=== PATIENT | female | born 2000 | race Caucasian/White ===

== ENCOUNTER 2024-07-12 12:18 | Emergency (ER) | payer OTHER, SELFPAY ==
[2024-07-12 12:24] VITALS: BP 133/83; PULSE 88; TEMP 36.9; O2SAT 100; BMI 28.0
[2024-07-12 12:57] LABS: Bilirubin Urine NEGATIVE (NEGATIVE); Blood Urine LARGE (NEGATIVE); Clarity Urine SL CLOUDY (CLEAR); Color Urine YELLOW (YELLOW); Glucose Urine UA NEGATIVE (NEGATIVE); Ketones Urine NEGATIVE (NEGATIVE); Leukocyte Esterase Urine TRACE (NEGATIVE); Nitrite Urine NEGATIVE (NEGATIVE); Protein Urine 30 mg/dL (NEG/TRACE); Specific Gravity Urine >=1.030 (1.005-1.025); Urobilinogen Urine 0.2 EU/dL (0.2-1.0)
[2024-07-12 12:58] LABS: Urine Microscopic Indicated YES
[2024-07-12 12:59] LABS: HCG Qualitative Urine* NEGATIVE (NEGATIVE); Internal Control Within Normal Limits
[2024-07-12 13:03] LABS: Bacteria Urine MODERATE #/HPF (NONE SEEN); Mucus Urine MODERATE (NONE SEEN); RBC Urine 75-100 #/HPF (0-2)
[2024-07-12 13:04] LABS: Calcium Oxalate Crystals Urine MODERATE; Cast Seen? NONE SEEN #/LPF (NONE SEEN); Crystals Seen? Seen #/HPF (None Seen); Squamous Epithelial Cell Urine MODERATE #/LPF (NONE/RARE); Urine Culture Indicated YES
--- NOTE | 2024-07-12 13:28 | ED.BACK1 ---
HPI HPI - Back Pain/Injury General Chief Complaint: Back Pain/Injury Stated Complaint: LOWER BACK PAIN Time Seen by Provider: 07/12/24 12:35 Source: patient Mode of arrival: walk-in Limitations: no limitations History of Present Illness HPI Narrative: The patient is a 24-year-old female who just diagnosed yesterday with kidney stone, she mentioned that the pain is not getting better with her pain medication She denies any fever or chills she just ate before arrival denying any nausea or vomiting Related Data Home Medications ?Medication ?Instructions ?Recorded ?Confirmed ketorolac 10 mg tablet 10 mg PO Q8H PRN pain 07/12/24 07/12/24 ondansetron 4 mg disintegrating 4 mg PO Q8H PRN nausea and vomiting 07/12/24 07/12/24 tablet oxycodone-acetaminophen 5 mg-325 1 tab PO Q6H PRN pain 07/12/24 07/12/24 mg tablet tamsulosin 0.4 mg capsule 0.4 mg PO Q24H 07/12/24 07/12/24 Allergies Allergy/AdvReac Type Severity Reaction Status Date / Time Penicillins AdvReac Mild Rash Verified 07/12/24 12:24 Opioid HPI Opioid Management Most Recent Opioid Data: No Data to Display Review of Systems ROS Status of ROS 10 or more systems reviewed and unremarkable except as noted in history and below PFSH PFSH Social History Little interest or pleasure in doing things: not at all Feeling down, depressed, or hopeless: not at all Exam Narrative Exam Narrative: Nurses notes and vital signs reviewed and patient is not hypoxic. General: Well-appearing and in no apparent distress. Skin: Warm, dry, no pallor noted. No rash. Head: Normocephalic, atraumatic. Neck: Supple, non-tender. Eye: Pupils are equal, round and EOMI. No scleral icterus. Ears, Nose, Mouth, and Throat: TM are clear, no nasal mucosal hypertrophy. Oral mucosa is moist, no posterior oropharynx erythema, uvula is mid-line Cardiovascular: Regular Rate and Rhythm without murmur, gallop or rub. Respiratory: No accessory muscle use or respiratory distress. Lungs are clear to auscultation, no wheezing, rales or rhonchi Chest Wall: no tenderness Back: No midline thoracic or lumbar vertebral tenderness. Right CVA tenderness Musculoskeletal: normal ROM, no calf or popliteal tenderness, no lower extremity edema/swelling GI: Abdomen is soft, non-distended. Normal bowel sounds. No masses appreciated. No tenderness to palpation. No rebound, guarding, or rigidity noted. Neurological: A&O x4. No cranial nerve dysfunction observed. No truncal ataxia. Moves all extremities. Sensation intact. Psychiatric: Cooperative and interactive. Normal mood and affect. Constitutional Vital Signs, click to edit/add: Last Vital Signs Temp 98.5 F 07/12/24 12:24 Pulse 88 07/12/24 12:24 Resp 18 07/12/24 12:24 BP 133/83 07/12/24 12:24 Pulse Ox 100 07/12/24 12:24 O2 Del Method Room Air 07/12/24 12:24 Course Vital Signs Vital signs: Vital Signs Temperature 98.5 F 07/12/24 12:24 Pulse Rate 88 07/12/24 12:24 Respiratory Rate 18 07/12/24 12:24 Blood Pressure 133/83 07/12/24 12:24 Pulse Oximetry 100 07/12/24 12:24 Oxygen Delivery Method Room Air 07/12/24 12:24 Temperature 98.5 F 07/12/24 12:24 Pulse Rate 88 07/12/24 12:24 Respiratory Rate 18 07/12/24 12:24 Blood Pressure 133/83 07/12/24 12:24 Pulse Oximetry 100 07/12/24 12:24 Oxygen Delivery Method Room Air 07/12/24 12:24 MDM - Back Pain/Injury MDM Narrative Medical decision making narrative: The patient had her workup received from [facility] and she just had a CAT scan and blood workup and urinalysis done less than 24 hours ago in the ER Moderate hydronephrosis on the right side with a 6 mm kidney stone No signs of infection I spoke with the nurse practitioner with in urology service and the patient will be sent over to his office right now The patient father will drive her over there The patient urinalysis shows a UTI in the test is negative Lab Data Labs: Lab Results 07/12/24 Range/Units 12:50 Urine Color Yellow (YELLOW) Urine Clarity Sl cloudy (CLEAR) Urine pH 6.0 (5.0-9.0) Ur Specific [place] >=1.030 A (1.005-1.025) Urine Protein 30 A (NEG/TRACE) mg/dL Urine Glucose (UA) Negative (NEGATIVE) mg/dL Urine Ketones Negative (NEGATIVE) mg/dL Urine Occult Blood Large A (NEGATIVE) Urine Nitrite Negative (NEGATIVE) Urine Bilirubin Negative (NEGATIVE) Urine Urobilinogen 0.2 (0.2-1.0) EU/dL Ur Leukocyte Esterase Trace A (NEGATIVE) Urine RBC 75-100 A (0-2) #/HPF Urine WBC 2-5 A (NONE SEEN) #/HPF Ur Squamous Epith Cells Moderate A (NONE/RARE) #/LPF Urine Crystals Seen A (None Seen) #/HPF Calcium Oxalate Crystal Moderate Urine Bacteria Moderate A (NONE SEEN) #/HPF Urine Casts None seen (NONE SEEN) #/LPF Urine Mucus Moderate A (NONE SEEN) Urine Yeast Seen A (NONE SEEN) Ur Culture Indicated? Yes Urine HCG, Qual Negative (NEGATIVE) Discharge Plan Discharge Chief Complaint: Back Pain/Injury Clinical Impression: Hydronephrosis, Kidney stone Patient Disposition: Home, Self-Care Time of Disposition Decision: 13:00 Condition: Good Prescriptions / Home Meds: No Action ketorolac 10 mg tablet 10 mg PO Q8H PRN (Reason: pain) oxycodone-acetaminophen 5-325 mg tablet 1 tab PO Q6H PRN (Reason: pain) tamsulosin 0.4 mg capsule 0.4 mg PO Q24H ondansetron 4 mg tablet,disintegrating 4 mg PO Q8H PRN (Reason: nausea and vomiting) Print Language: [place] Instructions: Hydronephrosis (ED) Referrals: Dr Styles [Other] - As soon as possible (please drive there now ) Physician,Non-Staff, [Primary Care Provider] - 1 week Discharge Date/Time: 07/12/24 13:09
== END 2024-07-12 13:09 | disposition home or self-care (01) ==
PROVIDERS: Emergency Provider Emergency Medicine
DX: N13.2 Hydronephrosis with renal and ureteral calculous obstruction (principal)
CPT/HCPCS: 81001; 84703; 87086; 99283

== ENCOUNTER 2024-09-24 23:29 | Emergency (ER) | payer OTHER, SELFPAY ==
[2024-09-24 23:45] VITALS: BP 124/92; PULSE 76; TEMP 36.6; O2SAT 97; BMI 28.2
--- NOTE | 2024-09-24 23:50 | ED_ITS ---
HPI - Female Genitourinary General Chief complaint: Urogenital-Female Stated complaint: uti Time Seen by Provider: 09/24/24 23:30 Source: patient Mode of arrival: walk-in Limitations: no limitations History of Present Illness HPI Narrative: 24-year-old female presents to the emergency department for chief complaint of dysuria and frequency. She has had it for the past day or 2. No flank pain or fever or vomiting. She believes she has a UTI. She has been taking an [id number] urinary anesthetic. Related Data Home Medications ?Medication ?Instructions ?Recorded ?Confirmed ketorolac 10 mg tablet 10 mg PO Q8H PRN pain 07/12/24 07/12/24 ondansetron 4 mg disintegrating 4 mg PO Q8H PRN nausea and vomiting 07/12/24 07/12/24 tablet oxycodone-acetaminophen 5 mg-325 1 tab PO Q6H PRN pain 07/12/24 07/12/24 mg tablet tamsulosin 0.4 mg capsule 0.4 mg PO Q24H 07/12/24 07/12/24 Previous Rx's ?Medication ?Instructions ?Recorded cephalexin 500 mg capsule 500 mg PO TID 7 days #21 caps 09/25/24 Allergies Allergy/AdvReac Type Severity Reaction Status Date / Time Penicillins AdvReac Mild Rash Verified 09/24/24 23:44 Review of Systems ROS Narrative A ten point review of systems is negative except as noted above. PFSH PFSH Social History Little interest or pleasure in doing things: not at all Feeling down, depressed, or hopeless: not at all Exam Narrative Exam Narrative: Nurses note and vital signs reviewed and patient is not hypoxic. General: The patient appears well and in no apparent distress. Patient is resting comfortably on cart. Skin: Warm, dry, no pallor noted. There is no rash noted. Head: Normocephalic, atraumatic Eye: Normal conjunctiva, no drainage Ears, Nose, Mouth, and Throat: oral mucosa is moist. Nares patent. Cardiovascular: Regular Rate and Rhythm Respiratory: Patient is in no distress, no accessory muscle use, lungs are clear to auscultation, no wheezing, rales or rhonchi Back: non-tender, no CVA tenderness bilaterally to percussion. GI: Soft and nontender Musculoskeletal: No joint swelling Neurological: A&O, normal speech Psychiatric: Cooperative Constitutional Vital Signs, click to edit/add: Last Vital Signs Temp 98 F 09/24/24 23:45 Pulse 76 09/24/24 23:45 Resp 16 09/24/24 23:45 BP 124/92 H 09/24/24 23:45 Pulse Ox 97 09/24/24 23:45 O2 Del Method Room Air 09/24/24 23:45 Course Vital Signs Vital signs: Vital Signs Temperature 98 F 09/24/24 23:45 Pulse Rate 76 09/24/24 23:45 Respiratory Rate 16 09/24/24 23:45 Blood Pressure 124/92 H 09/24/24 23:45 Pulse Oximetry 97 09/24/24 23:45 Oxygen Delivery Method Room Air 09/24/24 23:45 Temperature 98 F 09/24/24 23:45 Pulse Rate 76 09/24/24 23:45 Respiratory Rate 16 09/24/24 23:45 Blood Pressure 124/92 H 09/24/24 23:45 Pulse Oximetry 97 09/24/24 23:45 Oxygen Delivery Method Room Air 09/24/24 23:45 MDM - Female Genitourinary MDM Narrative Medical decision making narrative: UTI is identified and test is negative. She was started on Keflex here and prescribed same. Treatment diagnosis and follow-up were discussed with the patient. Differential Diagnosis Differential diagnosis: Likely urinary tract infection and other (Pyelonephritis) Lab Data Attestation: I reviewed the patient's lab results. Labs: Lab Results 09/24/24 09/24/24 Range/Units 23:50 23:55 Urine Color Yellow (YELLOW) Urine Clarity Slightly cloudy A (CLEAR) Urine pH 6.0 (5.0-9.0) Ur Specific [place] 1.025 (1.005-1.025) Urine Protein Negative (NEG/TRACE) mg/dL Urine Glucose (UA) Negative (NEGATIVE) mg/dL Urine Ketones Negative (NEGATIVE) mg/dL Urine Occult Blood Negative (NEGATIVE) Urine Nitrite Negative (NEGATIVE) Urine Bilirubin Negative (NEGATIVE) Urine Urobilinogen 1.0 (0.2-1.0) EU/dL Ur Leukocyte Esterase Small A (NEGATIVE) Urine RBC None seen (0-2) #/HPF Urine WBC 75-100 A (NONE SEEN) #/HPF Ur Squamous Epith Cells Moderate A (NONE/RARE) #/LPF Urine Crystals None seen (None Seen) #/HPF Urine Bacteria Trace A (NONE SEEN) #/HPF Urine Casts None seen (NONE SEEN) #/LPF Urine Mucus None seen (NONE SEEN) Ur Culture Indicated? Yes Urine HCG, Qual Negative (NEGATIVE) Ref Lab Order Date 09/24/24 Ref Lab Test Name Urine culture Ref Test Addition Info [facility] Discharge Plan Discharge Chief Complaint: Urogenital-Female Clinical Impression: Urinary tract infection Patient Disposition: Home, Self-Care Time of Disposition Decision: 00:17 Condition: Good Mode of Transportation: Private Vehicle Prescriptions / Home Meds: New cephalexin 500 mg capsule 500 mg PO TID 7 Days Qty: 21 0RF No Action ketorolac 10 mg tablet 10 mg PO Q8H PRN (Reason: pain) oxycodone-acetaminophen 5-325 mg tablet 1 tab PO Q6H PRN (Reason: pain) tamsulosin 0.4 mg capsule 0.4 mg PO Q24H ondansetron 4 mg tablet,disintegrating 4 mg PO Q8H PRN (Reason: nausea and vomiting) Print Language: [place] Instructions: Urinary Tract Infection in Women (ED) Referrals: Physician,Non-Staff, [Primary Care Provider] - 1 week
[2024-09-24 23:56] LABS: Bilirubin Urine NEGATIVE (NEGATIVE); Blood Urine NEGATIVE (NEGATIVE); Glucose Urine UA NEGATIVE (NEGATIVE); HCG Qualitative Urine* NEGATIVE (NEGATIVE); Internal Control Within Normal Limits; Ketones Urine NEGATIVE (NEGATIVE); Leukocyte Esterase Urine SMALL (NEGATIVE); Nitrite Urine NEGATIVE (NEGATIVE); Protein Urine NEGATIVE (NEG/TRACE); Specific Gravity Urine 1.025 (1.005-1.025)
[2024-09-24 23:58] LABS: Clarity Urine SLIGHTLY CLOUDY (CLEAR); Color Urine YELLOW (YELLOW)
[2024-09-25 00:06] LABS: Bacteria Urine TRACE #/HPF (NONE SEEN); Mucus Urine NONE SEEN (NONE SEEN); RBC Urine NONE SEEN #/HPF (0-2); WBC Urine 75-100 #/HPF (NONE SEEN)
[2024-09-25 00:07] LABS: Cast Seen? NONE SEEN #/LPF (NONE SEEN); Crystals Seen? None Seen #/HPF (None Seen); Squamous Epithelial Cell Urine MODERATE #/LPF (NONE/RARE); Urine Culture Indicated YES
[2024-09-25 00:09] LABS: BOX Test Reference Lab Firelands
[2024-09-25] MEDS: CEPHALEXIN 500 MG CAPSULE PO (00:27)
== END 2024-09-25 00:29 | disposition home or self-care (01) ==
PROVIDERS: Emergency Provider Emergency Medicine
DX: N39.0 Urinary tract infection, site not specified (principal)
CPT/HCPCS: 36415; 81001; 84703; 87086; 87150; 87186; 99283

== ENCOUNTER 2024-11-15 03:52 | Emergency (ER) | payer OTHER, SELFPAY ==
[2024-11-15 03:59] VITALS: BP 129/87; PULSE 110; TEMP 37.1; O2SAT 97; BMI 26.8
--- OUTSIDE RECORDS SUMMARY | 2024-11-15 04:04 | XMS_ITS | CCD ---
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 serum b-hCG level is suggested. [facility] has confirmed the use of plasma for this test. This has not been cleared or approved by the U.S. Food and Drug Administration. The FDA has determined that such clearance is not necessary. Performed By: #### U HCG #### [facility] [address] [place], [place] [id number] [employer] Up Operator: Ganesh Newman MD Alanine aminotransferase [En zymatic activity/volume] in Serum or PlasmaOrdered By: Felix Simpson on 07-11-2024 ALT [Catalytic activity/Vol] 30 U/L Normal [facility] Comment on above: Performed By: #### H EPATIC, LIPASE, BMP, CBC #### [facility] [address] [place] [id number] [facility] ALT [Catalytic activity/Vol] Alanine aminotransferase [Enzymatic activity/volume] in Serum or Plasma [facility] Albumin [Mass/volume] in Ser um or Plasma by Bromocresol green (BCG) dye binding methoOrdered By: Felix Simpson on 07-11-2024 Albumin BCG dye [Mass/Vol] 4.6 g/dL 3.5-5.7 [facility] Albumin BCG dye [Mass/Vol] Albumin [Mass/volume] in Serum or Plasma by Bromocresol green (BCG) dye binding metho 3.5-5.7 [facility] Alkaline phosphatase [Enzyma tic activity/volume] in Serum or PlasmaOrdered By: Felix Simpson on 07-11-2024 ALP [Catalytic activity/Vol] 58 U/L Normal [facility] Comment on above: Performed By: #### H EPATIC, LIPASE, BMP, CBC #### [facility] [address] [place] [address] [place] ALP [Catalytic activity/Vol] Alkaline phosphatase [Enzymatic activity/volume] in Serum or Plasma [facility] Appearance of UrineOrdered B y: Felix Montoyamindi on 07-11-2024 Appearance (U) Urine appearance Abnormal Clear [facility] Aspartate aminotransferase [ Enzymatic activity/volume] in Serum or PlasmaOrdered By: Felix Montoyamindi on 07-11-2024 AST [Catalytic activity/Vol] 24 U/L Normal 13-39 [facility] Comment on above: Performed By: #### H EPATIC, LIPASE, BMP, CBC #### [address] AST [Catalytic activity/Vol] Aspartate aminotransferase [Enzymatic activity/volume] in Serum or Plasma 13-39 [facility] Automated basophil %Ordered By: Felix Simpson on 07-11-2024 Basophils/100 WBC (Bld) 0.6 % Normal . [facility] Comment on above: Performed By: #### H EPATIC, LIPASE, BMP, CBC #### [facility] [address] [place] [address] Automated basophil countOrde red By: Felix Simpson on 07-11-2024 Basophils (Bld) [#/Vol] 0.1 10*3/uL Normal 0.0-0.2 [facility] Comment on above: Result Comment: PERF ORMED BY: [place] [address] PATHOLOGIST [employer] WARREN BUSATMANTE M.D. Performed By: #### H EPATIC, LIPASE, BMP, CBC #### [address] Automated blood monocyte cou ntOrdered By: Felix Simpson on 07-11-2024 Monocytes (Bld) [#/Vol] 0.9 10*3/uL High 0.0-0.8 [facility] Comment on above: Performed By: #### H EPATIC, LIPASE, BMP, CBC #### [address] Automated eosinophil %Ordere d By: Felix Simpson on 07-11-2024 Eosinophils/100 WBC (Bld) 0.6 % Normal . [facility] Comment on above: Performed By: #### H EPATIC, LIPASE, BMP, CBC #### [address] Automated eosinophil countOr dered By: Felix Simpson on 07-11-2024 Eosinophils (Bld) [#/Vol] 0.1 10*3/uL Normal 0.0-0.45 [facility] Comment on above: Performed By: #### H EPATIC, LIPASE, BMP, CBC #### [address] Automated monocyte %Ordered By: Felix Simposn on 07-11-2024 Monocytes/100 WBC (Bld) 10.5 % Normal . [facility] Comment on above: Performed By: #### H EPATIC, LIPASE, BMP, CBC #### [address] Automated neutrophil %Ordere d By: Felix Simpson on 07-11-2024 Neutrophils/100 WBC (Bld) 63.3 % Normal . [facility] Comment on above: Performed By: #### H EPATIC, LIPASE, BMP, CBC #### [address] Bacteria [Presence] in Urine by AutomatedOrdered By: Felix Simpson on 07-11-2024 Bacteria Auto Ql (U) Rare [HPF] None Seen [facility] Bacteria Auto Ql (U) Bacteria [Presence] in Urine by Automated None Seen [facility] Basic Metabolic Panelon 06-22 Creatinine Clr Calc Pharmacy 123.53 Normal [facility] Comment on above: Performed By: #### H EPATIC, LIPASE, BMP, CBC #### [address] GFR/1.73 sq M.predicted MDRD (S/P/Bld) [Vol rate/Area] mL/min/{1.73_m2} Normal [facility] Comment on above: Performed By: #### H EPATIC, LIPASE, BMP, CBC #### [address] Basophils Auto (Bld) [#/Vol] Ordered By: Felix Simpson on 07-11-2024 Basophils (Bld) [#/Vol] Automated basoph il count 0.0-0.2 [facility] Basophils/100 WBC Auto (Bld) Ordered By: Felix Simpson on 07-11-2024 Basophils/100 WBC (Bld) Automated basoph il % . [facility] Bilirubin Test strip Ql (U)O rdered By: Felix Simpson on 07-11-2024 Bilirubin Ql (U) Negative Negative [facility] Bilirubin Ql (U) Bilirubin.total [Presence] in Urine by Test strip Negative [facility] Bilirubin.direct [Mass/volum e] in Serum or PlasmaOrdered By: Felix Simpson on 07-11-2024 Bilirubin.direct [Mass/Vol] 0.20 mg/dL High 0.03-0.18 [facility] Bilirubin.direct [Mass/Vol] Bilirubin.direct [Mass/volume] in Serum or Plasma High 0.03-0.18 [facility] Bilirubin.total [Mass/volume ] in Serum or PlasmaOrdered By: Felix Simpson on 07-11-2024 Bilirubin [Mass/Vol] 0.9 mg/dL Normal 0.3-1.0 [facility] Comment on above: Performed By: #### H EPATIC, LIPASE, BMP, CBC #### [address] Bilirubin [Mass/Vol] Bilirubin.total [Mass/volume] in Serum or Plasma 0.3-1.[address] [facility] [address] abdomen pelvis wo conon 1 CT abdomen pelvis wo con [facility] [address] [place] [address] CT Scan Report Signed Patient: Beatris Mack MR#: [id number] : 2000 Acct:[id number] Age/Sex: 24 / F ADM Date: 07/11/24 Loc: ER Room: Type: [facility] ER Attending Dr: Copies to: Felix Simpson DO Ordering Provider: Felix Simpson DO Date of Service: 07/11/24 CT/CT abdomen pelvis wo con: r flank pain CT abdomen pelvis wo con 07/11/2024 2:43 PM SIGNS AND SYMPTOMS: Right flank pain, nausea, history of kidney stones TECHNIQUE: Multidetector ct axial images of the abdomen and pelvis were obtained without IV contrast. Multiplanar reformats were performed and reviewed to further define anatomy and possible pathology. CT was performed with one or more of the following dose reduction techniques: Automated exposure control, adjustment of the mA and/or kV according to patient size, or use of iterative reconstruction technique. COMPARISON: 01/15/2024 FINDINGS: Lower Chest: Within normal limits. ABDOMEN: Liver: Within normal limits. Bile Ducts: Normal caliber. Gallbladder: No calcified gallstones. Normal caliber wall. Pancreas: Within normal limits. Spleen: Within normal limits. Adrenals: Within normal limits. Kidneys: There is right-sided hydronephrosis. There are nonobstructing renal stones bilaterally measuring up to 6 mm in greatest dimension on the right and 4 mm in greatest dimension on the left. Pelvis: Reproductive Organs: No pelvic masses. Ureters: There is a 6 mm stone in the proximal right ureter just below the right ureteropelvic junction. Bladder: Within normal limits. Bowel: Normal caliber. There is a normal appendix in the right lower quadrant. Mesenteric Lymph Nodes: No enlarged mesenteric lymph nodes. Peritoneum: No ascites or free air, no fluid collection. Vessels: within normal limits Retroperitoneum: Within normal limits. Abdominal Wall: Within normal limits. Bones: Within normal limits. CT/CT abdomen pelvis wo con IMPRESSION: There is a 6 mm stone in the proximal right ureter just below the right ureteropelvic junction. This is new compared to the prior exam. There is right-sided hydronephrosis which is new compared to the prior exam. Bilateral nonobstructing renal stones are present as above. Impression dictated by: Gayle Knox M.D.07/11/2024 3:17 PM Dictation Location: [place] [address] Transcribed By: [facility] 07/11/241516 Dictated By: Gayle Knox II, MD 07/11/241510 Signed By: 07/11/241516 Normal [facility] Calcium [Mass/volume] in Ser um or PlasmaOrdered By: Felix Simpson on 07-11-2024 Calcium [Mass/Vol] 10.0 mg/dL Normal 8.6-10.3 [facility] Comment on above: Performed By: #### H EPATIC, LIPASE, BMP, CBC #### [facility] [address] Calcium [Mass/Vol] Calcium [Mass/volume] in Serum or Plasma 8.6-10.3 [facility] Carbon dioxide, total [Moles /volume] in Serum or PlasmaOrdered By: Felix Simpson on 07-11-2024 CO2 [Moles/Vol] 24.2 mmol/L Normal 21.0-31.0 [facility] Comment on above: Performed By: #### H EPATIC, LIPASE, BMP, CBC #### [facility] [address] CO2 [Moles/Vol] Carbon dioxide, total [Moles/volume] in Serum or Plasma 21.0-31.0 [facility] Chloride [Moles/volume] in S sindi or PlasmaOrdered By: Felix Simpson on 07-11-2024 Chloride [Moles/Vol] 104 mmol/L Normal 98-107 [facility] Comment on above: Performed By: #### H EPATIC, LIPASE, BMP, CBC #### [facility] [address] [place] [address] Chloride [Moles/Vol] Chloride [Moles/volume] in Serum or Plasma 98-107 [facility] Color Auto (U)Ordered By: Drew Simpson on 07-11-2024 Color (U) Color of Urine by Auto Yellow [facility] Color of Urine by AutoOrdere d By: Felix Simpson on 07-11-2024 Color (U) Yellow Normal [facility] Comment on above: Order Comment: Name Collection Type:: Clean-Voided Midstream Performed By: #### A DDONUAPLUS, UHCG #### [facility] [address] [place] [address] Complete Blood Count Auto Di ffon 07-11-2024 Mean Corpuscular HGB Conc 33.2 g/dL Normal 32.0-35.0 [facility] Comment on above: Performed By: #### H EPATIC, LIPASE, BMP, CBC #### [facility] [address] [place] [address] [place] Monocytes/100 WBC (Bld) 16.73 % Normal 0.00-20.00 [facility] Comment on above: Performed By: #### H EPATIC, LIPASE, BMP, CBC #### [facility] [address] [place] [address] [place] NRBC% 0.0 /100{WBC} Normal 0-0.5 [facility] Comment on above: Performed By: #### H EPATIC, LIPASE, BMP, CBC #### [facility] [address] [place] [address] [place] Creatinine [Mass/volume] in Serum or PlasmaOrdered By: Felix Simpson on 07-11-2024 Creatinine [Mass/Vol] 0.77 mg/dL Normal 0.60-1.20 [facility] Comment on above: Performed By: #### H EPATIC, LIPASE, BMP, CBC #### [address] Creatinine [Mass/Vol] Creatinine [Mass/volume] in Serum or Plasma 0.60-1.20 [facility] Crystals [Presence] in Urine by AutomatedOrdered By: Felix Simpson on 07-11-2024 Crystals Auto Ql (U) 2+ [HPF] [facility] Crystals Auto Ql (U) Crystals [Presence] in Urine by Automated [facility] Dipstick and Microscopicon 1 Bacteria,Urine Rare Normal None Seen [facility] Comment on above: Order Comment: Name Collection Type:: Clean-Voided Midstream Performed By: #### A DDONUAPLUS, UHCG #### [facility] [address] [place] [address] [place] Bilirubin,Urine Negative Normal Negative [facility] Comment on above: Order Comment: Name Collection Type:: Clean-Voided Midstream Performed By: #### A DDONUAPLUS, UHCG #### [facility] [address] [place] [address] [place] Glucose Ql (U) Normal Normal Normal [facility] Comment on above: Order Comment: Name Collection Type:: Clean-Voided Midstream Performed By: #### A DDONUAPLUS, UHCG #### [facility] [address] [place] [address] [place] Hyaline Casts,Urine None Normal 0-8 [facility] Comment on above: Order Comment: Name Collection Type:: Clean-Voided Midstream Performed By: #### A DDONUAPLUS, UHCG #### [place] [address] [place] Mucus,Urine 3+ Critically abnormal [facility] Comment on above: Order Comment: Name Collection Type:: Clean-Voided Midstream Performed By: #### A DDONUAPLUS, UHCG #### [place] [address] [place] Nitrite,Urine Negative Normal Negative [facility] Comment on above: Order Comment: Name Collection Type:: Clean-Voided Midstream Performed By: #### A DDONUAPLUS, UHCG #### [address] Occult Blood,Urine 3+ High Negative [facility] Comment on above: Order Comment: Name Collection Type:: Clean-Voided Midstream Performed By: #### A DDONUAPLUS, UHCG #### [address] Othe Crystals,Urine 2+ Normal [facility] Comment on above: Order Comment: Name Collection Type:: Clean-Voided Midstream Performed By: #### A DDONUAPLUS, UHCG #### [place] [address] [place] RBC,Urine Innumerable High 0-4 [facility] Comment on above: Order Comment: Name Collection Type:: Clean-Voided Midstream Performed By: #### A DDONUAPLUS, UHCG #### [place] [address] [place] Specificy [place],Urine 1.032 High 1.001-1.030 [facility] Comment on above: Order Comment: Name Collection Type:: Clean-Voided Midstream Performed By: #### A DDONUAPLUS, UHCG #### [facility] [address] Squamous Epithelial Cell,Urine 5-9 High 0-2 [facility] Comment on above: Order Comment: Name Collection Type:: Clean-Voided Midstream Performed By: #### A DDONUAPLUS, UHCG #### [address] Urobilinogen,Urine Normal Normal Normal [facility] Comment on above: Order Comment: Name Collection Type:: Clean-Voided Midstream Performed By: #### A DDONUAPLUS, UHCG #### [address] WBC CLUMP, Urine Occasional High None Seen [facility] Comment on above: Order Comment: Name Collection Type:: Clean-Voided Midstream Performed By: #### A DDONUAPLUS, UHCG #### [address] WBC,Urine 10-19 High 0-4 [facility] Comment on above: Order Comment: Name Collection Type:: Clean-Voided Midstream Performed By: #### A DDONUAPLUS, UHCG #### [address] Eosinophils Auto (Bld) [#/Vo l]Ordered By: Felix Simpson on 07-11-2024 Eosinophils (Bld) [#/Vol] Automated eosinophil count 0.0-0.45 [facility] Eosinophils/100 WBC Auto (Bl d)Ordered By: Felix Simpson on 07-11-2024 Eosinophils/100 WBC (Bld) Automated eosinophil % . [facility] Epithelial cells.squamous [# /area] in Urine sediment by Automated countOrdered By: Felix Simpson on 07-11-2024 Epithelial cells.squamous Auto (Urine sed) [#/Area] 5-9 [HPF] High 0-2 [facility] Epithelial cells.squamous Auto (Urine sed) [#/Area] Epithelial cells.squamous [#/area] in Urine sediment by Automated count High 0-2 [facility] Erythrocyte distribution wid th Auto (RBC) [Ratio]Ordered By: Felix Simpson on 07-11-2024 Erythrocyte distribution width (RBC) [Ratio] Erythrocyte distribution width [Ratio] by Automated count 11.9-15.3 [facility] Erythrocyte distribution wid th [Ratio] by Automated countOrdered By: Felix Simpson on 07-11-2024 Erythrocyte distribution width (RBC) [Ratio] 14.7 % Normal 11.9-15.3 [facility] Comment on above: Performed By: #### H EPATIC, LIPASE, BMP, CBC #### [facility] [address] Erythrocytes [#/area] in Uri ne sediment by Automated countOrdered By: Felix Simspon on 07-11-2024 RBC Auto (Urine sed) [#/Area] Innumerable [HPF] High 0-4 [facility] RBC Auto (Urine sed) [#/Area] Erythrocytes [#/area] in Urine sediment by Automated count High 0-4 [facility] Erythrocytes [#/volume] in B lood by Automated countOrdered By: Felix Simpson on 07-11-2024 RBC (Bld) [#/Vol] 4.30 10*6/uL Normal 3.60-5.00 [facility] Comment on above: Performed By: #### H EPATIC, LIPASE, BMP, CBC #### [facility] [address] Globulin Calc (S) [Mass/Vol] Ordered By: Felix Simpson on 07-11-2024 Globulin (S) [Mass/Vol] Serum globulin measurement by calculation (mass/volume) [facility] Glucose [Mass/volume] in Ser um or PlasmaOrdered By: Felix Simpson on 07-11-2024 Glucose [Mass/Vol] 91 mg/dL Normal 70-100 [facility] Comment on above: ADA recommended refe rence rangeRandom Glucose Reference Range is dependent on time and content of last meal. Glucose of more than 200 mg/dL in a nonstressed, ambulatory subject supports the diagnosis of Diabetes Mellitus. Result Comment: Kennard om Glucose Reference Range is dependent on time and content of last meal. Glucose of more than 200 mg/dL in a nonstressed, ambulatory subject supports the diagnosis of Diabetes Mellitus. ADA recommended reference range Performed By: #### H EPATIC, LIPASE, BMP, CBC #### [facility] [address] Glucose [Mass/Vol] Glucose [Mass/volume] in Serum or Plasma 70-100 [facility] Comment on above: ADA recommended refe rence rangeRandom Glucose Reference Range is dependent on time and content of last meal. Glucose of more than 200 mg/dL in a nonstressed, ambulatory subject supports the diagnosis of Diabetes Mellitus. Glucose [Mass/volume] in Uri ne by Test stripOrdered By: Felix Simpson on 07-11-2024 Glucose Test strip (U) [Mass/Vol] Normal mg/dL Normal [facility] Glucose Test strip (U) [Mass/Vol] Glucose [Mass/volume] in Urine by Test strip Normal [facility] HCG ( test) IA.rapi d Ql (U)Ordered By: Felix Simpson on 07-11-2024 HCG ( test) Ql (U) Negative [facility] HCG ( test) Ql (U) Urine human chorionic gonadotropin (hCG) detection by immunoassay [facility] HCG,Urineon 07-11-2024 Beta HCG ( test) Ql (U) Negative Normal [facility] Comment on above: Order Comment: Name Collection Type:: Clean-Voided Midstream Result Comment: PERF ORMED BY: [place] [address] PATHOLOGIST [employer] WARREN BUSTAMANTE M.D. Performed By: #### A DDONUAPLUS, [facility] #### [facility] [address] [place] [address] Hematocrit Auto (Bld) [Volum e fraction]Ordered By: Felix Simpson on 07-11-2024 Hematocrit (Bld) [Volume fraction] Hematocrit [Volume Fraction] of Blood by Automated count 34.0-46.4 [facility] Hematocrit [Volume Fraction] of Blood by Automated countOrdered By: Felix Simpson on 07-11-2024 Hematocrit (Bld) [Volume fraction] 38.2 % Normal 34.0-46.4 [facility] Comment on above: Performed By: #### H EPATIC, LIPASE, BMP, CBC #### [address] Hemoglobin Test strip Ql (U) Ordered By: Felix Simpson on 07-11-2024 Hemoglobin Ql (U) 3+ High Negative [facility] Hemoglobin Ql (U) Hemoglobin [Presence] in Urine by Test strip High Negative [facility] Hemoglobin [Mass/volume] in BloodOrdered By: Felix Simpson on 07-11-2024 Hemoglobin (Bld) [Mass/Vol] 12.7 g/dL Normal 11.8-15.4 [facility] Comment on above: Performed By: #### H EPATIC, LIPASE, BMP, CBC #### [address] Hemoglobin (Bld) [Mass/Vol] Hemoglobin [Mass/volume] in Blood 11.8-15.4 [facility] Hepatic Panelon 07-11-2024 Albumin [Mass/Vol] 4.6 g/dL Normal 3.5-5.7 [facility] Comment on above: Performed By: #### H EPATIC, LIPASE, BMP, CBC #### [address] Bilirubin,Indirect 0.7 mg/dL Normal [facility] Comment on above: Performed By: #### H EPATIC, LIPASE, BMP, CBC #### [address] Bilirubin.indirect [Mass/Vol] 0.20 mg/dL High 0.03-0.18 [facility] Comment on above: Performed By: #### H EPATIC, LIPASE, BMP, CBC #### [address] Hyaline casts [#/area] in Ur ine sediment by Automated countOrdered By: Felix Simpson on 07-11-2024 Hyaline casts Auto (Urine sed) [#/Area] None [LPF] 0-8 [facility] Hyaline casts Auto (Urine sed) [#/Area] Hyaline casts [#/area] in Urine sediment by Automated count 0-8 [facility] Ketones Test strip Ql (U)Ord ered By: Felix Simpson on 07-11-2024 Ketones Ql (U) Ketones [Presence] in Urine by Test strip High Negative [facility] Ketones [Presence] in Urine by Test stripOrdered By: Felix Simpson on 07-11-2024 Ketones Ql (U) 3+ High Negative [facility] Comment on above: Order Comment: Name Collection Type:: Clean-Voided Midstream Performed By: #### A DDONUAERASMO, [facility] #### [facility] [address] Leukocyte clumps [Presence] in Urine by AutomatedOrdered By: Felix Simpson on 07-11-2024 Leukocyte clumps Auto Ql (U) Occasional [LPF] High None Seen [facility] Leukocyte clumps Auto Ql (U) Leukocyte clumps [Presence] in Urine by Automated High None Seen [facility] Leukocyte esterase [Presence ] in Urine by Test stripOrdered By: Felix Simpson on 07-11-2024 Leukocyte esterase Test strip Ql (U) Negative Normal Negative [facility] Comment on above: Order Comment: Name Collection Type:: Clean-Voided Midstream Performed By: #### A DDONUAPLUS, [facility] #### [facility] [address] [place] [address] Leukocyte esterase Test strip Ql (U) Leukocyte esterase [Presence] in Urine by Test strip Negative [facility] Leukocytes [#/area] in Urine sediment by Automated countOrdered By: Felix Simpson on 07-11-2024 WBC Auto (Urine sed) [#/Area] 10-19 [HPF] High 0-4 [facility] WBC Auto (Urine sed) [#/Area] Leukocytes [#/area] in Urine sediment by Automated count High 0-4 [facility] Leukocytes [#/volume] correc lashon for nucleated erythrocytes in Blood by Automated counOrdered By: Felix Simpson on 07-11-2024 WBC corrected for nucl RBC Auto (Bld) [#/Vol] 8.8 10*3/uL 3.8-11.6 [facility] WBC corrected for nucl RBC Auto (Bld) [#/Vol] Leukocytes [#/volume] corrected for nucleated erythrocytes in Blood by Automated coun 3.8-11.6 [facility] Leukocytes [#/volume] in Blo od by Automated countOrdered By: Felix Simpson on 07-11-2024 WBC (Bld) [#/Vol] 8.8 10*3/uL Normal 3.8-11.6 [facility] Comment on above: Performed By: #### H EPATIC, LIPASE, BMP, CBC #### [facility] [address] Lipase [Enzymatic activity/v olume] in Serum or PlasmaOrdered By: Felix Simpson on 07-11-2024 Lipase [Catalytic activity/Vol] 26.0 U/L Normal 11.0-82.0 [facility] Comment on above: Result Comment: PERF ORMED BY: [place] [address] PATHOLOGIST [employer] WARREN BUSTAMANTE M.D. Performed By: #### H EPATIC, LIPASE, BMP, CBC #### [facility] [address] [place] [address] Lipase [Catalytic activity/Vol] Lipase [Enzymatic activity/volume] in Serum or Plasma 11.0-82.0 [facility] Lymphocytes Auto (Bld) [#/Vo l]Ordered By: Felix Simpson on 07-11-2024 Lymphocytes (Bld) [#/Vol] Lymphocytes [#/volume] in Blood by Automated count 1.00-4.8 [facility] Lymphocytes [#/volume] in Bl ood by Automated countOrdered By: Felix Simpson on 07-11-2024 Lymphocytes (Bld) [#/Vol] 2.2 10*3/uL Normal 1.00-4.8 [facility] Comment on above: Performed By: #### H EPATIC, LIPASE, BMP, CBC #### [facility] [address] [place] [address] [place] Lymphocytes/100 WBC Auto (Bl d)Ordered By: Felix Simpson on 07-11-2024 Lymphocytes/100 WBC (Bld) Lymphocytes/10 0 leukocytes in Blood by Automated count . [facility] Lymphocytes/100 leukocytes i n Blood by Automated countOrdered By: Felix Simpson on 07-11-2024 Lymphocytes/100 WBC (Bld) 25.0 % Normal . [facility] Comment on above: Performed By: #### H EPATIC, LIPASE, BMP, CBC #### [facility] [address] MCH Auto (RBC) [Entitic mass ]Ordered By: Felix Simpson on 07-11-2024 MCH (RBC) [Entitic mass] MCH [Entitic ma ss] by Automated count 24.7-34.3 [facility] MCH [Entitic mass] by Automa lashon countOrdered By: Felix Simpson on 07-11-2024 MCH (RBC) [Entitic mass] 29.5 pg Normal 24.7-34.3 [facility] Comment on above: Performed By: #### H EPATIC, LIPASE, BMP, CBC #### [facility] [address] MCHC Auto (RBC) [Mass/Vol]Or dered By: Felxi Simpson on 07-11-2024 MCHC (RBC) [Mass/Vol] 33.2 g/dL 32.0-35.0 [facility] MCHC (RBC) [Mass/Vol] MCHC [Mass/volume] by Automated count 32.0-35.0 [facility] MCV Auto (RBC) [Entitic vol] Ordered By: Felix Simpson on 07-11-2024 MCV (RBC) [Entitic vol] MCV [Entitic volume] by Automated count 80-100 [facility] MCV [Entitic volume] by Auto mated countOrdered By: Felix Simpson on 07-11-2024 MCV (RBC) [Entitic vol] 88.9 fL Normal 80-100 [facility] Comment on above: Performed By: #### H EPATIC, LIPASE, BMP, CBC #### [facility] [address] Monocyte distribution width [Entitic volume] in Blood by AutomatedOrdered By: Felix Simpson on 07-11-2024 Monocyte distribution width Auto (Bld) [Entitic vol] 16.73 % 0.00-20.00 [facility] Monocyte distribution width Auto (Bld) [Entitic vol] Monocyte distribution width [Entitic volume] in Blood by Automated 0.00-20.00 [facility] Monocytes Auto (Bld) [#/Vol] Ordered By: Felix Simpson on 07-11-2024 Monocytes (Bld) [#/Vol] Automated blood monocyte count High 0.0-0.8 [facility] Monocytes/100 WBC Auto (Bld) Ordered By: Felix Simpson on 07-11-2024 Monocytes/100 WBC (Bld) Automated monocy te % . [facility] Mucus [Presence] in Urine by AutomatedOrdered By: Felix Simpson on 07-11-2024 Mucus Auto Ql (U) 3+ [LPF] Abnormal [facility] Mucus Auto Ql (U) Mucus [Presence] in Urine by Automated Abnormal [facility] Neutrophils Auto (Bld) [#/Vo l]Ordered By: Felix Simpson on 07-11-2024 Neutrophils (Bld) [#/Vol] Neutrophils [#/volume] in Blood by Automated count 1.8-7.7 [facility] Neutrophils [#/volume] in Bl ood by Automated countOrdered By: Felix Simpson on 07-11-2024 Neutrophils (Bld) [#/Vol] 5.5 10*3/uL Normal 1.8-7.7 [facility] Comment on above: Performed By: #### H EPATIC, LIPASE, BMP, CBC #### [facility] [address] Neutrophils/100 WBC Auto (Bl d)Ordered By: Felix Simpson on 07-11-2024 Neutrophils/100 WBC (Bld) Automated neutrophil % . [facility] Nitrite Test strip Ql (U)Ord ered By: Felix Simpson on 07-11-2024 Nitrite Ql (U) Negative Negative [facility] Nitrite Ql (U) Nitrite [Presence] in Urine by Test strip Negative [facility] No Panel InformationOrdered By: Felix Simpson on 07-11-2024 Estimated GFR (CKD-EPI) > 60.0 mL/Min [facility] Creatinine Clearance (Chem 123.53 [facility] Nucleated erythrocytes [Pres ence] in Blood by Automated countOrdered By: Felix Simpson on 07-11-2024 Nucleated RBC Auto Ql (Bld) 0.0 /100{WBC} 0-0.5 [facility] Nucleated RBC Auto Ql (Bld) Nucleated erythrocytes [Presence] in Blood by Automated count 0-0.5 [facility] Platelet mean volume Auto (B ld) [Entitic vol]Ordered By: Felix Simpson on 07-11-2024 Platelet mean volume (Bld) [Entitic vol] Platelet mean volume [Entitic volume] in Blood by Automated count 6.3-10.7 [facility] Platelet mean volume [Entiti c volume] in Blood by Automated countOrdered By: Felix Simpson on 07-11-2024 Platelet mean volume (Bld) [Entitic vol] 8.8 fL Normal 6.3-10.7 [facility] Comment on above: Performed By: #### H EPATIC, LIPASE, BMP, CBC #### [facility] [address] Platelets Auto (Bld) [#/Vol] Ordered By: Felxi Simpson on 07-11-2024 Platelets (Bld) [#/Vol] Platelets [#/volume] in Blood by Automated count 150-450 [facility] Platelets [#/volume] in Bloo d by Automated countOrdered By: Felix Simpson on 07-11-2024 Platelets (Bld) [#/Vol] 300 10*3/uL Normal 150-450 [facility] Comment on above: Performed By: #### H EPATIC, LIPASE, BMP, CBC #### [facility] [address] Potassium [Moles/volume] in Serum or PlasmaOrdered By: Felix Simpson on 07-11-2024 Potassium [Moles/Vol] 3.7 mmol/L Normal 3.5-5.1 [facility] Comment on above: Performed By: #### H EPATIC, LIPASE, BMP, CBC #### [facility] [address] [place] [address] [place] Potassium [Moles/Vol] Potassium [Moles/volume] in Serum or Plasma 3.5-5.1 [facility] Protein Test strip (U) [Mass /Vol]Ordered By: Felix Simpson on 07-11-2024 Protein (U) [Mass/Vol] Protein [Mass/volume] in Urine by Test strip High Negative [facility] Protein [Mass/volume] in Ser um or PlasmaOrdered By: Felix Simpson on 07-11-2024 Protein [Mass/Vol] 7.6 g/dL Normal 6.4-8.9 [facility] Comment on above: Performed By: #### H EPATIC, LIPASE, BMP, CBC #### [address] Protein [Mass/Vol] Protein [Mass/volume] in Serum or Plasma 6.4-8.9 [facility] Protein [Mass/volume] in Uri ne by Test stripOrdered By: Felix Simpson on 07-11-2024 Protein (U) [Mass/Vol] 50 mg/dL High Negative [facility] Comment on above: Order Comment: Name Collection Type:: Clean-Voided Midstream Performed By: #### A DDONUAPLUS, UHCG #### [address] RBC Auto (Bld) [#/Vol]Ordere d By: Felix Simpson on 07-11-2024 RBC (Bld) [#/Vol] Erythrocytes [#/volume] in Blood by Automated count 3.60-5.00 [facility] Serum globulin measurement b y calculation (mass/volume)Ordered By: Felix Simpson on 07-11-2024 Globulin (S) [Mass/Vol] 3.0 g/dL Normal [facility] Comment on above: Performed By: #### H EPATIC, LIPASE, BMP, CBC #### [facility] [address] [place] [address] Serum or plasma albumin/glob ulin mass ratioOrdered By: Felix Simpson on 07-11-2024 Albumin/Globulin [Mass ratio] 1.5 {ratio} Normal [facility] Comment on above: Performed By: #### H EPATIC, LIPASE, BMP, CBC #### [facility] [address] Albumin/Globulin [Mass ratio] Serum or plasma albumin/globulin mass ratio [facility] Serum or plasma anion gap de terminationOrdered By: Felix Simpson on 07-11-2024 Anion gap [Moles/Vol] 9.5 mmol/L Normal 6.0-15.0 [facility] Comment on above: Performed By: #### H EPATANIYA, LIPASE, BMP, CBC #### [address] Anion gap [Moles/Vol] Serum or plasma anion gap determination 6.0-15.0 [facility] Serum or plasma non-glucuron idated bilirubin measurement (mass/volume)Ordered By: Felix Simpson on 07-11-2024 Bilirubin.indirect [Mass/Vol] 0.7 mg/dL [facility] Bilirubin.indirect [Mass/Vol] Serum or plasma non-glucuronidated bilirubin measurement (mass/volume) [facility] Sodium [Moles/volume] in Ser um or PlasmaOrdered By: Felix Simpson on 07-11-2024 Sodium [Moles/Vol] 134 mmol/L Low 136-145 [facility] Comment on above: Performed By: #### H CADEN IVEY BMP, CBC #### [facility] [address] [place] [address] Sodium [Moles/Vol] Sodium [Moles/volume] in Serum or Plasma Low 136-145 [facility] Specific gravity Test strip (U) [Rel density]Ordered By: Felix Simpson on 07-11-2024 Specific gravity (U) [Rel density] 1.032 High 1.001-1.030 [facility] Specific gravity (U) [Rel density] Specific gravity of Urine by Test strip High 1.001-1.030 [facility] Urea nitrogen [Mass/volume] in Serum or PlasmaOrdered By: Felix Simpson on 07-11-2024 Urea nitrogen [Mass/Vol] 17 mg/dL Normal 7-25 [facility] Comment on above: Performed By: #### H EPATANIYA, LIPASE, BMP, CBC #### [facility] [address] Urea nitrogen [Mass/Vol] Urea nitrogen [Mass/volume] in Serum or Plasma 04-14 [facility] Urine appearanceOrdered By: Felix Simpson on 07-11-2024 Appearance (U) Cloudy Critically abnormal Clear [facility] Comment on above: Order Comment: Name Collection Type:: Clean-Voided Midstream Performed By: #### A CHRISTAL CG #### [facility] [address] Urobilinogen Test strip (U) [Mass/Vol]Ordered By: Felix Simpson on 07-11-2024 Urobilinogen (U) [Mass/Vol] Normal mg/dL Normal [facility] Urobilinogen (U) [Mass/Vol] Urobilinogen [Mass/volume] in Urine by Test strip Normal [facility] WBC Auto (Bld) [#/Vol]Ordere d By: Felix Simpson on 07-11-2024 WBC (Bld) [#/Vol] Leukocytes [#/volume] in Blood by Automated count 3.8-11.6 [facility] pH Test strip (U)Ordered By: Felix Simpson on 07-11-2024 pH (U) pH of Urine by Test strip 5.0-9.0 [facility] pH of Urine by Test stripOrd ered By: Felix Simpson on 07-11-2024 pH (U) 6.0 [pH] Normal 5.0-9.0 [facility] Comment on above: Order Comment: Name Collection Type:: Clean-Voided Midstream Performed By: #### A CHRISTAL UHCG #### [facility] [address] abdomen pelvis wo conon 0 01-16-2024 CT abdomen pelvis wo con [facility] [place] [address] CT Scan Report Signed Patient: Beatris Mack MR#: [id number] : 2000 Acct:[id number] Age/Sex: 23 / F ADM Date: 01/15/24 Loc: ER Room: Type: [facility] ER Attending Dr: Copies to: Elias Rogers DO Ordering Provider: Elias Rogers DO Date of Service: 01/15/24 CT/CT abdomen pelvis wo con: f CT Abdomen and Pelvis withoutcontrast TECHNIQUE: Axial imaging with 2-D reconstruction. . The CT exam was performed using one or more the following dose reduction techniques: Automated exposure control, adjustment of the MA and/or Kv according to patient size, or use of the iterative reconstruction technique. COMPARISON: 06/16/18 History: History of UTI. Hematuria. Vaginal discharge. Flank pain. LIMITATIONS: None LOWER THORAX Unremarkable LIVER: Unremarkable GALLBLADDER: No gallbladder abnormality identified. BILE DUCTS: No dilatation SPLEEN: Unremarkable PANCREAS: Unremarkable ADRENAL GLANDS: Unremarkable KIDNEYS:Multiple bilateral renal calculi measuring up to 6 mm. No obstructive uropathy. AORTA: No abdominal aortic aneurysm identified. RETROPERITONEUM: No significant retroperitoneal abnormalities identified. MESENTERY:Unremarka ble SMALL BOWEL: The small bowel loops are nondistended. APPENDIX: The appendix is normal. COLON: Unremarkable URINARY BLADDER: Urinary bladder is unremarkable. REPRODUCTIVE SYSTEM: Reproductive structures are unremarkable. PNEUMOPERITONEUM: None PERITONEAL FLUID:None BONY STRUCTURES: Unremarkable ABDOMINAL WALL: Unremarkable CT/CT abdomen pelvis wo con IMPRESSION: Bilateral nephrolithiasis. No obstructive uropathy. Impression dictated by: Shaan Bojorquez M.D.01/16/2024 12:02 PM Dictation Location: [place] [address] Transcribed By: [facility] 01/16/24 1202 Dictated By: Shaan Bojorquez DO 01/16/24 1158 Signed By: 01/16/24 1202 Normal [facility] Automated erythrocytes count in urine sediment (number/area)Ordered By: Elias Rogers on 01-15-2024 RBC Auto (Urine sed) [#/Area] 0-1 [HPF] 0-4 [facility] Automated leukocytes count i n urine sediment (number/area)Ordered By: Elias Rogers on 01-15-2024 WBC Auto (Urine sed) [#/Area] 10-19 [HPF] 0-4 [facility] Automated urine color determ inationOrdered By: Elias Rogers on 01-15-2024 Color (U) Yellow Normal Yellow [facility] Comment on above: Order Comment: Name Collection Type:: Clean-Voided Midstream Performed By: #### H EPATIC, LIPASE, BMP, CBC #### [address] Bilirubin Test strip Ql (U)O rdered By: Elias Rogers on 01-15-2024 Bilirubin Ql (U) Negative Negative [facility] Dipstick and Microscopicon 0 01-15-2024 Appearance (U) Clear Normal Clear [facility] Comment on above: Order Comment: Name Collection Type:: Clean-Voided Midstream Performed By: #### H EPATIC, LIPASE, BMP, CBC #### [facility] [address] [place] [address] Bacteria,Urine 1+ High None Seen [facility] Comment on above: Order Comment: Name Collection Type:: Clean-Voided Midstream Performed By: #### H EPATIC, LIPASE, BMP, CBC #### [address] Bilirubin,Urine Negative Normal Negative [facility] Comment on above: Order Comment: Name Collection Type:: Clean-Voided Midstream Performed By: #### H EPATIC, LIPASE, BMP, CBC #### [address] Glucose Ql (U) Normal Normal Normal [facility] Comment on above: Order Comment: Name Collection Type:: Clean-Voided Midstream Performed By: #### H EPATIC, LIPASE, BMP, CBC #### [facility] [address] [place] [address] Hyaline Casts,Urine 0-1 Normal 0-8 [facility] Comment on above: Order Comment: Name Collection Type:: Clean-Voided Midstream Performed By: #### H EPATIC, LIPASE, BMP, CBC #### [address] Ketones Ql (U) Trace High Negative [facility] Comment on above: Order Comment: Name Collection Type:: Clean-Voided Midstream Performed By: #### H EPATIC, LIPASE, BMP, CBC #### [address] Leukocyte esterase Test strip Ql (U) 2+ High Negative [facility] Comment on above: Order Comment: Name Collection Type:: Clean-Voided Midstream Performed By: #### H EPATIC, LIPASE, BMP, CBC #### [address] Nitrite,Urine Negative Normal Negative [facility] Comment on above: Order Comment: Name Collection Type:: Clean-Voided Midstream Performed By: #### H EPATIC, LIPASE, BMP, CBC #### [address] Occult Blood,Urine Negative Normal Negative [facility] Comment on above: Order Comment: Name Collection Type:: Clean-Voided Midstream Performed By: #### H EPATIC, LIPASE, BMP, CBC #### [address] Protein,Urine Negative Normal Negative [facility] Comment on above: Order Comment: Name Collection Type:: Clean-Voided Midstream Performed By: #### H EPATIC, LIPASE, BMP, CBC #### [address] RBC LM.HPF (Urine sed) [#/Area] 0 /[HPF] Normal 0-4 [facility] Comment on above: Order Comment: Name Collection Type:: Clean-Voided Midstream Performed By: #### H EPATIC, LIPASE, BMP, CBC #### [address] Specificy [place],Urine 1.028 Normal 1.001-1.030 [facility] Comment on above: Order Comment: Name Collection Type:: Clean-Voided Midstream Performed By: #### H EPATIC, LIPASE, BMP, CBC #### [address] Squamous Epithelial Cell,Urine 5-9 High 0-2 [facility] Comment on above: Order Comment: Name Collection Type:: Clean-Voided Midstream Performed By: #### H EPATIC, LIPASE, BMP, CBC #### [address] [place] [address] [place] Urobilinogen,Urine Normal Normal Normal [facility] Comment on above: Order Comment: Name Collection Type:: Clean-Voided Midstream Performed By: #### H EPATIC, LIPASE, BMP, CBC #### [facility] [address] WBC,Urine 10-19 High 0-4 [facility] Comment on above: Order Comment: Name Collection Type:: Clean-Voided Midstream Performed By: #### H EPATIC, LIPASE, BMP, CBC #### [facility] [address] HCG ( test) IA.rapi d Ql (U)Ordered By: PROVIDER TEMP on 01-15-2024 HCG ( test) Ql (U) Negative [facility] HCG,Urineon 01-15-2024 Beta HCG ( test) Ql (U) Negative Normal [facility] Comment on above: Order Comment: Name Collection Type:: Clean-Voided Midstream Result Comment: PERF ORMED BY: [place] [address] PATHOLOGIST [employer] WARREN BUSTAMANTE M.D. Performed By: #### H EPATIC, LIPASE, BMP, CBC #### [address] Ketones Auto test strip (U) [Mass/Vol]Ordered By: Elias Rogers on 01-15-2024 Ketones (U) [Mass/Vol] Trace Negative [facility] - UrinalysisOrder ed By: Elias Rogers on 01-15-2024 Hyaline casts LM Ql (Urine sed) 0-1 [LPF] 0-8 [facility] Nitrite Test strip Ql (U)Ord ered By: Elias Rogers on 01-15-2024 Nitrite Ql (U) Negative Negative [facility] Protein Auto test strip (U) [Mass/Vol]Ordered By: Elias Rogers on 01-15-2024 Protein (U) [Mass/Vol] Negative Negative [facility] Specific gravity Auto test s trip (U) [Rel density]Ordered By: Elias Rogers on 01-15-2024 Specific gravity (U) [Rel density] 1.028 1.001-1.030 [facility] Squamous epithelial cells de tection in urine sediment by light microscopyOrdered By: Elias Rogers on 01-15-2024 Epithelial cells.squamous LM Ql (Urine sed) 5-9 [HPF] 0-2 [facility] Urine Cultureon 01-15-2024 Bacteria identified Cx Nom (U) 20,000 colonies/ml mixed bacterial skin contaminants 2 Days PERFORMED BY: [place] [address] PATHOLOGIST [employer] WARREN BUSTAMANTE M.D. Normal [facility] Comment on above: Performed By: #### H EPATIC, LIPASE, BMP, CBC #### [facility] [address] [place] [address] Urine bacteria detection by automated methodOrdered By: Elias Rogers on 01-15-2024 Bacteria Auto Ql (U) 1+ None Seen [facility] Urine clarity by refractomet ry automatedOrdered By: Elias Rogers on 01-15-2024 Clarity Refractometry automated (U) Clear Clear [facility] Urine glucose measurement by automated test strip (mass/volume)Ordered By: Elias Rogers on 01-15-2024 Glucose Auto test strip (U) [Mass/Vol] Normal mg/dL Normal [facility] Urine hemoglobin detection b y automated test stripOrdered By: Elias Rogers on 01-15-2024 Hemoglobin Auto test strip Ql (U) Negative Negative [facility] Urine leukocyte esterase det ection by automated test stripOrdered By: Elias Rogers on 01-15-2024 Leukocyte esterase Auto test strip Ql (U) 2+ Negative [facility] Urine pH measurement by auto mated test stripOrdered By: Elias Rogers on 01-15-2024 pH (U) 6.0 [pH] Normal 5.0-9.0 [facility] Comment on above: Order Comment: Name Collection Type:: Clean-Voided Midstream Performed By: #### H EPATIC, LIPASE, BMP, CBC #### [facility] [address] [place] [address] [place] Urobilinogen Auto test strip (U) [Mass/Vol]Ordered By: Elias Rogers on 01-15-2024 Urobilinogen (U) [Mass/Vol] Normal mg/dL Normal [facility] Automated erythrocytes count in urine sediment (number/area)Ordered By: Cecilio Larkiny on 10-14-2023 RBC Auto (Urine sed) [#/Area] 10-19 [HPF] 0-4 [facility] Automated leukocytes count i n urine sediment (number/area)Ordered By: Cecilio Ronn on 10-14-2023 WBC Auto (Urine sed) [#/Area] 5-9 [HPF] 0-4 [facility] Automated urine color determ inationOrdered By: Cecilio Brody on 10-14-2023 Color (U) Yellow Normal Yellow [facility] Comment on above: Order Comment: Name Collection Type:: Clean-Voided Midstream Performed By: #### H EPATIC, LIPASE, BMP, CBC #### [address] Bilirubin Test strip Ql (U)O rdered By: Cecilio Brody on 10-14-2023 Bilirubin Ql (U) Negative Negative [facility] Chlamydia/GC Amplificationon 10-14-2023 Chlamydia Trachomotis, LEV Negative Normal Negative [facility] Comment on above: Order Comment: SOURC E OF SPECIMEN: Genital Performed By: #### H EPATIC, LIPASE, BMP, CBC #### [address] Neisseria Gonorrhoeae, LEV Negative Normal Negative [facility] Comment on above: Order Comment: SOURC E OF SPECIMEN: Genital Result Comment: Perf ormed at: =G - [facility] [id number] [place] Set Up Operator: Mavis Sow MD, Phone: [phone] PERFORMED BY: [place] [address] PATHOLOGIST [employer] WARREN BUSTAMANTE M.D. Performed By: #### H EPATIC, LIPASE, BMP, CBC #### [place] [address] [place] Dipstick and Microscopicon 0 10-14-2023 Appearance (U) Clear Normal Clear [facility] Comment on above: Order Comment: Name Collection Type:: Clean-Voided Midstream Performed By: #### H EPATIC, LIPASE, BMP, CBC #### [address] Bacteria,Urine None Seen Normal None Seen [facility] Comment on above: Order Comment: Name Collection Type:: Clean-Voided Midstream Performed By: #### H EPATIC, LIPASE, BMP, CBC #### [address] Bilirubin,Urine Negative Normal Negative [facility] Comment on above: Order Comment: Name Collection Type:: Clean-Voided Midstream Performed By: #### H EPATIC, LIPASE, BMP, CBC #### [address] Glucose Ql (U) Normal Normal Normal [facility] Comment on above: Order Comment: Name Collection Type:: Clean-Voided Midstream Performed By: #### H EPATIC, LIPASE, BMP, CBC #### [place] [address] [place] Hyaline Casts,Urine 0-8 Normal 0-8 [facility] Comment on above: Order Comment: Name Collection Type:: Clean-Voided Midstream Performed By: #### H EPATIC, LIPASE, BMP, CBC #### [address] Ketones Ql (U) Negative Normal Negative [facility] Comment on above: Order Comment: Name Collection Type:: Clean-Voided Midstream Performed By: #### H EPATIC, LIPASE, BMP, CBC #### [address] Leukocyte esterase Test strip Ql (U) 2+ High Negative [facility] Comment on above: Order Comment: Name Collection Type:: Clean-Voided Midstream Performed By: #### H EPATIC, LIPASE, BMP, CBC #### [address] Nitrite,Urine Negative Normal Negative [facility] Comment on above: Order Comment: Name Collection Type:: Clean-Voided Midstream Performed By: #### H EPATIC, LIPASE, BMP, CBC #### [place] [address] [place] Occult Blood,Urine Negative Normal Negative [facility] Comment on above: Order Comment: Name Collection Type:: Clean-Voided Midstream Performed By: #### H EPATIC, LIPASE, BMP, CBC #### [place] [address] [place] Protein,Urine Negative Normal Negative [facility] Comment on above: Order Comment: Name Collection Type:: Clean-Voided Midstream Performed By: #### H EPATIC, LIPASE, BMP, CBC #### [place] [address] [place] RBC,Urine 10-19 High 0-4 [facility] Comment on above: Order Comment: Name Collection Type:: Clean-Voided Midstream Performed By: #### H EPATIC, LIPASE, BMP, CBC #### [place] [address] [place] Specificy [place],Urine 1.022 Normal 1.001-1.030 [facility] Comment on above: Order Comment: Name Collection Type:: Clean-Voided Midstream Performed By: #### H EPATIC, LIPASE, BMP, CBC #### [place] [address] [place] Squamous Epithelial Cell,Urine 3-4 High 0-2 [facility] Comment on above: Order Comment: Name Collection Type:: Clean-Voided Midstream Performed By: #### H EPATIC, LIPASE, BMP, CBC #### [place] [address] [place] Urobilinogen,Urine Normal Normal Normal [facility] Comment on above: Order Comment: Name Collection Type:: Clean-Voided Midstream Performed By: #### H EPATIC, LIPASE, BMP, CBC #### [place] [address] [place] WBC,Urine 5-9 High 0-4 [facility] Comment on above: Order Comment: Name Collection Type:: Clean-Voided Midstream Performed By: #### H EPATIC, LIPASE, BMP, CBC #### [address] Fungal Smearon 10-14-2023 Fungal Smear Fungus Smear Results No Yeast Like Elements Seen Trichomonas Screen No Trichomonas Seen Trich Reference Reference range = None Seen PERFORMED BY: [place] [address] PATHOLOGIST [employer] WARREN BUSTAMANTE M.D. Normal [facility] Comment on above: Performed By: #### C UU, FS, ADDONUAPLUS, CUGEN, UHCG #### [address] #### GCCHLAMAMP #### [facility] , Genital Cultureon 10-14-2023 Genital Culture No More GC Specimen not tested for Neisseria gonorrheae ORGANISM: Strep. agalactiae Grp B (O:B) Quantity of Growth Light Growth ORGANISM: Gardnerella vaginalis (O:GARVAG) Comments Organism Not Routinely Tested for Susceptibilities Quantity of Growth Heavy Growth ORGANISM: Batool albicans (O:CANALB) Quantity of Growth Light Growth PERFORMED BY: [place] [address] PATHOLOGIST [employer]AMBO[employer] PILOT WARREN BUSTAMANTE M.D. Normal [facility] Comment on above: Performed By: #### H EPATIC, LIPASE, BMP, CBC #### [address] HCG ( test) IA.rapi d Ql (U)Ordered By: Cecilio Brody on 10-14-2023 HCG ( test) Ql (U) Negative [facility] HCG,Urineon 10-14-2023 Beta HCG ( test) Ql (U) Negative Normal [facility] Comment on above: Order Comment: Name Collection Type:: Clean-Voided Midstream Result Comment: PERF ORMED BY: [place] [address] PATHOLOGIST [employer] P[employer] WARREN BUSTAMANTE M.D. Performed By: #### H EPATIC, LIPASE, BMP, CBC #### [address] [address] [facility] Ketones Auto test strip (U) [Mass/Vol]Ordered By: Cecilio Brody on 10-14-2023 Ketones (U) [Mass/Vol] Negative Negative [facility] Laboratory - UrinalysisOrder ed By: Cecilio Brody on 10-14-2023 Hyaline casts LM Ql (Urine sed) 0-8 [LPF] 0-8 [facility] Nitrite Test strip Ql (U)Ord ered By: Cecilio Brody on 10-14-2023 Nitrite Ql (U) Negative Negative [facility] Protein Auto test strip (U) [Mass/Vol]Ordered By: Cecilio Brody on 10-14-2023 Protein (U) [Mass/Vol] Negative Negative [facility] Specific gravity Auto test s trip (U) [Rel density]Ordered By: Cecilio Brody on 10-14-2023 Specific gravity (U) [Rel density] 1.022 1.001-1.030 [facility] Squamous epithelial cells de tection in urine sediment by light microscopyOrdered By: Cecilio Brody on 10-14-2023 Epithelial cells.squamous LM Ql (Urine sed) 3-4 [HPF] 0-2 [facility] Trichomonas vaginalis detect ion by wet preparationOrdered By: Ceciilo Brody on 10-14-2023 T. vaginalis Wet prep Ql (Unsp spec) [facility] Urine Cultureon 10-14-2023 Bacteria identified Cx Nom (U) 40,000 colonies/ml mixed bacterial skin contaminants 2 Days PERFORMED BY: [place] [id number] PATHOLOGIST [employer] WARREN BUSTAMANTE M.D. Normal [facility] Comment on above: Performed By: #### H EPATIC, LIPASE, BMP, CBC #### [facility] [address] Urine bacteria detection by automated methodOrdered By: Cecilio Brody on 10-14-2023 Bacteria Auto Ql (U) None seen None Seen [facility] Urine clarity by refractomet ry automatedOrdered By: Cecilio Brody on 10-14-2023 Clarity Refractometry automated (U) Clear Clear [facility] Urine glucose measurement by automated test strip (mass/volume)Ordered By: Cecilio Brody on 10-14-2023 Glucose Auto test strip (U) [Mass/Vol] Normal mg/dL Normal [facility] Urine hemoglobin detection b y automated test stripOrdered By: Cecilio Brody on 10-14-2023 Hemoglobin Auto test strip Ql (U) Negative Negative [facility] Urine leukocyte esterase det ection by automated test stripOrdered By: Cecilio Brody on 10-14-2023 Leukocyte esterase Auto test strip Ql (U) 2+ Negative [facility] Urine pH measurement by auto mated test stripOrdered By: Cecilio Brody on 10-14-2023 pH (U) 6.0 [pH] Normal 5.0-9.0 [facility] Comment on above: Order Comment: Name Collection Type:: Clean-Voided Midstream Performed By: #### H EPATIC, LIPASE, BMP, CBC #### [facility] [address] [place] [address] Urobilinogen Auto test strip (U) [Mass/Vol]Ordered By: Cecilio Brody on 10-14-2023 Urobilinogen (U) [Mass/Vol] Normal mg/dL Normal [facility] Automated erythrocytes count in urine sediment (number/area)Ordered By: Felix Simpson on 08-26-2023 RBC Auto (Urine sed) [#/Area] 3-4 [HPF] 0-4 [facility] Automated leukocytes count i n urine sediment (number/area)Ordered By: Felix Simpson on 08-26-2023 WBC Auto (Urine sed) [#/Area] 5-9 [HPF] 0-4 [facility] Bacteria identified Aer cx N om (Genital specimen)Ordered By: Felix Simpson on 08-26-2023 Genital Culture Gardnerella vaginalis [facility] Bilirubin Test strip Ql (U)O rdered By: Felix Simpson on 08-26-2023 Bilirubin Ql (U) Negative Negative [facility] Color Auto (U)Ordered By: Drew Simpson on 08-26-2023 Color (U) Yellow Yellow [facility] Fungal cultureOrdered By: Drew Simpson on 08-26-2023 Fungus identified Cx Nom (Unsp spec) [facility] HCG ( test) IA.rapi d Ql (U)Ordered By: Felix Simpson on 08-26-2023 HCG ( test) Ql (U) Negative [facility] Ketones Auto test strip (U) [Mass/Vol]Ordered By: Felix Simpson on 08-26-2023 Ketones (U) [Mass/Vol] Negative Negative [facility] Laboratory - Microbiology an d Antimicrobial susceptibilityOrdered By: Felix Simpson on 08-26-2023 C. trachomatis DNA LEV+probe Ql (Unsp spec) Negative Negative [facility] N. gonorrhoeae DNA LEV+probe Ql (Unsp spec) Negative Negative [facility] Comment on above: Performed at: =[facility] [address] [id number] Director: Mavis Sow MD, Phone: [phone] Laboratory - UrinalysisOrder ed By: Felix Simpson on 08-26-2023 Hyaline casts LM Ql (Urine sed) 0-8 [LPF] 0-8 [facility] Nitrite Test strip Ql (U)Ord ered By: Felix Simpson on 08-26-2023 Nitrite Ql (U) Negative Negative [facility] Protein Auto test strip (U) [Mass/Vol]Ordered By: Felix Simpson on 08-26-2023 Protein (U) [Mass/Vol] Negative Negative [facility] Specific gravity Auto test s trip (U) [Rel density]Ordered By: Felix Simpson on 08-26-2023 Specific gravity (U) [Rel density] 1.020 1.001-1.030 [facility] Squamous epithelial cells de tection in urine sediment by light microscopyOrdered By: Felix Simpson on 08-26-2023 Epithelial cells.squamous LM Ql (Urine sed) 3-4 [HPF] 0-2 [facility] Trichomonas vaginalis detect ion by wet preparationOrdered By: Felix Simpson on 08-26-2023 T. vaginalis Wet prep Ql (Unsp spec) [facility] Urine bacteria detection by automated methodOrdered By: Felix Simpson on 08-26-2023 Bacteria Auto Ql (U) None seen None Seen [facility] Urine clarity by refractomet ry automatedOrdered By: Felix Simpson on 08-26-2023 Clarity Refractometry automated (U) Clear Clear [facility] Urine culture routineOrdered By: Felix Simpson on 08-26-2023 Bacteria identified Cx Nom (U) 2 Days [facility] Urine glucose measurement by automated test strip (mass/volume)Ordered By: Felix Simpson on 08-26-2023 Glucose Auto test strip (U) [Mass/Vol] Normal mg/dL Normal [facility] Urine hemoglobin detection b y automated test stripOrdered By: Felix Simpson on 08-26-2023 Hemoglobin Auto test strip Ql (U) 2+ Negative [facility] Urine leukocyte esterase det ection by automated test stripOrdered By: Felix Simpson on 08-26-2023 Leukocyte esterase Auto test strip Ql (U) 1+ Negative [facility] Urobilinogen Auto test strip (U) [Mass/Vol]Ordered By: Felix Simpson on 08-26-2023 Urobilinogen (U) [Mass/Vol] Normal mg/dL Normal [facility] pH Auto test strip (U)Ordere d By: Felix Simpson on 08-26-2023 pH (U) 5.5 [pH] 5.0-9.0 [facility] Automated erythrocytes count in urine sediment (number/area)Ordered By: Aura Brown on 12-20-2022 RBC Auto (Urine sed) [#/Area] 5-9 [HPF] 0-4 [facility] Automated leukocytes count i n urine sediment (number/area)Ordered By: Aura Brown on 12-20-2022 WBC Auto (Urine sed) [#/Area] 50-100 [HPF] 0-4 [facility] Bilirubin Test strip Ql (U)O rdered By: Aura Brown on 12-20-2022 Bilirubin Ql (U) Negative Negative [facility] Color Auto (U)Ordered By: Valdez Brown on 12-20-2022 Color (U) Yellow Yellow [facility] Fungal cultureOrdered By: Valdez Brown on 12-20-2022 Fungus identified Cx Nom (Unsp spec) [facility] HCG ( test) IA.rapi d Ql (U)Ordered By: Aura Brown on 12-20-2022 HCG ( test) Ql (U) Positive [facility] Ketones Auto test strip (U) [Mass/Vol]Ordered By: Aura Brown on 12-20-2022 Ketones (U) [Mass/Vol] Negative Negative [facility] Laboratory - UrinalysisOrder ed By: Aura Brown on 12-20-2022 Hyaline casts LM Ql (Urine sed) 0-8 [LPF] 0-8 [facility] Nitrite Test strip Ql (U)Ord ered By: Aura Brown on 12-20-2022 Nitrite Ql (U) Positive Negative [facility] Protein Auto test strip (U) [Mass/Vol]Ordered By: Aura Brown on 12-20-2022 Protein (U) [Mass/Vol] Negative Negative [facility] Specific gravity Auto test s trip (U) [Rel density]Ordered By: Aura Brown on 12-20-2022 Specific gravity (U) [Rel density] 1.019 1.001-1.030 [facility] Squamous epithelial cells de tection in urine sediment by light microscopyOrdered By: Aura Brown on 12-20-2022 Epithelial cells.squamous LM Ql (Urine sed) 5-9 [HPF] 0-2 [facility] Trichomonas vaginalis detect ion by wet preparationOrdered By: Aura Brown on 12-20-2022 T. vaginalis Wet prep Ql (Unsp spec) [facility] Urine bacteria detection by automated methodOrdered By: Aura Brown on 12-20-2022 Bacteria Auto Ql (U) 2+ None Seen [facility] Urine clarity by refractomet ry automatedOrdered By: Aura Brown on 12-20-2022 Clarity Refractometry automated (U) Cloudy Clear [facility] Urine glucose measurement by automated test strip (mass/volume)Ordered By: Aura Brown on 12-20-2022 Glucose Auto test strip (U) [Mass/Vol] Normal mg/dL Normal [facility] Urine hemoglobin detection b y automated test stripOrdered By: Aura Brown on 12-20-2022 Hemoglobin Auto test strip Ql (U) Negative Negative [facility] Urine leukocyte esterase det ection by automated test stripOrdered By: Aura Brown on 12-20-2022 Leukocyte esterase Auto test strip Ql (U) 4+ Negative [facility] Urobilinogen Auto test strip (U) [Mass/Vol]Ordered By: Aura Brown on 12-20-2022 Urobilinogen (U) [Mass/Vol] Normal mg/dL Normal [facility] pH Auto test strip (U)Ordere d By: Aura Brown on 12-20-2022 pH (U) 5.5 [pH] 5.0-9.0 [facility] Automated erythrocytes count in urine sediment (number/area)Ordered By: Lilliam Linares on 08-22-2022 RBC Auto (Urine sed) [#/Area] 3-4 [HPF] 0-4 [facility] Automated leukocytes count i n urine sediment (number/area)Ordered By: Lilliam Linares on 08-22-2022 WBC Auto (Urine sed) [#/Area] 20-49 [HPF] 0-4 [facility] Bilirubin Test strip Ql (U)O rdered By: Lilliam Linares on 08-22-2022 Bilirubin Ql (U) Negative Negative [facility] Casts typing in urine sedime nt by light microscopyOrdered By: Lilliam Linares on 08-22-2022 Casts LM Nom (Urine sed) None seen [LPF] None S een [facility] Color Auto (U)Ordered By: Yadi Linares on 08-22-2022 Color (U) Yellow Yellow [facility] HCG ( test) IA.rapi d Ql (U)Ordered By: Lilliam Linares on 08-22-2022 HCG ( test) Ql (U) Negative [facility] Ketones Auto test strip (U) [Mass/Vol]Ordered By: Lilliam Linares on 08-22-2022 Ketones (U) [Mass/Vol] Trace Negative [facility] Laboratory - UrinalysisOrder ed By: Lilliam Linares on 08-22-2022 Hyaline casts LM Ql (Urine sed) 0-8 [LPF] 0-8 [facility] Nitrite Test strip Ql (U)Ord ered By: Lilliam Linares on 08-22-2022 Nitrite Ql (U) Negative Negative [facility] Protein Auto test strip (U) [Mass/Vol]Ordered By: Lilliam Linares on 08-22-2022 Protein (U) [Mass/Vol] Negative Negative [facility] Specific gravity Auto test s trip (U) [Rel density]Ordered By: Lilliam Linares on 08-22-2022 Specific gravity (U) [Rel density] 1.019 1.001-1.030 [facility] Squamous epithelial cells de tection in urine sediment by light microscopyOrdered By: Lilliam Linares on 08-22-2022 Epithelial cells.squamous LM Ql (Urine sed) 5-9 [HPF] 0-2 [facility] Trichomonas vaginalis detect ion in urine sediment by light microscopyOrdered By: Lilliam Linares on 08-22-2022 T. vaginalis LM Ql (Urine sed) 0-1 [HPF] None Seen [facility] Urine bacteria detection by automated methodOrdered By: Lilliam Linares on 08-22-2022 Bacteria Auto Ql (U) None seen None Seen [facility] Urine clarity by refractomet ry automatedOrdered By: Lilliam Linares on 08-22-2022 Clarity Refractometry automated (U) Clear Clear [facility] Urine glucose measurement by automated test strip (mass/volume)Ordered By: Lilliam Linares on 08-22-2022 Glucose Auto test strip (U) [Mass/Vol] Normal mg/dL Normal [facility] Urine hemoglobin detection b y automated test stripOrdered By: Lilliam Linares on 08-22-2022 Hemoglobin Auto test strip Ql (U) Negative Negative [facility] Urine leukocyte esterase det ection by automated test stripOrdered By: Lilliam Linares on 08-22-2022 Leukocyte esterase Auto test strip Ql (U) 4+ Negative [facility] Urine sediment renal epithel ial cell count by microscopy (number/high power field)Ordered By: Lilliam Linares on 08-22-2022 Epithelial cells.renal LM.HPF (Urine sed) [#/Area] None seen [HPF] 0-1 [facility] Urobilinogen Auto test strip (U) [Mass/Vol]Ordered By: Lilliam Linares on 08-22-2022 Urobilinogen (U) [Mass/Vol] Normal mg/dL Normal [facility] pH Auto test strip (U)Ordere d By: Lilliam Linares on 08-22-2022 pH (U) 6.0 [pH] 5.0-9.0 [facility] XR KNEE LT 4V or >on 022 XR KNEE LT 4V or > EXAM: XR KNEE LT 4V or > HISTORY: Pain COMPARISON: None. TECHNIQUE: 5 views of the left knee were obtained. FINDINGS: No acute fracture or dislocation is seen. The joint spaces are preserved. There is no significant left knee joint effusion. IMPRESSION: 1. No acute or significant abnormality of the left knee is seen. If there is concern for internal derangement, a nonemergent outpatient MRI is recommended. Electronically authenticated by: Yared JOYNER Date: 2022-06-07 02:52 Normal [facility] Coding Summaryon 08-29-2021 Coding Summary HTMLBase 64 HishcqpdEEt5wRf+PGh lYWQ+CM7TRPLjA46kvV LfnP8UX2sACW9QRFBNT BSBMG7CXW4flWS9RNui R7YigqUi JfsmzWPcZA82VZy0BMC 8rYyoGIfueE3qdDQpQ8 l9PmXmZU99gC83IWtxK GWnIiI3MpGlnigxbBHn Q4jcZzEmdTWzEaf+PHR hYmxlIHdpZHRoPScxMD NcQgMzxDcyKH2iUv6kS GVyLWNvbGxhcHNlOiBj z9zcDPBaPTwwGP0urWl aD9QqfXM4NXEvd2l4Nb 48dHI+ZVQgTDX1dFyuS Spea863XpSwi5taXEA7 zJReKYrqCQL6M93ur0E 3KTGiXWWiWXR8gCN9sK 0swKttliebF7YutSWgD gX0UHV2eRTkxD9kgLri kkrhjL7gMph+H12QIY0 EETVBCE3BPrc4P2UjWb wvdHI+QT95RIDsMA49r FUpaPSuj1tpfFs2BdAh FZWyRBX6oZpoWAddc4A qTSNzY13znGSsm9O1AG WlzTpryQIvTlVjxDO8v Y9kWMzkjkxnp4whfwij Usdxq2laif60nO22C87 eXPbkNYYmPDD6RNTkMT AvuRdxbs8ipG4dDc4+I Nqmv0usb2xsmNo8CnFk WMOydkYdeHstXNV9j2U aMo07D7BayBpzu7YqJi y6ni92gCXij6J8uVK4H TccAJPfdB1dNUnbGoC5 WIMlNxCpfG87zXTsYUe oRl0xjFcipXtnMP7bZS YytwxiYSXunS4qMIDiy YEcuIdbNY1mQJAugbsn k151KiPlUJV8SWMecQP vN3ZocX4wCnJfZJBfCG UwP2EhdHHsLVofZ800P IjvCiO9BTCvkkVxY8Jg BSFeuSfhRdA5b0T3Io7 Fz3AvkqwdPRI5SHdcWN BsBvI6XwPzQvD0E3ZuQ qi9CMHunMplEC1bJ5Fp ARFtpdxbzjcyxDL6ERF wQDXrcN28lGOcXDgwEm 1hg9S0c213FLWvCSYnp L19Yw4puZtiCNNiwRCH wI1upkajv3tyezyqRbX uHATmGQu2NUt3OSJrlO nvJqSkAWH6NdK4YTH3w YYujC6rnFenllytrU5f Oyc+P48igV1iWIQ6ZKZ 7xfatBCAmhyNvXJ66HO 37K7WrHjitqXSgiED+P ZYslxNipQtzJI0mQpHb f9mql7YnTMeyI2GyAGQ oICnmQll5JRQpTEJ3fM K1jV2aIAHnTQpon7Y6l WH7Q3KudtBivh0kc0as HVQcSPnaE70gvAYgr3F 6JANtsHT7HVCssZylBc MimX60Ias+PGNvbGdyb 6YpZtkbg8xqb4lhnBa4 IjMwJSIgdmFsaWduPSJ 2k3JlHr23O15gNIyaIP RoPSIxNSUiIHZhbGlnb o4deP7mVw1+PGNvbCB3 cGG1hR5mQHDaXjB5ZEt tN379PaYgcYFcXasay5 lmf5mywAa2CiTbOTZzx zWvoJrfTYV0c6FoSw70 V55yXPyvDVLjDEOpPNH pJCNirYudjd7maX5kUh 8+UW7oi3fhtt70zY46g HI+QUJjTDC1hPcuJIlc VBNxjU1qODfxGrY9AYH gZrXeyA40hIDqIWvxYp 4ajJqjaPbwYQ8hUJXqg ucmt296FsNao8taRIOh qESuXWjqNIZ8D19hn6O 1VSVkIUJrUIM6aUA3jA 1hbGlnbjogbGVmdDsgd wEnaHejHAooBBpxP368 IHRvcDsnPlBhdGllbnQ hQoArGYe0N3PdZcc1HZ VypOwsNP6soUEwRFstJ v8upQrmoYrdLA8jJKFv iyrpo594DyWuv2pvEVS xzKUbYNngLBC0E68rn2 P9RVFsPAZkSVP1aOV9k D1muBmcvitmtLAupUju bdMvqVdxCMzrTVyrP09 6IHRvcDsnPkJpcnRoIE AktRC6DQ17LY92lBVit 9U7yMP6K0AgECIkwcpi bztgtEF1CXFuKHKkpP7 6Em4brXinDa6eBQRfZB G3PCTdpVTeK1AsbW2vX mMeJHVbIHGxG8DgvAJg WMlrU054DKogTjL1XAE xxiElN6QvCELnqQofTx X3q7T2Xd8PT1W9TA44P R22cMCnu3H2nGH9J4Fh BDUvqsrkuhgbvIP4JFP lBFSckS96Og5edVilZg 8iKSWiJWT5OUMgfTBzN 5TnhI3bBnHuFQRpZYHb W1LwdTXsTIanO532GXr iViB5UQMghuTpF0DhTQ DroXhmLkL4a0B5Xj2NR Mo5KJ03FN65oOUck2A9 kJJ9J8EaEHZzchaseul eiZM5UGNkUBGrlC19Ed 9sbOczRx9mBZQiXTS7V XJxkWEvJ7VjnD9kRkWg NKEyLWJxJ5ZprJAqKXl hY258ZBboTvC2APIcwx ZcA3BeJUGtlCdrLzI8t 5R7Wd5JKIXpRD42MZF8 eEX9YT30EO89C0HxZpy vdGFibGU+PHRhYmxlIH dpZHRoPScxMDAlJyBzd VyuHP7aCh9hEEFzYDEm kIjndJZqAqCai4ilKDT oDXbeIA6vwTurZ1NjvX L2BEYmi7n1Oc51N31mL 3JvdXA+OFZdvMA2tCA2 zC3mDjOnZsD8OSfhN00 1DzQycZTvHusek6gkj2 xptZd5NjN3GLIeivLvp UjcWOQ3y0BxPu40V87r IHdpZHRoPSIxNSUiIHZ dbVsjhb3ksZ6pId1+PG YpxDL9yNP1zH3mWhIsB jP8MAzaE546VmGjoURt Itlsg2ndi3kzeAb5JyZ sSZGjucVipZehLFL3i5 TsMw55M1RskOukb6HbF qq7uf75fCRxd7R4kWI0 V7TiEATtlijhfRWohPr tMT4tMAHdobzrGATxkA 5hOEXrF1w9GnViJuN1U AbvL3BrknZ3DGGdtBCz OFhzDIL4B92tj2A6BCN uHVGfDWM9lVP6cV3oiL lnbjogbGVmdDsgdmVyd NmnGCtxKHyrG655ZWEn oFfkQHUtwE3vJHXmcRR pvMutNR8tHUCsbiqeUk eFF5BSEekzEFQGFNNVS VC2H6DbPmy7LUUhsLyo BW6fbKSdUAryPr9jpMd lcCvcOE4vXHSdzpneVX LrfF5jDANlsPJodHmhI F6aPBGfvkuxw226UeSo OBH8SLTxhNSrR9OovO0 wKsXbOXEjXEVoK8NfgJ AzHAlcM676PCfkEeE7B KTfwkBdD5YrZZXogUcy TxA9j7C1Gk3kNH8gCx3 vIENwNM15WN57zANko0 G1kPL5H9KpDHXvrihcp tkskMD2DNUvUFHjgJ98 rOBxUMajKd8tu8B2t50 5PVBwHQZsoQ83Sq2czY vlCOCrhOWJrU8frvdtl 1uwhopyGgCcSBMaGGg2 QWd4GWNirYzbFiRbMGX 4CdY5QKP5nRXndY2veB jvyuvpmP0sSjl+MjEgW FDydiE7C0FsLzf8BYDt xDrwYH2nfJXtJTbtPy3 cfRzfsYzdNW3yJFKnwi voQPVseP8nQSEwiDSnf XeoOP8cJIPvskklp755 MrXoCDT3YQWidWXrF1P rgN8qSpGiPLEiOQObC2 EukMCzVZglT452AJedV oF4QAEcyqNbM9FpHJZj fKovIlT1i9Y9Cl9QYJ3 XELK9W6DxKtv8SWTosE eaTG6yrWFfZHijPa4br EkehZliFN3uKDOfrzvv WLZgyS2kLHKdpVUjbRj zAR7xXWFiqpobm392Gi RbUPQ5RVQtsVKmI6Bef T0aZzCoWBFwSCSbH0Bl qQPlSQwfD327QJquEfL 0XKTznrDqD2RyZTCqqP eyBnB8s3M1Ah8NWDanl GQ+NA64ti11K2McRznf Zsg0YYScXVT1jVC5nF2 dAMNeYTqwx7E3hXB6M2 YhrhNuvc1ud4ypYOGyJ XmeE82hdMKob5L2JCMg sSI6WFOanYzyNhZbrG7 3Oyc+ODVvnAjxa5CbSb tak9sjw0tcoYj2HjNcY YWnrgBmsFpfSBV8r1Ch Ma11C81vOKuyBCKfVUK iLBUeFHRgcPsfao0nwT 9wIi8+KWQyxHM0pEE3q J1sReXmExF0KGlkU631 LxAorFFnNhjok8eep9j wySj9RbUcXHGfapJnvG urDVJ3p0LqRi48A4Sjp Iuht1UvHev6ze74vEKu u2T3mTP1Q5GwXUDxrct xxFPwqOrmAZ5dYFWhic qpQVYuzI2aGCRkJ0w9R rSsBiQ8IIucL9JjkpA4 IGJvbGQgMTBwdCBUaW1 wuxgdr3plmvvyBtWyWY VyZOo0BGr3VGTlgPmmC uTrGLZ0BhV4LXI2rSMa tN7ifOqyvvoakB5xKiy +UPv1r5gljTPgCO8qaT F2JQ65KP63zEOwc6H9o TD1S2ZmXTLuuesxjqog lJM9DBJeABSxmK42Ct1 eeZxwIz7kRVVyXDD8ZO YpsVFiQ5VqaE6jMdHmT AWsRERvD5SayFBeRJtj Y031AToeGxU2PAPwzsU dQ4FeGUCztSotTnQ7v5 M4Bh9QBW55GI61LY41p RLkg8L1oUQ2K1BcTKLm ibepwqtxzQM9HFHdJVO goY52Cs7ikLlcXs9wHJ XpWPF8SBPfgGSdP6Cwr N5lBnVjHWZrBOSxK9Dv dDMdWFnyM783FSdwXmU 7XZPrghWfL8GeLUMafR zwUiO5t0U3Un7REk73X Y56QA39lPWob6C1iIP4 F0NpFGTowppgwutifDT 9ZVMpARScwE26Vt4hvV nmGz8aJMAsOOX2FNLqv ZQpR1VjhO5eWnOuUTQm PCUjB3WflXPgAArjE46 9RUdaYiQ5EVReefXaG3 GkJWUztLjfAhA5z2G3G p4YVAlelvq7T6SpMxsa dHI+IX08LULpNR40yGO tkPBsn0bizRo8StNpOX CrVVY7yAxbGGcic1BcG BTcS64roHDlx0L6WUGi bGx (more content not included)... [facility] Coding Summary HTMLBase 64 JlhqdpiaASs1kKo+PGh lYWQ+LO4WTVJuO10wlT SnuS5KQ4xXEF6FFAFDT ITNYI2DGS4tcDP8YWza V3HmdoWi MohhcJOnBZ34USj2FNM 0rNcsGRgktP0cgLArG6 z0LyTfVQ26rD03UBooC FXaJiN8VcGkmrtawRUg F9twYePfqHUlKnx+PHR hYmxlIHdpZHRoPScxMD BlGsWylLokML1wPr5mJ GVyLWNvbGxhcHNlOiBj w1teYDVkCYfrSU3dmVc bM8ObnCD2OSBok0t9Oo 48dHI+CSOaBUR7yXwzB Romq587RqZoe0bsQME3 gRCdYVijJAK1O83sj7W 5MMApDMKkUUT3qJB0zX 2xaXrxumnbC8GhsQVuP gD5ZJB7uLSosO6fkSqi chzezO0xYqz+Y63MHQ7 OFBUISE2GEmu5X1WjEb wvdHI+ZX12VGZyHY50a TChfHBso0gknYw3LrDd ZBKyVJB6uXbwXZyzn6E aUGPeX46xlXOjz1F5SP AlbLyujJZgBcWdgQV8y Q4gDScnptulp0rhbcqk Ckbdp5gsqe23aB27D89 yETedLQKiDSC6VFMpZJ RbeUlbdd2ycF6uXn3+I Tudp3rtd0oaoVf9FoYs KVDaisQpyEbgVGN8b8G kDh09I8XmiCaoo5UaKn r6wz01fTQan1R5vQR4J UubMPAukJ8nNHonUxT3 YCCrTmVfkT66aJSmPYy tLq1vzVwxaMruUF4nYZ KecszgYYAxaV1fTWMqs BDnzTgkCM3cYHHviwlz h678VuQeWVN9NTJfqYF cX5JfjU1sLjHpYLUpBC ZwR5DauTPlLJedN170Q NvbYsC1EZAbjwSiF9Ve QQGraSluUfP1f5B9Sj6 Hd5VzjtwyQAC7QBnoMI KuRrS4RjMlVdC8C7MdG kv4IZVebNvhLN7eQ7Ea EBIxpdojtaeljVS9PWF pJGXrpJ69vAHoUUxmSm 4ry3Y6f899BGUeCYDvw F35Hp3ydEpoYZCbwYWR lT8yoqzzs3hxsmiuDdC qNFNnDMx3KFs9MDHnkD iaEjMsSUS0UnV1WYB1d MIviZ8gkUfuccfwgK8w Oyc+E50hmQ2hXEL2MJE 1rvaxWHVrviGiVL59BF 03G9GqBxtyyEDocDL+P FIkmqRdvUqrJV9aEtJf e5tif3EjPPiqI7ZuGKM oFVjzNwc1KKQxCRL8aY T9dA1aQJGmAMwvo1A5h PR7F0OfomPoyz8sj7av IVGlXBqcF32nrRAla7O 8UOFmaYS2TDYxeWjvQn InqU55Hxe+PGNvbGdyb 2VhYzafx3ynk3uxiOv6 IjMwJSIgdmFsaWduPSJ 6z7TeGw31C82xIRlaLH RoPSIxNSUiIHZhbGlnb d6joR0xXb2+PGNvbCB3 oOA6pN9oKQDfFuF2ELe tM354UjFqvMCxHhxjh2 nmz7tdwMh5SsQkTIApt uQoeUlnWJN3c7UqZa74 N31dSWjbAHHxUKXbIAL fMBBmpNsaru3qhC5xJe 8+DC9nh8osdl10pV61s HI+VOItRFC0xNycFCpg ONZmgD8oHRbtPzL3UNS cTeAncU73gGPnDLgdLk 1khLpqfNjrHI2oUMHrp favv108XhMsb4scJGXn lDFkPAqhYVN4F00my9W 8URNmBZYoFCM1iZD2pF 1hbGlnbjogbGVmdDsgd fAwgCmtLLimQBhaL499 IHRvcDsnPlBhdGllbnQ oBlMaNPm4V2OoNjt4CU EwkEwiMK2pjCXpGFxjA n2cyUiroWjwVT5iLNAe oailn118KmRhu2xeOGX fgTIePTqvZIX8R94zz1 N5XMGpBRUnYAH7iVJ2m Q5snEjncjzijTRvuJlx ixFwhNauRIxhTJqvA56 6IHRvcDsnPkJpcnRoIE YohTY7EW22OS09wTCvs 2R2sAN7E9DgDEDzrcgx bvzgvDI9WGZsKRWtrQ2 3Ni0itShtCb4hGNWzFD I4QETkpMMnB2PcxN4kY mTiWRAeBUPoY3IclMUo EArnC902KFdjRjK8XSI ywgQiT2KzUMLjeSaeGr M3g8B3Qf5OH2H4BM28U B04lGZwe4D0lYK2G7Ih JIOxsgdbyjhaiZL1ALJ iYSJunS72An8riVbyIo 1vEXHnDLW6GHZvkLFbO 7KgnA5hTjZrWCWwQEQw K8WifQGdBPcjU791NXe jFlB2CKWpizWzQ7XmHS YcfFppHyW9m5K4Zx9QZ Wt5RY65XK14kQDsl8G6 aAA3J2KwEXJywhkcwkm jsWH1XQAaBRBchT71Az 4zqZipBz4xKZQrJSF6W IJyxGWyI2EywI7mWpGd BHTfTYXhC9UugZVhEVs rY307ILmxPfV5COPsuy OiY9IrNMNlwVytSgM6h 8A6Me4TMATmOS46KUQ2 sQR8HF31BK24N0WwGmj vdGFibGU+PHRhYmxlIH dpZHRoPScxMDAlJyBzd SmnWO2eMt5uHPDoVVDz nZezsCPjWlRyo1rkWNL yPOivOL3pwEhoP3XlfM D8QHXfp6o2Ar14T61rG 3JvdXA+WBEdtFP8hYV6 rI4nIpMnXvW0KIcsW58 5OpNmjRVdBchqt6bzn5 zrdKh1TnW2ARPokmJgy EbpTRG0f4WnTb93T66d IHdpZHRoPSIxNSUiIHZ rrEseom6gsD1oWz4+PG QykEX4eSL5dQ3uGzUkP oP4DSvxK958PcOohJNi Qjrpr3eaa0oaeKq3NoA yOFTbluIqnCbwKBK6h6 McRg33W3VqzByvm3CsP jq9lw17oWYpw0Z3xVQ5 B3ZyAJNzsfbqaBIhiQv rMS7tKRVstepaASArzR 7pBWYaX6m0UmCxMzE5G SrbW0WfauQ0XAKlsRLm SDthHSO1O24nw0P9XNS jGZAkPFS2eIR7hD3wjF lnbjogbGVmdDsgdmVyd UxsKJfhCCflC223NREx hFnsFXTmfT9qXATnmBK pqOgoBY9qFCYkvuouXx hOY2XPPnesPQXOSLGXG VW6Z5DtEed0SSSiiWiu RM9fkZPlRUwsCu9xxRl yjHsmUZ8jJROfvwutQA GynN1kUHNlyDYvuFumA U9qTWLlsdvvd201IuFf XJV9XAPapRTbI7OigR1 pEiCaEDLmQLZqG7YgvL QoOIiiS087HQphScL8F QGapnOhF7LpTJZptEkz QuS7d1B6Vj6iOP7fLk0 iCELoYI59HS21gXYuv6 I2bJG0L8MhKLEqjbuop ilndMV7WQYzWENvgE74 lLNxVHhgTf6xv2E9o61 8MQLzNZCfgE74Vg9nsU qaPNKeaSNPcH6wsgxxb 2gzvmgjOqFlWFHwVEp3 DKg0KZFqjXsdJbDkJCT 7FzD9KYQ5cHXleO6rbX lemqiciI9xMlv+MjEgW XOxrmO2W8HnWkf7ICBi bZvvXO4uoHKdTKtjOt5 fvVjpwTefXJ2nAHEvju fkYMYwsS7fAOWvnYNmk GraPS4aXTCdrvtat554 GbNeOTF0XSXmbADcX5R apS7zKjPrIOIeCIWyN7 YsaGTpEDmtA110FWttC tG7YNFjblZqK8BnYDTx oCssXpR2c7Y6Cn7VNB1 XUFL3K6XnIqd9CXKufO mxMV6jaTVjLRihAw3ze AjkyFclZN5cRQDgcsou UJRjzI0oWRTpeYIjnTe dXF8lVNMxfcoor310Qa AwJZW9JFAjlZLdP4Zxr R5cFwEzIDRmMMLhH9Vu lYMwSLxpP290DZymDpK 8IKHblsOtF2HkWBVuoL tsDwK1t9A5Py7BcCNcK 8GkW9o7I1ZdOybggSU+ UU89UWFxFZ68eDQozYL bl7htvVc2NjJrZEVdRU A7hXnfXXbmr6JfJIXlY 02dnGOpt2F8BJDzqRsp eMJtBrUnxCS1jV6yIDg jmcaed3gkrmfnYdqbz5 tumd16oL63H58gYQsoA HRoPSIzMCUiIHZhbGln hs1elG4oKw7+PGNvbCB 5vTN9nC7kOzFwIiS1SJ coV865VlMrvAEeDokzr 8dbr9yojLz3WoUcHSNd hpHusXybIBS1f3EfEi4 0H00gMQvdXSFeFJGjOI RgOQDidSocfr0krE7yO i8+OD3ok1cwiv08aM26 dHI+GEFcJIK9zLaqFFm jONZksZ7wDZorAyK8LK BnQsJquK36xLNoTEyjQ g8rtBhukXmeQC5tBOYg btokd105FoIez2ygULT lvCExFUnfMMR5D20nu0 M2WIKqPSJrICR6oCZ3x R6rpWegyhgwkUItsQsu dfVmwOnpLCvuMPqdL28 6VYOuyJsmNiRvrXVoK7 gzwbMTTT6jDwtmxCN+P WPmNLF3zZsoSEdcBMZl qE4xRNRcU2b8QfOgJlE 2RJgrF6IgixN4TYRbwG ZsQAZjjFEFrH3mpqjtm 0cffufoOjYvNLJwNDr8 WVp9KENilKaxFuXzDLI 9NsA4IDU7mXEsxW0zfM xdfhhwoW9oEwj+RklOO jwvdGQ+WYIgTFP4hPwv IQpqSIGvcL5kGZGkN6n 0XpMkJpC6OMqeP9Djee C3GWFpbPWwJVUtrLERg F2caradm4rfribrTfUn GEBhCPt5IIp9UVNznUm nRoBmWNL9TaO4KMW4xW PopN4tgNdvycqmrP9pS yc+TVJOOjwvdGQ+PHRk HEJ8oGmcZLjcTTIwmW6 sSHMsF0x8UaWmRfF8SJ lwX2XfikC2HDOuoPOjJ MXsnFLCeI1xfhisp8og gzqlAuDgFBOiWQq5LGy 1SIFhgVkvCkUvFHT6Lu G3GMS6hRKdtJ3ndTniw iypmY0jSdq+BDM0CSO0 SE40RE50A5BmVcqpbVC ibGU+PHRhYmxlIHdpZH RoPScxMDAlJyBzdHlsZ M4dId0hHXQsALCjxAmi cHN (more content not included)... [facility] ED Note-Nursingon 08-27-2021 ED Note-Nursing Pt called and spoke with Von BOYCE. Pt stated her dog ate her prescription. Script for Flagyl 500 mg 1 tab BID x7 [facility] pt request. [facility] Chlamydia/GC Amplification L Con 08-21-2021 Chlamydia trachomatis, LEV LC Positive Abnormal Negative [facility] Comment on above: Performed By: #### 1 [id number] ####[facility] (DEFAULT)[address] [place] [address] Neisseria gonorrhoeae, LEV LC Negative Invalid Interpretation Code Negative [facility] Comment on above: Result Comment: Perf ormed At: =G [facility] [id number] Magi Mcintyre MD Ph:[phone] Performed By: #### 1 [id number] ####[facility] (DEFAULT)[address] [address] ED Note - Otheron 08-21-2021 ED Note - Other [id number] [facility] ED Note - Other Pt positive for chlamydia. Dr. Olivares notified. He faxed Rx doxycycline to [facility] pharmacy, [address] Pt notified of results. Instructed to notify any sexual partners and to follow up with OB-BROACH GRINDER MD. She verbalizes understanding. [Electronically Signed on: 08/21/2021 13:27 EST] __ Janell Novoa RN [Verified on: 08/21/2021 13:27 EST] __ Janell Novoa RN [facility] ED Note - Physicianon 2020 ED Note - Physician Patient: BEATRIS MACK Age: 21 years Sex: FEMALE : 2000 Associated Diagnoses: None Author: Joel Olivares MD Addendum Rad-Lab Results Addendum: Report: 08/21/2021 10:45:00 . Patient had chlamydia sent out testing turn positive. We will contact patient regarding the positive testing. We will treat with doxycycline twice daily for 10 days. Notify patient that testing as by state law will be forwarded to [facility]. [Electronically Signed on: 08/21/2021 10:46 EST] __ Joel Olivares MD [Verified on: 08/21/2021 10:46 EST] __ Joel Olivares MD [facility] C Urineon 08-19-2021 C Urine Urine Culture ordered as a result of parameters set on specific urine dip and urine microsopic results. No growth at [address] [facility] Comment on above: Performed By: #### 5 [id number] ####[facility] (DEFAULT)[address] [place] [address] C Genitalon 08-18-2021 C Genital Normal vaginal migue isolated No growth of GC at 3 days. Corrected Results Below Gram Negative Diplococci not seen. 3+ Gram Positive Rods 1+ Gram Positive Cocci Rare Gram Negative Rods [facility] Comment on above: Performed By: #### 2 [id number] ####[facility] (DEFAULT)[address] [address] ED Clinical Summaryon 2020 ED Clinical Summary [facility] Emergency Department [address] [place] [address] ED Clinical Summary PERSON INFORMATION Name: BEATRIS MACK Age: 21 Years Sex: FEMALE : 2000 MRN: Acct#: Visit Reason: Vaginal discharge; VAGINAL DISCHARGE/ITCHING Arrival: 08/17/2021 13:36:40 Discharge: 08/17/2021 16:11:00 LOS: 000 02:35 Check In: 08/17/2021 13:36:40 Checkout:08/17/2021 16:11:00 Address: [facility] [address] PCP: Provider, None PROVIDER INFORMATION Provider Role Assigned Unassigned Leonidas Jc PA-C ED PA 08/17/2021 13:43:44 Yannick Rolon PA-C ED PA 08/17/2021 13:43:52 08/17/2021 13:43:55 Anmol RN, Yeni Abdalla ED Nurse 08/17/2021 13:50:58 VITALS INFORMATION Vital Sign Triage Latest Temperature Tympanic Temperature Temporal Artery Pulse Rate 85 bpm 85 bpm O2 Sat 98 % 98 % Respiratory Rate 18 br/min 18 br/min Blood Pressure /94 mmHg /94 mmHg MEDICAL INFORMATION Medications Given: Medication Dose Route metroNIDAZOLE (Flagyl) 500 mg PO Allergy Information: No Known Medication Allergies PHYSICIAN DOCUMENTATION Patient: BEATRIS MACK Age: 21 years Sex: FEMALE : 2000 Associated Diagnoses: Trichomonas vaginalis (TV) infection Author: Leonidas Jc PA-C Basic Information Time seen: Date & time 08/17/2021 13:57:00. History source: Patient. Arrival mode: Private vehicle. History limitation: None. History of Present Illness 21-year-old female presents here to the emergency department chief complaint of vaginal discharge. Patient states her last menstrual cycle ended around the of this month. States after that she developed yellow white-colored discharge following vaginal itching. States that the discharge does have an odor to it. She does note a history of bacterial vaginosis, states she is sexually active and has unprotected sex. States she would like STI testing today as well. Is not concerned for STI but wants to make sure. Denies any history of yeast infections denies any recent antibiotics. Denies any fever chills denies any pelvic pain abdominal pain. States dysuria which started today. No significant history of UTI. No chills. No recent sick contacts or travel. WALL ATTENDANT is Dr. Aguilera. No known medication allergies. No current medications. No other concerns at this time. Review of Systems Constitutional symptoms: No fever, no chills, no sweats, no weakness, no fatigue. Skin symptoms: No rash, no pruritus, no abrasions. Eye symptoms: Vision unchanged. ENMT symptoms: No ear pain, no sore throat, no nasal congestion, no sinus pain. Respiratory symptoms: No shortness of breath, no cough. Cardiovascular symptoms: No chest pain, no palpitations, no tachycardia, no syncope, no diaphoresis, no peripheral edema. Gastrointestinal symptoms: No abdominal pain, no nausea, no vomiting, no diarrhea, no constipation. Genitourinary symptoms: Vaginal discharge, no dysuria, no hematuria, no vaginal bleeding. Musculoskeletal symptoms: No back pain, no Muscle pain, no Joint pain. Neurologic symptoms: No headache, no dizziness, no altered level of consciousness, no numbness, no tingling, no weakness. Additional review of systems information: All other systems reviewed and otherwise negative. Health Status Allergies: Allergic Reactions (Selected) No Known Medication Allergies. Medications: (Selected) Inpatient Medications Ordered Flagyl: 500 mg = 2 tab(s), PO, Once Prescriptions Prescribed Flagyl 500 mg oral tablet: 500 mg = 1 tab(s), PO, q12hr, for 7 day(s), 14 tab(s), 0 Refill(s). Menstrual history: Last menstrual period: Date 08/09/2021. Past Medical/ Family/ Social History Social history: Social & Psychosocial Habits Alcohol 08/17/2021 Alcohol Use: Never Substance Abuse 08/17/2021 Substance use: Never Tobacco 08/17/2021 Smoking tobacco use: Black & Milds 2-3 per day Electronic Cigarette/Vaping 08/17/2021 Electronic Cigarette Use: Never . Physical Examination General: Alert, no acute distress. Skin: Warm, dry, intact, no pallor, no rash. Head: Normocephalic, atraumatic. Neck: Supple, no tenderness. Eye: Pupils are equal, round and reactive to light, extraocular movements are intact, normal conjunctiva. Ears, nose, mouth and throat: Oral mucosa moist. Cardiovascular: Regular rate and rhythm, No murmur, Normal peripheral perfusion, No edema, S1, S2, regular rhythm. No murmurs gallops or rubs.. Respiratory: Lungs are clear to auscultation, respirations are non-labored, breath sounds are equal, Symmetrical chest wall expansion, Lung sounds are clear bilaterally. No wheezing rhonchi or crackles on exam.. Gastrointestinal: Soft, Nontender, Non distended, Normal bowel sounds, No organomegaly, Bowel sounds are present x4 quadrants. Abdomen is soft, nontender, nondistended. No rigidity rebound or guarding on exam.. Genitourinary: No tenderness, normal external genitalia, no lesions, Normal (more content not included)... Normal [facility] ED Note - Physicianon 2020 ED Note - Physician Patient: BEATRIS MACK Age: 21 years Sex: FEMALE : 2000 Associated Diagnoses: Trichomonas vaginalis (TV) infection Author: Hosea LOVE, Leonidas Schmidt Basic Information Time seen: Date & time 08/17/2021 13:57:00. History source: Patient. Arrival mode: Private vehicle. History limitation: None. History of Present Illness 21-year-old female presents here to the emergency department chief complaint of vaginal discharge. Patient states her last menstrual cycle ended around the of this month. States after that she developed yellow white-colored discharge following vaginal itching. States that the discharge does have an odor to it. She does note a history of bacterial vaginosis, states she is sexually active and has unprotected sex. States she would like STI testing today as well. Is not concerned for STI but wants to make sure. Denies any history of yeast infections denies any recent antibiotics. Denies any fever chills denies any pelvic pain abdominal pain. States dysuria which started today. No significant history of UTI. No chills. No recent sick contacts or travel. WALL ATTENDANT is Dr. Aguilera. No known medication allergies. No current medications. No other concerns at this time. Review of Systems Constitutional symptoms: No fever, no chills, no sweats, no weakness, no fatigue. Skin symptoms: No rash, no pruritus, no abrasions. Eye symptoms: Vision unchanged. ENMT symptoms: No ear pain, no sore throat, no nasal congestion, no sinus pain. Respiratory symptoms: No shortness of breath, no cough. Cardiovascular symptoms: No chest pain, no palpitations, no tachycardia, no syncope, no diaphoresis, no peripheral edema. Gastrointestinal symptoms: No abdominal pain, no nausea, no vomiting, no diarrhea, no constipation. Genitourinary symptoms: Vaginal discharge, no dysuria, no hematuria, no vaginal bleeding. Musculoskeletal symptoms: No back pain, no Muscle pain, no Joint pain. Neurologic symptoms: No headache, no dizziness, no altered level of consciousness, no numbness, no tingling, no weakness. Additional review of systems information: All other systems reviewed and otherwise negative. Health Status Allergies: Allergic Reactions (Selected) No Known Medication Allergies. Medications: (Selected) Inpatient Medications Ordered Flagyl: 500 mg = 2 tab(s), PO, Once Prescriptions Prescribed Flagyl 500 mg oral tablet: 500 mg = 1 tab(s), PO, q12hr, for 7 day(s), 14 tab(s), 0 Refill(s). Menstrual history: Last menstrual period: Date 08/09/2021. Past Medical/ Family/ Social History Social history: Social & Psychosocial Habits Alcohol 08/17/2021 Alcohol Use: Never Substance Abuse 08/17/2021 Substance use: Never Tobacco 08/17/2021 Smoking tobacco use: Black & Milds 2-3 per day Electronic Cigarette/Vaping 08/17/2021 Electronic Cigarette Use: Never . Physical Examination General: Alert, no acute distress. Skin: Warm, dry, intact, no pallor, no rash. Head: Normocephalic, atraumatic. Neck: Supple, no tenderness. Eye: Pupils are equal, round and reactive to light, extraocular movements are intact, normal conjunctiva. Ears, nose, mouth and throat: Oral mucosa moist. Cardiovascular: Regular rate and rhythm, No murmur, Normal peripheral perfusion, No edema, S1, S2, regular rhythm. No murmurs gallops or rubs.. Respiratory: Lungs are clear to auscultation, respirations are non-labored, breath sounds are equal, Symmetrical chest wall expansion, Lung sounds are clear bilaterally. No wheezing rhonchi or crackles on exam.. Gastrointestinal: Soft, Nontender, Non distended, Normal bowel sounds, No organomegaly, Bowel sounds are present x4 quadrants. Abdomen is soft, nontender, nondistended. No rigidity rebound or guarding on exam.. Genitourinary: No tenderness, normal external genitalia, no lesions, Normal external genitalia. No lesions or ulcerations. Vulva was erythematous and irritated. Yellow to white-colored discharge. No cervical motion tenderness.. Musculoskeletal: Normal ROM, normal strength, no tenderness, no swelling, no deformity. Neurological: Alert and oriented to person, place, time, and situation, No focal neurological deficit observed, normal sensory observed, normal motor observed, normal speech observed, normal coordination observed, Normal sensory, motor, speech, coordination is observed on exam of the patient for the patient's age.. Psychiatric: Cooperative, appropriate mood & affect, normal judgment, non-suicidal. Medical Decision Making Orders Launch Orders Laboratory: Urinalysis with Culture, if indicated Standard (Order): Urine, Stat collect, 08/17/2021 13:59 EST, Nurse collect Test Urine 1 (Order): Urine, Stat collect, 08/17/2021 13:59 EST, Nurse collect, Launch Orders Laboratory: Wet Prep (Order): Vaginal, 08/17/2021 14:24 EST, Stat collect, Nurse collect Gram Stain (Order): Micro Specimen, Vagina, 08/17/2021 14:24 EST, Stat collect, Nurse colle (more content not included)... [facility] ED Note-Nursingon 08-17-2021 ED Note-Nursing Patient arrives to ED room 4 via ambulation, gait is steady. Pt c/o vaginal itching and discharge, states it is yellowish and foul-smelling. She states it started a few days ago, just after her last menstrual period ended. She reports that she has been having unprotected sex with her current partner, states that she does not live with him, so she states that she cannot speak to what he may or may not be doing when she is not with him. Pt states that she has been having burning with urination for the past few days as well. Pt denies any other issues. [facility] ED Patient Summaryon 021 ED Patient Summary [facility] - Emergency Department [address] [place] [address] PATIENT DISCHARGE INSTRUCTIONS Patient Information Name: BEATRIS MACK Age: 21 Years Date of : 2000 Reason For Visit: Vaginal discharge; VAGINAL DISCHARGE/ITCHING Arrival Time: 08/17/2021 13:36:40 Primary Care Physician: Provider, None Attending Physician: Silver Levi MD Comment: Visit Diagnosis: Diagnoses This Visit Trichomonas vaginalis (TV) infection (A59.01) Vaginal discharge ([id number]) Prescription Information: If you have been given a prescription for narcotics, seek immediate medical attention if you have any difficulty breathing or any sudden status changes such as confusion and sleepiness. If you or anyone you know is experiencing suicidal thoughts, mental health, alcohol and/or drug addiction problems; contact the [facility] 13/04 Crisis Hotline -Text 1ZMST cv 380755. If you received any narcotics, sedation, or any other medication that causes drowsiness for the next 24 hours, unless otherwise directed: ? Do not drive a car. ? Do not operate machinery such as power tools, lawn mowers, drills, sewing machines, or stoves ? Avoid alcoholic beverages and drugs for allergies, nerves, or sleep ? Do not make important personal or business decisions or sign any legal documents With: Address: When: Follow up with primary care provider Within 3 to 5 days Comments: Please follow-up with your WALL ATTENDANT in 3 to 5 days. Contact their office on Thursday morning to schedule a follow-up appointment let them know that you were seen and evaluated in the emergency department in regards to vaginal disc charge and discomfort. He had a pelvic exam completed today which came back positive for trichomonas you are treated with Flagyl, antibiotic twice daily for 7 days. Continue to monitor symptoms they may want to recheck for resolution. Other testing such as gonorrhea and Chlamydia are both send outs. If you do not hear from us no news is good news if you require any antibiotic you will be notified. You may return here to the emergency department for any worsening or concerning symptoms. Medication Information: The exam and treatment you received today in the [facility] Emergency Department were for an urgent problem and are not intended as complete care. It is important for you to follow up with a doctor, nurse practitioner, or physician?s assistant professor of dietetics for ongoing care. If your symptoms become worse or you do not improve as expected and you are unable to reach your usual health care provider, you should return to the Emergency Department, we are available 24 hours a day. For those patients who have received Radiology results, the interpretation of your X-ray as given to you by our Emergency Department physician is only a preliminary report. The Radiologist will review your films and if there is a change in the diagnosis you will be notified by phone. Please make sure you have provided a working phone number so we can reach you if necessary. In the event that you had a lab culture while you were a patient in the Emergency Department, you will be notified by phone if there is a need to change your antibiotic. Please make sure you have provided a working phone number so we can reach you if necessary. [facility] Emergency Department has provided you with a complete list of medications post discharge. Please inform your group leader/provider of your visit and for further instruction on these medications. Any specific questions regarding your chronic medications and dosages should be discussed with your primary care physician(s) and/or pharmacist. New Medications [id number], [address] [place], [place] [id number], [phone] metroNIDAZOLE (Flagyl 500 mg oral tablet) 1 tab(s) Oral Every 12 hours scheduled time for 7 Days. Refills: 0. Visit Information Allergies: Substance Reaction Symptoms Type Comments No Known Medication Allergies Drug Vital Signs: Vitals and Measurements this Visit (last charted value for your 08/17/2021 visit) Vital Signs This Visit Temperature Oral: 36.7 DegC Peripheral Pulse Rate: 85 bpm Respiratory Rate: 18 br/min Systolic Blood Pressure: 145 mmHg Diastolic Blood Pressure: 94 mmHg SpO2: 98 % Oxygen Therapy: Room air Measurements This Visit Height/Length Dosin.180 cm Height/Length Estimated: 170.180 cm Weight Dosin.100 kg Weight Estimated: 82.100 kg Problems List: Problem Onset Comments No Problems found Patient Education Trichomoniasis Trichomoniasis is an STI (sexually transmitted infection) that can affect both women and men. In women, the outer area of the female genitalia (vulva) and the vagina are affected. In men, mainly the penis is affected, but the prostate and other reproductive organs can also be involved (more content not included)... [facility] Test Urine 1on U Preg Negative [facility] Comment on above: Performed By: #### 5 [id number] ####[facility] (DEFAULT)[address] [place] [address] U Preg Internal Control Pass [facility] Comment on above: Performed By: #### 5 [id number], [id number], [id number], [id number] ####[facility] (DEFAULT)[address] [place] [address] UA Lubxw4xq 08-17-[address] [facility] Comment on above: Order Comment: Urina lysis Microscopic order added on by [employer] Expert Rules system. Performed By: #### 5 [id number], [id number], [id number] ####[facility] (DEFAULT)[address] [place] [address] [address] Mucous 2+ [facility] Comment on above: Order Comment: Urina lysis Microscopic order added on by [employer] Expert Rules system. Performed By: #### 5 [id number], [id number], [id number] ####[facility] (DEFAULT)[address] [place] [address] UA RBC 3-5 [facility] Comment on above: Order Comment: Urina lysis Microscopic order added on by [employer] Expert Rules system. Performed By: #### 5 [id number], [id number], [id number], [id number] ####[facility] (DEFAULT)[address] [address] [facility] Comment on above: Order Comment: Urina lysis Microscopic order added on by [employer] Expert Rules system. Performed By: #### 5 [id number], [id number], [id number], [id number] ####[facility] (DEFAULT)[address] [place] [address] [address] [facility] Comment on above: Order Comment: Urina lysis Microscopic order added on by [employer] Expert Rules system. Performed By: #### 5 [id number], [id number], [id number], [id number] ####[facility] (DEFAULT)[address] [place] [address] [address]A WBC 25-30 [facility] Comment on above: Order Comment: Urina lysis Microscopic order added on by [employer] Expert Rules system. Performed By: #### 5 [id number], [id number], [id number], [id number] ####[facility] (DEFAULT)[address] [place] [address] UA w Culture if Ind Standard on 08-17-[address] [facility] Comment on above: Performed By: #### 5 [id number], [id number], [id number] ####[facility] (DEFAULT)[address] [place] [address] Color (U) Yellow [facility] Comment on above: Performed By: #### 5 [id number], [id number], [id number], [id number] ####[facility] (DEFAULT)[address] [place] [address] Culture? Indicated Invalid Interpretation Code [facility] Comment on above: Result Comment: Resu lt created by rule GL_MAGR_ADD_UA_CULT Result created by rule GL_MAGR_ADD_UA_CULT Result created by rule GL_MAGR_ADD_UA_CULT1 Performed By: #### 5 [id number], [id number], [id number] ####[facility] (DEFAULT)[address] [place] [address] Glucose (U) [Mass/Vol] Negative [facility] Comment on above: Performed By: #### 5 [id number], [id number], [id number] ####[facility] (DEFAULT)[address] [place] [address] Ketones Ql (U) Negative Normal [facility] Comment on above: Performed By: #### 5 [id number], [id number], [id number], [id number] ####[facility] (DEFAULT)[address] [place] [address]11 Micro? Indicated Invalid Interpretation Code [facility] Comment on above: Result Comment: Resu lt created by rule GL_MAGR_ADD_UA_MICRO Performed By: #### 5 [id number], [id number], [id number], [id number] ####[facility] (DEFAULT)[address] [place] [address]14 UA Bilirubin Negative Normal [facility] Comment on above: Performed By: #### 5 [id number], [id number], [id number], [id number] ####[facility] (DEFAULT)[address] [place] [address]252 UA Blood Negative Normal NEGATIVE [facility] Comment on above: Performed By: #### 5 [id number], [id number], [id number], [id number] ####[facility] (DEFAULT)[address] [place] [address] UA Clarity CLEAR Normal CLEAR [facility] Comment on above: Performed By: #### 5 [id number], [id number], [id number], [id number] ####[facility] (DEFAULT)[address] [place] [address]272 UA Leuk Est TRACE Abnormal NEGATIVE [facility] Comment on above: Performed By: #### 5 [id number], [id number], [id number], [id number] ####[facility] (DEFAULT)[address] [place] [address] UA Nitrite Negative Normal NEGATIVE [facility] Comment on above: Performed By: #### 5 [id number], [id number], [id number], [id number] ####[facility] (DEFAULT)[address] [place] [address] UA pH 6.0 Normal 5-8 [facility] Comment on above: Performed By: #### 5 [id number], [id number], [id number], [id number] ####[facility] (DEFAULT)[address] [place] [address] UA Protein Negative Normal NEGATIVE [facility] Comment on above: Performed By: #### 5 [id number], [id number], [id number], [id number] ####[facility] (DEFAULT)[address] [place] [address] UA Spec Grav >=1.030 Normal 1.001-1.035 [facility] Comment on above: Performed By: #### 5 [id number], [id number], [id number], [id number] ####[facility] (DEFAULT)[address] [place] [place] [address] UA Urobilinogen 0.2 mg/dL Normal 0.2-1.0 [facility] Comment on above: Performed By: #### 5 [id number], [id number], [id number], [id number] ####[facility] (DEFAULT)[address] [place] [address] Urine Source Clean Catch Normal [facility] Comment on above: Performed By: #### 5 [id number], [id number], [id number], [id number] ####[facility] (DEFAULT)[address] [place] [address] [place].on 08-17-2021 [place]. Negative Normal [facility] Comment on above: Performed By: #### 1 [id number] #### [facility] (DEFAULT) [address] [place] [address] RAD - MISCon 06-19-2020 RAD - MISC [id number] 8#1.00CD:127 Normal [facility] Insurance Correspondence Off iceon 06-07-2020 Insurance Correspondence Office [id number] 9D#1.00CD:127 Normal [facility] Consent for Treatmenton 05-22 Consent for Treatment [id number]#1.00CD:127 [facility] Consultation Noteon 05-25-20 20 Consultation Note [id number] DD#1.00CD:127 [facility] Operative Reporton 0 Operative Report [id number] 84#1.00CD:127 [facility] Ambulatory Clinical Summaryo n 03-12-2020 Ambulatory Clinical Summary {[id number]}CD:[id number] 8 [facility] Coding Summary.on 11-14-2019 Coding Summary. CODING DATE: 11/14/2019 [facility] STATUS: Left Against Medical Advice PAYOR: Teofilo ADMIT DX: REASON FOR VISIT DX: O99.89 Other specified diseases and conditions complicating , childbirth and the puerperium M54.5 Low back pain R51 Headache FINAL DX: PRINCIPAL: Z53.21 Procedure and treatment not carried out due to patient leaving prior to being seen by health care provider SECONDARY: PYMT PROC APC STAT DESCRIPTION DOCTOR NAME DATE NOTE: The code number assigned matches the documented diagnosis and / or procedure in the patient's chart. However, the narrative phrase printed from the coding software may appear abbreviated, or result in slightly different terminology. Coded By: Belinda Person Date Saved: 11/14/2019 08:46 am [facility] Coding Summary. CODING DATE: 11/14/2019 [facility] STATUS: Left Without Being Seen PAYOR: Teofilo ADMIT DX: REASON FOR VISIT DX: O99.89 Other specified diseases and conditions complicating , childbirth and the puerperium M54.5 Low back pain R51 Headache FINAL DX: PRINCIPAL: Z53.21 Procedure and treatment not carried out due to patient leaving prior to being seen by health care provider SECONDARY: PYMT PROC APC STAT DESCRIPTION DOCTOR NAME DATE NOTE: The code number assigned matches the documented diagnosis and / or procedure in the patient's chart. However, the narrative phrase printed from the coding software may appear abbreviated, or result in slightly different terminology. Coded By: Belinda Person Date Saved: 11/14/2019 08:46 am Normal [facility] ED Clinical Summaryon 2019 ED Clinical Summary [address] [address] ED Clinical Summary Person Information Name: BEATRIS MACK [place] Age: 19 Years : 2000 Sex: Female Language: Indonesian PCP: Jeanine Gimenez DO Marital Status: Single Phone: [phone] Visit Id: Visit Reason: Abdominal pain - ; Back pain; low back pain 14 weeks preg Speciality: Acuity: 3 Enc Type: Emergency Med Service: Emergency Arrival: 11/12/2019 19:17:38 Discharge: 11/12/2019 21:18:26 LOS: 000 02:01 Checkin: 11/12/2019 19:17:38 Checkout: 11/12/2019 21:18:26 Dispo Type: Left Without Being Seen EVENTS: Event Name Event Status Request Date/Time Start Date/Time Complete Date/Time Arrive Complete 11/12/2019 19:17:38 11/12/2019 19:17:38 11/12/2019 19:17:38 Document Home Meds Request 11/12/2019 19:17:38 Triage Complete 11/12/2019 19:17:38 11/12/2019 19:26:31 11/12/2019 19:26:31 Pending Labs Complete 11/12/2019 19:56:49 11/12/2019 20:46:15 Lab Complete 11/12/2019 19:56:49 11/12/2019 20:46:15 Urine Collect Complete 11/12/2019 19:56:49 11/12/2019 20:46:15 Registration Complete 11/12/2019 20:03:26 11/12/2019 20:03:26 11/12/2019 20:03:26 Reg Complete Request 11/12/2019 20:03:26 Reg Bed Request Complete 11/12/2019 20:03:26 11/12/2019 20:03:26 11/12/2019 20:03:26 Bed Assign Complete 11/12/2019 20:08:04 11/12/2019 20:08:04 11/12/2019 20:08:04 Dr Exam Complete 11/12/2019 20:08:04 11/12/2019 21:15:55 11/12/2019 21:15:55 RN Exam Complete 11/12/2019 20:08:04 11/12/2019 20:16:35 11/12/2019 20:16:35 Registration Request 11/12/2019 21:15:55 Discharge Complete 11/12/2019 21:18:57 11/12/2019 21:18:57 11/12/2019 21:18:57 Transfer Complete 11/12/2019 21:18:58 11/12/2019 21:18:58 11/12/2019 21:18:58 ADDRESS: [facility] [place] [id number] [facility] DOC NOTES: MEDICAL INFORMATION: Prescriptions Given: PATIENT EDUCATION INFORMATION: Instructions: Follow up: DIAGNOSIS: Normal [facility] ED Patient Education Noteon 11-12-2019 ED Patient Education Note Normal [facility] ED Patient Summaryon 020 ED Patient Summary [place] [id number] Patient Discharge Instructions Person Information Name: BEATRIS MACK Age: 19 Years Arrival Date: 11/12/2019 19:17:38 Discharge Diagnosis: Primary Care Physician: Jeanine Gimenez DO Provider Information Primary Provider: Christian Jimenez MD Advanced Data Transcriber:None The exam and treatment you received in the Emergency Department were for an urgent problem and are not intended as complete care. It is important that you follow up with a doctor, nurse practitioner, or physician?s assistant professor of dietetics for ongoing care. If your symptoms become worse or you do not improve as expected and you are unable to reach your usual health care provider, you should return to the Emergency Department. We are available 24 hours a day. BEATRIS MACK has been given the following list of patient education materials, prescriptions and follow-up instructions: Follow-up Instructions: In the event that this physician does not participate in your insurance network, please consult with your insurance company to find a nearby participating provider. Patient Education Materials: A MESSAGE TO ALL PATIENTS REGARDING OPIOIDS PRESCRIPTION OPIOIDS: WHAT YOU NEED TO KNOW Prescription opioids can be used to help relieve kuyllsns-au-hsfuuk pain and are often prescribed following a surgery or injury, or for certain health conditions. These medications can be an important part of the treatment but also come with serious risks. It is important to work with your healthcare provider to make sure you are getting the safest, most effective care. WHAT ARE THE RISKS AND SIDE EFFECTS OF OPIOID USE? Prescription opioids carry serious risks of addiction and overdose, especially with prolonged use. An opioid overdose, often marked by slowed breathing, can cause sudden . The use of prescription opioids can have a number of side effects as well, even when taken as directed: ? Tolerance?meaning you might need to take more of the medication for the same pain relief ? Physical dependence?meaning you have symptoms of withdrawal when a medication is stopped ? Increased sensitivity to pain ? Constipation ? Nausea, vomiting, and dry mouth ? Sleepiness and dizziness ? Confusion ? Depression ? Low levels of testosterone that can result in lower sex drive, energy, and strength ? Itching and sweating RISKS ARE GREATER WITH: ? History of drug misuse, substance use disorder, or overdose ? Mental health conditions (such as depression or anxiety) ? Sleep apnea ? Older age (65 years and older) ? Avoid alcohol while taking prescription opioids. Also, unless specifically advised by your health care provider, medications to avoid include: ? Benzodiazepines (such as Xanax or Valium) ? Muscle relaxants (such as Soma or Flexeril) ? Hypnotics (such as Ambien or Lunesta) ? Other prescription opioids KNOW YOUR OPTIONS Talk to your health care provider about ways to manage your pain that don?t involve prescription opioids. Some of these options may actually work better and have fewer risks and side effects. Options may include: ? Pain relievers such as acetaminophen, ibuprofen, and naproxen ? Some medication that are also used for depression or seizures ? Physical therapy and exercise ? Cognitive behavioral therapy, a psychological, goal-directed approach, in which patients learn how to modify physical, behavioral, and emotional triggers of pain and stress. IF YOU ARE PRESCRIBED OPIOIDS FOR PAIN: ? Never take opioids in greater amounts or more often than prescribed. ? Follow up with your primary health care provider. o Work together to create a plan on how to manage your pain. o Talk about ways to help manage your pain that don?t involve prescription opioids. o Talk about any and all concerns and side effects. ? Help prevent misuse and abuse o Never sell or share prescription opioids. o Never use another person?s prescription opioids. ? Store prescription opioids in a secure place and out of reach of others (this may include visitors, children, friends, and family). ? Safely dispose of unused prescription opioids: Find your community drug take-back program or your pharmacy mail-back program, or flush them down the toilet, following guidance from the Food and Drug Administration (www.fda.gov/Drugs/ ResourcesForYou). ? Visit www.cdc.gov/drugove rdose to learn about the risks of opioids abuse and overdose. ? If you believe you may be struggling with addiction, tell your health landcare facilitator and ask for guidance or call [facility]?S National Helpline at 8-180-261-NYXP. v Source: US Department of Health and Human Services/Center for Disease Control & Prevention [facility] Medications Given: Medication Dose Route No medications found. Medication Information: Comment: Pharmacy Information: Thank you for choosing [facility] Patient Education Materials: FREDERICK Stein HAYLEE T , have received the following patient education materials/instructi ons and have verbalized understanding: Patient Education Materials: Follow-up Instructions: Patient Signature Date Clinician/Nurse Signature Date 11/12/2019 21:18:59 Normal [facility] Progress Note-Nurseon 2019 Progress Note-Nurse pt left before dr. jimenez was in for exam Normal [facility] UA With Cult Reflexon 2019 Bacteria LM Ql (Urine sed) 1+ /HPF Abnormal Trace [facility] Comment on above: Performed By: #### 1 [id number] ####[facility] [address] [place] [address] Bilirubin Ql (U) Negative Normal Negative [facility] Comment on above: Performed By: #### 1 [id number] ####[facility] [address] [place] [address] Clarity (U) CLEAR Normal Clear [facility] Comment on above: Performed By: #### 1 [id number] ####[facility] [address] [place] [address] Color (U) YELLOW Normal Yellow [facility] Comment on above: Performed By: #### 1 [id number] ####[facility] [address] [place] [address] Crystals LM Ql (Urine sed) Present Normal [facility] Comment on above: Performed By: #### 1 [id number] ####[facility] [address] [place] [address] Epithelial cells.squamous LM.HPF (Urine sed) [#/Area] 3-4 Normal 0-2 [facility] Comment on above: Performed By: #### 1 [id number] ####[facility] [address] [place] [address] Glucose Test strip (U) [Mass/Vol] Negative Normal Negative [facility] Comment on above: Performed By: #### 1 [id number] ####[facility] [address] [place] [address] Hemoglobin Ql (U) Negative Normal Negative [facility] Comment on above: Performed By: #### 1 [id number] ####[facility] [address] [place] [address] Ketones (U) [Mass/Vol] Negative Normal Negative [facility] Comment on above: Performed By: #### 1 [id number] ####[facility] [address] [place] [address] [place].plasma/[place].RB C (Bld) [Mass ratio] 0-3 Normal 0-3 [facility] Comment on above: Performed By: #### 1 [id number] ####[address] [address] Mucus Ql (Urine sed) TRACE Normal [facility] Comment on above: Performed By: #### 1 [id number] ####[address] [address] Nitrite Ql (U) Negative Normal Negative [facility] Comment on above: Performed By: #### 1 [id number] ####[address] [address] pH (U) 6.0 [pH] 5.0-9.0 [facility] Comment on above: Performed By: #### 1 [id number] ####[address] [address] Protein (U) [Mass/Vol] Negative Normal Negative [facility] Comment on above: Performed By: #### 1 [id number] ####[address] [address] Specific gravity (U) [Rel density] 1.025 1.005-1.030 [facility] Comment on above: Performed By: #### 1 [id number] ####[facility] [address] [place] [address] UA Spec Desc Clean Catch Normal [facility] Comment on above: Performed By: #### 1 [id number] ####[place] [address] [place] [address] Urobilinogen Qn (U) 0.2 {Joy'U}/dL Normal 0.0-1.0 [facility] Comment on above: Performed By: #### 1 [id number] ####[facility] [address] [place] [address] WBC Auto Ql (U) Negative Normal Negative [facility] Comment on above: Performed By: #### 1 [id number] ####[facility] [address] [place] [address] WBC LM.HPF (Urine sed) [#/Area] 0-5 Normal 0-5 [facility] Comment on above: Performed By: #### 1 [id number] ####[facility] [address] [place] [address] Automated erythrocytes count in urine sediment (number/area)on 11-10-2019 RBC Auto (Urine sed) [#/Area] 3-4 [HPF] [facility] Automated leukocytes count i n urine sediment (number/area)on 11-10-2019 WBC Auto (Urine sed) [#/Area] 20-49 [HPF] [facility] Automated urine color determ inationon 11-10-2019 Color (U) Yellow Yellow [facility] Automated urine hyaline cast s count (number/volume)on 11-10-2019 Hyaline casts Auto (U) [#/Vol] Rare [LPF] [facility] Casts typing in urine sedime nt by light microscopyon 11-10-2019 Casts LM Nom (Urine sed) None seen [LPF] None S een [facility] Specific gravity of Urine by Automated test stripon 11-10-2019 Specific gravity (U) [Rel density] 1.017 1.001-1.030 [facility] Squamous epithelial cells de tection in urine sediment by light microscopyon 11-10-2019 Epithelial cells.squamous LM Ql (Urine sed) 5-9 [HPF] [facility] Urine bacteria detection by automated methodon 11-10-2019 Bacteria Auto Ql (U) 2+ None Seen [facility] Urine clarity by refractomet ry automatedon 11-10-2019 Clarity Refractometry automated (U) Turbid Clear [facility] Urine culture routineon 10-23 Bacteria identified Cx Nom (U) 2 Days [facility] Urine glucose measurement by automated test strip (mass/volume)on 11-10-2019 Glucose Auto test strip (U) [Mass/Vol] Normal mg/dL Normal [facility] Urine hemoglobin detection b y automated test stripon 11-10-2019 Hemoglobin Auto test strip Ql (U) Negative Negative [facility] Urine ketones measurement by automated test strip (mass/volume)on 11-10-2019 Ketones (U) [Mass/Vol] Negative Negative [facility] Urine leukocyte esterase det ection by automated test stripon 11-10-2019 Leukocyte esterase Auto test strip Ql (U) 3+ Negative [facility] Urine nitrite detection by t est stripon 11-10-2019 Nitrite Ql (U) Negative Negative [facility] Urine pH measurement by auto mated test stripon 11-10-2019 pH (U) 6.5 [pH] 5.0-9.0 [facility] Urine protein measurement by automated test strip (mass/volume)on 11-10-2019 Protein (U) [Mass/Vol] Negative Negative [facility] Urine total bilirubin detect ion by test stripon 11-10-2019 Bilirubin Ql (U) Negative Negative [facility] Urine urobilinogen measureme nt by automated test strip (mass/volume)on 11-10-2019 Urobilinogen (U) [Mass/Vol] Normal mg/dL Normal [facility] Automated erythrocytes count in urine sediment (number/area)on 10-19-2019 RBC Auto (Urine sed) [#/Area] 1-2 [HPF] [facility] Automated leukocytes count i n urine sediment (number/area)on 10-19-2019 WBC Auto (Urine sed) [#/Area] 10-19 [HPF] [facility] Automated urine color determ inationon 10-19-2019 Color (U) Yellow Yellow [facility] Chlamydia trachomatis rRNA d etection by probe and target amplification methodon 10-19-2019 C. trachomatis rRNA LEV+probe Ql (Unsp spec) Negative Negative [facility] Comment on above: Performed at: =[facility] [address] [id number] Director: Mavis Sow MD, Phone: [phone] Serum or plasma beta choriog onadotropin measurement (units/volume)on 10-19-2019 HCG.beta subunit Qn 711666.00 m[IU]/mL [facility] Comment on above: Approximate Approxim ate hCG Gestational Age Range (mIU/ml) (weeks)0.2-1 5-50 1-2 50-500 2-3 100-5,000 3-4 500-10,000 4-5 1,000-50,000 5-6 10,000-100,000 6-8 15,000-200,000 8-12 10,000-100,000 Specific gravity of Urine by Automated test stripon 10-19-2019 Specific gravity (U) [Rel density] 1.021 1.001-1.030 [facility] Squamous epithelial cells de tection in urine sediment by light microscopyon 10-19-2019 Epithelial cells.squamous LM Ql (Urine sed) 10-19 [HPF] [facility] Urinalysison 10-19-2019 Hyaline casts LM Ql (Urine sed) 0-8 [LPF] [facility] Urine bacteria detection by automated methodon 10-19-2019 Bacteria Auto Ql (U) 1+ None Seen [facility] Urine clarity by refractomet ry automatedon 10-19-2019 Clarity Refractometry automated (U) Cloudy Clear [facility] Urine culture routineon 09-22 Bacteria identified Cx Nom (U) 2 Days [facility] Urine glucose measurement by automated test strip (mass/volume)on 10-19-2019 Glucose Auto test strip (U) [Mass/Vol] Normal mg/dL Normal [facility] Urine hemoglobin detection b y automated test stripon 10-19-2019 Hemoglobin Auto test strip Ql (U) Trace Negative [facility] Urine ketones measurement by automated test strip (mass/volume)on 10-19-2019 Ketones (U) [Mass/Vol] [facility] U[facility] leukocyte esterase det ection by automated test stripon 10-19-2019 Leukocyte esterase Auto test strip Ql (U) 1+ Negative [facility] Urine nitrite detection by t est stripon 10-19-2019 Nitrite Ql (U) Negative Negative [facility] Urine pH measurement by auto mated test stripon 10-19-2019 pH (U) 5.5 [pH] 5.0-9.0 [facility] Urine protein measurement by automated test strip (mass/volume)on 10-19-2019 Protein (U) [Mass/Vol] [facility] Urine total bilirubin detect ion by test stripon 10-19-2019 Bilirubin Ql (U) Negative Negative [facility] Urine urobilinogen measureme nt by automated test strip (mass/volume)on 10-19-2019 Urobilinogen (U) [Mass/Vol] Normal mg/dL Normal [facility] Automated erythrocytes count in urine sediment (number/area)on 10-02-2019 RBC Auto (Urine sed) [#/Area] 0-1 [HPF] [facility] Automated leukocytes count i n urine sediment (number/area)on 10-02-2019 WBC Auto (Urine sed) [#/Area] 20-49 [HPF] [facility] Automated urine color determ inationon 10-02-2019 Color (U) Yellow Yellow [facility] Automated urine hyaline cast s count (number/volume)on 10-02-2019 Hyaline casts Auto (U) [#/Vol] 0-1 [LPF] [facility] Casts typing in urine sedime nt by light microscopyon 10-02-2019 Casts LM Nom (Urine sed) None seen [LPF] None S een [facility] Chlamydia trachomatis rRNA d etection by probe and target amplification methodon 10-02-2019 C. trachomatis rRNA LEV+probe Ql (Unsp spec) Negative Negative [facility] Comment on above: Performed at: =G - [address] [id number] Director: Mavis Sow MD, Phone: [phone] Specific gravity of Urine by Automated test stripon 10-02-2019 Specific gravity (U) [Rel density] 1.020 1.001-1.030 [facility] Squamous epithelial cells de tection in urine sediment by light microscopyon 10-02-2019 Epithelial cells.squamous LM Ql (Urine sed) 10-19 [HPF] [facility] Urine bacteria detection by automated methodon 10-02-2019 Bacteria Auto Ql (U) 2+ None Seen [facility] Urine clarity by refractomet ry automatedon 10-02-2019 Clarity Refractometry automated (U) Cloudy Clear [facility] Urine culture routineon 09-21 Bacteria identified Cx Nom (U) 2 Days [facility] Urine glucose measurement by automated test strip (mass/volume)on 10-02-2019 Glucose Auto test strip (U) [Mass/Vol] Normal mg/dL Normal [facility] Urine hemoglobin detection b y automated test stripon 10-02-2019 Hemoglobin Auto test strip Ql (U) Negative Negative [facility] Urine ketones measurement by automated test strip (mass/volume)on 10-02-2019 Ketones (U) [Mass/Vol] Negative Negative [facility] Urine leukocyte esterase det ection by automated test stripon 10-02-2019 Leukocyte esterase Auto test strip Ql (U) 2+ Negative [facility] Urine nitrite detection by t est stripon 10-02-2019 Nitrite Ql (U) Negative Negative [facility] Urine pH measurement by auto mated test stripon 10-02-2019 pH (U) 7.0 [pH] 5.0-9.0 [facility] Urine protein measurement by automated test strip (mass/volume)on 10-02-2019 Protein (U) [Mass/Vol] Negative Negative [facility] Urine sediment renal epithel ial cell count by microscopy (number/high power field)on 10-02-2019 Epithelial cells.renal LM.HPF (Urine sed) [#/Area] 1-2 [HPF] [facility] Urine total bilirubin detect ion by test stripon 10-02-2019 Bilirubin Ql (U) Negative Negative [facility] Urine urobilinogen measureme nt by automated test strip (mass/volume)on 10-02-2019 Urobilinogen (U) [Mass/Vol] Normal mg/dL Normal [facility] Automated basophil %on 09-06 Basophils/100 WBC (Bld) 0.1 % [facility] Automated basophil counton 11-07-2018 Basophils (Bld) [#/Vol] 0.0 10*3/uL 0.0-0.2 [facility] Automated blood lymphocyte c ount (number/volume)on 09-06-2019 Lymphocytes (Bld) [#/Vol] 0.4 10*3/uL 1.00-4.8 [facility] Automated blood lymphocyte c ount as percentage of total leukocyteson 09-06-2019 Lymphocytes/100 WBC (Bld) 5.3 % [facility] Automated blood monocyte cou nton 09-06-2019 Monocytes (Bld) [#/Vol] 1.2 10*3/uL 0.0-0.8 [facility] Automated blood platelet cou nt (count/volume)on 09-06-2019 Platelets (Bld) [#/Vol] 284 10*3/uL 150-450 [facility] Automated blood platelet mckenna n volume measurementon 09-06-2019 Platelet mean volume (Bld) [Entitic vol] 8.4 fL 6.3-10.7 [facility] Automated eosinophil %on Eosinophils/100 WBC (Bld) 0.3 % [facility] Automated eosinophil counton 09-06-2019 Eosinophils (Bld) [#/Vol] 0.0 10*3/uL 0.0-0.45 [facility] Automated erythrocyte distri bution width ratioon 09-06-2019 Erythrocyte distribution width (RBC) [Ratio] 16.9 % 11.9-15.3 [facility] Automated erythrocyte mean c orpuscular hemoglobin (mass per erythrocyte)on 09-06-2019 MCH (RBC) [Entitic mass] 29.9 pg 24.7-34.3 [facility] Automated erythrocyte mean c orpuscular hemoglobin concentration measurement (mass/volon 09-06-2019 MCHC (RBC) [Mass/Vol] 33.4 g/dL 32.0-35.0 Fir [facility] Automated erythrocyte mean c orpuscular volumeon 09-06-2019 MCV (RBC) [Entitic vol] 89.6 fL 80-100 F [facility] Automated erythrocytes count in urine sediment (number/area)on 09-06-2019 RBC Auto (Urine sed) [#/Area] 10-19 [HPF] [facility] Automated leukocytes count i n urine sediment (number/area)on 09-06-2019 WBC Auto (Urine sed) [#/Area] 5-9 [HPF] [facility] Automated monocyte %on 09-06 Monocytes/100 WBC (Bld) 15.4 % F [facility] Automated neutrophil %on Neutrophils/100 WBC (Bld) 78.9 % [facility] Automated urine color determ inationon 09-06-2019 Color (U) Yellow Yellow [facility] Blood erythrocytes automated count (number/volume)on 09-06-2019 RBC (Bld) [#/Vol] 4.36 10*6/uL 3.60-5.00 [facility] Blood hemoglobin measurement (mass/volume)on 09-06-2019 Hemoglobin (Bld) [Mass/Vol] 13.0 g/dL 11.8-15.4 [facility] Blood leukocytes automated c ount (number/volume)on 09-06-2019 WBC (Bld) [#/Vol] 8.0 10*3/uL 3.8-11.6 [facility] Blood neutrophil count by au tomated method (number/volume)on 09-06-2019 Neutrophils (Bld) [#/Vol] 6.3 10*3/uL 1.8-7.7 [facility] Hematocrit [Volume Fraction] of Blood by Automated counton 09-06-2019 Hematocrit (Bld) [Volume fraction] 39.1 % 34.0-46.4 [facility] Otheron 09-06-2019 Nucleated RBC/100 WBC (Bld) [Ratio] 0.0 % 0-0.5 [facility] Serum or plasma beta choriog onadotropin measurement (units/volume)on 09-06-2019 HCG.beta subunit Qn 4195.00 m[IU]/mL [facility] Comment on above: Approximate Approxim ate hCG Gestational Age Range (mIU/ml) (weeks)0.2-1 5-50 1-2 50-500 2-3 100-5,000 3-4 500-10,000 4-5 1,000-50,000 5-6 10,000-100,000 6-8 15,000-200,000 8-12 10,000-100,000 Specific gravity of Urine by Automated test stripon 09-06-2019 Specific gravity (U) [Rel density] 1.015 1.001-1.030 [facility] Squamous epithelial cells de tection in urine sediment by light microscopyon 09-06-2019 Epithelial cells.squamous LM Ql (Urine sed) 10-19 [HPF] [facility] Urinalysison 09-06-2019 Hyaline casts LM Ql (Urine sed) 0-8 [LPF] [facility] Urine bacteria detection by automated methodon 09-06-2019 Bacteria Auto Ql (U) 1+ None Seen [facility] Urine clarity by refractomet ry automatedon 09-06-2019 Clarity Refractometry automated (U) Clear Clear [facility] Urine culture routineon 08-21 Bacteria identified Cx Nom (U) Strep. agalactiae Grp B [facility] Urine glucose measurement by automated test strip (mass/volume)on 09-06-2019 Glucose Auto test strip (U) [Mass/Vol] Normal mg/dL Normal [facility] Urine hemoglobin detection b y automated test stripon 09-06-2019 Hemoglobin Auto test strip Ql (U) Negative Negative [facility] Urine human chorionic gonado tropin (hCG) detection by immunoassayon 09-06-2019 HCG ( test) Ql (U) Positive [facility] Urine ketones measurement by automated test strip (mass/volume)on 09-06-2019 Ketones (U) [Mass/Vol] 1+ Negative [facility] Urine leukocyte esterase det ection by automated test stripon 09-06-2019 Leukocyte esterase Auto test strip Ql (U) 1+ Negative [facility] Urine nitrite detection by t est stripon 09-06-2019 Nitrite Ql (U) Negative Negative [facility] Urine pH measurement by auto mated test stripon 09-06-2019 pH (U) 7.0 [pH] 5.0-9.0 [facility] Urine protein measurement by automated test strip (mass/volume)on 09-06-2019 Protein (U) [Mass/Vol] Negative Negative [facility] Urine total bilirubin detect ion by test stripon 09-06-2019 Bilirubin Ql (U) Negative Negative [facility] Urine urobilinogen measureme nt by automated test strip (mass/volume)on 09-06-2019 Urobilinogen (U) [Mass/Vol] Normal mg/dL Normal [facility] C Cervicalon 08-03-2019 Cervical Culture Microbiology PROCEDURE: Cervical Culture [R1] SOURCE: Cerv BODY SITE: COLLECTED DATE/TIME: 08/01/2019 11:52 EST RECEIVED DATE/TIME: 08/01/2019 12:05 EST START DATE/TIME: 08/01/2019 12:05 EST FREE TEXT SOURCE: Dorie LOVE, Agusto Oshea PA-C, Agusto FINAL REPORTS Final Report [] Verified Date/Time: 08/03/2019 14:05 EST Scant growth of Escherichia coli 2+ Batool albicans Presumptive 1+ Normal vaginal migue isolated STAINS Wet Prep Report [] Verified Date/Time: 08/01/2019 12:23 EST Clue cells present No Trichomonas observed. No yeast seen SUSCEPTIBILITY RESULTS LEGEND: S=Susceptible, N/R=Not Reported, Blank=Data not available, or drug not advisable or tested, I=Intermediate, ESBL=Extended spectrum beta-lactamase, R=Resistant, TFG=Thymidine-depen dent strain, BRITTNEY=Beta-lactamase positive, JOSE=mcg/m;(mg/L), S*=Predicted susceptible interp, R*=Predicted resistant interp EC Antibiotic JOSE Dilutn JOSE Interp Amikacin <=16 S Amoxicillin/ <=8/4 S Clavulanate Ampicillin >16 R Ampicillin/ 16/8 I Sulbactam Cefazolin <=8 S Cefepime <=4 S Cefotaxime <=2 S Ceftazidime <=1 S Ceftriaxone <=8 S Cefuroxime <=4 S Ciprofloxacin <=1 S Ertapenem <=2 S Gentamicin <=4 S Imipenem <=1 S Levofloxacin <=2 S Nitrofurantoin <=32 Piperacillin/ <=16 S Tazobactam Tetracycline <=4 S Tobramycin <=4 S Trimethoprim/ <=2/38 S Sulfa Performing Locations R1: This test was performed at: [facility], [address] [address], [id number] , [facility] Comment on above: Performed By: #### [id number] ####[facility] [id number] [place] [address] Coding Summary.on 08-03-2019 Coding Summary. CODING DATE: 08/03/2019 FINAL [facility] STATUS: Home (Routine DC) PAYOR: Teofilo ADMIT DX: REASON FOR VISIT DX: Z20.2 Contact with and (suspected) exposure to infections with a predominantly sexual mode of transmission FINAL DX: PRINCIPAL: Z20.2 Contact with and (suspected) exposure to infections with a predominantly sexual mode of transmission SECONDARY: F17.210 Nicotine dependence, cigarettes, uncomplicated PROCEDURES DOCTOR NAME DATE NOTE: The code number assigned matches the documented diagnosis and / or procedure in the patient's chart. However, the narrative phrase printed from the coding software may appear abbreviated, or result in slightly different terminology. Coded By: Belinda Person Date Saved: 08/03/2019 05:45 am [facility] Coding Summary.on 08-02-2019 Coding Summary. CODING DATE: 08/02/2019 FINAL [facility] STATUS: Home (Routine DC) PAYOR: Teofilo ADMIT DX: REASON FOR VISIT DX: N89.8 Other specified noninflammatory disorders of vagina R10.2 Pelvic and perineal pain FINAL DX: PRINCIPAL: N72 Inflammatory disease of cervix uteri SECONDARY: Z20.2 Contact with and (suspected) exposure to infections with a predominantly sexual mode of transmission F17.210 Nicotine dependence, cigarettes, uncomplicated PROCEDURES DOCTOR NAME DATE NOTE: The code number assigned matches the documented diagnosis and / or procedure in the patient's chart. However, the narrative phrase printed from the coding software may appear abbreviated, or result in slightly different terminology. Coded By: Belinda Person Date Saved: 08/02/2019 08:55 am Normal [facility] ED Clinical Summaryon 2018 ED Clinical Summary [address] [address] ED Clinical Summary Person Information Name: BEATRIS MACK [place] Age: 19 Years : 2000 12:00 AM Sex: Female Language: Indonesian PCP: Jeanine Gimenez DO Marital Status: Single Phone: [phone] Visit Id: Visit Reason: STD exposure; VAGINAL DISCHARGE & BURNING URINATION Speciality: Acuity: 4 Enc Type: Emergency Med Service: Emergency Arrival: 08/02/2019 1:44 PM Discharge: 08/02/2019 2:50 PM LOS: 000 01:06 Checkin: 08/02/2019 1:44 PM Checkout: 08/02/2019 2:50 PM Dispo Type: Home (Routine DC) EVENTS: Event Name Event Status Request Date/Time Start Date/Time Complete Date/Time Arrive Complete 08/02/2019 1:44 PM 08/02/2019 1:44 PM 08/02/2019 1:44 PM Document Home Meds Request 08/02/2019 1:44 PM Triage Complete 08/02/2019 1:44 PM 08/02/2019 2:00 PM 08/02/2019 2:00 PM Pending Labs Cancel 08/02/2019 1:48 PM 08/02/2019 2:03 PM Urine Collect Cancel 08/02/2019 1:48 PM 08/02/2019 2:03 PM Lab Cancel 08/02/2019 1:48 PM 08/02/2019 2:03 PM Bed Assign Complete 08/02/2019 2:01 PM 08/02/2019 2:01 PM 08/02/2019 2:[address] Exam Complete 08/02/2019 2:01 PM 08/02/2019 2:03 PM 08/02/2019 2:03 PM RN Exam Complete 08/02/2019 2:01 PM 08/02/2019 2:09 PM 08/02/2019 2:09 PM Registration Complete 08/02/2019 2:03 PM 08/02/2019 2:30 PM 08/02/2019 2:[address] Exam Complete 08/02/2019 2:04 PM 08/02/2019 2:04 PM 08/02/2019 2:[address] Exam Complete 08/02/2019 2:04 PM 08/02/2019 2:04 PM 08/02/2019 2:04 PM Discharge Complete 08/02/2019 2:28 PM 08/02/2019 2:51 PM 08/02/2019 2:51 PM Reg Complete Request 08/02/2019 2:30 PM Reg Bed Request Complete 08/02/2019 2:30 PM 08/02/2019 2:30 PM 08/02/2019 2:30 PM Transfer Complete 08/02/2019 2:51 PM 08/02/2019 2:51 PM 08/02/2019 2:51 PM ADDRESS: [address] [place] [phone] PHYS DOC NOTES: MEDICAL INFORMATION: Prescriptions Given: PATIENT EDUCATION INFORMATION: Instructions: Sexually Transmitted Disease Follow up: With: Address: When: Jeanine Gimenez [address], [address], [facility] [address] [place] [address] Business (1) In 3 days 08/05/2019 DIAGNOSIS: STD exposure Normal [facility] ED Note-Physicianon 08-02-20 ED Note-Physician Basic Information Time Seen: Agusto Oshea PA-C 08/02/2019 14:04 Chief Complaint seen here yesterday and given IM atb and oral atb for STD. states she got drunk and had sex with the same moustapha again last night just wants to be checked again History of Present Illness 19-year-old female comes to the ED with concerns for STD exposure. I saw this patient in the ED yesterday. She was seen after having a known exposure to trichomonas. She did have pelvic examination performed and was treated empirically with Flagyl, ceftriaxone, azithromycin and Diflucan. The results of her cervical swabs are still pending. Patient states she had unprotected sexual intercourse with the same individual yesterday, and is concerned she may have been reinfected. She continues to have some vaginal discharge. No fever, chills, nausea, vomiting. No abdominal pains. Denies concerns of reporting or control. Review of Systems A 10 point review of systems is negative except as noted above. Medical and Surgical History: Reviewed and noted Social history: Lives at home Tobacco: Smoker Physical Exam Vitals & Measurements T: 36.8 ?C (Oral) HR: 107(Peripheral) RR: 16 BP: 122/77 SpO2: 97% HT: 170 cm WT: 69 kg BMI: 23.88 Nurses notes and vital signs reviewed and patient is not hypoxic. General: The patient appears well, resting comfortably. Skin: Warm, dry. Head: Atraumatic. Neck: No JVD. Eye: Normal conjunctiva. Ears, Nose, Mouth, and Throat: Moist mucous membranes. Cardiovascular: Strong distal pulses. Chest wall: Respiratory: Respirations are nonlabored. Back: Normal range of motion. Musculoskeletal: Normal ROM with no gross deformity. Gastrointestinal: Urological: Deferred Neurological: Awake and alert. No focal deficits. Follows commands. Psychiatric: Cooperative. Medical Decision Making Patient presents for evaluation of STD exposure. She was just seen yesterday and had full STD evaluation and treatment. It was explained that there is no utility in repeating her testing today, as it would not change treatment. Her cervical cultures are still pending. Her wet prep did return with clue cells and Diflucan, and she is already on a 7-day course of Flagyl and was prescribed Diflucan. She does have appointment next week with [facility] for follow-up, and is educated that she should be retested at that time. Safe sexual practices, specifically condoms were discussed. Patient was encouraged to return to the ED if symptoms worsen or change. Assessment/Plan STD exposure (Z20.2: Contact with and (suspected) exposure to infections with a predominantly sexual mode of transmission) Disposition Plan Patient Discharge Condition Disposition: Discharged home Condition: Improved and stable Counseled: Patient and/or family were counseled to workup, results, treatment plan and follow-up recommendations Discharge Prescription List Prescriptions No active prescription medications Follow-up With When Contact Information Jeanine Gimenez In 3 days 08/05/2019 EST [address], [facility] [address] [place] [address]- Business (1) Additional Instructions: Patient Education Sexually Transmitted Disease Attestation Patient seen and evaluated by the physician assistant professor of dietetics. Attending physician was present in the emergency department and supervised care. This report was transcribed using voice recognition software. Every effort was made to ensure accuracy, however, inadvertently computerized infection control preventionist mistakes may be present. Problem List/Past Medical History Ongoing Smoker Historical Kidney stone Procedure/Surgical History Lithotripsy, Tonsillectomy. Medications Inpatient No active inpatient medications Home Flagyl 500 mg Tab, 500 mg= 1 tab(s), Oral, q12hr Allergies penicillin (hives) Social History Alcohol - Denies Alcohol Use, 12/19/2018 Current, Liquor, 1-2 times per month, 08/02/2019 Current, Liquor, 1-2 times per month, 08/01/2019 Current, 04/05/2019 Substance Abuse - Denies Substance Abuse, 12/19/2018 Current, 08/02/2019 Current, 08/01/2019 Current, 04/05/2019 Tobacco - Denies Tobacco Use, 12/19/2018 5-9 cigarettes (between 1/4 to 1/2 pack)/day in last 30 days Tobacco Use:., 08/02/2019 5-9 cigarettes (between 1/4 to 1/2 pack)/day in last 30 days Tobacco Use:., 08/01/2019 5-9 cigarettes (between 1/4 to 1/2 pack)/day in last 30 days Tobacco Use:. Cigarettes, Ready to change: No. Household tobacco concerns: No. Yes, 05/09/2019 Lab Results No qualifying data available. Diagnostic Results No qualifying data available. [facility] Comment on above: Result Comment: Elec tronically Signed By: Agusto Oshea PA-C\.br\Date and Time Signed: 08/02/19 14:41 EST\.br\Electronically Co-Signed By: Bartolo Randolph DO\.br\Date and Time Co-Signed: 08/02/19 14:43 EST ED Patient Education Noteon 08-02-2019 ED Patient Education Note Family Medicin e Sexually Transmitted Disease A sexually transmitted disease (STD) is a disease or infection that may be passed (transmitted) from person to person, usually during sexual activity. This may happen by way of saliva, semen, blood, vaginal mucus, or urine. Common STDs include: ? Gonorrhea. ? ? Chlamydia. ? ? Syphilis. ? ? HIV and AIDS. ? ? Genital herpes. ? ? Hepatitis B and C. ? ? Trichomonas. ? ? Human papillomavirus (HPV). ? ? Pubic lice. ? ? Scabies. ? Mites. ? Bacterial vaginosis. WHAT ARE CAUSES OF STDs? An STD may be caused by bacteria, a virus, or parasites. STDs are often transmitted during sexual activity if one person is infected. However, they may also be transmitted through nonsexual means. STDs may be transmitted after: ? Sexual intercourse with an infected person. ? ? Sharing sex toys with an infected person. ? ? Sharing needles with an infected person or using unclean piercing or tattoo needles. ? Having intimate contact with the genitals, mouth, or rectal areas of an infected person. ? ? Exposure to infected fluids during . WHAT ARE THE SIGNS AND SYMPTOMS OF STDs? Different STDs have different symptoms. Some people may not have any symptoms. If symptoms are present, they may include: ? Painful or bloody urination. ? ? Pain in the pelvis, abdomen, vagina, anus, throat, or eyes. ? ? A skin rash, itching, or irritation. ? Growths, ulcerations, blisters, or sores in the genital and anal areas. ? Abnormal vaginal discharge with or without bad odor. ? ? Penile discharge in men. ? ? Fever. ? ? Pain or bleeding during sexual intercourse. ? ? Swollen glands in the groin area. ? ? Yellow skin and eyes (jaundice). This is seen with hepatitis. ? ? Swollen testicles. ? Infertility. ? Sores and blisters in the mouth. HOW ARE STDs DIAGNOSED? To make a diagnosis, your health care provider may: ? Take a medical history. ? ? Perform a physical exam. ? ? Take a sample of any discharge to examine. ? Swab the throat, cervix, opening to the penis, rectum, or vagina for testing. ? Test a sample of your first morning urine. ? ? Perform blood tests. ? ? Perform a Pap test, if this applies. ? ? Perform a colposcopy. ? ? Perform a laparoscopy. ? HOW ARE STDs TREATED? ?Treatment depends on the STD. Some STDs may be treated but not cured. ? Chlamydia, gonorrhea, trichomonas, and syphilis can be cured with antibiotic medicine. ? ? Genital herpes, hepatitis, and HIV can be treated, but not cured, with prescribed medicines. The medicines lessen symptoms. ? ? Genital warts from HPV can be treated with medicine or by freezing, burning (electrocautery), or surgery. Warts may come back. ? ? HPV cannot be cured with medicine or surgery. However, abnormal areas may be removed from the cervix, vagina, or vulva. ? ? If your diagnosis is confirmed, your recent sexual partners need treatment. This is true even if they are symptom-free or have a negative culture or evaluation. They should not have sex until their health care providers say it is okay. HOW CAN I REDUCE MY RISK OF GETTING AN STD? Take these steps to reduce your risk of getting an STD: ? Use latex condoms, dental dams, and water-soluble lubricants during sexual activity. Do not use petroleum jelly or oils. ? Avoid having multiple sex partners. ? Do not have sex with someone who has other sex partners. ? Do not have sex with anyone you do not know or who is at high risk for an STD. ? Avoid risky sex practices that can break your skin. ? Do not have sex if you have open sores on your mouth or skin. ? Avoid drinking too much alcohol or taking illegal drugs. Alcohol and drugs can affect your judgment and put you in a vulnerable position. ? Avoid engaging in oral and anal sex acts. ? Get vaccinated for HPV and hepatitis. If you have not received these vaccines in the past, talk to your health care provider about whether one or both might be right for you. ? ? If you are at risk of being infected with HIV, it is recommended that you take a prescription medicine daily to prevent HIV infection. This is called pre-exposure prophylaxis (PrEP). You are considered at risk if: ? You are a man who has sex with other men (MSM). ? You are a heterosexual man or woman and are sexually active with more than one partner. ? You take drugs by injection. ? You are sexually active with a partner who has HIV. ? Talk with your health care provider about whether you are at high risk of being infected with HIV. If you choose to begin PrEP, you should first be tested for HIV. You should then be tested every 3 months for as long as you are taking PrEP. ? WHAT SHOULD I DO IF I THINK I HAVE AN STD? ? See your health care provider. ? ? Tell your sexual partner(s). They should be tested and treated for any STDs. ? Do not have sex until your health care provider says it is okay.? WHEN SHOULD I GET IMMEDIATE MEDICAL CARE? Contact your health care provider right away if: ? You have severe abdominal pain. ? You are a man and notice swelling or pain in your testicles. ? You are a woman and notice swelling or pain in your vagina. Document Released: 11/28/2003 Document Revised: 09/12/2014 Document Reviewed: 03/28/2014 ExitCare? Patient Information ?2015 [employer]. This information is not intended to replace advice given to you by your health care provider. Make sure you discuss any questions you have with your health care provider. Normal [facility] ED Patient Summaryon 019 ED Patient Summary [address] [address] Patient Discharge Instructions Person Information Name: BEATRIS MACK Age: 19 Years Arrival Date: 08/02/2019 1:44 PM Discharge Diagnosis: STD exposure Primary Care Physician: Jeanine Gimenez DO Provider Information Primary Provider: Bartolo Randolph DO Advanced Data Transcriber:Agusto Oshea PA-C The exam and treatment you received in the Emergency Department were for an urgent problem and are not intended as complete care. It is important that you follow up with a doctor, nurse practitioner, or physician?s assistant professor of dietetics for ongoing care. If your symptoms become worse or you do not improve as expected and you are unable to reach your usual health care provider, you should return to the Emergency Department. We are available 24 hours a day. BEATRIS MACK has been given the following list of patient education materials, prescriptions and follow-up instructions: Follow-up Instructions: With: Address: When: Jeanine Gimenez [facility] [address], [facility] [address] [place] [phone] Business (1) In 3 days 08/05/2019 In the event that this physician does not participate in your insurance network, please consult with your insurance company to find a nearby participating provider. Patient Education Materials: Sexually Transmitted Disease A MESSAGE TO ALL PATIENTS REGARDING OPIOIDS PRESCRIPTION OPIOIDS: WHAT YOU NEED TO KNOW Prescription opioids can be used to help relieve tafxrxqx-ra-ixwwit pain and are often prescribed following a surgery or injury, or for certain health conditions. These medications can be an important part of the treatment but also come with serious risks. It is important to work with your healthcare provider to make sure you are getting the safest, most effective care. WHAT ARE THE RISKS AND SIDE EFFECTS OF OPIOID USE? Prescription opioids carry serious risks of addiction and overdose, especially with prolonged use. An opioid overdose, often marked by slowed breathing, can cause sudden . The use of prescription opioids can have a number of side effects as well, even when taken as directed: ? Tolerance?meaning you might need to take more of the medication for the same pain relief ? Physical dependence?meaning you have symptoms of withdrawal when a medication is stopped ? Increased sensitivity to pain ? Constipation ? Nausea, vomiting, and dry mouth ? Sleepiness and dizziness ? Confusion ? Depression ? Low levels of testosterone that can result in lower sex drive, energy, and strength ? Itching and sweating RISKS ARE GREATER WITH: ? History of drug misuse, substance use disorder, or overdose ? Mental health conditions (such as depression or anxiety) ? Sleep apnea ? Older age (65 years and older) ? Avoid alcohol while taking prescription opioids. Also, unless specifically advised by your health care provider, medications to avoid include: ? Benzodiazepines (such as Xanax or Valium) ? Muscle relaxants (such as Soma or Flexeril) ? Hypnotics (such as Ambien or Lunesta) ? Other prescription opioids KNOW YOUR OPTIONS Talk to your health care provider about ways to manage your pain that don?t involve prescription opioids. Some of these options may actually work better and have fewer risks and side effects. Options may include: ? Pain relievers such as acetaminophen, ibuprofen, and naproxen ? Some medication that are also used for depression or seizures ? Physical therapy and exercise ? Cognitive behavioral therapy, a psychological, goal-directed approach, in which patients learn how to modify physical, behavioral, and emotional triggers of pain and stress. IF YOU ARE PRESCRIBED OPIOIDS FOR PAIN: ? Never take opioids in greater amounts or more often than prescribed. ? Follow up with your primary health care provider. o Work together to create a plan on how to manage your pain. o Talk about ways to help manage your pain that don?t involve prescription opioids. o Talk about any and all concerns and side effects. ? Help prevent misuse and abuse o Never sell or share prescription opioids. o Never use another person?s prescription opioids. ? Store prescription opioids in a secure place and out of reach of others (this may include visitors, children, friends, and family). ? Safely dispose of unused prescription opioids: Find your community drug take-back program or your pharmacy mail-back program, or flush them down the toilet, following guidance from the Food and Drug Administration (www.fda.gov/Drugs/ ResourcesForYou). ? Visit www.cdc.gov/drugove rdose to learn about the risks of opioids abuse and overdose. ? If you believe you may be struggling with addiction, tell your health landcare facilitator and ask for guidance or call [facility] National Helpline at 1-567-303-DYUS. c Source: US Department of Health and Human Services/Center for Disease Control & Prevention [facility] Medications Given: Medication Dose Route No medications found. Medication Information: Medications to Continue with No Changes Other Medications metronidazole (Flagyl 500 mg Tab) 1 Tabs By Mouth every 12 hours for 7 Days. Refills: 0. Comment: Pharmacy Information: [facility] Thank you for choosing [facility] Patient Education Materials: Sexually Transmitted Disease A sexually transmitted disease (STD) is a disease or infection that may be passed (transmitted) from person to person, usually during sexual activity. This may happen by way of saliva, semen, blood, vaginal mucus, or urine. Common STDs include: ? Gonorrhea. ? ? Chlamydia. ? ? Syphilis. ? ? HIV and AIDS. ? ? Genital herpes. ? ? Hepatitis B and C. ? ? Trichomonas. ? ? Human papillomavirus (HPV). ? ? Pubic lice. ? ? Scabies. ? Mites. ? Bacterial vaginosis. WHAT ARE CAUSES OF STDs? An STD may be caused by bacteria, a virus, or parasites. STDs are often transmitted during sexual activity if one person is infected. However, they may also be transmitted through nonsexual means. STDs may be transmitted after: ? Sexual intercourse with an infected person. ? ? Sharing sex toys with an infected person. ? ? Sharing needles with an infected person or using unclean piercing or tattoo needles. ? Having intimate contact with the genitals, mouth, or rectal areas of an infected person. ? ? Exposure to infected fluids during . WHAT ARE THE SIGNS AND SYMPTOMS OF STDs? Different STDs have different symptoms. Some people may not have any symptoms. If symptoms are present, they may include: ? Painful or bloody urination. ? ? Pain in the pelvis, abdomen, vagina, anus, throat, or eyes. ? ? A skin rash, itching, or irritation. ? Growths, ulcerations, blisters, or sores in the genital and anal areas. ? Abnormal vaginal discharge with or without bad odor. ? ? Penile discharge in men. ? ? Fever. ? ? Pain or bleeding during sexual intercourse. ? ? Swollen glands in the groin area. ? ? Yellow skin and eyes (jaundice). This is seen with hepatitis. ? ? Swollen testicles. ? Infertility. ? Sores and blisters in the mouth. HOW ARE STDs DIAGNOSED? To make a diagnosis, your health care provider may: ? Take a medical history. ? ? Perform a physical exam. ? ? Take a sample of any discharge to examine. ? Swab the throat, cervix, opening to the penis, rectum, or vagina for testing. ? Test a sample of your first morning urine. ? ? Perform blood tests. ? ? Perform a Pap test, if this applies. ? ? Perform a colposcopy. ? ? Perform a laparoscopy. ? HOW ARE STDs TREATED? ?Treatment depends on the STD. Some STDs may be treated but not cured. ? Chlamydia, gonorrhea, trichomonas, and syphilis can be cured with antibiotic medicine. ? ? Genital herpes, hepatitis, and HIV can be treated, but not cured, with prescribed medicines. The medicines lessen symptoms. ? ? Genital warts from HPV can be treated with medicine or by freezing, burning (electrocautery), or surgery. Warts may come back. ? ? HPV cannot be cured with medicine or surgery. However, abnormal areas may be removed from the cervix, vagina, or vulva. ? ? If your diagnosis is confirmed, your recent sexual partners need treatment. This is true even if they are symptom-free or have a negative culture or evaluation. They should not have sex until their health care providers say it is okay. HOW CAN I REDUCE MY RISK OF GETTING AN STD? Take these steps to reduce your risk of getting an STD: ? Use latex condoms, dental dams, and water-soluble lubricants during sexual activity. Do not use petroleum jelly or oils. ? Avoid having multiple sex partners. ? Do not have sex with someone who has other sex partners. ? Do not have sex with anyone you do not know or who is at high risk for an STD. ? Avoid risky sex practices that can break your skin. ? Do not have sex if you have open sores on your mouth or skin. ? Avoid drinking too much alcohol or taking illegal drugs. Alcohol and drugs can affect your judgment and put you in a vulnerable position. ? Avoid engaging in oral and anal sex acts. ? Get vaccinated for HPV and hepatitis. If you have not received these vaccines in the past, talk to your health care provider about whether one or both might be right for you. ? ? If you are at risk of being infected with HIV, it is recommended that you take a prescription medicine daily to prevent HIV infection. This is called pre-exposure prophylaxis (PrEP). You are considered at risk if: ? You are a man who has sex with other men (MSM). ? You are a heterosexual man or woman and are sexually active with more than one partner. ? You take drugs by injection. ? You are sexually active with a partner who has HIV. ? Talk with your health care provider about whether you are at high risk of being infected with HIV. If you choose to begin PrEP, you should first be tested for HIV. You should then be tested every 3 months for as long as you are taking PrEP. ? WHAT SHOULD I DO IF I THINK I HAVE AN STD? ? See your health care provider. ? ? Tell your sexual partner(s). They should be tested and treated for any STDs. ? Do not have sex until your health care provider says it is okay.? WHEN SHOULD I GET IMMEDIATE MEDICAL CARE? Contact your health care provider right away if: ? You have severe abdominal pain. ? You are a man and notice swelling or pain in your testicles. ? You are a woman and notice swelling or pain in your vagina. Document Released: 11/28/2003 Document Revised: 09/12/2014 Document Reviewed: 03/28/2014 ExitCare? Patient Information ?2014 ClasesD. This information is not intended to replace advice given to you by your health care provider. Make sure you discuss any questions you have with your health care provider. I, BEATRIS MACK , have received the following patient education materials/instructi ons and have verbalized understanding: Patient Education Materials: Sexually Transmitted Disease Follow-up Instructions: With: Address: When: Jeanine Gimenez [address] [place] [address] Rosemary, emmanuel , [place] [address] Business (1) In 3 days 08/05/2019 Prescriptions: Patient Signature Date Clinician/Nurse Signature Date 08/02/19 14:51:07 Normal [facility] ED Clinical Summaryon 2018 ED Clinical Summary [address] [address] ED Clinical Summary Person Information Name: MACKBEATRIS Monique/[facility] Age: 19 Years : 2000 12:00 AM Sex: Female Language: Indonesian PCP: Jeanine Gimenez DO Marital Status: Single Phone: [phone] Visit Id: Visit Reason: Vaginal pain; Vaginal discharge; VAGINAL ITCHING BURNING D/C Speciality: Acuity: 3 Enc Type: Emergency Med Service: Emergency Arrival: 08/01/2019 11:15 AM Discharge: 08/01/2019 12:06 PM LOS: 000 00:51 Checkin: 08/01/2019 11:15 AM Checkout: 08/01/2019 12:06 PM Dispo Type: Home (Routine DC) EVENTS: Event Name Event Status Request Date/Time Start Date/Time Complete Date/Time Arrive Complete 08/01/2019 11:15 AM 08/01/2019 11:15 AM 08/01/2019 11:15 AM Document Home Meds Request 08/01/2019 11:15 AM Triage Complete 08/01/2019 11:15 AM 08/01/2019 11:25 AM 08/01/2019 11:25 AM Bed Assign Complete 08/01/2019 11:15 AM 08/01/2019 11:15 AM 08/01/2019 11:[address] Exam Complete 08/01/2019 11:15 AM 08/01/2019 11:35 AM 08/01/2019 11:35 AM RN Exam Complete 08/01/2019 11:15 AM 08/01/2019 11:28 AM 08/01/2019 11:28 AM Registration Complete 08/01/2019 11:35 AM 08/01/2019 11:49 AM 08/01/2019 11:[address] Exam Complete 08/01/2019 11:38 AM 08/01/2019 11:38 AM 08/01/2019 11:38 AM Meds Admin Complete 08/01/2019 11:47 AM 08/01/2019 12:03 PM Patient Care Request 08/01/2019 11:47 AM Pending Labs Collected 08/01/2019 11:47 AM Lab Inlab 08/01/2019 11:47 AM Reg Complete Request 08/01/2019 11:49 AM Reg Bed Request Complete 08/01/2019 11:49 AM 08/01/2019 11:49 AM 08/01/2019 11:49 AM Discharge Complete 08/01/2019 11:50 AM 08/01/2019 12:06 PM 08/01/2019 12:06 PM Transfer Complete 08/01/2019 12:06 PM 08/01/2019 12:06 PM 08/01/2019 12:06 PM ADDRESS: [address] [place] [phone] [facility] DOC NOTES: MEDICAL INFORMATION: Prescriptions Given: Prescription Display metronidazole (Flagyl 500 mg Tab) 500 mg = 1 tab(s), Oral, q12hr, X 7 day(s), # 14 tab(s), Refills(s) 0 PATIENT EDUCATION INFORMATION: Instructions: Trichomoniasis; Sexually Transmitted Disease; Safe Sex; Cervicitis Follow up: With: Address: When: [place] [address] Business (1) In 3 days 08/04/2019 DIAGNOSIS: Cervicitis; STD exposure Normal [facility] ED Note-Physicianon 08-01-20 ED Note-Physician Basic Information Time Seen: Dorie LOVE Agusto 08/01/2019 11:35 Chief Complaint Pt. states having vaginal discharge, burning, and pain x 3 days. Recently with sexual partner that admitted to having trich. Pt. had sexual encouter 2 days prior. States some abdomen History of Present Illness 19-year-old female comes the ED with concerns for STD. States she recently had nonprotected sexual intercourse with an individual that was noted positive for Trichomonas. She presents with vaginal discharge and vaginal itching. She describes white and yellow drainage. No abdominal pain, back pain, fever, chills, nausea or vomiting. No urinary complaints. Denies any concerned for with oral control use. No prior treatments. No other complaints or concerns. Review of Systems A 10 point review of systems is negative except as noted above. Medical and Surgical History: Reviewed and noted Social history: Lives at home Tobacco: Smoker Physical Exam Vitals & Measurements T: 36.8 ?C (Oral) HR: 96(Peripheral) RR: 16 BP: 137/87 SpO2: 97% HT: 170 cm WT: 70 kg BMI: 24.22 Nurses notes and vital signs reviewed and patient is not hypoxic. General: The patient appears well, resting comfortably. Skin: Warm, dry. Head: Atraumatic. Neck: No JVD. Eye: Normal conjunctiva. Ears, Nose, Mouth, and Throat: Moist mucous membranes. Cardiovascular: Strong distal pulses. Chest wall: Respiratory: Respirations are nonlabored. Back: Normal range of motion. Musculoskeletal: Normal ROM with no gross deformity. Gastrointestinal: Soft and nontender Urological: Pelvic examination was performed with female nurse, Ciara, at bedside. External genitalia shows no acute abnormality. Speculum examination reveals a significant amount of thick yellow and white discharge. There is a thick white coating noted over the cervix. No abnormal bleeding. Cervical os is closed. Neurological: Awake and alert. No focal deficits. Follows commands. Psychiatric: Cooperative. Medical Decision Making Patient has known Trichomonas exposure. A pelvic examination shows a large amount of abnormal white and yellow discharge concerning for candidiasis or bacterial vaginosis. Given her history and physical examination findings, she is treated empirically here in the ED with ceftriaxone and azithromycin for chlamydia and gonorrhea coverage. She'll be discharged home on Flagyl for both bacterial vaginosis and Trichomonas coverage. Additionally, she is treated with Diflucan for yeast. She is educated as a sexual practices, and is to follow-up with WALL ATTENDANT and PCP.Patient was encouraged to return to the ED if symptoms worsen or change. Cervical cultures were obtained and are pending. Assessment/Plan Cervicitis (N72: Inflammatory disease of cervix uteri) STD exposure (Z20.2: Contact with and (suspected) exposure to infections with a predominantly sexual mode of transmission) Orders: azithromycin, 1,000 mg = 4 tab(s), Tab, Oral, Once, Stop date 08/01/19 11:46:00 EST, STAT, Start date 08/01/19 11:46:00 EST ceftriaxone, 250 mg = 1 EA, Injection, IntraMuscular, Once, Stop date 08/01/19 11:46:00 EST, STAT, Start date 08/01/19 11:46:00 EST fluconazole, 150 mg = 1 tab(s), Oral, Once, take after completing the course of antibiotics, # 1 tab(s), Refills(s) 0 fluconazole, 150 mg = 1 tab(s), Tab, Oral, Once, Stop date 08/01/19 11:47:00 EST, STAT, Start date 08/01/19 11:47:00 EST metronidazole, 500 mg = 1 tab(s), Oral, q12hr, X 7 day(s), # 14 tab(s), Refills(s) 0 Cervical Culture Chlamydia/Gonococcu s, LEV Pelvic Exam Setup Medications Administered Given azithromycin 250 mg Tab, 1000 mg, Oral cefTRIAXone IM, 250 mg, IntraMuscular Diflucan 150 mg Tab, 150 mg, Oral Disposition Plan Patient Discharge Condition Disposition: Discharged home Condition: Improved and stable Counseled: Patient and/or family were counseled to workup, results, treatment plan and follow-up recommendations Discharge Prescription List Prescriptions Flagyl 500 mg Tab, 500 mg= 1 tab(s), Oral, q12hr Follow-up With When Contact Information Saida BAIG In 3 days 08/04/[address] [place] [address]- Business (1) Additional Instructions: Patient Education Trichomoniasis Sexually Transmitted Disease Safe Sex Cervicitis Attestation Patient seen and evaluated by the physician assistant professor of dietetics. Attending physician was present in the emergency department and supervised care. This report was transcribed using voice recognition software. Every effort was made to ensure accuracy, however, inadvertently computerized infection control preventionist mistakes may be present. ATTENDING NOTE: I discussed the management with the resident/PA. I reviewed the resident/PA's note and agree with the documented findings and plan of care. Joanne Lutz DO Problem List/Past Medical History Ongoing Smoker Historical Kidney stone Procedure/Surgical History Lithotripsy, Tonsillectomy. Medications Inpatient No active inpatient medications Home Flagyl 500 mg Tab, 500 mg= 1 tab(s), Oral, q12hr Allergies penicillin (hives) Social History Alcohol - Denies Alcohol Use, 12/19/2018 Current, Liquor, 1-2 times per month, 08/01/2019 Current, 04/05/2019 Substance Abuse - Denies Substance Abuse, 12/19/2018 Current, 08/01/2019 Current, 04/05/2019 Tobacco - Denies Tobacco Use, 12/19/2018 5-9 cigarettes (between 1/4 to 1/2 pack)/day in last 30 days Tobacco Use:., 08/01/2019 5-9 cigarettes (between 1/4 to 1/2 pack)/day in last 30 days Tobacco Use:. Cigarettes, Ready to change: No. Household tobacco concerns: No. Yes, 05/09/2019 Lab Results No qualifying data available. Diagnostic Results No qualifying data available. Normal [facility] Comment on above: Result Comment: Elec tronically Signed By: Agusto Oshea PA-C\.br\Date and Time Signed: 08/01/19 12:46 EST\.br\Electronically Co-Signed By: Joanne Lutz DO\.br\Date and Time Co-Signed: 08/01/19 15:41 EST ED Patient Education Noteon 08-01-2019 ED Patient Education Note Family Medicin e Sexually Transmitted Disease A sexually transmitted disease (STD) is a disease or infection that may be passed (transmitted) from person to person, usually during sexual activity. This may happen by way of saliva, semen, blood, vaginal mucus, or urine. Common STDs include: ? Gonorrhea. ? ? Chlamydia. ? ? Syphilis. ? ? HIV and AIDS. ? ? Genital herpes. ? ? Hepatitis B and C. ? ? Trichomonas. ? ? Human papillomavirus (HPV). ? ? Pubic lice. ? ? Scabies. ? Mites. ? Bacterial vaginosis. WHAT ARE CAUSES OF STDs? An STD may be caused by bacteria, a virus, or parasites. STDs are often transmitted during sexual activity if one person is infected. However, they may also be transmitted through nonsexual means. STDs may be transmitted after: ? Sexual intercourse with an infected person. ? ? Sharing sex toys with an infected person. ? ? Sharing needles with an infected person or using unclean piercing or tattoo needles. ? Having intimate contact with the genitals, mouth, or rectal areas of an infected person. ? ? Exposure to infected fluids during . WHAT ARE THE SIGNS AND SYMPTOMS OF STDs? Different STDs have different symptoms. Some people may not have any symptoms. If symptoms are present, they may include: ? Painful or bloody urination. ? ? Pain in the pelvis, abdomen, vagina, anus, throat, or eyes. ? ? A skin rash, itching, or irritation. ? Growths, ulcerations, blisters, or sores in the genital and anal areas. ? Abnormal vaginal discharge with or without bad odor. ? ? Penile discharge in men. ? ? Fever. ? ? Pain or bleeding during sexual intercourse. ? ? Swollen glands in the groin area. ? ? Yellow skin and eyes (jaundice). This is seen with hepatitis. ? ? Swollen testicles. ? Infertility. ? Sores and blisters in the mouth. HOW ARE STDs DIAGNOSED? To make a diagnosis, your health care provider may: ? Take a medical history. ? ? Perform a physical exam. ? ? Take a sample of any discharge to examine. ? Swab the throat, cervix, opening to the penis, rectum, or vagina for testing. ? Test a sample of your first morning urine. ? ? Perform blood tests. ? ? Perform a Pap test, if this applies. ? ? Perform a colposcopy. ? ? Perform a laparoscopy. ? HOW ARE STDs TREATED? ?Treatment depends on the STD. Some STDs may be treated but not cured. ? Chlamydia, gonorrhea, trichomonas, and syphilis can be cured with antibiotic medicine. ? ? Genital herpes, hepatitis, and HIV can be treated, but not cured, with prescribed medicines. The medicines lessen symptoms. ? ? Genital warts from HPV can be treated with medicine or by freezing, burning (electrocautery), or surgery. Warts may come back. ? ? HPV cannot be cured with medicine or surgery. However, abnormal areas may be removed from the cervix, vagina, or vulva. ? ? If your diagnosis is confirmed, your recent sexual partners need treatment. This is true even if they are symptom-free or have a negative culture or evaluation. They should not have sex until their health care providers say it is okay. HOW CAN I REDUCE MY RISK OF GETTING AN STD? Take these steps to reduce your risk of getting an STD: ? Use latex condoms, dental dams, and water-soluble lubricants during sexual activity. Do not use petroleum jelly or oils. ? Avoid having multiple sex partners. ? Do not have sex with someone who has other sex partners. ? Do not have sex with anyone you do not know or who is at high risk for an STD. ? Avoid risky sex practices that can break your skin. ? Do not have sex if you have open sores on your mouth or skin. ? Avoid drinking too much alcohol or taking illegal drugs. Alcohol and drugs can affect your judgment and put you in a vulnerable position. ? Avoid engaging in oral and anal sex acts. ? Get vaccinated for HPV and hepatitis. If you have not received these vaccines in the past, talk to your health care provider about whether one or both might be right for you. ? ? If you are at risk of being infected with HIV, it is recommended that you take a prescription medicine daily to prevent HIV infection. This is called pre-exposure prophylaxis (PrEP). You are considered at risk if: ? You are a man who has sex with other men (MSM). ? You are a heterosexual man or woman and are sexually active with more than one partner. ? You take drugs by injection. ? You are sexually active with a partner who has HIV. ? Talk with your health care provider about whether you are at high risk of being infected with HIV. If you choose to begin PrEP, you should first be tested for HIV. You should then be tested every 3 months for as long as you are taking PrEP. ? WHAT SHOULD I DO IF I THINK I HAVE AN STD? ? See your health care provider. ? ? Tell your sexual partner(s). They should be tested and treated for any STDs. ? Do not have sex until your health care provider says it is okay.? WHEN SHOULD I GET IMMEDIATE MEDICAL CARE? Contact your health care provider right away if: ? You have severe abdominal pain. ? You are a man and notice swelling or pain in your testicles. ? You are a woman and notice swelling or pain in your vagina. Document Released: 11/28/2003 Document Revised: 09/12/2014 Document Reviewed: 03/28/2014 ExitCare? Patient Information ?2015 ClasesD. This information is not intended to replace advice given to you by your health care provider. Make sure you discuss any questions you have with your health care provider. Cervicitis Cervicitis is a soreness and swelling (inflammation) of the cervix. Your cervix is located at the bottom of your uterus. It opens up to the vagina. CAUSES ? Sexually transmitted infections (STIs). ? ? Allergic reaction. ? ? Medicines or control devices that are put in the vagina. ? ? Injury to the cervix. ? ? Bacterial infections. ? RISK FACTORS You are at greater risk if you: ? Have unprotected sexual intercourse. ? Have sexual intercourse with many partners. ? Began sexual intercourse at an early age. ? Have a history of STIs. SYMPTOMS There may be no symptoms. If symptoms occur, they may include: ? Palomo, white, yellow, or bad-smelling vaginal discharge. ? ? Pain or itching of the area outside the vagina. ? ? Painful sexual intercourse. ? ? Lower abdominal or lower back pain, especially during intercourse. ? ? Frequent urination. ? ? Abnormal vaginal bleeding between periods, after sexual intercourse, or after menopause. ? ? Pressure or a heavy feeling in the pelvis. ? DIAGNOSIS Diagnosis is made after a pelvic exam. Other tests may include: ? Examination of any discharge under a microscope (wet prep). ? ? A Pap test. ? TREATMENT Treatment will depend on the cause of cervicitis. If it is caused by an STI, both you and your partner will need to be treated. Antibiotic medicines will be given. HOME CARE INSTRUCTIONS ? Do not have sexual intercourse until your health care provider says it is okay. ? ? Do not have sexual intercourse until your partner has been treated, if your cervicitis is caused by an STI. ? ? Take your antibiotics as directed. Finish them even if you start to feel better. ? SEEK MEDICAL CARE IF: ? Your symptoms come back. ? ? You have a fever. ? MAKE SURE YOU: ? Understand these instructions. ? Will watch your condition. ? Will get help right away if you are not doing well or get worse. Document Released: 09/07/2006 Document Revised: 09/12/2014 Document Reviewed: 03/01/2014 ExitCare? Patient Information ?2015 ClasesD. This information is not intended to replace advice given to you by your health care provider. Make sure you discuss any questions you have with your health care provider. Obstetrics and Gynecology Trichomoniasis Trichomoniasis is an infection caused by an organism called Trichomonas. The infection can affect both women and men. In women, the outer female genitalia and the vagina are affected. In men, the penis is mainly affected, but the prostate and other reproductive organs can also be involved. Trichomoniasis is a sexually transmitted infection (STI) and is most often passed to another person through sexual contact. RISK FACTORS ? Having unprotected sexual intercourse. ? Having sexual intercourse with an infected partner. SIGNS AND SYMPTOMS Symptoms of trichomoniasis in women include: ? Abnormal palomo-green frothy vaginal discharge. ? Itching and irritation of the vagina. ? Itching and irritation of the area outside the vagina. Symptoms of trichomoniasis in men include: ? Penile discharge with or without pain. ? Pain during urination. This results from inflammation of the urethra. DIAGNOSIS Trichomoniasis may be found during a Pap test or physical exam. Your health care provider may use one of the following methods to help diagnose this infection: ? Examining vaginal discharge under a microscope. For men, urethral discharge would be examined. ? Testing the pH of the vagina with a test tape. ? Using a vaginal swab test that checks for the Trichomonas organism. A test is available that provides results within a few minutes. ? Doing a culture test for the organism. This is not usually needed. TREATMENT ? You may be given medicine to fight the infection. Women should inform their health care provider if they could be or are . Some medicines used to treat the infection should not be taken during . ? Your health care provider may recommend zhss-[id number]-[id number] medicines or creams to decrease itching or irritation. ? Your sexual partner will need to be treated if infected. HOME CARE INSTRUCTIONS ? Take medicines only as directed by your health care provider. ? Take lsby-fsz-nnfqxyu medicine for itching or irritation as directed by your health care provider. ? Do not have sexual intercourse while you have the infection. ? Women should not douche or wear tampons while they have the infection. ? Discuss your infection with your partner. Your partner may have gotten the infection from you, or you may have gotten it from your partner. ? Have your sex partner get examined and treated if necessary. ? Practice safe, informed, and protected sex. ? See your health care provider for other STI testing. SEEK MEDICAL CARE IF: ? You still have symptoms after you finish your medicine. ? You develop abdominal pain. ? You have pain when you urinate. ? You have bleeding after sexual intercourse. ? You develop a rash. ? Your medicine makes you sick or makes you throw up (vomit). MAKE SURE YOU: ? Understand these instructions. ? Will watch your condition. ? Will get help right away if you are not doing well or get worse. Document Released: 03/03/2002 Document Revised: 01/22/2015 Document Reviewed: 06/19/2014 ExitCare? Patient Information ?2015 ClasesD. This information is not intended to replace advice given to you by your health care provider. Make sure you discuss any questions you have with your health care provider. Preventive Medicine Safe Sex Safe sex is about reducing the risk of giving or getting a sexually transmitted disease (STD). STDs are spread through sexual contact involving the genitals, mouth, or rectum. Some STDs can be cured and others cannot. Safe sex can also prevent unintended pregnancies. WHAT ARE SOME SAFE SEX PRACTICES? ? Limit your sexual activity to only one partner who is having sex with only you. ? Talk to your partner about his or her past partners, past STDs, and drug use. ? Use a condom every time you have sexual intercourse. This includes vaginal, oral, and anal sexual activity. Both females and males should wear condoms during oral sex. Only use latex or polyurethane condoms and water-based lubricants. Using petroleum-based lubricants or oils to lubricate a condom will weaken the condom and increase the chance that it will break. The condom should be in place from the beginning to the end of sexual activity. Wearing a condom reduces, but does not completely eliminate, your risk of getting or giving an STD. STDs can be spread by contact with infected body fluids and skin. ? Get vaccinated for hepatitis B and HPV. ? Avoid alcohol and recreational drugs, which can affect your judgment. You may forget to use a condom or participate in high-risk sex. ? For females, avoid douching after sexual intercourse. Douching can spread an infection farther into the reproductive tract. ? Check your body for signs of sores, blisters, rashes, or unusual discharge. See your health care provider if you notice any of these signs. ? Avoid sexual contact if you have symptoms of an infection or are being treated for an STD. If you or your partner has herpes, avoid sexual contact when blisters are present. Use condoms at all other times. ? If you are at risk of being infected with HIV, it is recommended that you take a prescription medicine daily to prevent HIV infection. This is called pre-exposure prophylaxis (PrEP). You are considered at risk if: ? You are a man who has sex with other men (MSM). ? You are a heterosexual man or woman who is sexually active with more than one partner. ? You take drugs by injection. ? You are sexually active with a partner who has HIV. ? Talk with your health care provider about whether you are at high risk of being infected with HIV. If you choose to begin PrEP, you should first be tested for HIV. You should then be tested every 3 months for as long as you are taking PrEP. ? See your health care provider for regular screenings, exams, and tests for other STDs. Before having sex with a new partner, each of you should be screened for STDs and should talk about the results with each other. WHAT ARE THE BENEFITS OF SAFE SEX? ? There is less chance of getting or giving an STD. ? You can prevent unwanted or unintended pregnancies. ? By discussing safe sex concerns with your partner, you may increase feelings of intimacy, comfort, trust, and honesty between the two of you. Document Released: 10/15/2005 Document Revised: 01/22/2015 Document Reviewed: 02/28/2013 ExitCare? Patient Information ?2014 ClasesD. This information is not intended to replace advice given to you by your health care provider. Make sure you discuss any questions you have with your health care provider. Normal [facility] ED Patient Summaryon 019 ED Patient Summary [place] [id number] Patient Discharge Instructions Person Information Name: BEATRIS MACK Age: 19 Years Arrival Date: 08/01/2019 11:15 AM Discharge Diagnosis: Cervicitis; STD exposure Primary Care Physician: Jeanine Gimenez DO Provider Information Primary Provider: Joanne Lutz Advanced Data Transcriber:Agusto Oshea PA-C The exam and treatment you received in the Emergency Department were for an urgent problem and are not intended as complete care. It is important that you follow up with a doctor, nurse practitioner, or physician?s assistant professor of dietetics for ongoing care. If your symptoms become worse or you do not improve as expected and you are unable to reach your usual health care provider, you should return to the Emergency Department. We are available 24 hours a day. BEATRIS MACK has been given the following list of patient education materials, prescriptions and follow-up instructions: Follow-up Instructions: With: Address: When: Saida BAIG [address] [place] [address] Business (1) In 3 days 08/04/2019 In the event that this physician does not participate in your insurance network, please consult with your insurance company to find a nearby participating provider. Patient Education Materials: Trichomoniasis; Sexually Transmitted Disease; Safe Sex; Cervicitis A MESSAGE TO ALL PATIENTS REGARDING OPIOIDS PRESCRIPTION OPIOIDS: WHAT YOU NEED TO KNOW Prescription opioids can be used to help relieve stbmzbzv-jv-fojcpy pain and are often prescribed following a surgery or injury, or for certain health conditions. These medications can be an important part of the treatment but also come with serious risks. It is important to work with your healthcare provider to make sure you are getting the safest, most effective care. WHAT ARE THE RISKS AND SIDE EFFECTS OF OPIOID USE? Prescription opioids carry serious risks of addiction and overdose, especially with prolonged use. An opioid overdose, often marked by slowed breathing, can cause sudden . The use of prescription opioids can have a number of side effects as well, even when taken as directed: ? Tolerance?meaning you might need to take more of the medication for the same pain relief ? Physical dependence?meaning you have symptoms of withdrawal when a medication is stopped ? Increased sensitivity to pain ? Constipation ? Nausea, vomiting, and dry mouth ? Sleepiness and dizziness ? Confusion ? Depression ? Low levels of testosterone that can result in lower sex drive, energy, and strength ? Itching and sweating RISKS ARE GREATER WITH: ? History of drug misuse, substance use disorder, or overdose ? Mental health conditions (such as depression or anxiety) ? Sleep apnea ? Older age (65 years and older) ? Avoid alcohol while taking prescription opioids. Also, unless specifically advised by your health care provider, medications to avoid include: ? Benzodiazepines (such as Xanax or Valium) ? Muscle relaxants (such as Soma or Flexeril) ? Hypnotics (such as Ambien or Lunesta) ? Other prescription opioids KNOW YOUR OPTIONS Talk to your health care provider about ways to manage your pain that don?t involve prescription opioids. Some of these options may actually work better and have fewer risks and side effects. Options may include: ? Pain relievers such as acetaminophen, ibuprofen, and naproxen ? Some medication that are also used for depression or seizures ? Physical therapy and exercise ? Cognitive behavioral therapy, a psychological, goal-directed approach, in which patients learn how to modify physical, behavioral, and emotional triggers of pain and stress. IF YOU ARE PRESCRIBED OPIOIDS FOR PAIN: ? Never take opioids in greater amounts or more often than prescribed. ? Follow up with your primary health care provider. o Work together to create a plan on how to manage your pain. o Talk about ways to help manage your pain that don?t involve prescription opioids. o Talk about any and all concerns and side effects. ? Help prevent misuse and abuse o Never sell or share prescription opioids. o Never use another person?s prescription opioids. ? Store prescription opioids in a secure place and out of reach of others (this may include visitors, children, friends, and family). ? Safely dispose of unused prescription opioids: Find your community drug take-back program or your pharmacy mail-back program, or flush them down the toilet, following guidance from the Food and Drug Administration (www.fda.gov/Drugs/ ResourcesForYou). ? Visit www.cdc.gov/drugove rdose to learn about the risks of opioids abuse and overdose. ? If you believe you may be struggling with addiction, tell your health landcare facilitator and ask for guidance or call SAMHSA?S National Helpline at 2-328-332-HELP. v Source: [place] Department of Health and Human Services/Center for Disease Control & Prevention [facility] Medications Given: Medication Dose Route azithromycin 1000.00 mg Oral ceftriaxone 250.00 mg IntraMuscular Left Gluteus Medius fluconazole 150.00 mg Oral Medication Information: New Medications Printed Prescriptions metronidazole (Flagyl 500 mg Tab) 1 Tabs By Mouth every 12 hours for 7 Days. Refills: 0. Comment: Pharmacy Information: [facility] Thank you for choosing [facility] Patient Education Materials: Trichomoniasis Trichomoniasis is an infection caused by an organism called Trichomonas. The infection can affect both women and men. In women, the outer female genitalia and the vagina are affected. In men, the penis is mainly affected, but the prostate and other reproductive organs can also be involved. Trichomoniasis is a sexually transmitted infection (STI) and is most often passed to another person through sexual contact. RISK FACTORS ? Having unprotected sexual intercourse. ? Having sexual intercourse with an infected partner. SIGNS AND SYMPTOMS Symptoms of trichomoniasis in women include: ? Abnormal palomo-green frothy vaginal discharge. ? Itching and irritation of the vagina. ? Itching and irritation of the area outside the vagina. Symptoms of trichomoniasis in men include: ? Penile discharge with or without pain. ? Pain during urination. This results from inflammation of the urethra. DIAGNOSIS Trichomoniasis may be found during a Pap test or physical exam. Your health care provider may use one of the following methods to help diagnose this infection: ? Examining vaginal discharge under a microscope. For men, urethral discharge would be examined. ? Testing the pH of the vagina with a test tape. ? Using a vaginal swab test that checks for the Trichomonas organism. A test is available that provides results within a few minutes. ? Doing a culture test for the organism. This is not usually needed. TREATMENT ? You may be given medicine to fight the infection. Women should inform their health care provider if they could be or are . Some medicines used to treat the infection should not be taken during . ? Your health care provider may recommend iwtx-msi-oppzlhg medicines or creams to decrease itching or irritation. ? Your sexual partner will need to be treated if infected. HOME CARE INSTRUCTIONS ? Take medicines only as directed by your health care provider. ? Take ebnu-syw-nqmggko medicine for itching or irritation as directed by your health care provider. ? Do not have sexual intercourse while you have the infection. ? Women should not douche or wear tampons while they have the infection. ? Discuss your infection with your partner. Your partner may have gotten the infection from you, or you may have gotten it from your partner. ? Have your sex partner get examined and treated if necessary. ? Practice safe, informed, and protected sex. ? See your health care provider for other STI testing. SEEK MEDICAL CARE IF: ? You still have symptoms after you finish your medicine. ? You develop abdominal pain. ? You have pain when you urinate. ? You have bleeding after sexual intercourse. ? You develop a rash. ? Your medicine makes you sick or makes you throw up (vomit). MAKE SURE YOU: ? Understand these instructions. ? Will watch your condition. ? Will get help right away if you are not doing well or get worse. Document Released: 03/03/2002 Document Revised: 01/22/2015 Document Reviewed: 06/19/2014 ExitCare? Patient Information ?2015 ClasesD. This information is not intended to replace advice given to you by your health care provider. Make sure you discuss any questions you have with your health care provider. Sexually Transmitted Disease A sexually transmitted disease (STD) is a disease or infection that may be passed (transmitted) from person to person, usually during sexual activity. This may happen by way of saliva, semen, blood, vaginal mucus, or urine. Common STDs include: ? Gonorrhea. ? ? Chlamydia. ? ? Syphilis. ? ? HIV and AIDS. ? ? Genital herpes. ? ? Hepatitis B and C. ? ? Trichomonas. ? ? Human papillomavirus (HPV). ? ? Pubic lice. ? ? Scabies. ? Mites. ? Bacterial vaginosis. WHAT ARE CAUSES OF STDs? An STD may be caused by bacteria, a virus, or parasites. STDs are often transmitted during sexual activity if one person is infected. However, they may also be transmitted through nonsexual means. STDs may be transmitted after: ? Sexual intercourse with an infected person. ? ? Sharing sex toys with an infected person. ? ? Sharing needles with an infected person or using unclean piercing or tattoo needles. ? Having intimate contact with the genitals, mouth, or rectal areas of an infected person. ? ? Exposure to infected fluids during . WHAT ARE THE SIGNS AND SYMPTOMS OF STDs? Different STDs have different symptoms. Some people may not have any symptoms. If symptoms are present, they may include: ? Painful or bloody urination. ? ? Pain in the pelvis, abdomen, vagina, anus, throat, or eyes. ? ? A skin rash, itching, or irritation. ? Growths, ulcerations, blisters, or sores in the genital and anal areas. ? Abnormal vaginal discharge with or without bad odor. ? ? Penile discharge in men. ? ? Fever. ? ? Pain or bleeding during sexual intercourse. ? ? Swollen glands in the groin area. ? ? Yellow skin and eyes (jaundice). This is seen with hepatitis. ? ? Swollen testicles. ? Infertility. ? Sores and blisters in the mouth. HOW ARE STDs DIAGNOSED? To make a diagnosis, your health care provider may: ? Take a medical history. ? ? Perform a physical exam. ? ? Take a sample of any discharge to examine. ? Swab the throat, cervix, opening to the penis, rectum, or vagina for testing. ? Test a sample of your first morning urine. ? ? Perform blood tests. ? ? Perform a Pap test, if this applies. ? ? Perform a colposcopy. ? ? Perform a laparoscopy. ? HOW ARE STDs TREATED? ?Treatment depends on the STD. Some STDs may be treated but not cured. ? Chlamydia, gonorrhea, trichomonas, and syphilis can be cured with antibiotic medicine. ? ? Genital herpes, hepatitis, and HIV can be treated, but not cured, with prescribed medicines. The medicines lessen symptoms. ? ? Genital warts from HPV can be treated with medicine or by freezing, burning (electrocautery), or surgery. Warts may come back. ? ? HPV cannot be cured with medicine or surgery. However, abnormal areas may be removed from the cervix, vagina, or vulva. ? ? If your diagnosis is confirmed, your recent sexual partners need treatment. This is true even if they are symptom-free or have a negative culture or evaluation. They should not have sex until their health care providers say it is okay. HOW CAN I REDUCE MY RISK OF GETTING AN STD? Take these steps to reduce your risk of getting an STD: ? Use latex condoms, dental dams, and water-soluble lubricants during sexual activity. Do not use petroleum jelly or oils. ? Avoid having multiple sex partners. ? Do not have sex with someone who has other sex partners. ? Do not have sex with anyone you do not know or who is at high risk for an STD. ? Avoid risky sex practices that can break your skin. ? Do not have sex if you have open sores on your mouth or skin. ? Avoid drinking too much alcohol or taking illegal drugs. Alcohol and drugs can affect your judgment and put you in a vulnerable position. ? Avoid engaging in oral and anal sex acts. ? Get vaccinated for HPV and hepatitis. If you have not received these vaccines in the past, talk to your health care provider about whether one or both might be right for you. ? ? If you are at risk of being infected with HIV, it is recommended that you take a prescription medicine daily to prevent HIV infection. This is called pre-exposure prophylaxis (PrEP). You are considered at risk if: ? You are a man who has sex with other men (MSM). ? You are a heterosexual man or woman and are sexually active with more than one partner. ? You take drugs by injection. ? You are sexually active with a partner who has HIV. ? Talk with your health care provider about whether you are at high risk of being infected with HIV. If you choose to begin PrEP, you should first be tested for HIV. You should then be tested every 3 months for as long as you are taking PrEP. ? WHAT SHOULD I DO IF I THINK I HAVE AN STD? ? See your health care provider. ? ? Tell your sexual partner(s). They should be tested and treated for any STDs. ? Do not have sex until your health care provider says it is okay.? WHEN SHOULD I GET IMMEDIATE MEDICAL CARE? Contact your health care provider right away if: ? You have severe abdominal pain. ? You are a man and notice swelling or pain in your testicles. ? You are a woman and notice swelling or pain in your vagina. Document Released: 11/28/2003 Document Revised: 09/12/2014 Document Reviewed: 03/28/2014 ExitCare? Patient Information ?2014 ClasesD. This information is not intended to replace advice given to you by your health care provider. Make sure you discuss any questions you have with your health care provider. Safe Sex Safe sex is about reducing the risk of giving or getting a sexually transmitted disease (STD). STDs are spread through sexual contact involving the genitals, mouth, or rectum. Some STDs can be cured and others cannot. Safe sex can also prevent unintended pregnancies. WHAT ARE SOME SAFE SEX PRACTICES? ? Limit your sexual activity to only one partner who is having sex with only you. ? Talk to your partner about his or her past partners, past STDs, and drug use. ? Use a condom every time you have sexual intercourse. This includes vaginal, oral, and anal sexual activity. Both females and males should wear condoms during oral sex. Only use latex or polyurethane condoms and water-based lubricants. Using petroleum-based lubricants or oils to lubricate a condom will weaken the condom and increase the chance that it will break. The condom should be in place from the beginning to the end of sexual activity. Wearing a condom reduces, but does not completely eliminate, your risk of getting or giving an STD. STDs can be spread by contact with infected body fluids and skin. ? Get vaccinated for hepatitis B and HPV. ? Avoid alcohol and recreational drugs, which can affect your judgment. You may forget to use a condom or participate in high-risk sex. ? For females, avoid douching after sexual intercourse. Douching can spread an infection farther into the reproductive tract. ? Check your body for signs of sores, blisters, rashes, or unusual discharge. See your health care provider if you notice any of these signs. ? Avoid sexual contact if you have symptoms of an infection or are being treated for an STD. If you or your partner has herpes, avoid sexual contact when blisters are present. Use condoms at all other times. ? If you are at risk of being infected with HIV, it is recommended that you take a prescription medicine daily to prevent HIV infection. This is called pre-exposure prophylaxis (PrEP). You are considered at risk if: ? You are a man who has sex with other men (MSM). ? You are a heterosexual man or woman who is sexually active with more than one partner. ? You take drugs by injection. ? You are sexually active with a partner who has HIV. ? Talk with your health care provider about whether you are at high risk of being infected with HIV. If you choose to begin PrEP, you should first be tested for HIV. You should then be tested every 3 months for as long as you are taking PrEP. ? See your health care provider for regular screenings, exams, and tests for other STDs. Before having sex with a new partner, each of you should be screened for STDs and should talk about the results with each other. WHAT ARE THE BENEFITS OF SAFE SEX? ? There is less chance of getting or giving an STD. ? You can prevent unwanted or unintended pregnancies. ? By discussing safe sex concerns with your partner, you may increase feelings of intimacy, comfort, trust, and honesty between the two of you. Document Released: 10/15/2005 Document Revised: 01/22/2015 Document Reviewed: 02/28/2013 ExitCare? Patient Information ?2015 ClasesD. This information is not intended to replace advice given to you by your health care provider. Make sure you discuss any questions you have with your health care provider. Cervicitis Cervicitis is a soreness and swelling (inflammation) of the cervix. Your cervix is located at the bottom of your uterus. It opens up to the vagina. CAUSES ? Sexually transmitted infections (STIs). ? ? Allergic reaction. ? ? Medicines or control devices that are put in the vagina. ? ? Injury to the cervix. ? ? Bacterial infections. ? RISK FACTORS You are at greater risk if you: ? Have unprotected sexual intercourse. ? Have sexual intercourse with many partners. ? Began sexual intercourse at an early age. ? Have a history of STIs. SYMPTOMS There may be no symptoms. If symptoms occur, they may include: ? Palomo, white, yellow, or bad-smelling vaginal discharge. ? ? Pain or itching of the area outside the vagina. ? ? Painful sexual intercourse. ? ? Lower abdominal or lower back pain, especially during intercourse. ? ? Frequent urination. ? ? Abnormal vaginal bleeding between periods, after sexual intercourse, or after menopause. ? ? Pressure or a heavy feeling in the pelvis. ? DIAGNOSIS Diagnosis is made after a pelvic exam. Other tests may include: ? Examination of any discharge under a microscope (wet prep). ? ? A Pap test. ? TREATMENT Treatment will depend on the cause of cervicitis. If it is caused by an STI, both you and your partner will need to be treated. Antibiotic medicines will be given. HOME CARE INSTRUCTIONS ? Do not have sexual intercourse until your health care provider says it is okay. ? ? Do not have sexual intercourse until your partner has been treated, if your cervicitis is caused by an STI. ? ? Take your antibiotics as directed. Finish them even if you start to feel better. ? SEEK MEDICAL CARE IF: ? Your symptoms come back. ? ? You have a fever. ? MAKE SURE YOU: ? Understand these instructions. ? Will watch your condition. ? Will get help right away if you are not doing well or get worse. Document Released: 09/07/2006 Document Revised: 09/12/2014 Document Reviewed: 03/01/2014 ExitCare? Patient Information ?2014 [employer]. This information is not intended to replace advice given to you by your health care provider. Make sure you discuss any questions you have with your health care provider. FREDERICK Stein HAYLEE T , have received the following patient education materials/instructi ons and have verbalized understanding: Patient Education Materials: Trichomoniasis; Sexually Transmitted Disease; Safe Sex; Cervicitis Follow-up Instructions: With: Address: When: [place] [address] Business (1) In 3 days 08/04/2019 Prescriptions: [metronidazole (Flagyl 500 mg Tab)] Patient Signature Date Clinician/Nurse Signature Date 08/01/19 12:06:35 Normal [facility] Pre-Arrival Noteon 9 Pre-Arrival Note Pre-Arrival Summary Name: , ncems Current Date: 08/01/2019 11:16:54 EST Gender: Female Date of : Age: 89 Pre-Arrival Type: EMS ETA: 08/01/2019 11:29:00 EST Primary Care Physician: Presenting Problem: fall, posterior head lac. Pre-Arrival User: Dominique Matamoros RN Referring Source: Location: [place] Completion Date/Time: 08/01/19 10:59:00 [facility] Emergency Department Pre-Hospital Report Form ___ Vital Signs: Pre-Hospital Report: Treatment in Route: Response to Treatment: Misc. Issues: Normal [facility] CNPTOUTREACHochandana 05-06-2019 [facility] Patient Outreach (NEPHMN) ---- BEATRIS MACK ([id number]) 1 F Date Time Provider Department 05/06/19 SATISH VILLALPANDO NEPHMN During your visit today, we recorded the following information about you: Allergies As of Date: 05/06/2019 (Not on File) Date Reviewed: Never Reviewed Visit Diagnosis:Screening for genitourinary condition [Z13.89] Order(s):UA CHEMSTRIP ONLY [SQUA] Order #: [id number] Problem List As Of Date: 05/06/2019 (None) Encounter Status:Closed by EPIC, PRODUSER on 05/23/19 Normal [facility] Vital Signs Date Time Vital Sign Value Performing Clinician Estrella vazquez 07-11-2024 16:00-0400 Diastolic blood pressure 76 mm[Hg] PHYSICIAN NO [facility] 07-11-2024 16:00-0400 Heart rate 76 /min PHYSICIAN NO [facility] 07-11-2024 16:00-0400 Respiratory rate 16 /min PHYSICIAN NO [facility] 07-11-2024 16:00-0400 SaO2% (BldA) [Mass fraction] 98 % PHYSICIAN NO [facility] 07-11-2024 16:00-0400 Systolic blood pressure 124 mm[Hg] PHYSICIAN NO [facility] 07-11-2024 13:07-0400 Body height 170.18 cm PHYSICIAN NO [facility] 07-11-2024 13:07-0400 Body temperature 98.6 [degF] PHYSICIAN NO [facility] 07-11-2024 13:07-0400 Body weight 81.25 kg PHYSICIAN NO [facility] 01-15-2024 23:37-0400 Diastolic blood pressure 80 mm[Hg] PHYSICIAN NO [facility] 01-15-2024 23:37-0400 Heart rate 68 /min PHYSICIAN NO [facility] 01-15-2024 23:37-0400 Respiratory rate 18 /min PHYSICIAN NO [facility] 01-15-2024 23:37-0400 SaO2% (BldA) [Mass fraction] 96 % PHYSICIAN NO [facility] 01-15-2024 23:37-0400 Systolic blood pressure 136 mm[Hg] PHYSICIAN NO [facility] 01-15-2024 19:53-0400 Body height 170.18 cm PHYSICIAN NO [facility] 01-15-2024 19:53-0400 Body temperature 98.3 [degF] PHYSICIAN NO [facility] 01-15-2024 19:53-0400 Body weight 80 kg PHYSICIAN NO [facility] 10-14-2023 03:58-0500 Body height 170.18 cm PHYSICIAN NO [facility] 10-14-2023 03:58-0500 Body temperature 99.1 [degF] PHYSICIAN NO [facility] 10-14-2023 03:58-0500 Body weight 75 kg PHYSICIAN NO [facility] 10-14-2023 03:58-0500 Diastolic blood pressure 99 mm[Hg] PHYSICIAN NO [facility] 10-14-2023 03:58-0500 Heart rate 97 /min PHYSICIAN NO [facility] 10-14-2023 03:58-0500 Respiratory rate 18 /min PHYSICIAN NO [facility] 10-14-2023 03:58-0500 SaO2% (BldA) [Mass fraction] 98 % PHYSICIAN NO [facility] 10-14-2023 03:58-0500 Systolic blood pressure 147 mm[Hg] PHYSICIAN NO [facility] 08-26-2023 23:03-0500 Body height 170.18 cm PHYSICIAN NO [facility] 08-26-2023 23:03-0500 Body temperature 98 [degF] PHYSICIAN NO [facility] 08-26-2023 23:03-0500 Body weight 79.37 kg PHYSICIAN NO [facility] 08-26-2023 23:03-0500 Diastolic blood pressure 96 mm[Hg] PHYSICIAN NO [facility] 08-26-2023 23:03-0500 Heart rate 76 /min PHYSICIAN NO [facility] 08-26-2023 23:03-0500 Respiratory rate 16 /min PHYSICIAN NO [facility] 08-26-2023 23:03-0500 SaO2% (BldA) [Mass fraction] 99 % PHYSICIAN NO [facility] 08-26-2023 23:03-0500 Systolic blood pressure 134 mm[Hg] PHYSICIAN NO [facility] 12-20-2022 20:53-0400 Body height 170.18 cm PHYSICIAN NO [facility] 12-20-2022 20:53-0400 Body temperature 98.1 [degF] PHYSICIAN NO [facility] 12-20-2022 20:53-0400 Body weight 77.2 kg PHYSICIAN NO [facility] 12-20-2022 20:53-0400 Diastolic blood pressure 75 mm[Hg] PHYSICIAN NO [facility] 12-20-2022 20:53-0400 Heart rate 83 /min PHYSICIAN NO [facility] 12-20-2022 20:53-0400 Respiratory rate 16 /min PHYSICIAN NO [facility] 12-20-2022 20:53-0400 SaO2% (BldA) [Mass fraction] 97 % PHYSICIAN NO [facility] 12-20-2022 20:53-0400 Systolic blood pressure 128 mm[Hg] PHYSICIAN NO [facility] 08-22-2022 22:16-0500 Body height 170.18 cm PHYSICIAN NO [facility] 08-22-2022 22:16-0500 Body temperature 97.2 [degF] PHYSICIAN NO [facility] 08-22-2022 22:16-0500 Body weight 90.9 kg PHYSICIAN NO [facility] 08-22-2022 22:16-0500 Diastolic blood pressure 84 mm[Hg] PHYSICIAN NO [facility] 08-22-2022 22:16-0500 Heart rate 86 /min PHYSICIAN NO [facility] 08-22-2022 22:16-0500 Respiratory rate 18 /min PHYSICIAN NO [facility] 08-22-2022 22:16-0500 SaO2% (BldA) [Mass fraction] 98 % PHYSICIAN NO [facility] 08-22-2022 22:16-0500 Systolic blood pressure 154 mm[Hg] PHYSICIAN NO [facility] 11-10-2019 22:26-0500 BMI (Body Mass Index) 24.7 kg/m2 FAMILY [facility] 11-10-2019 22:26-0500 Body Temperature 98.8 [degF] FAMILY [facility] 11-10-2019 22:26-0500 Body weight 71.7 kg FAMILY [facility] 11-10-2019 22:26-0500 BP Diastolic 78 mm[Hg] FAMILY [facility] 11-10-2019 22:26-0500 BP Systolic 131 mm[Hg] FAMILY [facility] 11-10-2019 22:26-0500 Height 170.18 cm [facility] 11-10-2019 22:26-0500 Pulse (Heart Rate) 76 /min [facility] 11-10-2019 22:26-0500 Pulse Oximetry 99 % [facility]ILY NO [facility] 11-10-2019 22:26-0500 Respiratory Rate 16 /min [facility] 10-19-2019 22:43-0500 BP Diastolic 58 mm[Hg] [facility] 10-19-2019 22:43-0500 BP Systolic 110 mm[Hg] [facility] 10-19-2019 22:43-0500 Pulse (Heart Rate) 75 /min [facility] 10-19-2019 22:43-0500 Pulse Oximetry 99 % [facility] NO [facility] 10-19-2019 22:43-0500 Respiratory Rate 18 /min [facility] 10-19-2019 17:47-0500 BMI (Body Mass Index) 24.8 kg/m2 FAMILY NO [facility] 10-19-2019 17:47-0500 Body Temperature 98.1 [degF] FAMILY NO [facility] 10-19-2019 17:47-0500 Body weight 72.05 kg [facility] NO [facility] 10-19-2019 17:47-0500 Height 170.18 cm FAMILY NO [facility] 10-02-2019 20:23-0500 BP Diastolic 63 mm[Hg] FAMILY NO [facility] 10-02-2019 20:23-0500 BP Systolic 131 mm[Hg] FAMILY NO [facility] 10-02-2019 20:23-0500 Pulse (Heart Rate) 79 /min [facility] 10-02-2019 20:23-0500 Pulse Oximetry 97 % [facility] NO [facility] 10-02-2019 20:23-0500 Respiratory Rate 16 /min [facility] 10-02-2019 18:13-0500 BMI (Body Mass Index) 24.5 kg/m2 FAMILY NO [facility] 10-02-2019 18:13-0500 Body Temperature 98 [degF] [facility] 10-02-2019 18:13-0500 Body weight 71.25 kg [facility] 10-02-2019 18:13-0500 Height 170.18 cm [facility] 09-06-2019 23:41-0500 BP Diastolic 76 mm[Hg] [facility] 09-06-2019 23:41-0500 BP Systolic 136 mm[Hg] [facility] 09-06-2019 23:41-0500 Pulse (Heart Rate) 109 /min [facility] 09-06-2019 23:41-0500 Pulse Oximetry 97 % [facility] 09-06-2019 23:41-0500 Respiratory Rate 20 /min [facility] 09-06-2019 21:43-0500 Body Temperature 99.4 [degF] [facility] 09-06-2019 19:08-0500 BMI (Body Mass Index) 24.5 kg/m2 [facility] 09-06-2019 19:08-0500 Body weight 71.2 kg [facility] 09-06-2019 19:08-0500 Height 170.18 cm [facility] Encounters Encounter Date Encounter Type Care Provider Facility Start: 09-24-2024 End: 09-24-2024 ambulatory PHYSICIAN NO [facility] Work Phone: Start: 09-24-2024 End: 09-24-2024 Departed Referred PHYSICIAN NO [facility] Start: 07-14-2024 End: 07-14-2024 ambulatory [facility] Start: 07-11-2024 End: 07-11-2024 Emergency department patient visit PHYSICIAN NO [facility] Work Phone: Start: 01-15-2024 End: 01-15-2024 Emergency department patient visit PHYSICIAN NO [facility] Work Phone: Start: 10-16-2023 End: 10-16-2023 ambulatory Not Available Start: 10-14-2023 End: 10-14-2023 Emergency department patient visit PHYSICIAN NO [facility] Work Phone: Start: 08-26-2023 End: 08-27-2023 Emergency department patient visit PHYSICIAN NO [facility] Work Phone: Start: 06-03-2023 End: 06-03-2023 Emergency department patient visit PHYSICIAN NO [facility] Work Phone: Start: 12-20-2022 End: 12-20-2022 Emergency department patient visit PHYSICIAN NO [facility] Work Phone: Start: 08-22-2022 End: 08-23-2022 Emergency department patient visit PHYSICIAN NO [facility] Start: 06-07-2022 End: 06-07-[address] NONE LISTED REQUEST Facility: Start: 11-10-2019 End: 11-10-2019 Emergency department patient visit FAMILY NO -Emergency Room Start: 10-19-2019 End: 10-19-2019 Emergency department patient visit FAMILY NO -Emergency Room Start: 10-02-2019 End: 10-02-2019 Emergency department patient visit FAMILY NO -Emergency Room Start: 09-06-2019 End: 09-07-2019 Emergency department patient visit FAMILY NO -Emergency Room Start: 07-26-2019 End: 07-26-2019 Emergency department patient visit FAMILY NO -Emergency Room Start: 11-11-2018 End: 11-11-2018 Emergency department patient visit FAMILY NO -Emergency Room Procedures Date Procedure Procedure Detail Performing Clinician Start: 07-11-2024 CT of abdomen and pe lvis without contrast PHYSICIAN NO FAMILY Start: 10-14-2023 Trichomonas vaginali s detection PHYSICIAN NO FAMILY Start: 08-26-2023 Bacteria identification test PHYSICIAN NO FAMILY Start: 08-26-2023 Mycology culture PHYSIC MOHAN NO FAMILY Start: 08-26-2023 Trichomonas vaginali s detection PHYSICIAN NO FAMILY Start: 08-26-2023 Urine culture PHYSICIAN NO FAMILY Start: 12-20-2022 Mycology culture PHYSIC MOHAN NO FAMILY Start: 12-20-2022 Trichomonas vaginali s detection PHYSICIAN NO FAMILY Start: 11-10-2019 Urine culture FAMILY NO Start: 10-19-2019 End: 10-19-2019 Bacteria identification test FAMILY NO Start: 10-19-2019 Diagnostic ultrasoun d of gravid uterus FAMILY NO Start: 10-19-2019 Urine culture FAMILY NO Start: 10-02-2019 End: 10-02-2019 Bacteria identification test FAMILY NO Start: 10-02-2019 Urine culture FAMILY NO Start: 09-06-2019 Diagnostic ultrasoun d of gravid uterus FAMILY NO Start: 09-06-2019 Transvaginal obstetr ic ultrasonography FAMILY NO Start: 09-06-2019 Urine culture FAMILY NO Mycology culture PHYSICIAN N O FAMILY Trichomonas vaginali s detection PHYSICIAN NO FAMILY Plan of Treatment Date Care Activity Detail Author Start: 09-24-2024 Urine culture [facility] Start: 09-24-2024 Bacteria identified in Urine by Culture Urine Culture [facility] Start: 01-15-2024 CT Abdomen and Pelvi s WO contrast [facility] Start: 01-15-2024 CT of abdomen and pe lvis without contrast CT abdomen pelvis wo con [facility] Start: 01-15-2024 Bacteria identified in Urine by Culture [facility] Start: 10-14-2023 Bacteria identified in Urine by Culture [facility] Start: 10-14-2023 Genital Culture Genital Culture [facility] Start: 10-14-2023 [facility] Start: 08-26-2023 [facility] Start: 08-26-2023 Bacteria identified in Urine by Culture [facility] Start: 12-20-2022 [facility] Start: 12-20-2022 Bacteria identified in Urine by Culture Urine Culture [facility] Start: 08-22-2022 [facility] Bacteria identified in Genital specimen by Aerobe culture [facility] Work Phone: Bacteria identified in Genital specimen by Aerobe culture [facility] Bacteria identified in Genital specimen by Aerobe culture [facility] Bacteria identified in Urine by Culture [facility] Chlamydia trachomati s DNA [Presence] in Unspecified specimen by LEV with probe detection [facility] Neisseria gonorrhoea e DNA [Presence] in Unspecified specimen by LEV with probe detection [facility] Patient referral [facility] Trichomonas vaginali s DNA [Presence] in Unspecified specimen by LEV with probe detection [facility] Immunizations Immunization Date Immunization Notes Care Provider Fa cristiana 04-28-2020 tetanus toxoid, redu julianne diphtheria toxoid, and acellular pertussis vaccine, adsorbed PHYSICIAN NO FAMILY [facility] Payers Date Payer Category Payer Self-pay [id number] 2023 Medicaid [id number] 2016 Unknown [id number] 2000 Unknown [id number] 2000 Unknown [id number] 2.16.84 [id number] 2000 Unknown [id number] 2.16.8 [id number] 1959 Unknown [id number] 1959 Unknown [id number] Unknown [id number] Insurance No Card [id number] Unknown Regular Auto/Medical [id number] Unknown [id number] 2.16.8 [id number] Unknown [id number] 2.16.8 [id number] Unknown [id number] 2.16.8 [id number] Unknown [id number] 2.16.8 [id number] Social History Date Type Detail Facility Start: 11-10-2019 End: 12-20-2022 Tobacco smoking status NHIS Never smoked tobacco (finding) [facility] Start: 2000 Sex Assigned At Female [facility] Start: 08-22-2022 End: 07-11-2024 Tobacco smoking status NHIS Smoker (finding) [facility] Start: 01-15-2024 Tobacco smoking status NHIS Current some day smoker [facility] Start: 09-26-2024 Sex Female (finding) [facility] NEGATED: Highlighted row Fir [facility] Medical Equipment Procedure Code Equipment Code Equipment Original Text Equipment Identifier Dates Cystourethroscopy FDA Start: 08-18-2018 Cystourethroscopy STENT CONTOUR 4.8FR X 22-30CM FDA Start: 08-18-2018 Cystourethroscopy STENT CONTOUR 4.8FR X 22-30CM FDA Start: 08-18-2018 Cystourethroscopy STENT CONTOUR 4.8FR X 22-30CM FDA Start: 08-18-2018 Cystourethroscopy STENT CONTOUR 4.8FR X 22-30CM FDA Start: 08-18-2018 Cystourethroscopy STENT CONTOUR 4.8FR X 22-30CM FDA Start: 08-18-2018 Cystourethroscopy STENT CONTOUR 4.8FR X 22-30CM FDA Start: 08-18-2018 Cystourethroscopy STENT CONTOUR 4.8FR X 22-30CM FDA Start: 08-18-2018 Cystourethroscopy STENT CONTOUR 4.8FR X 22-30CM FDA Start: 08-18-2018 Cystoscopy, with ureteral calculus manipulation and stent placement STENT CONTOUR 4.8FR X 22-30CM FDA Start: 06-17-2018 Cystoscopy, with ureteral calculus manipulation and stent placement STENT CONTOUR 4.8FR X 22-30CM FDA Start: 06-17-2018 Cystoscopy, with ureteral calculus manipulation and stent placement STENT CONTOUR 4.8FR X 22-30CM FDA Start: 06-17-2018 Cystoscopy, with ureteral calculus manipulation and stent placement STENT CONTOUR 4.8FR X 22-30CM FDA Start: 06-17-2018 Cystoscopy, with ureteral calculus manipulation and stent placement STENT CONTOUR 4.8FR X 22-30CM FDA Start: 06-17-2018 Cystoscopy, with ureteral calculus manipulation and stent placement STENT CONTOUR 4.8FR X 22-30CM [facility] Start: 06-17-2018 Cystoscopy, with ureteral calculus manipulation and stent placement STENT CONTOUR 4.8FR X 22-30CM FDA Start: 06-17-2018 Cystoscopy, with ureteral calculus manipulation and stent placement STENT CONTOUR 4.8FR X 22-30CM FDA Start: 06-17-2018 Cystoscopy, with ureteral calculus manipulation and stent placement STENT CONTOUR 4.8FR X 22-30CM FDA Start: 06-17-2018 Goals Date Patient Goal Desired Activity /State Clinical Note 08-17-2021 Note Date & Type Note Facility 08-17-2021 Note Education Materials Obstetrics and Gynecology Trichomoniasis Trichomoniasis is an STI (sexually transmitted infection) that can affect both women and men. In women, the outer area of the female genitalia (vulva) and the vagina are affected. In men, mainly the penis is affected, but the prostate and other reproductive organs can also be involved. This condition can be treated with medicine. It often has no symptoms (is asymptomatic), especially in men. If not treated, trichomoniasis can last for months or years. What are the causes? This condition is caused by a parasite called Trichomonas vaginalis. Trichomoniasis most often spreads from person to person (is contagious) through sexual contact. What increases the risk? The following factors may make you more likely to develop this condition: ? Having unprotected sex. ? Having sex with a partner who has trichomoniasis. ? Having multiple sexual partners. ? Having had previous trichomoniasis infections or other STIs. What are the signs or symptoms? In women, symptoms of trichomoniasis include: ? Abnormal vaginal discharge that is clear, white, palomo, or yellow-green and foamy and has an unusual fishy odor. ? Itching and irritation of the vagina and vulva. ? Burning or pain during urination or sex. ? Redness and swelling of the genitals. In men, symptoms of trichomoniasis include: ? Penile discharge that may be foamy or contain pus. ? Pain in the penis. This may happen only when urinating. ? Itching or irritation inside the penis. ? Burning after urination or ejaculation. How is this diagnosed? In women, this condition may be found during a routine Pap test or physical exam. It may be found in men during a routine physical exam. Your health care provider may do tests to help diagnose this infection, such as: ? Urine tests (men and women). ? The following in women: ? Testing the pH of the vagina. ? A vaginal swab test that checks for the Trichomonas vaginalis parasite. ? Testing vaginal secretions. Your health care provider may test you for other STIs, including HIV (human immunodeficiency virus). How is this treated? This condition is treated with medicine taken by mouth (orally), such as metronidazole or tinidazole, to fight the infection. Your sexual partner(s) also need to be tested and treated. ? If you are a woman and you plan to become or think you may be , tell your health care provider right away. Some medicines that are used to treat the infection should not be taken during . Your health care provider may recommend pcth-fjt-[id number] medicines or creams to help relieve itching or irritation. You may be tested for infection again 3 months after treatment. Follow these instructions at home: ? Take and use uyyj-jpa-[id number] and prescription medicines, including creams, only as told by your health care provider. ? Take your antibiotic medicine as told by your health care provider. Do not stop taking the antibiotic even if you start to feel better. ? Do not have sex until 7?10 days after you finish your medicine, or until your health care provider approves. Ask your health care provider when you may start to have sex again. ? (Women) Do not douche or wear tampons while you have the infection. ? Discuss your infection with your sexual partner(s). Make sure that your partner gets tested and treated, if necessary. ? Keep all follow-up visits as told by your health care provider. This is important. How is this prevented? ? Use condoms every time you have sex. Using condoms correctly and consistently can help protect against STIs. ? Avoid having multiple sexual partners. ? Talk with your sexual partner about any symptoms that either of you may have, as well as any history of STIs. ? Get tested for STIs and STDs (sexually transmitted diseases) before you have sex. Ask your partner to do the same. ? Do not have sexual contact if you have symptoms of trichomoniasis or another STI. Contact a health care provider if: ? You still have symptoms after you finish your medicine. ? You develop pain in your abdomen. ? You have pain when you urinate. ? You have bleeding after sex. ? You develop a rash. ? You feel nauseous or you vomit. ? You plan to become or think you may be . Summary ? Trichomoniasis is an STI (sexually transmitted infection) that can affect both women and men. ? This condition often has no symptoms (is asymptomatic), especially in men. ? Without treatment, this condition can last for months or years. ? You should not have sex until 7?10 days after you finish your medicine, or until your health care provider approves. Ask your health care provider when you may start to have sex again. ? Discuss your infection with your sexual partner(s). Make sure that your partner gets tested and treated, if necessary. This informatio (more content not included)... [facility] Evaluation note Note Date & Type Note Facility Evaluation note No assessment information availa [facility] Work Phone: Hospital Discharge instructions Note Date & Type Note Facility Hospital Discharge instructions Additional Instructions Do not have sexual intercourse for at least 2 weeks, this includes oral sex You need to use condoms Right all your sexual partners and their sexual partners must be treated Do not have sex again and said everyone has been treated or you will pass disease back in forth You may call [phone] for your results in 3 days Please follow-up with Dr. Aguilera office Is important that you take your antibiotic as instructed until gone Please return here if you develop any abdominal pain, vaginal bleeding, increased discharge or any other concern [facility] Work Phone: Hospital Discharge instructions Note Date & Type Note Facility Hospital Discharge instructions Additional Instructions If your symptoms return/worsen or you develop any further concerns or symptoms please see your doctor or return to the emergency department immediately. Please be sure to follow-up with the results of your tests. [facility] Work Phone: Hospital Discharge instructions Note Date & Type Note Facility Hospital Discharge instructions Additional Instructions If you end up having bacterial vaginosis or any sexually transmitted infections, we will call you and prescribe appropriate antibiotics. Follow-up with your [facility] physician for any persistent symptoms in 5 to 7 days. [facility] Work Phone: Hospital Discharge instructions Note Date & Type Note Facility Hospital Discharge instructions Additional Instructions If your symptoms return/worsen or you develop any further concerns or symptoms please see your doctor or return to the emergency department immediately. [facility] Work Phone: Summary Purpose Family History No Family History Records Found Relationship Condition Age at Onset Recorded Date/T scott Not Specified No pertinent family history Unknown Advance Directives No Advanced Directives Records Found Advance Directive Response Recorded Date/ Time Advance Directives No August 25, 2017 10:41pm Advance Directive Response Recorded Date/ Time Advance Directives No August 25, 2017 11:41pm Chief Complaint and Reason for Visit Chief Complaint lower back pain Poss yeast infection 10 wks preg - lower stomach pain urogenital Chief Complaint UTI symptoms Chief Complaint burning w urination Chief Complaint burning w urination Urogenital Chief Complaint back pain Chief Complaint poss kidney stone ba ck pain Chief Complaint Admit Date poss kidney stone back pain June 12:42pm Unknown September 24, 2024 11 :55pm Assessments No Assessments Information Available Additional Source Comments INFORMATION SOURCE (unrecogn ized section and content) DATE CREATED AUTHOR 05/23/2019 [facility] DATE CREATED AUTHOR AUTHOR'S ORGANIZ ATION 06/19/2020 [facility] DATE CREATED AUTHOR AUTHOR'S ORGANIZ ATION 09/12/2021 [facility] DATE CREATED AUTHOR AUTHOR'S ORGANIZ ATION 08/06/2022 [facility] DATE CREATED AUTHOR AUTHOR'S ORGANIZ ATION 10/18/2023 [facility] DATE CREATED AUTHOR AUTHOR'S ORGANIZ ATION 07/21/2024 [facility] DATE CREATED AUTHOR AUTHOR'S ORGANIZ ATION 10/02/2024 [facility] Care Teams (unrecognized sec tion and content) Team Status: Inactive Member Role Status Dates PHYSICIAN NO FAMILY Primary Care Provider Active Lilliam Linares DO RES Active Selena Gonzáles Jr, MD Emergency Provider Active Team Status: Active Member Role Status Dates PHYSICIAN NO FAMILY Primary Care Provider Active Team Status: Inactive Member Role Status Dates PHYSICIAN NO FAMILY Primary Care Provider Active Aura Brown APRN Emergency Provider Active Team Status: Inactive Member Role Status Dates PHYSICIAN NO FAMILY Primary Care Provider Active Elias Rogers DO Emergency Provider Active Team Status: Inactive Member Role Status Dates PHYSICIAN NO FAMILY Primary Care Provider Active Felix Simpson , Emergency Provider Active Team Status: Inactive Member Role Status Dates PHYSICIAN NO FAMILY Primary Care Provider Active Start: August 26, 2023 End: August 27, 2023 Felix Simpson DO Emergency Provider Active Start: August 26, 2023 End: August 27, 2023 Team Status: Inactive Member Role Status Dates PHYSICIAN NO FAMILY Primary Care Provider Active Start: October 14, 2023 End: October 14, 2023 Cecilio Brody , DO Emergency Provider Active Start: October 14, 2023 End: October 14, 2023 Team Status: Inactive Member Role Status Dates PHYSICIAN NO FAMILY Primary Care Provider Active Start: January 15, 2024 End: January 15, 2024 Elias Rogers DO Emergency Provider Active Sta rt: January 15, 2024 End: January 15, 2024 Team Status: Inactive Member Role Status Dates PHYSICIAN NO FAMILY Primary Care Provider Active Start: July 11, 2024 End: July 11, 2024 Felix Simpson DO Emergency Provider Active Start: July 11, 2024 End: July 11, 2024 Team Status: Inactive Member Role Status Dates Shaan Corrales DO Attending Provider Active S tart: September 24, 2024 End: September 24, 2024 Goals (unrecognized section and content) Goals may be documented in a n alternate sectionGoals may be documented in an alternate sectionGoals may be documented in an alternate sectionGoals may be documented in an alternate sectionGoals may be documented in an alternate sectionGoals may be documented in an alternate sectionGoals may be documented in an alternate sectionGoals may be documented in an alternate section FOR RECORDS PERTAINING TO PATIENTS WHO ARE OR HAVE BEEN ENROLLED IN A CHEMICAL DEPENDENCY/SUBSTANCEABUSE PROGRAM, SOME INFORMATION MAY BE OMITTED. This clinical summary was aggregated from multiple sources. Caution should be exercised in using it in the provision of clinical care. This summary normalizes information from multiple sources, and as a consequence, information in this document may materially change the coding, format and clinical context of patient data. In addition, data may be omitted in some cases. CLINICAL DECISIONS SHOULD BE BASED ON THE PRIMARY CLINICAL RECORDS. [facility] Attributor [facility]. provides no warranty or guarantee of the accuracy or completeness of information in this document.
--- NOTE | 2024-11-15 04:16 | ED_ITS ---
HPI HPI - General Adult General Chief complaint: Nausea/Vomiting/Diarrhea Stated complaint: FLU LIKE SYMPTOMS Time Seen by Provider: 11/15/24 04:04 Source: patient Mode of arrival: walk-in Limitations: no limitations History of Present Illness HPI narrative: This 24-year-old female presents for evaluation of a headache, chills, nausea and back pain. Her symptoms started around 11 PM. She took a nausea pill but states it did not help her. She was recently treated for UTI. She feels like she is going to have diarrhea but has not had any diarrhea yet. She has not vomited. She took an Azo prior to arrival for ongoing urinary symptoms. She denies the possibility of . Related Data Home Medications ?Medication ?Instructions ?Recorded ?Confirmed ketorolac 10 mg tablet 10 mg PO Q8H PRN pain 07/12/24 07/12/24 ondansetron 4 mg disintegrating 4 mg PO Q8H PRN nausea and vomiting 07/12/24 07/12/24 tablet oxycodone-acetaminophen 5 mg-325 1 tab PO Q6H PRN pain 07/12/24 07/12/24 mg tablet tamsulosin 0.4 mg capsule 0.4 mg PO Q24H 07/12/24 07/12/24 Previous Rx's ?Medication ?Instructions ?Recorded cephalexin 500 mg capsule 500 mg PO TID 7 days #21 caps 09/25/24 Allergies Allergy/AdvReac Type Severity Reaction Status Date / Time Penicillins AdvReac Mild Rash Verified 11/15/24 04:04 Opioid HPI Opioid Management Most Recent Opioid Data: Last Pain Scale 7 11/15/24 04:56 11/15/24 Last MAR Pain Assessment 11/15/24 04:56 Review of Systems ROS Status of ROS 10 or more systems reviewed and unremark able except as noted in history and below PFSH PFSH Social History Little interest or pleasure in doing things: not at all Feeling down, depressed, or hopeless: not at all Exam Narrative Exam Narrative: Vital signs and Nursing Notes reviewed: Is afebrile, she is mildly tachycardic with a pulse of 110, blood pressure is normal, she is not hypoxic with pulse ox of 97% on room air General: Awake, alert, oriented, nontoxic but mildly ill-appearing female, no respiratory distress HEENT: Normocephalic atraumatic, mucous membranes are moist and pink, eyes are clear, normal conjunctiva, vision is grossly intact, posterior pharynx is normal in appearance. Neck: Supple, no meningeal signs, no anterior or posterior cervical lymphadenopathy Chest: Lungs are clear to auscultation with good air entry, there is no wheezing rhonchi or rales appreciated no accessory muscle use, patient is speaking in complete sentences-no chest wall tenderness to palpation CVS: Regular rate and rhythm S1-S2, no murmurs rubs or gallops, pulses are brisk and equal bilaterally ABD: Soft, nondistended, nontender, no rebound guarding or rigidity, bowel sounds are normal, no pulsatile masses appreciated Extremities: Moving all extremities, no lower extremity tenderness or swelling noted, negative Homans' sign, pulses are brisk and equal bilaterally Skin: Normal in appearance without rash,pallor, petechiae or purpura Neuro: No focal deficits Constitutional Vital Signs, click to edit/add: Last Vital Signs Temp 98.8 F 11/15/24 03:59 Pulse 110 H 11/15/24 03:59 Resp 18 11/15/24 03:59 BP 129/87 11/15/24 03:59 Pulse Ox 97 11/15/24 03:59 O2 Del Method Room Air 11/15/24 03:59 Course Vital Signs Vital signs: Vital Signs Temperature 98.8 F 11/15/24 03:59 Pulse Rate 110 H 11/15/24 03:59 Respiratory Rate 18 11/15/24 03:59 Blood Pressure 129/87 11/15/24 03:59 Pulse Oximetry 97 11/15/24 03:59 Oxygen Delivery Method Room Air 11/15/24 03:59 Temperature 98.8 F 11/15/24 03:59 Pulse Rate 110 H 11/15/24 03:59 Respiratory Rate 18 11/15/24 03:59 Blood Pressure 129/87 11/15/24 03:59 Pulse Oximetry 97 11/15/24 03:59 Oxygen Delivery Method Room Air 11/15/24 03:59 Medical Decision Making [facility] Narrative Medical decision making narrative: This 24-year-old female presents for evaluation of flulike symptoms including headache, chills, nausea and abdominal cramps. She feels like she is going to vomit and have diarrhea but she has not done so yet. Her symptoms started around 11 PM last night. She states she took a nausea pill but it did not help her. She was recently treated for UTI. She took Azo prior to arrival and her urine is clear but orange with 2-5 white blood cells and 2-5 red blood cells per high-power field but negative for nitrites or leukocyte esterase.. She is negative for influenza and COVID-19. After her swabs were negative I was c oncerned that she may have a kidney infection so an IV was placed and she was medicated with IV fluids, Zofran and Toradol. She has a normal white count and hemoglobin. Electrolytes are normal. On re-evaluation, she is feeling better and starting to sweat, likely breaking her fever. She admits that her daughter was recently sick with a viral illness but did not test positive for anything. Lab Data Lab results reviewed: Yes I reviewed the patient's lab results Labs: Lab Results 11/15/24 11/15/24 11/15/24 Range/Units 04:08 04:42 04:45 WBC 9.6 (4.0-11.0) 10^3/uL RBC 4.53 (4.20-5.40) 10^6/uL Hgb 13.3 (12.0-16.0) g/dL Hct 40.5 (36.0-48.0) % MCV 89.4 (81.0-99.0) fL MCH 29.4 (26.7-34.0) pg MCHC 32.8 (29.9-35.2) g/dL RDW 14.0 (11.0-15.0) % Plt Count 281 (150-450) 10^3/uL MPV 11.0 (9.5-13.5) fL Neut % (Auto) 81.3 H (43.0-75.0) % Lymph % (Auto) 7.1 L (20.5-60.0) % [place] % (Auto) 10.5 (1.7-12.0) % Eos % (Auto) 0.5 L (0.9-7.0) % Baso % (Auto) 0.3 (0.2-2.0) % Neut # (Auto) 7.8 H (1.4-6.5) 10^3/uL Lymph # (Auto) 0.7 L (1.2-3.8) 10^3/uL Chaves # (Auto) 1.0 H (0.3-0.8) 10^3/uL Eos # (Auto) 0.1 (0.0-0.7) 10^3/uL Baso # (Auto) 0.0 (0.0-0.1) 10^3/uL Abs Immat Gran (auto) 0.03 (0.00-0.03) 10^3/uL Imm/Tot Granulo (auto) 0.3 (0.0-0.5) % Sodium 138 (136-145) mmol/L Potassium 3.8 (3.5-5.1) mmol/L Chloride 104 (98-107) mmol/L Carbon Dioxide 25.6 (21.0-32.0) mmol/L Anion Gap 12.2 BUN 14.0 (7.0-18.0) mg/dL Creatinine 0.89 (0.55-1.02) mg/dL Est GFR ( Amer) >60 (>=60 mL/min/1.73m^2) Est GFR (Non-Af Amer) >60 (>=60 mL/min/1.73m^2) BUN/Creatinine Ratio 15.7 Glucose 115 H (74-106) mg/dL Calcium 8.9 (8.5-10.1) mg/dL Total Bilirubin 0.5 (0.2-1.0) mg/dL AST 20 (15-37) U/L ALT 39 (14-59) U/L Alkaline Phosphatase 76 (46-116) U/L Total Protein 7.4 (6.4-8.2) g/dL Albumin 3.8 (3.4-5.0) g/dL Globulin 3.6 g/dL Albumin/Globulin Ratio 1.1 Urine Color Dk. orange (YELLOW) Urine Clarity Clear (CLEAR) Urine pH Color interference A (5.0-9.0) Ur Specific [place] 1.025 (1.005-1.025) Urine Protein Color interference A (NEG/TRACE) mg/dL Urine Glucose (UA) Color interference A (NEGATIVE) mg/dL Urine Ketones Color interference A (NEGATIVE) mg/dL Urine Occult Blood Color interference A (NEGATIVE) Urine Nitrite Color interference A (NEGATIVE) Urine Bilirubin Color interference A (NEGATIVE) Urine Urobilinogen Color interference A (0.2-1.0) EU/dL Ur Leukocyte Esterase Color interference A (NEGATIVE) Urine RBC 2-5 A (0-2) #/HPF Urine WBC 2-5 A (NONE SEEN) #/HPF Ur Squamous Epith Cells Few A (NONE/RARE) #/LPF Urine Crystals None seen (None Seen) #/HPF Urine Bacteria Trace A (NONE SEEN) #/HPF Urine Casts None seen (NONE SEEN) #/LPF Urine Mucus Small A (NONE SEEN) Ur Culture Indicated? No Urine HCG, Qual Negative (NEGATIVE) Influenza Type A Ag Negative Influenza Type B Ag Negative SARS-CoV-2 Ag (CV2AG) Negative (NEGATIVE) Discharge Plan Discharge Chief Complaint: Nausea/Vomiting/Diarrhea Clinical Impression: Viral upper respiratory illness, Flu-like symptoms Patient Disposition: Home, Self-Care Time of Disposition Decision: 05:37 Condition: Good Prescriptions / Home Meds: No Action ketorolac 10 mg tablet 10 mg PO Q8H PRN (Reason: pain) oxycodone-acetaminophen 5-325 mg tablet 1 tab PO Q6H PRN (Reason: pain) tamsulosin 0.4 mg capsule 0.4 mg PO Q24H ondansetron 4 mg tablet,disintegrating 4 mg PO Q8H PRN (Reason: nausea and vomiting) cephalexin 500 mg capsule 500 mg PO TID 7 Days Qty: 21 0RF Print Language: Marshallese Instructions: Viral Syndrome (ED) Referrals: Physician,Non-Staff, MD [Primary Care Provider] - 1 week
[2024-11-15 04:26] LABS: Influenza Virus A Antigen Negative; Influenza Virus B Antigen Negative; Internal Control Within Normal Limits; SARS-CoV-2 Ag NEGATIVE (NEGATIVE)
[2024-11-15 04:52] LABS: Clarity Urine CLEAR (CLEAR); Color Urine DK. ORANGE (YELLOW); Specific Gravity Urine 1.025 (1.005-1.025)
[2024-11-15 04:53] LABS: HCG Qualitative Urine* NEGATIVE (NEGATIVE); Internal Control Within Normal Limits
[2024-11-15 04:54] LABS: Bilirubin Urine COLOR INTERFERENCE (NEGATIVE); Blood Urine COLOR INTERFERENCE (NEGATIVE); Glucose Urine UA COLOR INTERFERENCE mg/dL (NEGATIVE); Ketones Urine COLOR INTERFERENCE mg/dL (NEGATIVE); Leukocyte Esterase Urine COLOR INTERFERENCE (NEGATIVE); Nitrite Urine COLOR INTERFERENCE (NEGATIVE); Protein Urine COLOR INTERFERENCE mg/dL (NEG/TRACE); Urobilinogen Urine COLOR INTERFERENCE EU/dL (0.2-1.0); pH Urine COLOR INTERFERENCE (5.0-9.0)
[2024-11-15] MEDS: KETOROLAC TROMETHAMINE 30 MG/ML VIAL IVP (04:56)
[2024-11-15] MEDS: ACETAMINOPHEN 325 MG TABLET 650 MG PO (04:56)
[2024-11-15] MEDS: ONDANSETRON PF 4 MG/2 ML VIAL IV ×2 (04:56→05:56)
[2024-11-15] MEDS: 0.9 % SODIUM CHLORIDE 1,000 ML 1000 ML IV (04:56)
[2024-11-15 05:06] LABS: Bacteria Urine TRACE #/HPF (NONE SEEN); Cast Seen? NONE SEEN #/LPF (NONE SEEN); Crystals Seen? None Seen #/HPF (None Seen); Mucus Urine SMALL (NONE SEEN); Squamous Epithelial Cell Urine FEW #/LPF (NONE/RARE); Urine Culture Indicated NO
[2024-11-15 05:12] LABS: Alanine Aminotransferase 39 U/L (14-59); Albumin Globulin Ratio 1.1; Albumin Level 3.8 g/dL (3.4-5.0); Alkaline Phosphatase 76 U/L (46-116); Anion Gap 12.2; Aspartate Amino Transferase 20 U/L (15-37); BUN Creatinine Ratio 15.7; Bilirubin Total 0.5 mg/dL (0.2-1.0); Calcium 8.9 mg/dL (8.5-10.1); Carbon Dioxide 25.6 mmol/L (21.0-32.0); Chloride 104 mmol/L (98-107); Estimated GFR (African America >60 (>=60 mL/min/1.73m^2); Estimated GFR (Non-African Ame >60 (>=60 mL/min/1.73m^2); Globulin 3.6 g/dL; Glucose 115 mg/dL (74-106); Potassium 3.8 mmol/L (3.5-5.1); Sodium 138 mmol/L (136-145); Total Protein 7.4 g/dL (6.4-8.2)
[2024-11-15 05:19] LABS: Basophils Percent Auto 0.3 % (0.2-2.0); Eosinophils Absolute Auto 0.1 10^3/uL (0.0-0.7); Eosinophils Percent Auto 0.5 % (0.9-7.0); Hematocrit 40.5 % (36.0-48.0); Hemoglobin 13.3 g/dL (12.0-16.0); Immature Granulocytes Abs Auto 0.03 10^3/uL (0.00-0.03); Immature Granulocytes Pct Auto 0.3 % (0.0-0.5); Lymphocytes Absolute Auto 0.7 10^3/uL (1.2-3.8); Lymphocytes Percent Auto 7.1 % (20.5-60.0); Mean Corpuscular HGB Conc 32.8 g/dL (29.9-35.2); Mean Corpuscular Hemoglobin 29.4 pg (26.7-34.0); Mean Corpuscular Volume 89.4 fL (81.0-99.0); Monocytes Percent Auto 10.5 % (1.7-12.0); Neutrophils Absolute Auto 7.8 10^3/uL (1.4-6.5); Neutrophils Percent Auto 81.3 % (43.0-75.0); Platelet Count 281 10^3/uL (150-450); Red Blood Count 4.53 10^6/uL (4.20-5.40); White Blood Count 9.6 10^3/uL (4.0-11.0)
[2024-11-15 05:30] LABS: Lactate/Lactic Acid 1.4 mmol/L (0.4-2.0)
[2024-11-15 07:07] VITALS: BP 121/71; PULSE 79; O2SAT 100
== END 2024-11-15 07:05 | disposition home or self-care (01) ==
PROVIDERS: Emergency Provider Emergency Medicine
DX: J06.9 Acute upper respiratory infection, unspecified (principal); R51.9 Headache, unspecified; M54.9 Dorsalgia, unspecified; R11.2 Nausea with vomiting, unspecified; R19.7 Diarrhea, unspecified
CPT/HCPCS: 36415; 80053; 81001; 83605; 84703; 85025; 87804; 87811; 96374; 96375; 96376; 99284; J1885; J2405

== ENCOUNTER 2025-04-01 16:13 | Inpatient (IN) | payer OTHER, SELFPAY ==
--- OUTSIDE RECORDS SUMMARY | 2025-03-07 07:44 | XMS_ITS | Continuity of Care Document ---
Author Organization [facility] Address [address] [facility] [place] [address] Phone Care Team Providers Care Contract Paralegal Name Role Phone Pernell WHCNP WHMEREPJanna Unavailable Unavaila ble Allergies, Adverse Reactions, Alerts Substance Reaction Status Criticality Penicillins rash Active No Information Medications Medication Instructions Dosage Effective Dates (start - stop) Status Comments metronidazole 500 mg tablet take 1 tablet by oral route BID for 7 days - Active Macrobid 100 mg capsule take 1 capsule by oral route every 12 hours with food 100 MG - Active Xulane 150 mcg-35 mcg/24 hr transdermal patch apply 1 patch by transdermal route every week 1.00 patch - Active Problems Condition Type Effective Dates (start - stop) Clini alpa Status Comments No Known Problems Procedures Procedure Date OFFICE/OUTPATIENT VISIT, EST Bp scrn perf rec interval DIAST BP < 80 MM HG SYST BP < 130 MM HG TOBACCO NON-USER URINALYSIS NONAUTO W/O SCOPE URINALYSIS NONAUTO W/O SCOPE OFFICE/OUTPATIENT VISIT, EST URINALYSIS NONAUTO W/O SCOPE OFFICE/OUTPATIENT VISIT, EST URINE TEST PREV VISIT, EST, AGE 18-39 URINALYSIS NONAUTO W/O SCOPE ROUTINE VENIPUNCTURE OFFICE/OUTPATIENT VISIT, EST OFFICE/OUTPATIENT VISIT, EST OFFICE/OUTPATIENT VISIT, EST URINALYSIS NONAUTO W/O SCOPE OFFICE/OUTPATIENT VISIT, EST OFFICE/OUTPATIENT VISIT, EST Rocephin Injection OFFICE/OUTPATIENT VISIT, EST Alcohol/drug screening PREV VISIT, EST, AGE 18-39 IMMUNIZATION ADMIN HPV 9 Valent OFFICE/OUTPATIENT VISIT, EST OFFICE/OUTPATIENT VISIT, EST SMEAR, WET MOUNT, SALINE/INK Prophylaxis Adult Topical [place] [employer] [place] Varnish 015 Panoramic Film Bitewings Four Films Comp Oral Eval New/estab Patient 2014 OFFICE/OUTPATIENT VISIT, EST OFFICE/OUTPATIENT VISIT, EST URINALYSIS NONAUTO W/O SCOPE SMEAR, WET MOUNT, SALINE/INK OFFICE/OUTPATIENT VISIT, EST SMEAR, WET MOUNT, SALINE/INK OFFICE/OUTPATIENT VISIT, EST IMMUNIZATION ADMIN HEP A VACC, PED/ADOL, 2 DOSE IMMUNIZATION ADMIN, EACH ADD H PAPILLOMA VACC 3 DOSE IM IMMUNIZATION ADMIN, EACH ADD MENINGOCOCCAL VACCINE, IM IMMUNIZATION ADMIN, EACH ADD TDAP VACCINE >7 IM IMMUNIZATION ADMIN, EACH ADD CHICKEN POX VACCINE, SC Advance Directives Directive Yes / No Effective Date File Name No Information Encounters Encounter Description Practice Location Reason(s) For Visit Diagnoses Date Provider Providers Copied on Encounter [facility], [address] [place] [address], [id number] , [place] tel: [phone] [facility] No Information 5 [facility]anna. [address] [place], [place], [id number] , [place]. tel: [phone] [facility], [address] [place] [address], [id number] , [place] tel: [phone] [facility] No Information 5 [facility] Janna. [address] [place] [address], [id number] , [place]. tel: [phone] OFFICE/OUTPA TIENT VISIT, [facility] [place], [address] [place] [address], [id number] , [place] tel: [phone] [facility] STD screen (chief complaint) Body mass index [BMI] 27.0-27.9, adultBurning with urination- STD screen- STD High risk heterosexual behavior 5 [facility]anna. [address] [place] [address], [id number] , [place]. tel: [phone] [facility], [address] [place] [address], [id number] , [place] tel: [phone] [facility] No Information 5 [facility]anna. [address] [place] [address], [id number] , [place]. tel: [phone] OFFICE/OUTPA TIENT VISIT, [facility] [place], [address] [place] [address], [id number] , [place] tel: [phone] [facility] urinary symptoms (chief complaint) vaginal discharge/ itching (chief complaint) DysuriaBody mass index [BMI] 27.0-27.9, adult- STD screen- STD High risk heterosexual behaviorProblematic vaginal discharge 5 [facility]. [address] [place] [address], [id number] , [place]. tel: [phone] OFFICE/OUTPA TIENT VISIT, [facility] [place], [address] [place], [place], [id number] , [place] tel:[phone] [facility] urinary symptoms (chief complaint) vaginal discharge/ itching (chief complaint) DysuriaGenital pruritusBody mass index [BMI] 28.0-28.9, adultBV (bacterial vaginosis)Other specified bacterial agents as the cause of diseases classified elsewhere 4 [facility]anna. [address] [place], [place], [id number] , [place]. tel:[phone] PREV VISIT, [facility], AGE 18-39 [facility], [address] [place] [address], [id number] , [place] tel: [phone] [facility] annual exam (chief complaint) Body mass index [BMI] 28.0-28.9, adultPregnancy test negative- HIV- STD screen- Well woman normal findings- STD screen High risk homosexual behaviorXulaneUrinary frequency 4 [facility]. [address] [place] [address], [id number] , [place]. tel: [phone] OFFICE/OUTPA TIENT VISIT, [facility] [place], [address] [place] [address], [id number] , [place] tel: [phone] [facility] vaginal discharge/ itching (chief complaint) Body mass index [BMI] 27.0-27.9, adult- STD screen- STD High risk heterosexual behaviorBV (bacterial vaginosis)Other specified bacterial agents as the cause of diseases classified elsewhere 3 [facility]. [address] [place] [address], [id number] , [place]. tel:[phone] OFFICE/OUTPA TIENT VISIT, [facility] [place], [address] [place] [address], [id number] , [place] tel:[phone] [facility] STD screen (chief complaint) - STD screen- STD High risk heterosexual behaviorSTD exposure 3 [facility]. [address] [place] [address], [id number] , [place]. tel: [phone] OFFICE/OUTPA TIENT VISIT, [facility] [place], [address] [place], [place], [id number] , [place] tel: [phone] [facility] vaginal discharge/ itching (chief complaint) Foul smelling vaginal dischargeBody mass index [BMI] 28.0-28.9, adult 3 [facility]. [address] [place] [address], [id number] , [place]. tel: [phone] OFFICE/OUTPA TIENT VISIT, [facility] [place], [address] [place] [address], [id number] , [place] tel: [phone] [facility] urinary symptoms (chief complaint) LUDY (chief complaint) Trichomonal vaginitisChlamydia infection- STD screenBody mass index [BMI] 28.0-28.9, adultBurning with urinationXulane 3 [facility]. [address] [place] [address], [id number] , [place]. tel: [phone] OFFICE/OUTPA TIENT VISIT, [facility] [place], [address] [place] [address], [id number] , [place] tel: [phone] [facility] vaginal discharge/ itching (chief complaint) Gonorrhea- STD screen- STD High risk heterosexual behaviorBody mass index [BMI] 28.0-28.9, adult 3 [facility]. [address] [place] [address], [id number] , [place]. tel: [phone] OFFICE/OUTPA TIENT VISIT, [facility] [place], [address] [place] [address], [id number] , [place] tel: [phone] [facility] Gonorrhea 3 [facility]. [address] [place] [address], [id number] , [place]. tel: [phone] PREV VISIT, EST, AGE 18-39 [facility], [address] [place], [place], [id number] , [place] tel: [phone] [facility] annual exam (chief complaint) Encounter for gynecological examination (general) (routine) without abnormal findingsEncounter for screening examination for other mental health and behavioral disorders- STD screen- STD High risk heterosexual behaviorBV (bacterial vaginosis)Other specified bacterial agents as the cause of diseases classified elsewhereBody mass index [BMI]30.0-30.9, adult 3 [facility]. [address] [place], [place], [id number] , [place]. tel: [phone] OFFICE/OUTPA TIENT VISIT, EST [facility], [address] [place], [place], [id number] , [place] tel: [phone] [facility] yeast infection (chief complaint) Vaginitis 5 [facility]. [address] [place], [place], [id number] , [place]. tel: [phone] [facility], [address] [place] [address], [id number] , [place] tel: [phone] [facility] Dental examination Ciro December. [address] [place], [place], [id number] , [place]. tel: [phone] [facility], [address] [place] [address], [id number] , [place] tel: [phone] [facility] Dental examination Ciro December. [address] [place], [place], [id number] , [place]. tel: [phone] OFFICE/OUTPA TIENT VISIT, EST [facility], [address] [place] [address], [id number] , [place] tel: [phone] [facility] abnormal discharge (chief complaint) Vaginitis 4 [facility]. [address] [place] [address], [id number] , [place]. tel: [phone] OFFICE/OUTPA TIENT VISIT, [facility] [place], [address] [place], [place], [id number] , [place] tel: [phone] [facility] est care (chief complaint) annual visit (chief complaint) Vaginitis 4 Pernell KARIN Saldivar. [address] [place], [place], [id number] , [place]. tel: [phone] OFFICE/OUTPA TIENT VISIT, [facility] [place], [address] [place], [place], [id number] , [place] tel: [phone] [facility] Need for prophylactic vaccination and inoculation against varicellaNeed for prophylactic vaccination and inoculation against other specified single bacterial diseaseNeed for prophylactic vaccination with combined [id number]-xi rtussis (DTP) (DTaP) vaccineNeed for prophylactic vaccination and inoculation against viralhepatitis 3 Verena Trevino. [address] [place], [place], [id number] , [place]. tel: [phone] Family History Family Member Type Diagnosis Age At Onset Brother Problem (finding) Alive and well Mother Problem (finding) Hepatitis C Paternal grandmother Problem (finding) hypertension Mother Problem (finding) Alive and well Sister Problem (finding) Alive and well Paternal grandfather Problem (finding) Father Problem (finding) Alive and well Paternal grandmother Problem (finding) Alive and well Father Problem (finding) diabetes melli tus in first degree relative Paternal grandfather Problem (finding) stroke Immunizations Vaccine Date Status Comments HPV (9-valent) administered Source: New I mmunization Record HPV administered Source: New Imm unization Record Hep A (ped/adol, 2 dose) administered Not e: Vis given for all vaccines given today.Dad declines flu today. ; Source: New Immunization Record Tdap administered Source: New Imm unization Record MCV4 (11-55 yrs) administered Source: New Immunization Record Varicella administered Source: New Imm unization Record Payers Payer name Insurance type Covered republican ID Authoriza tion(s) [place] [employer] [facility] [id number] Medicaid Wrap - [employer] [id number] [place] [facility] [id number] Medicaid Wrap - [employer] [id number] Social History Type Description Quantity Date Captured Comments Alcohol Use Details Unknown Caffeine Use Details Unknown Tobacco Use Status No Information Smoking Status No Information Sex Female Sexual Orientation Straight or heterosexual Gender Identity Female Chief Complaint And Reason For Visit No Information Reason For Referral Reason For Referral No Information Plan Of Treatment Date Type Action Status Goal Depression screening. Due on due Goal Hepatitis C screening. Due o n due Goal RLP. Due on due Goal Tdap due Goal PAP. Due on due Goal HPV. Due on due Goal Tdap Vaccine. Due on 2024 due Goal Unhealthy drug use screening . Due on due Goal Influenza vaccine. Due on due Goal PRAPARE ASSESSMENT. Due on due Goal Tdap Vaccine. Due on 2024 due Goal Depression screening. Due on due Goal PRAPARE ASSESSMENT. Due on due Goal Hepatitis C screening. Due o n due Goal Influenza vaccine. Due on due Goal HPV. Due on due Goal Unhealthy drug use screening . Due on due Goal RLP. Due on due Goal PAP. Due on due Goal Tdap due Goal HPV. Due on due Goal Hepatitis C screening. Due o n due Goal RLP. Due on due Goal Unhealthy drug use screening . Due on due Goal Tdap due Goal Tdap Vaccine. Due on 2024 due Goal PAP. Due on due Goal PRAPARE ASSESSMENT. Due on due Goal Influenza vaccine. Due on due Goal Depression screening. Due on due Goal Dietary manageme nt education, guidance, and counseling completed Goal Unhealthy drug use screening . Due on due Goal Hepatitis C screening. Due o n due Goal HPV. Due on due Goal RLP. Due on due Goal Tdap Vaccine. Due on 2024 due Goal PRAPARE ASSESSMENT. Due on due Goal PAP. Due on due Goal Depression screening. Due on due Goal Influenza vaccine. Due on due Goal Tdap due Goal PRAPARE ASSESSMENT. Due on due Goal Depression screening. Due on due Goal PAP. Due on due Goal Tdap due Goal HPV. Due on due Goal Tdap Vaccine. Due on 2024 due Goal Hepatitis C screening. Due o n due Goal Influenza vaccine. Due on Ja due Goal RLP. Due on due Goal Unhealthy drug use screening . Due on due Goal Dietary manageme nt education, guidance, and counseling completed Goal Tdap due Goal Depression screening. Due on due Goal Influenza vaccine. Due on Oc due Goal Hepatitis C screening. Due o n due Goal Tdap Vaccine. Due on 2023 due Goal RLP. Due on due Goal PRAPARE ASSESSMENT. Due on O due Goal Unhealthy drug use screening . Due on due Goal HPV. Due on due Goal PAP. Due on due Goal Dietary manageme nt education, guidance, and counseling completed Goal Unhealthy drug use screening . Due on due Goal Hepatitis C screening. Due o n due Goal Influenza vaccine. Due on due Goal Depression screening. Due on due Goal PAP. Due on due Goal Tdap Vaccine. Due on 2023 due Goal RLP. Due on due Goal Tdap due Goal HPV. Due on due Goal PRAPARE ASSESSMENT. Due on due Goal Dietary manageme nt education, guidance, and counseling completed Goal Depression screening. Due on due Goal Tdap due Goal PAP. Due on due Goal Influenza vaccine. Due on due Goal PRAPARE ASSESSMENT. Due on due Goal Tdap Vaccine. Due on 2022 due Goal RLP. Due on due Goal Dietary manageme nt education, guidance, and counseling completed Goal Tdap Vaccine. Due on 2022 due Goal PRAPARE ASSESSMENT. Due on due Goal Tdap due Goal Depression screening. Due on due Goal RLP. Due on due Goal Influenza vaccine. Due on due Goal PAP. Due on due Goal RLP. Due on due Goal Tdap due Goal Tdap Vaccine. Due on 2022 due Goal Depression screening. Due on due Goal PAP. Due on due Goal PRAPARE ASSESSMENT. Due on due Goal Influenza vaccine. Due on due Goal Dietary manageme nt education, guidance, and counseling completed Goal PRAPARE ASSESSMENT. Due on due Goal Depression screening. Due on due Goal Influenza vaccine. Due on due Goal Tdap Vaccine. Due on 2022 due Goal PAP. Due on due Goal Tdap due Goal RLP. Due on due Goal Tobacco cessation counseling completed Goal Dietary manageme nt education, guidance, and counseling completed Goal Influenza vaccine. Due on due Goal Tdap Vaccine. Due on 2022 due Goal RLP. Due on due Goal Tdap due Goal PRAPARE ASSESSMENT. Due on due Goal PAP. Due on due Goal Depression screening. Due on due Goal Dietary manageme nt education, guidance, and counseling completed Goal Depression screening. Due on due Goal Influenza vaccine. Due on due Goal Tdap due Goal PAP. Due on due Goal RLP. Due on due Goal PRAPARE ASSESSMENT. Due on due Goal Tdap due Goal RLP. Due on due Goal Influenza vaccine. Due on due Goal Depression screening. Due on due Goal PAP. Due on due Goal PRAPARE ASSESSMENT. Due on due Goal Dietary manageme nt education, guidance, and counseling completed Goal Depression screening. Due on due Goal Depression screening. Due on due Goal HPV (1st) due Goal Depression screening. Due on due Goal Tdap due Goal TD Vaccine. Due on 13 due Goal HPV (1st). Due on 3 due Appointment Beatris Andujar BOOKED History Of Present Illness Encounter Date Complaint History Of Prese nt Illness STD screen Patient c/o disc harge with burning sensation. Desires to get checked for UTI. Denies change in sexual partners urinary symptoms Presents for fo llow-up from ER visit for UTI. Patient states that she completed antibiotic treatment, but is still experiencing dysuria. Heydi Santillan RN Patient states she continue to have discomfort with urination. States she has had a change in sexual partners vaginal discharge/itching Her sy mptoms began 1 Week ago. Presently the client is experiencing vaginal itching, vaginal irritation and vaginal discharge. Color is yellow. Presently the client is not experiencing vaginal odor.The client is premenopausal. Last menstrual period was 10/05/2024. vaginal discharge/itching Her sy mptoms began 6 Days ago. Presently the client is experiencing vaginal itching, vaginal irritation and vaginal discharge. Color is yellow. Presently the client is not experiencing vaginal odor.The client is premenopausal. Last menstrual period was 06/17/2024. Additional information: Patient is here for UTI symptoms states she had a UTi in 04/13 and believes it never fully resolved. desires a different antibiotic. C/O chronic BV and also desires a different medication. may be interested in referral to vaginitis clinic in [place]. urinary symptoms annual exam Currently pregna nt: no. : 5. Parity: Term: 1. Pre-Term: 1. induced: 2. spontaneous: 1. Livin. The client states using contraceptive patch for control. Last LMP was 02/03/2024. The client does not use tobacco. The client does not drink alcohol. Additional information: Patient is here for annual exam. States she was seen at [facility] 1 month ago and had a positive miscarriage. She does not desire a , so considers it a blessing. she is currently using Xulane for BCM and was considering IUD, but has decided to stay with the Xulane. She may desire a in 1-2 years. C/O increased vaginal discharge with itching and irritation. also feels like she might have a UTI, but UA is normal. vaginal discharge/itching Her sy mptoms began 2 Months ago. Presently the patient is experiencing vaginal irritation, vaginal odor and vaginal discharge. Color is yellow. Presently the patient is not experiencing vaginal itching. The patient is premenopausal. Last menstrual period was 05/12/2023. Additional information: Patient is here due to vaginal discharge with odor. Denies Change in sexual partner. Has had a history of BV in the past. STD screen Patient states h er partner called and said he was positive for Trich and chlamydia. She desires screening and treatment. vaginal discharge/itching Her sy mptoms began 3 Days ago. Presently the patient is experiencing vaginal itching, vaginal irritation, vaginal odor and vaginal discharge. Color is yellow. The patient is premenopausal. Additional information: Patient states her LUDY was negative 2 weeks ago and then she slept with her partner without a condom and now c/o yellow discharge. Is concerned she has been reinfected. LUDY Patient c/o of U TI symptoms. she has had a UTI in the past and symptoms are the same. States she had a procedure at 10 weeks for EAB. She continue to have spotting of old blood discharge. Has not had a menses since having EAB. She does not desire a in the future and desires to use. Xulane for BCM. Denies contraindications. urinary symptoms vaginal discharge/itching Her sy mptoms began 3 Days ago. Presently the patient is experiencing vaginal odor and vaginal discharge. Color is yellow. Presently the patient is not experiencing vaginal itching and vaginal irritation. The patient is premenopausal. Additional information: Patient is here for LUDY for gonorrhea. States she is still with her partner and is unsure if got treated. Staets her symptoms resolved, but then after sex a few days ago her symptoms have returned. She has been with him for 4 years and this is not the first time he has given her an STD. Desires to check for BV as well. annual exam Currently pregna nt: no. : 3. Parity: Term: 1. Pre-Term: 1. induced: 1. Livin. The patient states she uses condoms, male for control. Last LMP was 09/12/2022. The patient does use tobacco. She does drink alcohol. Additional information: Patient is here for annual exam. C/O vaginal discharge. believe it might be BV as she has had BV several times in the past. Menses is very regular and she is using NFP and condoms to prevent . Does not desire a change in BCM. She is okay if a were to occur and she is taking a multi-vit with folic acid daily.. yeast infection Patient here tod ay with father. Patient c/o yeast infection for about 6 months now . She states medications are not helping. She is having abnormal white discharge with slight odor and itching. -RITESH ORR. Functional Status Date Functional Assessmen t No Information Instructions Date Instruction Additional Infor salvador Rapid STD screen obt ained in office today. If result is negative patient will not receive a call. If positive, [facility] will call patient within 24 hours. Patient states understanding. Encouraged to use condoms in the future to prevent STDs Related to - STD screen Urine culture sent t o lab. patient to call in 1 week for result Related to Burning with urination Dietary management e ducation, guidance, and counseling Related to Body mass index [BMI] 27.0-27.9, adult cervical cultures ob tained and sent to lab. Patient to call in 1 week for result. Stress importance of using condoms to prevent STDs in the future. Related to - STD screen Urine sent to lab fo r culture. Patient to call in 1 week for results Related to Dysuria Dietary management e ducation, guidance, and counseling Related to Body mass index [BMI] 27.0-27.9, adult Giving encouragement to exercise Related to Body mass index [BMI] 27.0-27.9, adult Discussed chronic BV in detail and vaginal culture was sent to lab. Discussed proper hygiene measures and offered referral to vaginitis clinic in [place]. Patient will call if desires referral. Rx for Clindamycin 300mg 1 capsule BID for 7 days. Encouraged to avoid sexual activity for 2 week to make sure symptoms have resolved. Related to BV (bacterial vaginosis) Urine culture sent t o lab. Patient to call in 1 week for result Related to Dysuria Giving encouragement to exercise Related to Body mass index [BMI] 28.0-28.9, adult Dietary management e ducation, guidance, and counseling Related to Body mass index [BMI] 28.0-28.9, adult Urine culture sent to lab. Relat ed to Urinary frequency Encouraged good diet noam intake, exercise and healthy lifestyle choices. Recommend daily multi-vitamin with Folic acid. Understands the need for non-violent partners in a consensual relationship. Patient does not desire a in the near future. Reviewed control options for prevention and desires to continue Xulane at this time.Desires HIV, RPR and HEp CDeclines any vaccines offered in office today Related to - Well woman normal findings Discussed BC options and patient desires to continue using Xulane. States understanding of proper use. Rx for Xulane was sent to her pharmacy. Related to Xulane HIV, RPR and Hep C d rawn and sent to lab. Patient to call in 1 week for result Related to - HIV cervical cultures ob tained and sent to lab. Patient to call in 1 week for result. Stress importance of using condoms to prevent STDs in the future. Related to - STD screen Giving encouragement to exercise Related to Body mass index [BMI] 28.0-28.9, adult Dietary management e ducation, guidance, and counseling Related to Body mass index [BMI] 28.0-28.9, adult Cervical cultures se nt to lab. Patient to call in 1 week for results Related to - STD screen Discussed possible B V in detail. Rx for flagyl 500mg BID for 7 days was sent to her pharmacy. Encouraged to call in 1 week for results. Related to BV (bacterial vaginosis) Giving encouragement to exercise Related to Body mass index [BMI] 27.0-27.9, adult Dietary management e ducation, guidance, and counseling Related to Body mass index [BMI] 27.0-27.9, adult Due to positive expo sure to Trich and Chlamydia will treat patient today. Rx for flagyl 500mg 1 tablet BID for 7 days and Zithromax 1gm PO today was sent to her pharmacy. Stressed importance of using condoms to prevent STDs. Condoms were given to patient in office today. Related to STD exposure Cervical cultures se nt to lab. Patient to call in 1 week for results Related to - STD screen Cervical cultures se nt to lab. Patient to call in 1 week for results Related to Foul smelling vaginal discharge Dietary management e ducation, guidance, and counseling Related to Body mass index [BMI] 28.0-28.9, adult Giving encouragement to exercise Related to Body mass index [BMI] 28.0-28.9, adult Discussed Xulane in detail to include proper use. Patient states understanding. Rx for 3 patches and 10 refills was sent to her pharmacy. Related to Xulane Possible UTI. Urine culture sent to lab. patient to call in 1 week for result. Rx for macrobid was sent to her pharmacy. Related to Burning with urination Cervical cultures se nt to lab. Patient to call in 1 week for results. Stressed importance of using condoms to prevent STds. Reassurance everything appears to be normal post- . Encouraged to monitor spotting and keep track of when menses re-occurs. Encouraged to use Xulane properly to prevent in the future. Related to - STD screen Giving encouragement to exercise Related to Body mass index [BMI] 28.0-28.9, adult Dietary management e ducation, guidance, and counseling Related to Body mass index [BMI] 28.0-28.9, adult Cervical cultures se nt to lab. Patient to call in 1 week for results. Stressed importance of using a condoms. Related to - STD screen Dietary management e ducation, guidance, and counseling Related to Body mass index [BMI] 28.0-28.9, adult Giving encouragement to exercise Related to Body mass index [BMI] 28.0-28.9, adult Discussed BV in deta il to include proper hygiene measures. Rx for flagyl 500mg 1 BID for 7 days. Related to BV (bacterial vaginosis) Cervical cultures se nt to lab. Patient to call in 1 week for results Related to - STD screen Encouraged monthly B SE. Recommend calcium 1000mg QD. Encouraged good dietary intake and exercise. Laboratory specimens sent to lab. Patient to call in 2 weeks if desires results.Discussed control options and patient desires NFP and condoms Related to Encounter for gynecological examination (general) (routine) without abnormal findings Dietary management e ducation, guidance, and counseling Related to Body mass index [BMI] 30.0-30.9, adult Giving encouragement to exercise Related to Body mass index [BMI] 30.0-30.9, adult Reassurance given th at wet prep is normal and all anatomy appears normal on exam. No large amount of vaginal discharge noted on exam. Wet prep is very normal with large amounts of lactobacilis. Encouraged to continue Nystatin cream and triamcinolone. If s/s persist patient may come see Dr. Albarado for further evaluation Related to Vaginitis Assessments Type Assessment Date No Information Patient Care Teams Name Effective Dates (start - stop) Status Members No Information
--- OUTSIDE RECORDS SUMMARY | 2025-03-16 04:30 | XMS_ITS ---
Author Organization [facility] Servic es Address [address] [place] [address] Care Team Providers Care Chaplain Resident Name Role Phone Shad Alamo Primary Care Provider REASON FOR VISIT Miscarriage Encounters Encounter Location Date Provider Diagnosis [facility] [address] [facility] [place] [address] 03/16/2025 Shad Alamo Plan Of Treatment Next Appt Details Provider Name:Shad soares, 04/14/2025 04:45:00 PM, [address] [place], [address], Progress Notes * CONSTANZA MACK TDOB:[birth year] (24 yo F)Acc No.[id number]:03/16/2025 Progress Note Patient: CONSTANZA RAMIREZ .1 Provider: Janel Alamo :2000 A ge:24 Y S ex:Female Date:03/16/2025 [address] [id number] Subjective: * Chief Complaints: * 1 . Miscarriage. * Medical History: Objective: * Vitals: Assessment: Plan: * Treatment: Care Plan: * Problems: * Images: * Electronic signature of Boom Alamo DO on 04/01/2025 at 04:19 PM EDT Sign off status: Pending * Provider: Janel Alamo Date: 0 03/16/2025 Generated for Printi ng/Faxing/eTransmitting on: 0 04/01/2025 04:19 PM EDT
--- OUTSIDE RECORDS SUMMARY | 2025-03-17 07:15 | XMS_ITS ---
Author Organization [facility] Servic es Address [address] [place] [address] Care Team Providers Care Voting Machine Mechanic Name Role Phone Shad Alamo Primary Care Provider [phone] REASON FOR VISIT MISCARRIAGE Encounters Encounter Location Date Provider Diagnosis [facility] [address] [facility] [address] 03/17/2025 Shad Alamo Plan Of Treatment Next Appt Details Provider Name:Shad soares, 04/14/2025 04:45:00 PM, [address] [place], [address], Progress Notes * CONSTANZA MACK TDOB:[birth year] (24 yo F)Acc No.[id number]:03/17/2025 Progress Note Patient: CONSTANZA RAMIREZ .1 Provider: Janel Alamo :2000 A ge:24 Y S ex:Female Date:03/17/2025 [address] [facility] Subjective: * Chief Complaints: * 1 . MISCARRIAGE. * Medical History: Objective: * Vitals: Assessment: Plan: * Treatment: Care Plan: * Problems: * Images: * Electronic signature of Boom Alamo DO on 04/01/2025 at 04:19 PM EDT Sign off status: Pending * Provider: Janel Alamo Date: 0 03/17/2025 Generated for Printi ng/Faxing/eTransmitting on: 0 04/01/2025 04:19 PM EDT
--- OUTSIDE RECORDS SUMMARY | 2025-03-21 13:00 | XMS_ITS | Encounter Summary ---
Author Organization [facility] Address [address] [place] [place] [address] Care Team Providers Care Route Delivery Service Driver Name Role Phone Ivy Corbin Mague RIM FIRE PRIMING TOOL SETTER Unavailable [phone] Reason for Referral * Rehabilitation - Outpatient (Routine) - Authorized Specialty Diagnoses / Procedures Referred By Yodit mckeon Referred To Contact Physical Therapy Diagnoses Closed fracture of proximal end of right fibula, unspecified fracture morphology, initial encounter Procedures [place] OFFICE/OUTPATIENT [facility] HIGH MDM 60 MINUTES Rowdy Catsellano DPM [address] [address] Phone: tel: fax: Meaghan Young PT Referral ID Status Reason Start Date Expiration Date Visits Requested Visits Authorized [id number] Authorized Specialty Services Required 03/21/2025 09/17/2025 30 30 Reason for Visit * Reason Comments Foot/ankle Fracture Encounter Details Date Type Department Care Team (Late st Contact Info) Description 03/21/2025 1:00 PM EDT Office Visit [facility] [address] [place] [address] Rowdy Castellano DPM [address] [address] Closed fracture of proximal end of right fibula, unspecified fracture morphology, initial encounter (Primary Dx) Social History Tobacco Use Types Packs/Day Years Used Date Smoking Tobacco: Never Smokeless Tobacco: Never Tobacco Cessation:Counseling Given: Yes Alcohol Use Standard Drinks/Week Comments Not Currently 0 (1 standard drink = 0.6 oz pure alcohol) Caffiene Intake- Pt reports none due to chronic kidney stones Comments No Sex and Gender Information Value Date Recorded Sex Assigned at Not on file Legal Sex Female 6:35 PM EDT Gender Identity Not on file Sexual Orientation Not on file Occupation Industry Job Start Date Job End Date Not on file Not on file Not on file Not on file documented as of this encounter Last Filed Vital Signs Vital Sign Reading Time Taken Comments Blood Pressure - - Pulse - - Temperature - - Respiratory Rate 18 03/21/2025 1:10 PM EDT Oxygen Saturation - - Inhaled Oxygen Concentration - - Weight 79.4 kg (175 lb) 03/21/2025 1:10 PM EDT Height 170.2 cm (5' 7 ) 03/21/2025 1:10 PM EDT Body Mass Index 27.41 03/21/2025 1:10 PM EDT documented in this encounter Progress Notes * Rowdy Castellano, DPM - 03/21/2025 1:00 PM EDT Patient: Beatris Andujar : 2000 PCP: No primary care provider on file. SUBJECTIVE This is a 24 y.o. female that presents today for a chief complaint of right ankle fracture diagnosed that [facility]. Patient has been weight-bearing for the past 3 weeks and states she has diminished pain at this time at a 5/10 and was not wearing a posterior splint and weight-bearing on today'svisit. She has had crutches in the past but does not knew how to use them Positive history of anxiety as well as kidney stones Allergies: Allergies Allergen Reactions Penicillins Hives Past Medical History: Past Medical History: Diagnosis Date Anxiety and depression 01/2025 BV (bacterial vaginosis) Pt reports chronic BV for approximatley 2 years Vaccine for VZV (varicella-zoster virus) In Childhood Medications: Current Outpatient Medications: ferrous sulfate (Fe Tabs) 325 (65 Fe) MG EC tablet, Take 1 tablet (325 mg) by mouth in the morning and 1 tablet (325 mg) at noon and 1 tablet (325 mg) in the evening. Take with meals. Do not crush, chew, or split., Disp: 90 tablet, Rfl: 11 hydrOXYzine HCl (Atarax) 25 MG tablet, Take by mouth, Disp: , Rfl: Vit-Fe Fumarate-FA ( PO), Take by mouth, Disp: , Rfl: sertraline (Zoloft) 50 MG tablet, Take by mouth Daily, Disp: , Rfl: Social History: Social History Socioeconomic History Marital status: Unmarried Spouse name: Not on file Number of children: 1 Years of education: Not on file Highest education level: Not on file Occupational History Comment: Unemployed Tobacco Use Smoking status: Never Smokeless tobacco: Never Vaping Use Vaping status: Former Substance and Sexual Activity Alcohol use: Not Currently Comment: Caffiene Intake- Pt reports none due to chronic kidney stones Drug use: Not Currently Sexual activity: Yes Partners: Male control/protection: None Other Topics Concern Not on file Social History Narrative Not on file Social Drivers of Health Financial Resource Strain: Not on file Food Insecurity: Not on file Transportation Needs: Not on file Physical Activity: Not on file Stress: Not on file Social Connections: Not on file Intimate Partner Violence: Not on file Housing Stability: Not on file ROS: General: denies fever, chills, fatigue, malaise Gastrointestinal: denies abdominal pain, ulcers, or changes in appetite or bowel habits Musculoskeletal: denies arthritis, denies loss of strength, pain to hip, knees, back Cardiovascular: denies CP, palpitations, irregular rhythms OBJECTIVE LE EXAM: DERM: Positive hair growth to b/l feet with good skin turgor noted. Negative openings in skin VASC: Palpable pedal pulsed b/l with warm to cool tibia to toes b/l NEURO: Gross sensation intact digits 1-10 and b/l feet ORTHO: +5/5 DF/PF/IN/EV right, +5/5 DF/PF/IN/EV left. 20 degrees inversion and 10 degrees eversion STJ b/l. Ankle ROM less than 10 degrees b/l. Positive pain on palpation to lateral distal right fibular region XRAY: XR ankle 3+ views right Imaging Result: Right distal fibular oblique fracture with slight posterior displacement and slight shortening XR foot 1 or 2 views right Imaging Result: Negative fractures identified normal foot morphology US: ASSESSMENT 1. Closed fracture of proximal end of right fibula, unspecified fracture morphology, initial encounter PLAN Reviewed x-rays today with patient Pt dispensed pneumatic CAM walker ([id number]) today to maintain 90 degree foot to ankle position. Pt informed to only remove walker when at rest or bathing. ABN signed and in chart for device if warranted. The boot was assembled and adjusted liner and straps and pneumatically inflated for proper customfitting by Rowdy Castellano DPM and staff. A verbal order was given for dispensing of device. The rachel ent is ambulatory and may benefit functionally from this device. It may be used for the following conditions as noted per medical diagnosis. Discussed conservative and surgical treatment options for patient today including postoperative time frame and surgical procedure in detail. Patient may continue with conservative treatments including [id number] anti- inflammatories and other treatments suggested today. Patient may want to be s cheduled for surgical intervention in the near future. Patient be scheduled in the near future for right fibular ORIF of fracture Rowdy Castellano DPM documented in this encounter Plan of Treatment Upcoming Encounters Date Type Department Care Team (Late st Contact Info) Description 04/05/2025 2:50 PM EDT Office Visit [facility] [address] [place] [address] Rowdy Castellano DPM [address] [facility] [address] [place] [address] 04/12/2025 1:15 PM EDT Office Visit [facility] [address] [place] [phone] Anuja Aguilera MD [address] [facility] [address] [place] [address] Scheduled Referrals Name Type Priority Associated Diagnoses Orde r Schedule Ambulatory referral to Physical Therapy Outpatient Referral Routine Closed fracture of proximal end of right fibula, unspecified fracture morphology, initial encounter Expected: 03/21/2025 (Approximate), Expires: 09/21/2025 documented as of this encounter Procedures Procedure Name Priority Date/Time Associated Diagnosis Comments XR FOOT 1-2 VIEWS RIGHT Routine 03/21/2025 1:08 PM EDT Closed fracture of proximal end of right fibula, unspecified fracture morphology, initial encounter XR ANKLE 3+ VIEWS RIGHT Routine 03/21/2025 1:08 PM EDT Closed fracture of proximal end of right fibula, unspecified fracture morphology, initial encounter documented in this encounter Results * XR ankle 3+ views right (03/21/2025 1:08 PM EDT) Anatomical Region Laterality Modality Lower Extremities, Ankle Right Radiogr aphic Imaging Narrative 03/21/2025 1:09 PM EDT Imaging Result: Right distal fibular oblique fracture with slight posterior displacement and slight shortening Rowdy Castellano DPBrayan IMG XR PROCEDURES Final Res ult * XR foot 1 or 2 views right (03/21/2025 1:08 PM EDT) Anatomical Region Laterality Modality Lower Extremities, Foot Right Radiogra phic Imaging Narrative 03/21/2025 1:09 PM EDT Imaging Result: Negative fractures identified normal foot morphology Rowdy Castellano DPBrayan IMG XR PROCEDURES Final Res ult documented in this encounter Visit Diagnoses Diagnosis Closed fracture of proximal end of right fibula, unspecified fracture morphology, initial encounter- Primary Closed fracture of proximal end of right fibula, unspecified fracture morphology, initial encounter- Primary documented in this encounter Care Teams Route Delivery Service Driver Relationship Specialty Start Date End Date Ivy Corbin, ELI [address] [place] [address] PCP - [facility] 03/21/24 documented as of this encounter
--- OUTSIDE RECORDS SUMMARY | 2025-03-21 13:10 | XMS_ITS | Encounter Summary ---
Author Organization [facility] Address [address] [place] [address] Care Team Providers Care Fingerprint Technician Name Role Phone Ivy Corbin LAW LIBRARIAN Unavailable [phone] Encounter Details Date Type Department Care Team (Late Contact Info) Description 03/21/2025 1:10 PM EDT Ancillary Procedure [facility] [address] [place] [address] Social History Tobacco Use Types Packs/Day Years Used Date Smoking Tobacco: Never Smokeless Tobacco: Never Alcohol Use Standard Drinks/Week Comments Not Currently [...] on file documented as of this encounter Plan of Treatment Upcoming Encounters Date Type Department Care Team (Late st Contact Info) Description 04/05/2025 2:50 PM EDT Office Visit [facility] [address] [place] [address] Rowdy Castellano DPM [address] [facility] [address] [place] [address] 04/12/2025 1:15 PM EDT Office Visit [facility] [address] [facility] [address] [place] [address] Anuja Aguilera MD [address] [facility] [address] [place] [address] documented as of this encounter Procedures Procedure Name Priority Date/Time Associated Diagnosis Comments XR FOOT 1-2 VIEWS RIGHT Routine 03/21/2025 1:08 PM EDT Closed fracture of proximal end of right fibula, unspecified fracture morphology, initial encounter documented in this encounter Results * XR foot 1 or 2 views right (03/21/2025 1:08 PM EDT) Anatomical Region Laterality Modality Lower Extremities, Foot Right [facility] Narrative 03/21/2025 1:09 PM EDT Imaging Result: Negative fractures identified normal foot morphology us Rowdy Castellano DPM IMG XR PROCEDURES Final Res ult documented in this encounter Visit Diagnoses Not on filedocumented in this encounter Care Teams Fingerprint Technician Relationship Specialty Start Date End Date Ivy Corbin, LAW LIBRARIAN [address] [place] [address] PCP - [facility] 03/21/24 documented as of this encounter
--- OUTSIDE RECORDS SUMMARY | 2025-03-21 13:15 | XMS_ITS | Encounter Summary ---
Author Organization [facility] Address [address] [place] [address] Care Team Providers Care [employer] Forces Communications Sergeant Name Role Phone Ivy Corbin BARGE LOADER Unavailable [phone] Encounter Details Date Type Department Care Team (Late Contact Info) Description 03/21/2025 1:15 PM EDT Ancillary Procedure [facility] [address] [place] [address] Social History Tobacco Use Types [...] EDT Office Visit [facility] [address] [place] [address] Rowdy Castellano DPM [address] [facility] [address] [place] [address] 04/12/2025 1:15 PM EDT Office Visit [facility] [address] [facility] [address] [place] [address] Anuja Aguilera MD [address] [facility] [address] [place] [address] documented as of this encounter Procedures Procedure Name Priority Date/Time Associated Diagnosis Comments XR ANKLE 3+ VIEWS RIGHT Routine 03/21/2025 [...] with slight posterior displacement and slight shortening us Rowdy Castellano DPM IMG XR PROCEDURES Final Res ult documented in this encounter Visit Diagnoses Not on filedocumented in this encounter Care Teams [employer] Communications Sergeant Relationship Specialty Start Date End Date Ivy Corbin, BARGE LOADER [address] [place] [id number] PCP - [facility] 03/21/24 documented as of this encounter
--- OUTSIDE RECORDS SUMMARY | 2025-03-22 05:30 | XMS_ITS ---
Author Organization [facility] Address [address] [place] [address] Care Team Providers Care Knock Out Hand Name Role Phone Shad Alamo Primary Care Provider Sheri Huang [phone] REASON FOR VISIT foot surgery Encounters Encounter Location Date Provider Diagnosis [facility] [address] [place] [address] 03/22/2025 Sheri Huang Plan Of Treatment Next Appt Details Provider Name:Shad soares, 04/14/2025 04:45:00 PM, [address] [facility] [place], [address], Progress Notes * CONSTANZA MACK TDOB:[birth year] (24 yo F)Acc No.[id number]:03/22/2025 Progress Notes Patient: CONSTANZA RAMIREZ .1 Provider: GUERA Palacios :2000 A ge:24 Y S ex:Female Date:03/22/2025 [address] [place] Pcp:Shad Alamo Subjective: * Chief Complaints: * 1 . Foot surgery. * Medical History: Objective: * Vitals: Assessment: Plan: * Treatment: Care Plan: * Problems: * Images: * Electronic signature of Talia Huang CNP on 04/01/2025 at 04:20 PM EDT Sign off status: Pending * Provider: GUERA Palacios Date: 0 03/22/2025 Generated for Varun pan/Cris/Navin on: 0 04/01/2025 04:20 PM EDT
--- OUTSIDE RECORDS SUMMARY | 2025-03-27 11:10 | XMS_ITS | Encounter Summary ---
Author Organization [facility] Address [address] [place] [address] Care Team Providers Care Steam Flattener Name Role Phone Ivy Corbin HEALTHCARE ACCOUNT MANAGER Unavailable [phone] Unallocated, Noms Provider MD Primary Care Provi ashley Reason for Visit * Reason Comments Consent Or Instructions preop Encounter Details Date Type Department Care Team (Late st Contact Info) Description 03/27/2025 11:10 AM EDT Office Visit [facility] [address] [place] [address] Rowdy Castellano, HANNA [address] [address] Closed fracture of proximal end [...] - Temperature - - Respiratory Rate 18 03/27/2025 11:07 AM EDT Oxygen Saturation - - Inhaled Oxygen Concentration - - Weight 79.4 kg (175 lb) 03/27/2025 11:07 AM EDT Height 170.2 cm (5' 7 ) 03/27/2025 11:07 AM EDT Body Mass Index 27.41 03/27/2025 11:07 AM EDT documented in this encounter Progress Notes * Rowdy Castellano, HANNA - 03/27/2025 11:10 AM EDT Patient: Beatris Andujar : 2000 PCP: No primary care provider on file. SUBJECTIVE This is a 24 y.o. female that presents today for a chief complaint of right ankle fracture diagnosed that [facility]. Patient has been weight-bearing for the past 4 weeks and states she has diminished pain at this time at a 5/10. Pt presents for preop for right ORIF fibular fx. Patient continues weight-bearing against medical advice Positive history of anxiety as well as [...] back Cardiovascular: denies CP, palpitations, irregular rhythms Physical examination: Cardiovascular: +S1/S2 with negative gallops, rubs, or murmur Lungs: Clear to auscultation, with negative rhonchi, wheezes, or stridor OBJECTIVE LE EXAM: DERM: Positive hair growth [...] fibula, unspecified fracture morphology, initial encounter PLAN Patient given prescription for pain medication to be taken postoperatively. Decision for surgery today and patient cleared from a podiatric/ medical standpoint for surgery and to proceed with surgery. Pt had apre op H/P p today for medical clearance for surgery and will be reviewed along with labs prior to surgery. Pt scheduled for a ORIF right fibular fracture Discussed with the patient the nature of condition and operative vs nonoperative care. The surgicalplans, risks, alternatives, benefits, post op complications and exterminator helper expectations were discussed including but not limited to: infection,bone infection,wound dehiscence hardware failure and irritation,wound dehiscence,delay union/mal union/non union of bone. RSDS,neuroma,duty limitations,DVT/PE, [place],nerve damage, scar, loss of sensation, swelling. Pt understands the proposed sx in detail and has agreed with proposed surgery. No guarantees were given or implied. Pt willingly consents to procedure and to have surgical procedure. Pt also understands risks including COVID-19 current risk in a surgical setting. Pt is a low acceptable risk for outpatient surgery from a podiatric/medical standpoint with an ASA of a 2. Rowdy Castellano DPM, FACFAS H&P up to date and current (date) Date: March 27, 2025 Rowdy Castellano DPM documented in this encounter Plan of Treatment Upcoming Encounters Date Type Department Care Team (Late st Contact Info) Description 04/05/2025 2:50 PM EDT Office Visit [facility] [address] [place] [id number] Rowdy Castellano DPM [address] [facility] [address] [place] [address] 04/12/2025 1:15 PM EDT Office Visit [facility] [address] [facility] [address] [place] [address] Anuja Aguilera MD [address] [facility] [address] [place] [address] documented as of this encounter Visit Diagnoses Diagnosis Closed fracture of proximal end of right fibula, unspecified fracture morphology, initial encounter- Primary Closed fracture of proximal end of right fibula, unspecified fracture morphology, initial encounter- Primary documented in this encounter Care Teams Steam Flattener Relationship Specialty Start Date End Date vIy Corbin, HEALTHCARE ACCOUNT MANAGER [address] [place] [address] PCP - [facility] 03/21/24 Unallocated, Noms MD Bianca [address] [place] [address] PCP - General Family Medicine 03/22/25 documented as of this encounter
--- OUTSIDE RECORDS SUMMARY | 2025-04-01 16:18 | XMS_ITS | Encounter Summary ---
Author Organization [facility] Address [address] [place] [address] Care Team Providers Care Waiter And Cashier Name Role Phone Ivy Corbin KNITTED GARMENT FINISHER Unavailable Unallocated, Noms Provider Primary Care Provi ashley Encounter Details Date Type Department Care Team (Late Contact Info) Description 03/09/2025 Abstract [facility] [address] [place] [phone] Rowdy Castellano DPM [address] [address] Social History Tobacco Use Types Packs/Day Years [...] EDT Office Visit [facility] [address] [place] [phone] Rowdy Castellano DPM [address] [address] 04/12/2025 1:15 PM EDT Office Visit [facility] [address] [place] [address] Anuja Aguilera MD [address] [facility] [address] [place] [address] documented as of this encounter Visit Diagnoses Not on filedocumented in this encounter Care Teams Waiter And Cashier Relationship Specialty Start Date End Date Ivy Corbin, KNITTED GARMENT FINISHER [address] [facility] [address] [place] [address] PCP - [facility] 03/21/24 Unallocated, Noms Provider, [address] [place] [address] PCP - General Family Medicine 03/22/25 documented as of this encounter
--- OUTSIDE RECORDS SUMMARY | 2025-04-01 16:18 | XMS_ITS | Encounter Summary ---
Author Organization [facility] Address [address] [place] [address] Care Team Providers Care Jewelry Model Maker Name Role Phone Ivy Corbin CONTENT ENGINEER Unavailable Unallocated, Noms Provider MD Primary Care Provi ashley Encounter Details Date Type Department Care Team (Late Contact Info) Description 03/01/2025 Abstract [facility] [address] [facility] [address] [place] [phone] Anuja Aguilera MD [address] [facility] [address] [place] [address] Social History Tobacco Use Types Packs/Day Years Used Date Smoking Tobacco: Never Smokeless Tobacco: Never Alcohol Use Standard Drinks/Week Comments Not Currently 0 (1 standard drink = 0.6 oz pure alcohol) Caffiene Intake- Pt reports none due to chronic kidney stones Comments Yes Sex and Gender Information Value Date Recorded [...] EDT Office Visit [facility] [address] [place] [address] Rowdy Castellano DPM [address] [facility] [address] [place] [address] 04/12/2025 1:15 PM EDT Office Visit [facility] [address] [facility] [address] [place] [address] Anuja Aguilera MD [address] [facility] [address] [place] [address] documented as of this encounter Visit Diagnoses Not on filedocumented in this encounter Care Teams Jewelry Model Maker Relationship Specialty Start Date End Date Ivy Corbin, CONTENT ENGINEER [address] [facility] [address] [place] [address] PCP - [facility] 03/21/24 Unallocated, Noms Provider, [address] [place] [address] PCP - General Family Medicine 03/22/25 documented as of this encounter
--- OUTSIDE RECORDS SUMMARY | 2025-04-01 16:18 | XMS_ITS | CCD ---
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 thyroid [address] [place] [address] Ultrasound Report Signed Patient: Beatris Mack MR#: [id number] 549 : 2000 Acct:[id number] Age/Sex: 24 / F ADM Date: 03/23/25 Loc: Room: Type: [facility] Attending Dr: Shad Alamo DO Ordering Provider: Shad Alamo DO Date of Service: 03/23/25 US/US thyroid: Decreased thyroid stimulating hormone (TSH) level Copies to: Shad Alamo DO Thyroid Ultrasound HISTORY: Decreased TSH level. COMPARISON: None The RIGHT lobe measures 5.1 x 2.0 x 2.2cm. LEFT lobe measures 4.8 x 1.4 x 1.7 cm. Isthmus has an AP dimension of 0.2cm. Right mid anechoic nodule with echogenic focus measures up to 6 mm. Left superior anechoic nodule with echogenic focus measures up to 3 mm.. No microcalcifications identified. Symmetric blood flow of the thyroid gland identified. US/US thyroid IMPRESSION: Subcentimeter anechoic thyroid nodules. Impression dictated by: Shaan Bojorquez M.D. 03/23/2025 4:40 PM Dictation Location: [place] [address] Tech: Renetta Beck Transcribed By: RADHA 03/23/25 1640 Dictated By: Shaan Bojorquez DO 03/23/25 1634 Signed By: 03/23/25 1640 Normal [facility] Choriogonadotropin.beta subu nit [Units/volume] in Serum or PlasmaOrdered By: THANH Saab on 03-21-2025 HCG.beta subunit Qn 22.13 m[IU]/mL [facility] Comment on above: Approximate Approxim ate hCG Gestational Age Range (mIU/ml) (weeks)0.2-1 5-50 1-2 50-500 2-3 100-5,000 3-4 500-10,000 4-5 1,000-50,000 5-6 10,000-100,000 6-8 15,000-200,000 8-12 10,000-100,000 HCG,Quantitativeon 5 HCG,Quantitative 22.13 m[iU]/mL Normal [facility] Comment on above: Result Comment: Appr oximate Approximate hCG Gestational Age Range (mIU/ml) (weeks) 0.2-1 5-50 1-2 50-500 2-3 100-5,000 3-4 500-10,000 4-5 1,000-50,000 5-6 10,000-100,000 6-8 15,000-200,000 8-12 10,000-100,000 PERFORMED BY: [place] [id number] PATHOLOGIST THERMOPLASTIC TECHNICIAN CALLI JAFFE M.D. Performed By: #### H CGQNT #### [address] No Panel Informationon 03-21 Radiology Study observation (narrative) [facility] XR Ankle - right 3 [facility] 0 03-21-2025 Imaging Result: Right distal fibular oblique fracture with slight posterior displacement and slight shortening [facility] XR Foot - right 2 [facility] Imaging Result: Negative fractures identified normal foot morphology [facility] XR ankle RT min 3V*on 2024 XR ankle RT min 3V* [facility] [place] [address] [place] [address] XRay Report Signed Patient: Beatris Mack MR#: [id number] 549 : 2000 Acct:[id number] Age/Sex: 24 / F ADM Date: 03/02/25 Loc: ER Room: Type: [facility] ER Attending Dr: Copies to: Brock Mims APRN Ordering Provider: Brock Mims APRN Date of Service: 03/02/25 XR/XR ankle RT min 3V*: Extremity Injury, Lower 3 views of the right ankle INDICATION: Right ankle pain status post fall pain in the lateral aspect. COMPARISON: None FINDINGS: There is an oblique fracture involving the lateral malleolus/distal fibula. No significant widening the interval. Talar dome is intact. No additional fractures identified there is moderate soft tissue swelling overlying the lateral malleolus. XR/XR ankle RT min 3V* IMPRESSION: Obliquely oriented fracture through the lateral malleolus. Impression dictated by: Kevin Sullivan M.D. 03/02/2025 5:34 PM Dictation Location: [facility]- Transcribed By: RADHA 03/02/25 173 Dictated By: Kevin Sullivan MD 03/02/251732 Signed By: 03/02/251733 Normal [facility]28[facility] Comment on above: See report. Scanned copy available in EMR. FASTING.[facility] Test Name: DRUG SCREEN 17 W/CONF TEST#[id number] [facility] HEPATITIS B SURFACE ANTIGEN (FR)on 02-24-2025 HBSAG SCREEN Negative Negative [facility] Comment on above: Performed at: [address] [id number] Scout Sniper: Shai Marmolejo PhD, Phone: [phone] Hcv antibody rfx to quant pc luis alfredo 02-24-2025 HEPATITIS C VIRUS ANTIBODY Non-Reactive Non Reactive [facility] INTERPRETATION HEPATITIS C Comment . [facility] Comment on above: Not infected with HC V unless early or acute infection is suspected (which may be delayed in an immunocompromised individual), or other evidence exists to indicate HCV infection. No Panel Informationon 02-24 FASTING.[facility] Choriogonadotropin.beta subu nit [Units/volume] in Serum or PlasmaOrdered By: THNAH Saab on 02-23-2025 HCG.beta subunit Qn Choriogonadotropin.b et a subunit [Units/volume] in Serum or Plasma [facility] Comment on above: Approximate Approxim ate hCG Gestational Age Range (mIU/ml) (weeks)0.2-1 5-50 1-2 50-500 2-3 100-5,000 3-4 500-10,000 4-5 1,000-50,000 5-6 10,000-100,000 6-8 15,000-200,000 8-12 10,000-100,000 HCG.beta subunit Qn 463.90 m[IU]/mL [facility] Comment on above: Approximate Approxim ate hCG Gestational Age Range (mIU/ml) (weeks)0.2-1 5-50 1-2 50-500 2-3 100-5,000 3-4 500-10,000 4-5 1,000-50,000 5-6 10,000-100,000 6-8 15,000-200,000 8-12 10,000-100,000 HCG,Quantitativeon HCG,Quantitative 463.90 m[iU]/mL Normal [facility] Comment on above: Result Comment: Appr oximate Approximate hCG Gestational Age Range (mIU/ml) (weeks) 0.2-1 5-50 1-2 50-500 2-3 100-5,000 3-4 500-10,000 4-5 1,000-50,000 5-6 10,000-100,000 6-8 15,000-200,000 8-12 10,000-100,000 PERFORMED BY: [place] [address] PATHOLOGIST THERMOPLASTIC TECHNICIAN CALLI JAFFE M.D. Performed By: #### H CGQNT #### [address] hCG, quantitative, on 02-23-2025 HCG,QUANTITATIVE 463.9 m[iU]/mL [facility] Comment on above: Approximate Approxim ate hCG Gestational Age Range (mIU/ml) (weeks) 0.2-1 5-50 1-2 50-500 2-3 100-5,000 3-4 500-10,000 4-5 1,000-50,000 5-6 10,000-100,000 6-8 15,000-200,000 8-12 10,000-100,000 [facility] Bacteria [Presence] in Urine by AutomatedOrdered By: LEN Saab on 02-22-2025 Bacteria Auto Ql (U) Bacteria [Presence] in Urine by Automated None Seen [facility] Bacteria Auto Ql (U) None seen [HPF] None Seen [facility] Basophils Auto (Bld) [#/Vol] Ordered By: LEN Saab on 02-22-2025 Basophils (Bld) [#/Vol] Automated basoph il count 0.0-0.2 [facility] Basophils [#/volume] in Bloo d by Automated countOrdered By: LEN Saab on 02-22-2025 Basophils (Bld) [#/Vol] 0.0 10*3/uL Normal 0.0-0.2 [facility] Comment on above: Order Comment: JUANITA COLÓNKW Result Comment: PERF ORMED BY: [facility] [address] [facility] [place] [address] PATHOLOGIST THERMOPLASTIC TECHNICIAN CALLI JAFFE M.D. Performed By: #### C UU, CBC, [facility], ADDONUAPLUS ####[facility] [address]#### RPR W RFX, RUBEOLA IGG, HIV SCREEN, HCV RX PCR, HBSAG ####[facility] , Basophils/100 WBC Auto (Bld) Ordered By: LEN Saab on 02-22-2025 Basophils/100 WBC (Bld) Automated basophil % . [facility] Basophils/100 leukocytes in Blood by Automated countOrdered By: LEN Saab on 02-22-2025 Basophils/100 WBC (Bld) 0.8 % Normal . [facility] Comment on above: Order Comment: JUANITA PATRICK.JKW Performed By: #### C UU, CBC, [facility], [facility] ####[facility] [address] [place] [address] [place]#### RPR W RFX, RUBEOLA IGG, HIV SCREEN, HCV RX PCR, HBSAG ####[facility] , Bilirubin Test strip Ql (U)O rdered By: LEN Saab on 02-22-2025 Bilirubin Ql (U) Bilirubin.total [Presence] in Urine by Test strip Negative [facility] Bilirubin Ql (U) Negative Negative [facility] CBC W Auto Differential pane l (Bld)on 02-22-2025 Basophils (Bld) [#/Vol] 0 10*3/uL 0.0 - 0.2 10*3/uL [facility] Basophils/100 WBC Manual cnt (Syn fld) 0.8 % . [facility] Eosinophils (Bld) [#/Vol] 0 10*3/uL 0.0 - 0.45 10*3/uL [facility] Eosinophils/100 WBC Manual cnt (Syn fld) 0.4 % . [facility] Erythrocyte distribution width (RBC) [Ratio] 15.2 % 11.9 - 15.3 % [facility] Hematocrit (Bld) [Volume fraction] 35.9 % 34.0 - 46.4 % [facility] Hemoglobin (Bld) [Mass/Vol] 11.9 g/dL 11.8 - 15.4 g/dL [facility] Lymphocytes (Bld) [#/Vol] 2.2 10*3/uL 1.00 - 4.8 10*3/uL [facility] Lymphocytes/100 WBC Manual cnt (Syn fld) 34.9 % . [facility] MCH (RBC) [Entitic mass] 29.3 pg 24. 7 - 34.3 pg [facility] MCHC (RBC) [Mass/Vol] 33.1 g/dL 32.0 - 35.0 g/dL [facility] MCV (RBC) [Entitic vol] 88.5 fL 80 - 100 fL [facility] Monocytes (Bld) [#/Vol] 0.6 10*3/uL 0.0 - 0.8 10*3/uL [facility] Monocytes+Macrophages/10 0 WBC Manual cnt (Syn fld) 8.8 % . [facility] Neutrophils (Bld) [#/Vol] 3.5 10*3/uL 1.8 - 7.7 10*3/uL [facility] Neutrophils/100 WBC Manual cnt (Syn fld) 55.1 % . [facility] NRBC 0.1 /100{WBC} 0 - 0.5 /100{WBC} [facility] Platelet mean volume (Bld) [Entitic vol] 9.1 fL 6.3 - 10.7 fL [facility] Platelets (Bld) [#/Vol] 308 10*3/uL 150 - 450 10*3/uL [facility] RBC LM.HPF (Urine sed) [#/Area] 4.06 10*6/uL 3.60 - 5.00 10*6/uL [facility] WBC (Bld) [#/Vol] 6.4 10*3/uL 3.8 - 11.6 10*3/uL [facility] WBC LM.HPF (Urine sed) [#/Area] 6.4 10*3/uL 3.8 - 11.6 10*3/uL [facility] FASTING.JKW [facility] Complete Blood Count Auto Di ffon 02-22-2025 Mean Corpuscular HGB Conc 33.1 g/dL Normal 32.0-35.0 [facility] Comment on above: Order Comment: FASTI NG.JKW Performed By: #### C UU, CBC, [facility], ADDONUAPLUS ####[place] [id number] [address]#### RPR W RFX, RUBEOLA IGG, HIV SCREEN, HCV RX PCR, HBSAG ####[facility] , NRBC% 0.1 /100{WBC} Normal 0-0.5 [facility] Comment on above: Order Comment: FASTI NG.JKW Performed By: #### C UU, CBC, [facility], ADDONUAPLUS ####[place] [id number] [address]#### RPR W RFX, RUBEOLA IGG, HIV SCREEN, HCV RX PCR, HBSAG ####[facility] , Dipstick and Microscopicon 0 02-22-2025 Bacteria,Urine None Seen Normal None Seen [facility] Comment on above: Order Comment: FASTI NG.JKW Name Collection Type:: Clean-Voided Midstream Performed By: #### C UU, CBC, [facility], ADDONUAPLUS ####[place] [id number] [place] [address] [place]#### RPR W RFX, RUBEOLA IGG, HIV SCREEN, HCV RX PCR, HBSAG ####[facility] , Bilirubin,Urine Negative Normal Negative [facility] Comment on above: Order Comment: FASTI NG.JKW Name Collection Type:: Clean-Voided Midstream Performed By: #### C UU, CBC, [facility], ADDONUAPLUS ####[address]#### RPR W RFX, RUBEOLA IGG, HIV SCREEN, HCV RX PCR, HBSAG ####[facility] , Glucose Ql (U) Normal Normal Normal [facility] Comment on above: Order Comment: JUANITA PATRICK.AleciaKW Name Collection Type:: Clean-Voided Midstream Performed By: #### C UU, CBC, [facility], ADDONUAPLUS ####[address]#### RPR W RFX, RUBEOLA IGG, HIV SCREEN, HCV RX PCR, HBSAG ####[facility] , Hyaline Casts,Urine None Normal 0-8 [facility] Comment on above: Order Comment: JUANITA PATRICK.AleciaKW Name Collection Type:: Clean-Voided Midstream Performed By: #### C UU, CBC, [facility], ADDONUAPLUS ####[address]#### RPR W RFX, RUBEOLA IGG, HIV SCREEN, HCV RX PCR, HBSAG ####[facility] , Ketones Ql (U) 2+ High Negative [facility] Comment on above: Order Comment: FASTSarita PATRICK.JKW Name Collection Type:: Clean-Voided Midstream Performed By: #### C UU, CBC, [facility], ADDONUAPLUS ####[address]#### RPR W RFX, RUBEOLA IGG, HIV SCREEN, HCV RX PCR, HBSAG ####[facility] , Mucus,Urine 2+ Critically abnormal [facility] Comment on above: Order Comment: FASTSarita PATRICK.AleciaKW Name Collection Type:: Clean-Voided Midstream Result Comment: PERF ORMED BY: [facility] [address] [address] PATHOLOGIST THERMOPLASTIC TECHNICIAN CALLI JAFFE M.D. Performed By: #### C UU, CBC, [facility], ADDONUAPLUS ####[address]#### RPR W RFX, RUBEOLA IGG, HIV SCREEN, HCV RX PCR, HBSAG ####[facility] , Nitrite,Urine Negative Normal Negative [facility] Comment on above: Order Comment: JUANITA COLÓNKW Name Collection Type:: Clean-Voided Midstream Performed By: #### C UU, CBC, [facility], ADDONUAPLUS ####[address]#### RPR W RFX, RUBEOLA IGG, HIV SCREEN, HCV RX PCR, HBSAG ####[facility] , Occult Blood,Urine 2+ High Negative [facility] Comment on above: Order Comment: JUANITA MCCARTYW Name Collection Type:: Clean-Voided Midstream Performed By: #### C UU, CBC, [facility], ADDONUAPLUS ####[address]#### RPR W RFX, RUBEOLA IGG, HIV SCREEN, HCV RX PCR, HBSAG ####[facility] , RBC,Urine 1-2 Normal 0-4 [facility] Comment on above: Order Comment: JUANITA MCCARTYW Name Collection Type:: Clean-Voided Midstream Performed By: #### C UU, CBC, [facility], ADDONUAPLUS ####[address]#### RPR W RFX, RUBEOLA IGG, HIV SCREEN, HCV RX PCR, HBSAG ####[facility] , Specificy [place],Urine >1.030 High 1.001-1.030 [facility] Comment on above: Order Comment: JUANITA MCCARTYW Name Collection Type:: Clean-Voided Midstream Performed By: #### C UU, CBC, [facility], ADDONUAPLUS ####[address]#### RPR W RFX, RUBEOLA IGG, HIV SCREEN, HCV RX PCR, HBSAG ####[facility] , Squamous Epithelial Cell,Urine 5-9 High 0-2 [facility] Comment on above: Order Comment: JUANITA MCCARTYW Name Collection Type:: Clean-Voided Midstream Performed By: #### C UU, CBC, [facility], ADDONUAPLUS ####[address]#### RPR W RFX, RUBEOLA IGG, HIV SCREEN, HCV RX PCR, HBSAG ####[facility] , Urobilinogen,Urine Normal Normal Normal [facility] Comment on above: Order Comment: JUANITA MCCARTYW Name Collection Type:: Clean-Voided Midstream Performed By: #### C UU, CBC, [facility], ADDONUAPLUS ####[address]#### RPR W RFX, RUBEOLA IGG, HIV SCREEN, HCV RX PCR, HBSAG ####[facility] , WBC,Urine 5-9 High 0-4 [facility] Comment on above: Order Comment: JUANITA PATRICK.JYaredW Name Collection Type:: Clean-Voided Midstream Performed By: #### C UU, CBC, [facility], ADDONUAPLUS ####[address]#### RPR W RFX, RUBEOLA IGG, HIV SCREEN, HCV RX PCR, HBSAG ####[facility] , Eosinophils Auto (Bld) [#/Vo l]Ordered By: LEN Saab on 02-22-2025 Eosinophils (Bld) [#/Vol] Automated eosinophil count 0.0-0.45 [facility] Eosinophils [#/volume] in Bl ood by Automated countOrdered By: LEN Saab on 02-22-2025 Eosinophils (Bld) [#/Vol] 0.0 10*3/uL Normal 0.0-0.45 [facility] Comment on above: Order Comment: FASTSarita NG.JKW Performed By: #### C UU, CBC, [facility], ADDONUAPLUS ####[facility] [id number] [place] [address] [place]#### RPR W RFX, RUBEOLA IGG, HIV SCREEN, HCV RX PCR, HBSAG ####[facility] , Eosinophils/100 WBC Auto (Bl d)Ordered By: LEN Saab on 02-22-2025 Eosinophils/100 WBC (Bld) Automated eosinophil % . [facility] Eosinophils/100 leukocytes i n Blood by Automated countOrdered By: LEN Saab on 02-22-2025 Eosinophils/100 WBC (Bld) 0.4 % Normal . [facility] Comment on above: Order Comment: FASTSarita PATRICK.JKW Performed By: #### C UU, CBC, [facility] LAB, ADDONUAPLUS ####[facility] [address] [place] [address] [place]#### RPR W RFX, RUBEOLA IGG, HIV SCREEN, HCV RX PCR, HBSAG ####[facility] , Epithelial cells.squamous [# /area] in Urine sediment by Automated countOrdered By: LEN Saab on 02-22-2025 Epithelial cells.squamous Auto (Urine sed) [#/Area] Epithelial cells.squamous [#/area] in Urine sediment by Automated count High 0-2 [facility] Epithelial cells.squamous Auto (Urine sed) [#/Area] 5-9 [HPF] High 0-2 [facility] Erythrocyte distribution wid th Auto (RBC) [Ratio]Ordered By: LEN Saab on 02-22-2025 Erythrocyte distribution width (RBC) [Ratio] Erythrocyte distribution width [Ratio] by Automated count 11.9-15.3 [facility] Erythrocyte distribution wid th [Ratio] by Automated countOrdered By: LEN Saab on 02-22-2025 Erythrocyte distribution width (RBC) [Ratio] 15.2 % Normal 11.9-15.3 [facility] Comment on above: Order Comment: JUANITA BOLTONJKW Performed By: #### C UU, CBC, [facility], ADDONUAPLUS ####[facility] [place] [id number] [facility]#### RPR W RFX, RUBEOLA IGG, HIV SCREEN, HCV RX PCR, HBSAG ####[facility] , Erythrocytes [#/area] in Uri ne sediment by Automated countOrdered By: LEN Saab on 02-22-2025 RBC Auto (Urine sed) [#/Area] Erythrocytes [#/area] in Urine sediment by Automated count 0-4 [facility] RBC Auto (Urine sed) [#/Area] 1-2 [HPF] 0-4 [facility] Erythrocytes [#/volume] in B lood by Automated countOrdered By: LEN Saab on 02-22-2025 RBC (Bld) [#/Vol] 4.06 10*6/uL Normal 3.60-5.00 [facility] Comment on above: Order Comment: JUANITA COLÓNKW Performed By: #### C UU, CBC, [facility], [facility] ####[facility]#### RPR W RFX, RUBEOLA IGG, HIV SCREEN, HCV RX PCR, HBSAG ####[facility] , Glucose [Mass/volume] in Uri ne by Test stripOrdered By: LEN Saab on 02-22-2025 Glucose Test strip (U) [Mass/Vol] Glucose [Mass/volume] in Urine by Test strip Normal [facility] Glucose Test strip (U) [Mass/Vol] Normal mg/dL Normal [facility] HIV 1/O/2 Antigen/Antibodyon 02-22-2025 HIV Screen 4th Generation Non-Reactive Normal Non Reactive [facility] Comment on above: Order Comment: FASTI NG.JKW Result Comment: HIV- 1/HIV-2 antibodies and HIV-1 p24 antigen were NOT detected. There is no laboratory evidence of HIV infection. HIV Negative Performed at: [address] [id number] Scout Sniper: Shai Marmolejo PhD, Phone: [phone] Performed By: #### C UU, CBC, [facility], ADDONUAPLUS ####[place] [id number] [address]#### RPR W RFX, RUBEOLA IGG, HIV SCREEN, HCV RX PCR, HBSAG ####[facility] , HIV antibody and antigen jo elOrdered By: LEN Saab on 02-22-2025 HIV 1+2 Ab+HIV1 p24 Ag IA Ql HIV 1 and HIV-2 antibody assay with HIV-1 p24 antigen detection Non Reactive [facility] Comment on above: HIV-1/HIV-2 antibodi es and HIV-1 p24 antigen were NOTdetected. There is no laboratory evidence of HIV infection.HIV NegativePerformed at: [address] [id number] Director: Shai Marmolejo PhD, Phone: [phone] Hematocrit Auto (Bld) [Volum e fraction]Ordered By: LEN Saab on 02-22-2025 Hematocrit (Bld) [Volume fraction] Hematocrit [Volume Fraction] of Blood by Automated count 34.0-46.4 [facility] Hematocrit [Volume Fraction] of Blood by Automated countOrdered By: LEN Saab on 02-22-2025 Hematocrit (Bld) [Volume fraction] 35.9 % Normal 34.0-46.4 [facility] Comment on above: Order Comment: JUANITA DEGROOT Performed By: #### C UU, CBC, [facility], ADDONUAPL[facility] ####[place] [id number] [address]#### RPR W RFX, RUBEOLA IGG, HIV SCREEN, HCV RX PCR, HBSAG ####[facility] , Hemoglobin Test strip Ql (U) Ordered By: LEN Saab on 02-22-2025 Hemoglobin Ql (U) Hemoglobin [Presence ] in Urine by Test strip High Negative [facility] Hemoglobin Ql (U) 2+ High Negative [facility] Hemoglobin [Mass/volume] in BloodOrdered By: LEN Saab on 02-22-2025 Hemoglobin (Bld) [Mass/Vol] Hemoglobin [Mass/volume] in Blood 11.8-15.4 [facility] Hemoglobin (Bld) [Mass/Vol] 11.9 g/dL Normal 11.8-15.4 [facility] Comment on above: Order Comment: FASTI NG.JKW Performed By: #### C UU, CBC, [facility], ADDONUAPLUS ####[place] [id number] [address]#### RPR W RFX, RUBEOLA IGG, HIV SCREEN, HCV RX PCR, HBSAG ####[facility] , Hep C Ab wRfx to Qnt PCRon 0 02-22-2025 Hepatitis C Virus Antibody Non-Reactive Normal Non Reactive [facility] Comment on above: Order Comment: FASTI NG.JKW Performed By: #### C UU, CBC, [facility] LAB, ADDONUAPLUS ####[address]#### RPR W RFX, RUBEOLA IGG, HIV SCREEN, HCV RX PCR, HBSAG ####[facility] , Interpretation Hepatitis C Comment Normal . [facility] Comment on above: Order Comment: FASTI NG.JKW Result Comment: Not infected with HCV unless early or acute infection is suspected (which may be delayed in an immunocompromised individual), or other evidence exists to indicate HCV infection. Performed By: #### C UU, CBC, [facility] LAB, ADDONUAPLUS ####[facility] [place] [address] [place]#### RPR W RFX, RUBEOLA IGG, HIV SCREEN, HCV RX PCR, HBSAG ####[facility] , Hepatitis B Surface Antigeno n 02-22-2025 HBsAg Screen Negative Normal Negative [facility] Comment on above: Order Comment: JUANITA DEGROOT Result Comment: Perf ormed at: - [facility] [address] [id number] Scout Sniper: Shai Marmolejo PhD, Phone: [phone] PERFORMED BY: [facility] [address] [place] [address] PATHOLOGIST THERMOPLASTIC TECHNICIAN CALLI JAFFE M.D. Performed By: #### C UU, CBC, [facility] LAB, ADDONUAPLUS ####[facility] [address]#### RPR W RFX, RUBEOLA IGG, HIV SCREEN, HCV RX PCR, HBSAG ####[facility] , Hepatitis C virus IgG Ab [Pr esence] in Serum or Plasma by ImmunoassayOrdered By: LEN Saab on 02-22-2025 HCV IgG IA Ql Hepatitis C virus Ig G Ab [Presence] in Serum or Plasma by Immunoassay Non Reactive [facility] HCV IgG IA Ql Non-Reactive Non Reactive [facility] Hyaline casts [#/area] in Ur ine sediment by Automated countOrdered By: LEN Saab on 02-22-2025 Hyaline casts Auto (Urine sed) [#/Area] Hyaline casts [#/area] in Urine sediment by Automated count 0-8 [facility] Hyaline casts Auto (Urine sed) [#/Area] None [LPF] 0-8 [facility] Ketones Test strip (U) [Mass /Vol]Ordered By: LEN Saab on 02-22-2025 Ketones (U) [Mass/Vol] Urine ketones measurement by test strip (mass/volume) High Negative [facility] Ketones (U) [Mass/Vol] 2+ High Negative [facility] Leukocyte esterase [Presence ] in Urine by Test stripOrdered By: LEN Saab on 02-22-2025 Leukocyte esterase Test strip Ql (U) Leukocyte esterase [Presence] in Urine by Test strip High Negative [facility] Leukocyte esterase Test strip Ql (U) 1+ High Negative [facility] Comment on above: Order Comment: JUANITA DEGROOT Name Collection Type:: Clean-Voided Midstream Performed By: #### C UU, CBC, [facility] LAB, ADDONUAPLUS ####[facility] [address]#### RPR W RFX, RUBEOLA IGG, HIV SCREEN, HCV RX PCR, HBSAG ####[facility] , Leukocytes [#/area] in Urine sediment by Automated countOrdered By: LEN Saab on 02-22-2025 WBC Auto (Urine sed) [#/Area] Leukocytes [#/area] in Urine sediment by Automated count High 0-4 [facility] WBC Auto (Urine sed) [#/Area] 5-9 [HPF] High 0-4 [facility] Leukocytes [#/volume] correc lashon for nucleated erythrocytes in Blood by Automated counOrdered By: LEN Saab on 02-22-2025 WBC corrected for nucl RBC Auto (Bld) [#/Vol] Leukocytes [#/volume] corrected for nucleated erythrocytes in Blood by Automated coun 3.8-11.6 [facility] WBC corrected for nucl RBC Auto (Bld) [#/Vol] 6.4 10*3/uL 3.8-11.6 [facility] Leukocytes [#/volume] in Blo od by Automated countOrdered By: LEN Saab on 02-22-2025 WBC (Bld) [#/Vol] 6.4 10*3/uL Normal 3.8-11.6 [facility] Comment on above: Order Comment: JUANITA MCCARTYW Performed By: #### C UU, CBC, MISC LAB, ADDONUAPLUS ####[facility] [id number]#### RPR W RFX, RUBEOLA IGG, HIV SCREEN, HCV RX PCR, HBSAG ####[facility] , Lymphocytes Auto (Bld) [#/Vo l]Ordered By: LEN Saab on 02-22-2025 Lymphocytes (Bld) [#/Vol] Lymphocytes [#/volume] in Blood by Automated count 1.00-4.8 [facility] Lymphocytes [#/volume] in Bl ood by Automated countOrdered By: LEN Saab on 02-22-2025 Lymphocytes (Bld) [#/Vol] 2.2 10*3/uL Normal 1.00-4.8 [facility] Comment on above: Order Comment: FASTSarita [email or web address].JKW Performed By: #### C UU, CBC, MISC LAB, ADDONUAPLUS ####[facility] [id number] [place] [address] [place]#### RPR W RFX, RUBEOLA IGG, HIV SCREEN, HCV RX PCR, HBSAG ####[facility] , Lymphocytes/100 WBC Auto (Bl d)Ordered By: LEN Saab on 02-22-2025 Lymphocytes/100 WBC (Bld) Lymphocytes/100 leukocytes in Blood by Automated count . [facility] Lymphocytes/100 leukocytes i n Blood by Automated countOrdered By: LEN Saab on 02-22-2025 Lymphocytes/100 WBC (Bld) 34.9 % Normal . [facility] Comment on above: Order Comment: FASTSarita [email or web address].JKW Performed By: #### C UU, CBC, MISC LAB, ADDONUAPLUS ####[facility] [id number] [place] [address] [place]#### RPR W RFX, RUBEOLA IGG, HIV SCREEN, HCV RX PCR, HBSAG ####[facility] , MCH Auto (RBC) [Entitic mass ]Ordered By: LEN Saab on 02-22-2025 MCH (RBC) [Entitic mass] MCH [Entitic ma ss] by Automated count 24.7-34.3 [facility] MCH [Entitic mass] by Automa lashon countOrdered By: LEN Saab on 02-22-2025 MCH (RBC) [Entitic mass] 29.3 pg Normal 24.7-34.3 [facility] Comment on above: Order Comment: FASTSarita [email or web address].JKW Performed By: #### C UU, CBC, MISC LAB, ADDONUAPLUS ####[place] [id number] [address]#### RPR W RFX, RUBEOLA IGG, HIV SCREEN, HCV RX PCR, HBSAG ####[facility] , MCHC Auto (RBC) [Mass/Vol]Or dered By: LEN Saab on 02-22-2025 MCHC (RBC) [Mass/Vol] MCHC [Mass/volume] by Automated count 32.0-35.0 [facility] MCHC (RBC) [Mass/Vol] 33.1 g/dL 32.0-35.0 [facility] MCV Auto (RBC) [Entitic vol] Ordered By: LEN Saab on 02-22-2025 MCV (RBC) [Entitic vol] MCV [Entitic vol ume] by Automated count 80-100 [facility] MCV [Entitic volume] by Auto mated countOrdered By: LEN Saab on 02-22-2025 MCV (RBC) [Entitic vol] 88.5 fL Normal 80-100 [facility] Comment on above: Order Comment: FASTSarita [email or web address].JKW Performed By: #### C UU, CBC, MISC LAB, ADDONUAPLUS ####[place] [id number] [address]#### RPR W RFX, RUBEOLA IGG, HIV SCREEN, HCV RX PCR, HBSAG ####[facility] , MISC LABon 02-22-2025 MISC LAB Normal [facility] Comment on above: Order Comment: JUANITA BOLTONJKW [facility] Test Name: DRUG SCREEN 17 W/CONF TEST#[id number] Result Comment: See report. Scanned copy available in EMR. PERFORMED BY: [facility] [address] [place] [address] PATHOLOGIST THERMOPLASTIC TECHNICIAN CALLI JAFFE M.D. Performed By: #### C UU, CBC, MISC LAB, ADDONUAPLUS ####[place] [id number] [address]#### RPR W RFX, RUBEOLA IGG, HIV SCREEN, HCV RX PCR, HBSAG ####[facility] , Monocytes Auto (Bld) [#/Vol] Ordered By: LEN Saab on 02-22-2025 Monocytes (Bld) [#/Vol] Automated blood monocyte count 0.0-0.8 [facility] Monocytes [#/volume] in Bloo d by Automated countOrdered By: LEN Saab on 02-22-2025 Monocytes (Bld) [#/Vol] 0.6 10*3/uL Normal 0.0-0.8 [facility] Comment on above: Order Comment: FASTI [email or web address].JKW Performed By: #### C UU, CBC, [facility], ADDONUAPL[place] ####[place] [address] [place]#### RPR W RFX, RUBEOLA IGG, HIV SCREEN, HCV RX PCR, HBSAG ####[facility] , Monocytes/100 WBC Auto (Bld) Ordered By: LEN Saab on 02-22-2025 Monocytes/100 WBC (Bld) Automated monocyte % . [facility] Monocytes/100 leukocytes in Blood by Automated countOrdered By: LEN Saab on 02-22-2025 Monocytes/100 WBC (Bld) 8.8 % Normal . [facility] Comment on above: Order Comment: FASTI NG.JKW Performed By: #### C UU, CBC, MISC LAB, ADDONUAPLUS ####[place] [address] [place]#### RPR W RFX, RUBEOLA IGG, HIV SCREEN, HCV RX PCR, HBSAG ####[facility] , Mucus [Presence] in Urine by AutomatedOrdered By: LEN Saab on 02-22-2025 Mucus Auto Ql (U) Mucus [Presence] in Urine by Automated Abnormal [facility] Mucus Auto Ql (U) 2+ [LPF] Abnormal [facility] Neutrophils Auto (Bld) [#/Vo l]Ordered By: LEN Saab on 02-22-2025 Neutrophils (Bld) [#/Vol] Neutrophils [#/volume] in Blood by Automated count 1.8-7.7 [facility] Neutrophils [#/volume] in Bl ood by Automated countOrdered By: LEN Saab on 02-22-2025 Neutrophils (Bld) [#/Vol] 3.5 10*3/uL Normal 1.8-7.7 [facility] Comment on above: Order Comment: JUANITA COLÓNKW Performed By: #### C UU, CBC, [facility], ADDONUAP[facility] ####[facility] [address] [place] [address] [place]#### RPR W RFX, RUBEOLA IGG, HIV SCREEN, HCV RX PCR, HBSAG ####[facility] , Neutrophils/100 WBC Auto (Bl d)Ordered By: LEN Saab on 02-22-2025 Neutrophils/100 WBC (Bld) Automated neutrophil % . [facility] Neutrophils/100 leukocytes i n Blood by Automated countOrdered By: LEN Saab on 02-22-2025 Neutrophils/100 WBC (Bld) 55.1 % Normal . [facility] Comment on above: Order Comment: JUANITA COLÓNKW Performed By: #### C UU, CBC, MISC LAB, ADDONUAPLUS ####[facility] [address] [place] [address] [place]#### RPR W RFX, RUBEOLA IGG, HIV SCREEN, HCV RX PCR, HBSAG ####[facility] , Nitrite Test strip Ql (U)Ord ered By: LEN Saab on 02-22-2025 Nitrite Ql (U) Nitrite [Presence] i n Urine by Test strip Negative [facility] Nitrite Ql (U) Negative Negative [facility] No Panel InformationOrdered By: LEN Saab on 02-22-2025 Hepatitis C Interpretation Comment . [facility] Comment on above: Not infected with HC V unless early or acute infection issuspected (which may be delayed in an immunocompromisedindividual), or other evidence exists to indicate HCVinfection. Miscellaneous Test See comment [facility] Comment on above: See report. Scanned copy available in EMR. Nucleated erythrocytes [Pres ence] in Blood by Automated countOrdered By: LEN Saab on 02-22-2025 Nucleated RBC Auto Ql (Bld) Nucleated erythrocytes [Presence] in Blood by Automated count 0-0.5 [facility] Nucleated RBC Auto Ql (Bld) 0.1 /100{WBC} 0-0.5 [facility] Platelet mean volume Auto (B ld) [Entitic vol]Ordered By: LEN Saab on 02-22-2025 Platelet mean volume (Bld) [Entitic vol] Platelet mean volume [Entitic volume] in Blood by Automated count 6.3-10.7 [facility] Platelet mean volume [Entiti c volume] in Blood by Automated countOrdered By: THANH Saab on 02-22-2025 Platelet mean volume (Bld) [Entitic vol] 9.1 fL Normal 6.3-10.7 [facility] Comment on above: Order Comment: JUANITA COLÓNKW Performed By: #### C UU, CBC, MISC LAB, ADDONUAPLUS ####[facility] [address]#### RPR W RFX, RUBEOLA IGG, HIV SCREEN, HCV RX PCR, HBSAG ####[facility] , Platelets Auto (Bld) [#/Vol] Ordered By: LEN Saab on 02-22-2025 Platelets (Bld) [#/Vol] Platelets [#/vol ume] in Blood by Automated count 150-450 [facility] Platelets [#/volume] in Bloo d by Automated countOrdered By: LEN Saab on 02-22-2025 Platelets (Bld) [#/Vol] 308 10*3/uL Normal 150-450 [facility] Comment on above: Order Comment: JUANITA [email or web address].JKW Performed By: #### C UU, CBC, MISC LAB, ADDONUAPLUS ####[place] [id number] [address]#### RPR W RFX, RUBEOLA IGG, HIV SCREEN, HCV RX PCR, HBSAG ####[facility] , Protein Test strip (U) [Mass /Vol]Ordered By: LEN Saab on 02-22-2025 Protein (U) [Mass/Vol] Protein [Mass/vol ume] in Urine by Test strip High Negative [facility] Protein [Mass/volume] in Uri ne by Test stripOrdered By: LEN Saab on 02-22-2025 Protein (U) [Mass/Vol] 10 mg/dL High Negative [facility] Comment on above: Order Comment: JUANITA COLÓNKW Name Collection Type:: Clean-Voided Midstream Performed By: #### C UU, CBC, MISC LAB, ADDONUAPLUS ####[place] [id number] [address]#### RPR W RFX, RUBEOLA IGG, HIV SCREEN, HCV RX PCR, HBSAG ####[facility] , RBC Auto (Bld) [#/Vol]Ordere d By: LEN Saab on 02-22-2025 RBC (Bld) [#/Vol] Erythrocytes [#/volume] in Blood by Automated count 3.60-5.00 [facility] RPR w/rfx to Quant TP Abson 02-22-2025 RPR, Rfx Quant RPR Non-Reactive Normal Non Reactive [facility] Comment on above: Order Comment: JUANITA BOLTONJKW Result Comment: PERF ORMED BY: [facility] [address] [place] [address] PATHOLOGIST THERMOPLASTIC TECHNICIAN CALLI JAFFE M.D. Performed By: #### C UU, CBC, MISC LAB, ADDONUAPLUS ####[place] [id number] [address]#### RPR W RFX, RUBEOLA IGG, HIV SCREEN, HCV RX PCR, HBSAG ####[facility] , Rubeola (Measles) Abs, IgGon 02-22-2025 Rubeola (Measles) Abs, IgG 201.0 Normal Immune >16.4 [facility] Comment on above: Order Comment: JUANITA MCCARTYW Result Comment: Nega tive <13.5 Equivocal 13.5 - 16.4 Positive >16.4 Presence of antibodies to Rubeola is presumptive evidence of immunity except when acute infection is suspected. Performed at: [facility] [id number] Scout Sniper: Shai Marmolejo PhD, Phone: [phone] Performed By: #### C UU, CBC, MISC LAB, ADDONUAPLUS ####[facility]#### RPR W RFX, RUBEOLA IGG, HIV SCREEN, HCV RX PCR, HBSAG ####[facility] , Serum RPR testOrdered By: MD MARTINA Saab on 02-22-2025 Reagin Ab RPR Ql (S) Reagin Ab [Presence ] in Serum by RPR Non Reactive [facility] Reagin Ab RPR Ql (S) Non-Reactive Non Reactive [facility] Serum measles virus IgG anti body assay by immunoassay (units/volume)Ordered By: LEN Saab on 02-22-2025 MeV IgG IA Qn (S) Measles virus IgG Ab [Units/volume] in Serum by Immunoassay Immune >16.4 [facility] Comment on above: Negative <13.5 Equiv ocal 13.5 - 16.4 Positive >16.4Presence of antibodies to Rubeola is presumptive evidenceof immunity except when acute infection is suspected.Performed at: [facility] [id number] Director: Shai Marmolejo PhD, Phone: [phone] MeV IgG IA Qn (S) 201.0 AU/mL Immune >16.4 [facility] Comment on above: Negative <13.5 Equiv ocal 13.5 - 16.4 Positive >16.4Presence of antibodies to Rubeola is presumptive evidenceof immunity except when acute infection is suspected.Performed at: [facility] [address] [id number] Director: Shai Marmolejo PhD, Phone: [phone] Serum or plasma hepatitis B virus surface antigen detection by immunoassayOrdered By: LEN Saab on 02-22-2025 HBV surface Ag IA Ql Hepatitis B virus surface Ag [Presence] in Serum or Plasma by Immunoassay Negative [facility] Comment on above: Performed at: [facility] [address] [id number] Director: Shai Marmolejo PhD, Phone: [phone] HBV surface Ag IA Ql Negative Negative [facility] Comment on above: Performed at: [facility] [address] [id number] Director: Shai Marmolejo PhD, Phone: [phone] Specific gravity of Urine by RefractometryOrdered By: LEN Saab on 02-22-2025 Specific gravity Refractometry (U) [Rel density] Specific gravity of Urine by Refractometry High 1.001-1.030 [facility] Specific gravity Refractometry (U) [Rel density] >1.030 High 1.001-1.030 [facility] Type and Screenon 02-22-2025 ABO and Rh group Nom (Bld) Blood group O Rh(D) positive Normal [facility] Comment on above: Order Comment: FASTI NG.JKW Urine Cultureon 02-22-2025 Bacteria identified Cx Nom (U) FASTING.JKW ORGANISM: Strep agalactiae - (group b) (O:STRAGA) [place] Count 30,000 PERFORMED BY: [facility] [address] [place] [address] PATHOLOGIST THERMOPLASTIC TECHNICIAN CALLI JAFFE M.D. Normal [facility] Comment on above: Performed By: #### C UU, CBC, MISC LAB, ADDONUAPLUS ####[place] [address] [place] [address] [place]#### RPR W RFX, RUBEOLA IGG, HIV SCREEN, HCV RX PCR, HBSAG ####[facility] , Urine appearance determinati onOrdered By: LEN Saab on 02-22-2025 Appearance (U) Urine appearance Clear [facility] Appearance (U) Clear Normal Clear [facility] Comment on above: Order Comment: JUANITA BOLTONJYaredW Name Collection Type:: Clean-Voided Midstream Performed By: #### C UU, CBC, MISC LAB, ADDONUAPLUS ####[address]#### RPR W RFX, RUBEOLA IGG, HIV SCREEN, HCV RX PCR, HBSAG ####[facility] , Urine color determinationOrd ered By: LEN Saab on 02-22-2025 Color (U) Urine color Yellow [facility] Color (U) Yellow Normal Yellow [facility] Comment on above: Order Comment: JUANITA PATRICK.JKW Name Collection Type:: Clean-Voided Midstream Performed By: #### C UU, CBC, MISC LAB, ADDONUAPLUS ####[address]#### RPR W RFX, RUBEOLA IGG, HIV SCREEN, HCV RX PCR, HBSAG ####[facility] , Urine cultureOrdered By: THANH Saab on 02-22-2025 Bacteria identified Cx Nom (U) Group B Strep (Streptococcus agalactiae) Abnormal [facility] Bacteria identified Cx Nom (U) Strep agalactiae - (group b) Abnormal [facility] Urobilinogen Test strip (U) [Mass/Vol]Ordered By: LEN Saab on 02-22-2025 Urobilinogen (U) [Mass/Vol] Urobilinogen [Mass/volume] in Urine by Test strip Normal [facility] Urobilinogen (U) [Mass/Vol] Normal mg/dL Normal [facility] WBC Auto (Bld) [#/Vol]Ordere d By: LEN Saab on 02-22-2025 WBC (Bld) [#/Vol] Leukocytes [#/volume ] in Blood by Automated count 3.8-11.6 [facility] pH Test strip (U)Ordered By: LEN Saab on 02-22-2025 pH (U) pH of Urine by Test strip 5.0-9.0 [facility] pH of Urine by Test stripOrd ered By: LEN Saab on 02-22-2025 pH (U) 5.5 [pH] Normal 5.0-9.0 [facility] Comment on above: Order Comment: JUANITA DEGROOT Name Collection Type:: Clean-Voided Midstream Performed By: #### C UU, CBC, MISC LAB, ADDONUAPLUS ####[facility] [address]#### RPR W RFX, RUBEOLA IGG, HIV SCREEN, HCV RX PCR, HBSAG ####[facility] , Thyroid Stimulating Immunogl obon 02-15-2025 Thyroid Stimulating Immunoglob <0.10 Normal 0.00-0.55 [facility] Comment on above: Order Comment: Reaso n for Exam Decreased thyroid stimulating hormone (TSH) level Result Comment: Perf ormed at: - [facility] [address] [id number] Scout Sniper: Mami Frank MD, Phone: [phone] PERFORMED BY: [facility] [address] [place] [address] PATHOLOGIST THERMOPLASTIC TECHNICIAN CALLI JAFFE M.D. Performed By: #### H CGQNT #### [facility] [address] Thyroid stimulating immunogl obulin (TSI) measurementOrdered By: Shad Alamo on 02-15-2025 Thyroid stimulating immunoglobulins actual/normal (S) [Relative mass conc] Thyroid stimulating immunoglobulin (TSI) measurement 0.00-0.55 [facility] Comment on above: Performed at: [facility] [id number] [place], [place] [id number] Director: Mami Frank MD, Phone: [phone] Thyroid stimulating immunoglobulins actual/normal (S) [Relative mass conc] <0.10 IU/L 0.00-0.55 [facility] Comment on above: Performed at: [facility] [address] [id number] Director: Mami Frank MD, Phone: [phone] Alanine aminotransferase [En zymatic activity/volume] in Serum or PlasmaOrdered By: Shad Alamo on 02-01-2025 ALT [Catalytic activity/Vol] Alanine aminotransferase [Enzymatic activity/volume] in Serum or Plasma [facility] ALT [Catalytic activity/Vol] 21 U/L Normal [facility] Comment on above: Order Comment: Reaso n for Exam Generalized anxiety disorder Performed By: #### H CGQNT #### [facility] [address] [place] [address] Albumin [Mass/volume] in Ser um or Plasma by Bromocresol green (BCG) dye binding methoOrdered By: Shad Alamo on 02-01-2025 Albumin BCG dye [Mass/Vol] Albumin [Mass/volume] in Serum or Plasma by Bromocresol green (BCG) dye binding metho 3.5-5.7 [facility] Albumin BCG dye [Mass/Vol] 4.6 g/dL 3.5-5.7 [facility] Alkaline phosphatase [Enzyma tic activity/volume] in Serum or PlasmaOrdered By: Shad Alamo on 02-01-2025 ALP [Catalytic activity/Vol] Alkaline phosphatase [Enzymatic activity/volume] in Serum or Plasma 34 [facility] ALP [Catalytic activity/Vol] 67 U/L Normal [facility] Comment on above: Order Comment: Reaso n for Exam Generalized anxiety disorder Performed By: #### H CGQNT #### [facility] [address] [place] [address] [place] Aspartate aminotransferase [ Enzymatic activity/volume] in Serum or PlasmaOrdered By: Shad Alamo on 02-01-2025 AST [Catalytic activity/Vol] Aspartate aminotransferase [Enzymatic activity/volume] in Serum or Plasma [facility] AST [Catalytic activity/Vol] 17 U/L Normal - [facility] Comment on above: Order Comment: Reaso n for Exam Generalized anxiety disorder Performed By: #### H CGQNT #### [facility] [address] Basophils Auto (Bld) [#/Vol] Ordered By: Shad Alamo on 02-01-2025 Basophils (Bld) [#/Vol] Automated basoph il count 0.0-0.2 [facility] Basophils [#/volume] in Bloo d by Automated countOrdered By: Shad Alamo on 02-01-2025 Basophils (Bld) [#/Vol] 0.1 10*3/uL Normal 0.0-0.2 [facility] Comment on above: Order Comment: Reaso n for Exam Generalized anxiety disorder Result Comment: PERF ORMED BY: [place] [address] PATHOLOGIST THERMOPLASTIC TECHNICIAN JEAN CARLOS LYNN M.D. Performed By: #### H CGQNT #### [address] Basophils/100 WBC Auto (Bld) Ordered By: Shad Alamo on 02-01-2025 Basophils/100 WBC (Bld) Automated basophil % . [facility] Basophils/100 leukocytes in Blood by Automated countOrdered By: Shad Alamo on 02-01-2025 Basophils/100 WBC (Bld) 0.9 % Normal . [facility] Comment on above: Order Comment: Reaso n for Exam Generalized anxiety disorder Performed By: #### H CGQNT #### [facility] [address] [place] [address] Bilirubin.total [Mass/volume ] in Serum or PlasmaOrdered By: Shad Alamo on 02-01-2025 Bilirubin [Mass/Vol] Bilirubin.total [Mass/volume] in Serum or Plasma 0.3-1.0 [facility] Bilirubin [Mass/Vol] 0.5 mg/dL Normal 0.3-1.0 [facility] Comment on above: Order Comment: Reaso n for Exam Generalized anxiety disorder Performed By: #### H CGQNT #### [facility] [address] Calcium [Mass/volume] in Ser um or PlasmaOrdered By: Shad Alamo on 02-01-2025 Calcium [Mass/Vol] Calcium [Mass/volume ] in Serum or Plasma 8.6-10.3 [facility] Calcium [Mass/Vol] 10.2 mg/dL Normal 8.6-10.3 [facility] Comment on above: Order Comment: Reaso n for Exam Generalized anxiety disorder Performed By: #### H CGQNT #### [facility] [address] Carbon dioxide, total [Moles /volume] in Serum or PlasmaOrdered By: Shad Alamo on 02-01-2025 CO2 [Moles/Vol] Carbon dioxide, tota l [Moles/volume] in Serum or Plasma 21.0-31.0 [facility] CO2 [Moles/Vol] 29.9 mmol/L Normal 21.0-31.0 [facility] Comment on above: Order Comment: Reaso n for Exam Generalized anxiety disorder Performed By: #### H CGQNT #### [facility] [address] [place] [address] Chloride [Moles/volume] in S sindi or PlasmaOrdered By: Shad Alamo on 02-01-2025 Chloride [Moles/Vol] Chloride [Moles/volume] in Serum or Plasma 98-107 [facility] Chloride [Moles/Vol] 103 mmol/L Normal 98-107 [facility] Comment on above: Order Comment: Reaso n for Exam Generalized anxiety disorder Performed By: #### H CGQNT #### [facility] [address] [place] [address] Complete Blood Count Auto Di ffon 02-01-2025 Mean Corpuscular HGB Conc 33.5 g/dL Normal 32.0-35.0 [facility] Comment on above: Order Comment: Reaso n for Exam Generalized anxiety disorder Performed By: #### H CGQNT #### [address] NRBC% 0.0 /100{WBC} Normal 0-0.5 [facility] Comment on above: Order Comment: Reaso n for Exam Generalized anxiety disorder Performed By: #### H CGQNT #### [address] Comprehensive Metabolic Pane ernestine 02-01-2025 Albumin [Mass/Vol] 4.6 g/dL Normal 3.5-5.7 [facility] Comment on above: Order Comment: Reaso n for Exam Generalized anxiety disorder Performed By: #### H CGQNT #### [address] GFR/1.73 sq M.predicted MDRD (S/P/Bld) [Vol rate/Area] mL/min/{1.73_m2} Normal [facility] Comment on above: Order Comment: Reaso n for Exam Generalized anxiety disorder Performed By: #### H CGQNT #### [address] Creatinine [Mass/volume] in Serum or PlasmaOrdered By: Shad Alamo on 02-01-2025 Creatinine [Mass/Vol] Creatinine [Mass/volume] in Serum or Plasma 0.60-1.20 [facility] Creatinine [Mass/Vol] 0.73 mg/dL Normal 0.60-1.20 [facility] Comment on above: Order Comment: Reaso n for Exam Generalized anxiety disorder Performed By: #### H CGQNT #### [place] [address] [place] Eosinophils Auto (Bld) [#/Vo l]Ordered By: Shad Alamo on 02-01-2025 Eosinophils (Bld) [#/Vol] Automated eosinophil count 0.0-0.45 [facility] Eosinophils [#/volume] in Bl ood by Automated countOrdered By: Sahd Alamo on 02-01-2025 Eosinophils (Bld) [#/Vol] 0.1 10*3/uL Normal 0.0-0.45 [facility] Comment on above: Order Comment: Reaso n for Exam Generalized anxiety disorder Performed By: #### H CGQNT #### [address] Eosinophils/100 WBC Auto (Bl d)Ordered By: Shad Alamo on 02-01-2025 Eosinophils/100 WBC (Bld) Automated eosinophil % . [facility] Eosinophils/100 leukocytes i n Blood by Automated countOrdered By: Shad Alamo on 02-01-2025 Eosinophils/100 WBC (Bld) 0.6 % Normal . [facility] Comment on above: Order Comment: Reaso n for Exam Generalized anxiety disorder Performed By: #### H CGQNT #### [address] Erythrocyte distribution wid th Auto (RBC) [Ratio]Ordered By: Shad Alamo on 02-01-2025 Erythrocyte distribution width (RBC) [Ratio] Erythrocyte distribution width [Ratio] by Automated count 11.9-15.3 [facility] Erythrocyte distribution wid th [Ratio] by Automated countOrdered By: Shad Alamo on 02-01-2025 Erythrocyte distribution width (RBC) [Ratio] 14.9 % Normal 11.9-15.3 [facility] Comment on above: Order Comment: Reaso n for Exam Generalized anxiety disorder Performed By: #### H CGQNT #### [address] Erythrocytes [#/volume] in B lood by Automated countOrdered By: Shad Alamo on 02-01-2025 RBC (Bld) [#/Vol] 4.40 10*6/uL Normal 3.60-5.00 [facility] Comment on above: Order Comment: Reaso n for Exam Generalized anxiety disorder Performed By: #### H CGQNT #### [address] Globulin Calc (S) [Mass/Vol] Ordered By: Shad Alamo on 02-01-2025 Globulin (S) [Mass/Vol] Serum globulin measurement by calculation (mass/volume) [facility] Glucose [Mass/volume] in Ser um or PlasmaOrdered By: Shad Alamo on 02-01-2025 Glucose [Mass/Vol] Glucose [Mass/volume ] in Serum or Plasma 70-100 [facility] Comment on above: ADA recommended refe rence rangeRandom Glucose Reference Range is dependent on time and content of last meal. Glucose of more than 200 mg/dL in a nonstressed, ambulatory subject supports the diagnosis of Diabetes Mellitus. Glucose [Mass/Vol] 94 mg/dL Normal 70-100 [facility] Comment on above: ADA recommended refe rence rangeRandom Glucose Reference Range is dependent on time and content of last meal. Glucose of more than 200 mg/dL in a nonstressed, ambulatory subject supports the diagnosis of Diabetes Mellitus. Order Comment: Reaso n for Exam Generalized anxiety disorder Result Comment: [place] Glucose Reference Range is dependent on time and content of last meal. Glucose of more than 200 mg/dL in a nonstressed, ambulatory subject supports the diagnosis of Diabetes Mellitus. ADA recommended reference range Performed By: #### H CGQNT #### [address] Hematocrit Auto (Bld) [Volum e fraction]Ordered By: Shad Alamo on 02-01-2025 Hematocrit (Bld) [Volume fraction] Hematocrit [Volume Fraction] of Blood by Automated count 34.0-46.4 [facility] Hematocrit [Volume Fraction] of Blood by Automated countOrdered By: Shad Alamo on 02-01-2025 Hematocrit (Bld) [Volume fraction] 38.6 % Normal 34.0-46.4 [facility] Comment on above: Order Comment: Reaso n for Exam Generalized anxiety disorder Performed By: #### H CGQNT #### [address] Hemoglobin [Mass/volume] in BloodOrdered By: Shad Alamo on 02-01-2025 Hemoglobin (Bld) [Mass/Vol] Hemoglobin [Mass/volume] in Blood 11.8-15.4 [facility] Hemoglobin (Bld) [Mass/Vol] 12.9 g/dL Normal 11.8-15.4 [facility] Comment on above: Order Comment: Reaso n for Exam Generalized anxiety disorder Performed By: #### H CGQNT #### [address] [place] [address] [place] Leukocytes [#/volume] correc lashon for nucleated erythrocytes in Blood by Automated counOrdered By: Shad Alamo on 02-01-2025 WBC corrected for nucl RBC Auto (Bld) [#/Vol] Leukocytes [#/volume] corrected for nucleated erythrocytes in Blood by Automated coun 3.8-11.6 [facility] WBC corrected for nucl RBC Auto (Bld) [#/Vol] 8.2 10*3/uL 3.8-11.6 [facility] Leukocytes [#/volume] in Blo od by Automated countOrdered By: Shad Alamo on 02-01-2025 WBC (Bld) [#/Vol] 8.2 10*3/uL Normal 3.8-11.6 [facility] Comment on above: Order Comment: Reaso n for Exam Generalized anxiety disorder Performed By: #### H CGQNT #### [address] Lymphocytes Auto (Bld) [#/Vo l]Ordered By: Shad Alamo on 02-01-2025 Lymphocytes (Bld) [#/Vol] Lymphocytes [#/volume] in Blood by Automated count 1.00-4.8 [facility] Lymphocytes [#/volume] in Bl ood by Automated countOrdered By: Shad Alamo on 02-01-2025 Lymphocytes (Bld) [#/Vol] 2.9 10*3/uL Normal 1.00-4.8 [facility] Comment on above: Order Comment: Reaso n for Exam Generalized anxiety disorder Performed By: #### H CGQNT #### [address] Lymphocytes/100 WBC Auto (Bl d)Ordered By: Shad Alamo on 02-01-2025 Lymphocytes/100 WBC (Bld) Lymphocytes/100 leukocytes in Blood by Automated count . [facility] Lymphocytes/100 leukocytes i n Blood by Automated countOrdered By: Shad Alamo on 02-01-2025 Lymphocytes/100 WBC (Bld) 35.2 % Normal . [facility] Comment on above: Order Comment: Reaso n for Exam Generalized anxiety disorder Performed By: #### H CGQNT #### [facility] [address] MCH Auto (RBC) [Entitic mass ]Ordered By: Shad Alamo on 02-01-2025 MCH (RBC) [Entitic mass] MCH [Entitic ma ss] by Automated count 24.7-34.3 [facility] MCH [Entitic mass] by Automa lashon countOrdered By: Shad Alamo on 02-01-2025 MCH (RBC) [Entitic mass] 29.4 pg Normal 24.7-34.3 [facility] Comment on above: Order Comment: Reaso n for Exam Generalized anxiety disorder Performed By: #### H CGQNT #### [address] MCHC Auto (RBC) [Mass/Vol]Or dered By: Shad Alamo on 02-01-2025 MCHC (RBC) [Mass/Vol] MCHC [Mass/volume] by Automated count 32.0-35.0 [facility] MCHC (RBC) [Mass/Vol] 33.5 g/dL 32.0-35.0 [facility] MCV Auto (RBC) [Entitic vol] Ordered By: Shad Alamo on 02-01-2025 MCV (RBC) [Entitic vol] MCV [Entitic vol ume] by Automated count 80-100 [facility] MCV [Entitic volume] by Auto mated countOrdered By: Shad Alamo on 02-01-2025 MCV (RBC) [Entitic vol] 87.7 fL Normal 80-100 [facility] Comment on above: Order Comment: Reaso n for Exam Generalized anxiety disorder Performed By: #### H CGQNT #### [address] Monocytes Auto (Bld) [#/Vol] Ordered By: Shad Alamo on 02-01-2025 Monocytes (Bld) [#/Vol] Automated blood monocyte count 0.0-0.8 [facility] Monocytes [#/volume] in Bloo d by Automated countOrdered By: Shad Alamo on 02-01-2025 Monocytes (Bld) [#/Vol] 0.5 10*3/uL Normal 0.0-0.8 [facility] Comment on above: Order Comment: Reaso n for Exam Generalized anxiety disorder Performed By: #### H CGQNT #### [address] Monocytes/100 WBC Auto (Bld) Ordered By: Shad Alamo on 02-01-2025 Monocytes/100 WBC (Bld) Automated monocyte % . [facility] Monocytes/100 leukocytes in Blood by Automated countOrdered By: Shad Alamo on 02-01-2025 Monocytes/100 WBC (Bld) 5.8 % Normal . [facility] Comment on above: Order Comment: Reaso n for Exam Generalized anxiety disorder Performed By: #### H CGQNT #### [address] Neutrophils Auto (Bld) [#/Vo l]Ordered By: Shad Alamo on 02-01-2025 Neutrophils (Bld) [#/Vol] Neutrophils [#/volume] in Blood by Automated count 1.8-7.7 [facility] Neutrophils [#/volume] in Bl ood by Automated countOrdered By: Shad Alamo on 02-01-2025 Neutrophils (Bld) [#/Vol] 4.7 10*3/uL Normal 1.8-7.7 [facility] Comment on above: Order Comment: Reaso n for Exam Generalized anxiety disorder Performed By: #### H CGQNT #### [address] Neutrophils/100 WBC Auto (Bl d)Ordered By: Shad Alamo on 02-01-2025 Neutrophils/100 WBC (Bld) Automated neutrophil % . [facility] Neutrophils/100 leukocytes i n Blood by Automated countOrdered By: Shad Alamo on 02-01-2025 Neutrophils/100 WBC (Bld) 57.5 % Normal . [facility] Comment on above: Order Comment: Reaso n for Exam Generalized anxiety disorder Performed By: #### H CGQNT #### [address] No Panel InformationOrdered By: Shad Alamo on 02-01-2025 Estimated GFR (CKD-EPI) > 60.0 mL/Min [facility] Creatinine Clearance (Chem N/A [facility] Nucleated erythrocytes [Pres ence] in Blood by Automated countOrdered By: Shad Alamo on 02-01-2025 Nucleated RBC Auto Ql (Bld) Nucleated erythrocytes [Presence] in Blood by Automated count 0-0.5 [facility] Nucleated RBC Auto Ql (Bld) 0.0 /100{WBC} 0-0.5 [facility] Platelet mean volume Auto (B ld) [Entitic vol]Ordered By: Shad Alamo on 02-01-2025 Platelet mean volume (Bld) [Entitic vol] Platelet mean volume [Entitic volume] in Blood by Automated count 6.3-10.7 [facility] Platelet mean volume [Entiti c volume] in Blood by Automated countOrdered By: Shad Alamo on 02-01-2025 Platelet mean volume (Bld) [Entitic vol] 9.2 fL Normal 6.3-10.7 [facility] Comment on above: Order Comment: Reaso n for Exam Generalized anxiety disorder Performed By: #### H CGQNT #### [facility] [address] [place] [address] [place] Platelets Auto (Bld) [#/Vol] Ordered By: Shad Alamo on 02-01-2025 Platelets (Bld) [#/Vol] Platelets [#/vol ume] in Blood by Automated count 150-450 [facility] Platelets [#/volume] in Bloo d by Automated countOrdered By: Shad Alamo on 02-01-2025 Platelets (Bld) [#/Vol] 376 10*3/uL Normal 150-450 [facility] Comment on above: Order Comment: Reaso n for Exam Generalized anxiety disorder Performed By: #### H CGQNT #### [facility] [address] [place] [address] [place] Potassium [Moles/volume] in Serum or PlasmaOrdered By: Shad Alamo on 02-01-2025 Potassium [Moles/Vol] Potassium [Moles/volume] in Serum or Plasma 3.5-5.1 [facility] Potassium [Moles/Vol] 4.2 mmol/L Normal 3.5-5.1 [facility] Comment on above: Order Comment: Reaso n for Exam Generalized anxiety disorder Performed By: #### H CGQNT #### [address] Protein [Mass/volume] in Ser um or PlasmaOrdered By: Shad Alamo on 02-01-2025 Protein [Mass/Vol] Protein [Mass/volume ] in Serum or Plasma 6.4-8.9 [facility] Protein [Mass/Vol] 7.6 g/dL Normal 6.4-8.9 [facility] Comment on above: Order Comment: Reaso n for Exam Generalized anxiety disorder Performed By: #### H CGQNT #### [address] RBC Auto (Bld) [#/Vol]Ordere d By: Shad Alamo on 02-01-2025 RBC (Bld) [#/Vol] Erythrocytes [#/volume] in Blood by Automated count 3.60-5.00 [facility] Serum globulin measurement b y calculation (mass/volume)Ordered By: Shad Alamo on 02-01-2025 Globulin (S) [Mass/Vol] 3.0 g/dL Normal [facility] Comment on above: Order Comment: Reaso n for Exam Generalized anxiety disorder Performed By: #### H CGQNT #### [facility] [address] [place] [address] Serum or plasma albumin/glob ulin mass ratioOrdered By: Shad Alamo on 02-01-2025 Albumin/Globulin [Mass ratio] Serum or plasma albumin/globulin mass ratio [facility] Albumin/Globulin [Mass ratio] 1.5 {ratio} Normal [facility] Comment on above: Order Comment: Reaso n for Exam Generalized anxiety disorder Performed By: #### H CGQNT #### [address] Serum or plasma anion gap de terminationOrdered By: Shad Alamo on 02-01-2025 Anion gap [Moles/Vol] Serum or plasma an ion gap determination 6.0-15.0 [facility] Anion gap [Moles/Vol] 7.3 mmol/L Normal 6.0-15.0 [facility] Comment on above: Order Comment: Reaso n for Exam Generalized anxiety disorder Performed By: #### H CGQNT #### [facility] [address] [place] [address] [place] Sodium [Moles/volume] in Ser um or PlasmaOrdered By: Shad Alamo on 02-01-2025 Sodium [Moles/Vol] Sodium [Moles/volume ] in Serum or Plasma 136-145 [facility] Sodium [Moles/Vol] 136 mmol/L Normal 136-145 [facility] Comment on above: Order Comment: Reaso n for Exam Generalized anxiety disorder Performed By: #### H CGQNT #### [facility] [address] [place] [address] Thyroid Stim Hormone w/Rflxo n 02-01-2025 Thyroid Stim Hormone w/Rflx 0.38 u[iU]/mL Low 0.45-5.33 [facility] Comment on above: Order Comment: Reaso n for Exam Generalized anxiety disorder Result Comment: PERF ORMED BY: [place] [address] PATHOLOGIST THERMOPLASTIC TECHNICIAN JEAN CARLOS LYNN M.D. Performed By: #### H CGQNT #### [facility] [address] [place] [address] Thyrotropin [Units/volume] i n Serum or PlasmaOrdered By: Shad Alamo on 02-01-2025 TSH Qn Thyrotropin [Units/volume] in Serum or Plasma Low 0.45-5.33 [facility] TSH Qn 0.38 m[IU]/L Low 0.45-5.33 [facility] Thyroxine (T4) free [Mass/vo lume] in Serum or PlasmaOrdered By: Shad Alamo on 02-01-2025 Free T4 [Mass/Vol] Thyroxine (T4) free [Mass/volume] in Serum or Plasma 0.61-1.12 [facility] Free T4 [Mass/Vol] 0.79 ng/dL Normal 0.61-1.12 [facility] Comment on above: Order Comment: Reaso n for Exam Generalized anxiety disorder Performed By: #### H CGQNT #### [facility] [address] Urea nitrogen [Mass/volume] in Serum or PlasmaOrdered By: Shad Alamo on 02-01-2025 Urea nitrogen [Mass/Vol] Urea nitrogen [Mass/volume] in Serum or Plasma 04-14 [facility] Urea nitrogen [Mass/Vol] 13 mg/dL Normal 04-14 [facility] Comment on above: Order Comment: Reaso n for Exam Generalized anxiety disorder Performed By: #### H CGQNT #### [facility] [address] [place] [id number] [facility] WBC Auto (Bld) [#/Vol]Ordere d By: Shad Alamo on 02-01-2025 WBC (Bld) [#/Vol] Leukocytes [#/volume ] in Blood by Automated count 3.8-11.6 [facility] Urine Cultureon 09-24-2024 Bacteria identified Cx Nom (U) ORGANISM: Enterococcus faecalis (O:ENTFAC) [place] Count 40,000 Aerobic JOSE Charge (PCMIC38) --- SUSCEPTIBILITY -- ORGANISM: O:ENTFAC ANTIBIOTIC INTERPRETATION JOSE Ampicillin S [...] RESISTANT TO ALL B-LACTAM DRUGS. PERFORMED BY: [facility] [address] [place] [address] PATHOLOGIST THERMOPLASTIC TECHNICIAN JEAN CARLOS LYNN M.D. Normal [facility] Comment on above: Performed By: #### C UU #### [facility] [address] Stone Analysison 07-19-2024 Calculi description See Note [facility] Comment on above: Result Comment: (NOT E) Specimen consists of one brown and crane calculus. The total weight is 24 mg. Performed By: #### A STONE #### [employer] [address] [place] [id number] Scout Sniper: Merrill Faulkner MD Composition See Note [facility] Comment on above: Result Comment: (NOT E) [...] composition determined by FTIR analysis. Performed By: [employer] [address] [place] [id number] Senior Production Planner: Andrews Marx MD, PhD CLIA Number: [id number] Performed By: #### A STONE #### [address] [id number] Scout Sniper: Merrill Faulkner MD Mass 24 mg [facility] Comment on above: Performed By: #### A STONE #### [employer] [address] [place] [id number] Scout Sniper: Merrill Faulkner MD FLUORO FOR SURGICAL PROCEDUR ESon 07-14-2024 FLUORO FOR SURGICAL PROCEDURES Radiology exam is complete. No Radiologist dictation. Please follow up with ordering provider. Final result Normal [facility] HCG, ,Urineon 07-14 Beta HCG ( test) Ql (U) Negative Normal NEG [facility] Comment on above: Result Comment: Spec imens with hCG levels near the threshold of the test (25 mIU/mL) may give a negative or indeterminate result. In such cases, another test should be performed with a new specimen in 48-72 hours. If early is suspected clinically in this setting, correlation with quantitative serum b-hCG level is suggested. [facility] the use of plasma for this test. This has not been cleared or approved by the U.S. Food and Drug Administration. The FDA has determined that such clearance is not necessary. Performed By: #### U HCG #### [facility] [address] [place] [address] [place]. [place], [place] [id number] Scout Sniper: Ganesh Newman MD Alanine aminotransferase [En zymatic activity/volume] in Serum or PlasmaOrdered By: Felix Simpson on 07-11-2024 ALT [Catalytic activity/Vol] 30 U/L Normal [facility] Comment on above: Performed By: #### H EPATIC, LIPASE, BMP, CBC #### [facility] [address] [place] [address] ALT [Catalytic activity/Vol] Alanine aminotransferase [Enzymatic activity/volume] in Serum or Plasma [facility] Albumin [Mass/volume] in Ser um or Plasma by Bromocresol green (BCG) dye binding methoOrdered By: Felix Simpson on 07-11-2024 Albumin BCG dye [Mass/Vol] 4.6 g/dL 3.5-5.7 [facility] Albumin BCG dye [Mass/Vol] Albumin [Mass/volume] in Serum or Plasma by Bromocresol green (BCG) dye binding metho 3.5-5.7 [facility] Alkaline phosphatase [Enzyma tic activity/volume] in Serum or PlasmaOrdered By: Felix Simpson on 07-11-2024 ALP [Catalytic activity/Vol] 58 U/L Normal [facility] Comment on above: Performed By: #### H EPATIC, LIPASE, BMP, CBC #### [facility] [address] [place] [address] [facility] ALP [Catalytic activity/Vol] Alkaline phosphatase [Enzymatic activity/volume] in Serum or Plasma [facility] Appearance of UrineOrdered B y: Felix Simpson on 10-21-2024 Appearance (U) Urine appearance Abnormal [facility] Aspartate aminotransferase [ Enzymatic activity/volume] in Serum or PlasmaOrdered By: Felix Simpson on 07-11-2024 AST [Catalytic activity/Vol] 24 U/L Normal [facility] Comment on above: Performed By: #### H EPATIC, LIPASE, BMP, CBC #### [address] AST [Catalytic activity/Vol] Aspartate aminotransferase [Enzymatic activity/volume] in Serum or Plasma [facility] Automated basophil %Ordered By: Felix Simpson on 07-11-2024 Basophils/100 WBC (Bld) 0.6 % Normal . [facility] Comment on above: Performed By: #### H EPATIC, LIPASE, BMP, CBC #### [address] Automated basophil countOrde red By: Felix Simpson on 07-11-2024 Basophils (Bld) [#/Vol] 0.1 10*3/uL Normal 0.0-0.2 [facility] Comment on above: Result Comment: PERF ORMED BY: [place] [address] PATHOLOGIST THERMOPLASTIC TECHNICIAN WARREN BUSTAMANTE M.D. Performed By: #### H EPATIC, LIPASE, BMP, CBC #### [address] Automated blood monocyte cou ntOrdered By: Felix Simpson on 07-11-2024 Monocytes (Bld) [#/Vol] 0.9 10*3/uL High 0.0-0.8 [facility] Comment on above: Performed By: #### H EPATIC, LIPASE, BMP, CBC #### [address] Automated eosinophil %Ordere d By: Felix Simpson on 07-11-2024 Eosinophils/100 WBC (Bld) 0.6 % Normal . [facility] Comment on above: Performed By: #### H EPATIC, LIPASE, BMP, CBC #### [address] Automated eosinophil countOr dered By: Felix Simpson on 07-11-2024 Eosinophils (Bld) [#/Vol] 0.1 10*3/uL Normal 0.0-0.45 [facility] Comment on above: Performed By: #### H EPATIC, LIPASE, BMP, CBC #### [address] Automated monocyte %Ordered By: Felix Simpson on 07-11-2024 Monocytes/100 WBC (Bld) 10.5 % Normal . [facility] Comment on above: Performed By: #### H EPATIC, LIPASE, BMP, CBC #### [address] Automated neutrophil %Ordere d By: Felix Simpson on 07-11-2024 Neutrophils/100 WBC (Bld) 63.3 % Normal . [facility] Comment on above: Performed By: #### H EPATIC, LIPASE, BMP, CBC #### [address] Bacteria [Presence] in Urine by AutomatedOrdered By: Felix Simpson on 07-11-2024 Bacteria Auto Ql (U) Rare [HPF] None Seen [facility] Bacteria Auto Ql (U) Bacteria [Presence] in Urine by Automated None Seen [facility] Basic Metabolic Panelon 06-22 Creatinine Clr Calc Pharmacy 123.53 Normal [facility] Comment on above: Performed By: #### H EPATIC, LIPASE, BMP, CBC #### [address] GFR/1.73 sq M.predicted MDRD (S/P/Bld) [Vol rate/Area] mL/min/{1.73_m2} Normal [facility] Comment on above: Performed By: #### H EPATIC, LIPASE, BMP, CBC #### [address] Basophils Auto (Bld) [#/Vol] Ordered By: Felix Simpson on 07-11-2024 Basophils (Bld) [#/Vol] Automated basoph il count 0.0-0.2 [facility] Basophils/100 WBC Auto (Bld) Ordered By: Felix Simpson on 07-11-2024 Basophils/100 WBC (Bld) Automated basophil % . [facility] Bilirubin Test strip Ql (U)O rdered By: Felix Simpson on 07-11-2024 Bilirubin Ql (U) Negative Negative [facility] Bilirubin Ql (U) Bilirubin.total [Presence] in Urine by Test strip Negative [facility] Bilirubin.direct [Mass/volum e] in Serum or PlasmaOrdered By: Felix Simpson on 07-11-2024 Bilirubin.direct [Mass/Vol] 0.20 mg/dL High 0.03-0.18 [facility] Bilirubin.direct [Mass/Vol] Bilirubin.direct [Mass/volume] in Serum or Plasma High 0.03-0.18 [facility] Bilirubin.total [Mass/volume ] in Serum or PlasmaOrdered By: Felix Simpson on 07-11-2024 Bilirubin [Mass/Vol] 0.9 mg/dL Normal 0.3-1.0 [facility] Comment on above: Performed By: #### H EPATIC, LIPASE, BMP, CBC #### [facility] [address] Bilirubin [Mass/Vol] Bilirubin.total [Mass/volume] in Serum or Plasma 0.3-1.[address] [facility] [address] abdomen pelvis wo conon 1 CT abdomen pelvis wo con [facility] [place] [address] [place] [address] CT Scan Report Signed Patient: Beatris Mack MR#: [id number] : 2000 Acct:[id number] Age/Sex: 24 / F ADM Date: 07/11/24 Loc: ER Room: Type: [facility] ER Attending Dr: Copies to: Felix Simpson [...] are present as above. Impression dictated by: Gayel Knox M.D.07/11/2024 3:17 PM Dictation Location: [place] [address] Transcribed By: [facility] 07/11/241516 Dictated By: Gayle nKox II, MD 07/11/241510 Signed By: 07/11/241516 Normal [facility] Calcium [Mass/volume] in Ser um or PlasmaOrdered By: Felix Simpson on 07-11-2024 Calcium [Mass/Vol] 10.0 mg/dL Normal 8.6-10.3 [facility] Comment on above: Performed By: #### H EPATIC, LIPASE, BMP, CBC #### [facility] [address] Calcium [Mass/Vol] Calcium [Mass/volume ] in Serum or Plasma 8.6-10.3 [facility] Carbon dioxide, total [Moles /volume] in Serum or PlasmaOrdered By: Felix Simpson on 07-11-2024 CO2 [Moles/Vol] 24.2 mmol/L Normal 21.0-31.0 [facility] Comment on above: Performed By: #### H EPATIC, LIPASE, BMP, CBC #### [facility] [address] CO2 [Moles/Vol] Carbon dioxide, tota l [Moles/volume] in Serum or Plasma 21.0-31.0 [facility] Chloride [Moles/volume] in S sindi or PlasmaOrdered By: Felix Simpson on 07-11-2024 Chloride [Moles/Vol] 104 mmol/L Normal 98-107 [facility] Comment on above: Performed By: #### H EPATIC, LIPASE, BMP, CBC #### [address] Chloride [Moles/Vol] Chloride [Moles/volume] in Serum or Plasma 98-107 [facility] Color Auto (U)Ordered By: Drew Simpson on 07-11-2024 Color (U) Color of Urine by Auto Yellow [facility] Color of Urine by AutoOrdere d By: Felix Simpson on 07-11-2024 Color (U) Yellow Normal Yellow [facility] Comment on above: Order Comment: Name Collection Type:: Clean-Voided Midstream Performed By: #### U HCG, ADDONUAPLUS #### [facility] [address] Complete Blood Count Auto Di ffon 07-11-2024 Mean Corpuscular HGB Conc 33.2 g/dL Normal 32.0-35.0 [facility] Comment on above: Performed By: #### H EPATIC, LIPASE, BMP, CBC #### [facility] [address] [place] [address] [place] Monocytes/100 WBC (Bld) 16.73 % Normal 0.00-20.00 [facility] Comment on above: Performed By: #### H EPATIC, LIPASE, BMP, CBC #### [facility] [address] [place] [address] NRBC% 0.0 /100{WBC} Normal 0-0.5 [facility] Comment on above: Performed By: #### H EPATIC, LIPASE, BMP, CBC #### [address] Creatinine [Mass/volume] in Serum or PlasmaOrdered By: Felix Simpson on 07-11-2024 Creatinine [Mass/Vol] 0.77 mg/dL Normal 0.60-1.20 [facility] Comment on above: Performed By: #### H EPATIC, LIPASE, BMP, CBC #### [address] Creatinine [Mass/Vol] Creatinine [Mass/volume] in Serum or Plasma 0.60-1.20 [facility] Crystals [Presence] in Urine by AutomatedOrdered By: Felix Simpson on 07-11-2024 Crystals Auto Ql (U) 2+ [HPF] [facility] Crystals Auto Ql (U) Crystals [Presence] in Urine by Automated [facility] Dipstick and Microscopicon 1 Bacteria,Urine Rare Normal None Seen [facility] Comment on above: Order Comment: Name Collection Type:: Clean-Voided Midstream Performed By: #### U HCG, ADDONUAPLUS #### [address] Bilirubin,Urine Negative Normal Negative [facility] [facility] Comment on above: Order Comment: Name Collection Type:: Clean-Voided Midstream Performed By: #### U HCG, ADDONUAPLUS #### [address] Glucose Ql (U) Normal Normal Normal [facility] Comment on above: Order Comment: Name Collection Type:: Clean-Voided Midstream Performed By: #### U HCG, ADDONUAPLUS #### [address] [place] [address] [place] Hyaline Casts,Urine None Normal 0-8 [facility] Comment on above: Order Comment: Name Collection Type:: Clean-Voided Midstream Performed By: #### U HCG, ADDONUAPLUS #### [address] Mucus,Urine 3+ Critically abnormal [facility] Comment on above: Order Comment: Name Collection Type:: Clean-Voided Midstream Performed By: #### U HCG, ADDONUAPLUS #### [place] [address] [place] Nitrite,Urine Negative Normal Negative [facility] Comment on above: Order Comment: Name Collection Type:: Clean-Voided Midstream Performed By: #### U HCG, ADDONUAPLUS #### [address] Occult Blood,Urine 3+ High Negative [facility] Comment on above: Order Comment: Name Collection Type:: Clean-Voided Midstream Performed By: #### U HCG, ADDONUAPLUS #### [place] [address] [place] Othe Crystals,Urine 2+ Normal [facility] Comment on above: Order Comment: Name Collection Type:: Clean-Voided Midstream Performed By: #### U HCG, ADDONUAPLUS #### [place] [address] [place] RBC,Urine Innumerable High 0-4 [facility] Comment on above: Order Comment: Name Collection Type:: Clean-Voided Midstream Performed By: #### U HCG, ADDONUAPLUS #### [facility] [address] [place] [address] [place] Specificy [place],Urine 1.032 High 1.001-1.030 [facility] Comment on above: Order Comment: Name Collection Type:: Clean-Voided Midstream Performed By: #### U HCG, ADDONUAPLUS #### [place] [address] [place] Squamous Epithelial Cell,Urine 5-9 High 0-2 [facility] Comment on above: Order Comment: Name Collection Type:: Clean-Voided Midstream Performed By: #### U HCG, ADDONUAPLUS #### [facility] [address] [place] [address] Urobilinogen,Urine Normal Normal Normal [facility] Comment on above: Order Comment: Name Collection Type:: Clean-Voided Midstream Performed By: #### U HCG, ADDONUAPLUS #### [facility] [address] [place] [address] WBC CLUMP, Urine Occasional High None Seen [facility] Comment on above: Order Comment: Name Collection Type:: Clean-Voided Midstream Performed By: #### U HCG, ADDONUAPLUS #### [facility] [address] [place] [address] WBC,Urine 10-19 High 0-4 [facility] Comment on above: Order Comment: Name Collection Type:: Clean-Voided Midstream Performed By: #### U HCG, ADDONUAPLUS #### [facility] [address] [place] [address] Eosinophils Auto (Bld) [#/Vo l]Ordered By: Felix Simpson on 07-11-2024 Eosinophils (Bld) [#/Vol] Automated eosinophil count 0.0-0.45 [facility] Eosinophils/100 WBC Auto (Bl d)Ordered By: Felix Simpson on 07-11-2024 Eosinophils/100 WBC (Bld) Automated eosinophil % . [facility] Epithelial cells.squamous [# /area] in Urine sediment by Automated countOrdered By: Felix Simpson on 07-11-2024 Epithelial cells.squamous Auto (Urine sed) [#/Area] 5-9 [HPF] High 0-2 [facility] Epithelial cells.squamous Auto (Urine sed) [#/Area] Epithelial cells.squamous [#/area] in Urine sediment by Automated count High 0-2 [facility] Erythrocyte distribution wid th Auto (RBC) [Ratio]Ordered By: Felix Simpson on 07-11-2024 Erythrocyte distribution width (RBC) [Ratio] Erythrocyte distribution width [Ratio] by Automated count 11.9-15.3 [facility] Erythrocyte distribution wid th [Ratio] by Automated countOrdered By: Felix Simpson on 07-11-2024 Erythrocyte distribution width (RBC) [Ratio] 14.7 % Normal 11.9-15.3 [facility] Comment on above: Performed By: #### H EPATIC, LIPASE, BMP, CBC #### [facility] [address] Erythrocytes [#/area] in Uri ne sediment by Automated countOrdered By: Felix Simpson on 07-11-2024 RBC Auto (Urine sed) [#/Area] Innumerable [HPF] High 0-4 [facility] RBC Auto (Urine sed) [#/Area] Erythrocytes [#/area] in Urine sediment by Automated count High 0-4 [facility] Erythrocytes [#/volume] in B lood by Automated countOrdered By: Felix Simpson on 07-11-2024 RBC (Bld) [#/Vol] 4.30 10*6/uL Normal 3.60-5.00 [facility] Comment on above: Performed By: #### H EPATIC, LIPASE, BMP, CBC #### [address] Globulin Calc (S) [Mass/Vol] Ordered By: Felix Simpson on 07-11-2024 Globulin (S) [Mass/Vol] Serum globulin measurement by calculation (mass/volume) [facility] Glucose [Mass/volume] in Ser um or PlasmaOrdered By: Felix Simpson on 07-11-2024 Glucose [Mass/Vol] 91 mg/dL Normal 70-100 [facility] Comment on above: ADA recommended refe rence rangeRandom Glucose Reference Range is dependent on time and content of last meal. Glucose of more than 200 mg/dL in a nonstressed, ambulatory subject supports the diagnosis of Diabetes Mellitus. Result Comment: [place] Glucose Reference Range is dependent on time and content of last meal. Glucose of more than 200 mg/dL in a nonstressed, ambulatory subject supports the diagnosis of Diabetes Mellitus. ADA recommended reference range Performed By: #### H EPATIC, LIPASE, BMP, CBC #### [facility] [address] [place] [address] Glucose [Mass/Vol] Glucose [Mass/volume ] in Serum or Plasma 70-100 [facility] Comment on above: ADA recommended refe rence rangeRandom Glucose Reference Range is dependent on time and content of last meal. Glucose of more than 200 mg/dL in a nonstressed, ambulatory subject supports the diagnosis of Diabetes Mellitus. Glucose [Mass/volume] in Uri ne by Test stripOrdered By: Felix Simpson on 07-11-2024 Glucose Test strip (U) [Mass/Vol] Normal mg/dL Normal [facility] Glucose Test strip (U) [Mass/Vol] Glucose [Mass/volume] in Urine by Test strip Normal [facility] HCG ( test) IA.rapi d Ql (U)Ordered By: Felix Simpson on 07-11-2024 HCG ( test) Ql (U) Negative [facility] HCG ( test) Ql (U) Urine human chorionic gonadotropin (hCG) detection by immunoassay [facility] HCG,Urineon 07-11-2024 Beta HCG ( test) Ql (U) Negative Normal [facility] Comment on above: Order Comment: Name Collection Type:: Clean-Voided Midstream Result Comment: PERF ORMED BY: [place] [address] PATHOLOGIST THERMOPLASTIC TECHNICIAN WARREN BUSTAMANTE M.D. Performed By: #### U HCG, ADDONUAPLUS #### [facility] [address] [place] [address] Hematocrit Auto (Bld) [Volum e fraction]Ordered By: Felix Simpson on 07-11-2024 Hematocrit (Bld) [Volume fraction] Hematocrit [Volume Fraction] of Blood by Automated count 34.0-46.4 [facility] Hematocrit [Volume Fraction] of Blood by Automated countOrdered By: Felix Simpson on 07-11-2024 Hematocrit (Bld) [Volume fraction] 38.2 % Normal 34.0-46.4 [facility] Comment on above: Performed By: #### H EPATIC, LIPASE, BMP, CBC #### [facility] [address] Hemoglobin Test strip Ql (U) Ordered By: Felix Simpson on 07-11-2024 Hemoglobin Ql (U) 3+ High Negative [facility] Hemoglobin Ql (U) Hemoglobin [Presence ] in Urine by Test strip High Negative [facility] Hemoglobin [Mass/volume] in BloodOrdered By: Felix Simpson on 07-11-2024 Hemoglobin (Bld) [Mass/Vol] 12.7 g/dL Normal 11.8-15.4 [facility] Comment on above: Performed By: #### H EPATIC, LIPASE, BMP, CBC #### [address] Hemoglobin (Bld) [Mass/Vol] Hemoglobin [Mass/volume] in Blood 11.8-15.4 [facility] Hepatic Panelon 07-11-2024 Albumin [Mass/Vol] 4.6 g/dL Normal 3.5-5.7 [facility] Comment on above: Performed By: #### H EPATIC, LIPASE, BMP, CBC #### [address] Bilirubin,Indirect 0.7 mg/dL Normal [facility] Comment on above: Performed By: #### H EPATIC, LIPASE, BMP, CBC #### [address] Bilirubin.indirect [Mass/Vol] 0.20 mg/dL High 0.03-0.18 [facility] Comment on above: Performed By: #### H EPATIC, LIPASE, BMP, CBC #### [address] Hyaline casts [#/area] in Ur ine sediment by Automated countOrdered By: Felix Simpson on 07-11-2024 Hyaline casts Auto (Urine sed) [#/Area] None [LPF] 0-8 [facility] Hyaline casts Auto (Urine sed) [#/Area] Hyaline casts [#/area] in Urine sediment by Automated count 0-8 [facility] Ketones Test strip Ql (U)Ord ered By: Felix Simpson on 07-11-2024 Ketones Ql (U) Ketones [Presence] i n Urine by Test strip High Negative [facility] Ketones [Presence] in Urine by Test stripOrdered By: Felix Simpson on 07-11-2024 Ketones Ql (U) 3+ High Negative [facility] Comment on above: Order Comment: Name Collection Type:: Clean-Voided Midstream Performed By: #### U HCG, ADDONUAPLUS #### [facility] [address] [place] [address] Leukocyte clumps [Presence] in Urine by AutomatedOrdered By: Felix Simpson on 07-11-2024 Leukocyte clumps Auto Ql (U) Occasional [LPF] High None Seen [facility] Leukocyte clumps Auto Ql (U) Leukocyte clumps [Presence] in Urine by Automated High None Seen [facility] Leukocyte esterase [Presence ] in Urine by Test stripOrdered By: Felix Simpson on 07-11-2024 Leukocyte esterase Test strip Ql (U) Negative Normal Negative [facility] Comment on above: Order Comment: Name Collection Type:: Clean-Voided Midstream Performed By: #### U HCG, ADDONUAPLUS #### [facility] [address] [place] [address] Leukocyte esterase Test strip Ql (U) Leukocyte esterase [Presence] in Urine by Test strip Negative [facility] Leukocytes [#/area] in Urine sediment by Automated countOrdered By: Felix Simpson on 07-11-2024 WBC Auto (Urine sed) [#/Area] 10-19 [HPF] High 0-4 [facility] WBC Auto (Urine sed) [#/Area] Leukocytes [#/area] in Urine sediment by Automated count High 0-4 [facility] Leukocytes [#/volume] correc lashon for nucleated erythrocytes in Blood by Automated counOrdered By: Felix Simpson on 07-11-2024 WBC corrected for nucl RBC Auto (Bld) [#/Vol] 8.8 10*3/uL 3.8-11.6 [facility] WBC corrected for nucl RBC Auto (Bld) [#/Vol] Leukocytes [#/volume] corrected for nucleated erythrocytes in Blood by Automated coun 3.8-11.6 [facility] Leukocytes [#/volume] in Blo od by Automated countOrdered By: Felix Simpson on 07-11-2024 WBC (Bld) [#/Vol] 8.8 10*3/uL Normal 3.8-11.6 [facility] Comment on above: Performed By: #### H EPATIC, LIPASE, BMP, CBC #### [address] Lipase [Enzymatic activity/v olume] in Serum or PlasmaOrdered By: Felix Simpson on 07-11-2024 Lipase [Catalytic activity/Vol] 26.0 U/L Normal 11.0-82.0 [facility] Comment on above: Result Comment: PERF ORMED BY: [place] [address] PATHOLOGIST THERMOPLASTIC TECHNICIAN WARREN BUSTAMANTE M.D. Performed By: #### H EPATIC, LIPASE, BMP, CBC #### [address] Lipase [Catalytic activity/Vol] Lipase [Enzymatic activity/volume] in Serum or Plasma 11.0-82.0 [facility] Lymphocytes Auto (Bld) [#/Vo l]Ordered By: Felix Simpson on 07-11-2024 Lymphocytes (Bld) [#/Vol] Lymphocytes [#/volume] in Blood by Automated count 1.00-4.8 [facility] Lymphocytes [#/volume] in Bl ood by Automated countOrdered By: Felix Simpson on 07-11-2024 Lymphocytes (Bld) [#/Vol] 2.2 10*3/uL Normal 1.00-4.8 [facility] Comment on above: Performed By: #### H EPATIC, LIPASE, BMP, CBC #### [address] Lymphocytes/100 WBC Auto (Bl d)Ordered By: Felix Simpson on 07-11-2024 Lymphocytes/100 WBC (Bld) Lymphocytes/100 leukocytes in Blood by Automated count . [facility] Lymphocytes/100 leukocytes i n Blood by Automated countOrdered By: Felix Simpson on 07-11-2024 Lymphocytes/100 WBC (Bld) 25.0 % Normal . [facility] Comment on above: Performed By: #### H EPATIC, LIPASE, BMP, CBC #### [facility] [address] MCH Auto (RBC) [Entitic mass ]Ordered By: Felix Simpson on 07-11-2024 MCH (RBC) [Entitic mass] MCH [Entitic ma ss] by Automated count 24.7-34.3 [facility] MCH [Entitic mass] by Automa lashon countOrdered By: Felix Simpson on 07-11-2024 MCH (RBC) [Entitic mass] 29.5 pg Normal 24.7-34.3 [facility] Comment on above: Performed By: #### H EPATIC, LIPASE, BMP, CBC #### [facility] [address] MCHC Auto (RBC) [Mass/Vol]Or dered By: Felix Simpson on 07-11-2024 MCHC (RBC) [Mass/Vol] 33.2 g/dL 32.0-35.0 [facility] MCHC (RBC) [Mass/Vol] MCHC [Mass/volume] by Automated count 32.0-35.0 [facility] MCV Auto (RBC) [Entitic vol] Ordered By: Felix Simpson on 07-11-2024 MCV (RBC) [Entitic vol] MCV [Entitic vol ume] by Automated count 80-100 [facility] MCV [Entitic volume] by Auto mated countOrdered By: Felix Simpson on 07-11-2024 MCV (RBC) [Entitic vol] 88.9 fL Normal 80-100 [facility] Comment on above: Performed By: #### H EPATIC, LIPASE, BMP, CBC #### [facility] [address] Monocyte distribution width [Entitic volume] in Blood by AutomatedOrdered By: Felix Simpson on 07-11-2024 Monocyte distribution width Auto (Bld) [Entitic vol] 16.73 % 0.00-20.00 [facility] Monocyte distribution width Auto (Bld) [Entitic vol] Monocyte distribution width [Entitic volume] in Blood by Automated 0.00-20.00 [facility] Monocytes Auto (Bld) [#/Vol] Ordered By: Felix Simpson on 07-11-2024 Monocytes (Bld) [#/Vol] Automated blood monocyte count High 0.0-0.8 [facility] Monocytes/100 WBC Auto (Bld) Ordered By: Felix Simpson on 07-11-2024 Monocytes/100 WBC (Bld) Automated monocyte % . [facility] Mucus [Presence] in Urine by AutomatedOrdered By: Felix Simpson on 07-11-2024 Mucus Auto Ql (U) 3+ [LPF] Abnormal [facility] Mucus Auto Ql (U) Mucus [Presence] in Urine by Automated Abnormal [facility] Neutrophils Auto (Bld) [#/Vo l]Ordered By: Felix Simpson on 07-11-2024 Neutrophils (Bld) [#/Vol] Neutrophils [#/volume] in Blood by Automated count 1.8-7.7 [facility] Neutrophils [#/volume] in Bl ood by Automated countOrdered By: Felix Simpson on 07-11-2024 Neutrophils (Bld) [#/Vol] 5.5 10*3/uL Normal 1.8-7.7 [facility] Comment on above: Performed By: #### H EPATIC, LIPASE, BMP, CBC #### [facility] [address] Neutrophils/100 WBC Auto (Bl d)Ordered By: Felix Simpson on 07-11-2024 Neutrophils/100 WBC (Bld) Automated neutrophil % . [facility] Nitrite Test strip Ql (U)Ord ered By: Felix Simpson on 07-11-2024 Nitrite Ql (U) Negative Negative [facility] Nitrite Ql (U) Nitrite [Presence] i n Urine by Test strip Negative [facility] No Panel InformationOrdered By: Felix Simpson on 07-11-2024 Estimated GFR (CKD-EPI) > 60.0 mL/Min [facility] Creatinine Clearance (Chem 123.53 [facility] Nucleated erythrocytes [Pres ence] in Blood by Automated countOrdered By: Felix Simpson on 07-11-2024 Nucleated RBC Auto Ql (Bld) 0.0 /100{WBC} 0-0.5 [facility] Nucleated RBC Auto Ql (Bld) Nucleated erythrocytes [Presence] in Blood by Automated count 0-0.5 [facility] Platelet mean volume Auto (B ld) [Entitic vol]Ordered By: Felix Simpson on 07-11-2024 Platelet mean volume (Bld) [Entitic vol] Platelet mean volume [Entitic volume] in Blood by Automated count 6.3-10.7 [facility] Platelet mean volume [Entiti c volume] in Blood by Automated countOrdered By: Felix Simpson on 07-11-2024 Platelet mean volume (Bld) [Entitic vol] 8.8 fL Normal 6.3-10.7 [facility] Comment on above: Performed By: #### H EPATIC, LIPASE, BMP, CBC #### [facility] [address] [place] [address] Platelets Auto (Bld) [#/Vol] Ordered By: Felix Simpson on 07-11-2024 Platelets (Bld) [#/Vol] Platelets [#/vol ume] in Blood by Automated count 150-450 [facility] Platelets [#/volume] in Bloo d by Automated countOrdered By: Felix Simpson on 07-11-2024 Platelets (Bld) [#/Vol] 300 10*3/uL Normal 150-450 [facility] Comment on above: Performed By: #### H EPATIC, LIPASE, BMP, CBC #### [facility] [address] [place] [address] Potassium [Moles/volume] in Serum or PlasmaOrdered By: Felix Simpson on 07-11-2024 Potassium [Moles/Vol] 3.7 mmol/L Normal 3.5-5.1 [facility] Comment on above: Performed By: #### H EPATIC, LIPASE, BMP, CBC #### [facility] [address] [place] [address] Potassium [Moles/Vol] Potassium [Moles/volume] in Serum or Plasma 3.5-5.1 [facility] Protein Test strip (U) [Mass /Vol]Ordered By: Felix Simpson on 07-11-2024 Protein (U) [Mass/Vol] Protein [Mass/vol ume] in Urine by Test strip High Negative [facility] Protein [Mass/volume] in Ser um or PlasmaOrdered By: Felix Simpson on 07-11-2024 Protein [Mass/Vol] 7.6 g/dL Normal 6.4-8.9 [facility] Comment on above: Performed By: #### H EPATIC, LIPASE, BMP, CBC #### [address] Protein [Mass/Vol] Protein [Mass/volume ] in Serum or Plasma 6.4-8.9 [facility] Protein [Mass/volume] in Uri ne by Test stripOrdered By: Felix Simpson on 07-11-2024 Protein (U) [Mass/Vol] 50 mg/dL High Negative [facility] Comment on above: Order Comment: Name Collection Type:: Clean-Voided Midstream Performed By: #### U HCG, ADDONUAPLUS #### [address] RBC Auto (Bld) [#/Vol]Ordere d By: Felix Simpson on 07-11-2024 RBC (Bld) [#/Vol] Erythrocytes [#/volume] in Blood by Automated count 3.60-5.00 [facility] Serum globulin measurement b y calculation (mass/volume)Ordered By: Felix Simpson on 07-11-2024 Globulin (S) [Mass/Vol] 3.0 g/dL Normal [facility] Comment on above: Performed By: #### H EPATIC, LIPASE, BMP, CBC #### [facility] [address] [place] [address] Serum or plasma albumin/glob ulin mass ratioOrdered By: Felix Simpson on 07-11-2024 Albumin/Globulin [Mass ratio] 1.5 {ratio} Normal [facility] Comment on above: Performed By: #### H EPATIC, LIPASE, BMP, CBC #### [address] Albumin/Globulin [Mass ratio] Serum or plasma albumin/globulin mass ratio [facility] Serum or plasma anion gap de terminationOrdered By: Felix Simpson on 07-11-2024 Anion gap [Moles/Vol] 9.5 mmol/L Normal 6.0-15.0 [facility] Comment on above: Performed By: #### H EPATIC LIPASE, BMP, CBC #### [facility] [address] Anion gap [Moles/Vol] Serum or plasma an ion gap determination 6.0-15.0 [facility] Serum or plasma non-glucuron idated bilirubin measurement (mass/volume)Ordered By: Felix Simpson on 07-11-2024 Bilirubin.indirect [Mass/Vol] 0.7 mg/dL [facility] Bilirubin.indirect [Mass/Vol] Serum or plasma non-glucuronidated bilirubin measurement (mass/volume) [facility] Sodium [Moles/volume] in Ser um or PlasmaOrdered By: Felix Simpson on 07-11-2024 Sodium [Moles/Vol] 134 mmol/L Low 136-145 [facility] Comment on above: Performed By: #### H EPATANIYA LIPASE, BMP, CBC #### [facility] [address] Sodium [Moles/Vol] Sodium [Moles/volume ] in Serum or Plasma Low 136-145 [facility] Specific gravity Test strip (U) [Rel density]Ordered By: Felix Simpson on 07-11-2024 Specific gravity (U) [Rel density] 1.032 High 1.001-1.030 [facility] Specific gravity (U) [Rel density] Specific gravity of Urine by Test strip High 1.001-1.030 [facility] Urea nitrogen [Mass/volume] in Serum or PlasmaOrdered By: Felix Simpson on 07-11-2024 Urea nitrogen [Mass/Vol] 17 mg/dL Normal 04-14 [facility] Comment on above: Performed By: #### H EPATANIYA LIPASE, BMP, CBC #### [facility] [address] [place] [id number] [place] Urea nitrogen [Mass/Vol] Urea nitrogen [Mass/volume] in Serum or Plasma 04-14 [facility] Urine appearanceOrdered By: Felix Simpson on 07-11-2024 Appearance (U) Cloudy Critically abnormal Clear [facility] Comment on above: Order Comment: Name Collection Type:: Clean-Voided Midstream Performed By: #### U HCG, ADDONUAPLUS #### [facility] [address] Urobilinogen Test strip (U) [Mass/Vol]Ordered By: Felix Simpson on 07-11-2024 Urobilinogen (U) [Mass/Vol] Normal mg/dL Normal [facility] Urobilinogen (U) [Mass/Vol] Urobilinogen [Mass/volume] in Urine by Test strip Normal [facility] WBC Auto (Bld) [#/Vol]Ordere d By: Felix Simpson on 07-11-2024 WBC (Bld) [#/Vol] Leukocytes [#/volume ] in Blood by Automated count 3.8-11.6 [facility] pH Test strip (U)Ordered By: Felix Simpson on 07-11-2024 pH (U) pH of Urine by Test strip 5.0-9.0 [facility] pH of Urine by Test stripOrd ered By: Felix Simpson on 07-11-2024 pH (U) 6.0 [pH] Normal 5.0-9.0 [facility] Comment on above: Order Comment: Name Collection Type:: Clean-Voided Midstream Performed By: #### U HCG, ADDONUAPLUS #### [facility] [address] Automated erythrocytes count in urine sediment (number/area)Ordered By: Elias Rogers on 01-15-2024 RBC Auto (Urine sed) [#/Area] 0-1 [HPF] 0-4 [facility] Automated leukocytes count i n urine sediment (number/area)Ordered By: Elias Rogers on 01-15-2024 WBC Auto (Urine sed) [#/Area] 10-19 [HPF] 0-4 [facility] Bilirubin Test strip Ql (U)O rdered By: Elias Rogers on 01-15-2024 Bilirubin Ql (U) Negative Negative [facility] Color Auto (U)Ordered By: Cali Rogers on 01-15-2024 Color (U) Yellow Yellow [facility] HCG ( test) IA.rapi d Ql (U)Ordered By: ALEX AZUL on 01-15-2024 HCG ( test) Ql (U) Negative [facility] Ketones Auto test strip (U) [Mass/Vol]Ordered By: Elias Rogers on 01-15-2024 Ketones (U) [Mass/Vol] Trace Negative [facility] - UrinalysisOrder ed By: Elias Rogers on 01-15-2024 Hyaline casts LM Ql (Urine sed) 0-1 [LPF] 0-8 [facility] Nitrite Test strip Ql (U)Ord ered By: Elias Rogers on 01-15-2024 Nitrite Ql (U) Negative Negative [facility] Protein Auto test strip (U) [Mass/Vol]Ordered By: Elias Rogers on 01-15-2024 Protein (U) [Mass/Vol] Negative Negative [facility] Specific gravity Auto test s trip (U) [Rel density]Ordered By: Elias Rogers on 01-15-2024 Specific gravity (U) [Rel density] 1.028 1.001-1.030 [facility] Squamous epithelial cells de tection in urine sediment by light microscopyOrdered By: Elias Rogers on 01-15-2024 Epithelial cells.squamous LM Ql (Urine sed) 5-9 [HPF] 0-2 [facility] Urine bacteria detection by automated methodOrdered By: Elias Rogers on 01-15-2024 Bacteria Auto Ql (U) 1+ None Seen [facility] Urine clarity by refractomet ry automatedOrdered By: Elias Rogers on 01-15-2024 Clarity Refractometry automated (U) Clear Clear [facility] Urine glucose measurement by automated test strip (mass/volume)Ordered By: Elias Rogers on 01-15-2024 Glucose Auto test strip (U) [Mass/Vol] Normal mg/dL Normal [facility] Urine hemoglobin detection b y automated test stripOrdered By: Elias Rogers on 01-15-2024 Hemoglobin Auto test strip Ql (U) Negative Negative [facility] Urine leukocyte esterase det ection by automated test stripOrdered By: Elias Rogers on 01-15-2024 Leukocyte esterase Auto test strip Ql (U) 2+ Negative [facility] Urobilinogen Auto test strip (U) [Mass/Vol]Ordered By: Elias Rogers on 01-15-2024 Urobilinogen (U) [Mass/Vol] Normal mg/dL Normal [facility] pH Auto test strip (U)Ordere d By: Elias Rogers on 01-15-2024 pH (U) 6.0 [pH] 5.0-9.0 [facility] Automated erythrocytes count in urine sediment (number/area)Ordered By: Cecilio Brody on 10-14-2023 RBC Auto (Urine sed) [#/Area] 10-19 [HPF] 0-4 [facility] Automated leukocytes count i n urine sediment (number/area)Ordered By: Cecilio Brody on 10-14-2023 WBC Auto (Urine sed) [#/Area] 5-9 [HPF] 0-4 [facility] Bilirubin Test strip Ql (U)O rdered By: Cecilio Brody on 10-14-2023 Bilirubin Ql (U) Negative Negative [facility] Color Auto (U)Ordered By: Alexandra Brody on 10-14-2023 Color (U) Yellow Yellow [facility] HCG ( test) IA.rapi d Ql (U)Ordered By: Cecilio Brody on 10-14-2023 HCG ( test) Ql (U) Negative [facility] Ketones Auto test strip (U) [Mass/Vol]Ordered By: Cecilio Brody on 10-14-2023 Ketones (U) [Mass/Vol] Negative Negative [facility] Laboratory - UrinalysisOrder ed By: Cecilio Brody on 10-14-2023 Hyaline casts LM Ql (Urine sed) 0-8 [LPF] 0-8 [facility] Nitrite Test strip Ql (U)Ord ered By: Cecilio Brody on 10-14-2023 Nitrite Ql (U) Negative Negative [facility] Protein Auto test strip (U) [Mass/Vol]Ordered By: Cecilio Brody on 10-14-2023 Protein (U) [Mass/Vol] Negative Negative [facility] Specific gravity Auto test s trip (U) [Rel density]Ordered By: Cecilio Brody on 10-14-2023 Specific gravity (U) [Rel density] 1.022 1.001-1.030 [facility] Squamous epithelial cells de tection in urine sediment by light microscopyOrdered By: Cecilio Brody on 10-14-2023 Epithelial cells.squamous LM Ql (Urine sed) 3-4 [HPF] 0-2 [facility] Trichomonas vaginalis detect ion by wet preparationOrdered By: Cecilio Brody on 10-14-2023 T. vaginalis Wet prep Ql (Unsp spec) [facility] Urine bacteria detection by automated methodOrdered By: Cecilio Brody on 10-14-2023 Bacteria Auto Ql (U) None seen None Seen [facility] Urine clarity by refractomet ry automatedOrdered By: Cecilio Brody on 10-14-2023 Clarity Refractometry automated (U) Clear Clear [facility] Urine glucose measurement by automated test strip (mass/volume)Ordered By: Cecilio Brody on 10-14-2023 Glucose Auto test strip (U) [Mass/Vol] Normal mg/dL Normal [facility] Urine hemoglobin detection b y automated test stripOrdered By: Cecilio Brody on 10-14-2023 Hemoglobin Auto test strip Ql (U) Negative Negative [facility] Urine leukocyte esterase det ection by automated test stripOrdered By: Cecilio Brody on 10-14-2023 Leukocyte esterase Auto test strip Ql (U) 2+ Negative [facility] Urobilinogen Auto test strip (U) [Mass/Vol]Ordered By: Cecilio Brdoy on 10-14-2023 Urobilinogen (U) [Mass/Vol] Normal mg/dL Normal [facility] pH Auto test strip (U)Ordere d By: Cecilio Brody on 10-14-2023 pH (U) 6.0 [pH] 5.0-9.0 [facility] Automated erythrocytes count in urine sediment (number/area)Ordered By: Felix Simpson on 08-26-2023 RBC Auto (Urine sed) [#/Area] 3-4 [HPF] 0-4 [facility] Automated leukocytes count i n urine sediment (number/area)Ordered By: Felix Simpson on 08-26-2023 WBC Auto (Urine sed) [#/Area] 5-9 [HPF] 0-4 [facility] Bacteria identified Aer cx N om (Genital specimen)Ordered By: Felix Simpson on 08-26-2023 Genital Culture Gardnerella vaginalis [facility] Bilirubin Test strip Ql (U)O rdered By: Felix Simpson on 08-26-2023 Bilirubin Ql (U) Negative Negative [facility] Color Auto (U)Ordered By: Drew Simpson on 08-26-2023 Color (U) Yellow Yellow [facility] Fungal cultureOrdered By: Drew Simpson on 08-26-2023 Fungus identified Cx Nom (Unsp spec) [facility] HCG ( test) IA.rapi d Ql (U)Ordered By: Felix Simpson on 08-26-2023 HCG ( test) Ql (U) Negative [facility] Ketones Auto test strip (U) [Mass/Vol]Ordered By: Felix Simpson on 08-26-2023 Ketones (U) [Mass/Vol] Negative Negative [facility] Laboratory - Microbiology an d Antimicrobial susceptibilityOrdered By: Felix Simpson on 08-26-2023 C. trachomatis DNA LEV+probe Ql (Unsp spec) Negative Negative [facility] N. gonorrhoeae DNA LEV+probe Ql (Unsp spec) Negative Negative [facility] Comment on above: Performed at: = - [address] [id number] Director: Mavis Sow MD, Phone: [phone] Laboratory - UrinalysisOrder ed By: Felix Simpson on 08-26-2023 Hyaline casts LM Ql (Urine sed) 0-8 [LPF] 0-8 [facility] Nitrite Test strip Ql (U)Ord ered By: Felix Simpson on 08-26-2023 Nitrite Ql (U) Negative Negative [facility] Protein Auto test strip (U) [Mass/Vol]Ordered By: Felix Simpson on 08-26-2023 Protein (U) [Mass/Vol] Negative Negative [facility] Specific gravity Auto test s trip (U) [Rel density]Ordered By: Felix Simpson on 08-26-2023 Specific gravity (U) [Rel density] 1.020 1.001-1.030 [facility] Squamous epithelial cells de tection in urine sediment by light microscopyOrdered By: Felix Simpson on 08-26-2023 Epithelial cells.squamous LM Ql (Urine sed) 3-4 [HPF] 0-2 [facility] Trichomonas vaginalis detect ion by wet preparationOrdered By: Felix Simpson on 08-26-2023 T. vaginalis Wet prep Ql (Unsp spec) [facility] Urine bacteria detection by automated methodOrdered By: Felix Simpson on 08-26-2023 Bacteria Auto Ql (U) None seen None Seen [facility] Urine clarity by refractomet ry automatedOrdered By: Felix Simpson on 08-26-2023 Clarity Refractometry automated (U) Clear Clear [facility] Urine culture routineOrdered By: Felix Simpson on 08-26-2023 Bacteria identified Cx Nom (U) 2 Days [facility] Urine glucose measurement by automated test strip (mass/volume)Ordered By: Felix Simpson on 08-26-2023 Glucose Auto test strip (U) [Mass/Vol] Normal mg/dL Normal [facility] Urine hemoglobin detection b y automated test stripOrdered By: Felix Simpson on 08-26-2023 Hemoglobin Auto test strip Ql (U) 2+ Negative [facility] Urine leukocyte esterase det ection by automated test stripOrdered By: Felix Simpson on 08-26-2023 Leukocyte esterase Auto test strip Ql (U) 1+ Negative [facility] Urobilinogen Auto test strip (U) [Mass/Vol]Ordered By: Felix Simpson on 08-26-2023 Urobilinogen (U) [Mass/Vol] Normal mg/dL Normal [facility] pH Auto test strip (U)Ordere d By: Felix Simpson on 08-26-2023 pH (U) 5.5 [pH] 5.0-9.0 [facility] Automated erythrocytes count in urine sediment (number/area)Ordered By: Aura Brown on 12-20-2022 RBC Auto (Urine sed) [#/Area] 5-9 [HPF] 0-4 [facility] Automated leukocytes count i n urine sediment (number/area)Ordered By: Aura Brown on 12-20-2022 WBC Auto (Urine sed) [#/Area] 50-100 [HPF] 0-4 [facility] Bilirubin Test strip Ql (U)O rdered By: Aura Brown on 12-20-2022 Bilirubin Ql (U) Negative Negative [facility] Color Auto (U)Ordered By: Valdez Brown on 12-20-2022 Color (U) Yellow Yellow [facility] Fungal cultureOrdered By: Valdez Brown on 12-20-2022 Fungus identified Cx Nom (Unsp spec) [facility] HCG ( test) IA.rapi d Ql (U)Ordered By: Aura Brown on 12-20-2022 HCG ( test) Ql (U) Positive [facility] Ketones Auto test strip (U) [Mass/Vol]Ordered By: Aura Brown on 12-20-2022 Ketones (U) [Mass/Vol] Negative Negative [facility] Laboratory - UrinalysisOrder ed By: Aura Brown on 12-20-2022 Hyaline casts LM Ql (Urine sed) 0-8 [LPF] 0-8 [facility] Nitrite Test strip Ql (U)Ord ered By: Aura Borwn on 12-20-2022 Nitrite Ql (U) Positive Negative [facility] Protein Auto test strip (U) [Mass/Vol]Ordered By: Aura Brown on 12-20-2022 Protein (U) [Mass/Vol] Negative Negative [facility] Specific gravity Auto test s trip (U) [Rel density]Ordered By: Aura Brown on 12-20-2022 Specific gravity (U) [Rel density] 1.019 1.001-1.030 [facility] Squamous epithelial cells de tection in urine sediment by light microscopyOrdered By: Aura Bronw on 12-20-2022 Epithelial cells.squamous LM Ql (Urine sed) 5-9 [HPF] 0-2 [facility] Trichomonas vaginalis detect ion by wet preparationOrdered By: Aura Brown on 12-20-2022 T. vaginalis Wet prep Ql (Unsp spec) [facility] Urine bacteria detection by automated methodOrdered By: Aura Brown on 12-20-2022 Bacteria Auto Ql (U) 2+ None Seen [facility] Urine clarity by refractomet ry automatedOrdered By: Aura Brown on 12-20-2022 Clarity Refractometry automated (U) Cloudy Clear [facility] Urine glucose measurement by automated test strip (mass/volume)Ordered By: Aura Brown on 12-20-2022 Glucose Auto test strip (U) [Mass/Vol] Normal mg/dL Normal [facility] Urine hemoglobin detection b y automated test stripOrdered By: Aura Brown on 12-20-2022 Hemoglobin Auto test strip Ql (U) Negative Negative [facility] Urine leukocyte esterase det ection by automated test stripOrdered By: Aura Brown on 12-20-2022 Leukocyte esterase Auto test strip Ql (U) 4+ Negative [facility] Urobilinogen Auto test strip (U) [Mass/Vol]Ordered By: Aura Brown on 12-20-2022 Urobilinogen (U) [Mass/Vol] Normal mg/dL Normal [facility] pH Auto test strip (U)Ordere d By: Aura Brown on 12-20-2022 pH (U) 5.5 [pH] 5.0-9.0 [facility] Automated erythrocytes count in urine sediment (number/area)Ordered By: Lilliam Linares on 08-22-2022 RBC Auto (Urine sed) [#/Area] 3-4 [HPF] 0-4 [facility] Automated leukocytes count i n urine sediment (number/area)Ordered By: Lilliam Linares on 08-22-2022 WBC Auto (Urine sed) [#/Area] 20-49 [HPF] 0-4 [facility] Bilirubin Test strip Ql (U)O rdered By: Lilliam Linares on 08-22-2022 Bilirubin Ql (U) Negative Negative [facility] Casts typing in urine sedime nt by light microscopyOrdered By: Lilliam Linares on 08-22-2022 Casts LM Nom (Urine sed) None seen [LPF] None S een [facility] Color Auto (U)Ordered By: Yadi Linares on 08-22-2022 Color (U) Yellow Yellow [facility] HCG ( test) IA.rapi d Ql (U)Ordered By: Lilliam Linares on 08-22-2022 HCG ( test) Ql (U) Negative [facility] Ketones Auto test strip (U) [Mass/Vol]Ordered By: Lilliam Linares on 08-22-2022 Ketones (U) [Mass/Vol] Trace Negative [facility] Laboratory - UrinalysisOrder ed By: Lilliam Linares on 08-22-2022 Hyaline casts LM Ql (Urine sed) 0-8 [LPF] 0-8 [facility] Nitrite Test strip Ql (U)Ord ered By: Lilliam Linares on 08-22-2022 Nitrite Ql (U) Negative Negative [facility] Protein Auto test strip (U) [Mass/Vol]Ordered By: Lilliam Linares on 08-22-2022 Protein (U) [Mass/Vol] Negative Negative [facility] Specific gravity Auto test s trip (U) [Rel density]Ordered By: Lilliam Linares on 08-22-2022 Specific gravity (U) [Rel density] 1.019 1.001-1.030 [facility] Squamous epithelial cells de tection in urine sediment by light microscopyOrdered By: Lilliam Linares on 08-22-2022 Epithelial cells.squamous LM Ql (Urine sed) 5-9 [HPF] 0-2 [facility] Trichomonas vaginalis detect ion in urine sediment by light microscopyOrdered By: Lilliam Linares on 08-22-2022 T. vaginalis LM Ql (Urine sed) 0-1 [HPF] None Seen [facility] Urine bacteria detection by automated methodOrdered By: Lilliam Linares on 08-22-2022 Bacteria Auto Ql (U) None seen None Seen [facility] Urine clarity by refractomet ry automatedOrdered By: Lilliam Linares on 08-22-2022 Clarity Refractometry automated (U) Clear Clear [facility] Urine glucose measurement by automated test strip (mass/volume)Ordered By: Lilliam Linares on 08-22-2022 Glucose Auto test strip (U) [Mass/Vol] Normal mg/dL Normal [facility] Urine hemoglobin detection b y automated test stripOrdered By: Lilliam Linares on 08-22-2022 Hemoglobin Auto test strip Ql (U) Negative Negative [facility] Urine leukocyte esterase det ection by automated test stripOrdered By: Lilliam Linares on 08-22-2022 Leukocyte esterase Auto test strip Ql (U) 4+ Negative [facility] Urine sediment renal epithel ial cell count by microscopy (number/high power field)Ordered By: Lilliam Linares on 08-22-2022 Epithelial cells.renal LM.HPF (Urine sed) [#/Area] None seen [HPF] 0-1 [facility] Urobilinogen Auto test strip (U) [Mass/Vol]Ordered By: Lilliam Linares on 08-22-2022 Urobilinogen (U) [Mass/Vol] Normal mg/dL Normal [facility] pH Auto test strip (U)Ordere d By: Lilliam Linares on 08-22-2022 pH (U) 6.0 [pH] 5.0-9.0 [facility] XR KNEE LT 4V or >on 022 [...] by: Yared JOYNER Date: 2022-06-07 02:52 Normal [facility] Coding Summaryon 08-29-2021 Coding Summary HTMLBase 64 FxobphctSCu7oYa+PGhlYW Q+NB5UCIHoX45htQVmwO8J F3rUIR7LBVMXJPRKZD1WKY 3ipXZ5WIwvH2IgvgDt RupelMNzWR90QQl6KLC6tR eeSRaqaX5aqHArC7r4WdVv PG48eJ61JEwbRWPaBtK3Sa ZpbjsgbWFy N0rlAnEmrKBpEnw+PHRhYm xlIHdpZHRoPScxMDAlJyBz hTjqPR5dTh1jOMPeTJPerF xhcHNlOiBj o5miTXCcAHxeWL8rvRxyH6 UcdFQ4RGQza4j4Dp63nXL+ EUXkNNG1zGyvFFuze971Te Vli0xcZLB4 jANqUEjyIYL1X06ri5R7EC CtEXLaJMO4bWP3xP9qjAdo cepwX2GdfJDbVmL3MQY1vM RwjX8mqGur xtiriV7aGtd+F31LUF2EVC FILM4AOcf4O7RoOmdxcVD+ ZD93PLKcCF59sCHayIZgf4 xwvFb5XfNb PAYiVGE3eDvnCBdxh5AaKD WxC85egQGxq7T2CAOtkJmv jXPeVcQyiYB6zJ9bGCjpua wqx3evxowt Mxesa0kxct26bB07K67qMH mxOFKxSHS1LCGgWMZmmNin ha8xjS8fBx9+MKrcm0sxm6 wixSx8NuJb ZWIxsvDxyPueMHL0p7QjCw 21L0DqqOffg8OkLkv0hk28 uCNrx7V0aLM5CHmqJWQakL 9uGTffGdX4 HAPwRlQmbM46wSCkQHxaMp 0qoHzywRtpJP2iGKTejcep WRIflK1wEUKaiXXgkRdiKD 4wNTBpbjtm h308YtFfBAV0ZCPwpTPtK1 WciR9rYrCyWUYmEJNhI1Eh kMZeTChrU544UIfiJsK4US RibwPjF8Xp UHGagZucTjH2d0J7Uk8Qk4 ImqgmnSOO2EGqcSHTmZxV4 VtFuAuJ5P2LvWdl2NXItoF agNH8uZ4Ty UPWpejxefoileAJ1WIEtVA LibU32aBUnFGquTu7ui5T5 j989YBPaUVXeoN52Ey5gnY ogMTBwdCBU sE9wglwwt7cagzqdUnZuWW BmYOy7CXq2GUMpgJjrHiBs WEX6IlV1TDU8iNWpqU5saE uklhlmmR5h Oyc+F90wpM6rHZV0VMC2pw jlDAPczeXaIP97PQ40B5Uh PjwvdGFibGU+PGRpdiBzdH qxGL1pKbNi e8auh4UrKFctR8DaBAXjLO lsOrt7RQXtEIQ1yRT2nT5z NAMjKVkcp5L7rRJ3X0Vhph Yufn6fg6tr JQCnMQvhG04ofIMek9S9IZ NblWH5HJIhfSzhFcIdqN38 Oyc+WWPgpYubj1IyAbwke3 zix9fziTb2 ZdZtXHKoxxLnwQbdZMI0i3 EiBt88N62sGHgxCKNpIPLe LATxBEJxjYyrsn2jmY0uUw 8+PGNvbCB3 kGL6zO1pHVZqAaD7YObgP7 44LbHycYAlMbywf3nyd1xa fHb8XvWfBEBtjzWkoGvhLN P1w6KiOb52 A85cEKayJJErOMTiJOMgQA UwjGrzqs3bdA2oHp2+PC9j p5zddg34tR65oNI+PHRkIH L0dZucVJsm EHDlhB2gAAuoWpW1DPSuHk VbvW46kXXzSOxwIb5leChp rHgvOK8sUVMnrcqti572Vu Lbx3zgHTVy pTGdKRtcYUA0N17py4B4GQ QgQGLiSOI4eTJ1hW9bvHrz bjogbGVmdDsgdmVydGljYW kjLPnkN015 IHRvcDsnPlBhdGllbnQgTm ZxLVk7J8JsAsl4NEPqdIza XV2coJVoXPkjAf6iyFrppY clVA5mCPCi nawic927DkKis8ygNQHbjG YtXMflIMF6S33gk0Q3VWUl IJVnLXC3pVI9oV6laGcvwy ogbGVmdDsg vuWoaYesXNsiXAxmB414GY RvcDsnPkJpcnRoIERhdGU6 JY32VJ94nPDsi7A0hXO1C5 BhZGRpbmct uqtxtTJ8WIMrRSOjdZ95Av 2amXmmOn7wBRYnMYP7FWVt eUFvN5OhuZ9aJwXqCVWlVX CoI5RcgZVm HTfqV641GVfsMoO2REVygb DjB2XnIDEliLvhJfT8d6X2 Eg7YP2P4EW78SJ49zYPab5 I7cHZ7B6Kf YFRgykcecpqmbQQ2UEAgKU KfrI70Uw1zmQfrDy2fMLZa AYN8GWVaqQVsH1IbbM8kWt AjMDAwMDAw K3RxnVUhIAonG648RTkyYt S4VSQbjpDmE6SdAUJreHsq ZiN0t9Q8Vb4MSYd0GV57AY 68hZUbw8N2 dKQ4X0IxYHMixensvyhakO S1BQCqQVMslR76It9rpZul Ei3uLYGePXY9VBHpfLNyB6 XhxL6lMrCz XNAaAJMkE0VgjTBgQOmzX3 66ZXbwIbO3CYQqbnZgP1Mt ICJalAuuGoP2k3T6Zp3SKQ KdNC53FEM6 nVM8QG77HF39P6NtFyujxW FibGU+PHRhYmxlIHdpZHRo EJcxPKZgUoZjxCtkAY6lCt 9yZGVyLWNv uOkunTYaDjRrn4biJRFeIT jzLT0rlOcmL0OxaLS9VIIm c8a8Sv42X88sH1MgrZV+PG NgcAI0yAN8 aX5tYiUtWvC2TLvxB524Ay AjaJHiIxxhz7uho6wvqTw8 YjY4DQSphxUigGejIKN7o7 SaOk46F71m IHdpZHRoPSIxNSUiIHZhbG rheu7ipD0hUg2+PGNvbCB3 vBG7qY8tFxPeQdH6MWylZ2 49InRvcCIv Xxclr3csz0rzcYv1LlRfMX OdzmEzfRvpXSD9a0BgVh37 M8UteZkam8HdPpm0kz15nP Zvz0K2bFL9 Y8NfBHFrrgqadAJyeImkOU 6vKZNugyjsWOFfjK8iXGTg P4c0DfZfEaM2HDaqD0Yqrz Z7UNLvwEUx DArvLEP0D46vv6D3DYEuQM PnCWA6oSE4cT6abOqrlcyl bGVmdDsgdmVydGljYWwtYW lkQ792LSDy fZuhDLDdhN4vXMTziCJdeF ytZF7rTJSvlvtdTscRF5RH NqxjPTBHHMSWWUI5V2EfBn e9KBXflDyh XB6rnBAwTWwiOh0vxLjssK flGN6fPQAznlrjEZCerH6k YJSauDClxKtmKG1tPJXybd ywt279RxAl JIN8BZSttPKxN6GkeY1zQo TsYVNvAXSeH8FtuRTfIVyh L931VUcrCiX6IYRbdbWjE7 FsLWFsaWdu GgF9e2A0Fg5bBM5hSr8uGI FgBZ90IF06dOKva1L0uGZ9 P4VlQGRvrtnkplrfyVN7BO AqAFFklE21 wOSvIImgKa1um4A7h901JD BtPGQhvY23Lx4pnGlnSFWi hQCNeA2rrqcps2fgicorDk AwMDAwMDt0 HWf0QNTquXoeUxAtXHA5Mc K6DHN9kHRfsB2nbZizypmd pA0wKbl+IuPfTGYlvwR8T0 QfZxs3PKEl sKueVR1cpENpIIeePy4qdA jbnHmrTT8mCIPvphznSZCq xW5bZONymLOvkAmuCH5pFE Kczvgaq304 VqGjCYC4STRmqPYqR7JztD 7uJwZeAISxJSPuV4LasLJc XRlmG636TCniHdT7OHLylc ZxF8ZzUGNs jHxvCxJ1t6O2Nl4IVX8NLD X6O8RsToy2SLLwcBhoRF8b kIDoMNkoYt5bnMktfAzpTO 4wNTBpbjtw MKVceA4vKYLvnYMjfBziTS 8fAEQjwbssp778QdWmHOS1 QQGfnWGkG7HxhA4bBaWpJA SwNBVdJ3Uv pINfVPweN035KCzfWtH2TQ MasfMgK2AmHYHngJyfUpZ1 c7Q8Dh5CERxuzSH+PC90cj 73Q3SjXrrl Ajh9GAUnGHV2iXF0wH7oZB YuXVplj9S0eHA8B4PpbvDe wk2vg0kjNVRnVPowS23nrL Bur2G0AKVg xTN2IMAsqZtzSeJbbQ43Hm c+KALwrIqoz6YvBzbxe1gx p2yziUy6WoOqUYCxckMlhW qzEMY1y0Sq Dn99O60fOUudOODeYCMzVQ HnDCIiiUpxkh3hdO0lOq2+ LTOgaTO8jAH8eB1lWxJpFh X2EItjS283 KxViwRYzMctuy4dqg4kgaF b1SrIxPLWrjeJmfQjmYTR7 b1IdUu39E0CykHqtl9EkQv b4mr37lSCg j0Y8sVB2C3DnGGNzjxbprS ArqWxxDU1wBEBimgyiQIVu iQ5jMBXgE4p8IiCxPzP6BD clA0TjqdA4 XCGrqEScUQZidETPaK8kri rdi7islkzqAgZfPLYmUYx1 OXr7UGEciIzyTjYpYHI3Uh G6WFA5qAAk dW6dyMpvsxdgxN2gRna+UG a2i2furFRmZX1svLT8VY85 AF92lYFtr8V6wOY3X9NeYB Rpbmctcmln yOM4YGYhSKDizI34Sp7mjJ nuHn0uMSGmXHU2GUTluOYi R3DxtT0kJqPgZXQtEYAcQ4 RleHQtYWxp O200JRxzNzM8EXRazoKsX3 YiAZWphDbqBvF0c9P6Xu3V BY53AU38GI31wYVve8W2gK V7E6PzPQDh qodtrndyeBH6KXKmQSRttI 40Ue5zqIceDr2zZIOfNHF6 QEXilBWeJ5DarD5nGwRmAO XvHNRkQ7Nf nLUzBNcwF497ACpsDnV5AO CdawFdI1DoGFCfhMxgWmB0 y0B4Xt5SBd38CT83HW06mL Kum1X7nAR8 Z8DxAOEdrwvxypnuvKW3AN WzTTKbmI91Wn7qbGeeOt0d EJQoLCI8OTHhgFRsU9YquU 9yOiAjMDAw OKLxP6FqdJBtELhnV377IS hcEhI1SMPfhlSgN4FdQMKo pPyrMlT5u2C2My5LRNjhqt y4R4DoLgde dHI+KI39YJGeBP01yZIabR Rkm3oqgSs0YnHkJZLaAFH0 wBltDZhad3TbWUEfE69foL Rlu4A0JCGp bGx (more content not included)... [facility] Coding Summary HTMLBase 64 AvvvijrcCWx0aNv+PGhlYW Q+MN3WTRKbX35jzDWugS7E O5zQUB6VCOTKUIVURG2HKC 1ogXZ8XUotP1FgflXm CqueqAIoNV09DVx5MZW0yB dnOHdohO5tdMYmR1s7GfBh PQ55fM29QFszCVHgQgV3Jw ZpbjsgbWFy S4mmIyHguSMqNhu+PHRhYm xlIHdpZHRoPScxMDAlJyBz hGqnAM2jTq9uGTSwADDriM xhcHNlOiBj j7laCGTxOFtcKI8ncIdhD4 JmdON7OTRdb6j6Mw99bFR+ CTNbZBN0iRfsSJwyi501Jk Zpp4ynCNB7 cPHpRVxpSGD3J52yt6W3VB SnDLPiEUA2mPL3qD1xwBft wazeN8SowTKbJdB2COI9aH HaaT6fdUkz xdswaU7wFlo+W78GLX0OOR QCTY6YYoj1S5TaZmaleUY+ LU73OHDqJV70hLGsxQVxe1 ovqEc1AzSb SHUzMOD8gLyuZUizi1EhIW FgQ42zrBWnn5W3TAXkgKmq vXThRlCqrCF8tC5bKTbndm apj7zvwlzw Qvzoj4lpjg14zI23Z76fLQ grTVJjUCK9IGRpUCAjuGni mu5tmW3kXl0+JCoeq4yqy3 toiVy8DhTh BIOgkgDcrRsnFUI0g1ApPd 54R8FqxSlei7QtCax3pc63 dVXsu5X7lCC7KAucNVPhiY 3cRNuwYyT5 HOJrTwGtnX85nOFtKTzwBg 0reGvwcVdsCV7aJJTgqwnf XQPriH2jKTUnaBGxkYarEG 4wNTBpbjtm i653ZoXkJJQ6KOBsmZIcE9 NseL0sBuBvEKPnNSUhX6Hq wCRnEIqsN777IPbgLtA7TI FwspFuW9Hr KVNqhAgtBqA3f2T6Hh0Rx2 CgoxngLHU1EHqyABTuTzK5 QqLyZiZ2M9XjNka1TPJrgT uxXJ6mN6Le QXUvvkoiqawveFU3VXGpIE EdzG02zVPiGBjqUl7mq3S3 o619PLCgQNLxtF74Cj8mjT ogMTBwdCBU zX2pdvbkn9nsjdeaYaSrNO FxKPs5SDa8LKHqfKmsVpSe GAS6LaU9SQZ4kZDcjP8ycD kynahrtL3x Oyc+G53bzL0fHPI3CPP0ll rbTSJvsiOkQF78MB63Y4Oq PjwvdGFibGU+PGRpdiBzdH uzXM2aDuIh k4kwn6QrRYiaS9TuGMLdWF zqCqy2GLAsTXH0pVK2mD3c COSgLZkjy6U1iBU8B0Fjlc Zcqd8jz8kr JHZhQLvyT73oaQIly3H5WP GbaXI5KGPdbUnhXrDxyV70 Oyc+QJCalGxhp1VvUgmav5 eet6horJt1 OlZhBDGscaOtmSoiFFS3v4 KvOd77M19oEPtiLRJfHOUf XSOiTWPjrWxpks9zqY4cIm 8+PGNvbCB3 kIC8lA3yZSZpPfI4LYndC6 70OzPxlMHkRfnlc9vit8pp fUd5NfViFYCcujTqcBdpIM N0c9UqRq65 L57vSTrqYETqZVFjTPFxMS ReaCwgre4ieD1jMw7+PC9j n9hqam42yL52eBR+PHRkIH K0jJtdYNyy LFSraC3sCXxjLwJ7KBInNm IubR53sMXbJXriUj9gyAjq bPxjEB2bXKSzceqoa672Yt Jkm8arBLEs kENyRJxdHMS9V42eb0F4XS WfMQOnGKE6vDU6aQ6kiWqc bjogbGVmdDsgdmVydGljYW waTZcdE093 IHRvcDsnPlBhdGllbnQgTm IzADh4F5DlTdy9TVGntZsl JY8gcJWkYKeiZq7ioRpprU kpTP0sEEMe iiesu152LvFzn9drBCQoyB BvBVquXCP6N31qj0T2UDHx TKBmGDQ3tLB7dU7cfOeijl ogbGVmdDsg pdFjoEvyVFzvYDdqW715XY RvcDsnPkJpcnRoIERhdGU6 XY69EG33aAGyj8O2aFI6R1 BhZGRpbmct qurjdAG3PBDsMGDyeE74Wp 5ijVrdMk1iWUFcYWN5FAAv hFFrU9EskA5iCkBgWLVqGM KvZ0EtcHWs WSclU764UKjxQnO4EHYhoo VkC9UgBYPdiGeiAsZ2b6S7 Bz4HB9H5JR11GY76hPVqw6 X8lRE3P4Kb PZWglhflwjavnRG0ZOKkFQ TgjD77Th5nkRcdMt8uVCFv WQS7QDVfzDKcE3SrwA4rPt AjMDAwMDAw F1MaxDTkNZwcT927SFadRx J3JSLkatIrL6VeMLUedYrw GuZ5g0S8Jm4JXTh7XP62ET 10kWCqi8J5 mZX3S2BfVYEowtzztsqhcC M5NKCmIDEqdT40Se4oiTad Be3sKPXjFNA7PTKqfTPeR0 XtuB8xBxQt EZQtMRYcG8DgoUTmMLwkB9 48ZKwrDfH3LVBlwzFoL3Dq IKIvkQdaMjE8n0J2Kz0BJP QpRR21TGA1 nUQ4RQ29OM39U8KfXneaeS FibGU+PHRhYmxlIHdpZHRo RBqvBQVsIiNjjLbiMY6rTo 9yZGVyLWNv ySrsmFGvYiQmg6otIKNdBW gaZZ9kvKttA2VohYC1GUIx d2y4Ve67H59jM2XusFF+PG MdeRD1oCY8 lK2aVjPnAiG7ADesK714Yq WieEKnBaeff9bry0pzaPf8 UiS2VKFxhrXbyCsvYBG7x3 HvLq70W06u IHdpZHRoPSIxNSUiIHZhbG fkpk7vdC8lFx7+PGNvbCB3 dPI7yC8uLxQsIvY5EIrtA2 49InRvcCIv Zvppu1pir9pykOe1RjVfBL YwzmBprQveLFS6h7IxBf46 K4JocWphk3PqIyx5nb45pJ Hhe1A6dCS4 G9OcWHIfpwxwdMFzwGdbRA 9oZXEybnpdCHYhbA1cMZXa W9y1DiOsCsF3EJrlZ2Jtus P1CQApcMTo OPvlGAU1L55sg1Y2THAiRQ ErQBE7iIR1xX7piKbjmmba bGVmdDsgdmVydGljYWwtYW cdD009HSOq aVxiOTAzcZ4rKDBqzAGefS jhBX0iZASnwkgyWcvZJ4KZ DsufREJMJECZAWI8Z6RpGd r4CMEmfDbb WD0asMGiYNlrFk3vrBshoT hzMA3qXSFvlqxuDQFsmL5p BTHndTDmuGriJN4oKGDitg ahh223NzEl QLD4RWYvaZBnX0FadJ9lCy ZdJTUvCVQxR9SadEAePMkk J722OHgxPkQ0YDQtolDbN1 FsLWFsaWdu MdX0q8R5Wg8kYT0eWm9nIN KaFE66GK43sVUma9Q6vVK8 V9IqLTPetzmgrpytlLA4LZ FmDLQrtQ04 aWAnLMnzQs0ip5H5h475KB FhBYTtqO48Xy4ptOisMHGs fELHhO1boamdk9hutpxsIs AwMDAwMDt0 JCw5CJQylUeqYpTaGAP0Ms G8CGN4wWNkrQ6xbOvqtozt gF6zFtm+LyGvZSMxyeJ6F2 JtLgm3IHQs jUkkVS5wgPOzDKtoMx9qzO dmcVyrRA5dQEAanguuUGLf zO7xMFOspWWcgHpjMK8hAE Nqsnfqd768 PsEyXNO8ILEbnGWaK2EzzQ 6xGnTwSFOjGRZvK8BegBCl FHxrF903YQcfMpH5IRQltt IhW3RyRGCh tDeiUlZ0j5C0Ef5YWG2OJI W4J8SwKci4BOZjwVfkUU0i wNTgQCoyCp3spFgsxMktJD 4wNTBpbjtw OWEwuD4vIVGvnFWgfDkqGQ 3xIUXdkedol819KyThLDD0 UKNfrLAuR4VigT1yNpXpSZ UkGLPrW8Sm gFFjQYzyH451JXqpQdQ2CS LobzUsJ5VdRTLzgUrqXsG7 y1U7Fa7BdNYwF0HhM8j5P9 RkPjwvdHI+ EO53HLPqEH83dCUzdHNrb4 pklXg4RqSpDLPlTAX0wMqs UQpxp8UkMSUzA61ieSRag2 K5IHMkpIqv wASlGhYtyUZ0oQ5kOXtzgw vud0jytiwbOsxyv9nnhj33 pY69N40qPBwmTJYeIIKjRM UiIHZhbGln fl3qvP0gZr5+AHQkiGK0qJ K4xO9mJeVyXiJ2PUwvI859 VzIykVJrIkqff0lft2zxeL r1WyBfIEQx piCnaGmjADS7k4ToBd51Y0 9sIHdpZHRoPSIyMCUiIHZh mFzxus1gzX5hPw1+PC9jb2 cgji50mA76 dHI+WBMwCKA1gOesSOqkJI QzpT7dJVksVlM1BSWxVoVl cC38pVRpFMwgAa9zcJqbvT vsAB1dCQFd amnxe129ZaYyr9bvJZYowZ RmAQiiXJL7G99eu6D6RRZs NCXoNIO1dCZ5eP8nzTzcie ogbGVmdDsg qtSnjZypRWjlYHlpI628HB XspRviDcSpgYZhY5pefdYM UK2zTkbbnAA+OJFoKSW1zL xlPSdwYWRk iO4oXLWdD2w1OtQcPfA8NW voR1BjkqK9UGXkdQGmICCd mBQWrW5kngurt4tyshpaBh AwMDAwMDt0 DWc2MPRnsJipVuRzTHY6Hf P8VNZ3vKAojM2ksLhhhgkj yZ6hLni+RklOOjwvdGQ+PH JfAJC3jSsg AZhyFMJroL9kUWBjT8q2Hz XpDhZ1NLavA3FqfrE6LEDm dUKwEAZavWNRdR4ublfuf0 xvcjogIzAw YBGbYJw4JRh7BPRxxByfMz PbQBA4NpT7SLI5rRQpzM4j yMswslgrtB5xEni+TVJOOj wvdGQ+PHRk RLC9dZsmQHfnWUKreW5dWR YkS6y1FrOpQaD8CUswN8Fj yzF6VWAlfGUvGGUrwCQEzU 8hqkmgt4pt sigrGqRhEVWiOVn3QUe3PU PvyOaoCwRvTNA7OaC0BZK9 rGIwwV6taZyrspnlqL4nEp c+TRV6XYF9 SD44RU49V5IgChxvvXPlqD U+PHRhYmxlIHdpZHRoPScx WKEmDtXicGlqYL8mPt3qBB VyLWNvbGxh cHN (more content not included)... [facility] ED Note-Nursingon 08-27-2021 ED Note-Nursing Pt called and spoke with [place]. Pt stated her dog ate her prescription. Script for Flagyl 500 mg 1 tab BID x7 days called into [facility] pharmacy per pt request. [facility] Chlamydia/GC Amplification L Con 08-21-2021 Chlamydia trachomatis, LEV LC Positive Abnormal Negative [facility] Comment on above: Performed By: #### 1 [id number] ####[facility] (DEFAULT)[address] [place] [address] Neisseria gonorrhoeae, LEV LC Negative Invalid Interpretation Code Negative [facility] Comment on above: Result Comment: Perf ormed At: =G [facility] [id number] Magi Mcintyre MD Ph:[phone] Performed By: #### 1 [id number] ####[facility] (DEFAULT)[address] [place] [address] ED Note - Otheron 08-21-2021 ED Note - Other [id number] [facility] ED Note - Other Pt positive for chlamydia. Dr. Olivares notified. He faxed Rx doxycycline to [facility] pharmacy, [address] Pt notified of results. Instructed to notify any sexual partners and to follow up with OB-PRECINCT POLICE SERGEANT MD. She verbalizes understanding. [Electronically Signed on: 08/21/2021 13:27 EST] Bright HERRERA Janell [Verified on: 08/21/2021 13:27 EST] Bright HERRERAArnave [facility] ED Note - Physicianon 2020 ED Note [...] by state law will be [facility]. [Electronically Signed on: 08/21/2021 10:46 EST] Joel Olivares MD [Verified on: 08/21/2021 10:46 EST] Joel Olivares MD [facility] C Urineon 08-19-2021 C Urine Urine Culture ordere d as a result of parameters set on specific urine dip and urine microsopic results. No growth at 2 days. [facility] Comment on above: Performed By: #### 5 [id number], [id number], [id number], [id number] ####[facility] (DEFAULT)[address] [place] [address] C Genitalon 08-18-2021 C Genital Normal vaginal migue isolated No growth of GC at 3 days. Corrected Results Below Gram Negative Diplococci not seen. 3+ Gram Positive Rods 1+ Gram Positive Cocci Rare Gram Negative Rods Normal [facility] Comment on above: Performed By: #### 2 [id number] ####[facility] (DEFAULT)[address] [place] [address] ED Clinical Summaryon 2020 ED Clinical Summary [facility] - Emergency Department [address] [place] [address] ED Clinical Summary PERSON INFORMATION Name: BEATRIS MACK Age: 21 Years Sex: FEMALE : 2000 MRN: Acct#: Visit Reason: Vaginal discharge; VAGINAL DISCHARGE/ITCHING Arrival: 08/17/2021 13:36:40 Discharge: 08/17/2021 16:11:00 LOS: 000 02:35 Check In: 08/17/2021 13:36:40 Checkout:08/17/2021 16:11:00 Address: [facility] [address] PCP: Provider, None PROVIDER INFORMATION Provider Role [...] chills. No recent sick contacts or travel. PATIENT COORDINATOR FRONT DESK is Dr. Saab. No known medication allergies. No current medications. [...] lesions, Normal (more content not included)... Normal [facility] ED Note - Physicianon 2020 ED [...] chills. No recent sick contacts or travel. PATIENT COORDINATOR FRONT DESK is Dr. Saab. No known medication allergies. No current medications. [...] collect, Nurse colle (more content not included)... Normal [facility] ED Note-Nursingon 08-17-2021 ED Note-Nursing Patient arrives to E D room 4 via ambulation, gait is steady. [...] as well. Pt denies any other issues. Normal [facility] ED Patient Summaryon 021 ED Patient Summary [facility] - Emergency Department [address] [place] [address] PATIENT DISCHARGE INSTRUCTIONS Patient Information Name: BEATRIS MACK Age: 21 Years Date of : 2000 Reason For Visit: Vaginal discharge; VAGINAL DISCHARGE/ITCHING Arrival Time: 08/17/2021 13:36:40 Primary Care Physician: Provider, None Attending Physician: Silver Levi MD Comment: Visit Diagnosis: Diagnoses This Visit Trichomonas vaginalis (TV) infection (A59.01) Vaginal discharge ([id number]) Prescription Information: If you have been given a prescription for narcotics, seek immediate medical attention if you have any difficulty breathing or any sudden status changes such as confusion and sleepiness. If you or anyone you know is experiencing suicidal thoughts, mental health, alcohol and/or drug addiction problems; contact the [facility] 13/04 Crisis Hotline -Text 4HDAB to 300534. If you received any narcotics, sedation, or [...] 5 days Comments: Please follow-up with your PATIENT COORDINATOR FRONT DESK in 3 to 5 days. Contact their [...] and treatment you received today in the [facility] Emergency Department were for an urgent problem and are not intended as complete care. It is important for you to follow up with a doctor, nurse practitioner, or physician?s professional nursing assistant for ongoing care. If your symptoms become [...] so we can reach you if necessary. [facility] Emergency Department has provided you with a complete list of medications post discharge. Please inform your computer support specialist instructor/provider of your visit and for further instruction on these medications. Any specific questions regarding your chronic medications and dosages should be discussed with your primary care physician(s) and/or pharmacist. New Medications [facility], [address] [place], [place] [id number], [phone] metroNIDAZOLE (Flagyl 500 mg oral tablet) 1 [...] also be involved (more content not included)... [facility] Test Urine 1on U Preg Negative [facility] Comment on above: Performed By: #### 5 [id number], [id number], [id number], [id number] ####[facility] (DEFAULT)[address] [place] [address] U Preg Internal Control Pass [facility] Comment on above: Performed By: #### 5 [id number], [id number], [id number], [id number] ####[facility] (DEFAULT)[address] [place] [address] UA Jiuzi4rr 08-17-2021 UA Bacteria Trace [facility] Comment on above: Order Comment: Urina lysis Microscopic order added on by Denty's Expert Rules system. Performed By: #### 5 [id number], [id number], [id number], [id number] ####[facility] (DEFAULT)[address] [place] [address] UA Mucous 2+ [facility] Comment on above: Order Comment: Urina lysis Microscopic order added on by [employer] Expert Rules system. Performed By: #### 5 [id number], [id number], [id number], [id number] ####[facility] (DEFAULT)[address] [place] [address] UA RBC 3-5 [facility] Comment on above: Order Comment: Urina lysis Microscopic order added on by D[employer] Expert Rules system. Performed By: #### 5 [id number], [id number], [id number], [id number] ####[facility] (DEFAULT)[address] [place] [address] UA Squam Epi Few [facility] Comment on above: Order Comment: Urina lysis Microscopic order added on by Discern Expert Rules system. Performed By: #### 5 [id number], [id number], [id number], [id number] ####[facility] (DEFAULT)[address] [place] [address] UA Trichomonas Few [facility] Comment on above: Order Comment: Urina lysis Microscopic order added on by Discern Expert Rules system. Performed By: #### 5 [id number], [id number], [id number], [id number] ####[facility] (DEFAULT)[address] [place] [address] UA WBC 25-30 [facility] Comment on above: Order Comment: Urina lysis Microscopic order added on by Discern Expert Rules system. Performed By: #### 5 [id number], [id number], [id number], [id number] ####[facility] (DEFAULT)[address] [place] [address] UA w Culture if Ind Standard on 08-17-2021 Breakpoint UA [facility] Comment on above: Performed By: #### 5 [id number], [id number], [id number], [id number] ####[facility] (DEFAULT)[address] [place] [address] Color (U) Yellow [facility] Comment on above: Performed By: #### 5 [id number], [id number], [id number], [id number] ####[facility] (DEFAULT)[address] [place] [address] Culture? Indicated Invalid Interpretation Code [facility] Comment on above: Result Comment: Resu lt created by rule GL_MAGR_ADD_UA_CULT Result created by rule GL_MAGR_ADD_UA_CULT Result created by rule GL_MAGR_ADD_UA_CULT1 Performed By: #### 5 [id number], [id number], [id number], [id number] ####[facility] (DEFAULT)[address] [place] [address] Glucose (U) [Mass/Vol] Negative Normal [facility] Comment on above: Performed By: #### 5 [id number], [id number], [id number], [id number] ####[facility] (DEFAULT)[address] [place] [address] Ketones Ql (U) Negative Normal [facility] Comment on above: Performed By: #### 5 [id number], [id number], [id number], [id number] ####[facility] (DEFAULT)[address] [place] [address] Micro? Indicated Invalid Interpretation Code [facility] Comment on above: Result Comment: Resu lt created by rule GL_MAGR_ADD_UA_MICRO Performed By: #### 5 [id number], [id number], [id number], [id number] ####[facility] (DEFAULT)[address] [place] [address] UA Bilirubin Negative Normal [facility] Comment on above: Performed By: #### 5 6051055, [id number], [id number], [id number] ####[facility] (DEFAULT)[address] [place] [address] UA Blood Negative Normal NEGATIVE [facility] Comment on above: Performed By: #### 5 [id number], [id number], [id number], [id number] ####[facility] (DEFAULT)[address] [place] [address] UA Clarity CLEAR Normal CLEAR [facility] Comment on above: Performed By: #### 5 [id number], [id number], [id number], [id number] ####[facility] (DEFAULT)[address] [place] [address] UA Leuk Est TRACE Abnormal NEGATIVE [facility] Comment on above: Performed By: #### 5 [id number], [id number], [id number], [id number] ####[facility] (DEFAULT)[address] [place] [address] UA Nitrite Negative Normal NEGATIVE [facility] Comment on above: Performed By: #### 5 [id number], [id number], [id number], [id number] ####[facility] (DEFAULT)[address] [place] [address] UA pH 6.0 Normal 5-8 [facility] Comment on above: Performed By: #### 5 [id number], [id number], [id number], 7244074 ####[facility] (DEFAULT)[address] [place] [address] UA Protein Negative Normal NEGATIVE [facility] Comment on above: Performed By: #### 5 [id number], [id number], [id number], [id number] ####[facility] (DEFAULT)[address] [place] [address] UA Spec Grav >=1.030 Normal 1.001-1.035 [facility] Comment on above: Performed By: #### 5 8116408, [id number], [id number], [id number] ####[facility] (DEFAULT)[address] [place] [address] UA Urobilinogen 0.2 mg/dL Normal 0.2-1.0 [facility] Comment on above: Performed By: #### 5 [id number], [id number], [id number], [id number] ####[facility] (DEFAULT)[address] [place] [address] Urine Source Clean Catch Normal [facility] Comment on above: Performed By: #### 5 [id number], [id number], [id number], [id number] ####[facility] (DEFAULT)[address] [place] [address] Wet Mount.on 08-17-2021 Wet Mount. Negative Normal [facility] Comment on above: Performed By: #### 1 [id number] #### [facility] (DEFAULT) [address] [place] [address] RAD - MISCon 06-19-2020 RAD - MISC [id number] CD:127 Normal [facility] Insurance Correspondence Off iceon 06-07-2020 Insurance Correspondence Office [id number] 0CD:127 [facility] Consent for Treatmenton 05-22 Consent for Treatment [id number] 0CD:127 [facility] Consultation Noteon 05-25-20 20 Consultation Note [id number] 0CD:127 [facility] Operative Reporton 0 Operative Report [id number] 0CD:127 [facility] Ambulatory Clinical Summaryo n 03-12-2020 Ambulatory Clinical Summary {[id number]}CD:[id number] [facility] Coding Summary.on 11-14-2019 Coding Summary. CODING DATE: 11/14/2019 [facility] STATUS: Left Against Medical Advice PAYOR: Teofilo ADMIT DX: REASON FOR VISIT DX: O99.89 Other specified diseases and conditions complicating , childbirth and the puerperium M54.5 Low back pain R51 Headache FINAL DX: PRINCIPAL: Z53.21 Procedure and treatment not carried out due to patient leaving prior to being seen by health care provider SECONDARY[facility] STAT DESCRIPTION DOCTOR NAME DATE NOTE: The code number assigned matches the documented diagnosis and / or procedure in the patient's chart. However, the narrative phrase printed from the coding software may appear abbreviated, or result in slightly different terminology. Coded By: Belinda Person Date Saved: 11/14/2019 08:46 am [facility] Coding Summary. CODING DATE: 11/14/2019 [facility] STATUS: Left Without Being Seen PAYOR: Teofilo [...] Person Date Saved: 11/14/2019 08:46 am Normal [facility] ED Clinical Summaryon 2019 ED Clinical Summary [place] [id number] ED Clinical Summary Person Information Name: BEATRIS MACK [place] Age: 19 Years : 2000 Sex: Female Language: Israeli PCP: Jeanine Gimenez DO Marital Status: Single Phone: [phone] Visit Id: Visit Reason: Abdominal pain - [...] 11/12/2019 21:18:58 11/12/2019 21:18:58 11/12/2019 21:18:58 ADDRESS: [facility] [phone] [facility] DOC NOTES: MEDICAL INFORMATION: Prescriptions Given: PATIENT EDUCATION INFORMATION: Instructions: Follow up: DIAGNOSIS: Normal [facility] ED Patient Education Noteon 11-12-2019 ED Patient Education Note Normal [facility] ED Patient Summaryon 020 ED Patient Summary [place] [id number] Patient Discharge Instructions Person Information Name: BEATRIS MACK Age: 19 Years Arrival Date: 11/12/2019 19:17:38 Discharge Diagnosis: Primary Care Physician: Jeanine Gimenez DO Provider Information Primary Provider: Christian Vee MD Advanced Sheet Metal Assembler And Riveter:None The exam and treatment you received in the Emergency Department were for an urgent problem and are not intended as complete care. It is important that you follow up with a doctor, nurse practitioner, or physician?s professional nursing assistant for ongoing care. If your symptoms become [...] opioids can be used to help relieve ageadpdh-zy-oxaeed pain and are often prescribed following a [...] guidance from the Food and Drug Administration (www.fda.gov/Drugs/Res ourcesForYou). ? Visit www.cdc.gov/drugoverdo se to learn about the risks of opioids abuse and overdose. ? If you believe you may be struggling with addiction, tell your health healthcare risk control consultant and ask for guidance or call [facility] National Helpline at 3-112-394-LWNE. s Source: [place] Department of Health and Human Services/Center for Disease Control & Prevention [facility] Medications Given: Medication Dose Route No medications found. Medication Information: Comment: Pharmacy Information: Thank you for choosing [facility] Patient Education Materials: FREDERICK Stein HAYLEE T , have received the following patient education materials/instructions and have verbalized understanding: Patient Education Materials: Follow-up Instructions: Patient Signature Date Clinician/Nurse Signature ___ Date 11/12/2019 21:18:59 Normal [facility] Progress Note-Nurseon 2019 Progress Note-Nurse pt left before dr. vee was in for exam Normal [facility] UA With Cult Reflexon 2019 Bacteria LM Ql (Urine sed) 1+ /HPF Abnormal Trace [facility] Comment on above: Performed By: #### 1 [id number] ####[facility] [address] [place] [address] Bilirubin Ql (U) Negative Normal Negative [facility] Comment on above: Performed By: #### 1 [id number] ####[facility] [address] [place] [address] Clarity (U) CLEAR Normal Clear [facility] Comment on above: Performed By: #### 1 [id number] ####[facility] [address] [place] [address] Color (U) YELLOW Normal Yellow [facility] Comment on above: Performed By: #### 1 [id number] ####[facility] [address] [place] [address] Crystals LM Ql (Urine sed) Present Normal [facility] Comment on above: Performed By: #### 1 [id number] ####[facility] [address] [place] [address] Epithelial cells.squamous LM.HPF (Urine sed) [#/Area] 3-4 Normal 0-2 [facility] Comment on above: Performed By: #### 1 [id number] ####[facility] [address] [place] [address] Glucose Test strip (U) [Mass/Vol] Negative Normal Negative [facility] Comment on above: Performed By: #### 1 [id number] ####[facility] [address] [place] [address] Hemoglobin Ql (U) Negative Normal Negative [facility] Comment on above: Performed By: #### 1 [id number] ####[address] [address] Ketones (U) [Mass/Vol] Negative Normal Negative [facility] Comment on above: Performed By: #### 1 [id number] ####[address] [address] [place].plasma/[place].R BC (Bld) [Mass ratio] 0-3 Normal 0-3 [facility] Comment on above: Performed By: #### 1 6791969 ####[address] [address] Mucus Ql (Urine sed) TRACE Normal [facility] Comment on above: Performed By: #### 1 [id number] ####[address] [address] Nitrite Ql (U) Negative Normal Negative [facility] Comment on above: Performed By: #### 1 [id number] ####[address] [address] pH (U) 6.0 [pH] 5.0-9.0 [facility] Comment on above: Performed By: #### 1 7614251 ####[address] [address] Protein (U) [Mass/Vol] Negative Normal Negative [facility] Comment on above: Performed By: #### 1 [id number] ####[address] [address] Specific gravity (U) [Rel density] 1.025 1.005-1.030 [facility] Comment on above: Performed By: #### 1 3102767 ####[address] [address] UA Spec Desc Clean Catch Normal [facility] Comment on above: Performed By: #### 1 [id number] ####[address] [place] [address] Urobilinogen Qn (U) 0.2 {Joy'U}/dL Normal 0.0-1.0 [facility] Comment on above: Performed By: #### 1 4232587 ####[facility] [address] [place] [address] WBC Auto Ql (U) Negative Normal Negative [facility] Comment on above: Performed By: #### 1 [id number] ####[facility] [address] [place] [address] WBC LM.HPF (Urine sed) [#/Area] 0-5 Normal 0-5 [facility] Comment on above: Performed By: #### 1 [id number] ####[facility] [address] [place] [address] Automated erythrocytes count in urine sediment (number/area)on 11-10-2019 RBC Auto (Urine sed) [#/Area] 3-4 [HPF] [facility] Automated leukocytes count i n urine sediment (number/area)on 11-10-2019 WBC Auto (Urine sed) [#/Area] 20-49 [HPF] [facility] Automated urine color determ inationon 11-10-2019 Color (U) Yellow Yellow [facility] Automated urine hyaline cast s count (number/volume)on 11-10-2019 Hyaline casts Auto (U) [#/Vol] Rare [LPF] [facility] Casts typing in urine sedime nt by light microscopyon 11-10-2019 Casts LM Nom (Urine sed) None seen [LPF] None S een [facility] Specific gravity of Urine by Automated test stripon 11-10-2019 Specific gravity (U) [Rel density] 1.017 1.001-1.030 [facility] Squamous epithelial cells de tection in urine sediment by light microscopyon 11-10-2019 Epithelial cells.squamous LM Ql (Urine sed) 5-9 [HPF] [facility] Urine bacteria detection by automated methodon 11-10-2019 Bacteria Auto Ql (U) 2+ None Seen [facility] Urine clarity by refractomet ry automatedon 11-10-2019 Clarity Refractometry automated (U) Turbid Clear [facility] Urine culture routineon 10-23 Bacteria identified Cx Nom (U) [address] [facility] Urine glucose measurement by automated test strip (mass/volume)on 11-10-2019 Glucose Auto test strip (U) [Mass/Vol] Normal mg/dL Normal [facility] Urine hemoglobin detection b y automated test stripon 11-10-2019 Hemoglobin Auto test strip Ql (U) Negative Negative [facility] Urine ketones measurement by automated test strip (mass/volume)on 11-10-2019 Ketones (U) [Mass/Vol] Negative Negative [facility] Urine leukocyte esterase det ection by automated test stripon 11-10-2019 Leukocyte esterase Auto test strip Ql (U) 3+ Negative [facility] Urine nitrite detection by t est stripon 11-10-2019 Nitrite Ql (U) Negative Negative [facility] Urine pH measurement by auto mated test stripon 11-10-2019 pH (U) 6.5 [pH] 5.0-9.0 [facility] Urine protein measurement by automated test strip (mass/volume)on 11-10-2019 Protein (U) [Mass/Vol] Negative Negative [facility] Urine total bilirubin detect ion by test stripon 11-10-2019 Bilirubin Ql (U) Negative Negative [facility] Urine urobilinogen measureme nt by automated test strip (mass/volume)on 11-10-2019 Urobilinogen (U) [Mass/Vol] Normal mg/dL Normal [facility] Automated erythrocytes count in urine sediment (number/area)on 10-19-2019 RBC Auto (Urine sed) [#/Area] 1-2 [HPF] [facility] Automated leukocytes count i n urine sediment (number/area)on 10-19-2019 WBC Auto (Urine sed) [#/Area] 10-19 [HPF] [facility] Automated urine color determ inationon 10-19-2019 Color (U) Yellow Yellow [facility] Chlamydia trachomatis rRNA d etection by probe and target amplification methodon 10-19-2019 C. trachomatis rRNA LEV+probe Ql (Unsp spec) Negative Negative [facility] Comment on above: Performed at: =[facility] [address] [place] [id number] Director: Mavis Sow MD, Phone: [phone] Serum or plasma beta choriog onadotropin measurement (units/volume)on 10-19-2019 HCG.beta subunit Qn 452075.00 m[IU]/mL [facility] Comment on above: Approximate Approxim ate hCG Gestational Age Range (mIU/ml) (weeks)0.2-1 5-50 1-2 50-500 2-3 100-5,000 3-4 500-10,000 4-5 1,000-50,000 5-6 10,000-100,000 6-8 15,000-200,000 8-12 10,000-100,000 Specific gravity of Urine by Automated test stripon 10-19-2019 Specific gravity (U) [Rel density] 1.021 1.001-1.030 [facility] Squamous epithelial cells de tection in urine sediment by light microscopyon 10-19-2019 Epithelial cells.squamous LM Ql (Urine sed) 10-19 [HPF] [facility] Urinalysison 10-19-2019 Hyaline casts LM Ql (Urine sed) 0-8 [LPF] [facility] Urine bacteria detection by automated methodon 10-19-2019 Bacteria Auto Ql (U) 1+ None Seen [facility] Urine clarity by refractomet ry automatedon 10-19-2019 Clarity Refractometry automated (U) Cloudy Clear [facility] Urine culture routineon 09-22 Bacteria identified Cx Nom (U) [address] [facility] Urine glucose measurement by automated test strip (mass/volume)on 10-19-2019 Glucose Auto test strip (U) [Mass/Vol] Normal mg/dL Normal [facility] Urine hemoglobin detection b y automated test stripon 10-19-2019 Hemoglobin Auto test strip Ql (U) Trace Negative [facility] Urine ketones measurement by automated test strip (mass/volume)on 10-19-2019 Ketones (U) [Mass/Vol] Negative [facility] leukocyte esterase det ection by automated test stripon 10-19-2019 Leukocyte esterase Auto test strip Ql (U) 1+ Negative [facility] Urine nitrite detection by t est stripon 10-19-2019 Nitrite Ql (U) Negative Negative [facility] Urine pH measurement by auto mated test stripon 10-19-2019 pH (U) 5.5 [pH] 5.0-9.0 [facility] Urine protein measurement by automated test strip (mass/volume)on 10-19-2019 Protein (U) [Mass/Vol] Negative [facility] Urine total bilirubin detect ion by test stripon 10-19-2019 Bilirubin Ql (U) Negative Negative [facility] Urine urobilinogen measureme nt by automated test strip (mass/volume)on 10-19-2019 Urobilinogen (U) [Mass/Vol] Normal mg/dL Normal [facility] Automated erythrocytes count in urine sediment (number/area)on 10-02-2019 RBC Auto (Urine sed) [#/Area] 0-1 [HPF] [facility] Automated leukocytes count i n urine sediment (number/area)on 10-02-2019 WBC Auto (Urine sed) [#/Area] 20-49 [HPF] [facility] Automated urine color determ inationon 10-02-2019 Color (U) Yellow Yellow [facility] Automated urine hyaline cast s count (number/volume)on 10-02-2019 Hyaline casts Auto (U) [#/Vol] 0-1 [LPF] [facility] Casts typing in urine sedime nt by light microscopyon 10-02-2019 Casts LM Nom (Urine sed) None seen [LPF] None S een [facility] Chlamydia trachomatis rRNA d etection by probe and target amplification methodon 10-02-2019 C. trachomatis rRNA LEV+probe Ql (Unsp spec) Negative Negative [facility] Comment on above: Performed at: =G - L [address] [id number] Director: Mavis Sow MD, Phone: [phone] Specific gravity of Urine by Automated test stripon 10-02-2019 Specific gravity (U) [Rel density] 1.020 1.001-1.030 [facility] Squamous epithelial cells de tection in urine sediment by light microscopyon 10-02-2019 Epithelial cells.squamous LM Ql (Urine sed) 10-19 [HPF] [facility] Urine bacteria detection by automated methodon 10-02-2019 Bacteria Auto Ql (U) 2+ None Seen [facility] Urine clarity by refractomet ry automatedon 10-02-2019 Clarity Refractometry automated (U) Cloudy Clear [facility] Urine culture routineon 09-21 Bacteria identified Cx Nom (U) [address] [facility] Urine glucose measurement by automated test strip (mass/volume)on 10-02-2019 Glucose Auto test strip (U) [Mass/Vol] Normal mg/dL Normal [facility] Urine hemoglobin detection b y automated test stripon 10-02-2019 Hemoglobin Auto test strip Ql (U) Negative Negative [facility] Urine ketones measurement by automated test strip (mass/volume)on 10-02-2019 Ketones (U) [Mass/Vol] Negative Negative [facility] Urine leukocyte esterase det ection by automated test stripon 10-02-2019 Leukocyte esterase Auto test strip Ql (U) 2+ Negative [facility] Urine nitrite detection by t est stripon 10-02-2019 Nitrite Ql (U) Negative Negative [facility] Urine pH measurement by auto mated test stripon 10-02-2019 pH (U) 7.0 [pH] 5.0-9.0 [facility] Urine protein measurement by automated test strip (mass/volume)on 10-02-2019 Protein (U) [Mass/Vol] Negative Negative [facility] Urine sediment renal epithel ial cell count by microscopy (number/high power field)on 10-02-2019 Epithelial cells.renal LM.HPF (Urine sed) [#/Area] 1-2 [HPF] [facility] Urine total bilirubin detect ion by test stripon 10-02-2019 Bilirubin Ql (U) Negative Negative [facility] Urine urobilinogen measureme nt by automated test strip (mass/volume)on 10-02-2019 Urobilinogen (U) [Mass/Vol] Normal mg/dL Normal [facility] Automated basophil %on 09-06 Basophils/100 WBC (Bld) 0.1 % [facility] Automated basophil counton 1 11-07-2018 Basophils (Bld) [#/Vol] 0.0 10*3/uL 0.0-0.2 [facility] Automated blood lymphocyte c ount (number/volume)on 09-06-2019 Lymphocytes (Bld) [#/Vol] 0.4 10*3/uL 1.00-4.8 [facility] Automated blood lymphocyte c ount as percentage of total leukocyteson 09-06-2019 Lymphocytes/100 WBC (Bld) 5.3 % [facility] Automated blood monocyte cou nton 09-06-2019 Monocytes (Bld) [#/Vol] 1.2 10*3/uL 0.0-0.8 [facility] Automated blood platelet cou nt (count/volume)on 09-06-2019 Platelets (Bld) [#/Vol] 284 10*3/uL 150-450 [facility] Automated blood platelet mckenna n volume measurementon 09-06-2019 Platelet mean volume (Bld) [Entitic vol] 8.4 fL 6.3-10.7 [facility] Automated eosinophil %on Eosinophils/100 WBC (Bld) 0.3 % [facility] Automated eosinophil counton 09-06-2019 Eosinophils (Bld) [#/Vol] 0.0 10*3/uL 0.0-0.45 [facility] Automated erythrocyte distri bution width ratioon 09-06-2019 Erythrocyte distribution width (RBC) [Ratio] 16.9 % 11.9-15.3 [facility] Automated erythrocyte mean c orpuscular hemoglobin (mass per erythrocyte)on 09-06-2019 MCH (RBC) [Entitic mass] 29.9 pg 24.7-34.3 [facility] Automated erythrocyte mean c orpuscular hemoglobin concentration measurement (mass/volon 09-06-2019 MCHC (RBC) [Mass/Vol] 33.4 g/dL 32.0-35.0 [facility] Automated erythrocyte mean c orpuscular volumeon 09-06-2019 MCV (RBC) [Entitic vol] 89.6 fL 80-100 F [facility] Automated erythrocytes count in urine sediment (number/area)on 09-06-2019 RBC Auto (Urine sed) [#/Area] 10-19 [HPF] [facility] Automated leukocytes count i n urine sediment (number/area)on 09-06-2019 WBC Auto (Urine sed) [#/Area] 5-9 [HPF] [facility] Automated monocyte %on 09-06 Monocytes/100 WBC (Bld) 15.4 % F [facility] Automated neutrophil %on Neutrophils/100 WBC (Bld) 78.9 % [facility] Automated urine color determ inationon 09-06-2019 Color (U) Yellow Yellow [facility] Blood erythrocytes automated count (number/volume)on 09-06-2019 RBC (Bld) [#/Vol] 4.36 10*6/uL 3.60-5.00 [facility] Blood hemoglobin measurement (mass/volume)on 09-06-2019 Hemoglobin (Bld) [Mass/Vol] 13.0 g/dL 11.8-15.4 [facility] Blood leukocytes automated c ount (number/volume)on 09-06-2019 WBC (Bld) [#/Vol] 8.0 10*3/uL 3.8-11.[address] [facility] Blood neutrophil count by au tomated method (number/volume)on 09-06-2019 Neutrophils (Bld) [#/Vol] 6.3 10*3/uL 1.8-7.7 [facility] Hematocrit [Volume Fraction] of Blood by Automated counton 09-06-2019 Hematocrit (Bld) [Volume fraction] 39.1 % 34.0-46.4 [facility] Otheron 09-06-2019 Nucleated RBC/100 WBC (Bld) [Ratio] 0.0 % 0-0.5 [facility] Serum or plasma beta choriog onadotropin measurement (units/volume)on 09-06-2019 HCG.beta subunit Qn 4195.00 m[IU]/mL [facility] Comment on above: Approximate Approxim ate hCG Gestational Age Range (mIU/ml) (weeks)0.2-1 5-50 1-2 50-500 2-3 100-5,000 3-4 500-10,000 4-5 1,000-50,000 5-6 10,000-100,000 6-8 15,000-200,000 8-12 10,000-100,000 Specific gravity of Urine by Automated test stripon 09-06-2019 Specific gravity (U) [Rel density] 1.015 1.001-1.030 [facility] Squamous epithelial cells de tection in urine sediment by light microscopyon 09-06-2019 Epithelial cells.squamous LM Ql (Urine sed) 10-19 [HPF] [facility] Urinalysison 09-06-2019 Hyaline casts LM Ql (Urine sed) 0-8 [LPF] [facility] Urine bacteria detection by automated methodon 09-06-2019 Bacteria Auto Ql (U) 1+ None Seen [facility] Urine clarity by refractomet ry automatedon 09-06-2019 Clarity Refractometry automated (U) Clear Clear [facility] Urine culture routineon 08-21 Bacteria identified Cx Nom (U) Strep. agalactiae Grp B [facility] Urine glucose measurement by automated test strip (mass/volume)on 09-06-2019 Glucose Auto test strip (U) [Mass/Vol] Normal mg/dL Normal [facility] Urine hemoglobin detection b y automated test stripon 09-06-2019 Hemoglobin Auto test strip Ql (U) Negative Negative [facility] Urine human chorionic gonado tropin (hCG) detection by immunoassayon 09-06-2019 HCG ( test) Ql (U) Positive [facility] Urine ketones measurement by automated test strip (mass/volume)on 09-06-2019 Ketones (U) [Mass/Vol] 1+ Negative [facility] Urine leukocyte esterase det ection by automated test stripon 09-06-2019 Leukocyte esterase Auto test strip Ql (U) 1+ Negative [facility] Urine nitrite detection by t est stripon 09-06-2019 Nitrite Ql (U) Negative Negative [facility] Urine pH measurement by auto mated test stripon 09-06-2019 pH (U) 7.0 [pH] 5.0-9.0 [facility] Urine protein measurement by automated test strip (mass/volume)on 09-06-2019 Protein (U) [Mass/Vol] Negative Negative [facility] Urine total bilirubin detect ion by test stripon 09-06-2019 Bilirubin Ql (U) Negative Negative [facility] Urine urobilinogen measureme nt by automated test strip (mass/volume)on 09-06-2019 Urobilinogen (U) [Mass/Vol] Normal mg/dL Normal [facility] C Cervicalon 08-03-2019 Cervical Culture Microbiology PROCEDURE: [...] or tested, I=Intermediate, ESBL=Extended spectrum beta-lactamase, R=Resistant, TFG=Thymidine-dependen t strain, BRITTNEY=Beta-lactamase positive, JOSE=mcg/m;(mg/L), S*=Predicted susceptible interp, [...] R1: This test was performed at: [facility], [address] [place] [address], [id number] , [facility] Comment on above: Performed By: #### 1 [id number] ####[id number] [place] [address] Coding Summary.on 08-03-2019 Coding Summary. CODING DATE: 08/03/2019 FINAL [facility] STATUS: Home (Routine DC) PAYOR: Teofilo ADMIT [...] Belinda Person Date Saved: 08/03/2019 05:45 am [facility] Coding Summary.on 08-02-2019 Coding Summary. CODING DATE: 08/02/2019 FINAL [facility] STATUS: Home (Routine DC) PAYOR: [place] ADMIT DX: REASON FOR VISIT DX: N89.8 [...] Person Date Saved: 08/02/2019 08:55 am Normal [facility] ED Clinical Summaryon 2018 ED Clinical Summary [place] [id number] ED Clinical Summary Person Information Name: BEATRIS MACK Monique/[facility] Age: 19 Years : 2000 12:00 AM Sex: Female Language: Israeli PCP: Jeanine Gimenez DO Marital Status: Single Phone: [phone] Visit Id: Visit Reason: STD exposure; VAGINAL [...] 08/02/2019 2:51 PM 08/02/2019 2:51 PM ADDRESS: [address] [place] [id number] PHYS DOC NOTES: MEDICAL INFORMATION: Prescriptions Given: PATIENT EDUCATION INFORMATION: Instructions: Sexually Transmitted Disease Follow up: With: Address: When: Jeanine Gimenez [facility] [address] [place], [address] [address] Business (1) In 3 days 08/05/2019 DIAGNOSIS: STD exposure Normal [facility] ED Note-Physicianon 08-02-20 ED Note-Physician Basic Information [...] She does have appointment next week with PATIENT COORDINATOR FRONT DESK for follow-up, and is educated that she [...] days 08/05/2019 EST [address] [place] [address]- Business (1) Additional Instructions: Patient Education Sexually Transmitted Disease Attestation Patient seen and evaluated by the physician professional nursing assistant. Attending physician was present in the emergency department and supervised care. This report was transcribed using voice recognition software. Every effort was made to ensure accuracy, however, inadvertently computerized child and family services specialist mistakes may be present. Problem List/Past Medical [...] Diagnostic Results No qualifying data available. Normal [facility] Comment on above: Result Comment: Elec tronically Signed By: Agusto Oshea PA-C\.br\Date and Time Signed: 08/02/19 14:41 EST\.br\Electronically Co-Signed By: Bartolo Randolph DO\.br\Date and Time Co-Signed: 08/02/19 14:43 EST ED Patient Education Noteon 08-02-2019 ED Patient Education Note Family Medicine Sexually Transmitted Disease A sexually transmitted disease [...] Document Reviewed: 03/28/2014 ExitCare? Patient Information ?2014 [employer]. This information is not intended to replace advice given to you by your health care provider. Make sure you discuss any questions you have with your health care provider. Normal [facility] ED Patient Summaryon 019 ED Patient Summary [address] [address] Patient Discharge Instructions Person Information Name: BEATRIS MACK Age: 19 Years Arrival Date: 08/02/2019 1:44 PM Discharge Diagnosis: STD exposure Primary Care Physician: Jeanine Gimenez DO Provider Information Primary Provider: Bartolo Randolph DO [employer]:Agusto Oshea PA-C The exam and treatment you received in the Emergency Department were for an urgent problem and are not intended as complete care. It is important that you follow up with a doctor, nurse practitioner, or physician?s professional nursing assistant for ongoing care. If your symptoms become worse or you do not improve as expected and you are unable to reach your usual health care provider, you should return to the Emergency Department. We are available 24 hours a day. BEATRIS MACK has been given the following list of patient education materials, prescriptions and follow-up instructions: Follow-up Instructions: With: Address: When: Jeanine Gimenez [facility] [address], [facility] [address] [place] [address] Business (1) In 3 days 08/05/2019 In the event that this physician does not participate in your insurance network, please consult with your insurance company to find a nearby participating provider. Patient Education Materials: Sexually Transmitted Disease A MESSAGE TO ALL PATIENTS REGARDING OPIOIDS PRESCRIPTION OPIOIDS: WHAT YOU NEED TO KNOW Prescription opioids can be used to help relieve vigarfub-vv-hlhaiz pain and are often prescribed following a [...] guidance from the Food and Drug Administration (www.fda.gov/Drugs/Res ourcesForYou). ? Visit www.cdc.gov/drugoverdo se to learn about the risks of opioids abuse and overdose. ? If you believe you may be struggling with addiction, tell your health healthcare risk control consultant and ask for guidance or call [facility]?S National Helpline at 0-240-463-KEHR. v Source: US Department of Health and Human Services/Center for Disease Control & Prevention [facility] Medications Given: Medication Dose Route No medications found. Medication Information: Medications to Continue with No Changes Other Medications metronidazole (Flagyl 500 mg Tab) 1 Tabs By Mouth every 12 hours for 7 Days. Refills: 0. Comment: Pharmacy Information: Trav Cardoza Thank you for choosing [facility] Patient Education Materials: Sexually Transmitted Disease A [...] Document Reviewed: 03/28/2014 ExitCare? Patient Information ?2014 [employer]. This information is not intended to replace advice given to you by your health care provider. Make sure you discuss any questions you have with your health care provider. I, BEATRIS MACK , have received the following patient education materials/instructions and have verbalized understanding: Patient Education Materials: Sexually Transmitted Disease Follow-up Instructions: With: Address: When: Jeanine Gimenez [address] [place], [place] [address]dict [place] , [address] [address] [facility] (1) In 3 days 08/05/2019 Prescriptions: Patient Signature Date Clinician/Nurse Signature ___ Date 08/02/19 14:51:07 Normal [facility] ED Clinical Summaryon 2018 ED Clinical Summary [address] [address] ED Clinical Summary Person Information Name: BEATRIS MACK Monique/[place] Age: 19 Years : 2000 12:00 AM Sex: Female Language: Israeli PCP: Jeanine Gimenez DO Marital Status: Single Phone: [phone] Visit Id: Visit Reason: Vaginal pain; Vaginal [...] 08/01/2019 12:06 PM 08/01/2019 12:06 PM ADDRESS: [address] [place] [id number] PHYS DOC NOTES: MEDICAL INFORMATION: Prescriptions Given: Prescription Display metronidazole (Flagyl 500 mg Tab) 500 mg = 1 tab(s), Oral, q12hr, X 7 day(s), # 14 tab(s), Refills(s) 0 PATIENT EDUCATION INFORMATION: Instructions: Trichomoniasis; Sexually Transmitted Disease; Safe Sex; Cervicitis Follow up: With: Address: When: Saida BAIG [address] [place] [address] Business (1) In 3 days 08/04/2019 DIAGNOSIS: Cervicitis; STD exposure Normal [facility] ED Note-Physicianon 08-01-20 ED Note-Physician Basic Information Time Seen: Agusto Oshea PA-C 08/01/2019 11:35 Chief Complaint Pt. states having [...] sexual practices, and is to follow-up with PATIENT COORDINATOR FRONT DESK and PCP.Patient was encouraged to return to [...] # 14 tab(s), Refills(s) 0 Cervical Culture Chlamydia/Gonococcus, LEV Pelvic Exam Setup Medications Administered Given [...] BAIG In 3 days 08/04/2019 EST [address] [place] [address] [facility] (1) Additional Instructions: Patient Education Trichomoniasis Sexually Transmitted Disease Safe Sex Cervicitis Attestation Patient seen and evaluated by the physician professional nursing assistant. Attending physician was present in the emergency department and supervised care. This report was transcribed using voice recognition software. Every effort was made to ensure accuracy, however, inadvertently computerized child and family services specialist mistakes may be present. ATTENDING NOTE: I [...] Diagnostic Results No qualifying data available. Normal [facility] Comment on above: Result Comment: Elec tronically Signed By: Agusto Oshea PA-C\.br\Date and Time Signed: 08/01/19 12:46 EST\.br\Electronically Co-Signed By: Joanne Lutz DO\.br\Date and Time Co-Signed: 08/01/19 15:41 EST ED Patient Education Noteon 08-01-2019 ED Patient Education Note Family Medicine Sexually Transmitted Disease A sexually transmitted disease [...] Document Reviewed: 03/28/2014 ExitCare? Patient Information ?2015 [employer]. This information is not intended to replace [...] Document Reviewed: 03/01/2014 ExitCare? Patient Information ?2015 [employer]. This information is not intended to replace [...] ? Your health care provider may recommend lkbo-fwx-qiugqyn medicines or creams to decrease itching or irritation. ? Your sexual partner will need to be treated if infected. HOME CARE INSTRUCTIONS ? Take medicines only as directed by your health care provider. ? Take htzk-rns-vovdgyy medicine for itching or irritation as directed [...] Document Reviewed: 06/19/2014 ExitCare? Patient Information ?2015 [employer]. This information is not intended to replace [...] Document Reviewed: 02/28/2013 ExitCare? Patient Information ?2014 [employer]. This information is not intended to replace advice given to you by your health care provider. Make sure you discuss any questions you have with your health care provider. Normal [facility] ED Patient Summaryon 019 ED Patient Summary [address] [address] Patient Discharge Instructions Person Information Name: BEATRIS MACK Age: 19 Years Arrival Date: 08/01/2019 11:15 AM Discharge Diagnosis: Cervicitis; STD exposure Primary Care Physician: Jeanine Gimenez DO Provider Information Primary Provider: Joanne Lutz [employer]eter:Agusto Oshea PA-C The exam and treatment you received in the Emergency Department were for an urgent problem and are not intended as complete care. It is important that you follow up with a doctor, nurse practitioner, or physician?s professional nursing assistant for ongoing care. If your symptoms become worse or you do not improve as expected and you are unable to reach your usual health care provider, you should return to the Emergency Department. We are available 24 hours a day. BEATRIS MACK has been given the following list of patient education materials, prescriptions and follow-up instructions: Follow-up Instructions: With: Address: When: Saidal[address]isha [address] [place] [address] Business (1) In 3 days [...] opioids can be used to help relieve zeqjckpj-wb-glmaxc pain and are often prescribed following a [...] guidance from the Food and Drug Administration (www.fda.gov/Drugs/Res ourcesForYou). ? Visit www.cdc.gov/drugoverdo se to learn about the risks of opioids abuse and overdose. ? If you believe you may be struggling with addiction, tell your health healthcare risk control consultant and ask for guidance or call [facility] National Helpline at 1-026-848-MGPR. v Source: US Department of Health and Human Services/Center for Disease Control & Prevention [facility] Medications Given: Medication Dose Route azithromycin 1000.00 mg Oral ceftriaxone 250.00 mg IntraMuscular Left Gluteus Medius fluconazole 150.00 mg Oral Medication Information: New Medications Printed Prescriptions metronidazole (Flagyl 500 mg Tab) 1 Tabs By Mouth every 12 hours for 7 Days. Refills: 0. Comment: Pharmacy Information: Trav Cardoza Thank you for choosing [facility] Patient Education Materials: Trichomoniasis Trichomoniasis is an [...] ? Your health care provider may recommend woxo-nun-cmqyvak medicines or creams to decrease itching or irritation. ? Your sexual partner will need to be treated if infected. HOME CARE INSTRUCTIONS ? Take medicines only as directed by your health care provider. ? Take [id number] medicine for itching or irritation as directed [...] Document Reviewed: 06/19/2014 ExitCare? Patient Information ?2015 [employer]. This information is not intended to replace [...] Document Reviewed: 03/28/2014 ExitCare? Patient Information ?2014 [employer]. This information is not intended to replace [...] Document Reviewed: 02/28/2013 ExitCare? Patient Information ?2014 [employer]. This information is not intended to replace [...] Document Reviewed: 03/01/2014 ExitCare? Patient Information ?2015 [employer]. This information is not intended to replace advice given to you by your health care provider. Make sure you discuss any questions you have with your health care provider. FREDERICK Stein HAYLEE T , have received the following patient education materials/instructions and have verbalized understanding: Patient Education Materials: Trichomoniasis; Sexually Transmitted Disease; Safe Sex; Cervicitis Follow-up Instructions: With: Address: When: Saida BAIG [address] [place] [address] Business (1) In 3 days 08/04/2019 Prescriptions: [metronidazole (Flagyl 500 mg Tab)] Patient Signature Date Clinician/Nurse Signature ___ Date 08/01/19 12:06:35 [facility] Pre-Arrival Noteon 9 Pre-Arrival Note Pre-Arrival Summary Name: phil Current Date: 08/01/2019 11:16:54 EST Gender: Female Date of : Age: 89 Pre-Arrival Type: EMS ETA: 08/01/2019 11:29:00 EST Primary Care Physician: Presenting Problem: fall, posterior head lac. Pre-Arrival User: Dominique Matamoros RN Referring Source: Location: [place] Completion Date/Time: 08/01/19 10:59:00 [facility] Emergency Department Pre-Hospital Report Form Vital Signs: Pre-Hospital Report: Treatment in Route: Response to Treatment: Misc. Issues: Normal [facility] CNPTOUTREACHon 05-06-2019 CNPTOUTREACH Patient Outreach (NEPHMN) BEATRIS MACK ([id number]) 1 F Date Time Provider Department 05/06/19 SATISH VILLALPANDO NEPHMN During your visit today, we recorded the following information about you: Allergies As of Date: 05/06/2019 (Not on File) Date Reviewed: Never Reviewed Visit Diagnosis:Screening for genitourinary condition [Z13.89] Order(s):UA CHEMSTRIP ONLY [SQUA] Order #: [id number] Problem List As Of Date: 05/06/2019 (None) Encounter Status:Closed by EPIC, PRODUSER on 05/23/19 Normal [facility] Vital Signs Date Time Vital Sign Value Performing Clinician Facility 03-27-2025 11:07-0400 Body height 170.2 cm Rowdy Honeycutt DPM Work Phone: [facility] 03-27-2025 11:07-0400 Body mass index (BMI) [Ratio] 27.41 kg/m2 Rowdy Honeycutt DPM Work Phone: [facility] 03-27-2025 11:07-0400 Body weight 79.38 kg Rowdy Honeycutt DPM Work Phone: [facility] 03-27-2025 11:07-0400 Respiratory rate 18 /min Rowdy Honeycutt DPM Work Phone: [facility] 03-21-2025 13:10-0400 Body height 170.2 cm Rowdy Honeycutt DPM Work Phone: [facility] 03-21-2025 13:10-0400 Body mass index (BMI) [Ratio] 27.41 kg/m2 Rowdy Honeycutt DPM Work Phone: [facility] 03-21-2025 13:10-0400 Body weight 79.38 kg Rowdy Honeycutt DPM Work Phone: [facility] 03-21-2025 13:10-0400 Respiratory rate 18 /min Rowdy Honeycutt DPM Work Phone: [facility] 03-08-2025 14:32-0400 Body height 170.18 cm Shad Alamo DO Work Phone: [facility] 03-08-2025 14:32-0400 Body mass index (BMI) [Ratio] 27.7 kg/m2 Shad Alamo DO Work Phone: [facility] 03-08-2025 14:32-0400 Body temperature 98 [degF] Shad Alamo DO Work Phone: [facility] 03-08-2025 14:32-0400 Body weight 80.28 kg Shad Alamo DO Work Phone: [facility] 03-08-2025 14:32-0400 Diastolic blood pressure 70 mm[Hg] Shad Jasmeet DO Work Phone: [facility] 03-08-2025 14:32-0400 Heart rate 78 /min Shad Alamo DO Work Phone: [facility] 03-08-2025 14:32-0400 Respiratory rate 18 /min Shad Jasmeet DO Work Phone: [facility] 03-08-2025 14:32-0400 SaO2% (BldA) [Mass fraction] 98 % Shad Jasmeet DO Work Phone: [facility] 03-08-2025 14:32-0400 Systolic blood pressure 130 mm[Hg] Shad Jasmeet DO Work Phone: [facility] 03-02-2025 16:22-0400 Body height 170.18 cm Shad Jasmeet DO Work Phone: [facility] 03-02-2025 16:22-0400 Body temperature 99.2 [degF] Shadchaya Alamo DO Work Phone: [facility] 03-02-2025 16:22-0400 Body weight 81.6 kg Shad Alamo DO Work Phone: [facility] 03-02-2025 16:22-0400 Diastolic blood pressure 83 mm[Hg] Shad Alamo DO Work Phone: [facility] 03-02-2025 16:22-0400 Heart rate 98 /min Shad Alamo DO Work Phone: [facility] 03-02-2025 16:22-0400 Respiratory rate 20 /min Shad Alamo DO Work Phone: [facility] 03-02-2025 16:22-0400 SaO2% (BldA) [Mass fraction] 98 % Shad Alamo DO Work Phone: [facility] 03-02-2025 16:22-0400 Systolic blood pressure 125 mm[Hg] Shad Alamo DO Work Phone: [facility] 02-28-2025 17:34-0400 Body height 170.18 cm Shad Alamo DO Work Phone: [facility] 02-28-2025 17:34-0400 Body temperature 98.1 [degF] Shad Alamo DO Work Phone: [facility] 02-28-2025 17:34-0400 Body weight 80.75 kg Shad Alamo DO Work Phone: [facility] 02-28-2025 17:34-0400 Diastolic blood pressure 83 mm[Hg] Shad Alamo DO Work Phone: [facility] 02-28-2025 17:34-0400 Heart rate 81 /min Shad Alamo DO Work Phone: [facility] 02-28-2025 17:34-0400 Respiratory rate 18 /min Shad Alamo DO Work Phone: [facility] 02-28-2025 17:34-0400 SaO2% (BldA) [Mass fraction] 97 % Shad Alamo DO Work Phone: [facility] 02-28-2025 17:34-0400 Systolic blood pressure 133 mm[Hg] Shad Alamo DO Work Phone: [facility] 07-11-2024 16:00-0400 Diastolic blood pressure 76 mm[Hg] PHYSICIAN NO [facility] 07-11-2024 16:00-0400 Heart rate 76 /min PHYSICIAN NO [facility] 07-11-2024 16:00-0400 Respiratory rate 16 /min PHYSICIAN NO [facility] 07-11-2024 16:00-0400 SaO2% (BldA) [Mass fraction] 98 % PHYSICIAN NO [facility] 07-11-2024 16:00-0400 Systolic blood pressure 124 mm[Hg] PHYSICIAN NO [facility] 07-11-2024 13:07-0400 Body height 170.18 cm PHYSICIAN NO [facility] 07-11-2024 13:07-0400 Body temperature 98.6 [degF] PHYSICIAN NO [facility] 07-11-2024 13:07-0400 Body weight 81.25 kg PHYSICIAN NO [facility] 01-15-2024 23:37-0400 Diastolic blood pressure 80 mm[Hg] PHYSICIAN NO [facility] 01-15-2024 23:37-0400 Heart rate 68 /min PHYSICIAN NO [facility] 01-15-2024 23:37-0400 Respiratory rate 18 /min PHYSICIAN NO [facility] 01-15-2024 23:37-0400 SaO2% (BldA) [Mass fraction] 96 % PHYSICIAN NO [facility] 01-15-2024 23:37-0400 Systolic blood pressure 136 mm[Hg] PHYSICIAN NO [facility] 01-15-2024 19:53-0400 Body height 170.18 cm PHYSICIAN NO [facility] 01-15-2024 19:53-0400 Body temperature 98.3 [degF] PHYSICIAN NO [facility] 01-15-2024 19:53-0400 Body weight 80 kg PHYSICIAN NO [facility] 10-14-2023 03:58-0500 Body height 170.18 cm PHYSICIAN NO [facility] 10-14-2023 03:58-0500 Body temperature 99.1 [degF] PHYSICIAN NO [facility] 10-14-2023 03:58-0500 Body weight 75 kg PHYSICIAN NO [facility] 10-14-2023 03:58-0500 Diastolic blood pressure 99 mm[Hg] PHYSICIAN NO [facility] 10-14-2023 03:58-0500 Heart rate 97 /min PHYSICIAN NO [facility] 10-14-2023 03:58-0500 Respiratory rate 18 /min PHYSICIAN NO [facility] 10-14-2023 03:58-0500 SaO2% (BldA) [Mass fraction] 98 % PHYSICIAN NO [facility] 10-14-2023 03:58-0500 Systolic blood pressure 147 mm[Hg] PHYSICIAN NO [facility] 08-26-2023 23:03-0500 Body height 170.18 cm PHYSICIAN NO [facility] 08-26-2023 23:03-0500 Body temperature 98 [degF] PHYSICIAN NO [facility] 08-26-2023 23:03-0500 Body weight 79.37 kg PHYSICIAN NO [facility] 08-26-2023 23:03-0500 Diastolic blood pressure 96 mm[Hg] PHYSICIAN NO [facility] 08-26-2023 23:03-0500 Heart rate 76 /min PHYSICIAN NO [facility] 08-26-2023 23:03-0500 Respiratory rate 16 /min PHYSICIAN NO [facility] 08-26-2023 23:03-0500 SaO2% (BldA) [Mass fraction] 99 % PHYSICIAN NO [facility] 08-26-2023 23:03-0500 Systolic blood pressure 134 mm[Hg] PHYSICIAN NO [facility] 12-20-2022 20:53-0400 Body height 170.18 cm PHYSICIAN NO [facility] 12-20-2022 20:53-0400 Body temperature 98.1 [degF] PHYSICIAN NO [facility] 12-20-2022 20:53-0400 Body weight 77.2 kg PHYSICIAN NO [facility] 12-20-2022 20:53-0400 Diastolic blood pressure 75 mm[Hg] PHYSICIAN NO [facility] 12-20-2022 20:53-0400 Heart rate 83 /min PHYSICIAN NO [facility] 12-20-2022 20:53-0400 Respiratory rate 16 /min PHYSICIAN NO [facility] 12-20-2022 20:53-0400 SaO2% (BldA) [Mass fraction] 97 % PHYSICIAN NO [facility] 12-20-2022 20:53-0400 Systolic blood pressure 128 mm[Hg] PHYSICIAN NO [facility] 08-22-2022 22:16-0500 Body height 170.18 cm PHYSICIAN NO [facility] 08-22-2022 22:16-0500 Body temperature 97.2 [degF] PHYSICIAN NO [facility] 08-22-2022 22:16-0500 Body weight 90.9 kg PHYSICIAN NO [facility] 08-22-2022 22:16-0500 Diastolic blood pressure 84 mm[Hg] PHYSICIAN NO [facility] 08-22-2022 22:16-0500 Heart rate 86 /min PHYSICIAN NO [facility] 08-22-2022 22:16-0500 Respiratory rate 18 /min PHYSICIAN NO [facility] 08-22-2022 22:16-0500 SaO2% (BldA) [Mass fraction] 98 % PHYSICIAN NO [facility] 08-22-2022 22:16-0500 Systolic blood pressure 154 mm[Hg] PHYSICIAN NO [facility] 11-10-2019 22:26-0500 BMI (Body Mass Index) 24.7 kg/m2 FAMILY [facility] 11-10-2019 22:26-0500 Body Temperature 98.8 [degF] FAMILY [facility] 11-10-2019 22:26-0500 Body weight 71.7 kg FAMILY NO [facility] 11-10-2019 22:26-0500 BP Diastolic 78 mm[Hg] FAMILY NO [facility] 11-10-2019 22:26-0500 BP Systolic 131 mm[Hg] FAMILY NO [facility] 11-10-2019 22:26-0500 Height 170.18 cm [facility] NO [facility] 11-10-2019 22:26-0500 Pulse (Heart Rate) 76 /min FAMILY [facility] 11-10-2019 22:26-0500 Pulse Oximetry 99 % [facility] NO [facility] 11-10-2019 22:26-0500 Respiratory Rate 16 /min [facility] 10-19-2019 22:43-0500 BP Diastolic 58 mm[Hg] FAMILY NO [facility] 10-19-2019 22:43-0500 BP Systolic 110 mm[Hg] [facility] 10-19-2019 22:43-0500 Pulse (Heart Rate) 75 /min [facility] 10-19-2019 22:43-0500 Pulse Oximetry 99 % [facility] 10-19-2019 22:43-0500 Respiratory Rate 18 /min [facility] 10-19-2019 17:47-0500 BMI (Body Mass Index) 24.8 kg/m2 FAMILY NO [facility] 10-19-2019 17:47-0500 Body Temperature 98.1 [degF] [facility] 10-19-2019 17:47-0500 Body weight 72.05 kg [facility] 10-19-2019 17:47-0500 Height 170.18 cm [facility] 10-02-2019 20:23-0500 BP Diastolic 63 mm[Hg] FAMILY [facility] 10-02-2019 20:23-0500 BP Systolic 131 mm[Hg] [facility]ILY [facility] 10-02-2019 20:23-0500 Pulse (Heart Rate) 79 /min [facility] 10-02-2019 20:23-0500 Pulse Oximetry 97 % [facility] 10-02-2019 20:23-0500 Respiratory Rate 16 /min [facility] 10-02-2019 18:13-0500 BMI (Body Mass Index) 24.5 kg/m2 FAMILY NO [facility] 10-02-2019 18:13-0500 Body Temperature 98 [degF] [facility] 10-02-2019 18:13-0500 Body weight 71.25 kg [facility]ILY [facility] 10-02-2019 18:13-0500 Height 170.18 cm [facility] 09-06-2019 23:41-0500 BP Diastolic 76 mm[Hg] FAMILY [facility] 09-06-2019 23:41-0500 BP Systolic 136 mm[Hg] [facility] 09-06-2019 23:41-0500 Pulse (Heart Rate) 109 /min [facility] 09-06-2019 23:41-0500 Pulse Oximetry 97 % [facility] 09-06-2019 23:41-0500 Respiratory Rate 20 /min [facility] 09-06-2019 21:43-0500 Body Temperature 99.4 [degF] [facility] 09-06-2019 19:08-0500 BMI (Body Mass Index) 24.5 kg/m2 [facility] 09-06-2019 19:08-0500 Body weight 71.2 kg [facility] 09-06-2019 19:08-0500 Height 170.18 cm [facility] Encounters Encounter Date Encounter Type Care Provider Facility Start: 03-27-2025 End: 03-27-2025 Bamboo flowsheet Rowdy Honeycutt DPM Work Phone: [facility] Start: 03-27-2025 End: 03-27-2025 Bamboo flowsheet Rowdy Honeycutt DPM Work Phone: [facility] Start: 03-27-2025 End: 03-27-2025 Office outpatient visit 25 minutes Rowdy Honeycutt DPM Work Phone: [facility] Comment on above: Closed fracture of p roximal end of right fibula, unspecified fracture morphology, initial encounter (Primary Dx) Start: 03-27-2025 End: 03-27-2025 ambulatory ROWDY HONEYCUTT Not Available Start: 03-23-2025 End: 03-23-2025 Patient encounter procedure Shad Alamo DO -Ultrasound [facility] [place] Work Phone: Start: 03-23-2025 End: 03-23-2025 ambulatory Shad Alamo DO Work Phone: [facility] Work Phone: Start: 03-21-2025 End: 03-21-2025 Patient encounter procedure LEN Saab -[facility] Start: 03-21-2025 End: 03-21-2025 ambulatory Shad Alamo DO Work Phone: [facility] Work Phone: Start: 03-21-2025 End: 03-21-2025 Bamboo flowsheet Rowdy Honeycutt DPM Work Phone: [facility] Start: 03-21-2025 End: 03-21-2025 Bamboo flowsheet Rowdy Honeycutt DPM Work Phone: [facility] Start: 03-21-2025 End: 03-21-2025 Office outpatient new 45 minutes Rowdy Honeycutt DPM Work Phone: [facility] Comment on above: Closed fracture of p roximal end of right fibula, unspecified fracture morphology, initial encounter (Primary Dx) Start: 03-21-2025 End: 03-21-2025 ambulatory ROWDY HONEYCUTT Not Available Start: 03-09-2025 End: 03-09-2025 ambulatory ANUJA SAAB Not Available Start: 03-08-2025 End: 03-08-2025 Patient encounter procedure Lluvia Schmidt ACCOUNTANT HELPER -[facility] [place] Work Phone: Start: 03-02-2025 End: 03-02-2025 Emergency department patient visit Shad Alamo DO Work Phone: -Emergency Room Work Phone: Start: 02-28-2025 End: 02-28-2025 Emergency department patient visit Shad Alamo DO Work Phone: [facility]-Emergency Room Work Phone: Start: 02-23-2025 End: 02-23-2025 External Result Encounter Anuja Saab MD Work Phone: [facility] Unsolicited Start: 02-23-2025 End: 02-23-2025 External Result Encounter Anuja Saab MD Work Phone: [facility] Unsolicited Start: 02-23-2025 End: 02-23-2025 Patient encounter procedure Shad Alamo DO Work Phone: [facility] [place] Work Phone: Start: 02-23-2025 End: 02-23-2025 Orders Only Anuja Saab MD Work Phone: [facility] Comment on above: Anemia, unspecified type (Primary Dx) Start: 02-22-2025 End: 02-22-2025 Patient encounter procedure Shad Alamo DO Work Phone: [facility] Start: 02-22-2025 End: 02-22-2025 ambulatory Shad Alamo DO Work Phone: [facility] Work Phone: Start: 02-22-2025 End: 02-28-2025 External Result Encounter Anuja Saab MD Work Phone: [facility] Unsolicited Start: 02-22-2025 End: 02-28-2025 External Result Encounter Anuja Saab MD Work Phone: [facility] Unsolicited Start: 02-22-2025 End: 02-23-2025 Telephone encounter Nhi Castro RN [facility] Start: 02-22-2025 End: 02-22-2025 flow sheet [facility] Nurse [facility] Comment on above: GA: [id number] Start: 02-22-2025 End: 02-22-2025 ambulatory ANUJA SAAB Not Available Start: 02-15-2025 End: 02-15-2025 Patient encounter procedure [facility] Start: 02-15-2025 End: 02-15-2025 ambulatory Shad Alamo DO Work Phone: [facility] Work Phone: Start: 02-01-2025 End: 02-01-2025 Patient encounter procedure [facility] Start: 02-01-2025 End: 02-01-2025 ambulatory Shad Alamo DO Work Phone: [facility] Work Phone: Start: 09-24-2024 End: 09-24-2024 ambulatory PHYSICIAN NO [facility] Work Phone: Start: 09-24-2024 End: 09-24-2024 Departed Referred PHYSICIAN NO [facility] Start: 07-14-2024 End: 07-14-2024 [facility] Start: 07-11-2024 End: 07-11-2024 Emergency department patient visit PHYSICIAN NO [facility]-Emergency Room Work Phone: Start: 01-15-2024 End: 01-15-2024 Emergency department patient visit PHYSICIAN NO [facility]-Emergency [facility] Work Phone: Start: 10-14-2023 End: 10-14-2023 Emergency department patient visit PHYSICIAN NO [facility]-Emergency Room Work Phone: Start: 08-26-2023 End: 08-27-2023 Emergency department patient visit PHYSICIAN NO [facility]gency [facility] Work Phone: Start: 06-03-2023 End: 06-03-2023 Emergency department patient visit PHYSICIAN NO [facility] Work Phone: Start: 12-20-2022 End: 12-20-2022 Emergency department patient visit PHYSICIAN NO [facility]-Emergency Room Work Phone: Start: 08-22-2022 End: 08-23-2022 Emergency department patient visit PHYSICIAN NO [facility]Emergency Room Start: 06-07-2022 End: 06-07-[address] [...] Date Procedure Procedure Detail Performing Clinician Start: 03-23-2025 US scan of thyroid Boom Alamo DO Work Phone: Start: 03-21-2025 Radex ankle complete minimum 3 views Rowdy Honeycutt DPM Work Phone: Start: 03-02-2025 X-ray of right ankle Aa luis alfredo Jasmeet DO Work Phone: Start: 02-23-2025 Gonadotropin chorion ic quantitative Anuja Saab MD Work Phone: Start: 02-22-2025 Antibody screen Service [facility] Comment on above: Order Comment: JUANITA [email or web address] Result Comment: PERF ORMED BY: [facility] [address] [place] [address] PATHOLOGIST THERMOPLASTIC TECHNICIAN CALLI JAFFE M.D. Start: 02-22-2025 Complete blood count with white cell differential, automated Anuja Saab MD Work Phone: Start: 02-22-2025 Culture bacterial qu anttative colony count urine Anuja Saab MD Work Phone: Start: 02-22-2025 HEPATITIS B SURFACE ANTIGEN ([facility]) Anuja Saab MD Work Phone: Start: 02-22-2025 Hepatitis c antibody Pe krista Saab MD Work Phone: Start: 02-22-2025 Human immunodeficien cy virus antibody test Shad Alamo DO Work Phone: Comment on above: HIV-1/HIV-2 antibodi es and HIV-1 p24 antigen were NOTdetected. There is no laboratory evidence of HIV infection.HIV NegativePerformed at: [address] [id number] Director: Shai Marmolejo PhD, Phone: [phone] Start: 02-22-2025 MISC LAB Anuja tian MD Work Phone: Start: 02-22-2025 Urine culture Shad brandon DO Work Phone: Start: 07-11-2024 CT of abdomen and pe [...] Treatment Date Care Activity Detail Author Start: 05-22-2025 Influenza vaccination [facility] Start: 04-12-2025 End: 04-12-2025 Patient encounter procedure 04/12/2025 1:15 PM EDT Office Visit [facility] [address] [place] [address] Anuja Saab MD [address] [facility] [address] [place] [address] [facility] Start: 04-11-2025 End: 04-11-2025 ambulatory 04/11/2025 11:00 AM EDT Initial [facility] [address] [place] [phone] Anuja Saab MD [address] [place] [address] [facility] Start: 04-05-2025 End: 04-05-2025 Patient encounter procedure 04/05/2025 2:50 PM EDT Office Visit [facility] [address] [place] [phone] Rowdy Honeycutt, DPM [address] [facility] [address] [place] [address] [facility] Start: 03-28-2025 End: 03-28-2025 ambulatory 03/28/2025 2:30 PM EDT Evaluation [facility] [address] [place] [address] Meaghan Young, PT [facility] Start: 03-27-2025 End: 03-27-2025 Patient encounter procedure 03/27/2025 11:10 AM EDT Office Visit [facility] [address] [place] [address] Rowdy Honeycutt, DPM [address] [facility] [address] [place] [address] Closed fracture of proximal end of right fibula, unspecified fracture morphology, initial encounter (Primary Dx) [facility] Comment on above: Closed fracture of p roximal end of right fibula, unspecified fracture morphology, initial encounter (Primary Dx) Start: 03-27-2025 End: 03-27-2025 Professional / ancillary services management 03/27/2025 8:00 AM EDT Ancillary Procedure [facility] [address] [place] [phone] [facility] Start: 03-22-2025 End: 03-22-2025 Patient encounter procedure 03/22/2025 1:00 PM EDT Office Visit [facility] [address] [place] [phone] Anuja Saab MD [address] [place] [address] [facility] Start: 03-21-2025 End: 03-21-2025 Patient encounter procedure 03/21/2025 1:00 PM EDT Office Visit [facility] [address] [facility] [phone] Rowdy Honeycutt, DPM [address] [facility] [address] [place] [address] Arrived [facility] Comment on above: Arrived Start: 03-15-2025 End: 03-15-2025 Patient encounter procedure 03/15/2025 10:45 AM EDT Office Visit [facility] [address] [place] [phone] Anuja Saab MD [address] [place] [address] [facility] Start: 02-22-2025 End: 02-22-2025 Urine culture [facility] Start: 02-22-2025 [facility] Start: 02-22-2025 End: 02-22-2026 Bacteria identified in Urine by Culture [facility] Comment on above: Expected: 02/22/2025 , Expires: 02/22/2026 Start: 02-22-2025 End: 02-22-2026 Blood type and Indirect antibody screen panel - Blood Type and screen Lab Routine care, subsequent in first trimester Expected: 02/22/2025, Expires: 02/22/2026 [facility] Comment on above: Expected: 02/22/2025 , Expires: 02/22/2026 Start: 02-22-2025 End: 02-22-2026 CBC W Auto Differential panel - Blood CBC and differential Lab Routine care, subsequent in first trimester Expected: 02/22/2025, Expires: 02/22/2026 [facility] Comment on above: Expected: 02/22/2025 , Expires: 02/22/2026 Start: 02-22-2025 End: 02-22-2026 DRUG SCREEN 17 W/CONF, UR DRUG SCREEN 17 W/CONF, UR Lab Routine Encounter for drug screening Expected: 02/22/2025, Expires: 02/22/2026 [facility] Comment on above: Expected: 02/22/2025 , Expires: 02/22/2026 Start: 02-22-2025 End: 02-22-2026 hCG, quantitative, hCG, quantitative, Lab Routine examination or test, positive result Expected: 02/22/2025 (Approximate), Expires: 02/22/2026 [facility] Work Phone: Comment on above: Expected: 02/22/2025 (Approximate), Expires: 02/22/2026 Start: 02-22-2025 End: 02-22-2026 Hepatitis B virus surface Ag [Presence] in Serum or Plasma by Immunoassay [facility] Comment on above: Expected: 02/22/2025 , Expires: 02/22/2026 Start: 02-22-2025 End: 02-22-2026 Hepatitis C virus Ab [Presence] in Serum or Plasma by Immunoassay Hepatitis C antibody Lab Routine care, subsequent in first trimester Expected: 02/22/2025, Expires: 02/22/2026 [facility] Comment on above: Expected: 02/22/2025 , Expires: 02/22/2026 Start: 02-22-2025 End: 02-22-2026 HIV-2 antigen assay HIV-2 antigen Lab Routine care, subsequent in first trimester Expected: 02/22/2025, Expires: 02/22/2026 [facility] Comment on above: Expected: 02/22/2025 , Expires: 02/22/2026 Start: 02-22-2025 End: 02-22-2026 Rpr (dx) w/refl titer and confirmatory testing Rpr (dx) w/refl titer and confirmatory testing Lab Routine care, subsequent in first trimester Expected: 02/22/2025, Expires: 02/22/2026 [facility] Comment on above: Expected: 02/22/2025 , Expires: 02/22/2026 Start: 02-22-2025 End: 02-22-2026 Rubella antibody, IgG Rubella antibody, IgG Lab Routine care, subsequent in first trimester Expected: 02/22/2025, Expires: 02/22/2026 [facility] Comment on above: Expected: 02/22/2025 , Expires: 02/22/2026 Start: 02-22-2025 End: 02-22-2026 Urinalysis complete panel - Urine [facility] Work Phone: Comment on above: Expected: 02/22/2025 , Expires: 02/22/2026 Start: 09-24-2024 Urine culture [facility] Start: 09-24-2024 Bacteria identified in Urine by Culture Urine Culture [facility] Start: 01-15-2024 CT Abdomen and Pelvi s WO contrast [facility] Start: 01-15-2024 CT of abdomen and pe lvis without contrast CT abdomen pelvis wo con [facility] Start: 01-15-2024 Bacteria identified in Urine by Culture [facility] Start: 10-14-2023 Bacteria identified in Urine by Culture [facility] Start: 10-14-2023 Genital Culture Genital Culture [facility] Start: 10-14-2023 [facility] Start: 08-26-2023 [facility] Start: 08-26-2023 Bacteria identified in Urine by Culture [facility] Start: 12-20-2022 [facility] Start: 12-20-2022 Bacteria identified in Urine by Culture Urine Culture [facility] Start: 08-22-2022 [facility] Bacteria identified in Genital specimen by Aerobe culture [facility] Work Phone: Bacteria identified in Genital specimen by Aerobe culture [facility] Bacteria identified in Genital specimen by Aerobe culture [facility] Bacteria identified in Urine by Culture [facility] Chlamydia trachomati s DNA [Presence] in Unspecified specimen by LEV with probe detection [facility] Hepatitis C virus Ig G Ab [Presence] in Serum or Plasma by Immunoassay [facility] HIV 1+2 Ab+HIV1 p24 Ag [Presence] in Serum or Plasma by Immunoassay [facility] HIV-1/HIV-2 antigen/antibody combination immunoassay HIV-1 and HIV-2 antibodies Lab Routine 02/22/2025 2:20 PM EDT [facility] Work Phone: Measles virus IgG Ab [Units/volume] in Serum by Immunoassay [facility] Neisseria gonorrhoea e DNA [Presence] in Unspecified specimen by LEV with probe detection [facility] Patient Education [facility] Patient referral [facility] Reagin Ab [Presence] in Serum by RPR [facility] RPR W/RFX TO QUANT & TP ABS ([facility]) RPR W/RFX TO QUANT & TP ABS ([facility]) Lab Routine 02/22/2025 2:20 PM EDT [facility] Healthcare Thyroid stimulating immunoglobulins actual/normal in Serum [facility] Trichomonas vaginali s DNA [Presence] in Unspecified specimen by LEV with probe detection [facility] Immunizations Immunization Date Immunization Notes Care Provider Fa [facility] 04-28-2020 tetanus toxoid, redu julianne diphtheria toxoid, and acellular pertussis vaccine, adsorbed PHYSICIAN NO FAMILY [facility] Payers Date Payer Category Payer Self-pay [id number] 2023 Private Health Insurance [facility] [id number] 2023 Medicaid [id number] 2016 Unknown [id number] 2000 Unknown [id number] 2.16.840.1.020242.3.579.2. 593 2000 Unknown [id number] 2.16.840.1.941888.3.579.2. 173 2000 Unknown [id number] 2.16.840.1.893643.3.579.2. 1259 2000 Unknown [id number] 2.16.840.1.187582.3.579.2. 1259 2000 Unknown [id number] 2.16.840.1.562152.3.579.2. 1259 2000 Unknown [id number] 2.16.840.1.825254.3.579.2. 1259 2000 Unknown [id number] 2.16.840.1.607328.3.579.2. 1259 2000 Unknown [id number] 2.16.840.1.159184.3.579.2. 1259 2000 Unknown [id number] 2.16.840.1.767863.3.579.2. 1259 1959 Unknown [id number] 1959 Unknown [id number] Unknown [id number] Unknown Insurance No [facility] [id number] Unknown Regular Auto/Medical [id number] Unknown [id number] 2.16.840.1.655269.3.579.2. 531 Unknown [id number] 2.16.840.1.778147.3.579.2. 531 Unknown [id number] 2.16.840.1.073400.3.579.2. 531 Unknown [id number] 2.16.840.1.546975.3.579.2. 531 Unknown [id number] 2.16.840.1.624198.3.579.2. 531 Unknown [id number] 2.16.840.1.869681.3.579.2. 531 Unknown [id number] 2.16.840.1.072759.3.579.2. 531 Unknown [id number] 2.16.840.1.589629.3.579.2. 531 Unknown [id number] 2.16.840.1.395617.3.579.2. 531 Unknown [id number] 2.16.840.1.345475.3.579.2. 531 Social History Date Type Detail Facility Start: 11-10-2019 End: 02-22-2025 Tobacco smoking status KSIS Never smoked tobacco (finding) [facility] Start: 2000 Sex Assigned At Female F [facility] Start: 08-22-2022 End: 07-11-2024 Tobacco smoking status NHIS Smoker (finding) [facility] Start: 01-15-2024 Tobacco smoking status KSIS Current some day smoker [facility] Start: 09-26-2024 End: 02-28-2025 Sex Female (finding) [facility] Start: 02-22-2025 Tobacco use and exposure Smokeless tobacco non-user [facility] Start: 02-22-2025 End: 03-27-2025 Alcoholic beverage intake Ex-drinker (finding) [facility] Start: 02-22-2025 End: 03-21-2025 History of Social function [facility] Start: 02-22-2025 End: 03-21-2025 Tobacco use panel [facility] Start: 02-22-2025 Alcohol Comment Caffiene Intak e- Pt reports none due to chronic kidney stones [facility] Start: 02-04-2025 [facility] Start: 2000 Sex assigned at Not on file [facility] Start: 03-02-2025 Tobacco smoking status [facility] Smokes tobacco daily (finding) [facility] NEGATED: Highlighted row [facility] NEGATED: Highlighted row N [facility] Medical Equipment Procedure Code Equipment Code Equipment [...] Goals Date Patient Goal Desired Activity /State Personal health goal Clinical Notes 08-17-2021 to 03-27-2025 Rowdy Honeycutt DPM - 03/27/2025 11:10 AM EDTRowdy Honeycutt DPM - 03/21/2025 1:00 PM EDT Note Date & Type Note Facility 03-27-2025 History of Present illness Narrative Patient: Beatris Mack : 2000 PCP: No primary care provider on file. SUBJECTIVE This is a 24 y.o. female that presents today for a chief complaint of right ankle fracture diagnosed that [facility]. Patient has been weight-bearing for the [...] condition and operative vs nonoperative care. The surgical plans, risks, alternatives, benefits, post op complications and manager long term care expectations were discussed including but not limited to: infection,bone infection,wound dehiscence hardware failure and irritation,wound dehiscence,delay union/mal union/non union of bone. RSDS,neuroma,duty limitations,DVT/PE, GA,nerve damage, scar, loss of sensation, swelling. Pt [...] with an ASA of a 2. Rowdy Honeycutt DPM, FACFAS H&P up to date and current (date) Date: March 27, 2025 Rowdy Honeycutt DPM documented in this encounter [facility] 03-23-2025 Radiology Diagnostic study note [facility] [place] [address] [place] [address] Ultrasound Report Signed Patient: Beatris Mack MR#: [id number] : 2000 Acct:[id number] Age/Sex: 24 / F ADM Date: 5 Loc: Room: Type: [facility] Attending Dr: Shad Alamo DO Ordering Provider: Shad Alamo DO Date of Service: 03/23/25 US/US thyroid: Decreased thyroid stimulating hormone (TSH) level Copies to: Shad Alamo DO~ Thyroid Ultrasound HISTORY: Decreased TSH level. COMPARISON: None The RIGHT lobe measures 5.1 x 2.0 x 2.2cm. LEFT lobe measures 4.8 x 1.4 x 1.7 cm. Isthmus has an AP dimension of 0.2cm. Right mid anechoic nodule with echogenic focus measures up to 6 mm. Left superior anechoic nodule with echogenic focus measures up to 3 mm.. No microcalcifications identified. Symmetric blood flow of the thyroid gland identified. US/US thyroid IMPRESSION: Subcentimeter anechoic thyroid nodules. Impression dictated by: Shaan Bojorquez M.D. 03/23/2025 4:40 PM Dictation Location: [place] [address] Tech: Renetta Beck Transcribed By: RADHA 03/23/25 1640 Dictated By: Shaan Bojorquez DO 03/23/25 1634 Signed By: 03/23/25 1640 [facility] 03-21-2025 History of Present illness Narrative Patient: Beatris Mack : 2000 PCP: No primary care provider on file. SUBJECTIVE This is a 24 y.o. female that presents today for a chief complaint of right ankle fracture diagnosed that [facility]. Patient has been weight-bearing for the past 3 weeks and states she has diminished pain at this time at a 5/10 and was not wearing a posterior splint and weight-bearing on today's visit. She has had crutches in the past [...] and straps and pneumatically inflated for proper custom fitting by Rowdy Honeycutt DPM and staff. A verbal order was given for dispensing of device. The patient is ambulatory and may benefit functionally from this device. It may be used for the following conditions as noted per medical diagnosis. Discussed conservative and surgical treatment options for patient today including postoperative time frame and surgical procedure in detail. Patient may continue with conservative treatments including dcsb-nib-ugtwsbu anti-inflammatories and other treatments suggested today. Patient may want to be scheduled for surgical intervention in the near future. Patient be scheduled in the near future for right fibular ORIF of fracture Rowdy Honeycutt DPM documented in this encounter [facility] 03-08-2025 Evaluation note Diagnosis Onset Date Resolution Fracture of lateral malleolus of right ankle noneactive March 08, 2025 2:12pm [facility] Work Phone: [phone] 324-340906-05-2025 History of Present illness Narrative* Anuja Saab MD - 02/23/2025 5:28 PM EDT Low indicies documented in this encounterCenterPointe [id number] Telephone encounter Note* Telephone Encounter - Nhi Castro RN - 02/23/2025 11:48 AM EDT Called and spoke with patient, states she woke up this morning with nothing on her panty liner but could feel it dripping out when using the rest room. Pt still stating bleeding is pinkish in color. Pt denies cramping today but does report some back pain. States she was unable to have HCG drawn yesterday but will be going shortly to have it drawn today. Discussed with pt it is reassuring she is not having bright red bleeding and cramping has improved,advised I would look out for HCG and call with results. Encouraged pt to call if symptoms worsen. [facility] [id number] Miscellaneous Notes* Telephone Encounter - Nhi Castro RN - 02/23/2025 11:48 AM EDT Called and spoke with patient, states she woke up this morning with nothing on her panty liner but could feel it dripping out when using the rest room. Pt still stating bleeding is pinkish in color. Pt denies cramping today but does report some back pain. States she was unable to have HCG drawn yesterday but will be going shortly to have it drawn today. Discussed with pt it is reassuring she is not having bright red bleeding and cramping has improved,advised I would look out for HCG and call with results. Encouraged pt to call if symptoms worsen. * Telephone Encounter - Nhi Castro RN - 02/22/2025 2:03 PM EDT Pt called, requesting labs be sent to [facility]. Labs sent * Telephone Encounter - Nhi Castro RN - 02/22/2025 1:06 PM EDT Patient calling in to hospital. States she started having bleeding 10 minutes ago. States she did have her first visit today. Pt reporting some mild cramping as well. States bleeding is pink colored and it is not very much, enough to wear a panty liner but not like a period . Discussed this can be normal in early and offered to have HCG ordered. Pt agreeable, order sent to [facility] per pt request. Advised if bleeding becomes heavy, bright red, and/or severe cramping occurs to go to hospital. documented in this encounterCenterPointe [id number] Telephone encounter Note* Telephone Encounter - Nhi Castro RN - 02/22/2025 2:03 PM EDT Pt called, requesting labs be sent to [facility]. Labs sent [facility] [id number] Telephone encounter Note* Telephone Encounter - Nhi Castro RN - 02/22/2025 1:06 PM EDT Patient calling in to hospital. States she started having bleeding 10 minutes ago. States she did have her first visit today. Pt reporting some mild cramping as well. States bleeding is pink colored and it is not very much, enough to wear a panty liner but not like a period . Discussed this can be normal in early and offered to have HCG ordered. Pt agreeable, order sent to [facility] per pt request. Advised if bleeding becomes heavy, bright red, and/or severe cramping occurs to go to hospital. [facility] [id number] History of Present illness Narrative* Dayna Alvarado MA - 02/22/2025 8:30 AM EDT Name: Beatris Mack Date/Time of Service:02/22/2025 9:27 AM :2000 Age: 24 y.o. Chief Complaint Chief Complaint Patient presents with Initial Visit Nurse visit Beatris Mack is a 24 y.o. at 4w4d with a working estimated date of delivery of 10/28/2025,by Last Menstrual Period who presents for an initial visit. OB History Para Term AB Living 4 1 1 2 1 SAB IAB Ectopic Multiple Live Births 1 1 1 # Outcome Date GA Lbr Raudel/2nd Weight Sex Type Anes PTL Lv 4 Current 3 Term 04/27/20 38w0d 7 lb 5 oz F Vag-Spont N LAVELLE 2 SAB 2013 1 IAB Past Medical / Surgical History Past Medical History: Diagnosis Date Anxiety and depression (CMS/HCC) 01/2025 BV (bacterial vaginosis) Pt reports chronic BV for approximatley 2 years Vaccine for VZV (varicella-zoster virus) In Childhood Past Surgical History: Procedure Laterality Date KIDNEY STONE SURGERY 05/2020 KIDNEY STONE SURGERY 2016 KIDNEY STONE SURGERY 08/2024 TONSILLECTOMY Family History Family History Problem Relation Name Age of Onset Other (kidney stones) Mother Other (kidney stones) Father Diabetes Father Heart attack Father No Known Problems Sister No Known Problems Brother Autism Daughter No Known Problems Maternal Grandmother Cancer Maternal Grandfather Breast cancer Paternal Grandmother Heart attack Paternal Grandfather Social History reports that she has never smoked. She has never used smokeless tobacco. She reports that she does not currently use alcohol. She reports that she does not currently use drugs. MEDICATIONS: Current Outpatient Medications on File Prior to Visit Medication Sig Dispense Refill hydrOXYzine HCl (Atarax) 25 MG tablet Take by mouth Vit-Fe Fumarate-FA ( PO) Take by mouth sertraline (Zoloft) 50 MG tablet Take by mouth Daily No current facility-administered medications on file prior to visit. Allergies Allergies Allergen Reactions Penicillins Hives Patient reports nausea and no vomiting. Discussed smaller meals, he products, OTC Vitamin B6 50mg BID and Unisom 25mg BID Daily vitamins prescribed Genetic and Chromosomal testing discussed. Pt given brochure to chk with ins and discuss with PPJ at first appt. Last PAP: [facility] 02/12- Abnormal (Per pt. BV) ASSESSMENT / PLAN Labs Ordered to [facility] Appointments scheduled for OB US 03/27 and PPJ on 04/11 Dayna Alvarado MA 02/22/2025 9:27 AM documented in this encounterCenterPointe [id number] NoteEducation Materials Obstetrics and Gynecology Trichomoniasis Trichomoniasis is [...] It often has no symptoms (is asymptomatic), especiallyin men. If not treated, trichomoniasis can last [...] think you may be , tell your healthcare provider right away. Some medicines that are used to treat the infection should not be taken during . Your health care provider may recommend eenp-zej-wvhcbdv medicines or creams to help relieve itching or irritation. You may be tested for infection again 3 months after treatment. Follow these instructions at home: ? Take and use tazc-dmw-zofbxhz and prescription medicines, including creams, only as [...] finish your medicine, or until your health careprovider approves. Ask your health care provider when you may start to have sex again. ? Discuss your infection with your sexual partner(s). Make sure that your partner gets tested and treated, if necessary. This informatio (more content not included)...[facility] noteNo assessment information availableSt. [facility] Work Phone: Evaluation note* Diagnosis Anemia, unspecified type- Primary documented in this encounter [facility] HealthcareEvaluation note* Diagnosis Urinary tract infection without hematuria, site unspecified- Primary examination or test, positive result documented [facility] this encounter [facility]* Diagnosis care, subsequent in first trimester Encounter for drug screening documented in this encounter [facility]* Diagnosis Closed fracture of proximal end of right fibula, unspecified fracture morphology, initial encounter- Primary documented in this encounter [facility]* Diagnosis Closed fracture of proximal end of right fibula, unspecified fracture morphology, initial encounter- Primary documented in this encounter [facility] Dis[facility] instructions Additional Instructions Do not have sexual intercourse for at least 2 weeks, this includes oral sex You need to use condoms Right all your sexual partners and their sexual partners must be treated Do not have sex again and said everyone has been treated or you will pass disease back in forth You may call [phone] for your results in 3 days Please follow-up with Dr. Saab office Is important that you take your antibiotic as instructed until gone Please return here if you develop any abdominal pain, vaginal bleeding, increased discharge or any other concernSt. [facility] Work Phone: Hospital Discharge instructions Additional Instructions If your symptoms return/worsen or you develop any further concerns or symptoms please see your doctor or return to the emergency department immediately. Please be sure to follow-up with the results of your tests.[facility] Work Phone: Hospital Discharge instructions Additional Instructions If you end up having bacterial vaginosis or any sexually transmitted infections, we will call you and prescribe appropriate antibiotics. Follow-up with your PATIENT COORDINATOR FRONT DESK physician for any persistent symptoms in 5 to [address] Work Phone: Hospital Discharge instructions Additional Instructions If your symptoms return/worsen or you develop any further concerns or symptoms please see your doctor or return to the emergency department immediately.[facility] Work Phone: Reason for referral (narrative)No reason for referral information availableSelect Medical [facility] Work Phone: Summary Purpose Family History [...] 12:42pm Unknown September 24, 2024 11 :55pm Chief Complaint Admit Date F41.1 February 01, 2025 2:53p m Chief Complaint Admit Date F41.1 February 01, 2025 2:53p m R79.89 February 15, 2025 2:40p m Chief Complaint Admit Date F41.1 February 01, 2025 2:53p m R79.89 February 15, 2025 2:40p m Z34.81 February 22, 2025 2:08p m Chief Complaint Admit Date F41.1 February 01, 2025 2:53p m R79.89 February 15, 2025 2:40p m Z34.81 February 22, 2025 2:08p m Z34.81 February 23, 2025 12:43 pm Chief Complaint Admit Date F41.1 February 01, 2025 2:53p m R79.89 February 15, 2025 2:40p m Z34.81 February 22, 2025 2:08p m Z34.81 February 23, 2025 12:43 pm bleeding, February 28, 2025 5:28 pm Chief Complaint Admit Date F41.1 February 01, 2025 2:53p m R79.89 February 15, 2025 2:40p m Z34.81 February 22, 2025 2:08p m Z34.81 February 23, 2025 12:43 pm bleeding, February 28, 2025 5:28 pm fall/ankle pain March 02, 2025 4:09 pm right ankle injury March 08, 2025 2:12 pm Z32.01, O20.9 March 21, 2025 2:09p m Reason for Visit Admit Date Fracture of lateral malleolus of right a nkle March 08, 2025 2:12pm Chief Complaint Admit Date F41.1 February 01, 2025 2:53p m R79.89 February 15, 2025 2:40p m Z34.81 February 22, 2025 2:08p m Z34.81 February 23, 2025 12:43 pm bleeding, February 28, 2025 5:28 pm fall/ankle pain March 02, 2025 4:09 pm right ankle injury March 08, 2025 2:12 pm Z32.01, O20.9 March 21, 2025 2:09p m R79.89 March 23, 2025 1:36p m Assessments No Assessments Information Available Additional Source Comments INFORMATION SOURCE (unrecogn ized section and content) DATE CREATED AUTHOR 05/23/2019 [facility] DATE CREATED AUTHOR AUTHOR'S ORGANIZ ATION 06/19/2020 [facility] DATE CREATED AUTHOR AUTHOR'S ORGANIZ ATION 09/12/2021 [facility] DATE CREATED AUTHOR AUTHOR'S ORGANIZ ATION 08/06/2022 [facility] DATE CREATED AUTHOR AUTHOR'S ORGANIZ ATION 07/21/2024 [facility] DATE CREATED AUTHOR AUTHOR'S ORGANIZ ATION 03/26/2025 [facility] DATE CREATED AUTHOR AUTHOR'S ORGANIZ ATION 03/31/2025 [facility] EPIC Care Teams (unrecognized sec tion and content) Team Status: Inactive Member Role Status Dates PHYSICIAN NO FAMILY Primary Care Provider Active Lilliam Linares DO RES Active Selena Gonzáles Jr, MD Emergency Provider Active Team Status: Active Member Role Status Dates PHYSICIAN NO FAMILY Primary Care Provider Active Team Status: Inactive Member Role Status Dates PHYSICIAN NO FAMILY Primary Care Provider Active Aura Brown LYRIC Emergency Provider Active Team Status: Inactive Member Role Status Dates PHYSICIAN NO FAMILY Primary Care Provider Active Elias Rogers DO Emergency Provider Active Team Status: Inactive Member Role Status Dates PHYSICIAN NO FAMILY Primary Care Provider Active Felix Simpson DO Emergency Provider Active Team Status: Inactive [...] 2023 End: October 14, 2023 Cecilio Brody DO Emergency Provider Active Start: October 14, [...] September 24, 2024 End: September 24, 2024 Team Status: Active Member Role Status Dates Shad Alamo DO Primary Care Provider Active Team Status: Inactive Member Role Status Dates Shad Alamo DO Primary Care Provide r, Attending Provider Active Start: February 01, 2025 End: February 01, 2025 Team Status: Active Member Role Status Dates Services [facility] Senior Primary Care Provider Ac tive Team Status: Inactive Member Role Status Dates Shad Alamo DO Attending Provider Active St art: February 15, 2025 End: February 15, 2025 Services [facility] Primary Care Provider Ac tive Start: February 15, 2025 End: February 15, 2025 Woodworker Helper Relationship Specialty Start Date End Date Ivy Corbin NP [address] [place] [address] [facility] 03/21/24 Woodworker Helper Relationship Specialty Start Date End Date Ivy Corbin PEST CONTROL WORKER [address] [place] [address] PCP [facility] 03/21/24 Team Status: Inactive Member Role Status Dates Services [facility] Primary Care Provider Ac tive Start: February 22, 2025 End: February 22, 2025 Anuja Saab MD Attending Provider Active St art: February 22, 2025 End: February 22, 2025 Woodworker Helper Relationship Specialty Start Date End Date Ivy Corbin PEST CONTROL WORKER [address] [place] [address] [facility] 03/21/24 Woodworker Helper Relationship Specialty Start Date End Date Ivy Corbin PEST CONTROL WORKER [address] [place] [address] [facility] 03/21/24 Woodworker Helper Relationship Specialty Start Date End Date Ivy Corbin NP [address] [place] [address] [facility] 03/21/24 Team Status: Inactive Member Role Status Dates Services [facility] Primary Care Provider Ac tive Start: February 23, 2025 End: February 23, 2025 Anuja Saab MD Attending Provider Active St art: February 23, 2025 End: February 23, 2025 Woodworker Helper Relationship Specialty Start Date End Date Ivy Corbin PEST CONTROL WORKER [address] [place] [address] [facility] 03/21/24 Woodworker Helper Relationship Specialty Start Date End Date Ivy Corbin PEST CONTROL WORKER [address] [place] [address] PCP [facility] 03/21/24 Team Status: Inactive Member Role Status Dates Services [facility] Primary Care Provider Ac tive Start: February 28, 2025 End: February 28, 2025 Aura Brown APRN Emergency Provider Active Start: February 28, 2025 End: February 28, 2025 Woodworker Helper Relationship Specialty Start Date End Date Ivy Corbin PEST CONTROL WORKER [address] [place] [address] PCP [facility] 03/21/24 Woodworker Helper Relationship Specialty Start Date End Date Ivy Corbin NP [address] [place] [address] PCP [facility] 03/21/24 Team Status: Inactive Member Role Status Dates Shad Alamo DO Primary Care Provider Active Start: February 01, 2025 End: February 01, 2025 Shad Alamo DO Attending Provider Active St art: February 01, 2025 End: February 01, 2025 Team Status: Inactive Member Role Status Dates [facility] Primary Care Provider Ac tive Start: March 02, 2025 End: March 02, 2025 Brock Mims APRN Emergency Provider Active Start: March 02, 2025 End: March 02, 2025 Team Status: Inactive Member Role Status Dates [facility] Primary Care Provider Ac tive Start: March 08, 2025 End: March 08, 2025 Lluvia Ellis APRN Attending Provider Active Sta rt: March 08, 2025 End: March 08, 2025 Team Status: Inactive Member Role Status Dates [facility] Primary Care Provider Ac tive Start: March 21, 2025 End: March 21, 2025 Anuja Saab MD Attending Provider Active St art: March 21, 2025 End: March 21, 2025 Team Status: Inactive Member Role Status Dates [facility] Primary Care Provider Ac tive Start: March 23, 2025 End: March 23, 2025 Shad Alamo DO Attending Provider Active St art: March 23, 2025 End: March 23, 2025 Woodworker Helper Relationship Specialty Start Date End Date Ivy Corbin NP [address] [place] [address] PCP - [facility] 03/21/24 Unallocated, Shawna ProviderMD [address] [place] [address] PCP - General Family Medicine 03/22/25 Woodworker Helper Relationship Specialty Start Date End Date Ivy Corbin NP [address] [place] [address] PCP - [facility] 03/21/24 Unallocated, Shawna ProviderMD [address] [place] [address] PCP - General Family Medicine 03/22/25 Goals (unrecognized section and content) Goals may [...] may be documented in an alternate section Reason for Visit (unrecogniz ed section and content) Reason Comments Initial Visit Nurse visit Reason Comments Foot/ankle Fracture Reason Comments Consent Or Instructions preop FOR RECORDS PERTAINING TO PATIENTS WHO ARE [...] BE BASED ON THE PRIMARY CLINICAL RECORDS. [facility] provides no warranty or guarantee of the accuracy or completeness of information in this document.
--- OUTSIDE RECORDS SUMMARY | 2025-04-01 16:19 | XMS_ITS | Patient Health Record ---
Author Organization [facility] Address [address] [place] [address] Care Team Providers Care Net Sql Developer Name Role Phone Shad Alamo Primary Care Provider [phone] Maira Arroyo Unavailable [phone] Sheri Huang Unavailable [phone] Allergies Allergen (clinical drug ingredient) Drug/Non Drug Allergy documented on EMR Reaction Allergy Type Onset Date Status Omnicef hives Drug Allergy Active penicillin G Penicillin G Potassium hives Drug Allergy Active Results Component Value Reference Range Notes Free T4 (Free Thyroxine) Reviewed date:02/15/2025 10:25:17 AM Interpretation: Performing Lab: Notes/Report: Reason for Exam Generalized anxiety disorder Free T4 (Free Thyroxine) 0.79 0.61-1.12 ng/dL US thyroid (Not yet reviewed by provider) Interpretation: Performing Lab: Notes/Report: [facility] Main [place] [address] [place] [id number] Ultrasound Report Signed Patient: Beatris Mack MR#: [id number] : 2000 Acct:[id number] Age/Sex: 24 / F ADM Date: 03/23/25 Loc: Room: Type: [facility] Attending Dr: Shad Alamo DO Ordering Provider: [...] Bojorquez M.D. 03/23/2025 4:40 PM Dictation Location: [email or web address] Tech: Renetta Ojedarodriguez Transcribed By: PWS 03/23/25 1640 Dictated By: Shaan Bojorquez DO 03/23/25 1634 Signed By: <Electronically signed by Shaan Bojorquez DO in OV> 03/23/25 1640 Thyroid Stimulating Immunogl ob Reviewed date:02/20/2025 09:45:51 AM Interpretation: Performing Lab:, [facility], [address] Notes/Report: Reason for Exam Decreased thyroid stimulating hormone (TSH) level Thyroid Stimulating Immunoglob <0.10 0.00-0.55 Performed at: [facility] [address] [id number] Pin Drafter: Mami Frank MD, Phone: [phone] Thyroid Stim Hormone w/Rflx Reviewed date:02/15/2025 10:25:17 AM Interpretation: Performing Lab: Notes/Report: Reason for Exam Generalized anxiety disorder Thyroid Stim Hormone w/Rflx 0.38 0.45-5.33 u[i U]/mL Comprehensive Metabolic Pane l Reviewed date:02/15/2025 10:25:17 AM Interpretation: Performing Lab:, [facility], [address] Notes/Report: Reason for Exam Generalized anxiety disorder Glucose 94 70-100 mg/dL Random Glucose Reference Range is dependent on time and content of last meal. Glucose of more than 200 mg/dL in a nonstressed, ambulatory subject supports the diagnosis of Diabetes Mellitus. ADA recommended reference range Blood Urea Nitrogen 13 7-25 mg/dL Creatinine 0.73 0.60-1.20 mg/dL Sodium 136 136-145 mmol/L Potassium 4.2 3.5-5.1 mmol/L Chloride 103 98-107 mmol/L Carbon Dioxide 29.9 21.0-31.0 mmol/L Calcium 10.2 8.6-10.3 mg/dL Total Protein 7.6 6.4-8.9 g/dL Albumin Level 4.6 3.5-5.7 g/dL Globulin 3.0 Albumin/Globulin Ratio 1.5 Bilirubin,Total 0.5 0.3-1.0 mg/dL Aspartate Amino Transferase 17 13-39 U/L Alanine Aminotransferase 21 7-52 U/L Alkaline Phosphatase 67 34-104 U/L Estimated GFR >60.0 Anion Gap 7.3 6.0-15.0 meq/L Complete Blood Count Auto Di ff Reviewed date:02/15/2025 10:25:17 AM Interpretation: Performing Lab:, [facility], [address] Notes/Report: Reason for Exam Generalized anxiety disorder White Blood Count 8.2 3.8-11.6 10*3/uL Uncorrected WBC 8.2 3.8-11.6 10*3/uL Red Blood Count 4.40 3.60-5.00 10*6/uL Hemoglobin 12.9 11.8-15.4 g/dL Hematocrit 38.6 34.0-46.4 % Mean Corpuscular Volume 87.7 80-100 fL Mean Corpuscular Hemoglobin 29.4 24.7-34.3 pg Mean Corpuscular HGB Conc 33.5 32.0-35.0 g/dL Red Cell Distribution Width 14.9 11.9-15.3 % Platelet Count 376 150-450 10*3/uL Mean Platelet Volume 9.2 6.3-10.7 fL Neutrophils % (Auto) 57.5 . % Lymphocytes % (Auto) 35.2 . % Monocytes % (Auto) 5.8 . % Eosinophils % (Auto) 0.6 . % Basophils % (Auto) 0.9 . % NRBC% 0.0 0-0.5 /100{WBC} Neutrophils # (Auto) 4.7 1.8-7.7 10*3/uL Lymphocytes # (Auto) 2.9 1.00-4.8 10*3/uL Monocytes # (Auto) 0.5 0.0-0.8 10*3/uL Eosinophils # (Auto) 0.1 0.0-0.45 10*3/uL Basophils # (Auto) 0.1 0.0-0.2 10*3/uL Reason For Referral Reason generalized anxiety with depression over last 4 years 01/12 Attempt Diagnosis 1 Generalized anxiety disorder (F41.1) Referral Organization [facility] Referring Provider First Name Shad Referring Provider Last Name Jasmeet Referring Provider Speciality Family Pra ctice Referred Organization [facility] Referred Address [address] ,[place],[address], Referred Provider Specialty Talk Ther apy Referral Priority Routine Medications Medication SIG (Take, Route, Fr equency, Duration) Notes Start Date End Date Status traZODone HCl 100 MG 1 tablet at bedtime Orally Once a day; Duration: 30 days 01/09/2025 Ac tive hydrOXYzine HCl 25 MG 1 tablet as needed Orally Once a day; Duration: 30 days 01/09/2025 Active Sertraline HCl 50 MG 1 tablet Orally Onc e a day; Duration: 30 days 01/09/2025 Active Social History Tobacco Use: Social History Observation Description Date Details (start date - stop date) Unknown Sexual Hx: Question Answer Notes Had sex in the last 12 months (vaginal, oral, or anal)? Yes with Men only Use protection? No Prevention Strategies discussed: Condoms Have you ever had an STD? No AUDIT-C (Standard) Question Answer Notes Did you have a drink contain ing alcohol in the past year? Yes How often did you have a dri nk containing alcohol in the past year? Monthly or less (1 point) How many drinks did you have on a typical day when you were drinking in the past year? 1 or 2 drinks (0 point) How often did you have six o r more drinks on one occasion in the past year? 2 to 4 times a month (2 points) Points 3 Interpretation Positive Tobacco Control (Standard) Question Answer Notes Tobacco use: Uses tobacco in other forms Section Notes: pt vape Problems Problem Type SNOMED Code ICD Code Onset Dates Problem Status W/U Status Risk Notes Problem Primigravida (632053998) Encounter for supervision of normal first , unspecified trimester (Z34.00) Active confirm Problem Insomnia disorder related to another mental disorder (70944567) Psychophysiological insomnia (F51.04) Active confirmed Problem Generalized anxiety disorder (78422652) Generalized anxiety disorder (F41.1) Active confirmed Vital Signs Heart Rate 82 /min 01/09/2025 Temperature 97.5 degrees Fahrenheit 01/09/2025 Respiratory Rate 18 /min 01/09/2025 Oximetry 97 % 01/09/2025 Blood pressure diastolic 81 mm Hg 01/09/2025 Height 67 in 01/09/2025 Blood pressure systolic 117 mm Hg 01/09/2025 Weight 175.0 lbs 01/09/2025 BMI 27.41 kg/m2 01/09/2025 Encounters Encounter Location Date Provider Diagnosis [address] [place] [address] 02/15/2025 Shad Alamo Decreased thyroid stimulating hormone (TSH) level R79.89 [address] [place] [address] 02/20/2025 Shad Alamo Decreased thyroid stimulating hormone (TSH) level R79.89 [address] [place] [address] 02/22/2025 Shad Alamo [facility] [address] [place] [place] [address] 03/27/2025 Shad Alamo [address] [place] [address] 03/30/2025 Shad Alamo Generalized anxiety disorder F41.1 [facility] [address] [place] [address] 01/09/2025 Shad Alamo Generalized anxiety disorder F41.1 and Psychophysiological insomnia F51.04 Assessments Encounter Date Diagnosis (ICD Code) Assessment Notes Treatment Notes Treatment Clinical Notes Section Notes 01/09/2025 Psychophysiological insomnia (ICD-10 - F51.04) 01/09/2025 Generalized anxiety disorder (ICD-10 - F41.1) Patient with combination of anxiety and associated insomnia. We discussed trying medications for each of these at this time. Will also do behavioral health for therapy as we discussed combination of meds and therapy would best outcome for her. Will check labs at this time as well. Will plan to reevaluate follow-up. No current threat to self or others. 02/15/2025 Decreased thyroid stimulating hormone (TSH) level (ICD-10 - R79.89) 02/20/2025 Decreased thyroid stimulating hormone (TSH) level (ICD-10 - R79.89) 03/30/2025 Generalized anxiety disorder (ICD-10 - F41.1) 01/09/2025 Other Body Mass Index: Care Instructions material was published, Body Mass Index: Care Instructions material was printed Plan Of Treatment Pending Test Test Name Order Date US thyroid 02/20/2025 Next Appt Details Provider Name:Shad Lopez ez, 04/14/2025 04:45:00 PM, [address] [place], [address], Insurance Providers Payer Name Payer Address Payer Phone Subscriber Number Group Number Insured Name Patient Relationship to Insured Coverage Start Date Coverage End Date [employer] [place] Medicaid [address] [place] [address] [phone] [id number] BEATRIS MACK Self - patient is the insured 5 [facility] [address] [place] [address] [id number] BEATRIS MACK Self - patient is the insured 3 [employer] [address] [place] [address] [id number] BEATRIS MACK Self - patient is the insured 8 5 [employer] [place] Medicaid [address] [place] [phone] [id number] BEATRIS MACK Self - patient is the insured 4 [facility] [address] [place] [address] [id number] BEATRIS MACK Self - patient is the insured 4 Medical (General) History Medical History History ICD Code kidney stones anxiety Surgical History Surgery Date(Month/Year) tonsillectomy cystoscopy with stone removal and stent 06/17/18 lithotripsy 07/21/18 kidney stone removal 2023 Hospitalization History Reason Date(Month/Year) see surgical
--- OUTSIDE RECORDS SUMMARY | 2025-04-01 16:19 | XMS_ITS | Encounter Summary ---
Author Organization [facility] Address [address] [place] [address] Care Team Providers Care Assistant Office Manager Name Role Phone Ivy Corbin DIRECTOR OF THERAPY SERVICES Unavailable [phone] Encounter Details Date Type Department Care Team (Latest Contact Info) Description 03/21/2025 Travel Social History Tobacco Use Types Packs/Day Years [...] EDT Office Visit [facility] [address] [place] [address] Rowdy Castellano DPM [address] [facility] [address] [place] [address] 04/12/2025 1:15 PM EDT Office Visit [facility] [address] [facility] [address] [place] [address] Anuja Aguilera MD [address] [facility] [address] [place] [address] documented as of this encounter Visit Diagnoses Not on filedocumented in this encounter Care Teams Assistant Office Manager Relationship Specialty Start Date End Date Ivy Corbin NP [address] [place] [id number] [facility] 03/21/24 documented as of this encounter
[2025-04-01 16:20] VITALS: BP 130/92; PULSE 96; TEMP 37.3; BMI 28.2
--- OUTSIDE RECORDS SUMMARY | 2025-04-01 16:20 | XMS_ITS | Encounter Summary ---
Author Organization [facility] [employer] Address [address] [place] [address] Care Team Providers Care Edge Molder Name Role Phone Linda Bang MD Primary Care Provider Rashid ramos Encounter Details Date Type Department Care Team (Late st Contact Info) Description 07/12/2024 Orders Only [facility] Part of [address] [place] [address] Provider, MD Ion Social History Tobacco Use Types Packs/Day Years Used Date Smoking Tobacco: Passive Smo ke Exposure - Never Smoker Alcohol Use Standard Drinks/Week Comments Not Currently 0 (1 standard drink = 0.6 oz pur e alcohol) Interpersonal Safety Domain Source: IP Abuse Scr eening Answer Date Recorded Physical abuse Denies 07/14/2024 Verbal abuse Denies 07/14/2024 Emotional abuse Denies 07/14/2024 Financial abuse Denies 07/14/2024 Sexual abuse Denies 07/14/2024 Comments Unknown Sex and Gender Information Value Date Recorded Sex Assigned at Not on file Legal Sex Female 3:09 PM EDT Gender Identity Not on file Sexual Orientation Not on file documented as of this encounter Plan of Treatment Not on file documented as of this encounter Procedures Procedure Name Priority Date/Time Associated Diagnosis Comments URINALYSIS Routine 07/11/2024 4:46 PM EDT CBC WITH AUTO DIFFERENTIAL Routine 07/11/2024 4:44 PM EDT COMPREHENSIVE METABOLIC PANEL Routine 07/11/2024 4:41 PM EDT documented in this encounter Results * Urinalysis (07/11/2024 4:46 PM EDT) Urine Historical Provider URINE ORDERABLES Final Re sult * CBC with Auto Differential (07/11/2024 4:44 PM EDT) Blood BLOOD SPECIMEN / Unknown Result [facility] Historical Provider HEMATOLOGY ORDERABLES Fin al Result * Comprehensive Metabolic Panel (07/11/2024 4:41 PM EDT) Blood BLOOD SPECIMEN / Unknown Result [facility] Historical Provider CHEMISTRY ORDERABLES Huyen l Result documented in this encounter Visit Diagnoses Not on filedocumented in this encounter Care Teams Edge Molder Relationship Specialty Start Date End Date Drew-Linda Khanna MD PCP - General Family Medicine 05/19/16 documented as of this encounter
--- OUTSIDE RECORDS SUMMARY | 2025-04-01 16:20 | XMS_ITS | Encounter Summary ---
Author Organization [facility] Address [address] [place] [address] Care Team Providers Care Surface Logging Systems Logger Name Role Phone Ivy Corbin Mague SCALE ATTENDANT Unavailable [phone] Unallocated, Noms Provider MD Primary Care Provi ashley Encounter Details Date Type Department Care Team (Late st Contact Info) Description 03/30/2025 Telephone [facility] [address] [place] [address] Sara Sinha Social History Tobacco Use Types Packs/Day Years [...] on file documented as of this encounter Miscellaneous Notes * Telephone Encounter - Catherine Strong - 03/30/2025 1:11 PM EDT Let her know thank you. * Telephone Encounter - Rowdy Castellano DPM - 03/30/2025 1:07 PM EDT done * Telephone Encounter - Catherine Strong - 03/30/2025 12:58 PM EDT Patient called back and requested a prescription for the percocet. She has been icing and loosened the philippe bandage and is still in a lot of pain. [facility] [place]. * Telephone Encounter - Rowdy Castellano DPM - 03/30/2025 12:00 PM EDT Ice, elevate/ may take ibuprofen with medication and loosen Philippe wrap to loosen bandage. If no relief after this may consider possible Percocet or Percocet 10. Please advise if patient calls back * Telephone Encounter - Sara Sinha - 03/30/2025 10:18 AM EDT Patient called and said she is an intense amount of pain and medication is not helping. I did tell her that she can loosen the bandage some to relieve some pressure. Please advise. documented in this encounter Plan of Treatment Upcoming Encounters Date Type Department Care Team (Late st Contact Info) Description 04/05/2025 2:50 PM EDT Office Visit [facility] [address] [place] [address] Rowdy Castellano DPM [address] [facility] 5 [place] [address] 04/12/2025 1:15 PM EDT Office Visit [facility] [address] [facility] [address] [place] [address] Anuja Aguilera MD [address] [facility] [address] [place] [address] documented as of this encounter Visit Diagnoses Diagnosis Closed fracture of proximal end of right fibula, unspecified fracture morphology, initial encounter- Primary Closed fracture of proximal end of right fibula, unspecified fracture morphology, initial encounter- Primary documented in this encounter Care Teams Surface Logging Systems Logger Relationship Specialty Start Date End Date Ivy Corbin, SCALE ATTENDANT [address] [place] [address] PCP - [facility] 03/21/24 Unallocated, Noms Provider, [address] [place] [address] PCP - General Family Medicine 03/22/25 documented as of this encounter
--- OUTSIDE RECORDS SUMMARY | 2025-04-01 16:20 | XMS_ITS | Clinical Summary ---
Author Organization [facility] Address [address] [place] [address] Care Team Providers Care Car Designer Name Role Phone Unavailable Primary Care Provider Unavailabl e Social History Tobacco Use Types Packs/Day Years Used Date Smoking Tobacco: Never Assessed Comments Unknown Sex and Gender Information Value Date Recorded Sex Assigned at Not on file Legal Sex Female 2:15 PM EDT Gender Identity Not on file Sexual Orientation Not on file Plan of Treatment Health Maintenance Due Date Last Done Comments Peds To Adult Transition Initial Discussion 2012 Peds To Adult Transition Annual Assessment 2014 HPV Vaccine (1 - 3-dose series) 2015 Anxiety Screening 2018 Depression Screening 2018 HIV Screening 2018 Hepatitis C Screening 2018 DTaP,Tdap,Td Vaccine (1 - Tdap) 2019 Hepatitis B Vaccine (1 of 3 - 19+ 3-dose series) 06/23 Cervical Cancer Screening 2021 Covid-19 Vaccine ( - season) 2024 Influenza Vaccine (#1) 2025 Insurance Code71 ACCESS PPO
--- OUTSIDE RECORDS SUMMARY | 2025-04-01 16:20 | XMS_ITS | Patient Health Record ---
Author Organization Octavio Mariscal MD [facility]. Address [id number] [place] [address] Care Team Providers Care Feed Mill Operator Name Role Phone NO PCP, NO PCP Primary Care Provider Octavio Pack Unavailable [phone] Reason For Referral No Information Plan Of Treatment No Information Insurance Providers Payer Name Payer Address Payer Phone Subscriber Number Group Number Insured Name Patient Relationship to Insured Coverage Start Date Coverage End Date [employer] [address] [place] [address] [phone] [id number] CONSTANZA MACK Self - patient is the insured
--- OUTSIDE RECORDS SUMMARY | 2025-04-01 16:20 | XMS_ITS | Clinical Summary ---
Author Organization [facility] Healthcare Address [address] [place] [address] Care Team Providers Care Brush Filler Hand Name Role Phone Ivy Corbin INSPECTOR PACKER Unavailable [phone] Unallocated, Noms Provider MD Primary Care Provi ashley Allergies Active Allergy Reactions Criticality Noted Date Comments Penicillins Hives Low 05/23/2016 Medications Vit-Fe Fumarate-FA ( PO) Take by mouth Active hydrOXYzine HCl (Atarax) 25 MG tablet Take by mouth Active sertraline (Zoloft) 50 MG tablet Take by mouth Daily Active ferrous sulfate (Fe Tabs) 325 (65 Fe) MG EC tabletIndicatio ns:Anemia, unspecified type Take 1 tablet (325 mg) by mouth in the morning and 1 tablet (325 mg) at noon and 1 tablet (325 mg) in the evening. Take with meals. Do not crush, chew, or split. 90 tablet 11 5 02/24/20 26 Active oxyCODONE-aceta minophen (Percocet) 5-325 MG tabletIndicatio ns:Pain Take 1 tablet by mouth every 8 (eight) hours if needed for severe pain for up to 5 days 15 tablet 5 04/04/20 25 Active nitrofurantoin, macrocrystal-mo nohydrate, (Macrobid) 100 MG capsuleIndicati ons:Urinary tract infection without hematuria, site unspecified Take 1 capsule (100 mg) by mouth in the morning and 1 capsule (100 mg) before bedtime. Do all this for 7 days. 14 capsule 5 03/02/20 25 HYDROcodone-piero taminophen (Evans) 5-325 MG tabletIndicatio ns:Pain Take 1 tablet by mouth every 8 (eight) hours if needed for moderate pain (PRN pain) for up to 5 days 15 tablet 03/30/20 25 Discontinue d(Ineffecti ve) Active Problems No known active problems Encounters Date Type Department Care Team Description 03/30/2025 Telephone [facility] [address] [place] [id number] Sara Sinha 03/27/2025 11:10 AM EDT Office Visit [facility] POD [address] [place] [address] Rowdy Castellano DPM Closed fracture of proximal end of right fibula, unspecified fracture morphology, initial encounter (Primary Dx) 03/27/2025 Abstract [facility] [address] [place] [address] Rowdy Castellano DPM 03/27/2025 Bamboo flowsheet [facility] [address] [place] [address] Rowdy Castellano DPM 03/21/2025 1:15 PM EDT Ancillary Procedure [facility] [address] [place] [address] 03/21/2025 1:10 PM EDT Ancillary Procedure [facility] [address] [place] [address] 03/21/2025 1:00 PM EDT Office Visit [facility] [address] [place] [address] Rowdy Castellano DPM Closed fracture of proximal end of right fibula, unspecified fracture morphology, initial encounter (Primary Dx) 03/21/2025 Abstract [facility] [address] [place] [address] Rowdy Castellano DPM 03/21/2025 Telephone [facility] [address] [place] [address] Rowdy Castellano DPM Procedure 03/21/2025 Bamboo flowsheet [facility] [address] [place] [address] Rowdy Castellano DPM 03/21/2025 Travel 03/09/2025 12:30 PM EDT Ancillary Procedure [facility] OB [address] [place] [address] related condition in first trimester ([facility]); Vaginal bleeding affecting early ([facility]); Miscarriage ([facility]); Abnormal uterine bleeding (AUB) 03/09/2025 12:30 PM EDT Office Visit [facility] OB [address] [place] [address] Anuja Aguilera MD Vaginal bleeding affecting early ([facility]); Missed with demise before 20 completed weeks of gestation ([facility]); Vaginitis and vulvovaginitis 03/09/2025 Abstract [facility] [address] [place] [address] Rowdy Castellano DPM 03/09/2025 Travel 03/09/2025 Telephone [facility] OB [address] [place] [address] Anuja Aguilera MD 03/01/2025 Abstract [facility] OB [address] [place] [address] Anuja Aguilera MD 02/24/2025 Results Follow-Up [facility] OB [address] [place] [address] Zoraida Mercedes MA 02/23/2025 Orders Only [facility] OB [address] [place] [address] Anuja Aguilera MD Anemia, unspecified type (Primary Dx) 02/23/2025 Results Follow-Up [facility] OB [address] [place] [address] Anuja Aguilera MD 02/23/2025 External Result Encounter [facility] External Department Unsolicited Anuja Aguilera MD 02/22/2025 8:30 AM EDT Initial [facility] OB [address] [place] [address] [place]: 4w4d 02/22/2025 External Result Encounter [facility] External Department Unsolicited Anuja Aguilera MD 02/22/2025 External Result Encounter [facility] External Department Unsolicited Anuja Aguilera MD 02/22/2025 External Result Encounter [facility] External Department Unsolicited Anuja Aguilera MD 02/22/2025 External Result Encounter [facility] External Department Unsolicited Anuja Aguilera MD 02/22/2025 External Result Encounter [facility] External Department Unsolicited Anuja Aguilera MD 02/22/2025 External Result Encounter [facility] External Department Unsolicited Anuja Aguilera MD 02/22/2025 Telephone [facility] [address] [facility] [address] [place] [address] Nhi Castro RN 02/22/2025 Travel 02/20/2025 Telephone [facility] [address] [facility] [address] [place] [address] Anuja Aguilera MD from Last 3 Months Family History Medical History Relation Name Comments No Known Problems Brother Autism Daughter Diabetes Father Heart attack Father kidney stones Father Cancer Maternal Grandfather No Known Problems Maternal Grandmother kidney stones Mother Heart attack Paternal Grandfather Breast cancer Paternal Grandmother No Known Problems Sister Relation Name Status Comments Brother x5 Daughter x1 Father Alive Maternal Grandfather Maternal Grandmother Mother Alive Paternal Grandfather Paternal Grandmother Alive Sister x1 Social History Tobacco Use Types Packs/Day Years [...] file Not on file Not on file Last Filed Vital Signs Vital Sign Reading Time Taken Comments Blood Pressure 114/72 03/09/2025 1:01 PM EDT Pulse 85 10/16/2023 4:54 PM EST Temperature 36.6 C (97.8 F) 10/16/2023 4:54 PM EST Respiratory Rate 18 03/27/2025 11:07 AM EDT Oxygen Saturation 98% 10/16/2023 4:54 PM EST Inhaled Oxygen Concentration - - Weight 79.4 kg (175 lb) 03/27/2025 11:07 AM EDT Height 170.2 cm (5' 7 ) 03/27/2025 11:07 AM EDT Body Mass Index 27.41 03/27/2025 11:07 AM EDT Plan of Treatment Upcoming Encounters Date Type Department Care Team (Late st Contact Info) Description 04/05/2025 2:50 PM EDT Office Visit [facility] [address] [place] [address] Rowdy Castellano DPM [address] [facility] [address] [place] [address] 04/12/2025 1:15 PM EDT Office Visit [facility] OB [address] [facility] [address] [place] [address] Anuja Aguilera MD [address] [facility] [address] [place] [address] Health Maintenance Due Date Last Done Comments Influenza Vaccine (#1) 2025 Procedures Procedure Name Priority Date/Time Associated Diagnosis Comments HCG, TOTAL, QN Routine 03/21/2025 2:12 PM EDT examination or test, positive result ([facility]) Vaginal bleeding affecting early ([facility]) XR ANKLE 3+ VIEWS RIGHT Routine 03/21/2025 1:08 PM EDT Closed fracture of proximal end of right fibula, unspecified fracture morphology, initial encounter XR FOOT 1-2 VIEWS RIGHT Routine 03/21/2025 1:08 PM EDT Closed fracture of proximal end of right fibula, unspecified fracture morphology, initial encounter US PELVIS TRANSVAGINAL Routine 03/09/2025 12:56 PM EDT Miscarriage ([facility]) Abnormal uterine bleeding (AUB) RPR (DX) W/REFL TITER AND CONFIRMATORY TESTING Routine 02/24/2025 7:27 AM EDT care, subsequent in first trimester ([facility]) HYPERCOAG PANEL INTERP Routine 02/24/2025 7:26 AM EDT care, subsequent in first trimester ([facility]) HEPATITIS C ANTIBODY Routine 02/24/2025 7:26 AM EDT care, subsequent in first trimester ([facility]) HCG, TOTAL, QN Routine 02/23/2025 12:48 PM EDT URINALYSIS, COMPLETE Routine 02/23/2025 8:31 AM EDT care, subsequent in first trimester ([facility]) BLOOD TYPE AND SCREEN GEL Routine 02/23/2025 8:28 AM EDT care, subsequent in first trimester ([facility]) MISC LAB Routine 02/22/2025 2:20 PM EDT RUBEOLA (MEASLES) ABS, IGG Routine 02/22/2025 2:20 PM EDT HEPATITIS B SURFACE ANTIGEN ([facility]) Routine 02/22/2025 2:20 PM EDT HCV ANTIBODY RFX TO QUANT PCR Routine 02/22/2025 2:20 PM EDT RPR W/RFX TO QUANT & TP ABS ([facility]) Routine 02/22/2025 2:20 PM EDT HIV-1 AND HIV-2 ANTIBODIES Routine 02/22/2025 2:20 PM EDT URINALYSIS REFLEX Routine 02/22/2025 2:2 0 PM EDT CBC WITH AUTO DIFFERENTIAL Routine 02/22/2025 2:20 PM EDT CULTURE, URINE, ROUTINE Routine 02/22/2025 2:20 PM EDT from Last 3 Months Results * hCG, quantitative, (03/21/2025 2:12 PM EDT) Only the most recent of2 resultswithin the time period is included. HCG,QUANTITATIV E 22.13 m[iU]/mL 03/21/2025 4:07 PM EDT [facility] Comment: Approximate Approximate hCG Gestational Age Range (mIU/ml) (weeks) 0.2-1 5-50 1-2 50-500 2-3 100-5,000 3-4 500-10,000 4-5 1,000-50,000 5-6 10,000-100,000 6-8 15,000-200,000 8-12 10,000-100,000 Other Topography unknown / Unknown 03/21/2025 2:12 PM EDT 03/21/2025 2:12 PM EDT Anuja Aguilera MD LAB BLOOD ORDERABLES Final Res ult Performing Organization Address City/State/[facility] Co de Phone Number [facility] [address] [place] [address], [facility] [address] [place] [address] * XR foot 1 or 2 views right (03/21/2025 1:08 PM EDT) Anatomical Region Laterality Modality Lower Extremities, Foot Right Radiogra phic Imaging Narrative 03/21/2025 1:09 PM EDT Imaging Result: Negative fractures identified normal foot morphology Rowdy Castellano DPBrayan IMG XR PROCEDURES Final Res ult * XR ankle 3+ views right (03/21/2025 1:08 PM EDT) Anatomical Region Laterality Modality Lower Extremities, Ankle Right Radiogr aphic Imaging Narrative 03/21/2025 1:09 PM EDT Imaging Result: Right distal fibular oblique fracture with slight posterior displacement and slight shortening Rowdy Castellano DPM IMG XR PROCEDURES Final Res ult * US pelvis transvaginal (03/09/2025 12:56 PM EDT) Anatomical Region Laterality Modality Pelvis Ultrasound Study [place] Study Date Study MARLEE Working MARLEE (Source) 03/09/2025 Result Tex Aguilera MD IMG US PROCEDURES Final Result * Rpr (dx) w/refl titer and confirmatory testing (02/24/2025 7:27 AM EDT) Blood Venous blood specimen / Unknown Result Tex Aguilera MD LAB BLOOD ORDERABLES Final Res ult Performing Organization Address [facility] Phone Number [facility] * Hepatitis C antibody (02/24/2025 7:26 AM EDT) Blood Venous blood specimen / Unknown Result Tex Aguilera MD LAB BLOOD ORDERABLES Final Res ult Performing Organization Address [facility] de Phone Number [facility] * HIV-2 antigen (02/24/2025 7:26 AM EDT) Blood Venous blood specimen / Unknown Result Tex Aguilera MD LAB BLOOD ORDERABLES Final Res ult Performing Organization Address [facility] de Phone Number [facility] * Urinalysis with microscopic (02/23/2025 8:31 AM EDT) Urine Urine specimen obtained by clean catch procedure / Unknown Result Tex Aguilera MD LAB URINE ORDERABLES Final Res ult Performing Organization Address [facility] de Phone Number [facility] * Type and screen (02/23/2025 8:28 AM EDT) Blood Venous blood specimen / Unknown Anuja Aguilera MD LAB BLOOD ORDERABLES Final Res ult Performing Organization Address [facility] Co de Phone Number [facility] * RUBEOLA (MEASLES) ABS, IGG (02/22/2025 2:20 PM EDT) RUBEOLA (MEASLES) ABS, IGG 201.0 Immune >16.4 02/24/2025 6:08 AM EDT [facility] Comment: Negative <13.5 Equivocal 13.5 - 16.4 Positive >16.4 Presence of antibodies to Rubeola is presumptive evidence of immunity except when acute infection is suspected. Performed at: - [facility] [address] [id number] Pet Caregiver: Shai Marmolejo PhD, Phone: [phone] Other Topography unknown / Unknown 02/22/2025 2:20 PM EDT 02/22/2025 2:20 PM EDT [facility] - 02/24/2025 6:08 AM EDT FASTING.AleciaKW Anuja Aguilera MD LAB BLOOD ORDERABLES Final Res ult Performing Organization Address [facility] de Phone Number [address] [address], * [facility] (02/22/2025 2:20 PM EDT) [facility] 02/28/2025 8:55 AM EDT [facility] Comment:See report. Scanned copy available in EMR. Other Topography unknown / Unknown 02/22/2025 2:20 PM EDT 02/22/2025 2:20 PM EDT [facility] - 02/28/2025 8:55 AM EDT FASTING.CHERYL [facility] Test Name: DRUG SCREEN 17 W/CONF TEST#[id number] Anuja Aguilera MD LAB BLOOD ORDERABLES Final Res ult Performing Organization Address City/[facility] Co de Phone Number [address] [address], [facility] [address] [place] [address] * RPR W/RFX TO QUANT & TP ABS ([facility]) (02/22/2025 2:20 PM EDT) Pathologist [facility] RPR, RFX QUANT RPR Non Reactive Non Reactive 02/24/2025 4:36 AM EDT [facility] Other Topography unknown / Unknown 02/22/2025 2:20 PM EDT 02/22/2025 2:20 PM EDT [facility] - 02/24/2025 6:08 AM EDT FASTING.JKW Anuja Aguilera MD LAB BLOOD ORDERABLES Final Res ult Performing Organization Address City/[facility]/ZIP Co de Phone Number [address] [address], [place] * HEPATITIS B SURFACE ANTIGEN ([facility]) (02/22/2025 2:20 PM EDT) [facility] HBSAG SCREEN Negative Negative 02/24/2025 4:36 AM EDT [facility] Comment: Performed at: [address] [id number] Pet Caregiver: Shai Marmolejo PhD, Phone: [phone] Other Topography unknown / Unknown 02/22/2025 2:20 PM EDT 02/22/2025 2:20 PM EDT [facility] - 02/24/2025 4:36 AM EDT FASTING.JKW Anuja Aguilera MD LAB BLOOD ORDERABLES Final Res ult [place] [id number], [place] * Hcv antibody rfx to quant pcr (02/22/2025 2:20 PM EDT) [facility] HEPATITIS C VIRUS ANTIBODY Non Reactive Non Reactive 02/24/2025 4:36 AM EDT [facility] INTERPRETATION HEPATITIS C Comment . 02/24/2025 4:36 AM EDT [facility] Comment: Not infected with HCV unless early or acute infection is suspected (which may be delayed in an immunocompromised individual), or other evidence exists to indicate HCV infection. Other Topography unknown / Unknown 02/22/2025 2:20 PM EDT 02/22/2025 2:20 PM EDT Narrative [facility] - 02/24/2025 4:36 AM EDT FASTING.JKW us Anuja Aguilera MD LAB BLOOD ORDERABLES Final Res ult [facility] [address] [place] [address], [place] * CBC auto differential (02/22/2025 2:20 PM EDT) WBC 6.4 3.8 - 11.6 10*3/uL 02/22/2025 3:48 PM EDT [facility] UNCORRECTED WHITE BLOOD COUNT 6.4 3.8 - 11.6 10*3/uL 02/22/2025 3:48 PM EDT [facility] RBC 4.06 3.60 - 5.00 10*6/uL 02/22/2025 3:48 PM EDT [facility] HEMOGLOBIN 11.9 11.8 - 15.4 g/dL 02/22/2025 3:48 PM EDT [facility] HEMATOCRIT 35.9 34.0 - 46.4 % 02/22/2025 3:48 PM EDT [facility] MCV 88.5 80 - 100 fL 02/22/2025 3:48 PM EDT [facility] MCH 29.3 24.7 - 34.3 pg 02/22/2025 3:48 PM EDT [facility] MCHC 33.1 32.0 - 35.0 g/dL 02/22/2025 3:48 PM EDT [facility] RED CELL DISTRIBUTION WIDTH, RDW 15.2 11.9 - 15.3 % 02/22/2025 3:48 PM EDT [facility] PLATELET COUNT 308 150 - 450 10*3/uL 02/22/2025 3:48 PM EDT [facility] MEAN PLATELET VOLUME, MPV 9.1 6.3 - 10.7 fL 02/22/2025 3:48 PM EDT [facility] NEUTROPHILS, % 55.1 . % 02/22/2025 3:48 PM EDT [facility] LYMPHOCYTES, % 34.9 . % 02/22/2025 3:48 PM EDT [facility] MONOCYTE/MACROPHA GE, % 8.8 . % 02/22/2025 3:48 PM EDT [facility] EOSINOPHILS, % 0.4 . % 02/22/2025 3:48 PM EDT [facility] BASOPHILS, % 0.8 . % 02/22/2025 3:48 PM EDT [facility] NRBC 0.1 0 - 0.5 /100{WBC} 02/22/2025 3:48 PM EDT [facility] NEUTROPHILS 3.5 1.8 - 7.7 10*3/uL 02/22/2025 3:48 PM EDT [facility] LYMPHOCYTES 2.2 1.00 - 4.8 10*3/uL 02/22/2025 3:48 PM EDT [facility] MONOCYTES 0.6 0.0 - 0.8 10*3/uL 02/22/2025 3:48 PM EDT [facility] EOSINOPHILS 0.0 0.0 - 0.45 10*3/uL 02/22/2025 3:48 PM EDT [facility] BASOPHILS 0.0 0.0 - 0.2 10*3/uL 02/22/2025 3:48 PM EDT [facility] Blood (Blood) 02/22/2025 2:2 0 PM EDT 02/22/2025 2:20 PM EDT Narrative [facility] - 02/22/2025 3:48 PM EDT FASTING.JKW us Anuja Aguilera MD LAB BLOOD ORDERABLES Final Res ult [facility] [address] [place] [address], [facility] [address] [place] [address] * HIV-1 and HIV-2 antibodies (02/22/2025 2:20 PM EDT) HIV SCREEN 4TH GENERATION Non Reactive Non Reactive 02/24/2025 4:36 AM EDT [facility] Comment: HIV-1/HIV-2 antibodies and HIV-1 p24 antigen were NOT detected. There is no laboratory evidence of HIV infection. HIV Negative Performed at: - [facility] [address] [id number] Pet Caregiver: Shai Marmolejo PhD, Phone: [phone] Other Topography unknown / Unknown 02/22/2025 2:20 PM EDT 02/22/2025 2:20 PM EDT [facility] - 02/24/2025 6:08 AM EDT FASTING.JKW us Anuja Aguilera MD LAB BLOOD ORDERABLES Final Res ult [facility] [address] [place] [address], [place] * (ABNORMAL) Urinalysis with reflex microscopic (02/22/2025 2:20 PM EDT) COLOR,URINE Yellow Yellow 02/22/2025 5:18 PM EDT [facility] APPEARANCE,URI NE Clear Clear 02/22/2025 5:18 PM [facility] SPECIFICY GRAVITY,URINE >1.030(H) 1.001 - 1.030 02/22/2025 5:[address] [facility] PH,URINE 5.5 5.0 - 9.0 02/22/2025 5:18 PM EDT [facility] LEUKOCYTE ESTERASE,URINE 1+(H) Negative 02/22/2025 5:19 PM EDT [facility] NITRITE,URINE Negative Negative [facility] 10(H) Negative mg/dL 02/22[facility]2025 5:[facility] GLUCOSE,URINE (UA) Normal Normal 02/22/2025 5:[facility] KETONES,URINE 2+(H) Negative 02/22/2025 5:19 PM EDT [facility] UROBILINOGEN,U RINE Normal Normal 02/22/2025 5:19 PM EDT [facility] BILIRUBIN,URIN E Negative Negative 02/22/2025 5:19 PM EDT [facility] OCCULT BLOOD,URINE 2+(H) Negative 02/22/2025 5:19 PM EDT [facility] RBC,URINE 1-2 0 - 4 [HPF] 02/22/2025 5:24 PM EDT [facility] WBC,URINE 5-9(H) 0 - 4 [HPF] 02/22/2025 5:24 PM EDT [facility] SQUAMOUS EPITHELIAL CELL,URINE 5-9(H) 0 - 2 [HPF] 02/22/2025 5:24 PM EDT [facility] BACTERIA,URINE None Seen None Seen 02/22/2025 5:24 PM EDT [facility] HYALINE CASTS,URINE None 0 - 8 02/22/2025 5:24 PM EDT [facility] MUCUS,URINE 2+(AA) 02/22/2025 5:24 PM EDT [facility] Other 02/22/2025 2:20 PM EDT 02/22/2025 2:20 PM EDT Narrative [facility] - 02/22/2025 5:24 PM EDT FASTING.JKW Name Collection Type:: Clean-Voided Midstream us Anuja Aguilera MD LAB URINE ORDERABLES Final Res ult Performing Organization Address City/State/[facility] Co de Phone Number [facility] [address] [place] [address], [facility] [address] [place] [address] * Urine culture (02/22/2025 2:20 PM EDT) [facility] ORGANISM Strep agalactiae - (group b) 02/23/2025 4:10 PM EDT [facility] COLONY COUNT 30,000 02/23/2025 4:[facility] Urine Urine specimen obtained by clean catch procedure / Unknown 02/22/2025 2:20 PM EDT 02/22/2025 2:20 PM EDT Comment:Clean-Voided Midstre am Narrative [facility] - 02/24/2025 12:03 PM EDT FASTING.JKW Anuja Aguilera MD LAB MICROBIOLOGY - GENERAL ORD ERABLES Final Result [facility] [address] [place] [address], [facility] [address] [facility] [place] [address] from Last 3 Months Insurance [employer] Care Teams Brush Filler Hand Relationship Specialty Start Date End Date Ivy Corbin, INSPECTOR PACKER [address] [place] [address] PCP - [facility] 03/21/24 Unallocated, Noms Provider, [address] [place] [address] PCP - General Family Medicine 03/22/25
--- OUTSIDE RECORDS SUMMARY | 2025-04-01 16:20 | XMS_ITS | Encounter Summary ---
Author Organization [facility] Address [address] [place] [address] Care Team Providers Care Model Maker Name Role Phone Ivy Corbin OUTSOLE SPLICER Unavailable [phone] Unallocated, Noms Provider Primary Care Provi ashley Reason for Visit * Reason Onset Date Comments Procedure 03/21/2025 Encounter Details Date Type Department Care Team ([facility] st Contact Info) Description 03/21/2025 Telephone [facility] [address] [facility] 120 [place] [address] Rowdy Castellano DPM 3006 [facility] 5 [place] [address] Procedure Social History Tobacco Use Types Packs/Day Years [...] encounter Miscellaneous Notes * Telephone Encounter - Sara Sinha - 03/27/2025 2:07 PM EDT Office notes and consents uploaded to [facility]IS portal * Telephone Encounter - Rowdy Castellano DPM - 03/21/2025 3:28 PM EDT Ok, thanks * Telephone Encounter - Sara Sinha - 03/21/2025 3:16 PM EDT I was unable to get patient into [facility] before next Thursday. I made her a pre op appointment with you on Thursday for consents and to clear her. * Telephone Encounter - Sara Sinha - 03/21/2025 3:14 PM EDT CASE IS SCHEDULED FOR 7-9 Per call with [facility]dick @[phone] with Kiki, policy is active and [facility] and [employer] are in network. Patient has no deductibles and codes 77963 and 30469 do not require prior authorization. Reference#: [id number] No PST needed due to no PMH Surgery scheduled on both portals. Demographics, insurance card, sx form, sx appt sheet, and officenotes uploaded to SIS portal. Patient aware of surgery date. * Telephone Encounter - Rowdy Castellano DPM - 03/21/2025 1:21 PM EDT HOSPITAL--[facility] DATE-- MALINA PCP: [facility]/ if unable to do in a timely manner I may need to clear her myself DIAGNOSIS WITH PROCEDURES 1) right distal fibular fracture with ORIF right distal fibula with posterior splint S82.831A/ [id number] Approximate case length:one hour SPECIAL NEEDS FOR CASE-- : 1/3 tubular plate/ arthrex PT CRUTCH OR WALKER TRAINING NEEDED? NO WEIGHT BEARING STATUS-- nonweightbearing hydrocodone documented in this encounter Plan of Treatment Upcoming Encounters Date Type Department Care Team (Late st Contact Info) Description 04/05/2025 2:50 PM EDT Office Visit [facility] [address] [place] [address] Rowdy Castellano DPM [address] [facility] [address] [place] [address] 04/12/2025 1:15 PM EDT Office Visit [facility] [address] [place] [address] Anuja Aguilera MD [address] [place] [address] documented as of this encounter Visit Diagnoses Not on filedocumented in this encounter Care Teams Model Maker Relationship Specialty Start Date End Date Ivy Corbin, OUTSOLE SPLICER [address] [facility] [address] [place] [address] PCP - [facility] 03/21/24 Unallocated, Noms MD Bianca [address] [place] [address] PCP - General Family Medicine 03/22/25 documented as of this encounter
--- OUTSIDE RECORDS SUMMARY | 2025-04-01 16:20 | XMS_ITS | Encounter Summary ---
Author Organization [facility] Address [address] [place] [address] Care Team Providers Care Can Cleaner Name Role Phone Ivy Corbin JUNIOR ACCOUNT MANAGER Unavailable Unallocated, Noms Provider Primary Care Provi ashley Encounter Details Date Type Department Care Team (Late Contact Info) Description 03/27/2025 Bamboo flowsheet [facility] [address] [place] [address] Rowdy Castellano DPM [address] [address] Social History Tobacco Use Types Packs/Day Years [...] EDT Office Visit [facility] [address] [place] [address] Rowdy Castellano DPM [address] [address] 04/12/2025 1:15 PM EDT Office Visit [facility] [address] [facility] [address] [place] [address] Anuja Aguilera MD [address] [facility] [address] [place] [address] documented as of this encounter Visit Diagnoses Not on filedocumented in this encounter Care Teams Can Cleaner Relationship Specialty Start Date End Date Ivy Corbin, JUNIOR ACCOUNT MANAGER [address] [facility] [address] [place] [address] PCP - [facility] 03/21/24 Unallocated, Noms MD Bianca [address] [place] [address] PCP - General Family Medicine 03/22/25 documented as of this encounter
--- OUTSIDE RECORDS SUMMARY | 2025-04-01 16:20 | XMS_ITS | Encounter Summary ---
Author Organization [facility] Address [address] [place] [address] Care Team Providers Care Crane Follower Name Role Phone Ivy Corbin EDGING MACHINE OPERATOR Unavailable [phone] Encounter Details Date Type Department Care Team (Late Contact Info) Description 03/21/2025 Bamboo flowsheet [facility] [address] [place] [address] Rowdy Castellano DPM [address] [address] Social History Tobacco Use Types Packs/Day [...] Encounters Date Type Department Care Team (Late Contact Info) Description 04/05/2025 2:50 PM EDT Office Visit [facility] [address] [place] [address] Rowdy Castellano DPM [address] [address] 04/12/2025 1:15 PM EDT Office Visit [facility] [address] [facility] [address] [place] [address] Anuja Aguilera MD [address] [facility] [address] [place] [address] documented as of this encounter Visit Diagnoses Not on filedocumented in this encounter Care Teams Crane Follower Relationship Specialty Start Date End Date Ivy Corbin NP [address] [facility] [address] [place] [address] PCP - [facility] 03/21/24 documented as of this encounter
--- OUTSIDE RECORDS SUMMARY | 2025-04-01 16:20 | XMS_ITS | Clinical Summary ---
Author Organization [employer] [facility] Address [id number] [address] [id number] Care Team Providers Care Fourth Hand Name Role Phone Pcp, Not In System Primary Care Provider Unavail able Allergies Active Allergy Reactions Criticality Noted Date Comments Penicillins Hives Low 05/23/2016 Medications No known medications Social History Tobacco Use Types Packs/Day Years Used Date Smoking Tobacco: Never Smokeless Tobacco: Never Comments No Sex and Gender Information Value Date Recorded Sex Assigned at Not on file Legal Sex Female 11:25 AM EDT Gender Identity Not on file Sexual Orientation Not on file Last Filed Vital Signs Vital Sign Reading Time Taken Comments Blood Pressure 128/87 03/13/2021 11:38 AM EDT Pulse 92 03/13/2021 11:38 AM EDT Temperature 36.8 C (98.2 F) 03/13/2021 11:38 AM EDT Respiratory Rate 20 03/13/2021 11:38 AM EDT Oxygen Saturation 97% 03/13/2021 11:38 AM EDT Inhaled Oxygen Concentration - - Weight 77.1 kg (170 lb) 03/13/2021 11:38 AM EDT Height 170.2 cm (5' 7 ) 03/13/2021 11:38 AM EDT Body Mass Index 26.63 03/13/2021 11:38 AM EDT Plan of Treatment Not on file Medical Devices Not on file Insurance [employer] Care Teams Fourth Hand Relationship Specialty Start Date End Date Pcp, Not In System [place] [address] PCP - General Family Medicine 03/13/21
--- OUTSIDE RECORDS SUMMARY | 2025-04-01 16:20 | XMS_ITS | Encounter Summary ---
Author Organization [facility] Address [address] [place] [address] Care Team Providers Care Shape Carver Name Role Phone Ivy Corbin DOLLY DRIVER Unavailable [phone] Unallocated, Noms Provider Primary Care Provi ashley Encounter Details Date Type Department Care Team (Late Contact Info) Description 03/21/2025 Abstract [facility] [address] [place] [address] Rowdy Castellano DPM [address] [address] Social History Tobacco Use Types Packs/Day Years [...] EDT Office Visit [facility] [address] [place] [address] Rowdy Castellano DPM [address] [address] 04/12/2025 1:15 PM EDT Office Visit [facility] [address] [place] [address] Anuja Aguilera MD [address] [facility] [address] [place] [address] documented as of this encounter Visit Diagnoses Not on filedocumented in this encounter Care Teams Shape Carver Relationship Specialty Start Date End Date Ivy Corbin, DOLLY DRIVER [address] [facility] [address] [place] [address] PCP - [facility] 03/21/24 Unallocated, Noms Provider, [address] [place] [address] PCP - General Family Medicine 03/22/25 documented as of this encounter
--- OUTSIDE RECORDS SUMMARY | 2025-04-01 16:20 | XMS_ITS | Clinical Summary ---
Author Organization [employer] [facility] Address [address] [place] [address] Care Team Providers Care Medical Videographer Name Role Phone Linda Bang MD Primary Care Provider Rashid ramos Allergies Active Allergy Reactions Criticality Noted Date Comments Penicillins Hives 05/23/2016 Medications ibuprofen (ADVIL) 200 MG tablet Take 2 tablets by mouth every 8 hours as needed for Pain (dysuria, abdominal pain) 120 tablet 3 05/23/20 16 Active Additional Information Patient not taking.Reported on 07/18/2024 ketorolac (TORADOL) 10 MG tabletIndications: Renal calculus,Ureteral calculus,Renal colic on right side Take 1 tablet by mouth every 6 hours as needed for Pain 20 tablet 07/12/20 24 025 Active Additional Information Patient not taking.Reported on 07/18/2024 oxyCODONE-acetamin ophen (PERCOCET) 5-325 MG per tablet Take 1 tablet by mouth every 6 hours as needed for Pain. 07/11/20 24 Active ondansetron (ZOFRAN-ODT) 4 MG disintegrating tablet Take 1 tablet by mouth every 8 hours as needed for Nausea 07/11/20 24 Active Active Problems Problem Noted Date Diagnosed Date Ureteral calculus 07/14/2024 Slow transit constipation 06/20/2016 Acute cystitis without hematuria 05/23/2016 Dysuria 05/23/2016 Family History Medical History Relation Name Comments Kidney stones Father Kidney stones Mother Relation Name Status Comments Father Mother Social History Tobacco Use Types Packs/Day Years Used Date Smoking Tobacco: Never Passive Smoke Exposure: Yes Smokeless Tobacco: Current Alcohol Use Standard Drinks/Week Comments Yes 0 (1 standard drink = 0.6 oz pur e alcohol) occasionally Interpersonal Safety Domain Source: IP Abuse Scr [...] Sign Reading Time Taken Comments Blood Pressure 124/62 07/18/2024 2:26 PM EDT Pulse 68 07/14/2024 11:45 AM EDT Temperature 36.9 C (98.4 F) 07/18/2024 2:26 PM EDT Respiratory Rate 16 07/14/2024 11:45 AM EDT Oxygen Saturation 100% 07/14/2024 11:45 AM EDT Inhaled Oxygen Concentration - - Weight 81.6 kg (180 lb) 07/18/2024 2:26 PM EDT Height 170.2 cm (5' 7 ) 07/18/2024 2:26 PM EDT Body Mass Index 28.19 07/18/2024 2:26 PM EDT Plan of Treatment Health Maintenance Due Date Last Done Comments Depression Screen 2012 Hepatitis A vaccine (2 of 2 - 2-dose series) 12/29/2013 06/30/2013 HIV screen 2015 Chlamydia/GC screen 2016 Hepatitis C screen 2018 Pap smear 2021 COVID-19 Vaccine ( season) 2024 Flu vaccine (#1) 04/21/2025 09/06/2009 DTaP/Tdap/Td vaccine (7 - Td or Tdap) 04/28/2030 04/28/2020, 06/30/2013, 12/24/2005, Additional history exists Hepatitis B vaccine Completed 04/28/2003, 2000, 2000 Hib vaccine Completed 04/28/2003, 2000 Pneumococcal 0-49 years Vaccine Aged Out 04/28/2003 No longer eligible based on patient's age to complete this topic Polio vaccine Completed 12/24/2005, 01/19, 04/28/2003, Additional history exists Meningococcal (ACWY) vaccine Aged Out 06/30/2013 No longer eligible based on patient's age to complete this topic Varicella vaccine Completed 06/30/2013, 04/28/2003 HPV vaccine Completed 09/23/2022, 06/30/2013 Meningococcal B vaccine Aged Out No l onger eligible based on patient's age to complete this topic Medical Devices Implanted Type Area Catering Driver Device Identifier Shelf Expiration Date Model / Serial / Lot Stent Uret 6fr L26cm Hydr+ Pgtl Tapr Tip Grad Bldr Mrk Lo - [id number] Implanted:Qty: 1 on 07/14/2024 by Hermes Styles MD at [facility] Right: [employer] [id number] / / [id number] Insurance [employer] Advance Directives * Full Code (Latest Code Status on File) Date Activated Date Inactivated Comments 07/14/2024 8:27 AM 07/14/2024 2:17 PM Care Teams Medical Videographer Relationship Specialty Start Date End Date Linda Bang MD PCP - General Family Medicine 05/19/16
--- OUTSIDE RECORDS SUMMARY | 2025-04-01 16:20 | XMS_ITS | Encounter Summary ---
Author Organization [facility] Address [address] [place] [address] Care Team Providers Care Health And Fitness Professor Name Role Phone Ivy Corbin LABORER MINE Unavailable Unallocated, Noms Provider Primary Care Provi ashley Encounter Details Date Type Department Care Team (Late Contact Info) Description 03/27/2025 Abstract [facility] [address] [place] [address] Rowdy Castellano DPM [address] [address] Social History Tobacco Use Types Packs/Day Years [...] EDT Office Visit [facility] [address] [place] [address] Rowdy Castellano DPM [address] [address] 04/12/2025 1:15 PM EDT Office Visit [facility] [address] [place] [address] Anuja Aguilera MD [address] [facility] [address] [place] [address] documented as of this encounter Visit Diagnoses Not on filedocumented in this encounter Care Teams Health And Fitness Professor Relationship Specialty Start Date End Date Ivy Corbin, LABORER MINE [address] [facility] [address] [place] [address] PCP - [facility] 03/21/24 Unallocated, Noms Provider, [address] [place] [address] PCP - General Family Medicine 03/22/25 documented as of this encounter
--- NOTE | 2025-04-01 16:32 | CT_ITS ---
The [address] [address] Patient Name: CONSTANZA MACK MRN: [id number] date: 2000 Sex: F Assigned Patient Location: ED.MAIN Current Patient Location: ED.MAIN Accession/Order Number: [id number] Exam Date: 04/01/2025 17:45 Report Date: 04/01/2025 17:53 At the request of: AIXA FRIED MD Procedure: CT abdomen pelvis wo con CT abdomen pelvis wo con 04/01/2025 5:30 PM SIGNS AND SYMPTOMS: Bilateral flank pain, hematuria, kidney stone TECHNIQUE: Multidetector ct axial images of the abdomen and pelvis were obtained without IV contrast. Multiplanar reformats were performed and reviewed to further define anatomy and possible pathology. CT was performed with one or more of the following dose reduction techniques: Automated exposure control, adjustment of the mA and/or kV according to patient size, or use of iterative reconstruction technique. COMPARISON: None. FINDINGS: Lower Chest: Within normal limits. ABDOMEN: Liver: Within normal limits. Bile Ducts: Normal caliber. Gallbladder: No calcified gallstones. Normal caliber wall. Pancreas: Within normal limits. Spleen: Within normal limits. Adrenals: Within normal limits. Kidneys: Bilateral renal stones are present measuring up to 5 mm in greatest dimension on the left and 6 mm in greatest dimension on the right. No hydronephrosis. Pelvis: Reproductive Organs: No pelvic masses. Ureters: Fat stranding surrounds the ureters bilaterally suggesting presence of an ascending urinary tract infection. Bladder: There is mild bladder wall thickening possibly relating to cystitis. Bowel: There is a normal appendix in the right lower quadrant. Mesenteric Lymph Nodes: No enlarged mesenteric lymph nodes. Peritoneum: No ascites or free air, no fluid collection. Vessels: within normal limits Retroperitoneum: Within normal limits. Abdominal Wall: Within normal limits. Bones: Within normal limits. CT/CT abdomen pelvis wo con IMPRESSION: Fat stranding surrounds the ureters bilaterally suggesting presence of an ascending urinary tract infection. No obstructive uropathy. Bilateral nonobstructing renal stones are redemonstrated. There is a normal appendix in the right lower quadrant. Impression dictated by: Ruiz Knox M.D. 04/01/2025 5:53 PM Dictation Location: [place] [address] Electronically authenticated by: [id number] Y Date: 04/01/2025 17:53
[2025-04-01] MEDS: KETOROLAC TROMETHAMINE 30 MG/ML VIAL 15 MG IVP ×2 (16:59→21:11)
[2025-04-01 17:09] LABS: Hematocrit 38.1 % (36.0-48.0); Hemoglobin 12.6 g/dL (12.0-16.0); Immature Granulocytes Abs Auto 0.11 10^3/uL (0.00-0.03); Immature Granulocytes Pct Auto 0.7 % (0.0-0.5); Lymphocytes Absolute Auto 1.1 10^3/uL (1.2-3.8); Mean Corpuscular HGB Conc 33.1 g/dL (29.9-35.2); Mean Corpuscular Hemoglobin 29.9 pg (26.7-34.0); Mean Corpuscular Volume 90.5 fL (81.0-99.0); Platelet Count 301 10^3/uL (150-450); Red Blood Count 4.21 10^6/uL (4.20-5.40); White Blood Count 16.6 10^3/uL (4.0-11.0)
[2025-04-01 17:13] LABS: Glucose Urine UA NEGATIVE (NEGATIVE)
[2025-04-01 17:24] LABS: Cast Seen? NONE SEEN #/LPF (NONE SEEN); Crystals Seen? None Seen #/HPF (None Seen); Urine Culture Indicated YES-FRMC
[2025-04-01 17:26] LABS: Alanine Aminotransferase 24 U/L (14-59); Albumin Globulin Ratio 0.8; Albumin Level 3.4 g/dL (3.4-5.0); Alkaline Phosphatase 79 U/L (46-116); Anion Gap 15.1; Aspartate Amino Transferase 17 U/L (15-37); Blood Urea Nitrogen 13.0 mg/dL (7.0-18.0); Calcium 9.7 mg/dL (8.5-10.1); Carbon Dioxide 26.0 mmol/L (21.0-32.0); Chloride 102 mmol/L (98-107); Estimated GFR (African America >60 (>=60 mL/min/1.73m^2); Estimated GFR (Non-African Ame >60 (>=60 mL/min/1.73m^2); Globulin 4.2 g/dL; Glucose 112 mg/dL (74-106); Potassium 4.1 mmol/L (3.5-5.1); Sodium 139 mmol/L (136-145); Total Protein 7.6 g/dL (6.4-8.2)
[2025-04-01 17:39] LABS: Lactate/Lactic Acid 0.7 mmol/L (0.4-2.0)
[2025-04-01] MEDS: 0.9 % SODIUM CHLORIDE 1,000 ML 1000 ML IV (17:58)
[2025-04-01 18:01] VITALS: BP 97/62; PULSE 89; O2SAT 96
[2025-04-01 18:11] VITALS: BP 97/62; PULSE 91; O2SAT 98
--- NOTE | 2025-04-01 18:20 | ED_ITS ---
HPI - Abdominal Pain General Chief Complaint: Abdominal Pain Stated Complaint: BACK PAIN, BLOOD IN URINE Time Seen by Provider: 04/01/25 16:27 Source: patient Mode of arrival: walk-in History of Present Illness HPI narrative: Patient have a history of kidney stones coming to the ER with bilateral flank pain associated with chills nausea and generalized feeling of being sick, the patient recently had a foot surgery last week The patient pain is 10 out of 10 associated with nausea and vomiting and not radiating No other concerns Related Data Home Medications ?Medication ?Instructions ?Recorded ?Confirmed ketorolac 10 mg tablet 10 mg PO Q8H PRN pain 07/12/24 ondansetron 4 mg disintegrating 4 mg PO Q8H PRN nausea and vomiting 07/12/24 07/12/24 tablet oxycodone-acetaminophen 5 mg-325 1 tab PO Q6H PRN pain 07/12/24 07/12/24 mg tablet tamsulosin 0.4 mg capsule 0.4 mg PO Q24H 07/12/2406/22 Previous Rx's ?Medication ?Instructions ?Recorded cephalexin 500 mg capsule 500 mg PO TID 7 days #21 cap s 09/25/24 Allergies Allergy/AdvReac Type Severity Reaction Status Date / Time Penicillins AdvReac Mild Rash Verified 11/15/24 04:04 Review of Systems ROS Status of ROS 10 or more systems reviewed and unremark able except as noted in history and below PFSH PFSH Social History Little interest or pleasure in doing things: not at all Feeling down, depressed, or hopeless: not at all Exam Narrative Exam Narrative: Nurses notes and vital signs reviewed and patient is not hypoxic. General: Well-appearing and in no apparent distress. Skin: Warm, dry, no pallor noted. No rash. Head: Normocephalic, atraumatic. Neck: Supple, non-tender. Eye: Pupils are equal, round and EOMI. No scleral icterus. Ears, Nose, Mouth, and Throat: TM are clear, no nasal mucosal hypertrophy. Oral mucosa is moist, no posterior oropharynx erythema, uvula is mid-line Cardiovascular: Regular Rate and Rhythm without murmur, gallop or rub. Respiratory: No accessory muscle use or respiratory distress. Lungs are clear to auscultation, no wheezing, rales or rhonchi Chest Wall: no tenderness Back: No midline thoracic or lumbar vertebral tenderness. Bilateral flank pain and CVA tenderness Musculoskeletal: normal ROM, no calf or popliteal tenderness, clean the splint on the right leg GI: Abdomen is soft, non-distended. Normal bowel sounds. No masses appreciated. No tenderness to palpation. No rebound, guarding, or rigidity noted. Neurological: A&O x4. No cranial nerve dysfunction observed. No truncal ataxia. Moves all extremities. Sensation intact. Psychiatric: Cooperative and interactive. Normal mood and affect. Constitutional Vital Signs, click to edit/add: Last Vital Signs Temp 99.2 F 04/01/25 16:20 Pulse 91 H 04/01/25 18:11 Resp 20 04/01/25 18:11 BP 97/62 04/01/25 18:11 Pulse Ox 98 04/01/25 18:11 O2 Del Method Room Air 04/01/25 18:01 Course Vital Signs Vital signs: Vital Signs Temperature 99.2 F 04/01/25 16:20 Pulse Rate 96 H 04/01/25 16:20 Respiratory Rate 18 04/01/25 16:20 Blood Pressure 130/92 H 04/01/25 16:20 Temperature 99.2 F 04/01/25 16:20 Pulse Rate 91 H 04/01/25 18:11 Respiratory Rate 20 04/01/25 18:11 Blood Pressure 97/62 04/01/25 18:11 Pulse Oximetry 98 04/01/25 18:11 Oxygen Delivery Method Room Air 04/01/25 18:01 MDM - Abdominal Pain MDM Narrative Medical decision making narrative: The patient presenting with a picture of bilateral flank pain The white blood cell was elevated and the kidney function was normal and the patient have a negative test CAT scan shows a picture of possible ascending UTI with perinephric stranding The patient urine is positive for nitrite and the patient will be covered with Cipro Patient will be admitted for IV antibiotic for pyelonephritis management Patient care was discussed with and he agreed with above-mentioned plan Lab Data Labs: Lab Results 04/01/25 Range/Units 17:00 WBC 16.6 H (4.0-11.0) 10^3/uL RBC 4.21 (4.20-5.40) 10^6/uL Hgb 12.6 (12.0-16.0) g/dL Hct 38.1 (36.0-48.0) % MCV 90.5 (81.0-99.0) fL MCH 29.9 (26.7-34.0) pg MCHC 33.1 (29.9-35.2) g/dL RDW 14.3 (11.0-15.0) % Plt Count 301 (150-450) 10^3/uL MPV 10.9 (9.5-13.5) fL Neut % (Auto) 80.8 H (43.0-75.0) % Lymph % (Auto) 6.8 L (20.5-60.0) % [place] % (Auto) 11.2 (1.7-12.0) % Eos % (Auto) 0.1 L (0.9-7.0) % Baso % (Auto) 0.4 (0.2-2.0) % Neut # (Auto) 13.4 H (1.4-6.5) 10^3/uL Lymph # (Auto) 1.1 L (1.2-3.8) 10^3/uL [place] # (Auto) 1.9 H (0.3-0.8) 10^3/uL Eos # (Auto) 0.0 (0.0-0.7) 10^3/uL Baso # (Auto) 0.1 (0.0-0.1) 10^3/uL Abs Immat Gran (auto) 0.11 H (0.00-0.03) 10^3/uL Imm/Tot Granulo (auto) 0.7 H (0.0-0.5) % Sodium 139 (136-145) mmol/L Potassium 4.1 (3.5-5.1) mmol/L Chloride 102 (98-107) mmol/L Carbon Dioxide 26.0 (21.0-32.0) mmol/L Anion Gap 15.1 BUN 13.0 (7.0-18.0) mg/dL Creatinine 0.87 (0.55-1.02) mg/dL Est GFR ( Amer) >60 (>=60 mL/min/1.73m^2) Est GFR (Non-Af Amer) >60 (>=60 mL/min/1.73m^2) BUN/Creatinine Ratio 14.9 Glucose 112 H (74-106) mg/dL Lactate 0.7 (0.4-2.0) mmol/L Calcium 9.7 (8.5-10.1) mg/dL Total Bilirubin 0.7 (0.2-1.0) mg/dL AST 17 (15-37) U/L ALT 24 (14-59) U/L Alkaline Phosphatase 79 (46-116) U/L Total Protein 7.6 (6.4-8.2) g/dL Albumin 3.4 (3.4-5.0) g/dL Globulin 4.2 g/dL Albumin/Globulin Ratio 0.8 Serum HCG, Qual Negative (NEGATIVE) Urine Color Yellow (YELLOW) Urine Clarity Clear (CLEAR) Urine pH 6.5 (5.0-9.0) Ur Specific [place] 1.020 (1.005-1.025) Urine Protein >=300 A (NEG/TRACE) mg/dL Urine Glucose (UA) Negative (NEGATIVE) mg/dL Urine Ketones Negative (NEGATIVE) mg/dL Urine Occult Blood Small A (NEGATIVE) Urine Nitrite Positive A (NEGATIVE) Urine Bilirubin Negative (NEGATIVE) Urine Urobilinogen 0.2 (0.2-1.0) EU/dL Ur Leukocyte Esterase Small A (NEGATIVE) Urine RBC 0-2 (0-2) #/HPF Urine WBC 5-10 A (NONE SEEN) #/HPF Ur Squamous Epith Cells Rare (NONE/RARE) #/LPF Urine Crystals None seen (None Seen) #/HPF Urine Bacteria Small A (NONE SEEN) #/HPF Urine Casts None seen (NONE SEEN) #/LPF Urine Mucus None seen (NONE SEEN) Ur Culture Indicated? Yes-[facility] [place] Discharge Plan Discharge Chief Complaint: Abdominal Pain Clinical Impression: Pyelonephritis Patient Disposition: Admitted As Inpatient
[2025-04-01] MEDS: CIPROFLOXACIN IN 5 % DEXTROSE 400 MG/200 ML PREMIX 200 MG IV (18:35)
[2025-04-01 19:23] VITALS: BP 120/77; PULSE 90; O2SAT 100
--- OUTSIDE RECORDS SUMMARY | 2025-04-01 20:02 | XMS_ITS | CCD ---
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 Name Role Phone NO, FAMILY PHYSICIAN Primary [...] Unava ilable DO Ken Elias Emergency Provider [phone] NO FAMILY, PHYSICIAN Primary Care Provider Unava ilable DO Ken Elias Emergency Provider [phone] DO Felix Simpson Emergency Provider NO FAMILY, [...] Care Provider Shad Alamo DO Attending Provider [facility] Primary Care [facility] ider Emerald CLAIMS SUPPORT SPECIALIST, Ivy R Unavailable Anuja Saab MD Attending Provider Aura Brown APRN Emergency Provider Brock Mims APRN Emergency Provider Lluvia Ellis APRN Attending Provider [facility] Senior, Services Primary Care [facility] Anuja Saab Attending Unavailable Anuja Saab Admitting Unavailable [facility], Services Primary Care [facility] Anuja Saab Attending Unavailable Anuja Saab Admitting Unavailable Shad Alamo Admitting Unavailable [facility], Services Primary Care [facility] Shad Alamo Attending Unavailable Shad Alamo Attending Unavailable Jasmeet, Shad Primary Care Unavailable Shad Alamo Admitting Unavailable [facility], Services Primary Care [facility] Shad Alamo Attending Unavailable Shad Alamo Admitting Unavailable Brock Mims Admitting Unavailable [facility], Services Primary Care [facility] Brock Mism Attending Unavailable NO FAMILY, PHYSICIAN Primary Care Unavailable Felix Simpson Attending Unavailable Felix Simpson Admitting Unavailable Shaan Corrales Attending Unavailable Shaan Corrales Admitting Unavailable [facility], Services Primary Care [facility] Aura Brown Attending Unavailable Aura Brown Admitting Unavailable [facility], Services Primary Care [facility] Anuja Saab Admitting Unavailable Anuja Saab Attending Unavailable Unallocated MD, [place] Provider Primary Care Provi ashley ANUJA SAAB Attending Unavailable ANUJA SAAB Referring Unavailable ROWDY HONEYCUTT Attending Unavailable ROWDY HONEYCUTT Referring Unavailable ROWDY HONEYCUTT Attending Unavailable Unavailable Unavailable Unavailable Allergies Allergy Classification Reported Allergen(s) Allergy Type Date of Onset Reaction(s) Facility (20 sources) Penicillins; Translations: [Penicillins] Allergy to substance 05-23-2016 [facility] (1 source) Penicillin Drug Allergy [facility] Medications Current Medications Medication Drug Class(es) Dates Sig (Normalized) Sig (Original) acetaminophen 325 mg / HYDROcodone bitartrate 5 mg oral tablet (4 sources) Opioid Agonist Start: 03-27-2025 End: 04-01-2025 take 1 tablet by mouth every eight hours as needed for pain HYDROcodone-aceta minophen ([place]) 5-325 MG tablet Indications: Pain Take 1 [...] Discontinued 100 MG PO Twice daily 14 Rulo 25th, 2018 12:00am June 16, 2018 8:16pm [...] not open, crush, dissolve , or chew [place] (No Known Home Meds) (7 sources) Start: 07-11-2024 [place] (No Kn own Home Meds) Active July 10, 2024 11:00pm Start: 07-11-2024 [place] (No Kn own Home Meds) Active July 11, 2024 12:00am Prenat.Vits,Jacky,Usk-Yemm-Zym ic (8 sources) Start: 09-06-2019 take 1 tablet by mouth once daily Prenat.Vits,Jacky,Alb-Sucu-Yyrdm Active 1 TAB Oral Daily September 06, 2019 11:37pm Start: 09-06-2019 End: 09-22-2020 take 1 tablet by mouth once daily Prenat.Vits,Jacky,Ips-Laab-Nsriw Discontin ued 1 TAB PO Daily September 06, 2019 1:00am September 22, 2020 5:00pm Start: 09-06-2019 End: 09-22-2020 take 1 tablet by mouth once daily Prenat.Vits,Jacky,Pyx-Mlzn-Nbqej Discontin ued 1 TAB PO Daily September [...] 22, 2022 11:05pm 168 hr ethinyl estradiol 0.24927 mg/hr / norelgestromin 0.98908 mg/hr transdermal system (2 sources) Progestin, Estrogen [...] 2017 7:16pm administer with food or milk Prenat.Vits,Jacky,Ovd-Dzid-Nxy ic tablet (8 sources) Start: 09-06-2019 End: 09-22-2020 take 1 tablet by mouth once daily Prenat.Vits,Jacky,Jep-Oxly-Aiftj tablet Discontinued 1 TAB PO Daily September 06, 2019 1:00am September 22, 2020 5:00pm Start: 09-06-2019 End: 09-22-2020 take 1 tablet by mouth once daily Prenat.Vits,Jacky,Cfs-Kpww-Bzwzn tablet Discontinued 1 TAB PO Daily September [...] 2024 2:36pm Start: 04-17-2018 End: 04-22-2018 take 1.72893 tablets by mouth every twelve hours Sulfamethoxazole-Trimethoprim (Bactrim D s) 800-160 mg tablet Discontinued 1.63757 TAB PO Q12H 19.688 April 17, 2018 [...] Interpretation Reference Range Facility thyroidon 03-23-2025 thyroid [address] [place] [address] Ultrasound Report Signed Patient: Beatris Mack MR#: [id number] 549 : 2000 Acct:[id number] Age/Sex: 24 / F ADM Date: 03/23/25 Loc: Room: Type: [facility] Attending Dr: Shad Alamo DO Ordering [...] Bojorquez M.D. 03/23/2025 4:40 PM Dictation Location: [place] [address] Tech: Renetta Beck Transcribed By: RADHA 03/23/25 1640 Dictated By: Shaan Bojorquez DO 03/23/25 1634 Signed By: 03/23/25 1640 Normal [facility] Choriogonadotropin.beta subu nit [Units/volume] in Serum or PlasmaOrdered By: THANH Saab on 03-21-2025 HCG.beta subunit Qn 22.13 m[IU]/mL [facility] Comment on above: Approximate Approxim ate hCG Gestational Age Range (mIU/ml) (weeks)0.2-1 5-50 1-2 50-500 2-3 100-5,000 3-4 500-10,000 4-5 1,000-50,000 5-6 10,000-100,000 6-8 15,000-200,000 8-12 10,000-100,000 HCG,Quantitativeon 5 HCG,Quantitative 22.13 m[iU]/mL Normal [facility] Comment on above: Result Comment: Appr oximate Approximate hCG Gestational Age Range (mIU/ml) (weeks) 0.2-1 5-50 1-2 50-500 2-3 100-5,000 3-4 500-10,000 4-5 1,000-50,000 5-6 10,000-100,000 6-8 15,000-200,000 8-12 10,000-100,000 PERFORMED BY: [place] [address] PATHOLOGIST TEACHER ASSISTANT CALLI JAFFE M.D. Performed By: #### H CGQNT #### [address] No Panel Informationon 03-21 Radiology Study observation (narrative) [facility] [employer] ( [facility] ) XR Ankle - right 3 [facility] 0 03-21-2025 Imaging Result: Right distal fibular oblique fracture with slight posterior displacement and slight [facility] [employer] ( [facility] XR Foot - right 2 [facility] Imaging Result: Negative fractures identified normal foot morphology [facility] XR ankle RT min 3V*on 2024 XR ankle RT min 3V* [facility] [place] [address] [place] [address] XRay Report Signed Patient: Beatris Mack MR#: [id number] 549 : 2000 Acct:[id number] Age/Sex: 24 / F ADM Date: 03/02/25 Loc: ER Room: Type: [facility] ER Attending Dr: Copies to: Brock Mims [...] Sullivan M.D. 03/02/2025 5:34 PM Dictation Location: [facility]- Transcribed By: RADHA 03/02/25 173 Dictated By: Kevin Sullivan MD 03/02/251732 Signed By: 03/02/251733 Normal [facility] Comment on above: See report. Scanned copy available in EMR. FASTING.[facility] Test Name: DRUG SCREEN 17 W/CONF TEST#[id number] [facility] HEPATITIS B SURFACE ANTIGEN (FR)on 02-24-2025 HBSAG SCREEN Negative Negative [facility] Comment on above: Performed at: [address] [id number] [employer] Systems Administrator: Shai Marmolejo PhD, Phone: [phone] Hcv antibody rfx to quant pc luis alfredo 02-24-2025 HEPATITIS C VIRUS ANTIBODY Non-Reactive Non Reactive [facility] INTERPRETATION HEPATITIS C Comment . [facility] Comment on above: Not infected with HC V unless early or acute infection is suspected (which may be delayed in an immunocompromised individual), or other evidence exists to indicate HCV infection. No Panel Informationon 02-[address] Choriogonadotropin.beta subu nit [Units/volume] in Serum or PlasmaOrdered By: THANH Saab on 02-23-2025 HCG.beta subunit Qn Choriogonadotropin.b et a subunit [Units/volume] in Serum or Plasma [facility] Comment on above: Approximate Approxim ate hCG Gestational Age Range (mIU/ml) (weeks)0.2-1 5-50 1-2 50-500 2-3 100-5,000 3-4 500-10,000 4-5 1,000-50,000 5-6 10,000-100,000 6-8 15,000-200,000 8-12 10,000-100,000 HCG.beta subunit Qn 463.90 m[IU]/mL [facility] Comment on above: Approximate Approxim ate hCG Gestational Age Range (mIU/ml) (weeks)0.2-1 5-50 1-2 50-500 2-3 100-5,000 3-4 500-10,000 4-5 1,000-50,000 5-6 10,000-100,000 6-8 15,000-200,000 8-12 10,000-100,000 HCG,Quantitativeon HCG,Quantitative 463.90 m[iU]/mL Normal [facility] Comment on above: Result Comment: Appr oximate Approximate hCG Gestational Age Range (mIU/ml) (weeks) 0.2-1 5-50 1-2 50-500 2-3 100-5,000 3-4 500-10,000 4-5 1,000-50,000 5-6 10,000-100,000 6-8 15,000-200,000 8-12 10,000-100,000 PERFORMED BY: [place] [address] PATHOLOGIST TEACHER ASSISTANT CALLI JAFFE M.D. Performed By: #### H CGQNT #### [address] hCG, quantitative, on 02-23-2025 HCG,QUANTITATIVE 463.9 m[iU]/mL [facility] Comment on above: Approximate Approxim ate hCG Gestational Age Range (mIU/ml) (weeks) 0.2-1 5-50 1-2 50-500 2-3 100-5,000 3-4 500-10,000 4-5 1,000-50,000 5-6 10,000-100,000 6-8 15,000-200,000 8-12 10,000-100,000 [facility] Bacteria [Presence] in Urine by AutomatedOrdered By: ELN Saab on 02-22-2025 Bacteria Auto Ql (U) Bacteria [Presence] in Urine by Automated None Seen [facility] Bacteria Auto Ql (U) None seen [HPF] None Seen [facility] Basophils Auto (Bld) [#/Vol] Ordered By: LEN Saab on 02-22-2025 Basophils (Bld) [#/Vol] Automated basoph il count 0.0-0.2 [facility] Basophils [#/volume] in Bloo d by Automated countOrdered By: LEN Saab on 02-22-2025 Basophils (Bld) [#/Vol] 0.0 10*3/uL Normal 0.0-0.2 [facility] Comment on above: Order Comment: JUANITA COLÓNKW Result Comment: PERF ORMED BY: [facility] [address] [place] [address] PATHOLOGIST TEACHER ASSISTANT CALLI JAFFE M.D. Performed By: #### C UU, CBC, [facility], ADDONUAPLUS ####[facility] [id number]#### RPR W RFX, RUBEOLA IGG, HIV SCREEN, HCV RX PCR, HBSAG ####[facility] , Basophils/100 WBC Auto (Bld) Ordered By: LEN Saab on 02-22-2025 Basophils/100 WBC (Bld) Automated basophil % . [facility] Basophils/100 leukocytes in Blood by Automated countOrdered By: LEN Saab on 02-22-2025 Basophils/100 WBC (Bld) 0.8 % Normal . [facility] Comment on above: Order Comment: JUANITA PATRICK.JKW Performed By: #### C [facility]U, CBC, [facility] ####[facility] [id number] [place] [address] [place]#### RPR W RFX, RUBEOLA IGG, HIV SCREEN, HCV RX PCR, HBSAG ####[facility] , Bilirubin Test strip Ql (U)O rdered By: LEN Saab on 02-22-2025 Bilirubin Ql (U) Bilirubin.total [Presence] in Urine by Test strip Negative [facility] Bilirubin Ql (U) Negative Negative [facility] CBC W Auto Differential pane l (Bld)on 02-22-2025 Basophils (Bld) [#/Vol] 0 10*3/uL 0.0 - 0.2 10*3/uL [facility] Basophils/100 WBC Manual cnt (Syn fld) 0.8 % . [facility] Eosinophils (Bld) [#/Vol] 0 10*3/uL 0.0 - 0.45 10*3/uL [facility] Eosinophils/100 WBC Manual cnt (Syn fld) 0.4 % . [facility] Erythrocyte distribution width (RBC) [Ratio] 15.2 % 11.9 - 15.3 % [facility] Hematocrit (Bld) [Volume fraction] 35.9 % 34.0 - 46.4 % [facility] Hemoglobin (Bld) [Mass/Vol] 11.9 g/dL 11.8 - 15.4 g/dL [facility] Lymphocytes (Bld) [#/Vol] 2.2 10*3/uL 1.00 - 4.8 10*3/uL [facility] Lymphocytes/100 WBC Manual cnt (Syn fld) 34.9 % . [facility] MCH (RBC) [Entitic mass] 29.3 pg 24. 7 - 34.3 pg [facility] MCHC (RBC) [Mass/Vol] 33.1 g/dL 32.0 - 35.0 g/dL [facility] MCV (RBC) [Entitic vol] 88.5 fL 80 - 100 fL [facility] Monocytes (Bld) [#/Vol] 0.6 10*3/uL 0.0 - 0.8 10*3/uL [facility] Monocytes+Macrophages/10 0 WBC Manual cnt (Syn fld) 8.8 % . [facility] Neutrophils (Bld) [#/Vol] 3.5 10*3/uL 1.8 - 7.7 10*3/uL [facility] Neutrophils/100 WBC Manual cnt (Syn fld) 55.1 % . [facility] NRBC 0.1 /100{WBC} 0 - 0.5 /100{WBC} [facility] Platelet mean volume (Bld) [Entitic vol] 9.1 fL 6.3 - 10.7 fL [facility] Platelets (Bld) [#/Vol] 308 10*3/uL 150 - 450 10*3/uL [facility] RBC LM.HPF (Urine sed) [#/Area] 4.06 10*6/uL 3.60 - 5.00 10*6/uL [facility] WBC (Bld) [#/Vol] 6.4 10*3/uL 3.8 - 11.6 10*3/uL [facility] WBC LM.HPF (Urine sed) [#/Area] 6.4 10*3/uL 3.8 - 11.6 10*3/uL [facility] [email or web address].JKW [facility] Complete Blood Count Auto Di ffon 02-22-2025 Mean Corpuscular HGB Conc 33.1 g/dL Normal 32.0-35.0 [facility] Comment on above: Order Comment: FASTI NG.JKW Performed By: #### C UU, CBC, [facility], ADDONUAPLUS ####[place] [id number] [address]#### RPR W RFX, RUBEOLA IGG, HIV SCREEN, HCV RX PCR, HBSAG ####[facility] , NRBC% 0.1 /100{WBC} Normal 0-0.5 [facility] Comment on above: Order Comment: FASTI NG.JKW Performed By: #### C UU, CBC, [facility], ADDONUAPLUS ####[place] [address] [address]#### RPR W RFX, RUBEOLA IGG, HIV SCREEN, HCV RX PCR, HBSAG ####[facility] , Dipstick and Microscopicon 0 02-22-2025 Bacteria,Urine None Seen Normal None Seen [facility] Comment on above: Order Comment: FASTI NG.JKW Name Collection Type:: Clean-Voided Midstream Performed By: #### C UU, CBC, [facility], ADDONUAPLUS ####[place] [address] [place] [address] [place]#### RPR W RFX, RUBEOLA IGG, HIV SCREEN, HCV RX PCR, HBSAG ####[facility] , Bilirubin,Urine Negative Normal Negative [facility] Comment on above: Order Comment: FASTI NG.JKW Name Collection Type:: Clean-Voided Midstream Performed By: #### C UU, CBC, [facility], ADDONUAPLUS ####[address]#### RPR W RFX, RUBEOLA IGG, HIV SCREEN, HCV RX PCR, HBSAG ####[facility] , Glucose Ql (U) Normal Normal Normal [facility] Comment on above: Order Comment: JUANITA PATRICK.AleciaKW Name Collection Type:: Clean-Voided Midstream Performed By: #### C UU, CBC, [facility], ADDONUAPLUS ####[address]#### RPR W RFX, RUBEOLA IGG, HIV SCREEN, HCV RX PCR, HBSAG ####[facility] , Hyaline Casts,Urine None Normal 0-8 [facility] Comment on above: Order Comment: JUANITA PATRICK.AleciaKW Name Collection Type:: Clean-Voided Midstream Performed By: #### C UU, CBC, [facility], ADDONUAPLUS ####[address]#### RPR W RFX, RUBEOLA IGG, HIV SCREEN, HCV RX PCR, HBSAG ####[facility] , Ketones Ql (U) 2+ High Negative [facility] Comment on above: Order Comment: FASTSarita PATRICK.JKW Name Collection Type:: Clean-Voided Midstream Performed By: #### C UU, CBC, [facility], ADDONUAPLUS ####[address]#### RPR W RFX, RUBEOLA IGG, HIV SCREEN, HCV RX PCR, HBSAG ####[facility] , Mucus,Urine 2+ Critically abnormal [facility] Comment on above: Order Comment: FASTSarita PATRICK.AleciaKW Name Collection Type:: Clean-Voided Midstream Result Comment: PERF ORMED BY: [facility] [address] [address] PATHOLOGIST TEACHER ASSISTANT CALLI JAFFE M.D. Performed By: #### C UU, CBC, [facility], ADDONUAPLUS ####[address]#### RPR W RFX, RUBEOLA IGG, HIV SCREEN, HCV RX PCR, HBSAG ####[facility] , Nitrite,Urine Negative Normal Negative [facility] Comment on above: Order Comment: JUANITA COLÓNKW Name Collection Type:: Clean-Voided Midstream Performed By: #### C UU, CBC, [facility], ADDONUAPLUS ####[address]#### RPR W RFX, RUBEOLA IGG, HIV SCREEN, HCV RX PCR, HBSAG ####[facility] , Occult Blood,Urine 2+ High Negative [facility] Comment on above: Order Comment: JUANITA MCCARTYW Name Collection Type:: Clean-Voided Midstream Performed By: #### C UU, CBC, [facility], ADDONUAPLUS ####[address]#### RPR W RFX, RUBEOLA IGG, HIV SCREEN, HCV RX PCR, HBSAG ####[facility] , RBC,Urine 1-2 Normal 0-4 [facility] Comment on above: Order Comment: JUANITA MCCARTYW Name Collection Type:: Clean-Voided Midstream Performed By: #### C UU, CBC, [facility], ADDONUAPLUS ####[address]#### RPR W RFX, RUBEOLA IGG, HIV SCREEN, HCV RX PCR, HBSAG ####[facility] , Specificy [place],Urine >1.030 High 1.001-1.030 [facility] Comment on above: Order Comment: JUANITA MCCARTYW Name Collection Type:: Clean-Voided Midstream Performed By: #### C UU, CBC, [facility], ADDONUAPLUS ####[address]#### RPR W RFX, RUBEOLA IGG, HIV SCREEN, HCV RX PCR, HBSAG ####[facility] , Squamous Epithelial Cell,Urine 5-9 High 0-2 [facility] Comment on above: Order Comment: JUANITA MCCARTYW Name Collection Type:: Clean-Voided Midstream Performed By: #### C UU, CBC, [facility], ADDONUAPLUS ####[address]#### RPR W RFX, RUBEOLA IGG, HIV SCREEN, HCV RX PCR, HBSAG ####[facility] , Urobilinogen,Urine Normal Normal Normal [facility] Comment on above: Order Comment: JUANITA MCCARTYW Name Collection Type:: Clean-Voided Midstream Performed By: #### C UU, CBC, [facility], ADDONUAPLUS ####[address]#### RPR W RFX, RUBEOLA IGG, HIV SCREEN, HCV RX PCR, HBSAG ####[facility] , WBC,Urine 5-9 High 0-4 [facility] Comment on above: Order Comment: JUANITA PATRICK.JYaredW Name Collection Type:: Clean-Voided Midstream Performed By: #### C UU, CBC, [facility], ADDONUAPLUS ####[address]#### RPR W RFX, RUBEOLA IGG, HIV SCREEN, HCV RX PCR, HBSAG ####[facility] , Eosinophils Auto (Bld) [#/Vo l]Ordered By: LEN Saab on 02-22-2025 Eosinophils (Bld) [#/Vol] Automated eosinophil count 0.0-0.45 [facility] Eosinophils [#/volume] in Bl ood by Automated countOrdered By: LEN Saab on 02-22-2025 Eosinophils (Bld) [#/Vol] 0.0 10*3/uL Normal 0.0-0.45 [facility] Comment on above: Order Comment: FASTSarita NG.JKW Performed By: #### C UU, CBC, [facility], ADDONUAPLUS ####[facility] [id number] [place] [address] [place]#### RPR W RFX, RUBEOLA IGG, HIV SCREEN, HCV RX PCR, HBSAG ####[facility] , Eosinophils/100 WBC Auto (Bl d)Ordered By: LEN Saab on 02-22-2025 Eosinophils/100 WBC (Bld) Automated eosinophil % . [facility] Eosinophils/100 leukocytes i n Blood by Automated countOrdered By: LEN Saab on 02-22-2025 Eosinophils/100 WBC (Bld) 0.4 % Normal . [facility] Comment on above: Order Comment: FASTSarita PATRICK.JKW Performed By: #### C UU, CBC, [facility], ADDONUAPLUS ####[facility] [address] [place] [address] [place]#### RPR W RFX, RUBEOLA IGG, HIV SCREEN, HCV RX PCR, HBSAG ####[facility] , Epithelial cells.squamous [# /area] in Urine sediment by Automated countOrdered By: LEN Saab on 02-22-2025 Epithelial cells.squamous Auto (Urine sed) [#/Area] Epithelial cells.squamous [#/area] in Urine sediment by Automated count High 0-2 [facility] Epithelial cells.squamous Auto (Urine sed) [#/Area] 5-9 [HPF] High 0-2 [facility] Erythrocyte distribution wid th Auto (RBC) [Ratio]Ordered By: LEN Saab on 02-22-2025 Erythrocyte distribution width (RBC) [Ratio] Erythrocyte distribution width [Ratio] by Automated count 11.9-15.3 [facility] Erythrocyte distribution wid th [Ratio] by Automated countOrdered By: LEN Saab on 02-22-2025 Erythrocyte distribution width (RBC) [Ratio] 15.2 % Normal 11.9-15.3 [facility] Comment on above: Order Comment: JUANITA BOLTONJKW Performed By: #### C UU, CBC, [facility], ADDONUAPLUS ####[facility] [place] [id number] [facility]#### RPR W RFX, RUBEOLA IGG, HIV SCREEN, HCV RX PCR, HBSAG ####[facility] , Erythrocytes [#/area] in Uri ne sediment by Automated countOrdered By: LEN Saab on 02-22-2025 RBC Auto (Urine sed) [#/Area] Erythrocytes [#/area] in Urine sediment by Automated count 0-4 [facility] RBC Auto (Urine sed) [#/Area] 1-2 [HPF] 0-4 [facility] Erythrocytes [#/volume] in B lood by Automated countOrdered By: LEN Saab on 02-22-2025 RBC (Bld) [#/Vol] 4.06 10*6/uL Normal 3.60-5.00 [facility] Comment on above: Order Comment: JUANITA COLNÓKW Performed By: #### C UU, CBC, [facility], [facility] ####[facility]#### RPR W RFX, RUBEOLA IGG, HIV SCREEN, HCV RX PCR, HBSAG ####[facility] , Glucose [Mass/volume] in Uri ne by Test stripOrdered By: LEN Saab on 02-22-2025 Glucose Test strip (U) [Mass/Vol] Glucose [Mass/volume] in Urine by Test strip Normal [facility] Glucose Test strip (U) [Mass/Vol] Normal mg/dL Normal [facility] HIV 1/O/2 Antigen/Antibodyon 02-22-2025 HIV Screen 4th Generation Non-Reactive Normal Non Reactive [facility] Comment on above: Order Comment: FASTI NG.JKW Result Comment: HIV- 1/HIV-2 antibodies and HIV-1 p24 antigen were NOT detected. There is no laboratory evidence of HIV infection. HIV Negative Performed at: [address] [id number] [employer] Systems Administrator: Shai Marmolejo PhD, Phone: [phone] Performed By: #### C UU, CBC, [facility], ADDONUAPLUS ####[place] [address] [address]#### RPR W RFX, RUBEOLA IGG, HIV SCREEN, HCV RX PCR, HBSAG ####[facility] , HIV antibody and antigen jo elOrdered By: LEN Saab on 02-22-2025 HIV 1+2 Ab+HIV1 p24 Ag IA Ql HIV 1 and HIV-2 antibody assay with HIV-1 p24 antigen detection Non Reactive [facility] Comment on above: HIV-1/HIV-2 antibodi es and HIV-1 p24 antigen were NOTdetected. There is no laboratory evidence of HIV infection.HIV NegativePerformed at: [address] [id number] Director: Shai Marmolejo PhD, Phone: [phone] Hematocrit Auto (Bld) [Volum e fraction]Ordered By: LEN Saab on 02-22-2025 Hematocrit (Bld) [Volume fraction] Hematocrit [Volume Fraction] of Blood by Automated count 34.0-46.4 [facility] Hematocrit [Volume Fraction] of Blood by Automated countOrdered By: LEN Saab on 02-22-2025 Hematocrit (Bld) [Volume fraction] 35.9 % Normal 34.0-46.4 [facility] Comment on above: Order Comment: JUANITA DEGROOT Performed By: #### C [facility]U, CBC, [facility], [facility] ####[place] [address] [address]#### RPR W RFX, RUBEOLA IGG, HIV SCREEN, HCV RX PCR, HBSAG ####[facility] , Hemoglobin Test strip Ql (U) Ordered By: LEN Saab on 02-22-2025 Hemoglobin Ql (U) Hemoglobin [Presence ] in Urine by Test strip High Negative [facility] Hemoglobin Ql (U) 2+ High Negative [facility] Hemoglobin [Mass/volume] in BloodOrdered By: LEN Saab on 02-22-2025 Hemoglobin (Bld) [Mass/Vol] Hemoglobin [Mass/volume] in Blood 11.8-15.4 [facility] Hemoglobin (Bld) [Mass/Vol] 11.9 g/dL Normal 11.8-15.4 [facility] Comment on above: Order Comment: FASTI NG.JKW Performed By: #### C UU, CBC, [facility], ADDONUAPLUS ####[place] [address] [address]#### RPR W RFX, RUBEOLA IGG, HIV SCREEN, HCV RX PCR, HBSAG ####[facility] , Hep C Ab wRfx to Qnt PCRon 0 02-22-2025 Hepatitis C Virus Antibody Non-Reactive Normal Non Reactive [facility] Comment on above: Order Comment: FASTI [email or web address] Performed By: #### C UU, CBC, MISC LAB, ADDONUAPLUS ####[address]#### RPR W RFX, RUBEOLA IGG, HIV SCREEN, HCV RX PCR, HBSAG ####[facility] , Interpretation Hepatitis C Comment Normal . [facility] Comment on above: Order Comment: FASTI [email or web address] Result Comment: Not infected with HCV unless early or acute infection is suspected (which may be delayed in an immunocompromised individual), or other evidence exists to indicate HCV infection. Performed By: #### C UU, CBC, MISC LAB, ADDONUAPLUS ####[facility] [place] [address] [place]#### RPR W RFX, RUBEOLA IGG, HIV SCREEN, HCV RX PCR, HBSAG ####[facility] , Hepatitis B Surface Antigeno n 02-22-2025 HBsAg Screen Negative Normal Negative [facility] Comment on above: Order Comment: JUANITA DEGROOT Result Comment: Perf ormed at: - [facility] [address] [id number] Wide Area Network Systems Administrator: Shai Marmolejo PhD, Phone: [phone] PERFORMED BY: [facility] [address] [place] [address] PATHOLOGIST TEACHER ASSISTANT CALLI JAFFE M.D. Performed By: #### C UU, CBC, MISC LAB, ADDONUAPLUS ####[facility] [id number]#### RPR W RFX, RUBEOLA IGG, HIV SCREEN, HCV RX PCR, HBSAG ####[facility] , Hepatitis C virus IgG Ab [Pr esence] in Serum or Plasma by ImmunoassayOrdered By: LEN Saab on 02-22-2025 HCV IgG IA Ql Hepatitis C virus Ig G Ab [Presence] in Serum or Plasma by Immunoassay Non Reactive [facility] HCV IgG IA Ql Non-Reactive Non Reactive [facility] Hyaline casts [#/area] in Ur ine sediment by Automated countOrdered By: LEN Saab on 02-22-2025 Hyaline casts Auto (Urine sed) [#/Area] Hyaline casts [#/area] in Urine sediment by Automated count 0-8 [facility] Hyaline casts Auto (Urine sed) [#/Area] None [LPF] 0-8 [facility] Ketones Test strip (U) [Mass /Vol]Ordered By: LEN Saab on 02-22-2025 Ketones (U) [Mass/Vol] Urine ketones measurement by test strip (mass/volume) High Negative [facility] Ketones (U) [Mass/Vol] 2+ High Negative [facility] Leukocyte esterase [Presence ] in Urine by Test stripOrdered By: LEN Saab on 02-22-2025 Leukocyte esterase Test strip Ql (U) Leukocyte esterase [Presence] in Urine by Test strip High Negative [facility] Leukocyte esterase Test strip Ql (U) 1+ High Negative [facility] Comment on above: Order Comment: JUANITA DEGROOT Name Collection Type:: Clean-Voided Midstream Performed By: #### C UU, CBC, MISC LAB, ADDONUAPLUS ####[facility] [id number]#### RPR W RFX, RUBEOLA IGG, HIV SCREEN, HCV RX PCR, HBSAG ####[facility] , Leukocytes [#/area] in Urine sediment by Automated countOrdered By: LEN Saab on 02-22-2025 WBC Auto (Urine sed) [#/Area] Leukocytes [#/area] in Urine sediment by Automated count High 0-4 [facility] WBC Auto (Urine sed) [#/Area] 5-9 [HPF] High 0-4 [facility] Leukocytes [#/volume] correc lashon for nucleated erythrocytes in Blood by Automated counOrdered By: LEN Saab on 02-22-2025 WBC corrected for nucl RBC Auto (Bld) [#/Vol] Leukocytes [#/volume] corrected for nucleated erythrocytes in Blood by Automated coun 3.8-11.6 [facility] WBC corrected for nucl RBC Auto (Bld) [#/Vol] 6.4 10*3/uL 3.8-11.6 [facility] Leukocytes [#/volume] in Blo od by Automated countOrdered By: LEN Saab on 02-22-2025 WBC (Bld) [#/Vol] 6.4 10*3/uL Normal 3.8-11.6 [facility] Comment on above: Order Comment: JUANITA MCCARTYW Performed By: #### C UU, CBC, MISC LAB, ADDONUAPLUS ####[facility] [id number]#### RPR W RFX, RUBEOLA IGG, HIV SCREEN, HCV RX PCR, HBSAG ####[facility] , Lymphocytes Auto (Bld) [#/Vo l]Ordered By: LEN Saab on 02-22-2025 Lymphocytes (Bld) [#/Vol] Lymphocytes [#/volume] in Blood by Automated count 1.00-4.8 [facility] Lymphocytes [#/volume] in Bl ood by Automated countOrdered By: LEN Saab on 02-22-2025 Lymphocytes (Bld) [#/Vol] 2.2 10*3/uL Normal 1.00-4.8 [facility] Comment on above: Order Comment: FASTSarita [email or web address].JKW Performed By: #### C UU, CBC, MISC LAB, ADDONUAPLUS ####[facility] [id number] [place] [address] [place]#### RPR W RFX, RUBEOLA IGG, HIV SCREEN, HCV RX PCR, HBSAG ####[facility] , Lymphocytes/100 WBC Auto (Bl d)Ordered By: LEN Saab on 02-22-2025 Lymphocytes/100 WBC (Bld) Lymphocytes/100 leukocytes in Blood by Automated count . [facility] Lymphocytes/100 leukocytes i n Blood by Automated countOrdered By: LEN Saab on 02-22-2025 Lymphocytes/100 WBC (Bld) 34.9 % Normal . [facility] Comment on above: Order Comment: FASTSarita [email or web address].JKW Performed By: #### C UU, CBC, MISC LAB, ADDONUAPLUS ####[facility] Exm[address] [place] [address] [place]#### RPR W RFX, RUBEOLA IGG, HIV SCREEN, HCV RX PCR, HBSAG ####[facility] , MCH Auto (RBC) [Entitic mass ]Ordered By: LEN Saab on 02-22-2025 MCH (RBC) [Entitic mass] MCH [Entitic ma ss] by Automated count 24.7-34.3 [facility] MCH [Entitic mass] by Automa lashon countOrdered By: LEN Saab on 02-22-2025 MCH (RBC) [Entitic mass] 29.3 pg Normal 24.7-34.3 [facility] Comment on above: Order Comment: FASTSarita [email or web address].JKW Performed By: #### C UU, CBC, MISC LAB, ADDONUAPLUS ####[place] [address] [address]#### RPR W RFX, RUBEOLA IGG, HIV SCREEN, HCV RX PCR, HBSAG ####[facility] , MCHC Auto (RBC) [Mass/Vol]Or dered By: LEN Saab on 02-22-2025 MCHC (RBC) [Mass/Vol] MCHC [Mass/volume] by Automated count 32.0-35.0 [facility] MCHC (RBC) [Mass/Vol] 33.1 g/dL 32.0-35.0 [facility] MCV Auto (RBC) [Entitic vol] Ordered By: LEN Saab on 02-22-2025 MCV (RBC) [Entitic vol] MCV [Entitic vol ume] by Automated count 80-100 [facility] MCV [Entitic volume] by Auto mated countOrdered By: LEN Saab on 02-22-2025 MCV (RBC) [Entitic vol] 88.5 fL Normal 80-100 [facility] Comment on above: Order Comment: FASTSarita [email or web address].JKW Performed By: #### C UU, CBC, MISC LAB, ADDONUAPLUS ####[place] [address] [address]#### RPR W RFX, RUBEOLA IGG, HIV SCREEN, HCV RX PCR, HBSAG ####[facility] , MISC LABon 02-22-2025 MISC LAB Normal [facility] Comment on above: Order Comment: JUANITA BOLTONJKW [facility] Test Name: DRUG SCREEN 17 W/CONF TEST#[id number] Result Comment: See report. Scanned copy available in EMR. PERFORMED BY: [facility] [address] [place] [address] PATHOLOGIST TEACHER ASSISTANT CALLI JAFFE M.D. Performed By: #### C UU, CBC, MISC LAB, ADDONUAPLUS ####[place] [address] [address]#### RPR W RFX, RUBEOLA IGG, HIV SCREEN, HCV RX PCR, HBSAG ####[facility] , Monocytes Auto (Bld) [#/Vol] Ordered By: LEN Saab on 02-22-2025 Monocytes (Bld) [#/Vol] Automated blood monocyte count 0.0-0.8 [facility] Monocytes [#/volume] in Bloo d by Automated countOrdered By: LEN Saab on 02-22-2025 Monocytes (Bld) [#/Vol] 0.6 10*3/uL Normal 0.0-0.8 [facility] Comment on above: Order Comment: FASTI [email or web address] Performed By: #### C UU, CBC, [facility], [place] ####[place] [address] [place]#### RPR W RFX, RUBEOLA IGG, HIV SCREEN, HCV RX PCR, HBSAG ####[facility] , Monocytes/100 WBC Auto (Bld) Ordered By: LEN Saab on 02-22-2025 Monocytes/100 WBC (Bld) Automated monocyte % . [facility] Monocytes/100 leukocytes in Blood by Automated countOrdered By: LEN Saab on 02-22-2025 Monocytes/100 WBC (Bld) 8.8 % Normal . [facility] Comment on above: Order Comment: FASTI [email or web address].JKW Performed By: #### C UU, CBC, MISC LAB, ADDONUAPLUS ####[place] [address] [place]#### RPR W RFX, RUBEOLA IGG, HIV SCREEN, HCV RX PCR, HBSAG ####[facility] , Mucus [Presence] in Urine by AutomatedOrdered By: LEN Saab on 02-22-2025 Mucus Auto Ql (U) Mucus [Presence] in Urine by Automated Abnormal [facility] Mucus Auto Ql (U) 2+ [LPF] Abnormal [facility] Neutrophils Auto (Bld) [#/Vo l]Ordered By: LEN Saab on 02-22-2025 Neutrophils (Bld) [#/Vol] Neutrophils [#/volume] in Blood by Automated count 1.8-7.7 [facility] Neutrophils [#/volume] in Bl ood by Automated countOrdered By: LEN Saab on 02-22-2025 Neutrophils (Bld) [#/Vol] 3.5 10*3/uL Normal 1.8-7.7 [facility] Comment on above: Order Comment: JUANITA COLÓNKW Performed By: #### C UU, CBC, [facility], ADDONUAP[facility] ####[facility] [id number] [place] [address] [place]#### RPR W RFX, RUBEOLA IGG, HIV SCREEN, HCV RX PCR, HBSAG ####[facility] , Neutrophils/100 WBC Auto (Bl d)Ordered By: LEN Saab on 02-22-2025 Neutrophils/100 WBC (Bld) Automated neutrophil % . [facility] Neutrophils/100 leukocytes i n Blood by Automated countOrdered By: LEN Saab on 02-22-2025 Neutrophils/100 WBC (Bld) 55.1 % Normal . [facility] Comment on above: Order Comment: JUANITA COLÓNKW Performed By: #### C UU, CBC, MISC LAB, ADDONUAPLUS ####[facility] Rph[address] [place] [address] [place]#### RPR W RFX, RUBEOLA IGG, HIV SCREEN, HCV RX PCR, HBSAG ####[facility] , Nitrite Test strip Ql (U)Ord ered By: LEN Saab on 02-22-2025 Nitrite Ql (U) Nitrite [Presence] i n Urine by Test strip Negative [facility] Nitrite Ql (U) Negative Negative [facility] No Panel InformationOrdered By: LEN Saab on 02-22-2025 Hepatitis C Interpretation Comment . [facility] Comment on above: Not infected with HC V unless early or acute infection issuspected (which may be delayed in an immunocompromisedindividual), or other evidence exists to indicate HCVinfection. Miscellaneous Test See comment [facility] Comment on above: See report. Scanned copy available in EMR. Nucleated erythrocytes [Pres ence] in Blood by Automated countOrdered By: LEN Saab on 02-22-2025 Nucleated RBC Auto Ql (Bld) Nucleated erythrocytes [Presence] in Blood by Automated count 0-0.5 [facility] Nucleated RBC Auto Ql (Bld) 0.1 /100{WBC} 0-0.5 [facility] Platelet mean volume Auto (B ld) [Entitic vol]Ordered By: LEN Saab on 02-22-2025 Platelet mean volume (Bld) [Entitic vol] Platelet mean volume [Entitic volume] in Blood by Automated count 6.3-10.7 [facility] Platelet mean volume [Entiti c volume] in Blood by Automated countOrdered By: THANH Saab on 02-22-2025 Platelet mean volume (Bld) [Entitic vol] 9.1 fL Normal 6.3-10.7 [facility] Comment on above: Order Comment: JUANITA COLÓNKW Performed By: #### C UU, CBC, MISC LAB, ADDONUAPLUS ####[facility] [id number]#### RPR W RFX, RUBEOLA IGG, HIV SCREEN, HCV RX PCR, HBSAG ####[facility] , Platelets Auto (Bld) [#/Vol] Ordered By: LEN Saab on 02-22-2025 Platelets (Bld) [#/Vol] Platelets [#/vol ume] in Blood by Automated count 150-450 [facility] Platelets [#/volume] in Bloo d by Automated countOrdered By: LEN Saab on 02-22-2025 Platelets (Bld) [#/Vol] 308 10*3/uL Normal 150-450 [facility] Comment on above: Order Comment: JUANITA [email or web address] Performed By: #### C UU, CBC, MISC LAB, ADDONUAPLUS ####[place] [address] [address]#### RPR W RFX, RUBEOLA IGG, HIV SCREEN, HCV RX PCR, HBSAG ####[facility] , Protein Test strip (U) [Mass /Vol]Ordered By: LEN Saab on 02-22-2025 Protein (U) [Mass/Vol] Protein [Mass/vol ume] in Urine by Test strip High Negative [facility] Protein [Mass/volume] in Uri ne by Test stripOrdered By: LEN Saab on 02-22-2025 Protein (U) [Mass/Vol] 10 mg/dL High Negative [facility] Comment on above: Order Comment: JUANITA COLÓNKW Name Collection Type:: Clean-Voided Midstream Performed By: #### C UU, CBC, MISC LAB, ADDONUAPLUS ####[place] [address] [address]#### RPR W RFX, RUBEOLA IGG, HIV SCREEN, HCV RX PCR, HBSAG ####[facility] , RBC Auto (Bld) [#/Vol]Ordere d By: LEN Saab on 02-22-2025 RBC (Bld) [#/Vol] Erythrocytes [#/volume] in Blood by Automated count 3.60-5.00 [facility] RPR w/rfx to Quant TP Abson 02-22-2025 RPR, Rfx Quant RPR Non-Reactive Normal Non Reactive [facility] Comment on above: Order Comment: JUANITA BOLTONJKW Result Comment: PERF ORMED BY: [facility] [address] [place] [address] PATHOLOGIST TEACHER ASSISTANT CALLI JAFFE M.D. Performed By: #### C UU, CBC, MISC LAB, ADDONUAPLUS ####[place] [address]#### RPR W RFX, RUBEOLA IGG, HIV SCREEN, HCV RX PCR, HBSAG ####[facility] , Rubeola (Measles) Abs, IgGon 02-22-2025 Rubeola (Measles) Abs, IgG 201.0 Normal Immune >16.4 [facility] Comment on above: Order Comment: JUANITA MCCARTYW Result Comment: Nega tive <13.5 Equivocal 13.5 - 16.4 Positive >16.4 Presence of antibodies to Rubeola is presumptive evidence of immunity except when acute infection is suspected. Performed at: [facility] [id number] Wide Area Network Systems Administrator: Shai Marmolejo PhD, Phone: [phone] Performed By: #### C UU, CBC, MISC LAB, ADDONUAPLUS ####[facility]#### RPR W RFX, RUBEOLA IGG, HIV SCREEN, HCV RX PCR, HBSAG ####[facility] , Serum RPR testOrdered By: MD MARTINA Saab on 02-22-2025 Reagin Ab RPR Ql (S) Reagin Ab [Presence ] in Serum by RPR Non Reactive [facility] Reagin Ab RPR Ql (S) Non-Reactive Non Reactive [facility] Serum measles virus IgG anti body assay by immunoassay (units/volume)Ordered By: LEN Saab on 02-22-2025 MeV IgG IA Qn (S) Measles virus IgG Ab [Units/volume] in Serum by Immunoassay Immune >16.4 [facility] Comment on above: Negative <13.5 Equiv ocal 13.5 - 16.4 Positive >16.4Presence of antibodies to Rubeola is presumptive evidenceof immunity except when acute infection is suspected.Performed at: [facility] [id number] Director: Shai Marmolejo PhD, Phone: [phone] MeV IgG IA Qn (S) 201.0 AU/mL Immune >16.4 [facility] Comment on above: Negative <13.5 Equiv ocal 13.5 - 16.4 Positive >16.4Presence of antibodies to Rubeola is presumptive evidenceof immunity except when acute infection is suspected.Performed at: [email or web address] [address] [id number] Director: Shai Marmolejo PhD, Phone: [phone] Serum or plasma hepatitis B virus surface antigen detection by immunoassayOrdered By: LEN Saab on 02-22-2025 HBV surface Ag IA Ql Hepatitis B virus surface Ag [Presence] in Serum or Plasma by Immunoassay Negative [facility] Comment on above: Performed at: [employer] [address] [id number] Director: Shai Marmolejo PhD, Phone: [phone] HBV surface Ag IA Ql Negative Negative [facility] Comment on above: Performed at: [employer] [address] [id number] Director: Shai Marmolejo PhD, Phone: [phone] Specific gravity of Urine by RefractometryOrdered By: LEN Saab on 02-22-2025 Specific gravity Refractometry (U) [Rel density] Specific gravity of Urine by Refractometry High 1.001-1.030 [facility] Specific gravity Refractometry (U) [Rel density] >1.030 High 1.001-1.030 [facility] Type and Screenon 02-22-2025 ABO and Rh group Nom (Bld) Blood group O Rh(D) positive Normal [facility] Comment on above: Order Comment: FASTI [email or web address].JKW Urine Cultureon 02-22-2025 Bacteria identified Cx Nom (U) FASTING.JKW ORGANISM: Strep agalactiae - (group b) (O:STRAGA) [place] Count 30,000 PERFORMED BY: [facility] [address] [place] [place] [address] PATHOLOGIST TEACHER ASSISTANT CALLI JAFFE M.D. Normal [facility] Comment on above: Performed By: #### C UU, CBC, MISC LAB, ADDONUAPLUS ####[place] [address] [place] [address] [place]#### RPR W RFX, RUBEOLA IGG, HIV SCREEN, HCV RX PCR, HBSAG ####[facility] , Urine appearance determinati onOrdered By: LEN Saab on 02-22-2025 Appearance (U) Urine appearance Clear [facility] Appearance (U) Clear Normal Clear [facility] Comment on above: Order Comment: JUANITA BOLTONJYaredW Name Collection Type:: Clean-Voided Midstream Performed By: #### C UU, CBC, MISC LAB, ADDONUAPLUS ####[address]#### RPR W RFX, RUBEOLA IGG, HIV SCREEN, HCV RX PCR, HBSAG ####[facility] , Urine color determinationOrd ered By: LEN Saab on 02-22-2025 Color (U) Urine color Yellow [facility] Color (U) Yellow Normal Yellow [facility] Comment on above: Order Comment: JUANITA [email or web address].JKW Name Collection Type:: Clean-Voided Midstream Performed By: #### C UU, CBC, MISC LAB, ADDONUAPLUS ####[address]#### RPR W RFX, RUBEOLA IGG, HIV SCREEN, HCV RX PCR, HBSAG ####[facility] , Urine cultureOrdered By: THANH Saab on 02-22-2025 Bacteria identified Cx Nom (U) Group B Strep (Streptococcus agalactiae) Abnormal [facility] Bacteria identified Cx Nom (U) Strep agalactiae - (group b) Abnormal [facility] Urobilinogen Test strip (U) [Mass/Vol]Ordered By: LEN Saab on 02-22-2025 Urobilinogen (U) [Mass/Vol] Urobilinogen [Mass/volume] in Urine by Test strip Normal [facility] Urobilinogen (U) [Mass/Vol] Normal mg/dL Normal [facility] WBC Auto (Bld) [#/Vol]Ordere d By: LEN Saab on 02-22-2025 WBC (Bld) [#/Vol] Leukocytes [#/volume ] in Blood by Automated count 3.8-11.6 [facility] pH Test strip (U)Ordered By: LEN Saab on 02-22-2025 pH (U) pH of Urine by Test strip 5.0-9.0 [facility] pH of Urine by Test stripOrd ered By: LEN Saab on 02-22-2025 pH (U) 5.5 [pH] Normal 5.0-9.0 [facility] Comment on above: Order Comment: JUANITA DEGROOT Name Collection Type:: Clean-Voided Midstream Performed By: #### C UU, CBC, MISC LAB, ADDONUAPLUS ####[facility] Own[address]#### RPR W RFX, RUBEOLA IGG, HIV SCREEN, HCV RX PCR, HBSAG ####[facility] , Thyroid Stimulating Immunogl obon 02-15-2025 Thyroid Stimulating Immunoglob <0.10 Normal 0.00-0.55 [facility] Comment on above: Order Comment: Reaso n for Exam Decreased thyroid stimulating hormone (TSH) level Result Comment: Perf ormed at: - [facility] [address] [id number] [employer] Systems Administrator: Mami Frank MD, Phone: [phone] PERFORMED BY: [facility] [address] [place] [address] PATHOLOGIST TEACHER ASSISTANT CALLI JAFFE M.D. Performed By: #### H CGQNT #### [facility] [address] Thyroid stimulating immunogl obulin (TSI) measurementOrdered By: Shad Alamo on 02-15-2025 Thyroid stimulating immunoglobulins actual/normal (S) [Relative mass conc] Thyroid stimulating immunoglobulin (TSI) measurement 0.00-0.55 [facility] Comment on above: Performed at: [facility] [address] [place], [place] [id number] Director: Mami Frank MD, Phone: [phone] Thyroid stimulating immunoglobulins actual/normal (S) [Relative mass conc] <0.10 IU/L 0.00-0.55 [facility] Comment on above: Performed at: [facility] [address] [id number] Director: Mami Frank MD, Phone: [phone] Alanine aminotransferase [En zymatic activity/volume] in Serum or PlasmaOrdered By: Shad Alamo on 02-01-2025 ALT [Catalytic activity/Vol] Alanine aminotransferase [Enzymatic activity/volume] in Serum or Plasma [facility] ALT [Catalytic activity/Vol] 21 U/L Normal [facility] Comment on above: Order Comment: Reaso n for Exam Generalized anxiety disorder Performed By: #### H CGQNT #### [facility] [address] [place] [address] Albumin [Mass/volume] in Ser um or Plasma by Bromocresol green (BCG) dye binding methoOrdered By: Shad Alamo on 02-01-2025 Albumin BCG dye [Mass/Vol] Albumin [Mass/volume] in Serum or Plasma by Bromocresol green (BCG) dye binding metho 3.5-5.7 [facility] Albumin BCG dye [Mass/Vol] 4.6 g/dL 3.5-5.7 [facility] Alkaline phosphatase [Enzyma tic activity/volume] in Serum or PlasmaOrdered By: Shad Alamo on 02-01-2025 ALP [Catalytic activity/Vol] Alkaline phosphatase [Enzymatic activity/volume] in Serum or Plasma 34 [facility] ALP [Catalytic activity/Vol] 67 U/L Normal [facility] Comment on above: Order Comment: Reaso n for Exam Generalized anxiety disorder Performed By: #### H CGQNT #### [facility] [address] [place] [address] [place] Aspartate aminotransferase [ Enzymatic activity/volume] in Serum or PlasmaOrdered By: Shad Alamo on 02-01-2025 AST [Catalytic activity/Vol] Aspartate aminotransferase [Enzymatic activity/volume] in Serum or Plasma [facility] AST [Catalytic activity/Vol] 17 U/L Normal - [facility] Comment on above: Order Comment: Reaso n for Exam Generalized anxiety disorder Performed By: #### H CGQNT #### [facility] [address] Basophils Auto (Bld) [#/Vol] Ordered By: Shad Alamo on 02-01-2025 Basophils (Bld) [#/Vol] Automated basoph il count 0.0-0.2 [facility] Basophils [#/volume] in Bloo d by Automated countOrdered By: Shad Alamo on 02-01-2025 Basophils (Bld) [#/Vol] 0.1 10*3/uL Normal 0.0-0.2 [facility] Comment on above: Order Comment: Reaso n for Exam Generalized anxiety disorder Result Comment: PERF ORMED BY: [place] [address] PATHOLOGIST TEACHER ASSISTANT JEAN CARLOS LYNN M.D. Performed By: #### H CGQNT #### [address] Basophils/100 WBC Auto (Bld) Ordered By: Shad Alamo on 02-01-2025 Basophils/100 WBC (Bld) Automated basophil % . [facility] Basophils/100 leukocytes in Blood by Automated countOrdered By: Shad Alamo on 02-01-2025 Basophils/100 WBC (Bld) 0.9 % Normal . [facility] Comment on above: Order Comment: Reaso n for Exam Generalized anxiety disorder Performed By: #### H CGQNT #### [facility] [address] [place] [address] Bilirubin.total [Mass/volume ] in Serum or PlasmaOrdered By: Shad Alamo on 02-01-2025 Bilirubin [Mass/Vol] Bilirubin.total [Mass/volume] in Serum or Plasma 0.3-1.0 [facility] Bilirubin [Mass/Vol] 0.5 mg/dL Normal 0.3-1.0 [facility] Comment on above: Order Comment: Reaso n for Exam Generalized anxiety disorder Performed By: #### H CGQNT #### [facility] [address] Calcium [Mass/volume] in Ser um or PlasmaOrdered By: Shad Alamo on 02-01-2025 Calcium [Mass/Vol] Calcium [Mass/volume ] in Serum or Plasma 8.6-10.3 [facility] Calcium [Mass/Vol] 10.2 mg/dL Normal 8.6-10.3 [facility] Comment on above: Order Comment: Reaso n for Exam Generalized anxiety disorder Performed By: #### H CGQNT #### [facility] [address] Carbon dioxide, total [Moles /volume] in Serum or PlasmaOrdered By: Shad Alamo on 02-01-2025 CO2 [Moles/Vol] Carbon dioxide, tota l [Moles/volume] in Serum or Plasma 21.0-31.0 [facility] CO2 [Moles/Vol] 29.9 mmol/L Normal 21.0-31.0 [facility] Comment on above: Order Comment: Reaso n for Exam Generalized anxiety disorder Performed By: #### H CGQNT #### [facility] [address] [place] [address] Chloride [Moles/volume] in S sindi or PlasmaOrdered By: Shad Alamo on 02-01-2025 Chloride [Moles/Vol] Chloride [Moles/volume] in Serum or Plasma 98-107 [facility] Chloride [Moles/Vol] 103 mmol/L Normal 98-107 [facility] Comment on above: Order Comment: Reaso n for Exam Generalized anxiety disorder Performed By: #### H CGQNT #### [facility] [address] [place] [address] Complete Blood Count Auto Di ffon 02-01-2025 Mean Corpuscular HGB Conc 33.5 g/dL Normal 32.0-35.0 [facility] Comment on above: Order Comment: Reaso n for Exam Generalized anxiety disorder Performed By: #### H CGQNT #### [address] NRBC% 0.0 /100{WBC} Normal 0-0.5 [facility] Comment on above: Order Comment: Reaso n for Exam Generalized anxiety disorder Performed By: #### H CGQNT #### [address] Comprehensive Metabolic Pane ernestine 02-01-2025 Albumin [Mass/Vol] 4.6 g/dL Normal 3.5-5.7 [facility] Comment on above: Order Comment: Reaso n for Exam Generalized anxiety disorder Performed By: #### H CGQNT #### [address] GFR/1.73 sq M.predicted MDRD (S/P/Bld) [Vol rate/Area] mL/min/{1.73_m2} Normal [facility] Comment on above: Order Comment: Reaso n for Exam Generalized anxiety disorder Performed By: #### H CGQNT #### [address] Creatinine [Mass/volume] in Serum or PlasmaOrdered By: Shad Alamo on 02-01-2025 Creatinine [Mass/Vol] Creatinine [Mass/volume] in Serum or Plasma 0.60-1.20 [facility] Creatinine [Mass/Vol] 0.73 mg/dL Normal 0.60-1.20 [facility] Comment on above: Order Comment: Reaso n for Exam Generalized anxiety disorder Performed By: #### H CGQNT #### [place] [address] [place] Eosinophils Auto (Bld) [#/Vo l]Ordered By: Shad Alamo on 02-01-2025 Eosinophils (Bld) [#/Vol] Automated eosinophil count 0.0-0.45 [facility] Eosinophils [#/volume] in Bl ood by Automated countOrdered By: Shad Alamo on 02-01-2025 Eosinophils (Bld) [#/Vol] 0.1 10*3/uL Normal 0.0-0.45 [facility] Comment on above: Order Comment: Reaso n for Exam Generalized anxiety disorder Performed By: #### H CGQNT #### [address] Eosinophils/100 WBC Auto (Bl d)Ordered By: Shad Alamo on 02-01-2025 Eosinophils/100 WBC (Bld) Automated eosinophil % . [facility] Eosinophils/100 leukocytes i n Blood by Automated countOrdered By: Shad Alamo on 02-01-2025 Eosinophils/100 WBC (Bld) 0.6 % Normal . [facility] Comment on above: Order Comment: Reaso n for Exam Generalized anxiety disorder Performed By: #### H CGQNT #### [address] Erythrocyte distribution wid th Auto (RBC) [Ratio]Ordered By: Shad Alamo on 02-01-2025 Erythrocyte distribution width (RBC) [Ratio] Erythrocyte distribution width [Ratio] by Automated count 11.9-15.3 [facility] Erythrocyte distribution wid th [Ratio] by Automated countOrdered By: Shad Alamo on 02-01-2025 Erythrocyte distribution width (RBC) [Ratio] 14.9 % Normal 11.9-15.3 [facility] Comment on above: Order Comment: Reaso n for Exam Generalized anxiety disorder Performed By: #### H CGQNT #### [address] Erythrocytes [#/volume] in B lood by Automated countOrdered By: Shad Alamo on 02-01-2025 RBC (Bld) [#/Vol] 4.40 10*6/uL Normal 3.60-5.00 [facility] Comment on above: Order Comment: Reaso n for Exam Generalized anxiety disorder Performed By: #### H CGQNT #### [address] Globulin Calc (S) [Mass/Vol] Ordered By: Shad Alamo on 02-01-2025 Globulin (S) [Mass/Vol] Serum globulin measurement by calculation (mass/volume) [facility] Glucose [Mass/volume] in Ser um or PlasmaOrdered By: Shad Alamo on 02-01-2025 Glucose [Mass/Vol] Glucose [Mass/volume ] in Serum or Plasma 70-100 [facility] Comment on above: ADA recommended refe rence rangeRandom Glucose Reference Range is dependent on time and content of last meal. Glucose of more than 200 mg/dL in a nonstressed, ambulatory subject supports the diagnosis of Diabetes Mellitus. Glucose [Mass/Vol] 94 mg/dL Normal 70-100 [facility] Comment on above: ADA recommended refe rence rangeRandom Glucose Reference Range is dependent on time and content of last meal. Glucose of more than 200 mg/dL in a nonstressed, ambulatory subject supports the diagnosis of Diabetes Mellitus. Order Comment: Reaso n for Exam Generalized anxiety disorder Result Comment: [place] om Glucose Reference Range is dependent on time and content of last meal. Glucose of more than 200 mg/dL in a nonstressed, ambulatory subject supports the diagnosis of Diabetes Mellitus. ADA recommended reference range Performed By: #### H CGQNT #### [address] Hematocrit Auto (Bld) [Volum e fraction]Ordered By: Shad Alamo on 02-01-2025 Hematocrit (Bld) [Volume fraction] Hematocrit [Volume Fraction] of Blood by Automated count 34.0-46.4 [facility] Hematocrit [Volume Fraction] of Blood by Automated countOrdered By: Shad Alamo on 02-01-2025 Hematocrit (Bld) [Volume fraction] 38.6 % Normal 34.0-46.4 [facility] Comment on above: Order Comment: Reaso n for Exam Generalized anxiety disorder Performed By: #### H CGQNT #### [address] Hemoglobin [Mass/volume] in BloodOrdered By: Shad Alamo on 02-01-2025 Hemoglobin (Bld) [Mass/Vol] Hemoglobin [Mass/volume] in Blood 11.8-15.4 [facility] Hemoglobin (Bld) [Mass/Vol] 12.9 g/dL Normal 11.8-15.4 [facility] Comment on above: Order Comment: Reaso n for Exam Generalized anxiety disorder Performed By: #### H CGQNT #### [address] [place] [address] [place] Leukocytes [#/volume] correc lashon for nucleated erythrocytes in Blood by Automated counOrdered By: Shad Alamo on 02-01-2025 WBC corrected for nucl RBC Auto (Bld) [#/Vol] Leukocytes [#/volume] corrected for nucleated erythrocytes in Blood by Automated coun 3.8-11.6 [facility] WBC corrected for nucl RBC Auto (Bld) [#/Vol] 8.2 10*3/uL 3.8-11.6 [facility] Leukocytes [#/volume] in Blo od by Automated countOrdered By: Shad Alamo on 02-01-2025 WBC (Bld) [#/Vol] 8.2 10*3/uL Normal 3.8-11.6 [facility] Comment on above: Order Comment: Reaso n for Exam Generalized anxiety disorder Performed By: #### H CGQNT #### [address] Lymphocytes Auto (Bld) [#/Vo l]Ordered By: Shad Alamo on 02-01-2025 Lymphocytes (Bld) [#/Vol] Lymphocytes [#/volume] in Blood by Automated count 1.00-4.8 [facility] Lymphocytes [#/volume] in Bl ood by Automated countOrdered By: Shad Alamo on 02-01-2025 Lymphocytes (Bld) [#/Vol] 2.9 10*3/uL Normal 1.00-4.8 [facility] Comment on above: Order Comment: Reaso n for Exam Generalized anxiety disorder Performed By: #### H CGQNT #### [address] Lymphocytes/100 WBC Auto (Bl d)Ordered By: Shad Alamo on 02-01-2025 Lymphocytes/100 WBC (Bld) Lymphocytes/100 leukocytes in Blood by Automated count . [facility] Lymphocytes/100 leukocytes i n Blood by Automated countOrdered By: Shad Alamo on 02-01-2025 Lymphocytes/100 WBC (Bld) 35.2 % Normal . [facility] Comment on above: Order Comment: Reaso n for Exam Generalized anxiety disorder Performed By: #### H CGQNT #### [facility] [address] MCH Auto (RBC) [Entitic mass ]Ordered By: Shad Alamo on 02-01-2025 MCH (RBC) [Entitic mass] MCH [Entitic ma ss] by Automated count 24.7-34.3 [facility] MCH [Entitic mass] by Automa lashon countOrdered By: Shad Alamo on 02-01-2025 MCH (RBC) [Entitic mass] 29.4 pg Normal 24.7-34.3 [facility] Comment on above: Order Comment: Reaso n for Exam Generalized anxiety disorder Performed By: #### H CGQNT #### [address] MCHC Auto (RBC) [Mass/Vol]Or dered By: Shad Alamo on 02-01-2025 MCHC (RBC) [Mass/Vol] MCHC [Mass/volume] by Automated count 32.0-35.0 [facility] MCHC (RBC) [Mass/Vol] 33.5 g/dL 32.0-35.0 [facility] MCV Auto (RBC) [Entitic vol] Ordered By: Shad Alamo on 02-01-2025 MCV (RBC) [Entitic vol] MCV [Entitic vol ume] by Automated count 80-100 [facility] MCV [Entitic volume] by Auto mated countOrdered By: Shad Alamo on 02-01-2025 MCV (RBC) [Entitic vol] 87.7 fL Normal 80-100 [facility] Comment on above: Order Comment: Reaso n for Exam Generalized anxiety disorder Performed By: #### H CGQNT #### [address] Monocytes Auto (Bld) [#/Vol] Ordered By: Shad Alamo on 02-01-2025 Monocytes (Bld) [#/Vol] Automated blood monocyte count 0.0-0.8 [facility] Monocytes [#/volume] in Bloo d by Automated countOrdered By: Shad Alamo on 02-01-2025 Monocytes (Bld) [#/Vol] 0.5 10*3/uL Normal 0.0-0.8 [facility] Comment on above: Order Comment: Reaso n for Exam Generalized anxiety disorder Performed By: #### H CGQNT #### [address] Monocytes/100 WBC Auto (Bld) Ordered By: Shad Alamo on 02-01-2025 Monocytes/100 WBC (Bld) Automated monocyte % . [facility] Monocytes/100 leukocytes in Blood by Automated countOrdered By: Shad Alamo on 02-01-2025 Monocytes/100 WBC (Bld) 5.8 % Normal . [facility] Comment on above: Order Comment: Reaso n for Exam Generalized anxiety disorder Performed By: #### H CGQNT #### [address] Neutrophils Auto (Bld) [#/Vo l]Ordered By: Shad Alamo on 02-01-2025 Neutrophils (Bld) [#/Vol] Neutrophils [#/volume] in Blood by Automated count 1.8-7.7 [facility] Neutrophils [#/volume] in Bl ood by Automated countOrdered By: Shad Alamo on 02-01-2025 Neutrophils (Bld) [#/Vol] 4.7 10*3/uL Normal 1.8-7.7 [facility] Comment on above: Order Comment: Reaso n for Exam Generalized anxiety disorder Performed By: #### H CGQNT #### [address] Neutrophils/100 WBC Auto (Bl d)Ordered By: Shad Alamo on 02-01-2025 Neutrophils/100 WBC (Bld) Automated neutrophil % . [facility] Neutrophils/100 leukocytes i n Blood by Automated countOrdered By: Shad Alamo on 02-01-2025 Neutrophils/100 WBC (Bld) 57.5 % Normal . [facility] Comment on above: Order Comment: Reaso n for Exam Generalized anxiety disorder Performed By: #### H CGQNT #### [address] No Panel InformationOrdered By: Shad Alamo on 02-01-2025 Estimated GFR (CKD-EPI) > 60.0 mL/Min [facility] Creatinine Clearance (Chem N/A [facility] Nucleated erythrocytes [Pres ence] in Blood by Automated countOrdered By: Shad Alamo on 02-01-2025 Nucleated RBC Auto Ql (Bld) Nucleated erythrocytes [Presence] in Blood by Automated count 0-0.5 [facility] Nucleated RBC Auto Ql (Bld) 0.0 /100{WBC} 0-0.5 [facility] Platelet mean volume Auto (B ld) [Entitic vol]Ordered By: Shad Alamo on 02-01-2025 Platelet mean volume (Bld) [Entitic vol] Platelet mean volume [Entitic volume] in Blood by Automated count 6.3-10.7 [facility] Platelet mean volume [Entiti c volume] in Blood by Automated countOrdered By: Shad Alamo on 02-01-2025 Platelet mean volume (Bld) [Entitic vol] 9.2 fL Normal 6.3-10.7 [facility] Comment on above: Order Comment: Reaso n for Exam Generalized anxiety disorder Performed By: #### H CGQNT #### [facility] [address] [place] [address] [place] Platelets Auto (Bld) [#/Vol] Ordered By: Shad Alamo on 02-01-2025 Platelets (Bld) [#/Vol] Platelets [#/vol ume] in Blood by Automated count 150-450 [facility] Platelets [#/volume] in Bloo d by Automated countOrdered By: Shad Alamo on 02-01-2025 Platelets (Bld) [#/Vol] 376 10*3/uL Normal 150-450 [facility] Comment on above: Order Comment: Reaso n for Exam Generalized anxiety disorder Performed By: #### H CGQNT #### [facility] [address] [place] [address] [place] Potassium [Moles/volume] in Serum or PlasmaOrdered By: Shad Alamo on 02-01-2025 Potassium [Moles/Vol] Potassium [Moles/volume] in Serum or Plasma 3.5-5.1 [facility] Potassium [Moles/Vol] 4.2 mmol/L Normal 3.5-5.1 [facility] Comment on above: Order Comment: Reaso n for Exam Generalized anxiety disorder Performed By: #### H CGQNT #### [address] Protein [Mass/volume] in Ser um or PlasmaOrdered By: Shad Alamo on 02-01-2025 Protein [Mass/Vol] Protein [Mass/volume ] in Serum or Plasma 6.4-8.9 [facility] Protein [Mass/Vol] 7.6 g/dL Normal 6.4-8.9 [facility] Comment on above: Order Comment: Reaso n for Exam Generalized anxiety disorder Performed By: #### H CGQNT #### [address] RBC Auto (Bld) [#/Vol]Ordere d By: Shad Alamo on 02-01-2025 RBC (Bld) [#/Vol] Erythrocytes [#/volume] in Blood by Automated count 3.60-5.00 [facility] Serum globulin measurement b y calculation (mass/volume)Ordered By: Shad Alamo on 02-01-2025 Globulin (S) [Mass/Vol] 3.0 g/dL Normal [facility] Comment on above: Order Comment: Reaso n for Exam Generalized anxiety disorder Performed By: #### H CGQNT #### [facility] [address] [place] [address] Serum or plasma albumin/glob ulin mass ratioOrdered By: Shad Alamo on 02-01-2025 Albumin/Globulin [Mass ratio] Serum or plasma albumin/globulin mass ratio [facility] Albumin/Globulin [Mass ratio] 1.5 {ratio} Normal [facility] Comment on above: Order Comment: Reaso n for Exam Generalized anxiety disorder Performed By: #### H CGQNT #### [address] Serum or plasma anion gap de terminationOrdered By: Shad Alamo on 02-01-2025 Anion gap [Moles/Vol] Serum or plasma an ion gap determination 6.0-15.0 [facility] Anion gap [Moles/Vol] 7.3 mmol/L Normal 6.0-15.0 [facility] Comment on above: Order Comment: Reaso n for Exam Generalized anxiety disorder Performed By: #### H CGQNT #### [facility] [address] [place] [address] [place] Sodium [Moles/volume] in Ser um or PlasmaOrdered By: Shad Alamo on 02-01-2025 Sodium [Moles/Vol] Sodium [Moles/volume ] in Serum or Plasma 136-145 [facility] Sodium [Moles/Vol] 136 mmol/L Normal 136-145 [facility] Comment on above: Order Comment: Reaso n for Exam Generalized anxiety disorder Performed By: #### H CGQNT #### [facility] [address] [place] [address] Thyroid Stim Hormone w/Rflxo n 02-01-2025 Thyroid Stim Hormone w/Rflx 0.38 u[iU]/mL Low 0.45-5.33 [facility] Comment on above: Order Comment: Reaso n for Exam Generalized anxiety disorder Result Comment: PERF ORMED BY: [place] [address] PATHOLOGIST TEACHER ASSISTANT JEAN CARLOS LYNN M.D. Performed By: #### H CGQNT #### [facility] [address] [place] [address] Thyrotropin [Units/volume] i n Serum or PlasmaOrdered By: Shad Alamo on 02-01-2025 TSH Qn Thyrotropin [Units/volume] in Serum or Plasma Low 0.45-5.33 [facility] TSH Qn 0.38 m[IU]/L Low 0.45-5.33 [facility] Thyroxine (T4) free [Mass/vo lume] in Serum or PlasmaOrdered By: Shad Alamo on 02-01-2025 Free T4 [Mass/Vol] Thyroxine (T4) free [Mass/volume] in Serum or Plasma 0.61-1.12 [facility] Free T4 [Mass/Vol] 0.79 ng/dL Normal 0.61-1.12 [facility] Comment on above: Order Comment: Reaso n for Exam Generalized anxiety disorder Performed By: #### H CGQNT #### [facility] [address] Urea nitrogen [Mass/volume] in Serum or PlasmaOrdered By: Shad Alamo on 02-01-2025 Urea nitrogen [Mass/Vol] Urea nitrogen [Mass/volume] in Serum or Plasma 04-14 [facility] Urea nitrogen [Mass/Vol] 13 mg/dL Normal 04-14 [facility] Comment on above: Order Comment: Reaso n for Exam Generalized anxiety disorder Performed By: #### H CGQNT #### [facility] [address] [place] [id number] [facility] WBC Auto (Bld) [#/Vol]Ordere d By: Shad Alamo on 02-01-2025 WBC (Bld) [#/Vol] Leukocytes [#/volume ] in Blood by Automated count 3.8-11.6 [facility] Urine Cultureon 09-24-2024 Bacteria identified Cx Nom (U) ORGANISM: Enterococcus faecalis (O:ENTFAC) [place] Count 40,000 Aerobic JOSE Charge (PCMIC38) --- [...] RESISTANT TO ALL B-LACTAM DRUGS. PERFORMED BY: [facility] [address] [place] [address] PATHOLOGIST TEACHER ASSISTANT JEAN CARLOS LYNN M.D. Normal [facility] Comment on above: Performed By: #### C UU #### [facility] [address] Stone Analysison 07-19-2024 Calculi description See Note [facility] Comment on above: Result Comment: (NOT E) Specimen consists of one brown and crane calculus. The total weight is 24 mg. Performed By: #### A STONE #### [facility] [address] [place] [id number] [employer] Administrator: Merrill Faulkner MD Composition See Note [facility] Comment on above: Result Comment: (NOT E) [...] composition determined by FTIR analysis. Performed By: [facility] [address] [place] [id number] Rfp Writer: Andrews Marx MD, PhD CLIA Number: [id number] Performed By: #### A STONE #### [address] [address] [employer] Administrator: Merrill Faulkner MD Mass 24 mg [facility] Comment on above: Performed By: #### A STONE #### [email or web address] [address] [place] [address] [employer] Administrator: Merrill Faulkner MD FLUORO FOR SURGICAL PROCEDUR ESon 07-14-2024 FLUORO FOR SURGICAL PROCEDURES Radiology exam is complete. No Radiologist dictation. Please follow up with ordering provider. Final result Normal [facility] HCG, ,Urineon 07-14 Beta HCG ( test) Ql (U) Negative Normal NEG [facility] Comment on above: Result Comment: Spec imens with hCG levels near the threshold of the test (25 mIU/mL) may give a negative or indeterminate result. In such cases, another test should be performed with a new specimen in 48-72 hours. If early is suspected clinically in this setting, correlation with quantitative serum b-hCG level is suggested. [facility] has confirmed the use of plasma for this test. This has not been cleared or approved by the U.S. Food and Drug Administration. The FDA has determined that such clearance is not necessary. Performed By: #### U HCG #### [facility] [address] [place] [address] [place]. [place], [place] [id number] [employer] Administrator: Ganesh Newman MD Alanine aminotransferase [En zymatic activity/volume] in Serum or PlasmaOrdered By: Felix Simpson on 07-11-2024 ALT [Catalytic activity/Vol] 30 U/L Normal [facility] Comment on above: Performed By: #### H EPATIC, LIPASE, BMP, CBC #### [facility] [address] [place] [address] ALT [Catalytic activity/Vol] Alanine aminotransferase [Enzymatic activity/volume] in Serum or Plasma [facility] Albumin [Mass/volume] in Ser um or Plasma by Bromocresol green (BCG) dye binding methoOrdered By: Felix Simpson on 07-11-2024 Albumin BCG dye [Mass/Vol] 4.6 g/dL 3.5-5.7 [facility] Albumin BCG dye [Mass/Vol] Albumin [Mass/volume] in Serum or Plasma by Bromocresol green (BCG) dye binding metho 3.5-5.7 [facility] Alkaline phosphatase [Enzyma tic activity/volume] in Serum or PlasmaOrdered By: Felix Simpson on 07-11-2024 ALP [Catalytic activity/Vol] 58 U/L Normal [facility] Comment on above: Performed By: #### H EPATIC, LIPASE, BMP, CBC #### [facility] [address] [place] [address] [facility] ALP [Catalytic activity/Vol] Alkaline phosphatase [Enzymatic activity/volume] in Serum or Plasma [facility] Appearance of UrineOrdered B y: Felix Simpson on 10-21-2024 Appearance (U) Urine appearance Abnormal Clear [facility] Aspartate aminotransferase [ Enzymatic activity/volume] in Serum or PlasmaOrdered By: Felix Simpson on 07-11-2024 AST [Catalytic activity/Vol] 24 U/L Normal [facility] Comment on above: Performed By: #### H EPATIC, LIPASE, BMP, CBC #### [address] AST [Catalytic activity/Vol] Aspartate aminotransferase [Enzymatic activity/volume] in Serum or Plasma [facility] Automated basophil %Ordered By: Felix Simpson on 07-11-2024 Basophils/100 WBC (Bld) 0.6 % Normal . [facility] Comment on above: Performed By: #### H EPATIC, LIPASE, BMP, CBC #### [address] Automated basophil countOrde red By: Felix Simpson on 07-11-2024 Basophils (Bld) [#/Vol] 0.1 10*3/uL Normal 0.0-0.2 [facility] Comment on above: Result Comment: PERF ORMED BY: [place] [address] PATHOLOGIST TEACHER ASSISTANT WARREN BUSTAMANTE M.D. Performed By: #### H EPATIC, LIPASE, BMP, CBC #### [address] Automated blood monocyte cou ntOrdered By: Felix Simpson on 07-11-2024 Monocytes (Bld) [#/Vol] 0.9 10*3/uL High 0.0-0.8 [facility] Comment on above: Performed By: #### H EPATIC, LIPASE, BMP, CBC #### [address] Automated eosinophil %Ordere d By: Felix Simpson on 07-11-2024 Eosinophils/100 WBC (Bld) 0.6 % Normal . [facility] Comment on above: Performed By: #### H EPATIC, LIPASE, BMP, CBC #### [address] Automated eosinophil countOr dered By: Felix Simpson on 07-11-2024 Eosinophils (Bld) [#/Vol] 0.1 10*3/uL Normal 0.0-0.45 [facility] Comment on above: Performed By: #### H EPATIC, LIPASE, BMP, CBC #### [address] Automated monocyte %Ordered By: Felix Simpson on 07-11-2024 Monocytes/100 WBC (Bld) 10.5 % Normal . [facility] Comment on above: Performed By: #### H EPATIC, LIPASE, BMP, CBC #### [address] Automated neutrophil %Ordere d By: Felix Simpson on 07-11-2024 Neutrophils/100 WBC (Bld) 63.3 % Normal . [facility] Comment on above: Performed By: #### H EPATIC, LIPASE, BMP, CBC #### [address] Bacteria [Presence] in Urine by AutomatedOrdered By: Felix Simpson on 07-11-2024 Bacteria Auto Ql (U) Rare [HPF] None Seen [facility] Bacteria Auto Ql (U) Bacteria [Presence] in Urine by Automated None Seen [facility] Basic Metabolic Panelon 06-22 Creatinine Clr Calc Pharmacy 123.53 Normal [facility] Comment on above: Performed By: #### H EPATIC, LIPASE, BMP, CBC #### [address] GFR/1.73 sq M.predicted MDRD (S/P/Bld) [Vol rate/Area] mL/min/{1.73_m2} Normal [facility] Comment on above: Performed By: #### H EPATIC, LIPASE, BMP, CBC #### [address] Basophils Auto (Bld) [#/Vol] Ordered By: Felix Simpson on 07-11-2024 Basophils (Bld) [#/Vol] Automated basoph il count 0.0-0.2 [facility] Basophils/100 WBC Auto (Bld) Ordered By: Felix Simpson on 07-11-2024 Basophils/100 WBC (Bld) Automated basophil % . [facility] Bilirubin Test strip Ql (U)O rdered By: Felix Simpson on 07-11-2024 Bilirubin Ql (U) Negative Negative [facility] Bilirubin Ql (U) Bilirubin.total [Presence] in Urine by Test strip Negative [facility] Bilirubin.direct [Mass/volum e] in Serum or PlasmaOrdered By: Felix Simpson on 07-11-2024 Bilirubin.direct [Mass/Vol] 0.20 mg/dL High 0.03-0.18 [facility] Bilirubin.direct [Mass/Vol] Bilirubin.direct [Mass/volume] in Serum or Plasma High 0.03-0.18 [facility] Bilirubin.total [Mass/volume ] in Serum or PlasmaOrdered By: Felix Simpson on 07-11-2024 Bilirubin [Mass/Vol] 0.9 mg/dL Normal 0.3-1.0 [facility] Comment on above: Performed By: #### H EPATIC, LIPASE, BMP, CBC #### [facility] [address] Bilirubin [Mass/Vol] Bilirubin.total [Mass/volume] in Serum or Plasma 0.3-1.[address] [facility] [address] abdomen pelvis wo conon 1 CT abdomen pelvis wo con [facility] [place] [address] [place] [address] CT Scan Report Signed Patient: Beatris Mack MR#: [id number] : 2000 Acct:[id number] Age/Sex: 24 / F ADM Date: 07/11/24 Loc: ER Room: Type: [facility] ER Attending Dr: Copies to: Felxi Simpson DO Ordering Provider: Felix Simpson DO [...] Gayle Knox M.D.07/11/2024 3:17 PM Dictation Location: [place] [address] Transcribed By: [facility] 07/11/241516 Dictated By: Gayle Knox II, MD 07/11/241510 Signed By: 07/11/241516 Normal [facility] Calcium [Mass/volume] in Ser um or PlasmaOrdered By: Felix Simpson on 07-11-2024 Calcium [Mass/Vol] 10.0 mg/dL Normal 8.6-10.3 [facility] Comment on above: Performed By: #### H EPATIC, LIPASE, BMP, CBC #### [facility] [address] Calcium [Mass/Vol] Calcium [Mass/volume ] in Serum or Plasma 8.6-10.3 [facility] Carbon dioxide, total [Moles /volume] in Serum or PlasmaOrdered By: Felix Simpson on 07-11-2024 CO2 [Moles/Vol] 24.2 mmol/L Normal 21.0-31.0 [facility] Comment on above: Performed By: #### H EPATIC, LIPASE, BMP, CBC #### [facility] [address] CO2 [Moles/Vol] Carbon dioxide, tota l [Moles/volume] in Serum or Plasma 21.0-31.0 [facility] Chloride [Moles/volume] in S sindi or PlasmaOrdered By: Felix Simpson on 07-11-2024 Chloride [Moles/Vol] 104 mmol/L Normal 98-107 [facility] Comment on above: Performed By: #### H EPATIC, LIPASE, BMP, CBC #### [address] Chloride [Moles/Vol] Chloride [Moles/volume] in Serum or Plasma 98-107 [facility] Color Auto (U)Ordered By: Drew Simpson on 07-11-2024 Color (U) Color of Urine by Auto Yellow [facility] Color of Urine by AutoOrdere d By: Felix Simpson on 07-11-2024 Color (U) Yellow Normal Yellow [facility] Comment on above: Order Comment: Name Collection Type:: Clean-Voided Midstream Performed By: #### U HCG, ADDONUAPLUS #### [facility] [address] Complete Blood Count Auto Di ffon 07-11-2024 Mean Corpuscular HGB Conc 33.2 g/dL Normal 32.0-35.0 [facility] Comment on above: Performed By: #### H EPATIC, LIPASE, BMP, CBC #### [facility] [address] [place] [address] [place] Monocytes/100 WBC (Bld) 16.73 % Normal 0.00-20.00 [facility] Comment on above: Performed By: #### H EPATIC, LIPASE, BMP, CBC #### [facility] [address] [place] [address] NRBC% 0.0 /100{WBC} Normal 0-0.5 [facility] Comment on above: Performed By: #### H EPATIC, LIPASE, BMP, CBC #### [address] Creatinine [Mass/volume] in Serum or PlasmaOrdered By: Felix Simpson on 07-11-2024 Creatinine [Mass/Vol] 0.77 mg/dL Normal 0.60-1.20 [facility] Comment on above: Performed By: #### H EPATIC, LIPASE, BMP, CBC #### [address] Creatinine [Mass/Vol] Creatinine [Mass/volume] in Serum or Plasma 0.60-1.20 [facility] Crystals [Presence] in Urine by AutomatedOrdered By: Felix Simpson on 07-11-2024 Crystals Auto Ql (U) 2+ [HPF] [facility] Crystals Auto Ql (U) Crystals [Presence] in Urine by Automated [facility] Dipstick and Microscopicon 1 Bacteria,Urine Rare Normal None Seen [facility] Comment on above: Order Comment: Name Collection Type:: Clean-Voided Midstream Performed By: #### U HCG, ADDONUAPLUS #### [address] Bilirubin,Urine Negative Normal Negative [facility] Comment on above: Order Comment: Name Collection Type:: Clean-Voided Midstream Performed By: #### U HCG, ADDONUAPLUS #### [address] Glucose Ql (U) Normal Normal Normal [facility] Comment on above: Order Comment: Name Collection Type:: Clean-Voided Midstream Performed By: #### U HCG, ADDONUAPLUS #### [address] [place] [address] [place] Hyaline Casts,Urine None Normal 0-8 [facility] Comment on above: Order Comment: Name Collection Type:: Clean-Voided Midstream Performed By: #### U HCG, ADDONUAPLUS #### [address] Mucus,Urine 3+ Critically abnormal [facility] Comment on above: Order Comment: Name Collection Type:: Clean-Voided Midstream Performed By: #### U HCG, ADDONUAPLUS #### [place] [address] [place] Nitrite,Urine Negative Normal Negative [facility] Comment on above: Order Comment: Name Collection Type:: Clean-Voided Midstream Performed By: #### U HCG, ADDONUAPLUS #### [address] Occult Blood,Urine 3+ High Negative [facility] Comment on above: Order Comment: Name Collection Type:: Clean-Voided Midstream Performed By: #### U HCG, ADDONUAPLUS #### [place] [address] [place] Othe Crystals,Urine 2+ Normal [facility] Comment on above: Order Comment: Name Collection Type:: Clean-Voided Midstream Performed By: #### U HCG, ADDONUAPLUS #### [place] [address] [place] RBC,Urine Innumerable High 0-4 [facility] Comment on above: Order Comment: Name Collection Type:: Clean-Voided Midstream Performed By: #### U HCG, ADDONUAPLUS #### [facility] [address] [place] [address] [place] Specificy [place],Urine 1.032 High 1.001-1.030 [facility] Comment on above: Order Comment: Name Collection Type:: Clean-Voided Midstream Performed By: #### U HCG, ADDONUAPLUS #### [place] [address] [place] Squamous Epithelial Cell,Urine 5-9 High 0-2 [facility] Comment on above: Order Comment: Name Collection Type:: Clean-Voided Midstream Performed By: #### U HCG, ADDONUAPLUS #### [facility] [address] [place] [address] Urobilinogen,Urine Normal Normal Normal [facility] Comment on above: Order Comment: Name Collection Type:: Clean-Voided Midstream Performed By: #### U HCG, ADDONUAPLUS #### [facility] [address] [place] [address] WBC CLUMP, Urine Occasional High None Seen [facility] Comment on above: Order Comment: Name Collection Type:: Clean-Voided Midstream Performed By: #### U HCG, ADDONUAPLUS #### [facility] [address] [place] [address] WBC,Urine 10-19 High 0-4 [facility] Comment on above: Order Comment: Name Collection Type:: Clean-Voided Midstream Performed By: #### U HCG, ADDONUAPLUS #### [facility] [address] [place] [address] Eosinophils Auto (Bld) [#/Vo l]Ordered By: Felix Simpson on 07-11-2024 Eosinophils (Bld) [#/Vol] Automated eosinophil count 0.0-0.45 [facility] Eosinophils/100 WBC Auto (Bl d)Ordered By: Felix Simpson on 07-11-2024 Eosinophils/100 WBC (Bld) Automated eosinophil % . [facility] Epithelial cells.squamous [# /area] in Urine sediment by Automated countOrdered By: Felix Simpson on 07-11-2024 Epithelial cells.squamous Auto (Urine sed) [#/Area] 5-9 [HPF] High 0-2 [facility] Epithelial cells.squamous Auto (Urine sed) [#/Area] Epithelial cells.squamous [#/area] in Urine sediment by Automated count High 0-2 [facility] Erythrocyte distribution wid th Auto (RBC) [Ratio]Ordered By: Felix Simpson on 07-11-2024 Erythrocyte distribution width (RBC) [Ratio] Erythrocyte distribution width [Ratio] by Automated count 11.9-15.3 [facility] Erythrocyte distribution wid th [Ratio] by Automated countOrdered By: Felix Simpson on 07-11-2024 Erythrocyte distribution width (RBC) [Ratio] 14.7 % Normal 11.9-15.3 [facility] Comment on above: Performed By: #### H EPATIC, LIPASE, BMP, CBC #### [facility] [address] Erythrocytes [#/area] in Uri ne sediment by Automated countOrdered By: Felix Simpson on 07-11-2024 RBC Auto (Urine sed) [#/Area] Innumerable [HPF] High 0-4 [facility] RBC Auto (Urine sed) [#/Area] Erythrocytes [#/area] in Urine sediment by Automated count High 0-4 [facility] Erythrocytes [#/volume] in B lood by Automated countOrdered By: Felix Simpson on 07-11-2024 RBC (Bld) [#/Vol] 4.30 10*6/uL Normal 3.60-5.00 [facility] Comment on above: Performed By: #### H EPATIC, LIPASE, BMP, CBC #### [address] Globulin Calc (S) [Mass/Vol] Ordered By: Felix Simpson on 07-11-2024 Globulin (S) [Mass/Vol] Serum globulin measurement by calculation (mass/volume) [facility] Glucose [Mass/volume] in Ser um or PlasmaOrdered By: Felix Simpson on 07-11-2024 Glucose [Mass/Vol] 91 mg/dL Normal 70-100 [facility] Comment on above: ADA recommended refe rence rangeRandom Glucose Reference Range is dependent on time and content of last meal. Glucose of more than 200 mg/dL in a nonstressed, ambulatory subject supports the diagnosis of Diabetes Mellitus. Result Comment: [place] om Glucose Reference Range is dependent on time and content of last meal. Glucose of more than 200 mg/dL in a nonstressed, ambulatory subject supports the diagnosis of Diabetes Mellitus. ADA recommended reference range Performed By: #### H EPATIC, LIPASE, BMP, CBC #### [facility] [address] [place] [address] Glucose [Mass/Vol] Glucose [Mass/volume ] in Serum or Plasma 70-100 [facility] Comment on above: ADA recommended refe rence rangeRandom Glucose Reference Range is dependent on time and content of last meal. Glucose of more than 200 mg/dL in a nonstressed, ambulatory subject supports the diagnosis of Diabetes Mellitus. Glucose [Mass/volume] in Uri ne by Test stripOrdered By: Felix Simpson on 07-11-2024 Glucose Test strip (U) [Mass/Vol] Normal mg/dL Normal [facility] Glucose Test strip (U) [Mass/Vol] Glucose [Mass/volume] in Urine by Test strip Normal [facility] HCG ( test) [place].rapi d Ql (U)Ordered By: Felix Simpson on 07-11-2024 HCG ( test) Ql (U) Negative [facility] HCG ( test) Ql (U) Urine human chorionic gonadotropin (hCG) detection by immunoassay [facility] HCG,Urineon 07-11-2024 Beta HCG ( test) Ql (U) Negative Normal [facility] Comment on above: Order Comment: Name Collection Type:: Clean-Voided Midstream Result Comment: PERF ORMED BY: [place] [address] PATHOLOGIST [employer] WARREN BUSTAMANTE M.D. Performed By: #### U HCG, ADDONUAPLUS #### [facility] [address] [place] [address] Hematocrit Auto (Bld) [Volum e fraction]Ordered By: Felix Simpson on 07-11-2024 Hematocrit (Bld) [Volume fraction] Hematocrit [Volume Fraction] of Blood by Automated count 34.0-46.4 [facility] Hematocrit [Volume Fraction] of Blood by Automated countOrdered By: Felix Simpson on 07-11-2024 Hematocrit (Bld) [Volume fraction] 38.2 % Normal 34.0-46.4 [facility] Comment on above: Performed By: #### H EPATIC, LIPASE, BMP, CBC #### [facility] [address] Hemoglobin Test strip Ql (U) Ordered By: Felix Simpson on 07-11-2024 Hemoglobin Ql (U) 3+ High Negative [facility] Hemoglobin Ql (U) Hemoglobin [Presence ] in Urine by Test strip High Negative [facility] Hemoglobin [Mass/volume] in BloodOrdered By: Felix Simpson on 07-11-2024 Hemoglobin (Bld) [Mass/Vol] 12.7 g/dL Normal 11.8-15.4 [facility] Comment on above: Performed By: #### H EPATIC, LIPASE, BMP, CBC #### [address] Hemoglobin (Bld) [Mass/Vol] Hemoglobin [Mass/volume] in Blood 11.8-15.4 [facility] Hepatic Panelon 07-11-2024 Albumin [Mass/Vol] 4.6 g/dL Normal 3.5-5.7 [facility] Comment on above: Performed By: #### H EPATIC, LIPASE, BMP, CBC #### [address] Bilirubin,Indirect 0.7 mg/dL Normal [facility] Comment on above: Performed By: #### H EPATIC, LIPASE, BMP, CBC #### [address] Bilirubin.indirect [Mass/Vol] 0.20 mg/dL High 0.03-0.18 [facility] Comment on above: Performed By: #### H EPATIC, LIPASE, BMP, CBC #### [address] Hyaline casts [#/area] in Ur ine sediment by Automated countOrdered By: Felix Simpson on 07-11-2024 Hyaline casts Auto (Urine sed) [#/Area] None [LPF] 0-8 [facility] Hyaline casts Auto (Urine sed) [#/Area] Hyaline casts [#/area] in Urine sediment by Automated count 0-8 [facility] Ketones Test strip Ql (U)Ord ered By: Felix Simpson on 07-11-2024 Ketones Ql (U) Ketones [Presence] i n Urine by Test strip High Negative [facility] Ketones [Presence] in Urine by Test stripOrdered By: Felix Simpson on 07-11-2024 Ketones Ql (U) 3+ High Negative [facility] Comment on above: Order Comment: Name Collection Type:: Clean-Voided Midstream Performed By: #### U HCG, ADDONUAPLUS #### [facility] [address] [place] [address] Leukocyte clumps [Presence] in Urine by AutomatedOrdered By: Felix Simpson on 07-11-2024 Leukocyte clumps Auto Ql (U) Occasional [LPF] High None Seen [facility] Leukocyte clumps Auto Ql (U) Leukocyte clumps [Presence] in Urine by Automated High None Seen [facility] Leukocyte esterase [Presence ] in Urine by Test stripOrdered By: Felix Simpson on 07-11-2024 Leukocyte esterase Test strip Ql (U) Negative Normal Negative [facility] Comment on above: Order Comment: Name Collection Type:: Clean-Voided Midstream Performed By: #### U HCG, ADDONUAPLUS #### [facility] [address] [place] [address] Leukocyte esterase Test strip Ql (U) Leukocyte esterase [Presence] in Urine by Test strip Negative [facility] Leukocytes [#/area] in Urine sediment by Automated countOrdered By: Felix Simpson on 07-11-2024 WBC Auto (Urine sed) [#/Area] 10-19 [HPF] High 0-4 [facility] WBC Auto (Urine sed) [#/Area] Leukocytes [#/area] in Urine sediment by Automated count High 0-4 [facility] Leukocytes [#/volume] correc lashon for nucleated erythrocytes in Blood by Automated counOrdered By: Felix Simpson on 07-11-2024 WBC corrected for nucl RBC Auto (Bld) [#/Vol] 8.8 10*3/uL 3.8-11.6 [facility] WBC corrected for nucl RBC Auto (Bld) [#/Vol] Leukocytes [#/volume] corrected for nucleated erythrocytes in Blood by Automated coun 3.8-11.6 [facility] Leukocytes [#/volume] in Blo od by Automated countOrdered By: Felix Simpson on 07-11-2024 WBC (Bld) [#/Vol] 8.8 10*3/uL Normal 3.8-11.6 [facility] Comment on above: Performed By: #### H EPATIC, LIPASE, BMP, CBC #### [address] Lipase [Enzymatic activity/v olume] in Serum or PlasmaOrdered By: Felix Simpson on 07-11-2024 Lipase [Catalytic activity/Vol] 26.0 U/L Normal 11.0-82.0 [facility] Comment on above: Result Comment: PERF ORMED BY: [place] [address] PATHOLOGIST [employer] WARREN BUSTAMANTE M.D. Performed By: #### H EPATIC, LIPASE, BMP, CBC #### [address] Lipase [Catalytic activity/Vol] Lipase [Enzymatic activity/volume] in Serum or Plasma 11.0-82.0 [facility] Lymphocytes Auto (Bld) [#/Vo l]Ordered By: Felix Simpson on 07-11-2024 Lymphocytes (Bld) [#/Vol] Lymphocytes [#/volume] in Blood by Automated count 1.00-4.8 [facility] Lymphocytes [#/volume] in Bl ood by Automated countOrdered By: Felix Simpson on 07-11-2024 Lymphocytes (Bld) [#/Vol] 2.2 10*3/uL Normal 1.00-4.8 [facility] Comment on above: Performed By: #### H EPATIC, LIPASE, BMP, CBC #### [address] Lymphocytes/100 WBC Auto (Bl d)Ordered By: Felix Simpson on 07-11-2024 Lymphocytes/100 WBC (Bld) Lymphocytes/100 leukocytes in Blood by Automated count . [facility] Lymphocytes/100 leukocytes i n Blood by Automated countOrdered By: Felix Simpson on 07-11-2024 Lymphocytes/100 WBC (Bld) 25.0 % Normal . [facility] Comment on above: Performed By: #### H EPATIC, LIPASE, BMP, CBC #### [facility] [address] MCH Auto (RBC) [Entitic mass ]Ordered By: Felix Simpson on 07-11-2024 MCH (RBC) [Entitic mass] MCH [Entitic ma ss] by Automated count 24.7-34.3 [facility] MCH [Entitic mass] by Automa lashon countOrdered By: Felix Simpson on 07-11-2024 MCH (RBC) [Entitic mass] 29.5 pg Normal 24.7-34.3 [facility] Comment on above: Performed By: #### H EPATIC, LIPASE, BMP, CBC #### [facility] [address] MCHC Auto (RBC) [Mass/Vol]Or dered By: Felix Simpson on 07-11-2024 MCHC (RBC) [Mass/Vol] 33.2 g/dL 32.0-35.0 [facility] MCHC (RBC) [Mass/Vol] MCHC [Mass/volume] by Automated count 32.0-35.0 [facility] MCV Auto (RBC) [Entitic vol] Ordered By: Felix Simpson on 07-11-2024 MCV (RBC) [Entitic vol] MCV [Entitic vol ume] by Automated count 80-100 [facility] MCV [Entitic volume] by Auto mated countOrdered By: Felix Simpson on 07-11-2024 MCV (RBC) [Entitic vol] 88.9 fL Normal 80-100 [facility] Comment on above: Performed By: #### H EPATIC, LIPASE, BMP, CBC #### [facility] [address] Monocyte distribution width [Entitic volume] in Blood by AutomatedOrdered By: Felix Simpson on 07-11-2024 Monocyte distribution width Auto (Bld) [Entitic vol] 16.73 % 0.00-20.00 [facility] Monocyte distribution width Auto (Bld) [Entitic vol] Monocyte distribution width [Entitic volume] in Blood by Automated 0.00-20.00 [facility] Monocytes Auto (Bld) [#/Vol] Ordered By: Felix Simpson on 07-11-2024 Monocytes (Bld) [#/Vol] Automated blood monocyte count High 0.0-0.8 [facility] Monocytes/100 WBC Auto (Bld) Ordered By: Felix Simpson on 07-11-2024 Monocytes/100 WBC (Bld) Automated monocyte % . [facility] Mucus [Presence] in Urine by AutomatedOrdered By: Felix Simpson on 07-11-2024 Mucus Auto Ql (U) 3+ [LPF] Abnormal [facility] Mucus Auto Ql (U) Mucus [Presence] in Urine by Automated Abnormal [facility] Neutrophils Auto (Bld) [#/Vo l]Ordered By: Felix Simpson on 07-11-2024 Neutrophils (Bld) [#/Vol] Neutrophils [#/volume] in Blood by Automated count 1.8-7.7 [facility] Neutrophils [#/volume] in Bl ood by Automated countOrdered By: Felix Simpson on 07-11-2024 Neutrophils (Bld) [#/Vol] 5.5 10*3/uL Normal 1.8-7.7 [facility] Comment on above: Performed By: #### H EPATIC, LIPASE, BMP, CBC #### [facility] [address] Neutrophils/100 WBC Auto (Bl d)Ordered By: Felix Simpson on 07-11-2024 Neutrophils/100 WBC (Bld) Automated neutrophil % . [facility] Nitrite Test strip Ql (U)Ord ered By: Felix Simpson on 07-11-2024 Nitrite Ql (U) Negative Negative [facility] Nitrite Ql (U) Nitrite [Presence] i n Urine by Test strip Negative [facility] No Panel InformationOrdered By: Felix Simpson on 07-11-2024 Estimated GFR (CKD-EPI) > 60.0 mL/Min [facility] Creatinine Clearance (Chem 123.53 [facility] Nucleated erythrocytes [Pres ence] in Blood by Automated countOrdered By: Felix Simpson on 07-11-2024 Nucleated RBC Auto Ql (Bld) 0.0 /100{WBC} 0-0.5 [facility] Nucleated RBC Auto Ql (Bld) Nucleated erythrocytes [Presence] in Blood by Automated count 0-0.5 [facility] Platelet mean volume Auto (B ld) [Entitic vol]Ordered By: Felix Simpson on 07-11-2024 Platelet mean volume (Bld) [Entitic vol] Platelet mean volume [Entitic volume] in Blood by Automated count 6.3-10.7 [facility] Platelet mean volume [Entiti c volume] in Blood by Automated countOrdered By: Felix Simpson on 07-11-2024 Platelet mean volume (Bld) [Entitic vol] 8.8 fL Normal 6.3-10.7 [facility] Comment on above: Performed By: #### H EPATIC, LIPASE, BMP, CBC #### [facility] [address] [place] [address] Platelets Auto (Bld) [#/Vol] Ordered By: Felix Simpson on 07-11-2024 Platelets (Bld) [#/Vol] Platelets [#/vol ume] in Blood by Automated count 150-450 [facility] Platelets [#/volume] in Bloo d by Automated countOrdered By: Felix Simpson on 07-11-2024 Platelets (Bld) [#/Vol] 300 10*3/uL Normal 150-450 [facility] Comment on above: Performed By: #### H EPATIC, LIPASE, BMP, CBC #### [facility] [address] [place] [address] Potassium [Moles/volume] in Serum or PlasmaOrdered By: Felix Simpson on 07-11-2024 Potassium [Moles/Vol] 3.7 mmol/L Normal 3.5-5.1 [facility] Comment on above: Performed By: #### H EPATIC, LIPASE, BMP, CBC #### [facility] [address] [place] [address] Potassium [Moles/Vol] Potassium [Moles/volume] in Serum or Plasma 3.5-5.1 [facility] Protein Test strip (U) [Mass /Vol]Ordered By: Felix Simpson on 07-11-2024 Protein (U) [Mass/Vol] Protein [Mass/vol ume] in Urine by Test strip High Negative [facility] Protein [Mass/volume] in Ser um or PlasmaOrdered By: Felix Simpson on 07-11-2024 Protein [Mass/Vol] 7.6 g/dL Normal 6.4-8.9 [facility] Comment on above: Performed By: #### H EPATIC, LIPASE, BMP, CBC #### [address] Protein [Mass/Vol] Protein [Mass/volume ] in Serum or Plasma 6.4-8.9 [facility] Protein [Mass/volume] in Uri ne by Test stripOrdered By: Felix Simpson on 07-11-2024 Protein (U) [Mass/Vol] 50 mg/dL High Negative [facility] Comment on above: Order Comment: Name Collection Type:: Clean-Voided Midstream Performed By: #### U HCG, ADDONUAPLUS #### [address] RBC Auto (Bld) [#/Vol]Ordere d By: Felix Simpson on 07-11-2024 RBC (Bld) [#/Vol] Erythrocytes [#/volume] in Blood by Automated count 3.60-5.00 [facility] Serum globulin measurement b y calculation (mass/volume)Ordered By: Felix Simpson on 07-11-2024 Globulin (S) [Mass/Vol] 3.0 g/dL Normal [facility] Comment on above: Performed By: #### H EPATIC, LIPASE, BMP, CBC #### [facility] [address] [place] [address] Serum or plasma albumin/glob ulin mass ratioOrdered By: Felix Simpson on 07-11-2024 Albumin/Globulin [Mass ratio] 1.5 {ratio} Normal [facility] Comment on above: Performed By: #### H EPATIC, LIPASE, BMP, CBC #### [address] Albumin/Globulin [Mass ratio] Serum or plasma albumin/globulin mass ratio [facility] Serum or plasma anion gap de terminationOrdered By: Felix Simpson on 07-11-2024 Anion gap [Moles/Vol] 9.5 mmol/L Normal 6.0-15.0 [facility] Comment on above: Performed By: #### H EPATIC LIPASE, BMP, CBC #### [facility] [address] Anion gap [Moles/Vol] Serum or plasma an ion gap determination 6.0-15.0 [facility] Serum or plasma non-glucuron idated bilirubin measurement (mass/volume)Ordered By: Felix Simpson on 07-11-2024 Bilirubin.indirect [Mass/Vol] 0.7 mg/dL [facility] Bilirubin.indirect [Mass/Vol] Serum or plasma non-glucuronidated bilirubin measurement (mass/volume) [facility] Sodium [Moles/volume] in Ser um or PlasmaOrdered By: Felix Simpson on 07-11-2024 Sodium [Moles/Vol] 134 mmol/L Low 136-145 [facility] Comment on above: Performed By: #### H EPATANIYA LIPASE, BMP, CBC #### [facility] [address] Sodium [Moles/Vol] Sodium [Moles/volume ] in Serum or Plasma Low 136-145 [facility] Specific gravity Test strip (U) [Rel density]Ordered By: Felix Simpson on 07-11-2024 Specific gravity (U) [Rel density] 1.032 High 1.001-1.030 [facility] Specific gravity (U) [Rel density] Specific gravity of Urine by Test strip High 1.001-1.030 [facility] Urea nitrogen [Mass/volume] in Serum or PlasmaOrdered By: Felix Simpson on 07-11-2024 Urea nitrogen [Mass/Vol] 17 mg/dL Normal 04-14 [facility] Comment on above: Performed By: #### H EPATANIYA LIPASE, BMP, CBC #### [facility] [address] [place] [id number] [place] Urea nitrogen [Mass/Vol] Urea nitrogen [Mass/volume] in Serum or Plasma 04-14 [facility] Urine appearanceOrdered By: Felix Simpson on 07-11-2024 Appearance (U) Cloudy Critically abnormal Clear [facility] Comment on above: Order Comment: Name Collection Type:: Clean-Voided Midstream Performed By: #### U HCG, ADDONUAPLUS #### [facility] [address] Urobilinogen Test strip (U) [Mass/Vol]Ordered By: Felix Simpson on 07-11-2024 Urobilinogen (U) [Mass/Vol] Normal mg/dL Normal [facility] Urobilinogen (U) [Mass/Vol] Urobilinogen [Mass/volume] in Urine by Test strip Normal [facility] WBC Auto (Bld) [#/Vol]Ordere d By: Felix Simpson on 07-11-2024 WBC (Bld) [#/Vol] Leukocytes [#/volume ] in Blood by Automated count 3.8-11.6 [facility] pH Test strip (U)Ordered By: Felix Simpson on 07-11-2024 pH (U) pH of Urine by Test strip 5.0-9.0 [facility] pH of Urine by Test stripOrd ered By: Felix Simpson on 07-11-2024 pH (U) 6.0 [pH] Normal 5.0-9.0 [facility] Comment on above: Order Comment: Name Collection Type:: Clean-Voided Midstream Performed By: #### U HCG, ADDONUAPLUS #### [facility] [address] Automated erythrocytes count in urine sediment (number/area)Ordered By: Elias Rogers on 01-15-2024 RBC Auto (Urine sed) [#/Area] 0-1 [HPF] 0-4 [facility] Automated leukocytes count i n urine sediment (number/area)Ordered By: Elias Rogers on 01-15-2024 WBC Auto (Urine sed) [#/Area] 10-19 [HPF] 0-4 [facility] Bilirubin Test strip Ql (U)O rdered By: Elias Rogers on 01-15-2024 Bilirubin Ql (U) Negative Negative [facility] Color Auto (U)Ordered By: Cali Rogers on 01-15-2024 Color (U) Yellow Yellow [facility] HCG ( test) IA.rapi d Ql (U)Ordered By: ALEX AZUL on 01-15-2024 HCG ( test) Ql (U) Negative [facility] Ketones Auto test strip (U) [Mass/Vol]Ordered By: Elias Rogers on 01-15-2024 Ketones (U) [Mass/Vol] Trace Negative [facility] Laboratory - UrinalysisOrder ed By: Elias Rogers on 01-15-2024 Hyaline casts LM Ql (Urine sed) 0-1 [LPF] 0-8 [facility] Nitrite Test strip Ql (U)Ord ered By: Elias Rogers on 01-15-2024 Nitrite Ql (U) Negative Negative [facility] Protein Auto test strip (U) [Mass/Vol]Ordered By: Elias Rogers on 01-15-2024 Protein (U) [Mass/Vol] Negative Negative [facility] Specific gravity Auto test s trip (U) [Rel density]Ordered By: Elias Rogers on 01-15-2024 Specific gravity (U) [Rel density] 1.028 1.001-1.030 [facility] Squamous epithelial cells de tection in urine sediment by light microscopyOrdered By: Elias Rogers on 01-15-2024 Epithelial cells.squamous LM Ql (Urine sed) 5-9 [HPF] 0-2 [facility] Urine bacteria detection by automated methodOrdered By: Elias Rogers on 01-15-2024 Bacteria Auto Ql (U) 1+ None Seen [facility] Urine clarity by refractomet ry automatedOrdered By: Elias Rogers on 01-15-2024 Clarity Refractometry automated (U) Clear Clear [facility] Urine glucose measurement by automated test strip (mass/volume)Ordered By: Elias Rogers on 01-15-2024 Glucose Auto test strip (U) [Mass/Vol] Normal mg/dL Normal [facility] Urine hemoglobin detection b y automated test stripOrdered By: Elias Rogers on 01-15-2024 Hemoglobin Auto test strip Ql (U) Negative Negative [facility] Urine leukocyte esterase det ection by automated test stripOrdered By: Elias Rogers on 01-15-2024 Leukocyte esterase Auto test strip Ql (U) 2+ Negative [facility] Urobilinogen Auto test strip (U) [Mass/Vol]Ordered By: Elias Rogers on 01-15-2024 Urobilinogen (U) [Mass/Vol] Normal mg/dL Normal [facility] pH Auto test strip (U)Ordere d By: Elias Rogers on 01-15-2024 pH (U) 6.0 [pH] 5.0-9.0 [facility] Automated erythrocytes count in urine sediment (number/area)Ordered By: Cecilio Brody on 10-14-2023 RBC Auto (Urine sed) [#/Area] 10-19 [HPF] 0-4 [facility] Automated leukocytes count i n urine sediment (number/area)Ordered By: Cecilio Brody on 10-14-2023 WBC Auto (Urine sed) [#/Area] 5-9 [HPF] 0-4 [facility] Bilirubin Test strip Ql (U)O rdered By: Cecilio Brody on 10-14-2023 Bilirubin Ql (U) Negative Negative [facility] Color Auto (U)Ordered By: Alexandra Brody on 10-14-2023 Color (U) Yellow Yellow [facility] HCG ( test) IA.rapi d Ql (U)Ordered By: Cecilio Brody on 10-14-2023 HCG ( test) Ql (U) Negative [facility] Ketones Auto test strip (U) [Mass/Vol]Ordered By: Cecilio Brody on 10-14-2023 Ketones (U) [Mass/Vol] Negative Negative [facility] Laboratory - UrinalysisOrder ed By: Cecilio Brody on 10-14-2023 Hyaline casts LM Ql (Urine sed) 0-8 [LPF] 0-8 [facility] Nitrite Test strip Ql (U)Ord ered By: Cecilio Brody on 10-14-2023 Nitrite Ql (U) Negative Negative [facility] Protein Auto test strip (U) [Mass/Vol]Ordered By: Cecilio Brody on 10-14-2023 Protein (U) [Mass/Vol] Negative Negative [facility] Specific gravity Auto test s trip (U) [Rel density]Ordered By: Cecilio Brody on 10-14-2023 Specific gravity (U) [Rel density] 1.022 1.001-1.030 [facility] Squamous epithelial cells de tection in urine sediment by light microscopyOrdered By: Cecilio Brody on 10-14-2023 Epithelial cells.squamous LM Ql (Urine sed) 3-4 [HPF] 0-2 [facility] Trichomonas vaginalis detect ion by wet preparationOrdered By: Cecilio Brody on 10-14-2023 T. vaginalis Wet prep Ql (Unsp spec) [facility] Urine bacteria detection by automated methodOrdered By: Cecilio Brody on 10-14-2023 Bacteria Auto Ql (U) None seen None Seen [facility] Urine clarity by refractomet ry automatedOrdered By: Cecilio Brody on 10-14-2023 Clarity Refractometry automated (U) Clear Clear [facility] Urine glucose measurement by automated test strip (mass/volume)Ordered By: Cecilio Brody on 10-14-2023 Glucose Auto test strip (U) [Mass/Vol] Normal mg/dL Normal [facility] Urine hemoglobin detection b y automated test stripOrdered By: Cecilio Brody on 10-14-2023 Hemoglobin Auto test strip Ql (U) Negative Negative [facility] Urine leukocyte esterase det ection by automated test stripOrdered By: Cecilio Brody on 10-14-2023 Leukocyte esterase Auto test strip Ql (U) 2+ Negative [facility] Urobilinogen Auto test strip (U) [Mass/Vol]Ordered By: Cecilio Brody on 10-14-2023 Urobilinogen (U) [Mass/Vol] Normal mg/dL Normal [facility] pH Auto test strip (U)Ordere d By: Cecilio Brody on 10-14-2023 pH (U) 6.0 [pH] 5.0-9.0 [facility] Automated erythrocytes count in urine sediment (number/area)Ordered By: Felix Simpson on 08-26-2023 RBC Auto (Urine sed) [#/Area] 3-4 [HPF] 0-4 [facility] Automated leukocytes count i n urine sediment (number/area)Ordered By: Felix Simpson on 08-26-2023 WBC Auto (Urine sed) [#/Area] 5-9 [HPF] 0-4 [facility] Bacteria identified Aer cx N om (Genital specimen)Ordered By: Felix Simpson on 08-26-2023 Genital Culture Gardnerella vaginalis [facility] Bilirubin Test strip Ql (U)O rdered By: Felix Simpson on 08-26-2023 Bilirubin Ql (U) Negative Negative [facility] Color Auto (U)Ordered By: Drew Simpson on 08-26-2023 Color (U) Yellow Yellow [facility] Fungal cultureOrdered By: Drew Simpson on 08-26-2023 Fungus identified Cx Nom (Unsp spec) [facility] HCG ( test) IA.rapi d Ql (U)Ordered By: Felix Simpson on 08-26-2023 HCG ( test) Ql (U) Negative [facility] Ketones Auto test strip (U) [Mass/Vol]Ordered By: Felix Simpson on 08-26-2023 Ketones (U) [Mass/Vol] Negative Negative [facility] Laboratory - Microbiology an d Antimicrobial susceptibilityOrdered By: Felix Simpson on 08-26-2023 C. trachomatis DNA LEV+probe Ql (Unsp spec) Negative Negative [facility] N. gonorrhoeae DNA LEV+probe Ql (Unsp spec) Negative Negative [facility] Comment on above: Performed at: = - [address] [id number] Director: Mavis Sow MD, Phone: [phone] Laboratory - UrinalysisOrder ed By: Felix Simpson on 08-26-2023 Hyaline casts LM Ql (Urine sed) 0-8 [LPF] 0-8 [facility] Nitrite Test strip Ql (U)Ord ered By: Felix Simpson on 08-26-2023 Nitrite Ql (U) Negative Negative [facility] Protein Auto test strip (U) [Mass/Vol]Ordered By: Felix Simpson on 08-26-2023 Protein (U) [Mass/Vol] Negative Negative [facility] Specific gravity Auto test s trip (U) [Rel density]Ordered By: Felix Simpson on 08-26-2023 Specific gravity (U) [Rel density] 1.020 1.001-1.030 [facility] Squamous epithelial cells de tection in urine sediment by light microscopyOrdered By: Felix Simpson on 08-26-2023 Epithelial cells.squamous LM Ql (Urine sed) 3-4 [HPF] 0-2 [facility] Trichomonas vaginalis detect ion by wet preparationOrdered By: Felix Simpson on 08-26-2023 T. vaginalis Wet prep Ql (Unsp spec) [facility] Urine bacteria detection by automated methodOrdered By: Felix Simpson on 08-26-2023 Bacteria Auto Ql (U) None seen None Seen [facility] Urine clarity by refractomet ry automatedOrdered By: Felix Simpson on 08-26-2023 Clarity Refractometry automated (U) Clear Clear [facility] Urine culture routineOrdered By: Felix Simpson on 08-26-2023 Bacteria identified Cx Nom (U) 2 Days [facility] Urine glucose measurement by automated test strip (mass/volume)Ordered By: Felix Simpson on 08-26-2023 Glucose Auto test strip (U) [Mass/Vol] Normal mg/dL Normal [facility] Urine hemoglobin detection b y automated test stripOrdered By: Felix Simpson on 08-26-2023 Hemoglobin Auto test strip Ql (U) 2+ Negative [facility] Urine leukocyte esterase det ection by automated test stripOrdered By: Felix Simpson on 08-26-2023 Leukocyte esterase Auto test strip Ql (U) 1+ Negative [facility] Urobilinogen Auto test strip (U) [Mass/Vol]Ordered By: Felix Simpson on 08-26-2023 Urobilinogen (U) [Mass/Vol] Normal mg/dL Normal [facility] pH Auto test strip (U)Ordere d By: Felix Simpson on 08-26-2023 pH (U) 5.5 [pH] 5.0-9.0 [facility] Automated erythrocytes count in urine sediment (number/area)Ordered By: Aura Brown on 12-20-2022 RBC Auto (Urine sed) [#/Area] 5-9 [HPF] 0-4 [facility] Automated leukocytes count i n urine sediment (number/area)Ordered By: Aura Brown on 12-20-2022 WBC Auto (Urine sed) [#/Area] 50-100 [HPF] 0-4 [facility] Bilirubin Test strip Ql (U)O rdered By: Aura Brown on 12-20-2022 Bilirubin Ql (U) Negative Negative [facility] Color Auto (U)Ordered By: Valdez Brown on 12-20-2022 Color (U) Yellow Yellow [facility] Fungal cultureOrdered By: Valdez Brown on 12-20-2022 Fungus identified Cx Nom (Unsp spec) [facility] HCG ( test) IA.rapi d Ql (U)Ordered By: Aura Brown on 12-20-2022 HCG ( test) Ql (U) Positive [facility] Ketones Auto test strip (U) [Mass/Vol]Ordered By: Aura Brown on 12-20-2022 Ketones (U) [Mass/Vol] Negative Negative [facility] Laboratory - UrinalysisOrder ed By: Aura Brown on 12-20-2022 Hyaline casts LM Ql (Urine sed) 0-8 [LPF] 0-8 [facility] Nitrite Test strip Ql (U)Ord ered By: Aura Brown on 12-20-2022 Nitrite Ql (U) Positive Negative [facility] Protein Auto test strip (U) [Mass/Vol]Ordered By: Aura Brown on 12-20-2022 Protein (U) [Mass/Vol] Negative Negative [facility] Specific gravity Auto test s trip (U) [Rel density]Ordered By: Aura Brown on 12-20-2022 Specific gravity (U) [Rel density] 1.019 1.001-1.030 [facility] Squamous epithelial cells de tection in urine sediment by light microscopyOrdered By: Aura Brown on 12-20-2022 Epithelial cells.squamous LM Ql (Urine sed) 5-9 [HPF] 0-2 [facility] Trichomonas vaginalis detect ion by wet preparationOrdered By: Aura Brown on 12-20-2022 T. vaginalis Wet prep Ql (Unsp spec) [facility] Urine bacteria detection by automated methodOrdered By: Aura Brown on 12-20-2022 Bacteria Auto Ql (U) 2+ None Seen [facility] Urine clarity by refractomet ry automatedOrdered By: Aura Brown on 12-20-2022 Clarity Refractometry automated (U) Cloudy Clear [facility] Urine glucose measurement by automated test strip (mass/volume)Ordered By: Aura Brown on 12-20-2022 Glucose Auto test strip (U) [Mass/Vol] Normal mg/dL Normal [facility] Urine hemoglobin detection b y automated test stripOrdered By: Aura Brown on 12-20-2022 Hemoglobin Auto test strip Ql (U) Negative Negative [facility] Urine leukocyte esterase det ection by automated test stripOrdered By: Aura Brown on 12-20-2022 Leukocyte esterase Auto test strip Ql (U) 4+ Negative [facility] Urobilinogen Auto test strip (U) [Mass/Vol]Ordered By: Aura Brown on 12-20-2022 Urobilinogen (U) [Mass/Vol] Normal mg/dL Normal [facility] pH Auto test strip (U)Ordere d By: Aura Brown on 12-20-2022 pH (U) 5.5 [pH] 5.0-9.0 [facility] Automated erythrocytes count in urine sediment (number/area)Ordered By: Lilliam Linares on 08-22-2022 RBC Auto (Urine sed) [#/Area] 3-4 [HPF] 0-4 [facility] Automated leukocytes count i n urine sediment (number/area)Ordered By: Lilliam Linares on 08-22-2022 WBC Auto (Urine sed) [#/Area] 20-49 [HPF] 0-4 [facility] Bilirubin Test strip Ql (U)O rdered By: Lilliam Linares on 08-22-2022 Bilirubin Ql (U) Negative Negative [facility] Casts typing in urine sedime nt by light microscopyOrdered By: Lilliam Linares on 08-22-2022 Casts LM Nom (Urine sed) None seen [LPF] None S een [facility] Color Auto (U)Ordered By: Yadi Linares on 08-22-2022 Color (U) Yellow Yellow [facility] HCG ( test) IA.rapi d Ql (U)Ordered By: Lilliam Linares on 08-22-2022 HCG ( test) Ql (U) Negative [facility] Ketones Auto test strip (U) [Mass/Vol]Ordered By: Lilliam Linares on 08-22-2022 Ketones (U) [Mass/Vol] Trace Negative [facility] Laboratory - UrinalysisOrder ed By: Lilliam Linares on 08-22-2022 Hyaline casts LM Ql (Urine sed) 0-8 [LPF] 0-8 [facility] Nitrite Test strip Ql (U)Ord ered By: Lilliam Linares on 08-22-2022 Nitrite Ql (U) Negative Negative [facility] Protein Auto test strip (U) [Mass/Vol]Ordered By: Lilliam Linares on 08-22-2022 Protein (U) [Mass/Vol] Negative Negative [facility] Specific gravity Auto test s trip (U) [Rel density]Ordered By: Lilliam Linares on 08-22-2022 Specific gravity (U) [Rel density] 1.019 1.001-1.030 [facility] Squamous epithelial cells de tection in urine sediment by light microscopyOrdered By: Lilliam Linares on 08-22-2022 Epithelial cells.squamous LM Ql (Urine sed) 5-9 [HPF] 0-2 [facility] Trichomonas vaginalis detect ion in urine sediment by light microscopyOrdered By: Lilliam Linares on 08-22-2022 T. vaginalis LM Ql (Urine sed) 0-1 [HPF] None Seen [facility] Urine bacteria detection by automated methodOrdered By: Lilliam Linares on 08-22-2022 Bacteria Auto Ql (U) None seen None Seen [facility] Urine clarity by refractomet ry automatedOrdered By: Lilliam Linares on 08-22-2022 Clarity Refractometry automated (U) Clear Clear [facility] Urine glucose measurement by automated test strip (mass/volume)Ordered By: Lilliam Linares on 08-22-2022 Glucose Auto test strip (U) [Mass/Vol] Normal mg/dL Normal [facility] Urine hemoglobin detection b y automated test stripOrdered By: Lilliam Linares on 08-22-2022 Hemoglobin Auto test strip Ql (U) Negative Negative [facility] Urine leukocyte esterase det ection by automated test stripOrdered By: Lilliam Linares on 08-22-2022 Leukocyte esterase Auto test strip Ql (U) 4+ Negative [facility] Urine sediment renal epithel ial cell count by microscopy (number/high power field)Ordered By: Lilliam Linares on 08-22-2022 Epithelial cells.renal LM.HPF (Urine sed) [#/Area] None seen [HPF] 0-1 [facility] Urobilinogen Auto test strip (U) [Mass/Vol]Ordered By: Lilliam Linares on 08-22-2022 Urobilinogen (U) [Mass/Vol] Normal mg/dL Normal [facility] pH Auto test strip (U)Ordere d By: Lilliam Linares on 08-22-2022 pH (U) 6.0 [pH] 5.0-9.0 [facility] XR KNEE LT 4V or [...] by: Yared JOYNER Date: 2022-06-07 02:52 Normal [facility] Coding Summaryon 08-29-2021 Coding Summary HTMLBase 64 TongtvuyPCp6pSz+PGhlYW Q+JG9WFNYrH02mrSCgnI8X R8rLSN9AXEDPWWGTNK1LVJ 6txJZ7NZxhL0PmnpNm SjdfiAMkSC16YFw7PAQ7mV lpSKzdmK6svVNtP4s3RfVb RV71hV81NTqvLKBhYxP9Mr ZpbjsgbWFy S3zaPmOalVHhAus+PHRhYm xlIHdpZHRoPScxMDAlJyBz yEumOP5pBw4zYOIiGMJwoZ xhcHNlOiBj r0axQQKxPCpyUL0sxXaqV2 KnfBN4NIHwc9i0Yc06vRK+ IELsGBN5nJunNMxhx291Ra Ctl7ldAXZ7 dISdNMfpOJK7W00yi7W8PE LgBJEgPQP3lFQ9mR8gfShg gdihE3SdcWBkOfG6JDH0uN XyuQ6ifBej frlfdN2xIgs+P18CJG3QWG MKLT6JNck4F6YoHjjbzVQ+ MB15REOlAY80pNPsiAFvx9 elmIp3FsEa TSGlRFS6cXjcELqil4OgSG CjK66syTCax4J5KIYccHot fVQcEbDlvLN7qN9nOLhtpd zok9zvynmt Xjrtq9alhb95kQ52F74lOD heOXUhDAM6OTUmRAAeiAzm ae8tyW0fNu2+QDbcn0yix8 kncEh2XhAb IQAfhbCicThuMQM3a9YoPt 30P5JytCrjn9JkVfh8ms73 tSKmf1N8kFW2PFaeSXCxzY 8rKEcdZfG9 IJVlDfIlgB50oRGkXYeuEd 9syShwaVweBK6yTGVoncce NLZnaM8eLEVoaVLwsYigYY 4wNTBpbjtm l921BnHgSAK2DGBsrQRxX8 OwlA6mCjGbXOPzPBXdQ9Zf wTKvOVmzV427BEeeKfY9LI FygoSdG8Kv QWAuxAnoKmR4h7X8Jj5Do4 TteqgnQJD3DLsjRYBpLnG8 TbZkKhA2E5EeJcr2NIJbxS cwVY3nD0Is BHCituugijxjfVW2NKGxNI PlzL95dHVwROrlWt9ul9U3 b182TPJqWREqqS65Ia0pjU ogMTBwdCBU sD2hchqev7yfthcyHpJsTD UiKBm7PCq2ZQAhtKvvEmBy WFX0YyA1ZCT9iATfjI9geX bevqgobP9i Oyc+E86ebD6gZMX8THI2uz bxPBRsjqYrTS07YB42J0Ev PjwvdGFibGU+PGRpdiBzdH kdOY7nLcBv y6hye2SaOAlnK5GiLQUfNH kaGjb9RURjZQM4tBJ2bW1x BWBeOAdvh6Q5cLC6J0Efot Fkfh6oi3us CIKdSNsdM36ivFZdz7B4KY OmlCN3LXLmeOsgLzTyuV46 Oyc+GTYodKryc4WxNojzc5 spa4eutSu3 UnOiSIPjnlHboTmjKYP8q7 GlMk63N33bPJdwJPRfKIUi JWOuFQCkuNxafu9dvQ9sEd 8+PGNvbCB3 pOF4gZ1dKVZdVpS5CMflO1 48WkSucODbDvzag7cei2xo iWk7ZfDxYJHmhbMptDfoHG I4z3WdGh43 I26zFCyjPCEgSYTqTRDbXZ RomJmxvy9peK5pRr8+PC9j k8uhgn52cS06gRG+PHRkIH U4lWdoBSkj WDBmlD9vYHvmVcN8JNHmMg UmdH08mZPwBJmxMl9swBut eKycQD1rPPYnxxvlm309Sg Fhf3svARHb mXWdZJgfCGE9G30ne1F1BK ZkRHZzYBT3dIH6kG5oiDsb bjogbGVmdDsgdmVydGljYW fwDDwgC344 IHRvcDsnPlBhdGllbnQgTm TxLOt1R2HtRdu7ZQUkjQss NR5lwVTlEHmaTm2xjVzkrO atFG3eYQQi hmohx591SlMao2giCVLhhE TjLTxbDMX0C27fr0G9LQOr JEWjVAS6qRD1nT3naHlbtm ogbGVmdDsg vaGicIsmPUsbRMotG875LI RvcDsnPkJpcnRoIERhdGU6 WX12NM05vPSzv7R4xAI1U1 BhZGRpbmct zfqrzZN8ABEsOOMdxL80Qt 9ebVkySr3yDDOhRMM1VICy tLKiT0DveQ3kPsIkRKDrZG YlI0ZxqLPz QSivM302EReiQqC3ESSsbt GeF6VyRTCgrFhxInH0d7R1 Va0QM5G4PB34EM81mMGlc6 H1wPO3N1Jc NEMrhxfpzbscbSE2WGTeIQ OuvJ44Ih4pbHxuSx8dVFHk HSR8QXIueJHpH8AqiC9oPx AjMDAwMDAw C1MdpBRxTZbhS136RDgcRa P7OVXhpxUnG3YuOLTkvYks LfE2t8V7Nk9PIZo5RT15QS 29uNVns6N2 nYJ3W8JnBQBernwgcljnsP R2JXOcJBNheX92Vp5kaSxw Lo0uVHEpUBV2BMDbmCMcT0 IznC8tMbBf SOHcDGMiE6UvzCQbPFlnJ1 17TWfuBvI6FECgfqUwV5Xq VWIwbQcuQoH4f5D9Rg6DEP RnPW20VWN9 wCK7FK86YU53Y1OsWkdigS FibGU+PHRhYmxlIHdpZHRo QWbjDISxFrVxwKgtPO3eMp 9yZGVyLWNv eUacbWVxFiTgq5btVCZyGH cdSR7sgNolE9SlwER7PINz l6k8Zm97B77vA9TqnOT+PG YlrJB0qJF2 bA7kSuFtJeK2WOahA863Xq BkdDPjVeing6amx8zbjXm2 UtR7MUIkyhRfiCmiFAM2h7 HgXw23L94z IHdpZHRoPSIxNSUiIHZhbG skat7irT1yBm3+PGNvbCB3 aRO7cH4sEnGnSjU2ODcjC9 49InRvcCIv Wipds8uzu3qvkAt1QsCxJH ImbzSbdExaBRL1r9CcKc35 E0ByoPsvq4VaVqj5lr43lX Lpn3T0hBL8 B2ZjTKAtmvxvbUEazFvkZY 6eZPRjjkbhAZNdrC3dVAZe Q8r8TkBkSzW1NQjiY8Aard X5GYXduALj MCjwTIM9G05lb8Y5QWCpUJ GxSJL6hFP8sC5fhAylbkag bGVmdDsgdmVydGljYWwtYW wvO362GUJe fTdtGSGriG8gKBRxqTOumB fiJZ1iCHXkidwbRseMH3XG EskcKPMUJNWOESG3P8TyBe f1WIKtqQbb PR4kgQNtFRwtVc3htYehlP qmPT0iHWBnazncKJFcnP3t GKMqkUNboUrlEI6eLINwsk qhu137OeNp PQN1QJYvbOJaD5LchB9aNq EeJCIoJPJrJ0KhaCOuAQge K487VWyvIhD9OHPsdeBfU8 FsLWFsaWdu YxA9y4I4Ca9cHN3cSv6qHC AdCZ60PL22rNUnl2I2uMM9 F0TyMHTlttrdynfplOQ1ZX TgYCObsL63 kTErPLrmOw3eb5Y9q346JI IyXLOlqX03Ie6tjZyrYLVm gOHOjT8svjcme3dghbnpGn AwMDAwMDt0 QZx6YSZkwQunHsWaRNR0Bt X2JDN1gXOhqH5owQctbhtx iO7gHus+YjCoUFMtylV1F3 JeSxa3FHJu zIcmJN1jrRPuMYniSs0zcP iwvCmjWK2wWFEbzgsqNXVz wA0cVYByjDOchEynVM0uNQ Ijesrkg422 TcHwBEQ5AGXwnUWaI2RywG 4rAzHkMFWyFJXrS7WixAId YVqwT948PPymUzY5WFKarb ZjS3GqEYMx aWdoJvS5d5W5Ed7XBL8KEZ R2O9GeRvu4KIAyhHpaNT2y xROuZJtyFj5dwBmvgTjbLR 4wNTBpbjtw ECYjwI0uSYOryABlzYvuLG 3tGKTtgfuea544UmIrQFI6 VNGmoRQtV8HscZ2tGjCmDB UdTBIbU1Ok sHOjVFnlX009KPckWeR4DE YqosOpP9HyVPQcyVorKoW4 x9P2Kn0NKLrfwBA+PC90cj 57F6GgNvla Wva8BIUhQSG6pSM2nS7xPQ GrILlgm7L3eVZ2D5WiooXs bf8vh9eaZAGdMBekX44jiX Xsh2G8ICNq xJP1JNCpsLyrShMipC74Fu c+MYOkdGvop1RrGnfpc3xe y7teePt8HfQtATSwfsSdrR reXIG5t8Hn Ay27R89kWEhiRBUeJBXpMM LeAPArfSsunt8umP0uLd3+ UNFgnHQ0uKA6nC0qQhUbGl U1OYvgC007 ZpAgfQEnWhscv1khz0iufC a6RmTlFGWxmlBijMtoRBB6 y8IqGn62J2PyxKyzo4GmAk s3pe36fBKh a0V6xQU7L6KqDLMjxdfdaQ IzdXxhIR5wYTLymvhlVQGd sF9bODIoH2c7SjXqGuE8CV atN3StikR4 VLIbzUKbHTIhcKIHiP5wmd ttz8kwwzzhEjXlOJMlKTa5 VWr8GGPcbObaBmZaIGJ0Wy R0PPA6pOXs aR6htMhhusvmlT4lMdy+UG m2c5ppeHZoYG9ctLI0HH52 UZ73wPQme3O2fVE5L7CjOF Rpbmctcmln aCY7UTLoXYDxwX10Aj8eiL wiAn5cAGIfUJM1OFNkeKXm A8QenH5qRbQjESAvMNToW5 RleHQtYWxp Y554EKjtFuQ7RQSqjhClC5 QjARGwoJsdJoM3z2U2Ze7B KH59DV11GF19bXSnr1Z2mH H7N7TzHYJh okqkupplcQL8BTVsEZCkwE 57Hz5wpFfbLx3jPLOoHVG2 YTOjlVLlB5PvqO8iWdGaMQ OsVFNnQ5Oq yZTbRQvzQ567INmtNnH7PL RewnDcX9HqNZZfgGfcPxA0 u7W0Ot0ZQm46XW60MO48rG Mdy4R8tXM8 T3ViJLOsbfjdfcoxrSZ6NX IxRNRulM16Yp9vmCzwCu9t TCUdDJM8TFOniWFrC9IsjU 9yOiAjMDAw TNMyB4GmnFRtDPcyT516FK acZkT1HACavxZqT3PhJIYh jKlhJeR7t5I3Qo4BBCvvuc l5I3OnOtwb dHI+DW93FZSgXZ28dJBzyI Wst7fbfJj2QdRyHCEqHAI6 bQqwLUhcq1EzMJFjN34lgX Kes4R9FURn bGx (more content not included)... [facility] Coding Summary HTMLBase 64 AnijphmaVSd9uKf+PGhlYW Q+UF1YUHIbF18hlOTgdW1T L8oIWQ0JRSSHWDPXSP9OPP 7lnHF3KJnfK9RupiBn EilhfDLxYB07SKq0JTO0yX guEFiwsF7kcFGcM8x9JwWq TJ01fQ97EMaiBPCkPzR7Yj ZpbjsgbWFy B5atEsHjzXIfZrg+PHRhYm xlIHdpZHRoPScxMDAlJyBz zPxiLJ4mNd4iWKIkRMVrmJ xhcHNlOiBj y1zzJJSvNDmwDW2koCftK7 FvaSB8QKSwa9g1Ay00zDD+ DGZxUVU0dCzyOXewi799Ul Mfv9tyLHW9 oDVaPYmtCQC2E41pa6J7YE YaQFNjYWU5vMJ9pK3mjPlw rhviZ7UskAElVpC0VYS5cN TcgM4sbXdv bguuqH3lZsy+S63NLP2IQY BDGV3PMmg2P5GoFsiuhTC+ FE50RXEtSB53oKRuoYXie7 oubKq6UmCy NTAfKXF6pUvaMZiqm2VdHI PfL68cfAPky4R8ZVPdvRrg mWYfNdHeyON0yH4lMMsvbd xig4wkloys Aabht8iuuf79qC31X90dFL seAYQfWJA6VCNoYYYefQns mh6ffM6pMp5+VLfbq2agw7 tjwIq5WuNx WVUljkQcnPgrMBU4s0ZkQq 90G8GyjJwmk2RhPxb9ar70 jXCce8I1lNM1FDqqKTGzrV 0nICbrRgG0 CGTaGyYsxH72uORkEBhgQa 6jaTgblTedVH2lNETzemsw GOBshZ8kDDRlwQZblMocHE 4wNTBpbjtm m921RhBsZBJ4DIPlqUIyD6 EomY2pPzWsIVEuJPJcY3Au mCKsTCbpV363JSegBdK4DQ QgobJpA2Ew NUCulBxpCgP3w6J8Ha9Rq9 ZwfmsmLAK7YCtwDDAgMwO6 EaGgWoY0G4HlLzb3NUNbmY vnWK6nD5Fs KVSkwyqecpwubFG0KSPkOJ OvyH05lKAhBAafOo2xa2I0 h312HOEeCLExeV89Uj4whB ogMTBwdCBU tU4hhgzte8jilgbeCpBsOF EjLVo7SRg3TEUrrJdqGwQx VCF2KgT8DZE1bPVqaG1doR qdyhcydA0k Oyc+G17cxN0dZBV3PKG7ie cvKJFbibOgBZ20CK23O4Si PjwvdGFibGU+PGRpdiBzdH qxQB3cAmFa k9pph3BySOuyR4JvLSZzOD tpIuu1QIJyCGT1kWN1xC2s QUMkZRqkn2F6fQS4X6Sftf Qyog3al8ew AAKjJUveO45elODig9J9PF OpnDC3BLCooYiqVjJnqA55 Oyc+RJPjjVdic0OoEcwch3 qjr9fahWv9 IdHgQAJoieOsaLkyAPA3c2 RiLf94W99pKWqaIOMpTESk UGJkZYOesGlkon6qfT3zKc 8+PGNvbCB3 tYA0kI9jNYAjHoX5TBewU9 71GtLonBWfSuaaj6pxe0pe lMk3ZwRfYJKyfrDqvQcoHJ P8k0ObNt75 J06jOLguCODsYDKxDEBpYV BgbDekus6uaW6fTd3+PC9j i5uabb69gJ55dPH+PHRkIH K6eIiyOFeq YJWslA2aEGwqRdF4ZIQfNc WnfD89xGZjRUyoBl2tsDwv rCrsXD6xVKTbdklck707Vc Tak9slPDGk aLCzBWfeOPC9J78vs8Q8BJ MqDIAoSYO7kGG6pS4dhXpd bjogbGVmdDsgdmVydGljYW ysNOiaO561 IHRvcDsnPlBhdGllbnQgTm KhTWc8L0VqNqq6KQPmfWhz JA2pnFSoCCooEz1jzTvosL mpJN1nURBb gtocf477TrLkr2adBMQuhA YvLXziOYJ0T68as4F8XUQp WMOzMYT1rGY7qE4sfYpypi ogbGVmdDsg byCmdHbzTUngXBfkV901SF RvcDsnPkJpcnRoIERhdGU6 QJ27OI93kKXbu4W9tAM1I2 BhZGRpbmct wdazaYJ8ZAZjJTKcmN99Bu 4kcAolBr5qKMLrCLV3SFIk qQOsP4CbbP1zCsUlPOEmNP CyV4FaiMBd UCegA660FZgpHvS8GKExcs BrQ8NlQMDdmScfRkV2t6S1 Ap3UL2Z5YP30WP93uQCnu5 S6xVS5M5Fx WPTjsoezdqnqvEO8CJEbIV KbiZ32Ni9tsXfsUg8fNOTg XLC2OZJvzXLmJ9NpiC4yUt AjMDAwMDAw Z6TmkGOnMIhpJ788IZstOd I4VOUzlmTfU3EsZPVsgGfj NeH3j6O7Bm6AOJa2DK38YM 02tJCzs4I3 sVM4G1YnJABkarbxbyuhaG Y4THXlQBDyzA34Tk1gqVia Dg2sWOKhPCW7RLCfdRTsP9 AsmJ8sMhCb LIGaXEPwS8OpfBIxLLrnB7 81GNcpCwO0PKNisuBvR8Fc YGIwpQaeDfN9t0J4Ld5OGK PsBC07ERU8 sKS9SX61JM30H9AkZlnbtO FibGU+PHRhYmxlIHdpZHRo XRspUBLsRqPxiYmpWU0fLe 9yZGVyLWNv aRspsNWqHnBpe4sjKZGkZJ duHU8hbUciP4YpyBK4VEWj u8t1Hf60N36fE0BuaAP+PG VufJS0yLM9 vX1wNfJpPyT8PVdcO455Xk AcbAMcOwphb9jbu6wmlCo7 VqN3WHCuvxVciBomORM7l9 UpUo20L18h IHdpZHRoPSIxNSUiIHZhbG rnls2bnN9iIa1+PGNvbCB3 vCG8jK7rBtXbYmQ1RZcvU6 49InRvcCIv Nbjpf2ofm9idzXy2VhIqYS DczwDuwXzrGRM7u9PdIj91 Q8OytTcnw5PoVxi0yu25rE Yoo8M3lSF0 N4MhTFZjmsuypBQpeApbZG 4yIXUfgrpdFTNmgB3rLYTr S3i4GuPkJsG7WLhuY0Qmis A6UQCrjBGw ZRwkZKN8U14jd4Z1GIWwVP ZqVEP5wVP1sY1xqJpreilx bGVmdDsgdmVydGljYWwtYW zvD679GUVo nWrjTRBolD2oJLTpdJCykI viLQ3hDMMufhcoElfLS0NY RccmLESABSCPLGX4Y2MoLa g3RUDghYhj HP9aqXQlMZnqZo3gbLypkO evDL3wWDLkfmygEFRgyN0s WICfrBNczEyeNC1oMHByar dyt697PgPt BXR7WQPdiPOiC4IseP1eVi WuTIBsNNLsV6GmtCQbLOrn E836ZMgqBcP3JPAdkoKaM7 FsLWFsaWdu QjA9z8U7Hx0nSN8gWi6hWJ QxHY46OH34eNWip7A3pYR1 U7KjLJYnmpsfkphnvFN6WL AcUOYnrS34 gGUkITcyXr3xz6O7l311QH SnRURcpH51Wm0ffNxsPVQe lULHpH3tpmoxh4uinqppPc AwMDAwMDt0 TNs7NJQvzMksXiVzKSX3En U9UPH2cHFhdE0ayUarkbue iG7oGpg+GtVeWDCsemD2K5 QiXed3XRPa xIbyLW7wnRSgIHmxFa3piO oyvZpaMR5nVINcyabhLWYf fI7lZGTomLBegPsiPE7yPY Wveqpkm585 OsTrWKW0TPHnqQBpS7FptZ 8jZhMyRAKtWCYkP2XisSXh YQwnI252NCmrNcD6OWJytl VeV6HfUQYj kPurIhH9n6X1Bl5BBH7ROS F4C7UiPhu7YLDnuRrkAG6a gFYpLYjhPk1hdNajqRurPG 4wNTBpbjtw KNUtpO2dAAXcjKHdsStpBT 2sJLTrdhzes964HwSeLRU1 TIVrkLAkR2DalG9fDcMoMM JpHLReM7Cu eQCkCOlcJ065DMzrLoO5VV RisaMtZ5JfETQtmDjwEbC8 q6K5Na7HwKUnW8GwJ2l1A3 RkPjwvdHI+ AK94RVRdTL58yQNrfUVou8 ldwJf1FxOaTEDrXAV8wOfc NJfpa4SxMNQkA25cxFBxw1 M7KKCwsSti jKIfQgNiwRS6mF8mUVbbzd lrt4pslxyvOcdvu6javb60 cR98J24xUTndVVDcKKVxHP UiIHZhbGln cj6kdB1bPa2+LJSvjVN1rP S8tO9jNrEvOoU3XZomZ979 OoTjyUFqRorum4yrh0pwtW o6KdCpHYYz bjPunVksEMM9k1KzIr98R6 9sIHdpZHRoPSIyMCUiIHZh yKmcxr2vrM3rXd7+PC9jb2 wqet44yC95 dHI+PYZiZGG5jFssIUssVE CxhF1zWEjdFpV3JMByNnVg aN21qSLxVZxeBb1rvHlnkZ txUG6nSXEl ecjhi587JcUja6nuYXGwvL WkOYylPNQ1L08fe8Y4SMDb SDLaBCS4tBC9hR6wiVehcq ogbGVmdDsg taCwjUjmCYxaIWyvU165JE WgxCoyLgFoqLSdA3ztwtMK DR0iYmiayJE+IYYwSDE4cM xlPSdwYWRk tV1dLLXvH3w2WbCnYzH2RA hdA6DvbmP9DQVhbRDiMHEq lASTlT0cjvcuw0kcjnyiNp AwMDAwMDt0 RIq4WJDloPgfWwHzCXM5Lf L7BBQ4lKFijI7luAsgbojb dB1qRqc+RklOOjwvdGQ+PH MjNJQ6jTec AGtlKKPuuS4mKACtE5w5Gy ItSzY6UPjwB1LixzW4RRLp aSYgSHNvtPEQxP1oxjfux1 xvcjogIzAw KVAzHVh4RTc6MDIniEmgCf WeQHI9QnX3VVN4sZVadO4i bUjrtofyuY6qCpe+TVJOOj wvdGQ+PHRk BST9kPqdPIfxFDWxnK6qAJ PlL1g4AeJeZnH5HNgpQ9Ag feY3OPHffGLmUTZanHSXoD 7pmsyjb9zu dtoxMkCwXCGwAPs9SBx5FX HfkRlxTjMwUPI4OrZ1UHB0 bYOdtN8ypRlvvdoozH0qNx c+PRS2SZN9 DF71LP69R2BeWmvvjZEsyI U+PHRhYmxlIHdpZHRoPScx HHYhHlTvfEkmXZ7eSl2nQG VyLWNvbGxh cHN (more content not included)... [facility] ED Note-Nursingon 08-27-2021 ED Note-Nursing Pt called and spoke with Von BOYCE. Pt stated her dog ate her prescription. Script for Flagyl 500 mg 1 tab BID x7 days called into [facility] pharmacy per pt request. [facility] Chlamydia/GC Amplification L Con 08-21-2021 Chlamydia trachomatis, LEV LC Positive Abnormal Negative [facility] Comment on above: Performed By: #### 1 [id number] ####[facility] (DEFAULT)[address] [place] [address] Neisseria gonorrhoeae, LEV LC Negative Invalid Interpretation Code Negative [facility] Comment on above: Result Comment: Perf ormed At: =G [facility] [id number] Magi Mcintyre MD Ph:[phone] Performed By: #### 1 [id number] ####[facility] (DEFAULT)[address] [place] [address] ED Note - Otheron 08-21-2021 ED Note - Other [id number] 0OTGTIFF [facility] ED Note - Other Pt positive for chlamydia. Dr. Olivares notified. He faxed Rx doxycycline to [facility] pharmacy, [address] Pt notified of results. Instructed to notify any sexual partners and to follow up with OB-WARHEAD MAINTENANCE SPECIALIST MD. She verbalizes understanding. [Electronically Signed on: 08/21/2021 13:27 EST] Bright HERRERA Janell [Verified on: 08/21/2021 13:27 EST] Bright HERRERAArnave [facility] ED Note - Physicianon 2020 ED [...] by state law will be forwarded to [facility] health department. [Electronically Signed on: 08/21/2021 10:46 EST] Joel Olivares MD [Verified on: 08/21/2021 10:46 EST] Joel Olivares MD [facility] C Urineon 08-19-2021 C Urine Urine Culture ordere d as a result of parameters set on specific urine dip and urine microsopic results. No growth at 2 days. [facility] Comment on above: Performed By: #### 5 [id number], [id number], [id number], [id number] ####[facility] (DEFAULT)[address] [place] [address] C Genitalon 08-18-2021 C Genital Normal vaginal migue isolated No growth of GC at 3 days. Corrected Results Below Gram Negative Diplococci not seen. 3+ Gram Positive Rods 1+ Gram Positive Cocci Rare Gram Negative Rods Normal [facility] Comment on above: Performed By: #### 2 [id number] ####[facility] (DEFAULT)[address] [place] [address] ED Clinical Summaryon 2020 ED Clinical Summary [facility] - Emergency Department [address] [place] [address] ED Clinical Summary PERSON INFORMATION Name: BEATRIS MACK Age: 21 Years Sex: FEMALE : 2000 MRN: Acct#: Visit Reason: Vaginal discharge; VAGINAL DISCHARGE/ITCHING Arrival: 08/17/2021 13:36:40 Discharge: 08/17/2021 16:11:00 LOS: 000 02:35 Check In: 08/17/2021 13:36:40 Checkout:08/17/2021 16:11:00 Address: [facility] [address] PCP: Provider, None PROVIDER INFORMATION Provider Role [...] chills. No recent sick contacts or travel. COMMUNITY RELATIONS MANAGER is Dr. Saab. No known medication allergies. [...] lesions, Normal (more content not included)... Normal [facility] ED Note - Physicianon 2020 ED [...] chills. No recent sick contacts or travel. COMMUNITY RELATIONS MANAGER is Dr. Saba. No known medication allergies. No current medications. [...] Nurse colle (more content not included)... Normal [facility] ED Note-Nursingon 08-17-2021 ED Note-Nursing Patient [...] well. Pt denies any other issues. Normal [facility] ED Patient Summaryon 021 ED Patient Summary [facility] - Emergency Department [address] [place] [address] PATIENT DISCHARGE INSTRUCTIONS Patient Information Name: BEATRIS MACK Age: 21 Years Date of : 2000 Reason For Visit: Vaginal discharge; VAGINAL DISCHARGE/ITCHING Arrival Time: 08/17/2021 13:36:40 Primary Care Physician: Provider, None Attending Physician: Silver Levi MD Comment: Visit Diagnosis: Diagnoses This Visit Trichomonas vaginalis (TV) infection (A59.01) Vaginal discharge ([id number]) Prescription Information: If you have been given a prescription for narcotics, seek immediate medical attention if you have any difficulty breathing or any sudden status changes such as confusion and sleepiness. If you or anyone you know is experiencing suicidal thoughts, mental health, alcohol and/or drug addiction problems; contact the [facility] 13/04 Crisis Hotline -Text 4HOZS to 268501. If you received any narcotics, sedation, or [...] 5 days Comments: Please follow-up with your COMMUNITY RELATIONS MANAGER in 3 to 5 days. Contact their [...] you received today in the [facility] Emergency Department were for an urgent problem and are not intended as complete care. It is important for you to follow up with a doctor, nurse practitioner, or physician?s seed laboratory assistant for ongoing care. If your symptoms [...] so we can reach you if necessary. [facility] Emergency Department has provided you with a complete list of medications post discharge. Please inform your test engineer/provider of your visit and for further instruction on these medications. Any specific questions regarding your chronic medications and dosages should be discussed with your primary care physician(s) and/or pharmacist. New Medications [id number], [address], [place] [id number], [phone] metroNIDAZOLE (Flagyl 500 mg oral tablet) 1 [...] also be involved (more content not included)... [facility] Test Urine 1on U Preg Negative [facility] Comment on above: Performed By: #### 5 [id number], [id number], [id number], [id number] ####[facility] (DEFAULT)[address] [place] [address] U Preg Internal Control Pass [facility] Comment on above: Performed By: #### 5 [id number], [id number], [id number], [id number] ####[facility] (DEFAULT)[address] [place] [address] UA Skpdb3zp 08-17-2021 UA Bacteria Trace [facility] Comment on above: Order Comment: Urina lysis Microscopic order added on by Scoreoid Expert Rules system. Performed By: #### 5 [id number], [id number], [id number], [id number] ####[facility] (DEFAULT)[address] [place] [address] UA Mucous 2+ [facility] Comment on above: Order Comment: Urina lysis Microscopic order added on by Scoreoid Expert Rules system. Performed By: #### 5 [id number], [id number], [id number], [id number] ####[facility] (DEFAULT)[address] [place] [address] UA RBC 3-5 [facility] Comment on above: Order Comment: Urina lysis Microscopic order added on by Scoreoid Expert Rules system. Performed By: #### 5 [id number], [id number], [id number], [id number] ####[facility] (DEFAULT)[address] [place] [address] UA Squam Epi Few [facility] Comment on above: Order Comment: Urina lysis Microscopic order added on by Discern Expert Rules system. Performed By: #### 5 [id number], [id number], [id number], [id number] ####[facility] (DEFAULT)[address] [place] [address] UA Trichomonas Few [facility] Comment on above: Order Comment: Urina lysis Microscopic order added on by Discern Expert Rules system. Performed By: #### 5 [id number], [id number], [id number], [id number] ####[facility] (DEFAULT)[address] [place] [address] UA WBC 25-30 [facility] Comment on above: Order Comment: Urina lysis Microscopic order added on by Discern Expert Rules system. Performed By: #### 5 [id number], [id number], [id number], [id number] ####[facility] (DEFAULT)[address] [place] [address] UA w Culture if Ind Standard on 08-17-2021 Breakpoint UA [facility] Comment on above: Performed By: #### 5 [id number], [id number], [id number], [id number] ####[facility] (DEFAULT)[address] [place] [address] Color (U) Yellow [facility] Comment on above: Performed By: #### 5 [id number], [id number], [id number], [id number] ####[facility] (DEFAULT)[address] [place] [address] Culture? Indicated Invalid Interpretation Code [facility] Comment on above: Result Comment: Resu lt created by rule GL_MAGR_ADD_UA_CULT Result created by rule GL_MAGR_ADD_UA_CULT Result created by rule GL_MAGR_ADD_UA_CULT1 Performed By: #### 5 [id number], [id number], [id number], [id number] ####[facility] (DEFAULT)[address] [place] [address] Glucose (U) [Mass/Vol] Negative Normal [facility] Comment on above: Performed By: #### 5 [id number], [id number], [id number], [id number] ####[facility] (DEFAULT)[address] [place] [address] Ketones Ql (U) Negative Normal [facility] Comment on above: Performed By: #### 5 [id number], [id number], [id number], [id number] ####[facility] (DEFAULT)[address] [place] [address] Micro? Indicated Invalid Interpretation Code [facility] Comment on above: Result Comment: Resu lt created by rule GL_MAGR_ADD_UA_MICRO Performed By: #### 5 [id number], [id number], [id number], [id number] ####[facility] (DEFAULT)[address] [place] [address] UA Bilirubin Negative Normal [facility] Comment on above: Performed By: #### 5 [id number], [id number], [id number], [id number] ####[facility] (DEFAULT)[address] [place] [address] UA Blood Negative Normal NEGATIVE [facility] Comment on above: Performed By: #### 5 [id number], [id number], [id number], [id number] ####[facility] (DEFAULT)[address] [place] [address] UA Clarity CLEAR Normal CLEAR [facility] Comment on above: Performed By: #### 5 [id number], [id number], [id number], [id number] ####[facility] (DEFAULT)[address] [place] [address] UA Leuk Est TRACE Abnormal NEGATIVE [facility] Comment on above: Performed By: #### 5 [id number], [id number], [id number], 9642502 ####[facility] (DEFAULT)[address] [place] [address] 48789 UA Nitrite Negative Normal NEGATIVE [facility] Comment on above: Performed By: #### 5 [id number], [id number], [id number], 3806474 ####[facility] (DEFAULT)[address] [place] [address] UA pH 6.0 Normal 5-[address] [facility] Comment on above: Performed By: #### 5 [id number], [id number], [id number], [id number] ####[facility] (DEFAULT)[address] [place] [address] UA Protein Negative Normal NEGATIVE [facility] Comment on above: Performed By: #### 5 [id number], [id number], [id number], 3198768 ####[facility] (DEFAULT)[address] [place] [address] UA Spec Grav >=1.030 Normal 1.001-1.[address] [facility] Comment on above: Performed By: #### 5 [id number], [id number], [id number], [id number] ####[facility] (DEFAULT)[address] [place] [address] UA Urobilinogen 0.2 mg/dL Normal 0.2-1.[address] [facility] Comment on above: Performed By: #### 5 [id number], [id number], [id number], 1653731 ####[facility] (DEFAULT)[address] [place] [address] Urine Source Clean Catch Normal [facility] Comment on above: Performed By: #### 5 [id number], [id number], [id number], 8632030 ####[facility] (DEFAULT)[address] [place] [address] Wet Mount.on 08-17-2021 Wet Mount. Negative Normal [facility] Comment on above: Performed By: #### 1 [id number] #### [facility] (DEFAULT) [address] [place] [address] RAD - MISCon 06-19-2020 RAD - MISC [id number] CD:127 Normal [facility] Insurance Correspondence Off iceon 06-07-2020 Insurance Correspondence Office [id number] 0CD:127 [facility] Consent for Treatmenton 05-22 Consent for Treatment [id number] 0CD:127 [facility] Consultation Noteon 05-25-20 20 Consultation Note [id number] 0CD:127 [facility] Operative Reporton 0 Operative Report [id number]#1.0 0CD:127 [facility] Ambulatory Clinical Summaryo n 03-12-2020 Ambulatory Clinical Summary {[id number]}CD:[id number] [facility] Coding Summary.on 11-14-2019 Coding Summary. CODING DATE: 11/14/2019 [facility] STATUS: Left Against Medical Advice PAYOR: Teofilo ADMIT DX: REASON FOR VISIT DX: O99.89 Other specified diseases and conditions complicating , childbirth and the puerperium M54.5 Low back pain R51 Headache FINAL DX: PRINCIPAL: Z53.21 Procedure and treatment not carried out due to patient leaving prior to being seen by health care provider [facility] DESCRIPTION DOCTOR NAME DATE NOTE: The code number assigned matches the documented diagnosis and / or procedure in the patient's chart. However, the narrative phrase printed from the coding software may appear abbreviated, or result in slightly different terminology. Coded By: Belinda Person Date Saved: 11/14/2019 08:46 am [facility] Coding Summary. CODING DATE: 11/14/2019 [facility] STATUS: Left Without Being Seen PAYOR: Teofilo [...] Person Date Saved: 11/14/2019 08:46 am Normal [facility] ED Clinical Summaryon 2019 ED Clinical Summary [place] [id number] ED Clinical Summary Person Information Name: BEATRIS MACK [place] Age: 19 Years : 2000 Sex: Female Language: Lithuanian PCP: Jeanine Gimenez DO Marital Status: Single Phone: [phone] Visit Id: Visit Reason: Abdominal pain - [...] 11/12/2019 21:18:58 11/12/2019 21:18:58 11/12/2019 21:18:58 ADDRESS: [facility] [id number] [facility] DOC NOTES: MEDICAL INFORMATION: Prescriptions Given: PATIENT EDUCATION INFORMATION: Instructions: Follow up: DIAGNOSIS: Normal [facility] ED Patient Education Noteon 11-12-2019 ED Patient Education Note Normal [facility] ED Patient Summaryon 020 ED Patient Summary [place] [id number] Patient Discharge Instructions Person Information Name: BEATRIS MACK Age: 19 Years Arrival Date: 11/12/2019 19:17:38 Discharge Diagnosis: Primary Care Physician: Jeanine Gimenez DO Provider Information Primary Provider: Christian Vee MD Advanced Wirer Passenger Car:None The exam and treatment you received in the Emergency Department were for an urgent problem and are not intended as complete care. It is important that you follow up with a doctor, nurse practitioner, or physician?s seed laboratory assistant for ongoing care. If your symptoms [...] opioids can be used to help relieve kahludmc-ft-flpgyf pain and are often prescribed following a [...] be struggling with addiction, tell your health medical care administrator and ask for guidance or call [facility] National Helpline at 2-678-115-AWVO. b Source: [place] Department of Health and Human Services/Center for Disease Control & Prevention [facility] Medications Given: Medication Dose Route No medications found. Medication Information: Comment: Pharmacy Information: Thank you for choosing [facility] Patient Education Materials: FREDERICK Stein HAYLEE T , have received the following patient education materials/instructions and have verbalized understanding: Patient Education Materials: Follow-up Instructions: Patient Signature Date Clinician/Nurse Signature ___ Date 11/12/2019 21:18:59 Normal [facility] Progress Note-Nurseon 2019 Progress Note-Nurse pt left before dr. vee was in for exam Normal [facility] UA With Cult Reflexon 2019 Bacteria LM Ql (Urine sed) 1+ /HPF Abnormal Trace [facility] Comment on above: Performed By: #### 1 [id number] ####[facility] [address] [address] Bilirubin Ql (U) Negative Normal Negative [facility] Comment on above: Performed By: #### 1 [id number] ####[facility] [address] [address] Clarity (U) CLEAR Normal Clear [facility] Comment on above: Performed By: #### 1 [id number] ####[facility] [address] [place] [address] Color (U) YELLOW Normal Yellow [facility] Comment on above: Performed By: #### 1 [id number] ####[facility] [address] [place] [address] Crystals LM Ql (Urine sed) Present Normal [facility] Comment on above: Performed By: #### 1 [id number] ####[facility] [address] [address] Epithelial cells.squamous LM.HPF (Urine sed) [#/Area] 3-4 Normal 0-2 [facility] Comment on above: Performed By: #### 1 [id number] ####[facility] [address] [address] Glucose Test strip (U) [Mass/Vol] Negative Normal Negative [facility] Comment on above: Performed By: #### 1 [id number] ####[facility] [address] [place] [address] Hemoglobin Ql (U) Negative Normal Negative [facility] Comment on above: Performed By: #### 1 [id number] ####[address] [address] Ketones (U) [Mass/Vol] Negative Normal Negative [facility] Comment on above: Performed By: #### 1 [id number] ####[address] [address] Bunkie.plasma/Bunkie.R BC (Bld) [Mass ratio] 0-3 Normal 0-3 [facility] Comment on above: Performed By: #### 1 1191525 ####[address] [address] Mucus Ql (Urine sed) TRACE Normal [facility] Comment on above: Performed By: #### 1 3282540 ####[address] [address] Nitrite Ql (U) Negative Normal Negative [facility] Comment on above: Performed By: #### 1 [id number] ####[address] [address] pH (U) 6.0 [pH] 5.0-9.0 [facility] Comment on above: Performed By: #### 1 [id number] ####[address] [address] Protein (U) [Mass/Vol] Negative Normal Negative [facility] Comment on above: Performed By: #### 1 [id number] ####[address] [address] Specific gravity (U) [Rel density] 1.025 1.005-1.030 [facility] Comment on above: Performed By: #### 1 1305121 ####[address] [address] UA Spec Desc Clean Catch Normal [facility] Comment on above: Performed By: #### 1 [id number] ####[address] [place] [address] Urobilinogen Qn (U) 0.2 {Joy'U}/dL Normal 0.0-1.0 [facility] Comment on above: Performed By: #### 1 [id number] ####[facility] [address] [place] [address] WBC Auto Ql (U) Negative Normal Negative [facility] Comment on above: Performed By: #### 1 3474438 ####[facility] [address] [place] [address] WBC LM.HPF (Urine sed) [#/Area] 0-5 Normal 0-5 [facility] Comment on above: Performed By: #### 1 [id number] ####[facility] [address] [place] [address] Automated erythrocytes count in urine sediment (number/area)on 11-10-2019 RBC Auto (Urine sed) [#/Area] 3-4 [HPF] [facility] Automated leukocytes count i n urine sediment (number/area)on 11-10-2019 WBC Auto (Urine sed) [#/Area] 20-49 [HPF] [facility] Automated urine color determ inationon 11-10-2019 Color (U) Yellow Yellow [facility] Automated urine hyaline cast s count (number/volume)on 11-10-2019 Hyaline casts Auto (U) [#/Vol] Rare [LPF] [facility] Casts typing in urine sedime nt by light microscopyon 11-10-2019 Casts LM Nom (Urine sed) None seen [LPF] None S een [facility] Specific gravity of Urine by Automated test stripon 11-10-2019 Specific gravity (U) [Rel density] 1.017 1.001-1.030 [facility] Squamous epithelial cells de tection in urine sediment by light microscopyon 11-10-2019 Epithelial cells.squamous LM Ql (Urine sed) 5-9 [HPF] [facility] Urine bacteria detection by automated methodon 11-10-2019 Bacteria Auto Ql (U) 2+ None Seen [facility] Urine clarity by refractomet ry automatedon 11-10-2019 Clarity Refractometry automated (U) Turbid Clear [facility] Urine culture routineon 10-23 Bacteria identified Cx Nom (U) 2 Days [facility] Urine glucose measurement by automated test strip (mass/volume)on 11-10-2019 Glucose Auto test strip (U) [Mass/Vol] Normal mg/dL Normal [facility] Urine hemoglobin detection b y automated test stripon 11-10-2019 Hemoglobin Auto test strip Ql (U) Negative Negative [facility] Urine ketones measurement by automated test strip (mass/volume)on 11-10-2019 Ketones (U) [Mass/Vol] Negative Negative [facility] [facility] leukocyte esterase det ection by automated test stripon 11-10-2019 Leukocyte esterase Auto test strip Ql (U) 3+ Negative [facility] Urine nitrite detection by t est stripon 11-10-2019 Nitrite Ql (U) Negative Negative [facility] Urine pH measurement by auto mated test stripon 11-10-2019 pH (U) 6.5 [pH] 5.0-9.0 [facility] Urine protein measurement by automated test strip (mass/volume)on 11-10-2019 Protein (U) [Mass/Vol] Negative Negative [facility] Urine total bilirubin detect ion by test stripon 11-10-2019 Bilirubin Ql (U) Negative Negative [facility] Urine urobilinogen measureme nt by automated test strip (mass/volume)on 11-10-2019 Urobilinogen (U) [Mass/Vol] Normal mg/dL Normal [facility] Automated erythrocytes count in urine sediment (number/area)on 10-19-2019 RBC Auto (Urine sed) [#/Area] 1-2 [HPF] [facility] Automated leukocytes count i n urine sediment (number/area)on 10-19-2019 WBC Auto (Urine sed) [#/Area] 10-19 [HPF] [facility] Automated urine color determ inationon 10-19-2019 Color (U) Yellow Yellow [facility] Chlamydia trachomatis rRNA d etection by probe and target amplification methodon 10-19-2019 C. trachomatis rRNA LEV+probe Ql (Unsp spec) Negative Negative [facility] Comment on above: Performed at: =[place] [facility] [address] [place] [id number] Director: Mavis Sow MD, Phone: [phone] Serum or plasma beta choriog onadotropin measurement (units/volume)on 10-19-2019 HCG.beta subunit Qn 034654.00 m[IU]/mL [facility] Comment on above: Approximate Approxim ate hCG Gestational Age Range (mIU/ml) (weeks)0.2-1 5-50 1-2 50-500 2-3 100-5,000 3-4 500-10,000 4-5 1,000-50,000 5-6 10,000-100,000 6-8 15,000-200,000 8-12 10,000-100,000 Specific gravity of Urine by Automated test stripon 10-19-2019 Specific gravity (U) [Rel density] 1.021 1.001-1.030 [facility] Squamous epithelial cells de tection in urine sediment by light microscopyon 10-19-2019 Epithelial cells.squamous LM Ql (Urine sed) 10-19 [HPF] [facility] Urinalysison 10-19-2019 Hyaline casts LM Ql (Urine sed) 0-8 [LPF] [facility] Urine bacteria detection by automated methodon 10-19-2019 Bacteria Auto Ql (U) 1+ None Seen [facility] Urine clarity by refractomet ry automatedon 10-19-2019 Clarity Refractometry automated (U) Cloudy Clear [facility] Urine culture routineon 09-22 Bacteria identified Cx Nom (U) 2 Days [facility] Urine glucose measurement by automated test strip (mass/volume)on 10-19-2019 Glucose Auto test strip (U) [Mass/Vol] Normal mg/dL Normal [facility] Urine hemoglobin detection b y automated test stripon 10-19-2019 Hemoglobin Auto test strip Ql (U) Trace Negative [facility] Urine ketones measurement by automated test strip (mass/volume)on 10-19-2019 Ketones (U) [Mass/Vol] Negative [facility] leukocyte esterase det ection by automated test stripon 10-19-2019 Leukocyte esterase Auto test strip Ql (U) 1+ Negative [facility] Urine nitrite detection by t est stripon 10-19-2019 Nitrite Ql (U) Negative Negative [facility] Urine pH measurement by auto mated test stripon 10-19-2019 pH (U) 5.5 [pH] 5.0-9.0 [facility] Urine protein measurement by automated test strip (mass/volume)on 10-19-2019 Protein (U) [Mass/Vol] Negative [facility] total bilirubin detect ion by test stripon 10-19-2019 Bilirubin Ql (U) Negative Negative [facility] Urine urobilinogen measureme nt by automated test strip (mass/volume)on 10-19-2019 Urobilinogen (U) [Mass/Vol] Normal mg/dL Normal [facility] Automated erythrocytes count in urine sediment (number/area)on 10-02-2019 RBC Auto (Urine sed) [#/Area] 0-1 [HPF] [facility] Automated leukocytes count i n urine sediment (number/area)on 10-02-2019 WBC Auto (Urine sed) [#/Area] 20-49 [HPF] [facility] Automated urine color determ inationon 10-02-2019 Color (U) Yellow Yellow [facility] Automated urine hyaline cast s count (number/volume)on 10-02-2019 Hyaline casts Auto (U) [#/Vol] 0-1 [LPF] [facility] Casts typing in urine sedime nt by light microscopyon 10-02-2019 Casts LM Nom (Urine sed) None seen [LPF] None S een [facility] Chlamydia trachomatis rRNA d etection by probe and target amplification methodon 10-02-2019 C. trachomatis rRNA LEV+probe Ql (Unsp spec) Negative Negative [facility] Comment on above: Performed at: =G - L [address] [id number] Director: Mavis Sow MD, Phone: [phone] Specific gravity of Urine by Automated test stripon 10-02-2019 Specific gravity (U) [Rel density] 1.020 1.001-1.030 [facility] Squamous epithelial cells de tection in urine sediment by light microscopyon 10-02-2019 Epithelial cells.squamous LM Ql (Urine sed) 10-19 [HPF] [facility] Urine bacteria detection by automated methodon 10-02-2019 Bacteria Auto Ql (U) 2+ None Seen [facility] Urine clarity by refractomet ry automatedon 10-02-2019 Clarity Refractometry automated (U) Cloudy Clear [facility] Urine culture routineon 09-21 Bacteria identified Cx Nom (U) 2 Days [facility] Urine glucose measurement by automated test strip (mass/volume)on 10-02-2019 Glucose Auto test strip (U) [Mass/Vol] Normal mg/dL Normal [facility] Urine hemoglobin detection b y automated test stripon 10-02-2019 Hemoglobin Auto test strip Ql (U) Negative Negative [facility] Urine ketones measurement by automated test strip (mass/volume)on 10-02-2019 Ketones (U) [Mass/Vol] Negative Negative [facility] Urine leukocyte esterase det ection by automated test stripon 10-02-2019 Leukocyte esterase Auto test strip Ql (U) 2+ Negative [facility] Urine nitrite detection by t est stripon 10-02-2019 Nitrite Ql (U) Negative Negative [facility] Urine pH measurement by auto mated test stripon 10-02-2019 pH (U) 7.0 [pH] 5.0-9.0 [facility] Urine protein measurement by automated test strip (mass/volume)on 10-02-2019 Protein (U) [Mass/Vol] Negative Negative [facility] Urine sediment renal epithel ial cell count by microscopy (number/high power field)on 10-02-2019 Epithelial cells.renal LM.HPF (Urine sed) [#/Area] 1-2 [HPF] [facility] Urine total bilirubin detect ion by test stripon 10-02-2019 Bilirubin Ql (U) Negative Negative [facility] Urine urobilinogen measureme nt by automated test strip (mass/volume)on 10-02-2019 Urobilinogen (U) [Mass/Vol] Normal mg/dL Normal [facility] Automated basophil %on 09-06 Basophils/100 WBC (Bld) 0.1 % [facility] Automated basophil counton 1 11-07-2018 Basophils (Bld) [#/Vol] 0.0 10*3/uL 0.0-0.2 [facility] Automated blood lymphocyte c ount (number/volume)on 09-06-2019 Lymphocytes (Bld) [#/Vol] 0.4 10*3/uL 1.00-4.8 [facility] Automated blood lymphocyte c ount as percentage of total leukocyteson 09-06-2019 Lymphocytes/100 WBC (Bld) 5.3 % [facility] Automated blood monocyte cou nton 09-06-2019 Monocytes (Bld) [#/Vol] 1.2 10*3/uL 0.0-0.8 [facility] Automated blood platelet cou nt (count/volume)on 09-06-2019 Platelets (Bld) [#/Vol] 284 10*3/uL 150-450 [facility] Automated blood platelet mckenna n volume measurementon 09-06-2019 Platelet mean volume (Bld) [Entitic vol] 8.4 fL 6.3-10.7 [facility] Automated eosinophil %on Eosinophils/100 WBC (Bld) 0.3 % [facility] Automated eosinophil counton 09-06-2019 Eosinophils (Bld) [#/Vol] 0.0 10*3/uL 0.0-0.45 [facility] Automated erythrocyte distri bution width ratioon 09-06-2019 Erythrocyte distribution width (RBC) [Ratio] 16.9 % 11.9-15.3 [facility] Automated erythrocyte mean c orpuscular hemoglobin (mass per erythrocyte)on 09-06-2019 MCH (RBC) [Entitic mass] 29.9 pg 24.7-34.3 [facility] Automated erythrocyte mean c orpuscular hemoglobin concentration measurement (mass/volon 09-06-2019 MCHC (RBC) [Mass/Vol] 33.4 g/dL 32.0-35.0 [facility] Automated erythrocyte mean c orpuscular volumeon 09-06-2019 MCV (RBC) [Entitic vol] 89.6 fL 80-100 F [facility] Automated erythrocytes count in urine sediment (number/area)on 09-06-2019 RBC Auto (Urine sed) [#/Area] 10-19 [HPF] [facility] Automated leukocytes count i n urine sediment (number/area)on 09-06-2019 WBC Auto (Urine sed) [#/Area] 5-9 [HPF] [facility] Automated monocyte %on 09-06 Monocytes/100 WBC (Bld) 15.4 % F [facility] Automated neutrophil %on Neutrophils/100 WBC (Bld) 78.9 % [facility] Automated urine color determ inationon 09-06-2019 Color (U) Yellow Yellow [facility] Blood erythrocytes automated count (number/volume)on 09-06-2019 RBC (Bld) [#/Vol] 4.36 10*6/uL 3.60-5.00 [facility] Blood hemoglobin measurement (mass/volume)on 09-06-2019 Hemoglobin (Bld) [Mass/Vol] 13.0 g/dL 11.8-15.4 [facility] Blood leukocytes automated c ount (number/volume)on 09-06-2019 WBC (Bld) [#/Vol] 8.0 10*3/uL 3.8-11.6 [facility] Blood neutrophil count by au tomated method (number/volume)on 09-06-2019 Neutrophils (Bld) [#/Vol] 6.3 10*3/uL 1.8-7.7 [facility] Hematocrit [Volume Fraction] of Blood by Automated counton 09-06-2019 Hematocrit (Bld) [Volume fraction] 39.1 % 34.0-46.4 [facility] Otheron 09-06-2019 Nucleated RBC/100 WBC (Bld) [Ratio] 0.0 % 0-0.5 [facility] Serum or plasma beta choriog onadotropin measurement (units/volume)on 09-06-2019 HCG.beta subunit Qn 4195.00 m[IU]/mL [facility] Comment on above: Approximate Approxim ate hCG Gestational Age Range (mIU/ml) (weeks)0.2-1 5-50 1-2 50-500 2-3 100-5,000 3-4 500-10,000 4-5 1,000-50,000 5-6 10,000-100,000 6-8 15,000-200,000 8-12 10,000-100,000 Specific gravity of Urine by Automated test stripon 09-06-2019 Specific gravity (U) [Rel density] 1.015 1.001-1.030 [facility] Squamous epithelial cells de tection in urine sediment by light microscopyon 09-06-2019 Epithelial cells.squamous LM Ql (Urine sed) 10-19 [HPF] [facility] Urinalysison 09-06-2019 Hyaline casts LM Ql (Urine sed) 0-8 [LPF] [facility] Urine bacteria detection by automated methodon 09-06-2019 Bacteria Auto Ql (U) 1+ None Seen [facility] Urine clarity by refractomet ry automatedon 09-06-2019 Clarity Refractometry automated (U) Clear Clear [facility] Urine culture routineon 08-21 Bacteria identified Cx Nom (U) Strep. agalactiae Grp B [facility] Urine glucose measurement by automated test strip (mass/volume)on 09-06-2019 Glucose Auto test strip (U) [Mass/Vol] Normal mg/dL Normal [facility] Urine hemoglobin detection b y automated test stripon 09-06-2019 Hemoglobin Auto test strip Ql (U) Negative Negative [facility] Urine human chorionic gonado tropin (hCG) detection by immunoassayon 09-06-2019 HCG ( test) Ql (U) Positive [facility] Urine ketones measurement by automated test strip (mass/volume)on 09-06-2019 Ketones (U) [Mass/Vol] 1+ Negative [facility] Urine leukocyte esterase det ection by automated test stripon 09-06-2019 Leukocyte esterase Auto test strip Ql (U) 1+ Negative [facility] Urine nitrite detection by t est stripon 09-06-2019 Nitrite Ql (U) Negative Negative [facility] Urine pH measurement by auto mated test stripon 09-06-2019 pH (U) 7.0 [pH] 5.0-9.0 [facility] Urine protein measurement by automated test strip (mass/volume)on 09-06-2019 Protein (U) [Mass/Vol] Negative Negative [facility] Urine total bilirubin detect ion by test stripon 09-06-2019 Bilirubin Ql (U) Negative Negative [facility] Urine urobilinogen measureme nt by automated test strip (mass/volume)on 09-06-2019 Urobilinogen (U) [Mass/Vol] Normal mg/dL Normal [facility] C Cervicalon 08-03-2019 Cervical Culture Microbiology [...] Locations R1: This test was performed at: [facility], [address] [place] [address], [address] , [facility] Comment on above: Performed By: #### 1 [id number] ####[id number] [place] [address] Coding Summary.on 08-03-2019 Coding Summary. CODING DATE: 08/03/2019 FINAL [facility] STATUS: Home (Routine DC) PAYOR: Teofilo [...] Belinda Person Date Saved: 08/03/2019 05:45 am [facility] Coding Summary.on 08-02-2019 Coding Summary. CODING DATE: 08/02/2019 FINAL [facility] STATUS: Home (Routine DC) PAYOR: [place] ADMIT DX: REASON FOR VISIT DX: N89.8 [...] Person Date Saved: 08/02/2019 08:55 am Normal [facility] ED Clinical Summaryon 2018 ED Clinical Summary [place] [id number] ED Clinical Summary Person Information Name: BEATRIS MACK Monique/[facility] Age: 19 Years : 2000 12:00 AM Sex: Female Language: Lithuanian PCP: Jeanine Gimenez DO Marital Status: Single Phone: [phone] Visit Id: Visit Reason: STD exposure; VAGINAL [...] 08/02/2019 2:51 PM 08/02/2019 2:51 PM ADDRESS: [address] [place] [id number] PHYS DOC NOTES: MEDICAL INFORMATION: Prescriptions Given: PATIENT EDUCATION INFORMATION: Instructions: Sexually Transmitted Disease Follow up: With: Address: When: Jeanine Gimenez [facility] [address], [address] [address] Business (1) In 3 days 08/05/2019 DIAGNOSIS: STD exposure Normal [facility] ED Note-Physicianon 08-02-20 ED Note-Physician Basic Information [...] She does have appointment next week with COMMUNITY RELATIONS MANAGER for follow-up, and is educated that she [...] EST [address] [place] [address]- Business (1) Additional Instructions: Patient Education Sexually Transmitted Disease Attestation Patient seen and evaluated by the physician seed laboratory assistant. Attending physician was present in the emergency department and supervised care. This report was transcribed using voice recognition software. Every effort was made to ensure accuracy, however, inadvertently computerized white shoe examiner mistakes may be present. Problem List/Past Medical [...] Diagnostic Results No qualifying data available. Normal [facility] Comment on above: Result Comment: Elec tronically [...] Document Reviewed: 03/28/2014 ExitCare? Patient Information ?2014 [employer]. This information is not intended to replace advice given to you by your health care provider. Make sure you discuss any questions you have with your health care provider. Normal [facility] ED Patient Summaryon 019 ED Patient Summary [address] [address] Patient Discharge Instructions Person Information Name: BEATRIS MACK Age: 19 Years Arrival Date: 08/02/2019 1:44 PM Discharge Diagnosis: STD exposure Primary Care Physician: Jeanine Gimenez DO Provider Information Primary Provider: Bartolo Randolph DO Advanced Wirer Passenger Car:Agusto Oshea PA-C The exam and treatment you received in the Emergency Department were for an urgent problem and are not intended as complete care. It is important that you follow up with a doctor, nurse practitioner, or physician?s seed laboratory assistant for ongoing care. If your symptoms [...] Follow-up Instructions: With: Address: When: Jeanine Gimenez [facility] [address], [facility] [address] [place] [address] Business (1) In 3 days 08/05/2019 In the event that this physician does not participate in your insurance network, please consult with your insurance company to find a nearby participating provider. Patient Education Materials: Sexually Transmitted Disease A MESSAGE TO ALL PATIENTS REGARDING OPIOIDS PRESCRIPTION OPIOIDS: WHAT YOU NEED TO KNOW Prescription opioids can be used to help relieve muzvcudf-ky-nixzmc pain and are often prescribed following a [...] be struggling with addiction, tell your health medical care administrator and ask for guidance or call [facility]?S National Helpline at 2-386-050-NVIG. y Source: [place] Department of Health and Human Services/Center for Disease Control & Prevention [facility] Medications Given: Medication Dose Route No medications found. Medication Information: Medications to Continue with No Changes Other Medications metronidazole (Flagyl 500 mg Tab) 1 Tabs By Mouth every 12 hours for 7 Days. Refills: 0. Comment: Pharmacy Information: Trav [facility] Thank you for choosing [facility] Patient Education Materials: Sexually Transmitted Disease A [...] Document Reviewed: 03/28/2014 ExitCare? Patient Information ?2014 [employer]. This information is not intended to replace advice given to you by your health care provider. Make sure you discuss any questions you have with your health care provider. I, BEATRIS MACK , have received the following patient education materials/instructions and have verbalized understanding: Patient Education Materials: Sexually Transmitted Disease Follow-up Instructions: With: Address: When: Jeanine Gimenez [address] [place], [place] [address]dict [place] , [address] [address] [facility] (1) In 3 days 08/05/2019 Prescriptions: Patient Signature Date Clinician/Nurse Signature ___ Date 08/02/19 14:51:07 Normal [facility] ED Clinical Summaryon 2018 ED Clinical Summary [address] [address] ED Clinical Summary Person Information Name: BEATRIS MACK [place] Age: 19 Years : 2000 12:00 AM Sex: Female Language: Lithuanian PCP: Jeanine Gimenez DO Marital Status: Single Phone: [phone] Visit Id: Visit Reason: Vaginal pain; Vaginal [...] 08/01/2019 12:06 PM 08/01/2019 12:06 PM ADDRESS: [address] [place] [id number] PHYS DOC NOTES: MEDICAL INFORMATION: Prescriptions Given: Prescription Display metronidazole (Flagyl 500 mg Tab) 500 mg = 1 tab(s), Oral, q12hr, X 7 day(s), # 14 tab(s), Refills(s) 0 PATIENT EDUCATION INFORMATION: Instructions: Trichomoniasis; Sexually Transmitted Disease; Safe Sex; Cervicitis Follow up: With: Address: When: Saida BAIG [address] [place] [address] Business (1) In 3 days 08/04/2019 DIAGNOSIS: Cervicitis; STD exposure Normal [facility] ED Note-Physicianon 08-01-20 ED Note-Physician Basic Information [...] sexual practices, and is to follow-up with COMMUNITY RELATIONS MANAGER and PCP.Patient was encouraged to return to [...] BAIG In 3 days 08/04/2019 EST [address] [place] [address] [facility] (1) Additional Instructions: Patient Education Trichomoniasis Sexually Transmitted Disease Safe Sex Cervicitis Attestation Patient seen and evaluated by the physician seed laboratory assistant. Attending physician was present in the emergency department and supervised care. This report was transcribed using voice recognition software. Every effort was made to ensure accuracy, however, inadvertently computerized white shoe examiner mistakes may be present. ATTENDING NOTE: I [...] Diagnostic Results No qualifying data available. Normal [facility] Comment on above: Result Comment: Elec tronically [...] Document Reviewed: 03/28/2014 ExitCare? Patient Information ?2015 [employer]. This information is not intended to replace [...] Document Reviewed: 03/01/2014 ExitCare? Patient Information ?2015 [employer]. This information is not intended to replace [...] ? Your health care provider may recommend dhxa-gjq-lpqgkuz medicines or creams to decrease itching or irritation. ? Your sexual partner will need to be treated if infected. HOME CARE INSTRUCTIONS ? Take medicines only as directed by your health care provider. ? Take wtrm-ifw-hazavtq medicine for itching or irritation as directed [...] Document Reviewed: 06/19/2014 ExitCare? Patient Information ?2015 [employer]. This information is not intended to replace [...] Document Reviewed: 02/28/2013 ExitCare? Patient Information ?2014 [employer]. This information is not intended to replace advice given to you by your health care provider. Make sure you discuss any questions you have with your health care provider. Normal [facility] ED Patient Summaryon 019 ED Patient Summary [address] [address] Patient Discharge Instructions Person Information Name: BEATRIS MACK Age: 19 Years Arrival Date: 08/01/2019 11:15 AM Discharge Diagnosis: Cervicitis; STD exposure Primary Care Physician: Jeanine Gimenez DO Provider Information Primary Provider: Joanne Lutz Advanced Wirer Passenger Car:Agusto Oshea PA-C The exam and treatment you received in the Emergency Department were for an urgent problem and are not intended as complete care. It is important that you follow up with a doctor, nurse practitioner, or physician?s seed laboratory assistant for ongoing care. If your symptoms [...] With: Address: When: Saidalatisha BAIG [address] [place] [address] Business (1) In 3 days [...] opioids can be used to help relieve pcjyxfvn-sb-qzftdi pain and are often prescribed following a [...] be struggling with addiction, tell your health medical care administrator and ask for guidance or call [facility] National Helpline at 1-984-483-TUDW. d Source: US Department of Health and Human Services/Center for Disease Control & Prevention [facility] Medications Given: Medication Dose Route azithromycin 1000.00 mg Oral ceftriaxone 250.00 mg IntraMuscular Left Gluteus Medius fluconazole 150.00 mg Oral Medication Information: New Medications Printed Prescriptions metronidazole (Flagyl 500 mg Tab) 1 Tabs By Mouth every 12 hours for 7 Days. Refills: 0. Comment: Pharmacy Information: [facility] Thank you for choosing [facility] Patient Education Materials: Trichomoniasis Trichomoniasis is an [...] ? Your health care provider may recommend fgui-ijk-mpmjxfx medicines or creams to decrease itching or irritation. ? Your sexual partner will need to be treated if infected. HOME CARE INSTRUCTIONS ? Take medicines only as directed by your health care provider. ? Take wmip-lxb-luvyqjb medicine for itching or irritation as directed [...] Document Reviewed: 06/19/2014 ExitCare? Patient Information ?2015 [employer]. This information is not intended to replace [...] Document Reviewed: 03/28/2014 ExitCare? Patient Information ?2014 [employer]. This information is not intended to replace [...] Document Reviewed: 02/28/2013 ExitCare? Patient Information ?2014 [employer]. This information is not intended to replace [...] Document Reviewed: 03/01/2014 ExitCare? Patient Information ?2015 [employer]. This information is not intended to replace advice given to you by your health care provider. Make sure you discuss any questions you have with your health care provider. FREDERICK Stein HAYLEE T , have received the following patient education materials/instructions and have verbalized understanding: Patient Education Materials: Trichomoniasis; Sexually Transmitted Disease; Safe Sex; Cervicitis Follow-up Instructions: With: Address: When: Saida BAIG [address] [place] [address] Business (1) In 3 days 08/04/2019 Prescriptions: [metronidazole (Flagyl 500 mg Tab)] Patient Signature Date Clinician/Nurse Signature ___ Date 08/01/19 12:06:35 [facility] Pre-Arrival Noteon 9 Pre-Arrival Note Pre-Arrival Summary Name: pihl Current Date: 08/01/2019 11:16:54 EST Gender: Female Date of : Age: 89 Pre-Arrival Type: EMS ETA: 08/01/2019 11:29:00 EST Primary Care Physician: Presenting Problem: fall, posterior head lac. Pre-Arrival User: Dominique Matamoros RN Referring Source: Location: [place] Completion Date/Time: 08/01/19 10:59:00 [facility] Emergency Department Pre-Hospital Report Form Vital Signs: Pre-Hospital Report: Treatment in Route: Response to Treatment: Misc. Issues: Normal [facility] CNPTOUTREACHon 05-06-2019 CNPTOUTREACH Patient Outreach (NEPHMN) BEATRIS MACK ([id number]) 1 F Date Time Provider Department 05/06/19 SATISH VILLALPANDO NEPHMN During your visit today, we recorded the following information about you: Allergies As of Date: 05/06/2019 (Not on File) Date Reviewed: Never Reviewed Visit Diagnosis:Screening for genitourinary condition [Z13.89] Order(s):UA CHEMSTRIP ONLY [SQUA] Order #: [id number] Problem List As Of Date: 05/06/2019 (None) Encounter Status:Closed by EPIC, PRODUSER on 05/23/19 Normal [facility] Vital Signs Date Time Vital Sign Value Performing Clinician Facility 03-27-2025 11:07-0400 Body height 170.2 cm Rowdy Honeycutt DPM Work Phone: [facility] 03-27-2025 11:07-0400 Body mass index (BMI) [Ratio] 27.41 kg/m2 Rowdy Honeycutt DPM Work Phone: [facility] 03-27-2025 11:07-0400 Body weight 79.38 kg Rowdy Honeycutt DPM Work Phone: [facility] 03-27-2025 11:07-0400 Respiratory rate 18 /min Rowdy Honeycutt DPM Work Phone: [facility] 03-21-2025 13:10-0400 Body height 170.2 cm Rowdy Honeycutt DPM Work Phone: [facility] 03-21-2025 13:10-0400 Body mass index (BMI) [Ratio] 27.41 kg/m2 Rowdy Honeycutt DPM Work Phone: [facility] 03-21-2025 13:10-0400 Body weight 79.38 kg Rowdy Honeycutt DPM Work Phone: [facility] 03-21-2025 13:10-0400 Respiratory rate 18 /min Rowdy Honeycutt DPM Work Phone: [facility] 03-08-2025 14:32-0400 Body height 170.18 cm Shad Alamo DO Work Phone: [facility] 03-08-2025 14:32-0400 Body mass index (BMI) [Ratio] 27.7 kg/m2 Shad Alamo DO Work Phone: [facility] 03-08-2025 14:32-0400 Body temperature 98 [degF] Shad Alamo DO Work Phone: [facility] 03-08-2025 14:32-0400 Body weight 80.28 kg Shad Alamo DO Work Phone: [facility] 03-08-2025 14:32-0400 Diastolic blood pressure 70 mm[Hg] Shad Jasmeet DO Work Phone: [facility] 03-08-2025 14:32-0400 Heart rate 78 /min Shad Alamo DO Work Phone: [facility] 03-08-2025 14:32-0400 Respiratory rate 18 /min Shad Jasmeet DO Work Phone: [facility] 03-08-2025 14:32-0400 SaO2% (BldA) [Mass fraction] 98 % Shad Jasmeet DO Work Phone: [facility] 03-08-2025 14:32-0400 Systolic blood pressure 130 mm[Hg] Shad Jasmeet DO Work Phone: [facility] 03-02-2025 16:22-0400 Body height 170.18 cm Shad Jasmeet DO Work Phone: [facility] 03-02-2025 16:22-0400 Body temperature 99.2 [degF] Shadchaya Alamo DO Work Phone: [facility] 03-02-2025 16:22-0400 Body weight 81.6 kg Shad Alamo DO Work Phone: [facility] 03-02-2025 16:22-0400 Diastolic blood pressure 83 mm[Hg] Shad Alamo DO Work Phone: [facility] 03-02-2025 16:22-0400 Heart rate 98 /min Shad Alamo DO Work Phone: [facility] 03-02-2025 16:22-0400 Respiratory rate 20 /min Shad Alamo DO Work Phone: [facility] 03-02-2025 16:22-0400 SaO2% (BldA) [Mass fraction] 98 % Shad Alamo DO Work Phone: [facility] 03-02-2025 16:22-0400 Systolic blood pressure 125 mm[Hg] Shad Alamo DO Work Phone: [facility] 02-28-2025 17:34-0400 Body height 170.18 cm Shad Alamo DO Work Phone: [facility] 02-28-2025 17:34-0400 Body temperature 98.1 [degF] Shad Alamo DO Work Phone: [facility] 02-28-2025 17:34-0400 Body weight 80.75 kg Shad Alamo DO Work Phone: [facility] 02-28-2025 17:34-0400 Diastolic blood pressure 83 mm[Hg] Shad Alamo DO Work Phone: [facility] 02-28-2025 17:34-0400 Heart rate 81 /min Shad Alamo DO Work Phone: [facility] 02-28-2025 17:34-0400 Respiratory rate 18 /min Shad Alamo DO Work Phone: [facility] 02-28-2025 17:34-0400 SaO2% (BldA) [Mass fraction] 97 % Shad Alamo DO Work Phone: [facility] 02-28-2025 17:34-0400 Systolic blood pressure 133 mm[Hg] Shad Alamo DO Work Phone: [facility] 07-11-2024 16:00-0400 Diastolic blood pressure 76 mm[Hg] PHYSICIAN NO [facility] 07-11-2024 16:00-0400 Heart rate 76 /min PHYSICIAN NO [facility] 07-11-2024 16:00-0400 Respiratory rate 16 /min PHYSICIAN NO [facility] 07-11-2024 16:00-0400 SaO2% (BldA) [Mass fraction] 98 % PHYSICIAN NO [facility] 07-11-2024 16:00-0400 Systolic blood pressure 124 mm[Hg] PHYSICIAN NO [facility] 07-11-2024 13:07-0400 Body height 170.18 cm PHYSICIAN NO [facility] 07-11-2024 13:07-0400 Body temperature 98.6 [degF] PHYSICIAN NO [facility] 07-11-2024 13:07-0400 Body weight 81.25 kg PHYSICIAN NO [facility] 01-15-2024 23:37-0400 Diastolic blood pressure 80 mm[Hg] PHYSICIAN NO [facility] 01-15-2024 23:37-0400 Heart rate 68 /min PHYSICIAN NO [facility] 01-15-2024 23:37-0400 Respiratory rate 18 /min PHYSICIAN NO [facility] 01-15-2024 23:37-0400 SaO2% (BldA) [Mass fraction] 96 % PHYSICIAN NO [facility] 01-15-2024 23:37-0400 Systolic blood pressure 136 mm[Hg] PHYSICIAN NO [facility] 01-15-2024 19:53-0400 Body height 170.18 cm PHYSICIAN NO [facility] 01-15-2024 19:53-0400 Body temperature 98.3 [degF] PHYSICIAN NO [facility] 01-15-2024 19:53-0400 Body weight 80 kg PHYSICIAN NO [facility] 10-14-2023 03:58-0500 Body height 170.18 cm PHYSICIAN NO [facility] 10-14-2023 03:58-0500 Body temperature 99.1 [degF] PHYSICIAN NO [facility] 10-14-2023 03:58-0500 Body weight 75 kg PHYSICIAN NO [facility] 10-14-2023 03:58-0500 Diastolic blood pressure 99 mm[Hg] PHYSICIAN NO [facility] 10-14-2023 03:58-0500 Heart rate 97 /min PHYSICIAN NO [facility] 10-14-2023 03:58-0500 Respiratory rate 18 /min PHYSICIAN NO [facility] 10-14-2023 03:58-0500 SaO2% (BldA) [Mass fraction] 98 % PHYSICIAN NO [facility] 10-14-2023 03:58-0500 Systolic blood pressure 147 mm[Hg] PHYSICIAN NO [facility] 08-26-2023 23:03-0500 Body height 170.18 cm PHYSICIAN NO [facility] 08-26-2023 23:03-0500 Body temperature 98 [degF] PHYSICIAN NO [facility] 08-26-2023 23:03-0500 Body weight 79.37 kg PHYSICIAN NO [facility] 08-26-2023 23:03-0500 Diastolic blood pressure 96 mm[Hg] PHYSICIAN NO [facility] 08-26-2023 23:03-0500 Heart rate 76 /min PHYSICIAN NO [facility] 08-26-2023 23:03-0500 Respiratory rate 16 /min PHYSICIAN NO [facility] 08-26-2023 23:03-0500 SaO2% (BldA) [Mass fraction] 99 % PHYSICIAN NO [facility] 08-26-2023 23:03-0500 Systolic blood pressure 134 mm[Hg] PHYSICIAN NO [facility] 12-20-2022 20:53-0400 Body height 170.18 cm PHYSICIAN NO [facility] 12-20-2022 20:53-0400 Body temperature 98.1 [degF] PHYSICIAN NO [facility] 12-20-2022 20:53-0400 Body weight 77.2 kg PHYSICIAN NO [facility] 12-20-2022 20:53-0400 Diastolic blood pressure 75 mm[Hg] PHYSICIAN NO [facility] 12-20-2022 20:53-0400 Heart rate 83 /min PHYSICIAN NO [facility] 12-20-2022 20:53-0400 Respiratory rate 16 /min PHYSICIAN NO [facility] 12-20-2022 20:53-0400 SaO2% (BldA) [Mass fraction] 97 % PHYSICIAN NO [facility] 12-20-2022 20:53-0400 Systolic blood pressure 128 mm[Hg] PHYSICIAN NO [facility] 08-22-2022 22:16-0500 Body height 170.18 cm PHYSICIAN NO [facility] 08-22-2022 22:16-0500 Body temperature 97.2 [degF] PHYSICIAN NO [facility] 08-22-2022 22:16-0500 Body weight 90.9 kg PHYSICIAN NO [facility] 08-22-2022 22:16-0500 Diastolic blood pressure 84 mm[Hg] PHYSICIAN NO [facility] 08-22-2022 22:16-0500 Heart rate 86 /min PHYSICIAN NO [facility] 08-22-2022 22:16-0500 Respiratory rate 18 /min PHYSICIAN NO [facility] 08-22-2022 22:16-0500 SaO2% (BldA) [Mass fraction] 98 % PHYSICIAN NO [facility] 08-22-2022 22:16-0500 Systolic blood pressure 154 mm[Hg] PHYSICIAN NO [facility] 11-10-2019 22:26-0500 BMI (Body Mass Index) 24.7 kg/m2 FAMILY [facility] 11-10-2019 22:26-0500 Body Temperature 98.8 [degF] FAMILY [facility] 11-10-2019 22:26-0500 Body weight 71.7 kg FAMILY NO [facility] 11-10-2019 22:26-0500 BP Diastolic 78 mm[Hg] FAMILY NO [facility] 11-10-2019 22:26-0500 BP Systolic 131 mm[Hg] FAMILY NO [facility] 11-10-2019 22:26-0500 Height 170.18 cm [facility] NO [facility] 11-10-2019 22:26-0500 Pulse (Heart Rate) 76 /min FAMILY [facility] 11-10-2019 22:26-0500 Pulse Oximetry 99 % [facility] NO [facility] 11-10-2019 22:26-0500 Respiratory Rate 16 /min FAMILY [facility] 10-19-2019 22:43-0500 BP Diastolic 58 mm[Hg] FAMILY NO [facility] 10-19-2019 22:43-0500 BP Systolic 110 mm[Hg] FAMILY NO [facility] 10-19-2019 22:43-0500 Pulse (Heart Rate) 75 /min [facility] 10-19-2019 22:43-0500 Pulse Oximetry 99 % FAMILY NO [facility] 10-19-2019 22:43-0500 Respiratory Rate 18 /min [facility] 10-19-2019 17:47-0500 BMI (Body Mass Index) 24.8 kg/m2 FAMILY NO [facility] 10-19-2019 17:47-0500 Body Temperature 98.1 [degF] [facility] 10-19-2019 17:47-0500 Body weight 72.05 kg FAMILY NO [facility] 10-19-2019 17:47-0500 Height 170.18 cm FAMILY NO [facility] 10-02-2019 20:23-0500 BP Diastolic 63 mm[Hg] FAMILY NO [facility] 10-02-2019 20:23-0500 BP Systolic 131 mm[Hg] FAMILY NO [facility] 10-02-2019 20:23-0500 Pulse (Heart Rate) 79 /min [facility] 10-02-2019 20:23-0500 Pulse Oximetry 97 % FAMILY NO [facility] 10-02-2019 20:23-0500 Respiratory Rate 16 /min [facility] 10-02-2019 18:13-0500 BMI (Body Mass Index) 24.5 kg/m2 FAMILY NO [facility] 10-02-2019 18:13-0500 Body Temperature 98 [degF] [facility] 10-02-2019 18:13-0500 Body weight 71.25 kg FAMILY NO [facility] 10-02-2019 18:13-0500 Height 170.18 cm FAMILY NO [facility] 09-06-2019 23:41-0500 BP Diastolic 76 mm[Hg] FAMILY NO [facility] 09-06-2019 23:41-0500 BP Systolic 136 mm[Hg] [facility]ILY [facility] 09-06-2019 23:41-0500 Pulse (Heart Rate) 109 /min [facility] 09-06-2019 23:41-0500 Pulse Oximetry 97 % [facility] 09-06-2019 23:41-0500 Respiratory Rate 20 /min [facility] 09-06-2019 21:43-0500 Body Temperature 99.4 [degF] [facility] 09-06-2019 19:08-0500 BMI (Body Mass Index) 24.5 kg/m2 [facility] 09-06-2019 19:08-0500 Body weight 71.2 kg [facility] 09-06-2019 19:08-0500 Height 170.18 cm [facility] Encounters Encounter Date Encounter Type [...] encounter procedure Shad Alamo DO -[facility] [place] Work Phone: Start: 03-23-2025 End: 03-23-2025 ambulatory Shad Alamo DO Work Phone: [facility] Work Phone: Start: 03-21-2025 End: 03-21-2025 Patient encounter procedure LEN Saab -[facility] Start: 03-21-2025 End: 03-21-2025 ambulatory Shad Alamo DO Work Phone: [facility] Work Phone: Start: 03-21-2025 End: 03-21-2025 Bamboo [...] End: 03-08-2025 Patient encounter procedure Lluvia Schmidt STRUCTURAL BIOLOGIST -[facility] [place] Work Phone: Start: 03-02-2025 End: 03-02-2025 Emergency department patient visit Shad Alamo DO Work Phone: -Emergency Room Work Phone: Start: 02-28-2025 End: 02-28-2025 Emergency department patient visit Shad Alamo DO Work Phone: [facility]-Emergency Room Work Phone: Start: 02-23-2025 End: 02-23-2025 External Result Encounter Anuja Saab MD Work Phone: [facility] External Department Unsolicited Start: 02-23-2025 End: 02-23-2025 External Result Encounter Anuja Saab MD Work Phone: [facility] External Department Unsolicited Start: 02-23-2025 End: 02-23-2025 Patient encounter procedure Shad Alamo DO Work Phone: [facility] [place] Work Phone: Start: 02-23-2025 End: 02-23-2025 Orders Only Anuja Saab MD Work Phone: [facility] OB Comment on above: Anemia, unspecified type (Primary Dx) Start: 02-22-2025 End: 02-22-2025 Patient encounter procedure Shad Alamo DO Work Phone: [facility] Start: 02-22-2025 End: 02-22-2025 ambulatory Shad Alamo DO Work Phone: [facility] Work Phone: Start: 02-22-2025 End: 02-28-2025 External Result Encounter Anuja Saab MD Work Phone: [facility] External Department Unsolicited Start: 02-22-2025 End: 02-28-2025 External Result Encounter Anuja Saab MD Work Phone: [facility] External Department Unsolicited Start: 02-22-2025 End: 02-23-2025 Telephone encounter Nhi Castro RN [facility] Start: 02-22-2025 End: 02-22-2025 flow sheet [facility] Nurse [facility] OB Comment on above: GA: [id number] Start: 02-22-2025 End: 02-22-2025 ambulatory ANUJA SAAB Not Available Start: 02-15-2025 End: 02-15-2025 Patient encounter procedure [facility] Start: 02-15-2025 End: 02-15-2025 ambulatory Shad Alamo DO Work Phone: [facility] Work Phone: Start: 02-01-2025 End: 02-01-2025 Patient encounter procedure Shad Alamo DO [facility] Start: 02-01-2025 End: 02-01-2025 ambulatory Shad Alamo DO Work Phone: [facility] Work Phone: Start: 09-24-2024 End: 09-24-2024 ambulatory PHYSICIAN NO [facility] Work Phone: Start: 09-24-2024 End: 09-24-2024 Departed Referred PHYSICIAN NO [facility]-LAB Path Spec [facility] Start: 07-14-2024 End: 07-14-2024 [facility] Start: 07-11-2024 End: 07-11-2024 Emergency department patient visit PHYSICIAN NO [facility]-Emergency Room Work Phone: Start: 01-15-2024 End: 01-15-2024 Emergency department patient visit PHYSICIAN NO [facility]gency [facility] Work Phone: Start: 10-14-2023 End: 10-14-2023 Emergency department patient visit PHYSICIAN NO [facility] Work Phone: Start: 08-26-2023 End: 08-27-2023 Emergency department patient visit PHYSICIAN NO [facility]gency [facility] Work Phone: Start: 06-03-2023 End: 06-03-2023 Emergency department patient visit PHYSICIAN NO [facility] Work Phone: Start: 12-20-2022 End: 12-20-2022 Emergency department patient visit PHYSICIAN NO [facility] Work Phone: Start: 08-22-2022 End: 08-23-2022 Emergency department patient visit PHYSICIAN NO [facility]-Emergency Room Start: 06-07-2022 End: 06-07-2022 [...] Work Phone: Start: 02-22-2025 Antibody screen Service [facility] Senior Comment on above: Order Comment: JUANITA [email or web address] Result Comment: PERF ORMED BY: [facility] [address] [facility] [place] [address] PATHOLOGIST TEACHER ASSISTANT CALLI JAFFE M.D. Start: 02-22-2025 Complete blood [...] laboratory evidence of HIV infection.HIV NegativePerformed at: [address] [id number] Director: Shai Marmolejo PhD, Phone: [phone] Start: 02-22-2025 [facility] LAB Anuja tina MD Work Phone: Start: 02-22-2025 Urine culture [...] OB [address] [place] [address] Anuja Saab MD [address] [facility] [address] [place] [address] [facility] Start: 04-11-2025 End: 04-11-2025 ambulatory 04/11/2025 11:00 AM EDT Initial [facility] [address] [place] [phone] Anuja Saab MD [address] [place] [address] [facility] Start: 04-05-2025 End: 04-05-2025 Patient encounter procedure 04/05/2025 2:50 PM EDT Office Visit [facility] [address] [place] [phone] Rowdy Honeycutt, DPM [address] [facility] [address] [place] [address] [facility] Start: 03-28-2025 End: 03-28-2025 ambulatory 03/28/2025 2:30 PM EDT Evaluation [facility] PT [address] [place] [address] Meaghan Young, PT [facility] Start: 03-27-2025 End: 03-27-2025 Patient encounter procedure 03/27/2025 11:10 AM EDT Office Visit [facility] [address] [place] [place] [address] Rowdy Honeycutt, DPM [address] [facility] [address] [place] [address] Closed fracture of proximal end of right fibula, unspecified fracture morphology, initial encounter (Primary Dx) [facility] Comment on above: Closed fracture of p roximal end of right fibula, unspecified fracture morphology, initial encounter (Primary Dx) Start: 03-27-2025 End: 03-27-2025 Professional / ancillary services management 03/27/2025 8:00 AM EDT Ancillary Procedure [facility] [address] [place] [phone] [facility] Start: 03-22-2025 End: 03-22-2025 Patient encounter procedure 03/22/2025 1:00 PM EDT Office Visit [facility] OB [address] [place] [phone] Anuja Saab MD [address] [place] [address] [facility] Start: 03-21-2025 End: 03-21-2025 Patient encounter procedure 03/21/2025 1:00 PM EDT Office Visit [facility] [address] [facility] [place] [phone] Rowdy Honeycutt, DPM [address] [facility] [address] [place] [address] Arrived [facility] Comment on above: Arrived Start: 03-15-2025 End: 03-15-2025 Patient encounter procedure 03/15/2025 10:45 AM EDT Office Visit [facility] OB [address] [place] [phone] Anuja Saab MD [address] [place] [address] [facility] Start: 02-22-2025 End: 02-22-2025 Urine culture [facility] Start: 02-22-2025 [facility] Start: 02-22-2025 End: 02-22-2026 Bacteria identified in Urine by Culture [facility] Comment on above: Expected: 02/22/2025 , Expires: 02/22/2026 Start: 02-22-2025 End: 02-22-2026 Blood type and Indirect antibody screen panel - Blood Type and screen Lab Routine care, subsequent in first trimester Expected: 02/22/2025, Expires: 02/22/2026 [facility] Comment on above: Expected: 02/22/2025 , Expires: 02/22/2026 Start: 02-22-2025 End: 02-22-2026 CBC W Auto Differential panel - Blood CBC and differential Lab Routine care, subsequent in first trimester Expected: 02/22/2025, Expires: 02/22/2026 [facility] Comment on above: Expected: 02/22/2025 , Expires: 02/22/2026 Start: 02-22-2025 End: 02-22-2026 DRUG SCREEN 17 W/CONF, UR DRUG SCREEN 17 W/CONF, UR Lab Routine Encounter for drug screening Expected: 02/22/2025, Expires: 02/22/2026 [facility] Comment on above: Expected: 02/22/2025 , Expires: 02/22/2026 Start: 02-22-2025 End: 02-22-2026 hCG, quantitative, hCG, quantitative, Lab Routine examination or test, positive result Expected: 02/22/2025 (Approximate), Expires: 02/22/2026 [facility] Work Phone: Comment on above: Expected: 02/22/2025 (Approximate), Expires: 02/22/2026 Start: 02-22-2025 End: 02-22-2026 Hepatitis B virus surface Ag [Presence] in Serum or Plasma by Immunoassay [facility] Comment on above: Expected: 02/22/2025 , Expires: 02/22/2026 Start: 02-22-2025 End: 02-22-2026 Hepatitis C virus Ab [Presence] in Serum or Plasma by Immunoassay Hepatitis C antibody Lab Routine care, subsequent in first trimester Expected: 02/22/2025, Expires: 02/22/2026 [facility] Comment on above: Expected: 02/22/2025 , Expires: 02/22/2026 Start: 02-22-2025 End: 02-22-2026 HIV-2 antigen assay HIV-2 antigen Lab Routine care, subsequent in first trimester Expected: 02/22/2025, Expires: 02/22/2026 [facility] Comment on above: Expected: 02/22/2025 , Expires: 02/22/2026 Start: 02-22-2025 End: 02-22-2026 Rpr (dx) w/refl titer and confirmatory testing Rpr (dx) w/refl titer and confirmatory testing Lab Routine care, subsequent in first trimester Expected: 02/22/2025, Expires: 02/22/2026 [facility] Comment on above: Expected: 02/22/2025 , Expires: 02/22/2026 Start: 02-22-2025 End: 02-22-2026 Rubella antibody, IgG Rubella antibody, IgG Lab Routine care, subsequent in first trimester Expected: 02/22/2025, Expires: 02/22/2026 [facility] Comment on above: Expected: 02/22/2025 , Expires: 02/22/2026 Start: 02-22-2025 End: 02-22-2026 Urinalysis complete panel - Urine [facility] Work Phone: Comment on above: Expected: 02/22/2025 , Expires: 02/22/2026 Start: 09-24-2024 Urine culture [facility] Start: 09-24-2024 Bacteria identified in Urine by Culture Urine Culture [facility] Start: 01-15-2024 CT Abdomen and Pelvi s WO contrast [facility] Start: 01-15-2024 CT of abdomen and pe lvis without contrast CT abdomen pelvis wo con [facility] Start: 01-15-2024 Bacteria identified in Urine by Culture [facility] Start: 10-14-2023 Bacteria identified in Urine by Culture [facility] Start: 10-14-2023 Genital Culture Genital Culture [facility] Start: 10-14-2023 [facility] Start: 08-26-2023 [facility] Start: 08-26-2023 Bacteria identified in Urine by Culture [facility] Start: 12-20-2022 [facility] Start: 12-20-2022 Bacteria identified in Urine by Culture Urine Culture [facility] Start: 08-22-2022 [facility] Bacteria identified in Genital specimen by Aerobe culture [facility] Work Phone: Bacteria identified in Genital specimen by Aerobe culture [facility] Bacteria identified in Genital specimen by Aerobe culture [facility] Bacteria identified in Urine by Culture [facility] Chlamydia trachomati s DNA [Presence] in Unspecified specimen by LEV with probe detection [facility] Hepatitis C virus Ig G Ab [Presence] in Serum or Plasma by Immunoassay [facility] HIV 1+2 Ab+HIV1 p24 Ag [Presence] in Serum or Plasma by Immunoassay [facility] HIV-1/HIV-2 antigen/antibody combination immunoassay HIV-1 and HIV-2 antibodies Lab Routine 02/22/2025 2:20 PM EDT [facility] Work Phone: Measles virus IgG Ab [Units/volume] in Serum by Immunoassay [facility] Neisseria gonorrhoea e DNA [Presence] in Unspecified specimen by LEV with probe detection [facility] Patient Education [facility] Patient referral [facility] Reagin Ab [Presence] in Serum by RPR [facility] RPR W/RFX TO QUANT & TP ABS ([facility]) RPR W/RFX TO QUANT & TP ABS ([facility]) Lab Routine 02/22/2025 2:20 PM EDT [facility] Healthcare Thyroid stimulating immunoglobulins actual/normal in Serum [facility] Trichomonas vaginali s DNA [Presence] in Unspecified specimen by LEV with probe detection [facility] Immunizations Immunization Date Immunization Notes Care Provider Fa [facility] 04-28-2020 tetanus toxoid, redu julianne diphtheria toxoid, and acellular pertussis vaccine, adsorbed PHYSICIAN NO FAMILY [facility] Payers Date Payer Category Payer Self-pay [id number] 2023 Private Health Insurance [facility] [id number] 2023 Medicaid [id number] 2016 Unknown [id number] 2000 Unknown [id number] 2.16.840.1.388216.3.579.2. 593 2000 Unknown [id number] 2.16.840.1.983167.3.579.2. 173 2000 Unknown [id number] 2.16.840.1.429536.3.579.2. 1259 2000 Unknown [id number] 2.16.840.1.855769.3.579.2. 1259 2000 Unknown [id number] 2.16.840.1.060416.3.579.2. 1259 2000 Unknown [id number] 2.16.840.1.751919.3.579.2. 1259 2000 Unknown [id number] 2.16.840.1.232080.3.579.2. 1259 2000 Unknown [id number] 2.16.840.1.326671.3.579.2. 1259 2000 Unknown [id number] 2.16.840.1.669398.3.579.2. 1259 1959 Unknown [id number] 1959 Unknown [id number] Unknown [id number] Unknown Insurance No [facility] [id number] Unknown Regular Auto/Medical [id number] Unknown [id number] 2.16.840.1.273145.3.579.2. 531 Unknown [id number] 2.16.840.1.749911.3.579.2. 531 Unknown [id number] 2.16.840.1.021095.3.579.2. 531 Unknown [id number] 2.16.840.1.059106.3.579.2. 531 Unknown [id number] 2.16.840.1.303170.3.579.2. 531 Unknown [id number] 2.16.840.1.922412.3.579.2. 531 Unknown [id number] 2.16.840.1.281321.3.579.2. 531 Unknown [id number] 2.16.840.1.122045.3.579.2. 531 Unknown [id number] 2.16.840.1.173729.3.579.2. 531 Unknown [id number] 2.16.840.1.053708.3.579.2. 531 Social History Date Type Detail Facility Start: 11-10-2019 End: 02-22-2025 Tobacco smoking status AKIS Never smoked tobacco (finding) [facility] Start: 2000 Sex Assigned At Female F [facility] Start: 08-22-2022 End: 07-11-2024 Tobacco smoking status NHIS Smoker (finding) [facility] Start: 01-15-2024 Tobacco smoking status AKIS Current some day smoker [facility] Start: 09-26-2024 End: 02-28-2025 Sex Female (finding) [facility] Start: 02-22-2025 Tobacco use and exposure Smokeless tobacco non-user [facility] Start: 02-22-2025 End: 03-27-2025 Alcoholic beverage intake Ex-drinker (finding) [facility] Start: 02-22-2025 End: 03-21-2025 History of Social function [facility] Start: 02-22-2025 End: 03-21-2025 Tobacco use panel [facility] Start: 02-22-2025 Alcohol Comment Caffiene Intak e- Pt reports none due to chronic kidney stones [facility] Start: 02-04-2025 [facility] Start: 2000 Sex assigned at Not on file [facility] Start: 03-02-2025 Tobacco smoking status [facility] Smokes tobacco daily (finding) [facility] NEGATED: Highlighted row [facility] NEGATED: Highlighted row N [facility] Medical Equipment Procedure Code Equipment [...] of right ankle fracture diagnosed that [facility] ER. Patient has been weight-bearing for [...] risks, alternatives, benefits, post op complications and custodial worker expectations were discussed including but not limited to: infection,bone infection,wound dehiscence hardware failure and irritation,wound dehiscence,delay union/mal union/non union of bone. RSDS,neuroma,duty limitations,DVT/PE, CA,nerve damage, scar, loss of sensation, swelling. Pt [...] Rowdy Honeycutt DPM documented in this encounter [facility] 03-23-2025 Radiology Diagnostic study note [facility] [place] [address] [place] [address] Ultrasound Report Signed Patient: Beatris Mack MR#: [id number] : 2000 Acct:[id number] Age/Sex: 24 / F ADM Date: 5 Loc: Room: Type: [facility] Attending Dr: Shad Alamo DO Ordering [...] Bojorquez M.D. 03/23/2025 4:40 PM Dictation Location: [place] [address] Tech: Renetta Beck Transcribed By: RADHA 03/23/25 1640 Dictated By: Shaan Bojorquez DO 03/23/25 1634 Signed By: 03/23/25 1640 [facility] 03-21-2025 History of Present illness Narrative Patient: Beatris Mack : 2000 PCP: No primary care provider on file. SUBJECTIVE This is a 24 y.o. female that presents today for a chief complaint of right ankle fracture diagnosed that [facility] ER. Patient has been weight-bearing for [...] Patient may continue with conservative treatments including kzam-cbh-fykbbtg anti-inflammatories and other treatments suggested today. Patient may want to be scheduled for surgical intervention in the near future. Patient be scheduled in the near future for right fibular ORIF of fracture Rowdy Honeycutt DPM documented in this encounter [facility] 03-08-2025 Evaluation note Diagnosis Onset Date Resolution Fracture of lateral malleolus of right ankle noneactive March 08, 2025 2:12pm [facility] Work Phone: 1(767) 724-367706-05-2025 History of Present illness Narrative* Anuja Saab MD - 02/23/2025 5:28 PM EDT Low indicies documented in this encounterLake [facility] [id number] Telephone encounter Note* Telephone Encounter - Nhi [...] Encouraged pt to call if symptoms worsen. [facility] [id number] Miscellaneous Notes* Telephone Encounter - Nhi Castro [...] Pt called, requesting labs be sent to [facility]. Labs sent * Telephone Encounter - Nhi [...] to go to hospital. documented in this encounterLake [facility] [id number] Telephone encounter Note* Telephone Encounter - Nhi Castro RN - 02/22/2025 2:03 PM EDT Pt called, requesting labs be sent to [facility]. Labs sent [facility] [id number] Telephone encounter Note* Telephone Encounter - Nhi [...] severe cramping occurs to go to hospital. [facility] [id number] History of Present illness Narrative* Dayna Alvarado [...] MA 02/22/2025 9:27 AM documented in this encounterLake [facility] Health [id number] NoteEducation Materials Obstetrics and Gynecology Trichomoniasis Trichomoniasis [...] . Your health care provider may recommend hqyp-mje-ljldwue medicines or creams to help relieve itching or irritation. You may be tested for infection again 3 months after treatment. Follow these instructions at home: ? Take and use zqbr-sdj-unzsora and prescription medicines, including creams, only as [...] if necessary. This informatio (more content not included)...[facility] noteNo assessment information availableMadison Health Work Phone: Evaluation note* Diagnosis Anemia, unspecified type- Primary documented in this encounter [facility] HealthcareEvaluation note* Diagnosis Urinary tract infection without hematuria, site unspecified- Primary examination or test, positive result [facility]* Diagnosis care, subsequent in first trimester Encounter for drug screening [facility]* Diagnosis Closed fracture of proximal end of right fibula, unspecified fracture morphology, initial encounter- Primary [facility]* Diagnosis Closed fracture of proximal end of right fibula, unspecified fracture morphology, initial encounter- Primary [facility] encounter [facility] Dis[facility] instructions Additional Instructions Do not have sexual intercourse for at least 2 weeks, this includes oral sex You need to use condoms Right all your sexual partners and their sexual partners must be treated Do not have sex again and said everyone has been treated or you will pass disease back in forth You may call [phone] for your results in 3 days Please follow-up with Dr. Saab office Is important that you take your antibiotic as instructed until gone Please return here if you develop any abdominal pain, vaginal bleeding, increased discharge or any other concernMadison Health Work Phone: Hospital Discharge instructions Additional Instructions If your symptoms return/worsen or you develop any further concerns or symptoms please see your doctor or return to the emergency department immediately. Please be sure to follow-up with the results of your tests.[facility] Work Phone: Hospital Discharge instructions Additional Instructions If you end up having bacterial vaginosis or any sexually transmitted infections, we will call you and prescribe appropriate antibiotics. Follow-up with your COMMUNITY RELATIONS MANAGER physician for any persistent symptoms in 5 to 7 days.[facility] Work Phone: Hospital Discharge instructions Additional Instructions If your symptoms return/worsen or you develop any further concerns or symptoms please see your doctor or return to the emergency department immediately.[facility] Work Phone: Reason for referral (narrative)No reason for referral information availableOhio [facility] Work Phone: Summary Purpose Family [...] section and content) DATE CREATED AUTHOR 05/23/2019 [facility] DATE CREATED AUTHOR AUTHOR'S ORGANIZ ATION 06/19/2020 [facility] DATE CREATED AUTHOR AUTHOR'S ORGANIZ ATION 09/12/2021 [facility] DATE CREATED AUTHOR AUTHOR'S ORGANIZ ATION 08/06/2022 [facility] DATE CREATED AUTHOR AUTHOR'S ORGANIZ ATION 07/21/2024 [facility] DATE CREATED AUTHOR AUTHOR'S ORGANIZ ATION 03/26/2025 [facility] DATE CREATED AUTHOR AUTHOR'S ORGANIZ ATION 03/31/2025 [facility] Special[facility] EPIC Care Teams (unrecognized sec tion [...] Status: Active Member Role Status Dates Services [facility] Senior Primary Care Provider Ac tive Team Status: Inactive Member Role Status Dates Shad Alamo DO Attending Provider Active St art: February 15, 2025 End: February 15, 2025 Services [facility] Primary Care Provider Ac tive Start: February 15, 2025 End: February 15, 2025 Pulp Grinder Feeder Relationship Specialty Start Date End Date Ivy Corbin NP [address] [place] [address] [facility] 03/21/24 Pulp Grinder Feeder Relationship Specialty Start Date End Date Ivy Corbin CLAIMS SUPPORT SPECIALIST [address] [place] [address] PCP [facility] 03/21/24 Team Status: Inactive Member Role Status Dates Services [facility] Primary Care Provider Ac tive Start: February 22, 2025 End: February 22, 2025 Anuja Saab MD Attending Provider Active St art: February 22, 2025 End: February 22, 2025 Pulp Grinder Feeder Relationship Specialty Start Date End Date Ivy Corbin CLAIMS SUPPORT SPECIALIST [address] [place] [address] [facility] 03/21/24 Pulp Grinder Feeder Relationship Specialty Start Date End Date Ivy Corbin CLAIMS SUPPORT SPECIALIST [address] [place] [address] [facility] 03/21/24 Pulp Grinder Feeder Relationship Specialty Start Date End Date Ivy Corbin NP [address] [place] [address] [facility] 03/21/24 Team Status: Inactive Member Role Status Dates Services [facility] Primary Care Provider Ac tive Start: February 23, 2025 End: February 23, 2025 Anuja Saab MD Attending Provider Active St art: February 23, 2025 End: February 23, 2025 Pulp Grinder Feeder Relationship Specialty Start Date End Date Ivy Corbin CLAIMS SUPPORT SPECIALIST [address] [place] [address] [facility] 03/21/24 Pulp Grinder Feeder Relationship Specialty Start Date End Date Ivy Corbin CLAIMS SUPPORT SPECIALIST [address] [place] [address] PCP [facility] 03/21/24 Team Status: Inactive Member Role Status Dates Services [facility] Primary Care Provider Ac tive Start: February 28, 2025 End: February 28, 2025 Aura Brown APRN Emergency Provider Active Start: February 28, 2025 End: February 28, 2025 Pulp Grinder Feeder Relationship Specialty Start Date End Date Ivy Corbin CLAIMS SUPPORT SPECIALIST [address] [place] [address] PCP [facility] 03/21/24 Pulp Grinder Feeder Relationship Specialty Start Date End Date Ivy Corbin NP [address] [place] [address] PCP [facility] 03/21/24 Team Status: Inactive Member Role Status Dates Shad Alamo DO Primary Care Provider Active Start: February 01, 2025 End: February 01, 2025 Shad Alamo DO Attending Provider Active St art: February 01, 2025 End: February 01, 2025 Team Status: Inactive Member Role Status Dates [facility] Primary Care Provider Ac tive Start: March 02, 2025 End: March 02, 2025 Brock Mims APRN Emergency Provider Active Start: March 02, 2025 End: March 02, 2025 Team Status: Inactive Member Role Status Dates [facility] Primary Care Provider Ac tive Start: March 08, 2025 End: March 08, 2025 Lluvia Ellis APRN Attending Provider Active Sta rt: March 08, 2025 End: March 08, 2025 Team Status: Inactive Member Role Status Dates [facility] Primary Care Provider Ac tive Start: March 21, 2025 End: March 21, 2025 Anuja Saab MD Attending Provider Active St art: March 21, 2025 End: March 21, 2025 Team Status: Inactive Member Role Status Dates [facility] Primary Care Provider Ac tive Start: March 23, 2025 End: March 23, 2025 Shad Alamo DO Attending Provider Active St art: March 23, 2025 End: March 23, 2025 Pulp Grinder Feeder Relationship Specialty Start Date End Date Ivy Corbin NP [address] [place] [address] PCP - [facility] 03/21/24 Unallocated, Shawna ProviderMD [address] [place] [address] PCP - General Family Medicine 03/22/25 Pulp Grinder Feeder Relationship Specialty Start Date End Date Ivy Corbin NP [address] [place] [address] PCP - [facility] 03/21/24 Unallocated, Shawna ProviderMD [address] [place] [address] PCP - General Family Medicine 03/22/25 Goals [...] BE BASED ON THE PRIMARY CLINICAL RECORDS. [employer] [facility]. provides no warranty or guarantee of the accuracy or completeness of information in this document.
[2025-04-01 20:25] VITALS: BP 132/92; PULSE 97; TEMP 36.2; O2SAT 99; BMI 28.1
--- OUTSIDE RECORDS SUMMARY | 2025-04-01 20:38 | XMS_ITS | CCD ---
Author Organization [facility] Inform ion [facility] MOCK UP BUILDER [facility] Care Team Providers Care Lime Vat Tender Name Role Phone NO, FAMILY PHYSICIAN Primary [...] Unava ilable DO Ken Elias Emergency Provider [phone] DO Felix Simpson Emergency Provider NO FAMILY, [...] Care Provider Shad Alamo DO Attending Provider [phone] [facility] Primary Care [facility] ider [place]ald BAND INSTRUMENT REPAIRER, Ivy R Unavailable [phone] Anuja Saab MD Attending Provider [phone] Aura Brown APRN Emergency Provider Brock Mims APRN Emergency Provider Lluvia Ellis APRN Attending Provider [facility], Services Primary Care [facility] Anuja Saab Attending Unavailable Anuja Saab Admitting Unavailable [facility], Services [facility] Anuja Saab Attending Unavailable Anuja Saab Admitting Unavailable Shad Alamo Admitting Unavailable [facility], Services Primary [facility] Shad Alamo Attending Unavailable Shad Alamo Attending Unavailable Jasmeet, Shad Primary Care Unavailable Shad Alamo Admitting Unavailable [facility], Services Primary [facility] Shad Alamo Attending Unavailable Shad Alamo Admitting Unavailable Brock Mims Admitting Unavailable [facility], Services Primary Care [facility] Brock Mims Attending Unavailable NO FAMILY, PHYSICIAN Primary Care Unavailable Felix Simpson Attending Unavailable Felix Simpson Admitting Unavailable Shaan Corrales Attending Unavailable Shaan Corrales Admitting Unavailable [facility], Services Primary [facility] Aura Brown Attending Unavailable Aura Brown Admitting Unavailable [facility], Services Primary [facility] Anuja Saab Admitting Unavailable Anuja Saab Attending Unavailable Unallocated MD, [place] Provider Primary Care Provi ashley ANUJA SAAB Attending Unavailable ANUJA SAAB Referring Unavailable ROWDY HONEYCUTT Attending Unavailable ROWDY HONEYCUTT Referring Unavailable ROWDY HONEYCUTT Attending Unavailable Unavailable Unavailable Unavailable Allergies Allergy Classification Reported Allergen(s) Allergy Type Date of Onset Reaction(s) Facility (20 sources) Penicillins; Translations: [Penicillins] Allergy to substance 05-23-2016 [facility] (1 source) Penicillin Drug Allergy [facility] Repository Medications Current Medications Medication Drug Class(es) Dates Sig (Normalized) Sig (Original) acetaminophen 325 mg / HYDROcodone bitartrate 5 mg oral tablet (4 sources) Opioid Agonist Start: 03-27-2025 End: 04-01-2025 take 1 tablet by mouth every eight hours as needed for pain HYDROcodone-aceta minophen ([place]) 5-325 MG tablet Indications: Pain Take 1 [...] Discontinued 100 MG PO Twice daily 14 [place] 25th, 2018 12:00am June 16, 2018 8:16pm [...] not open, crush, dissolve , or chew [place] (No Known Home Meds) (7 sources) Start: 07-11-2024 [place] (No Kn own Home Meds) Active July 10, 2024 11:00pm Start: 07-11-2024 [place] (No Kn own Home Meds) Active July 11, 2024 12:00am Prenat.Vits,Jacky,Iei-Lkws-Rmj ic (8 sources) Start: 09-06-2019 take 1 tablet by mouth once daily Prenat.Vits,Jacky,Cbf-Koyx-Xyzwt Active 1 TAB Oral Daily September 06, 2019 11:37pm Start: 09-06-2019 End: 09-22-2020 take 1 tablet by mouth once daily Prenat.Vits,Jacky,Xgr-Djdu-Vjlsv Discontin ued 1 TAB PO Daily September 06, 2019 1:00am September 22, 2020 5:00pm Start: 09-06-2019 End: 09-22-2020 take 1 tablet by mouth once daily Prenat.Vits,Jacky,Kfo-Blnw-Pijsq Discontin ued 1 TAB PO Daily September [...] 22, 2022 11:05pm 168 hr ethinyl estradiol 0.91802 mg/hr / norelgestromin 0.00007 mg/hr transdermal system (2 sources) Progestin, Estrogen [...] 2017 7:16pm administer with food or milk Prenat.Vits,Jacky,Ywm-Xivr-Zsx ic tablet (8 sources) Start: 09-06-2019 End: 09-22-2020 take 1 tablet by mouth once daily Prenat.Vits,Jacky,Zke-Bjha-Cyrxm tablet Discontinued 1 TAB PO Daily September 06, 2019 1:00am September 22, 2020 5:00pm Start: 09-06-2019 End: 09-22-2020 take 1 tablet by mouth once daily Prenat.Vits,Jacky,Dgf-Afvh-Czgpi tablet Discontinued 1 TAB PO Daily September [...] 2024 2:36pm Start: 04-17-2018 End: 04-22-2018 take 1.64065 tablets by mouth every twelve hours Sulfamethoxazole-Trimethoprim (Bactrim D s) 800-160 mg tablet Discontinued 1.69322 TAB PO Q12H 19.688 April 17, 2018 [...] Interpretation Reference Range Facility thyroidon 03-23-2025 thyroid [address] [place] [address] Ultrasound Report Signed Patient: Beatris Mack MR#: [id number] 549 : 2000 Acct:[id number] Age/Sex: 24 / F ADM Date: 03/23/25 Loc: Room: Type: [facility] Attending Dr: Shad Alamo DO Ordering Provider: [...] Bojorquez M.D. 03/23/2025 4:40 PM Dictation Location: [place] [address] Tech: Renetta Beck Transcribed By: RADHA 03/23/25 1640 Dictated By: Shaan Bojorquez DO 03/23/25 1634 Signed By: 03/23/25 1640 Normal [facility] Choriogonadotropin.beta subu nit [Units/volume] in Serum or PlasmaOrdered By: THANH Saab on 03-21-2025 HCG.beta subunit Qn 22.13 m[IU]/mL [facility] Comment on above: Approximate Approxim ate hCG Gestational Age Range (mIU/ml) (weeks)0.2-1 5-50 1-2 50-500 2-3 100-5,000 3-4 500-10,000 4-5 1,000-50,000 5-6 10,000-100,000 6-8 15,000-200,000 8-12 10,000-100,000 HCG,Quantitativeon 5 HCG,Quantitative 22.13 m[iU]/mL Normal [facility] Comment on above: Result Comment: Appr oximate Approximate hCG Gestational Age Range (mIU/ml) (weeks) 0.2-1 5-50 1-2 50-500 2-3 100-5,000 3-4 500-10,000 4-5 1,000-50,000 5-6 10,000-100,000 6-8 15,000-200,000 8-12 10,000-100,000 PERFORMED BY: [place] [address] PATHOLOGIST INTERNAL AFFAIRS INVESTIGATOR CALLI JAFFE M.D. Performed By: #### H CGQNT #### [address] No Panel Informationon 03-21 Radiology Study observation (narrative) [facility] [employer] XR Ankle - right 3 [facility] 0 03-21-2025 Imaging Result: Right distal fibular oblique fracture with slight posterior displacement and slight [facility] [employer] [facility] Foot - right 2 [facility] Imaging Result: Negative fractures identified normal foot morphology [facility] XR ankle RT min 3V*on 2024 XR ankle RT min 3V* [facility] [place] [address] [place] [address] XRay Report Signed Patient: Beatris Mack MR#: [id number] 549 : 2000 Acct:[id number] Age/Sex: 24 / F ADM Date: 03/02/25 Loc: ER Room: Type: [facility] ER Attending Dr: Copies to: Brock [...] Sullivan M.D. 03/02/2025 5:34 PM Dictation Location: [facility]- Transcribed By: RADHA 03/02/25 173 Dictated By: Kevin Sullivan MD 03/02/251732 Signed By: 03/02/251733 Normal [facility] 02-28-2025 [facility] Comment on above: See report. Scanned copy available in EMR. FASTING.[facility] Test Name: DRUG SCREEN 17 W/CONF TEST#[id number] [facility] HEPATITIS B SURFACE ANTIGEN (FR)on 02-24-2025 HBSAG SCREEN Negative Negative [facility] Comment on above: Performed at: [address] [id number] [employer] Reformatory: Shai Marmolejo PhD, Phone: [phone] Hcv antibody rfx to quant pc luis alfredo 02-24-2025 HEPATITIS C VIRUS ANTIBODY Non-Reactive Non Reactive [facility] INTERPRETATION HEPATITIS C Comment . [facility] Comment on above: Not infected with HC V unless early or acute infection is suspected (which may be delayed in an immunocompromised individual), or other evidence exists to indicate HCV infection. No Panel Informationon 02-24 FASTING.[facility] Choriogonadotropin.beta subu nit [Units/volume] in Serum or PlasmaOrdered By: THANH Saab on 02-23-2025 HCG.beta subunit Qn Choriogonadotropin.b et a subunit [Units/volume] in Serum or Plasma [facility] Comment on above: Approximate Approxim ate hCG Gestational Age Range (mIU/ml) (weeks)0.2-1 5-50 1-2 50-500 2-3 100-5,000 3-4 500-10,000 4-5 1,000-50,000 5-6 10,000-100,000 6-8 15,000-200,000 8-12 10,000-100,000 HCG.beta subunit Qn 463.90 m[IU]/mL [facility] Comment on above: Approximate Approxim ate hCG Gestational Age Range (mIU/ml) (weeks)0.2-1 5-50 1-2 50-500 2-3 100-5,000 3-4 500-10,000 4-5 1,000-50,000 5-6 10,000-100,000 6-8 15,000-200,000 8-12 10,000-100,000 HCG,Quantitativeon HCG,Quantitative 463.90 m[iU]/mL Normal [facility] Comment on above: Result Comment: Appr oximate Approximate hCG Gestational Age Range (mIU/ml) (weeks) 0.2-1 5-50 1-2 50-500 2-3 100-5,000 3-4 500-10,000 4-5 1,000-50,000 5-6 10,000-100,000 6-8 15,000-200,000 8-12 10,000-100,000 PERFORMED BY: [place] [address] PATHOLOGIST INTERNAL AFFAIRS INVESTIGATOR CALLI JAFFE M.D. Performed By: #### H CGQNT #### [address] hCG, quantitative, on 02-23-2025 HCG,QUANTITATIVE 463.9 m[iU]/mL [facility] Comment on above: Approximate Approxim ate hCG Gestational Age Range (mIU/ml) (weeks) 0.2-1 5-50 1-2 50-500 2-3 100-5,000 3-4 500-10,000 4-5 1,000-50,000 5-6 10,000-100,000 6-8 15,000-200,000 8-12 10,000-100,000 [facility] Bacteria [Presence] in Urine by AutomatedOrdered By: LEN Saab on 02-22-2025 Bacteria Auto Ql (U) Bacteria [Presence] in Urine by Automated None Seen [facility] Bacteria Auto Ql (U) None seen [HPF] None Seen [facility] Basophils Auto (Bld) [#/Vol] Ordered By: LEN Saab on 02-22-2025 Basophils (Bld) [#/Vol] Automated basoph il count 0.0-0.2 [facility] Basophils [#/volume] in Bloo d by Automated countOrdered By: LEN Saab on 02-22-2025 Basophils (Bld) [#/Vol] 0.0 10*3/uL Normal 0.0-0.2 [facility] Comment on above: Order Comment: JUANITA COLÓNKW Result Comment: PERF ORMED BY: [facility] [address] [address] PATHOLOGIST INTERNAL AFFAIRS INVESTIGATOR CALLI JAFFE M.D. Performed By: #### C UU, CBC, [facility], ADDONUAPLUS ####[facility] [id number]#### RPR W RFX, RUBEOLA IGG, HIV SCREEN, HCV RX PCR, HBSAG ####[facility] , Basophils/100 WBC Auto (Bld) Ordered By: LEN Saab on 02-22-2025 Basophils/100 WBC (Bld) Automated basophil % . [facility] Basophils/100 leukocytes in Blood by Automated countOrdered By: LEN Saab on 02-22-2025 Basophils/100 WBC (Bld) 0.8 % Normal . [facility] Comment on above: Order Comment: JUANITA PATRICK.JKW Performed By: #### C UU, CBC, [facility], ADD[facility]AP[facility] ####[facility] [id number] [place] [address] [place]#### RPR W RFX, RUBEOLA IGG, HIV SCREEN, HCV RX PCR, HBSAG ####[facility] , Bilirubin Test strip Ql (U)O rdered By: LEN Saab on 02-22-2025 Bilirubin Ql (U) Bilirubin.total [Presence] in Urine by Test strip Negative [facility] Bilirubin Ql (U) Negative Negative [facility] CBC W Auto Differential pane l (Bld)on 02-22-2025 Basophils (Bld) [#/Vol] 0 10*3/uL 0.0 - 0.2 10*3/uL [facility] Basophils/100 WBC Manual cnt (Syn fld) 0.8 % . [facility] Eosinophils (Bld) [#/Vol] 0 10*3/uL 0.0 - 0.45 10*3/uL [facility] Eosinophils/100 WBC Manual cnt (Syn fld) 0.4 % . [facility] Erythrocyte distribution width (RBC) [Ratio] 15.2 % 11.9 - 15.3 % [facility] Hematocrit (Bld) [Volume fraction] 35.9 % 34.0 - 46.4 % [facility] Hemoglobin (Bld) [Mass/Vol] 11.9 g/dL 11.8 - 15.4 g/dL [facility] Lymphocytes (Bld) [#/Vol] 2.2 10*3/uL 1.00 - 4.8 10*3/uL [facility] Lymphocytes/100 WBC Manual cnt (Syn fld) 34.9 % . [facility] MCH (RBC) [Entitic mass] 29.3 pg 24. 7 - 34.3 pg [facility] MCHC (RBC) [Mass/Vol] 33.1 g/dL 32.0 - 35.0 g/dL [facility] MCV (RBC) [Entitic vol] 88.5 fL 80 - 100 fL [facility] Monocytes (Bld) [#/Vol] 0.6 10*3/uL 0.0 - 0.8 10*3/uL [facility] Monocytes+Macrophages/10 0 WBC Manual cnt (Syn fld) 8.8 % . [facility] Neutrophils (Bld) [#/Vol] 3.5 10*3/uL 1.8 - 7.7 10*3/uL [facility] Neutrophils/100 WBC Manual cnt (Syn fld) 55.1 % . [facility] NRBC 0.1 /100{WBC} 0 - 0.5 /100{WBC} [facility] Platelet mean volume (Bld) [Entitic vol] 9.1 fL 6.3 - 10.7 fL [facility] Platelets (Bld) [#/Vol] 308 10*3/uL 150 - 450 10*3/uL [facility] RBC LM.HPF (Urine sed) [#/Area] 4.06 10*6/uL 3.60 - 5.00 10*6/uL [facility] WBC (Bld) [#/Vol] 6.4 10*3/uL 3.8 - 11.6 10*3/uL [facility] WBC LM.HPF (Urine sed) [#/Area] 6.4 10*3/uL 3.8 - 11.6 10*3/uL [facility] FASTING.JKW [facility] Complete Blood Count Auto Di ffon 02-22-2025 Mean Corpuscular HGB Conc 33.1 g/dL Normal 32.0-35.0 [facility] Comment on above: Order Comment: FASTI NG.JKW Performed By: #### C UU, CBC, MISC LAB, ADDONUAPLUS ####[place] [id number] [address]#### RPR W RFX, RUBEOLA IGG, HIV SCREEN, HCV RX PCR, HBSAG ####[facility] , NRBC% 0.1 /100{WBC} Normal 0-0.5 [facility] Comment on above: Order Comment: FASTI NG.JKW Performed By: #### C UU, CBC, [facility] LAB, ADDONUAPLUS ####[place] [id number] [address]#### RPR W RFX, RUBEOLA IGG, HIV SCREEN, HCV RX PCR, HBSAG ####[facility] , Dipstick and Microscopicon 0 02-22-2025 Bacteria,Urine None Seen Normal None Seen [facility] Comment on above: Order Comment: FASTI NG.JKW Name Collection Type:: Clean-Voided Midstream Performed By: #### C UU, CBC, [facility], ADDONUAPLUS ####[place] [address] [place] [address] [place]#### RPR W RFX, RUBEOLA IGG, HIV SCREEN, HCV RX PCR, HBSAG ####[facility] , Bilirubin,Urine Negative Normal Negative [facility] Comment on above: Order Comment: FASTI NG.JKW Name Collection Type:: Clean-Voided Midstream Performed By: #### C UU, CBC, [facility] LAB, ADDONUAPLUS ####[address]#### RPR W RFX, RUBEOLA IGG, HIV SCREEN, HCV RX PCR, HBSAG ####[facility] , Glucose Ql (U) Normal Normal Normal [facility] Comment on above: Order Comment: JUANITA PATRICK.AleciaKW Name Collection Type:: Clean-Voided Midstream Performed By: #### C UU, CBC, [facility] LAB, ADDONUAPLUS ####[address]#### RPR W RFX, RUBEOLA IGG, HIV SCREEN, HCV RX PCR, HBSAG ####[facility] , Hyaline Casts,Urine None Normal 0-8 [facility] Comment on above: Order Comment: JUANITA PATRICK.AleciaKW Name Collection Type:: Clean-Voided Midstream Performed By: #### C UU, CBC, [facility] LAB, ADDONUAPLUS ####[address]#### RPR W RFX, RUBEOLA IGG, HIV SCREEN, HCV RX PCR, HBSAG ####[facility] , Ketones Ql (U) 2+ High Negative [facility] Comment on above: Order Comment: FASTSarita PATRICK.JKW Name Collection Type:: Clean-Voided Midstream Performed By: #### C UU, CBC, [facility] LAB, ADDONUAPLUS ####[address]#### RPR W RFX, RUBEOLA IGG, HIV SCREEN, HCV RX PCR, HBSAG ####[facility] , Mucus,Urine 2+ Critically abnormal [facility] Comment on above: Order Comment: FASTSarita PATRICK.AleciaKW Name Collection Type:: Clean-Voided Midstream Result Comment: PERF ORMED BY: [facility] [address] [place] [address] PATHOLOGIST INTERNAL AFFAIRS INVESTIGATOR CALLI JAFFE M.D. Performed By: #### C UU, CBC, [facility], ADDONUAPLUS ####[address]#### RPR W RFX, RUBEOLA IGG, HIV SCREEN, HCV RX PCR, HBSAG ####[facility] , Nitrite,Urine Negative Normal Negative [facility] Comment on above: Order Comment: JUANITA COLÓNKW Name Collection Type:: Clean-Voided Midstream Performed By: #### C UU, CBC, [facility] LAB, ADDONUAPLUS ####[address]#### RPR W RFX, RUBEOLA IGG, HIV SCREEN, HCV RX PCR, HBSAG ####[facility] , Occult Blood,Urine 2+ High Negative [facility] Comment on above: Order Comment: JUANITA MCCARTYW Name Collection Type:: Clean-Voided Midstream Performed By: #### C UU, CBC, [facility], ADDONUAPLUS ####[address]#### RPR W RFX, RUBEOLA IGG, HIV SCREEN, HCV RX PCR, HBSAG ####[facility] , RBC,Urine 1-2 Normal 0-4 [facility] Comment on above: Order Comment: JUANITA MCCARTYW Name Collection Type:: Clean-Voided Midstream Performed By: #### C UU, CBC, [facility] LAB, ADDONUAPLUS ####[address]#### RPR W RFX, RUBEOLA IGG, HIV SCREEN, HCV RX PCR, HBSAG ####[facility] , Specificy [place],Urine >1.030 High 1.001-1.030 [facility] Comment on above: Order Comment: JUANITA MCCARTYW Name Collection Type:: Clean-Voided Midstream Performed By: #### C UU, CBC, [facility] LAB, ADDONUAPLUS ####[address]#### RPR W RFX, RUBEOLA IGG, HIV SCREEN, HCV RX PCR, HBSAG ####[facility] , Squamous Epithelial Cell,Urine 5-9 High 0-2 [facility] Comment on above: Order Comment: JUANITA MCCARTYW Name Collection Type:: Clean-Voided Midstream Performed By: #### C UU, CBC, MISC LAB, ADDONUAPLUS ####[address]#### RPR W RFX, RUBEOLA IGG, HIV SCREEN, HCV RX PCR, HBSAG ####[facility] , Urobilinogen,Urine Normal Normal Normal [facility] Comment on above: Order Comment: JUANITA MCCARTYW Name Collection Type:: Clean-Voided Midstream Performed By: #### C UU, CBC, [facility] LAB, ADDONUAPLUS ####[address]#### RPR W RFX, RUBEOLA IGG, HIV SCREEN, HCV RX PCR, HBSAG ####[facility] , WBC,Urine 5-9 High 0-4 [facility] Comment on above: Order Comment: JUANITA PATRICK.JYaredW Name Collection Type:: Clean-Voided Midstream Performed By: #### C UU, CBC, [facility], ADDONUAPLUS ####[address]#### RPR W RFX, RUBEOLA IGG, HIV SCREEN, HCV RX PCR, HBSAG ####[facility] , Eosinophils Auto (Bld) [#/Vo l]Ordered By: LEN Saab on 02-22-2025 Eosinophils (Bld) [#/Vol] Automated eosinophil count 0.0-0.45 [facility] Eosinophils [#/volume] in Bl ood by Automated countOrdered By: LEN Saab on 02-22-2025 Eosinophils (Bld) [#/Vol] 0.0 10*3/uL Normal 0.0-0.45 [facility] Comment on above: Order Comment: FASTSarita NG.JKW Performed By: #### C UU, CBC, [facility] LAB, ADDONUAPLUS ####[facility] [id number] [place] [address] [place]#### RPR W RFX, RUBEOLA IGG, HIV SCREEN, HCV RX PCR, HBSAG ####[facility] , Eosinophils/100 WBC Auto (Bl d)Ordered By: LEN Saab on 02-22-2025 Eosinophils/100 WBC (Bld) Automated eosinophil % . [facility] Eosinophils/100 leukocytes i n Blood by Automated countOrdered By: LEN Saab on 02-22-2025 Eosinophils/100 WBC (Bld) 0.4 % Normal . [facility] Comment on above: Order Comment: FASTSarita PATRICK.JKW Performed By: #### C UU, CBC, MISC LAB, ADDONUAPLUS ####[facility] [id number] [place] [address] [place]#### RPR W RFX, RUBEOLA IGG, HIV SCREEN, HCV RX PCR, HBSAG ####[facility] , Epithelial cells.squamous [# /area] in Urine sediment by Automated countOrdered By: LEN Saab on 02-22-2025 Epithelial cells.squamous Auto (Urine sed) [#/Area] Epithelial cells.squamous [#/area] in Urine sediment by Automated count High 0-2 [facility] Epithelial cells.squamous Auto (Urine sed) [#/Area] 5-9 [HPF] High 0-2 [facility] Erythrocyte distribution wid th Auto (RBC) [Ratio]Ordered By: LEN Saab on 02-22-2025 Erythrocyte distribution width (RBC) [Ratio] Erythrocyte distribution width [Ratio] by Automated count 11.9-15.3 [facility] Erythrocyte distribution wid th [Ratio] by Automated countOrdered By: LEN Saab on 02-22-2025 Erythrocyte distribution width (RBC) [Ratio] 15.2 % Normal 11.9-15.3 [facility] Comment on above: Order Comment: JUANITA BOLTONJKW Performed By: #### C UU, CBC, [facility], ADDONUAPLUS ####[facility] [place] [id number] [facility]#### RPR W RFX, RUBEOLA IGG, HIV SCREEN, HCV RX PCR, HBSAG ####[facility] , Erythrocytes [#/area] in Uri ne sediment by Automated countOrdered By: LEN Saab on 02-22-2025 RBC Auto (Urine sed) [#/Area] Erythrocytes [#/area] in Urine sediment by Automated count 0-4 [facility] RBC Auto (Urine sed) [#/Area] 1-2 [HPF] 0-4 [facility] Erythrocytes [#/volume] in B lood by Automated countOrdered By: LEN Saab on 02-22-2025 RBC (Bld) [#/Vol] 4.06 10*6/uL Normal 3.60-5.00 [facility] Comment on above: Order Comment: JUANITA COLÓNKW Performed By: #### C UU, CBC, [facility], ADDONUAPLUS ####[facility]#### RPR W RFX, RUBEOLA IGG, HIV SCREEN, HCV RX PCR, HBSAG ####[facility] , Glucose [Mass/volume] in Uri ne by Test stripOrdered By: LEN Saab on 02-22-2025 Glucose Test strip (U) [Mass/Vol] Glucose [Mass/volume] in Urine by Test strip Normal [facility] Glucose Test strip (U) [Mass/Vol] Normal mg/dL Normal [facility] HIV 1/O/2 Antigen/Antibodyon 02-22-2025 HIV Screen 4th Generation Non-Reactive Normal Non Reactive [facility] Comment on above: Order Comment: FASTI NG.JKW Result Comment: HIV- 1/HIV-2 antibodies and HIV-1 p24 antigen were NOT detected. There is no laboratory evidence of HIV infection. HIV Negative Performed at: [address] [id number] [employer]: Shai Marmolejo PhD, Phone: [phone] Performed By: #### C UU, CBC, [facility], ADDONUAPLUS ####[place] [id number] [address]#### RPR W RFX, RUBEOLA IGG, HIV SCREEN, HCV RX PCR, HBSAG ####[facility] , HIV antibody and antigen jo elOrdered By: LEN Saab on 02-22-2025 HIV 1+2 Ab+HIV1 p24 Ag IA Ql HIV 1 and HIV-2 antibody assay with HIV-1 p24 antigen detection Non Reactive [facility] Comment on above: HIV-1/HIV-2 antibodi es and HIV-1 p24 antigen were NOTdetected. There is no laboratory evidence of HIV infection.HIV NegativePerformed at: [address] [id number] Director: Shai Marmolejo PhD, Phone: [phone] Hematocrit Auto (Bld) [Volum e fraction]Ordered By: LEN Saab on 02-22-2025 Hematocrit (Bld) [Volume fraction] Hematocrit [Volume Fraction] of Blood by Automated count 34.0-46.4 [facility] Hematocrit [Volume Fraction] of Blood by Automated countOrdered By: LEN Saab on 02-22-2025 Hematocrit (Bld) [Volume fraction] 35.9 % Normal 34.0-46.4 [facility] Comment on above: Order Comment: JUANITA DEGROOT Performed By: #### C UU, CBC, [facility], ADDONUAPLUS ####[place] [id number] [address]#### RPR W RFX, RUBEOLA IGG, HIV SCREEN, HCV RX PCR, HBSAG ####[facility] , Hemoglobin Test strip Ql (U) Ordered By: LEN Saab on 02-22-2025 Hemoglobin Ql (U) Hemoglobin [Presence ] in Urine by Test strip High Negative [facility] Hemoglobin Ql (U) 2+ High Negative [facility] Hemoglobin [Mass/volume] in BloodOrdered By: LEN Saab on 02-22-2025 Hemoglobin (Bld) [Mass/Vol] Hemoglobin [Mass/volume] in Blood 11.8-15.4 [facility] Hemoglobin (Bld) [Mass/Vol] 11.9 g/dL Normal 11.8-15.4 [facility] Comment on above: Order Comment: FASTI NG.JKW Performed By: #### C UU, CBC, [facility] LAB, ADDONUAPLUS ####[place] [id number] [address]#### RPR W RFX, RUBEOLA IGG, HIV SCREEN, HCV RX PCR, HBSAG ####[facility] , Hep C Ab wRfx to Qnt PCRon 0 02-22-2025 Hepatitis C Virus Antibody Non-Reactive Normal Non Reactive [facility] Comment on above: Order Comment: FASTI [email or web address].JKW Performed By: #### C UU, CBC, MISC LAB, ADDONUAPLUS ####[address]#### RPR W RFX, RUBEOLA IGG, HIV SCREEN, HCV RX PCR, HBSAG ####[facility] , Interpretation Hepatitis C Comment Normal . [facility] Comment on above: Order Comment: FASTI [email or web address] Result Comment: Not infected with HCV unless early or acute infection is suspected (which may be delayed in an immunocompromised individual), or other evidence exists to indicate HCV infection. Performed By: #### C UU, CBC, MISC LAB, ADDONUAPLUS ####[facility] [place] [address] [place]#### RPR W RFX, RUBEOLA IGG, HIV SCREEN, HCV RX PCR, HBSAG ####[facility] , Hepatitis B Surface Antigeno n 02-22-2025 HBsAg Screen Negative Normal Negative [facility] Comment on above: Order Comment: JUANITA DEGROOT Result Comment: Perf ormed at: - [facility] [address] [id number] Correction Officer Reformatory: Shai Marmolejo PhD, Phone: [phone] PERFORMED BY: [facility] [address] [place] [address] PATHOLOGIST INTERNAL AFFAIRS INVESTIGATOR CALLI JAFFE M.D. Performed By: #### C UU, CBC, MISC LAB, ADDONUAPLUS ####[facility] [id number] [address]#### RPR W RFX, RUBEOLA IGG, HIV SCREEN, HCV RX PCR, HBSAG ####[facility] , Hepatitis C virus IgG Ab [Pr esence] in Serum or Plasma by ImmunoassayOrdered By: LEN Saab on 02-22-2025 HCV IgG IA Ql Hepatitis C virus Ig G Ab [Presence] in Serum or Plasma by Immunoassay Non Reactive [facility] HCV IgG IA Ql Non-Reactive Non Reactive [facility] Hyaline casts [#/area] in Ur ine sediment by Automated countOrdered By: LEN Saab on 02-22-2025 Hyaline casts Auto (Urine sed) [#/Area] Hyaline casts [#/area] in Urine sediment by Automated count 0-8 [facility] Hyaline casts Auto (Urine sed) [#/Area] None [LPF] 0-8 [facility] Ketones Test strip (U) [Mass /Vol]Ordered By: LEN Saab on 02-22-2025 Ketones (U) [Mass/Vol] Urine ketones measurement by test strip (mass/volume) High Negative [facility] Ketones (U) [Mass/Vol] 2+ High Negative [facility] Leukocyte esterase [Presence ] in Urine by Test stripOrdered By: LEN Saab on 02-22-2025 Leukocyte esterase Test strip Ql (U) Leukocyte esterase [Presence] in Urine by Test strip High Negative [facility] Leukocyte esterase Test strip Ql (U) 1+ High Negative [facility] Comment on above: Order Comment: JUANITA DEGROOT Name Collection Type:: Clean-Voided Midstream Performed By: #### C UU, CBC, MISC LAB, ADDONUAPLUS ####[facility] [id number] [address]#### RPR W RFX, RUBEOLA IGG, HIV SCREEN, HCV RX PCR, HBSAG ####[facility] , Leukocytes [#/area] in Urine sediment by Automated countOrdered By: LEN Saab on 02-22-2025 WBC Auto (Urine sed) [#/Area] Leukocytes [#/area] in Urine sediment by Automated count High 0-4 [facility] WBC Auto (Urine sed) [#/Area] 5-9 [HPF] High 0-4 [facility] Leukocytes [#/volume] correc lashon for nucleated erythrocytes in Blood by Automated counOrdered By: LEN Saab on 02-22-2025 WBC corrected for nucl RBC Auto (Bld) [#/Vol] Leukocytes [#/volume] corrected for nucleated erythrocytes in Blood by Automated coun 3.8-11.6 [facility] WBC corrected for nucl RBC Auto (Bld) [#/Vol] 6.4 10*3/uL 3.8-11.6 [facility] Leukocytes [#/volume] in Blo od by Automated countOrdered By: LEN Saab on 02-22-2025 WBC (Bld) [#/Vol] 6.4 10*3/uL Normal 3.8-11.[address] [facility] Comment on above: Order Comment: JUANITA MCCARTYW Performed By: #### C UU, CBC, MISC LAB, ADDONUAPLUS ####[facility] [id number] [address]#### RPR W RFX, RUBEOLA IGG, HIV SCREEN, HCV RX PCR, HBSAG ####[facility] , Lymphocytes Auto (Bld) [#/Vo l]Ordered By: LEN Saab on 02-22-2025 Lymphocytes (Bld) [#/Vol] Lymphocytes [#/volume] in Blood by Automated count 1.00-4.8 [facility] Lymphocytes [#/volume] in Bl ood by Automated countOrdered By: LEN Saab on 02-22-2025 Lymphocytes (Bld) [#/Vol] 2.2 10*3/uL Normal 1.00-4.8 [facility] Comment on above: Order Comment: FASTSarita [email or web address].JKW Performed By: #### C UU, CBC, MISC LAB, ADDONUAPLUS ####[facility] [id number] [place] [address] [place]#### RPR W RFX, RUBEOLA IGG, HIV SCREEN, HCV RX PCR, HBSAG ####[facility] , Lymphocytes/100 WBC Auto (Bl d)Ordered By: LEN Saab on 02-22-2025 Lymphocytes/100 WBC (Bld) Lymphocytes/100 leukocytes in Blood by Automated count . [facility] Lymphocytes/100 leukocytes i n Blood by Automated countOrdered By: LEN Saab on 02-22-2025 Lymphocytes/100 WBC (Bld) 34.9 % Normal . [facility] Comment on above: Order Comment: FASTSarita [email or web address].JKW Performed By: #### C UU, CBC, MISC LAB, ADDONUAPLUS ####[facility] [id number] [place] [address] [place]#### RPR W RFX, RUBEOLA IGG, HIV SCREEN, HCV RX PCR, HBSAG ####[facility] , MCH Auto (RBC) [Entitic mass ]Ordered By: LEN Saab on 02-22-2025 MCH (RBC) [Entitic mass] MCH [Entitic ma ss] by Automated count 24.7-34.3 [facility] MCH [Entitic mass] by Automa lashon countOrdered By: LEN Saab on 02-22-2025 MCH (RBC) [Entitic mass] 29.3 pg Normal 24.7-34.3 [facility] Comment on above: Order Comment: FASTSarita [email or web address].JKW Performed By: #### C UU, CBC, MISC LAB, ADDONUAPLUS ####[place] [id number] [address]#### RPR W RFX, RUBEOLA IGG, HIV SCREEN, HCV RX PCR, HBSAG ####[facility] , MCHC Auto (RBC) [Mass/Vol]Or dered By: LEN Saab on 02-22-2025 MCHC (RBC) [Mass/Vol] MCHC [Mass/volume] by Automated count 32.0-35.0 [facility] MCHC (RBC) [Mass/Vol] 33.1 g/dL 32.0-35.[address] [facility] MCV Auto (RBC) [Entitic vol] Ordered By: LEN Saab on 02-22-2025 MCV (RBC) [Entitic vol] MCV [Entitic vol ume] by Automated count 80-100 [facility] MCV [Entitic volume] by Auto mated countOrdered By: LEN Saab on 02-22-2025 MCV (RBC) [Entitic vol] 88.5 fL Normal 80-100 [facility] Comment on above: Order Comment: FASTSarita [email or web address].JKW Performed By: #### C UU, CBC, MISC LAB, ADDONUAPLUS ####[place] [id number] [address]#### RPR W RFX, RUBEOLA IGG, HIV SCREEN, HCV RX PCR, HBSAG ####[facility] , MISC LABon 02-22-2025 MISC LAB Normal [facility] Comment on above: Order Comment: JUANITA BOLTONJKW [facility] Test Name: DRUG SCREEN 17 W/CONF TEST#[id number] Result Comment: See report. Scanned copy available in EMR. PERFORMED BY: [facility] [address] [place] [address] PATHOLOGIST INTERNAL AFFAIRS INVESTIGATOR CALLI JAFFE M.D. Performed By: #### C UU, CBC, MISC LAB, ADDONUAPLUS ####[place] [id number] [address]#### RPR W RFX, RUBEOLA IGG, HIV SCREEN, HCV RX PCR, HBSAG ####[facility] , Monocytes Auto (Bld) [#/Vol] Ordered By: LEN Saab on 02-22-2025 Monocytes (Bld) [#/Vol] Automated blood monocyte count 0.0-0.8 [facility] Monocytes [#/volume] in Bloo d by Automated countOrdered By: LEN Saab on 02-22-2025 Monocytes (Bld) [#/Vol] 0.6 10*3/uL Normal 0.0-0.8 [facility] Comment on above: Order Comment: FASTI [email or web address] Performed By: #### C UU, CBC, [facility], ADDONUAPLUS ####[place] [address] [place]#### RPR W RFX, RUBEOLA IGG, HIV SCREEN, HCV RX PCR, HBSAG ####[facility] , Monocytes/100 WBC Auto (Bld) Ordered By: LEN Saab on 02-22-2025 Monocytes/100 WBC (Bld) Automated monocyte % . [facility] Monocytes/100 leukocytes in Blood by Automated countOrdered By: LEN Saab on 02-22-2025 Monocytes/100 WBC (Bld) 8.8 % Normal . [facility] Comment on above: Order Comment: FASTI [email or web address] Performed By: #### C UU, CBC, MISC LAB, ADDONUAPLUS ####[place] [address] [place]#### RPR W RFX, RUBEOLA IGG, HIV SCREEN, HCV RX PCR, HBSAG ####[facility] , Mucus [Presence] in Urine by AutomatedOrdered By: LEN Saab on 02-22-2025 Mucus Auto Ql (U) Mucus [Presence] in Urine by Automated Abnormal [facility] Mucus Auto Ql (U) 2+ [LPF] Abnormal [facility] Neutrophils Auto (Bld) [#/Vo l]Ordered By: LEN Saab on 02-22-2025 Neutrophils (Bld) [#/Vol] Neutrophils [#/volume] in Blood by Automated count 1.8-7.7 [facility] Neutrophils [#/volume] in Bl ood by Automated countOrdered By: LEN Saab on 02-22-2025 Neutrophils (Bld) [#/Vol] 3.5 10*3/uL Normal 1.8-7.7 [facility] Comment on above: Order Comment: JUANITA COLÓNKW Performed By: #### C UU, CBC, [facility], ADDONUAPLUS ####[facility] [id number] [place] [address] [place]#### RPR W RFX, RUBEOLA IGG, HIV SCREEN, HCV RX PCR, HBSAG ####[facility] , Neutrophils/100 WBC Auto (Bl d)Ordered By: LEN Saab on 02-22-2025 Neutrophils/100 WBC (Bld) Automated neutrophil % . [facility] Neutrophils/100 leukocytes i n Blood by Automated countOrdered By: LEN Saab on 02-22-2025 Neutrophils/100 WBC (Bld) 55.1 % Normal . [facility] Comment on above: Order Comment: JUANITA COLÓNKW Performed By: #### C UU, CBC, MISC LAB, ADDONUAPLUS ####[facility] [address] [place] [address] [place]#### RPR W RFX, RUBEOLA IGG, HIV SCREEN, HCV RX PCR, HBSAG ####[facility] , Nitrite Test strip Ql (U)Ord ered By: LEN Saab on 02-22-2025 Nitrite Ql (U) Nitrite [Presence] i n Urine by Test strip Negative [facility] Nitrite Ql (U) Negative Negative [facility] No Panel InformationOrdered By: LEN Saab on 02-22-2025 Hepatitis C Interpretation Comment . [facility] Comment on above: Not infected with HC V unless early or acute infection issuspected (which may be delayed in an immunocompromisedindividual), or other evidence exists to indicate HCVinfection. Miscellaneous Test See comment [facility] Comment on above: See report. Scanned copy available in EMR. Nucleated erythrocytes [Pres ence] in Blood by Automated countOrdered By: LEN Saab on 02-22-2025 Nucleated RBC Auto Ql (Bld) Nucleated erythrocytes [Presence] in Blood by Automated count 0-0.5 [facility] Nucleated RBC Auto Ql (Bld) 0.1 /100{WBC} 0-0.5 [facility] Platelet mean volume Auto (B ld) [Entitic vol]Ordered By: LEN Saab on 02-22-2025 Platelet mean volume (Bld) [Entitic vol] Platelet mean volume [Entitic volume] in Blood by Automated count 6.3-10.7 [facility] Platelet mean volume [Entiti c volume] in Blood by Automated countOrdered By: THANH Saab on 02-22-2025 Platelet mean volume (Bld) [Entitic vol] 9.1 fL Normal 6.3-10.7 [facility] Comment on above: Order Comment: JUANITA COLÓNKW Performed By: #### C UU, CBC, MISC LAB, ADDONUAPLUS ####[facility] [id number] [address]#### RPR W RFX, RUBEOLA IGG, HIV SCREEN, HCV RX PCR, HBSAG ####[facility] , Platelets Auto (Bld) [#/Vol] Ordered By: LEN Saab on 02-22-2025 Platelets (Bld) [#/Vol] Platelets [#/vol ume] in Blood by Automated count 150-450 [facility] Platelets [#/volume] in Bloo d by Automated countOrdered By: LEN Saab on 02-22-2025 Platelets (Bld) [#/Vol] 308 10*3/uL Normal 150-450 [facility] Comment on above: Order Comment: JUANITA [email or web address] Performed By: #### C UU, CBC, MISC LAB, ADDONUAPLUS ####[place] [id number] [address]#### RPR W RFX, RUBEOLA IGG, HIV SCREEN, HCV RX PCR, HBSAG ####[facility] , Protein Test strip (U) [Mass /Vol]Ordered By: LEN Saab on 02-22-2025 Protein (U) [Mass/Vol] Protein [Mass/vol ume] in Urine by Test strip High Negative [facility] Protein [Mass/volume] in Uri ne by Test stripOrdered By: LEN Saab on 02-22-2025 Protein (U) [Mass/Vol] 10 mg/dL High Negative [facility] Comment on above: Order Comment: JUANITA COLÓNKW Name Collection Type:: Clean-Voided Midstream Performed By: #### C UU, CBC, MISC LAB, ADDONUAPLUS ####[place] [id number] [address]#### RPR W RFX, RUBEOLA IGG, HIV SCREEN, HCV RX PCR, HBSAG ####[facility] , RBC Auto (Bld) [#/Vol]Ordere d By: LEN Saab on 02-22-2025 RBC (Bld) [#/Vol] Erythrocytes [#/volume] in Blood by Automated count 3.60-5.00 [facility] RPR w/rfx to Quant TP Abson 02-22-2025 RPR, Rfx Quant RPR Non-Reactive Normal Non Reactive [facility] Comment on above: Order Comment: JUANITA BOLTONJKW Result Comment: PERF ORMED BY: [facility] [address] [place] [address] PATHOLOGIST INTERNAL AFFAIRS INVESTIGATOR CALLI JAFFE M.D. Performed By: #### C UU, CBC, MISC LAB, ADDONUAPLUS ####[place] [id number] [address]#### RPR W RFX, RUBEOLA IGG, HIV SCREEN, HCV RX PCR, HBSAG ####[facility] , Rubeola (Measles) Abs, IgGon 02-22-2025 Rubeola (Measles) Abs, IgG 201.0 Normal Immune >16.4 [facility] Comment on above: Order Comment: JUANITA MCCARTYW Result Comment: Nega tive <13.5 Equivocal 13.5 - 16.4 Positive >16.4 Presence of antibodies to Rubeola is presumptive evidence of immunity except when acute infection is suspected. Performed at: [employer] [id number] Correction Officer Reformatory: Shai Marmolejo PhD, Phone: [phone] Performed By: #### C UU, CBC, MISC LAB, ADDONUAPLUS ####[facility]#### RPR W RFX, RUBEOLA IGG, HIV SCREEN, HCV RX PCR, HBSAG ####[facility] , Serum RPR testOrdered By: MD MARTINA Saab on 02-22-2025 Reagin Ab RPR Ql (S) Reagin Ab [Presence ] in Serum by RPR Non Reactive [facility] Reagin Ab RPR Ql (S) Non-Reactive Non Reactive [facility] Serum measles virus IgG anti body assay by immunoassay (units/volume)Ordered By: LEN Saab on 02-22-2025 MeV IgG IA Qn (S) Measles virus IgG Ab [Units/volume] in Serum by Immunoassay Immune >16.4 [facility] Comment on above: Negative <13.5 Equiv ocal 13.5 - 16.4 Positive >16.4Presence of antibodies to Rubeola is presumptive evidenceof immunity except when acute infection is suspected.Performed at: [facility] [id number] Director: Shai Marmolejo PhD, Phone: [phone] MeV IgG IA Qn (S) 201.0 AU/mL Immune >16.4 [facility] Comment on above: Negative <13.5 Equiv ocal 13.5 - 16.4 Positive >16.4Presence of antibodies to Rubeola is presumptive evidenceof immunity except when acute infection is suspected.Performed at: [employer] [facility] [address] [id number] Director: Shai Marmolejo PhD, Phone: [phone] Serum or plasma hepatitis B virus surface antigen detection by immunoassayOrdered By: LEN Saab on 02-22-2025 HBV surface Ag IA Ql Hepatitis B virus surface Ag [Presence] in Serum or Plasma by Immunoassay Negative [facility] Comment on above: Performed at: [employer] [address] [id number] Director: Shai Marmolejo PhD, Phone: [phone] HBV surface Ag IA Ql Negative Negative [facility] Comment on above: Performed at: [employer] [address] [id number] Director: Shai Marmolejo PhD, Phone: [phone] Specific gravity of Urine by RefractometryOrdered By: LEN Saab on 02-22-2025 Specific gravity Refractometry (U) [Rel density] Specific gravity of Urine by Refractometry High 1.001-1.030 [facility] Specific gravity Refractometry (U) [Rel density] >1.030 High 1.001-1.030 [facility] Type and Screenon 02-22-2025 ABO and Rh group Nom (Bld) Blood group O Rh(D) positive Normal [facility] Comment on above: Order Comment: FASTI [email or web address].JKW Urine Cultureon 02-22-2025 Bacteria identified Cx Nom (U) FASTING.JKW ORGANISM: Strep agalactiae - (group b) (O:STRAGA) [place] Count 30,000 PERFORMED BY: [facility] [address] [place] [place] [address] PATHOLOGIST INTERNAL AFFAIRS INVESTIGATOR CALLI JAFFE M.D. Normal [facility] Comment on above: Performed By: #### C UU, CBC, MISC LAB, ADDONUAPLUS ####[place] [address] [place] [address] [place]#### RPR W RFX, RUBEOLA IGG, HIV SCREEN, HCV RX PCR, HBSAG ####[facility] , Urine appearance determinati onOrdered By: LEN Saab on 02-22-2025 Appearance (U) Urine appearance Clear [facility] Appearance (U) Clear Normal Clear [facility] Comment on above: Order Comment: JUANITA BOLTONJYaredW Name Collection Type:: Clean-Voided Midstream Performed By: #### C UU, CBC, MISC LAB, ADDONUAPLUS ####[address]#### RPR W RFX, RUBEOLA IGG, HIV SCREEN, HCV RX PCR, HBSAG ####[facility] , Urine color determinationOrd ered By: LEN Saab on 02-22-2025 Color (U) Urine color Yellow [facility] Color (U) Yellow Normal Yellow [facility] Comment on above: Order Comment: JUANITA [email or web address].JKW Name Collection Type:: Clean-Voided Midstream Performed By: #### C UU, CBC, MISC LAB, ADDONUAPLUS ####[address]#### RPR W RFX, RUBEOLA IGG, HIV SCREEN, HCV RX PCR, HBSAG ####[facility] , Urine cultureOrdered By: THANH Saab on 02-22-2025 Bacteria identified Cx Nom (U) Group B Strep (Streptococcus agalactiae) Abnormal [facility] Bacteria identified Cx Nom (U) Strep agalactiae - (group b) Abnormal [facility] Urobilinogen Test strip (U) [Mass/Vol]Ordered By: LEN Saab on 02-22-2025 Urobilinogen (U) [Mass/Vol] Urobilinogen [Mass/volume] in Urine by Test strip Normal [facility] Urobilinogen (U) [Mass/Vol] Normal mg/dL Normal [facility] WBC Auto (Bld) [#/Vol]Ordere d By: LEN Saab on 02-22-2025 WBC (Bld) [#/Vol] Leukocytes [#/volume ] in Blood by Automated count 3.8-11.6 [facility] pH Test strip (U)Ordered By: LEN Saab on 02-22-2025 pH (U) pH of Urine by Test strip 5.0-9.0 [facility] pH of Urine by Test stripOrd ered By: LEN Saab on 02-22-2025 pH (U) 5.5 [pH] Normal 5.0-9.0 [facility] Comment on above: Order Comment: JUANITA DEGROOT Name Collection Type:: Clean-Voided Midstream Performed By: #### C UU, CBC, MISC LAB, ADDONUAPLUS ####[facility] Die[address]#### RPR W RFX, RUBEOLA IGG, HIV SCREEN, HCV RX PCR, HBSAG ####[facility] , Thyroid Stimulating Immunogl obon 02-15-2025 Thyroid Stimulating Immunoglob <0.10 Normal 0.00-0.55 [facility] Comment on above: Order Comment: Reaso n for Exam Decreased thyroid stimulating hormone (TSH) level Result Comment: Perf ormed at: - [facility] [address] [id number] Correction Officer Reformatory: Mami Frank MD, Phone: [phone] PERFORMED BY: [facility] [address] [place] [address] PATHOLOGIST INTERNAL AFFAIRS INVESTIGATOR CALLI JAFFE M.D. Performed By: #### H CGQNT #### [facility] [address] Thyroid stimulating immunogl obulin (TSI) measurementOrdered By: Shad Alamo on 02-15-2025 Thyroid stimulating immunoglobulins actual/normal (S) [Relative mass conc] Thyroid stimulating immunoglobulin (TSI) measurement 0.00-0.55 [facility] Comment on above: Performed at: [facility] [id number] [place], [place] [id number] Director: Mami Frank MD, Phone: [phone] Thyroid stimulating immunoglobulins actual/normal (S) [Relative mass conc] <0.10 IU/L 0.00-0.55 [facility] Comment on above: Performed at: [facility] - [facility] [address] [id number] Director: Mami Frank MD, Phone: [phone] Alanine aminotransferase [En zymatic activity/volume] in Serum or PlasmaOrdered By: Shad Alamo on 02-01-2025 ALT [Catalytic activity/Vol] Alanine aminotransferase [Enzymatic activity/volume] in Serum or Plasma [facility] ALT [Catalytic activity/Vol] 21 U/L Normal [facility] Comment on above: Order Comment: Reaso n for Exam Generalized anxiety disorder Performed By: #### H CGQNT #### [facility] [address] [place] [address] Albumin [Mass/volume] in Ser um or Plasma by Bromocresol green (BCG) dye binding methoOrdered By: Shad Alamo on 02-01-2025 Albumin BCG dye [Mass/Vol] Albumin [Mass/volume] in Serum or Plasma by Bromocresol green (BCG) dye binding metho 3.5-5.7 [facility] Albumin BCG dye [Mass/Vol] 4.6 g/dL 3.5-5.7 [facility] Alkaline phosphatase [Enzyma tic activity/volume] in Serum or PlasmaOrdered By: Sahd Alamo on 02-01-2025 ALP [Catalytic activity/Vol] Alkaline phosphatase [Enzymatic activity/volume] in Serum or Plasma 34 [facility] ALP [Catalytic activity/Vol] 67 U/L Normal [facility] Comment on above: Order Comment: Reaso n for Exam Generalized anxiety disorder Performed By: #### H CGQNT #### [facility] [address] [place] [address] [place] Aspartate aminotransferase [ Enzymatic activity/volume] in Serum or PlasmaOrdered By: Shad Alamo on 02-01-2025 AST [Catalytic activity/Vol] Aspartate aminotransferase [Enzymatic activity/volume] in Serum or Plasma [facility] AST [Catalytic activity/Vol] 17 U/L Normal - [facility] Comment on above: Order Comment: Reaso n for Exam Generalized anxiety disorder Performed By: #### H CGQNT #### [facility] [address] Basophils Auto (Bld) [#/Vol] Ordered By: Shad Alamo on 02-01-2025 Basophils (Bld) [#/Vol] Automated basoph il count 0.0-0.2 [facility] Basophils [#/volume] in Bloo d by Automated countOrdered By: Shad Alamo on 02-01-2025 Basophils (Bld) [#/Vol] 0.1 10*3/uL Normal 0.0-0.2 [facility] Comment on above: Order Comment: Reaso n for Exam Generalized anxiety disorder Result Comment: PERF ORMED BY: [place] [address] PATHOLOGIST INTERNAL AFFAIRS INVESTIGATOR JEAN CARLOS LYNN M.D. Performed By: #### H CGQNT #### [address] Basophils/100 WBC Auto (Bld) Ordered By: Shad Alamo on 02-01-2025 Basophils/100 WBC (Bld) Automated basophil % . [facility] Basophils/100 leukocytes in Blood by Automated countOrdered By: Shad Alamo on 02-01-2025 Basophils/100 WBC (Bld) 0.9 % Normal . [facility] Comment on above: Order Comment: Reaso n for Exam Generalized anxiety disorder Performed By: #### H CGQNT #### [facility] [address] [place] [address] Bilirubin.total [Mass/volume ] in Serum or PlasmaOrdered By: Shad Alamo on 02-01-2025 Bilirubin [Mass/Vol] Bilirubin.total [Mass/volume] in Serum or Plasma 0.3-1.0 [facility] Bilirubin [Mass/Vol] 0.5 mg/dL Normal 0.3-1.0 [facility] Comment on above: Order Comment: Reaso n for Exam Generalized anxiety disorder Performed By: #### H CGQNT #### [facility] [address] Calcium [Mass/volume] in Ser um or PlasmaOrdered By: Shad Alamo on 02-01-2025 Calcium [Mass/Vol] Calcium [Mass/volume ] in Serum or Plasma 8.6-10.3 [facility] Calcium [Mass/Vol] 10.2 mg/dL Normal 8.6-10.[address] [facility] Comment on above: Order Comment: Reaso n for Exam Generalized anxiety disorder Performed By: #### H CGQNT #### [facility] [address] Carbon dioxide, total [Moles /volume] in Serum or PlasmaOrdered By: Shad Alamo on 02-01-2025 CO2 [Moles/Vol] Carbon dioxide, tota l [Moles/volume] in Serum or Plasma 21.0-31.0 [facility] CO2 [Moles/Vol] 29.9 mmol/L Normal 21.0-31.0 [facility] Comment on above: Order Comment: Reaso n for Exam Generalized anxiety disorder Performed By: #### H CGQNT #### [facility] [address] [place] [address] Chloride [Moles/volume] in S sindi or PlasmaOrdered By: Shad Alamo on 02-01-2025 Chloride [Moles/Vol] Chloride [Moles/volume] in Serum or Plasma 98-107 [facility] Chloride [Moles/Vol] 103 mmol/L Normal 98-107 [facility] Comment on above: Order Comment: Reaso n for Exam Generalized anxiety disorder Performed By: #### H CGQNT #### [facility] [facility] [address] [place] [address] Complete Blood Count Auto Di ffon 02-01-2025 Mean Corpuscular HGB Conc 33.5 g/dL Normal 32.0-35.0 [facility] Comment on above: Order Comment: Reaso n for Exam Generalized anxiety disorder Performed By: #### H CGQNT #### [address] NRBC% 0.0 /100{WBC} Normal 0-0.5 [facility] Comment on above: Order Comment: Reaso n for Exam Generalized anxiety disorder Performed By: #### H CGQNT #### [address] Comprehensive Metabolic Pane ernestine 02-01-2025 Albumin [Mass/Vol] 4.6 g/dL Normal 3.5-5.7 [facility] Comment on above: Order Comment: Reaso n for Exam Generalized anxiety disorder Performed By: #### H CGQNT #### [address] GFR/1.73 sq M.predicted MDRD (S/P/Bld) [Vol rate/Area] mL/min/{1.73_m2} Normal [facility] Comment on above: Order Comment: Reaso n for Exam Generalized anxiety disorder Performed By: #### H CGQNT #### [address] Creatinine [Mass/volume] in Serum or PlasmaOrdered By: Shad Alamo on 02-01-2025 Creatinine [Mass/Vol] Creatinine [Mass/volume] in Serum or Plasma 0.60-1.20 [facility] Creatinine [Mass/Vol] 0.73 mg/dL Normal 0.60-1.[address] [facility] Comment on above: Order Comment: Reaso n for Exam Generalized anxiety disorder Performed By: #### H CGQNT #### [place] [address] [place] Eosinophils Auto (Bld) [#/Vo l]Ordered By: Shad Alamo on 02-01-2025 Eosinophils (Bld) [#/Vol] Automated eosinophil count 0.0-0.45 [facility] Eosinophils [#/volume] in Bl ood by Automated countOrdered By: Shad Alamo on 02-01-2025 Eosinophils (Bld) [#/Vol] 0.1 10*3/uL Normal 0.0-0.45 [facility] Comment on above: Order Comment: Reaso n for Exam Generalized anxiety disorder Performed By: #### H CGQNT #### [address] Eosinophils/100 WBC Auto (Bl d)Ordered By: Shad Alamo on 02-01-2025 Eosinophils/100 WBC (Bld) Automated eosinophil % . [facility] Eosinophils/100 leukocytes i n Blood by Automated countOrdered By: Shad Alamo on 02-01-2025 Eosinophils/100 WBC (Bld) 0.6 % Normal . [facility] Comment on above: Order Comment: Reaso n for Exam Generalized anxiety disorder Performed By: #### H CGQNT #### [address] Erythrocyte distribution wid th Auto (RBC) [Ratio]Ordered By: Shad Alamo on 02-01-2025 Erythrocyte distribution width (RBC) [Ratio] Erythrocyte distribution width [Ratio] by Automated count 11.9-15.3 [facility] Erythrocyte distribution wid th [Ratio] by Automated countOrdered By: Shad Alamo on 02-01-2025 Erythrocyte distribution width (RBC) [Ratio] 14.9 % Normal 11.9-15.3 [facility] Comment on above: Order Comment: Reaso n for Exam Generalized anxiety disorder Performed By: #### H CGQNT #### [address] Erythrocytes [#/volume] in B lood by Automated countOrdered By: Shad Alamo on 02-01-2025 RBC (Bld) [#/Vol] 4.40 10*6/uL Normal 3.60-5.00 [facility] Comment on above: Order Comment: Reaso n for Exam Generalized anxiety disorder Performed By: #### H CGQNT #### [address] Globulin Calc (S) [Mass/Vol] Ordered By: Shad Alamo on 02-01-2025 Globulin (S) [Mass/Vol] Serum globulin measurement by calculation (mass/volume) [facility] Glucose [Mass/volume] in Ser um or PlasmaOrdered By: Shad Alamo on 02-01-2025 Glucose [Mass/Vol] Glucose [Mass/volume ] in Serum or Plasma 70-100 [facility] Comment on above: ADA recommended refe rence rangeRandom Glucose Reference Range is dependent on time and content of last meal. Glucose of more than 200 mg/dL in a nonstressed, ambulatory subject supports the diagnosis of Diabetes Mellitus. Glucose [Mass/Vol] 94 mg/dL Normal 70-[address] [facility] Comment on above: ADA recommended refe rence rangeRandom Glucose Reference Range is dependent on time and content of last meal. Glucose of more than 200 mg/dL in a nonstressed, ambulatory subject supports the diagnosis of Diabetes Mellitus. Order Comment: Reaso n for Exam Generalized anxiety disorder Result Comment: [place] Glucose Reference Range is dependent on time and content of last meal. Glucose of more than 200 mg/dL in a nonstressed, ambulatory subject supports the diagnosis of Diabetes Mellitus. ADA recommended reference range Performed By: #### H CGQNT #### [address] Hematocrit Auto (Bld) [Volum e fraction]Ordered By: Shad Alamo on 02-01-2025 Hematocrit (Bld) [Volume fraction] Hematocrit [Volume Fraction] of Blood by Automated count 34.0-46.4 [facility] Hematocrit [Volume Fraction] of Blood by Automated countOrdered By: Shad Alamo on 02-01-2025 Hematocrit (Bld) [Volume fraction] 38.6 % Normal 34.0-46.4 [facility] Comment on above: Order Comment: Reaso n for Exam Generalized anxiety disorder Performed By: #### H CGQNT #### [address] Hemoglobin [Mass/volume] in BloodOrdered By: Shad Alamo on 02-01-2025 Hemoglobin (Bld) [Mass/Vol] Hemoglobin [Mass/volume] in Blood 11.8-15.4 [facility] Hemoglobin (Bld) [Mass/Vol] 12.9 g/dL Normal 11.8-15.4 [facility] Comment on above: Order Comment: Reaso n for Exam Generalized anxiety disorder Performed By: #### H CGQNT #### [address] [place] [address] [place] Leukocytes [#/volume] correc lashon for nucleated erythrocytes in Blood by Automated counOrdered By: Shad Alamo on 02-01-2025 WBC corrected for nucl RBC Auto (Bld) [#/Vol] Leukocytes [#/volume] corrected for nucleated erythrocytes in Blood by Automated coun 3.8-11.6 [facility] WBC corrected for nucl RBC Auto (Bld) [#/Vol] 8.2 10*3/uL 3.8-11.6 [facility] Leukocytes [#/volume] in Blo od by Automated countOrdered By: Shad Alamo on 02-01-2025 WBC (Bld) [#/Vol] 8.2 10*3/uL Normal 3.8-11.[address] [facility] Comment on above: Order Comment: Reaso n for Exam Generalized anxiety disorder Performed By: #### H CGQNT #### [address] Lymphocytes Auto (Bld) [#/Vo l]Ordered By: Shad Alamo on 02-01-2025 Lymphocytes (Bld) [#/Vol] Lymphocytes [#/volume] in Blood by Automated count 1.00-4.8 [facility] Lymphocytes [#/volume] in Bl ood by Automated countOrdered By: Shad Alamo on 02-01-2025 Lymphocytes (Bld) [#/Vol] 2.9 10*3/uL Normal 1.00-4.8 [facility] Comment on above: Order Comment: Reaso n for Exam Generalized anxiety disorder Performed By: #### H CGQNT #### [address] Lymphocytes/100 WBC Auto (Bl d)Ordered By: Shad Alamo on 02-01-2025 Lymphocytes/100 WBC (Bld) Lymphocytes/100 leukocytes in Blood by Automated count . [facility] Lymphocytes/100 leukocytes i n Blood by Automated countOrdered By: Shad Alamo on 02-01-2025 Lymphocytes/100 WBC (Bld) 35.2 % Normal . [facility] Comment on above: Order Comment: Reaso n for Exam Generalized anxiety disorder Performed By: #### H CGQNT #### [facility] [address] MCH Auto (RBC) [Entitic mass ]Ordered By: Shad Alamo on 02-01-2025 MCH (RBC) [Entitic mass] MCH [Entitic ma ss] by Automated count 24.7-34.3 [facility] MCH [Entitic mass] by Automa lashon countOrdered By: Shad Alamo on 02-01-2025 MCH (RBC) [Entitic mass] 29.4 pg Normal 24.7-34.3 [facility] Comment on above: Order Comment: Reaso n for Exam Generalized anxiety disorder Performed By: #### H CGQNT #### [address] MCHC Auto (RBC) [Mass/Vol]Or dered By: Shad Alamo on 02-01-2025 MCHC (RBC) [Mass/Vol] MCHC [Mass/volume] by Automated count 32.0-35.0 [facility] MCHC (RBC) [Mass/Vol] 33.5 g/dL 32.0-35.[address] [facility] MCV Auto (RBC) [Entitic vol] Ordered By: Shad Alamo on 02-01-2025 MCV (RBC) [Entitic vol] MCV [Entitic vol ume] by Automated count 80-100 [facility] MCV [Entitic volume] by Auto mated countOrdered By: Shad Alamo on 02-01-2025 MCV (RBC) [Entitic vol] 87.7 fL Normal 80-100 [facility] Comment on above: Order Comment: Reaso n for Exam Generalized anxiety disorder Performed By: #### H CGQNT #### [address] Monocytes Auto (Bld) [#/Vol] Ordered By: Shad Alamo on 02-01-2025 Monocytes (Bld) [#/Vol] Automated blood monocyte count 0.0-0.8 [facility] Monocytes [#/volume] in Bloo d by Automated countOrdered By: Shad Alamo on 02-01-2025 Monocytes (Bld) [#/Vol] 0.5 10*3/uL Normal 0.0-0.8 [facility] Comment on above: Order Comment: Reaso n for Exam Generalized anxiety disorder Performed By: #### H CGQNT #### [address] Monocytes/100 WBC Auto (Bld) Ordered By: Shad Alamo on 02-01-2025 Monocytes/100 WBC (Bld) Automated monocyte % . [facility] Monocytes/100 leukocytes in Blood by Automated countOrdered By: Shad Alamo on 02-01-2025 Monocytes/100 WBC (Bld) 5.8 % Normal . [facility] Comment on above: Order Comment: Reaso n for Exam Generalized anxiety disorder Performed By: #### H CGQNT #### [address] Neutrophils Auto (Bld) [#/Vo l]Ordered By: Shad Alamo on 02-01-2025 Neutrophils (Bld) [#/Vol] Neutrophils [#/volume] in Blood by Automated count 1.8-7.7 [facility] Neutrophils [#/volume] in Bl ood by Automated countOrdered By: Shad Alamo on 02-01-2025 Neutrophils (Bld) [#/Vol] 4.7 10*3/uL Normal 1.8-7.7 [facility] Comment on above: Order Comment: Reaso n for Exam Generalized anxiety disorder Performed By: #### H CGQNT #### [address] Neutrophils/100 WBC Auto (Bl d)Ordered By: Shad Alamo on 02-01-2025 Neutrophils/100 WBC (Bld) Automated neutrophil % . [facility] Neutrophils/100 leukocytes i n Blood by Automated countOrdered By: Shad Alamo on 02-01-2025 Neutrophils/100 WBC (Bld) 57.5 % Normal . [facility] Comment on above: Order Comment: Reaso n for Exam Generalized anxiety disorder Performed By: #### H CGQNT #### [address] No Panel InformationOrdered By: Shad Alamo on 02-01-2025 Estimated GFR (CKD-EPI) > 60.0 mL/Min [facility] Creatinine Clearance (Chem N/A [facility] Nucleated erythrocytes [Pres ence] in Blood by Automated countOrdered By: Shad Alamo on 02-01-2025 Nucleated RBC Auto Ql (Bld) Nucleated erythrocytes [Presence] in Blood by Automated count 0-0.5 [facility] Nucleated RBC Auto Ql (Bld) 0.0 /100{WBC} 0-0.5 [facility] Platelet mean volume Auto (B ld) [Entitic vol]Ordered By: Shad Alamo on 02-01-2025 Platelet mean volume (Bld) [Entitic vol] Platelet mean volume [Entitic volume] in Blood by Automated count 6.3-10.7 [facility] Platelet mean volume [Entiti c volume] in Blood by Automated countOrdered By: Shad Alamo on 02-01-2025 Platelet mean volume (Bld) [Entitic vol] 9.2 fL Normal 6.3-10.7 [facility] Comment on above: Order Comment: Reaso n for Exam Generalized anxiety disorder Performed By: #### H CGQNT #### [facility] [address] [place] [address] [place] Platelets Auto (Bld) [#/Vol] Ordered By: Shad Alamo on 02-01-2025 Platelets (Bld) [#/Vol] Platelets [#/vol ume] in Blood by Automated count 150-450 [facility] Platelets [#/volume] in Bloo d by Automated countOrdered By: Shad Alamo on 02-01-2025 Platelets (Bld) [#/Vol] 376 10*3/uL Normal 150-450 [facility] Comment on above: Order Comment: Reaso n for Exam Generalized anxiety disorder Performed By: #### H CGQNT #### [facility] [address] [place] [address] [place] Potassium [Moles/volume] in Serum or PlasmaOrdered By: Shad Alamo on 02-01-2025 Potassium [Moles/Vol] Potassium [Moles/volume] in Serum or Plasma 3.5-5.1 [facility] Potassium [Moles/Vol] 4.2 mmol/L Normal 3.5-5.[address] [facility] Comment on above: Order Comment: Reaso n for Exam Generalized anxiety disorder Performed By: #### H CGQNT #### [address] Protein [Mass/volume] in Ser um or PlasmaOrdered By: Shad Alamo on 02-01-2025 Protein [Mass/Vol] Protein [Mass/volume ] in Serum or Plasma 6.4-8.9 [facility] Protein [Mass/Vol] 7.6 g/dL Normal 6.4-8.[address] [facility] Comment on above: Order Comment: Reaso n for Exam Generalized anxiety disorder Performed By: #### H CGQNT #### [address] RBC Auto (Bld) [#/Vol]Ordere d By: Shad Alamo on 02-01-2025 RBC (Bld) [#/Vol] Erythrocytes [#/volume] in Blood by Automated count 3.60-5.00 [facility] Serum globulin measurement b y calculation (mass/volume)Ordered By: Shad Alamo on 02-01-2025 Globulin (S) [Mass/Vol] 3.0 g/dL Normal [facility] Comment on above: Order Comment: Reaso n for Exam Generalized anxiety disorder Performed By: #### H CGQNT #### [facility] [address] [place] [address] Serum or plasma albumin/glob ulin mass ratioOrdered By: Shad Alamo on 02-01-2025 Albumin/Globulin [Mass ratio] Serum or plasma albumin/globulin mass ratio [facility] Albumin/Globulin [Mass ratio] 1.5 {ratio} Normal [facility] Comment on above: Order Comment: Reaso n for Exam Generalized anxiety disorder Performed By: #### H CGQNT #### [address] Serum or plasma anion gap de terminationOrdered By: Shad Alamo on 02-01-2025 Anion gap [Moles/Vol] Serum or plasma an ion gap determination 6.0-15.0 [facility] Anion gap [Moles/Vol] 7.3 mmol/L Normal 6.0-15.[address] [facility] Comment on above: Order Comment: Reaso n for Exam Generalized anxiety disorder Performed By: #### H CGQNT #### [facility] [address] [place] [address] [place] Sodium [Moles/volume] in Ser um or PlasmaOrdered By: Shad Alamo on 02-01-2025 Sodium [Moles/Vol] Sodium [Moles/volume ] in Serum or Plasma 136-145 [facility] Sodium [Moles/Vol] 136 mmol/L Normal 136-[address] [facility] Comment on above: Order Comment: Reaso n for Exam Generalized anxiety disorder Performed By: #### H CGQNT #### [facility] [address] [place] [address] Thyroid Stim Hormone w/Rflxo n 02-01-2025 Thyroid Stim Hormone w/Rflx 0.38 u[iU]/mL Low 0.45-5.33 [facility] Comment on above: Order Comment: Reaso n for Exam Generalized anxiety disorder Result Comment: PERF ORMED BY: [place] [address] PATHOLOGIST INTERNAL AFFAIRS INVESTIGATOR JEAN CARLOS LYNN M.D. Performed By: #### H CGQNT #### [facility] [address] [place] [address] Thyrotropin [Units/volume] i n Serum or PlasmaOrdered By: Shad Alamo on 02-01-2025 TSH Qn Thyrotropin [Units/volume] in Serum or Plasma Low 0.45-5.33 [facility] TSH Qn 0.38 m[IU]/L Low 0.45-5.33 [facility] Thyroxine (T4) free [Mass/vo lume] in Serum or PlasmaOrdered By: Shad Alamo on 02-01-2025 Free T4 [Mass/Vol] Thyroxine (T4) free [Mass/volume] in Serum or Plasma 0.61-1.12 [facility] Free T4 [Mass/Vol] 0.79 ng/dL Normal 0.61-1.[address] [facility] Comment on above: Order Comment: Reaso n for Exam Generalized anxiety disorder Performed By: #### H CGQNT #### [facility] [address] Urea nitrogen [Mass/volume] in Serum or PlasmaOrdered By: Shad Alamo on 02-01-2025 Urea nitrogen [Mass/Vol] Urea nitrogen [Mass/volume] in Serum or Plasma 04-14 [facility] Urea nitrogen [Mass/Vol] 13 mg/dL Normal 04-14 [facility] Comment on above: Order Comment: Reaso n for Exam Generalized anxiety disorder Performed By: #### H CGQNT #### [facility] [address] [place] [id number] [facility] WBC Auto (Bld) [#/Vol]Ordere d By: Shad Alamo on 02-01-2025 WBC (Bld) [#/Vol] Leukocytes [#/volume ] in Blood by Automated count 3.8-11.6 [facility] Urine Cultureon 09-24-2024 Bacteria identified Cx Nom (U) ORGANISM: Enterococcus faecalis (O:ENTFAC) [place] Count 40,000 Aerobic JOSE Charge (PCMIC38) --- [...] RESISTANT TO ALL B-LACTAM DRUGS. PERFORMED BY: [facility] [address] [place] [address] PATHOLOGIST INTERNAL AFFAIRS INVESTIGATOR JEAN CARLOS LYNN M.D. Normal [facility] Comment on above: Performed By: #### C UU #### [facility] [address] Stone Analysison 07-19-2024 Calculi description See Note [facility] Comment on above: Result Comment: (NOT E) Specimen consists of one brown and crane calculus. The total weight is 24 mg. Performed By: #### A STONE #### [employer] [address] [place] [id number] Correction Officer Reformatory: Merrill Faulkner MD Composition See Note [facility] Comment on above: Result Comment: (NOT [...] composition determined by FTIR analysis. Performed By: [employer] [address] [place] [id number] Pan Tank Worker: Andrews Marx MD, PhD CLIA Number: [id number] Performed By: #### A STONE #### [address] [address] Correction Officer Reformatory: Merrill Faulkner MD Mass 24 mg [facility] Comment on above: Performed By: #### A STONE #### [employer] [address] [place] [address] Correction Officer Reformatory: Merrill Faulkner MD FLUORO FOR SURGICAL PROCEDUR ESon 07-14-2024 FLUORO FOR SURGICAL PROCEDURES Radiology exam is complete. No Radiologist dictation. Please follow up with ordering provider. Final result Normal [facility] HCG, ,Urineon 07-14 Beta HCG ( test) Ql (U) Negative Normal NEG [facility] Comment on above: Result Comment: Spec imens with hCG levels near the threshold of the test (25 mIU/mL) may give a negative or indeterminate result. In such cases, another test should be performed with a new specimen in 48-72 hours. If early is suspected clinically in this setting, correlation with quantitative serum b-hCG level is suggested. [facility] has confirmed the use of plasma for this test. This has not been cleared or approved by the U.S. Food and Drug Administration. The FDA has determined that such clearance is not necessary. Performed By: #### U HCG #### [facility] [address] [place] [address] [place]. [place], [place] [id number] Correction Officer Reformatory: Ganesh Newman MD Alanine aminotransferase [En zymatic activity/volume] in Serum or PlasmaOrdered By: Felix Simpson on 07-11-2024 ALT [Catalytic activity/Vol] 30 U/L Normal [facility] Comment on above: Performed By: #### H EPATIC, LIPASE, BMP, CBC #### [facility] [address] [place] [address] ALT [Catalytic activity/Vol] Alanine aminotransferase [Enzymatic activity/volume] in Serum or Plasma [facility] Albumin [Mass/volume] in Ser um or Plasma by Bromocresol green (BCG) dye binding methoOrdered By: Felix Simpson on 07-11-2024 Albumin BCG dye [Mass/Vol] 4.6 g/dL 3.5-5.7 [facility] Albumin BCG dye [Mass/Vol] Albumin [Mass/volume] in Serum or Plasma by Bromocresol green (BCG) dye binding metho 3.5-5.7 [facility] Alkaline phosphatase [Enzyma tic activity/volume] in Serum or PlasmaOrdered By: Felix Simpson on 07-11-2024 ALP [Catalytic activity/Vol] 58 U/L Normal [facility] Comment on above: Performed By: #### H EPATIC, LIPASE, BMP, CBC #### [facility] [address] [place] [address] [facility] ALP [Catalytic activity/Vol] Alkaline phosphatase [Enzymatic activity/volume] in Serum or Plasma [facility] Appearance of UrineOrdered B y: [employer] Simpson on 10-21-2024 Appearance (U) Urine appearance Abnormal Clear [facility] Aspartate aminotransferase [ Enzymatic activity/volume] in Serum or PlasmaOrdered By: Felix Simpson on 07-11-2024 AST [Catalytic activity/Vol] 24 U/L Normal [facility] Comment on above: Performed By: #### H EPATIC, LIPASE, BMP, CBC #### [address] AST [Catalytic activity/Vol] Aspartate aminotransferase [Enzymatic activity/volume] in Serum or Plasma [facility] Automated basophil %Ordered By: Felix Simpson on 07-11-2024 Basophils/100 WBC (Bld) 0.6 % Normal . [facility] Comment on above: Performed By: #### H EPATIC, LIPASE, BMP, CBC #### [address] Automated basophil countOrde red By: Felix Simpson on 07-11-2024 Basophils (Bld) [#/Vol] 0.1 10*3/uL Normal 0.0-0.2 [facility] Comment on above: Result Comment: PERF ORMED BY: [place] [address] PATHOLOGIST INTERNAL AFFAIRS INVESTIGATOR WARREN BUSTAMANTE M.D. Performed By: #### H EPATIC, LIPASE, BMP, CBC #### [address] Automated blood monocyte cou ntOrdered By: Felix Simpson on 07-11-2024 Monocytes (Bld) [#/Vol] 0.9 10*3/uL High 0.0-0.8 [facility] Comment on above: Performed By: #### H EPATIC, LIPASE, BMP, CBC #### [address] Automated eosinophil %Ordere d By: Felix Simpson on 07-11-2024 Eosinophils/100 WBC (Bld) 0.6 % Normal . [facility] Comment on above: Performed By: #### H EPATIC, LIPASE, BMP, CBC #### [address] Automated eosinophil countOr dered By: Felix Simpson on 07-11-2024 Eosinophils (Bld) [#/Vol] 0.1 10*3/uL Normal 0.0-0.45 [facility] Comment on above: Performed By: #### H EPATIC, LIPASE, BMP, CBC #### [address] Automated monocyte %Ordered By: Felix Simpson on 07-11-2024 Monocytes/100 WBC (Bld) 10.5 % Normal . [facility] Comment on above: Performed By: #### H EPATIC, LIPASE, BMP, CBC #### [address] Automated neutrophil %Ordere d By: Felix Simpson on 07-11-2024 Neutrophils/100 WBC (Bld) 63.3 % Normal . [facility] Comment on above: Performed By: #### H EPATIC, LIPASE, BMP, CBC #### [address] Bacteria [Presence] in Urine by AutomatedOrdered By: Felix Simpson on 07-11-2024 Bacteria Auto Ql (U) Rare [HPF] None Seen [facility] Bacteria Auto Ql (U) Bacteria [Presence] in Urine by Automated None Seen [facility] Basic Metabolic Panelon 06-22 Creatinine Clr Calc Pharmacy 123.53 Normal [facility] Comment on above: Performed By: #### H EPATIC, LIPASE, BMP, CBC #### [address] GFR/1.73 sq M.predicted MDRD (S/P/Bld) [Vol rate/Area] mL/min/{1.73_m2} Normal [facility] Comment on above: Performed By: #### H EPATIC, LIPASE, BMP, CBC #### [address] Basophils Auto (Bld) [#/Vol] Ordered By: Felix Simpson on 07-11-2024 Basophils (Bld) [#/Vol] Automated basoph il count 0.0-0.2 [facility] Basophils/100 WBC Auto (Bld) Ordered By: Felix Simpson on 07-11-2024 Basophils/100 WBC (Bld) Automated basophil % . [facility] Bilirubin Test strip Ql (U)O rdered By: Felix Simpson on 07-11-2024 Bilirubin Ql (U) Negative Negative [facility] Bilirubin Ql (U) Bilirubin.total [Presence] in Urine by Test strip Negative [facility] Bilirubin.direct [Mass/volum e] in Serum or PlasmaOrdered By: Felix Simpson on 07-11-2024 Bilirubin.direct [Mass/Vol] 0.20 mg/dL High 0.03-0.18 [facility] Bilirubin.direct [Mass/Vol] Bilirubin.direct [Mass/volume] in Serum or Plasma High 0.03-0.18 [facility] Bilirubin.total [Mass/volume ] in Serum or PlasmaOrdered By: Felix Simpson on 07-11-2024 Bilirubin [Mass/Vol] 0.9 mg/dL Normal 0.3-1.0 [facility] Comment on above: Performed By: #### H EPATIC, LIPASE, BMP, CBC #### [facility] [address] Bilirubin [Mass/Vol] Bilirubin.total [Mass/volume] in Serum or Plasma 0.3-1.0 [facility] CT abdomen pelvis wo conon 1 CT abdomen pelvis wo con [facility] [address] [place] [address] [place] [address] CT Scan Report Signed Patient: Beatris Mack MR#: [id number] : 2000 Acct:[id number] Age/Sex: 24 / F ADM Date: 07/11/24 Loc: ER Room: Type: [facility] ER Attending Dr: Copies to: Felix [...] Gayle Knox M.D.07/11/2024 3:17 PM Dictation Location: [place] [address] Transcribed By: [facility] 07/11/241516 Dictated By: Gayle Knox II, MD 07/11/241510 Signed By: 07/11/241516 Normal [facility] Calcium [Mass/volume] in Ser um or PlasmaOrdered By: Felix Simpson on 07-11-2024 Calcium [Mass/Vol] 10.0 mg/dL Normal 8.6-10.[address] [facility] Comment on above: Performed By: #### H EPATIC, LIPASE, BMP, CBC #### [facility] [address] Calcium [Mass/Vol] Calcium [Mass/volume ] in Serum or Plasma 8.6-10.3 [facility] Carbon dioxide, total [Moles /volume] in Serum or PlasmaOrdered By: Felix Simpson on 07-11-2024 CO2 [Moles/Vol] 24.2 mmol/L Normal 21.0-31.0 [facility] Comment on above: Performed By: #### H EPATIC, LIPASE, BMP, CBC #### [facility] [address] CO2 [Moles/Vol] Carbon dioxide, tota l [Moles/volume] in Serum or Plasma 21.0-31.0 [facility] Chloride [Moles/volume] in S sindi or PlasmaOrdered By: Felix Simpson on 07-11-2024 Chloride [Moles/Vol] 104 mmol/L Normal 98-107 [facility] Comment on above: Performed By: #### H EPATIC, LIPASE, BMP, CBC #### [address] Chloride [Moles/Vol] Chloride [Moles/volume] in Serum or Plasma 98-107 [facility] Color Auto (U)Ordered By: Drew Simpson on 07-11-2024 Color (U) Color of Urine by Auto Yellow [facility] Color of Urine by AutoOrdere d By: Felix Simpson on 07-11-2024 Color (U) Yellow Normal Yellow [facility] Comment on above: Order Comment: Name Collection Type:: Clean-Voided Midstream Performed By: #### U HCG, ADDONUAPLUS #### [facility] [address] Complete Blood Count Auto Di ffon 07-11-2024 Mean Corpuscular HGB Conc 33.2 g/dL Normal 32.0-35.0 [facility] Comment on above: Performed By: #### H EPATIC, LIPASE, BMP, CBC #### [facility] [address] [place] [address] [place] Monocytes/100 WBC (Bld) 16.73 % Normal 0.00-20.00 [facility] Comment on above: Performed By: #### H EPATIC, LIPASE, BMP, CBC #### [facility] [address] [place] [address] NRBC% 0.0 /100{WBC} Normal 0-0.5 [facility] Comment on above: Performed By: #### H EPATIC, LIPASE, BMP, CBC #### [address] Creatinine [Mass/volume] in Serum or PlasmaOrdered By: Felix Simpson on 07-11-2024 Creatinine [Mass/Vol] 0.77 mg/dL Normal 0.60-1.[address] [facility] Comment on above: Performed By: #### H EPATIC, LIPASE, BMP, CBC #### [address] Creatinine [Mass/Vol] Creatinine [Mass/volume] in Serum or Plasma 0.60-1.20 [facility] Crystals [Presence] in Urine by AutomatedOrdered By: Felix Simpson on 07-11-2024 Crystals Auto Ql (U) 2+ [HPF] [facility] Crystals Auto Ql (U) Crystals [Presence] in Urine by Automated [facility] Dipstick and Microscopicon 1 Bacteria,Urine Rare Normal None Seen [facility] Comment on above: Order Comment: Name Collection Type:: Clean-Voided Midstream Performed By: #### U HCG, ADDONUAPLUS #### [address] Bilirubin,Urine Negative Normal Negative [facility] Comment on above: Order Comment: Name Collection Type:: Clean-Voided Midstream Performed By: #### U HCG, ADDONUAPLUS #### [address] Glucose Ql (U) Normal Normal Normal [facility] Comment on above: Order Comment: Name Collection Type:: Clean-Voided Midstream Performed By: #### U HCG, ADDONUAPLUS #### [address] [place] [address] [place] Hyaline Casts,Urine None Normal 0-8 [facility] Comment on above: Order Comment: Name Collection Type:: Clean-Voided Midstream Performed By: #### U HCG, ADDONUAPLUS #### [address] Mucus,Urine 3+ Critically abnormal [facility] Comment on above: Order Comment: Name Collection Type:: Clean-Voided Midstream Performed By: #### U HCG, ADDONUAPLUS #### [place] [address] [place] Nitrite,Urine Negative Normal Negative [facility] Comment on above: Order Comment: Name Collection Type:: Clean-Voided Midstream Performed By: #### U HCG, ADDONUAPLUS #### [address] Occult Blood,Urine 3+ High Negative [facility] Comment on above: Order Comment: Name Collection Type:: Clean-Voided Midstream Performed By: #### U HCG, ADDONUAPLUS #### [place] [address] [place] Othe Crystals,Urine 2+ Normal [facility] Comment on above: Order Comment: Name Collection Type:: Clean-Voided Midstream Performed By: #### U HCG, ADDONUAPLUS #### [place] [address] [place] RBC,Urine Innumerable High 0-4 [facility] Comment on above: Order Comment: Name Collection Type:: Clean-Voided Midstream Performed By: #### U HCG, ADDONUAPLUS #### [facility] [address] [place] [address] [place] Specificy [place],Urine 1.032 High 1.001-1.030 [facility] Comment on above: Order Comment: Name Collection Type:: Clean-Voided Midstream Performed By: #### U HCG, ADDONUAPLUS #### [place] [address] [place] Squamous Epithelial Cell,Urine 5-9 High 0-2 [facility] Comment on above: Order Comment: Name Collection Type:: Clean-Voided Midstream Performed By: #### U HCG, ADDONUAPLUS #### [facility] [address] [place] [address] Urobilinogen,Urine Normal Normal Normal [facility] Comment on above: Order Comment: Name Collection Type:: Clean-Voided Midstream Performed By: #### U HCG, ADDONUAPLUS #### [facility] [address] [place] [address] WBC CLUMP, Urine Occasional High None Seen [facility] Comment on above: Order Comment: Name Collection Type:: Clean-Voided Midstream Performed By: #### U HCG, ADDONUAPLUS #### [facility] [address] [place] [address] WBC,Urine 10-19 High 0-4 [facility] Comment on above: Order Comment: Name Collection Type:: Clean-Voided Midstream Performed By: #### U HCG, ADDONUAPLUS #### [facility] [address] [place] [address] Eosinophils Auto (Bld) [#/Vo l]Ordered By: Felix Simpson on 07-11-2024 Eosinophils (Bld) [#/Vol] Automated eosinophil count 0.0-0.45 [facility] Eosinophils/100 WBC Auto (Bl d)Ordered By: Felix Simpson on 07-11-2024 Eosinophils/100 WBC (Bld) Automated eosinophil % . [facility] Epithelial cells.squamous [# /area] in Urine sediment by Automated countOrdered By: Felix Simpson on 07-11-2024 Epithelial cells.squamous Auto (Urine sed) [#/Area] 5-9 [HPF] High 0-2 [facility] Epithelial cells.squamous Auto (Urine sed) [#/Area] Epithelial cells.squamous [#/area] in Urine sediment by Automated count High 0-2 [facility] Erythrocyte distribution wid th Auto (RBC) [Ratio]Ordered By: Felix Simpson on 07-11-2024 Erythrocyte distribution width (RBC) [Ratio] Erythrocyte distribution width [Ratio] by Automated count 11.9-15.3 [facility] Erythrocyte distribution wid th [Ratio] by Automated countOrdered By: Felix Simpson on 07-11-2024 Erythrocyte distribution width (RBC) [Ratio] 14.7 % Normal 11.9-15.3 [facility] Comment on above: Performed By: #### H EPATIC, LIPASE, BMP, CBC #### [facility] [address] Erythrocytes [#/area] in Uri ne sediment by Automated countOrdered By: Felix Simpson on 07-11-2024 RBC Auto (Urine sed) [#/Area] Innumerable [HPF] High 0-4 [facility] RBC Auto (Urine sed) [#/Area] Erythrocytes [#/area] in Urine sediment by Automated count High 0-4 [facility] Erythrocytes [#/volume] in B lood by Automated countOrdered By: Felix Simpson on 07-11-2024 RBC (Bld) [#/Vol] 4.30 10*6/uL Normal 3.60-5.00 [facility] Comment on above: Performed By: #### H EPATIC, LIPASE, BMP, CBC #### [address] Globulin Calc (S) [Mass/Vol] Ordered By: Felix Simpson on 07-11-2024 Globulin (S) [Mass/Vol] Serum globulin measurement by calculation (mass/volume) [facility] Glucose [Mass/volume] in Ser um or PlasmaOrdered By: Felix Simpson on 07-11-2024 Glucose [Mass/Vol] 91 mg/dL Normal 70-[address] [facility] Comment on above: ADA recommended refe rence rangeRandom Glucose Reference Range is dependent on time and content of last meal. Glucose of more than 200 mg/dL in a nonstressed, ambulatory subject supports the diagnosis of Diabetes Mellitus. Result Comment: [place] om Glucose Reference Range is dependent on time and content of last meal. Glucose of more than 200 mg/dL in a nonstressed, ambulatory subject supports the diagnosis of Diabetes Mellitus. ADA recommended reference range Performed By: #### H EPATIC, LIPASE, BMP, CBC #### [facility] [address] [place] [address] Glucose [Mass/Vol] Glucose [Mass/volume ] in Serum or Plasma 70-100 [facility] Comment on above: ADA recommended refe rence rangeRandom Glucose Reference Range is dependent on time and content of last meal. Glucose of more than 200 mg/dL in a nonstressed, ambulatory subject supports the diagnosis of Diabetes Mellitus. Glucose [Mass/volume] in Uri ne by Test stripOrdered By: Felix Simpson on 07-11-2024 Glucose Test strip (U) [Mass/Vol] Normal mg/dL Normal [facility] Glucose Test strip (U) [Mass/Vol] Glucose [Mass/volume] in Urine by Test strip Normal [facility] HCG ( test) IA.rapi d Ql (U)Ordered By: Felix Simpson on 07-11-2024 HCG ( test) Ql (U) Negative [facility] HCG ( test) Ql (U) Urine human chorionic gonadotropin (hCG) detection by immunoassay [facility] HCG,Urineon 07-11-2024 Beta HCG ( test) Ql (U) Negative Normal [facility] Comment on above: Order Comment: Name Collection Type:: Clean-Voided Midstream Result Comment: PERF ORMED BY: [place] [address] PATHOLOGIST INTERNAL AFFAIRS INVESTIGATOR WARREN BUSTAMANTE M.D. Performed By: #### U HCG, ADDONUAPLUS #### [facility] [address] [place] [address] Hematocrit Auto (Bld) [Volum e fraction]Ordered By: Felix Simpson on 07-11-2024 Hematocrit (Bld) [Volume fraction] Hematocrit [Volume Fraction] of Blood by Automated count 34.0-46.4 [facility] Hematocrit [Volume Fraction] of Blood by Automated countOrdered By: Felix Simpson on 07-11-2024 Hematocrit (Bld) [Volume fraction] 38.2 % Normal 34.0-46.4 [facility] Comment on above: Performed By: #### H EPATIC, LIPASE, BMP, CBC #### [facility] [address] Hemoglobin Test strip Ql (U) Ordered By: Felix Simpson on 07-11-2024 Hemoglobin Ql (U) 3+ High Negative [facility] Hemoglobin Ql (U) Hemoglobin [Presence ] in Urine by Test strip High Negative [facility] Hemoglobin [Mass/volume] in BloodOrdered By: Felix Simpson on 07-11-2024 Hemoglobin (Bld) [Mass/Vol] 12.7 g/dL Normal 11.8-15.4 [facility] Comment on above: Performed By: #### H EPATIC, LIPASE, BMP, CBC #### [address] Hemoglobin (Bld) [Mass/Vol] Hemoglobin [Mass/volume] in Blood 11.8-15.4 [facility] Hepatic Panelon 07-11-2024 Albumin [Mass/Vol] 4.6 g/dL Normal 3.5-5.7 [facility] Comment on above: Performed By: #### H EPATIC, LIPASE, BMP, CBC #### [address] Bilirubin,Indirect 0.7 mg/dL Normal [facility] Comment on above: Performed By: #### H EPATIC, LIPASE, BMP, CBC #### [address] Bilirubin.indirect [Mass/Vol] 0.20 mg/dL High 0.03-0.18 [facility] Comment on above: Performed By: #### H EPATIC, LIPASE, BMP, CBC #### [address] Hyaline casts [#/area] in Ur ine sediment by Automated countOrdered By: Felix Simpson on 07-11-2024 Hyaline casts Auto (Urine sed) [#/Area] None [LPF] 0-8 [facility] Hyaline casts Auto (Urine sed) [#/Area] Hyaline casts [#/area] in Urine sediment by Automated count 0-8 [facility] Ketones Test strip Ql (U)Ord ered By: Felix Simpson on 07-11-2024 Ketones Ql (U) Ketones [Presence] i n Urine by Test strip High Negative [facility] Ketones [Presence] in Urine by Test stripOrdered By: Felix Simpson on 07-11-2024 Ketones Ql (U) 3+ High Negative [facility] Comment on above: Order Comment: Name Collection Type:: Clean-Voided Midstream Performed By: #### U HCG, ADDONUAPLUS #### [facility] [address] [place] [address] Leukocyte clumps [Presence] in Urine by AutomatedOrdered By: Felix Simpson on 07-11-2024 Leukocyte clumps Auto Ql (U) Occasional [LPF] High None Seen [facility] Leukocyte clumps Auto Ql (U) Leukocyte clumps [Presence] in Urine by Automated High None Seen [facility] Leukocyte esterase [Presence ] in Urine by Test stripOrdered By: Felix Simpson on 07-11-2024 Leukocyte esterase Test strip Ql (U) Negative Normal Negative [facility] Comment on above: Order Comment: Name Collection Type:: Clean-Voided Midstream Performed By: #### U HCG, ADDONUAPLUS #### [facility] [address] [place] [address] Leukocyte esterase Test strip Ql (U) Leukocyte esterase [Presence] in Urine by Test strip Negative [facility] Leukocytes [#/area] in Urine sediment by Automated countOrdered By: Felix Simpson on 07-11-2024 WBC Auto (Urine sed) [#/Area] 10-19 [HPF] High 0-4 [facility] WBC Auto (Urine sed) [#/Area] Leukocytes [#/area] in Urine sediment by Automated count High 0-4 [facility] Leukocytes [#/volume] correc lashon for nucleated erythrocytes in Blood by Automated counOrdered By: Felix Simpson on 07-11-2024 WBC corrected for nucl RBC Auto (Bld) [#/Vol] 8.8 10*3/uL 3.8-11.6 [facility] WBC corrected for nucl RBC Auto (Bld) [#/Vol] Leukocytes [#/volume] corrected for nucleated erythrocytes in Blood by Automated coun 3.8-11.6 [facility] Leukocytes [#/volume] in Blo od by Automated countOrdered By: Felix Simpson on 07-11-2024 WBC (Bld) [#/Vol] 8.8 10*3/uL Normal 3.8-11.[address] [facility] Comment on above: Performed By: #### H EPATIC, LIPASE, BMP, CBC #### [address] Lipase [Enzymatic activity/v olume] in Serum or PlasmaOrdered By: Felix Simpson on 07-11-2024 Lipase [Catalytic activity/Vol] 26.0 U/L Normal 11.0-82.0 [facility] Comment on above: Result Comment: PERF ORMED BY: [place] [address] PATHOLOGIST INTERNAL AFFAIRS INVESTIGATOR WARREN BUSTAMANTE M.D. Performed By: #### H EPATIC, LIPASE, BMP, CBC #### [address] Lipase [Catalytic activity/Vol] Lipase [Enzymatic activity/volume] in Serum or Plasma 11.0-82.0 [facility] Lymphocytes Auto (Bld) [#/Vo l]Ordered By: Felix Simpson on 07-11-2024 Lymphocytes (Bld) [#/Vol] Lymphocytes [#/volume] in Blood by Automated count 1.00-4.8 [facility] Lymphocytes [#/volume] in Bl ood by Automated countOrdered By: Felix Simpson on 07-11-2024 Lymphocytes (Bld) [#/Vol] 2.2 10*3/uL Normal 1.00-4.8 [facility] Comment on above: Performed By: #### H EPATIC, LIPASE, BMP, CBC #### [address] Lymphocytes/100 WBC Auto (Bl d)Ordered By: Felix Simpson on 07-11-2024 Lymphocytes/100 WBC (Bld) Lymphocytes/100 leukocytes in Blood by Automated count . [facility] Lymphocytes/100 leukocytes i n Blood by Automated countOrdered By: Felix Simpson on 07-11-2024 Lymphocytes/100 WBC (Bld) 25.0 % Normal . [facility] Comment on above: Performed By: #### H EPATIC, LIPASE, BMP, CBC #### [facility] [address] MCH Auto (RBC) [Entitic mass ]Ordered By: Felix Simpson on 07-11-2024 MCH (RBC) [Entitic mass] MCH [Entitic ma ss] by Automated count 24.7-34.3 [facility] MCH [Entitic mass] by Automa lashon countOrdered By: Felix Simpson on 07-11-2024 MCH (RBC) [Entitic mass] 29.5 pg Normal 24.7-34.3 [facility] Comment on above: Performed By: #### H EPATIC, LIPASE, BMP, CBC #### [facility] [address] MCHC Auto (RBC) [Mass/Vol]Or dered By: Felix Simpson on 07-11-2024 MCHC (RBC) [Mass/Vol] 33.2 g/dL 32.0-35.[address] [facility] MCHC (RBC) [Mass/Vol] MCHC [Mass/volume] by Automated count 32.0-35.0 [facility] MCV Auto (RBC) [Entitic vol] Ordered By: Felix Simpson on 07-11-2024 MCV (RBC) [Entitic vol] MCV [Entitic vol ume] by Automated count 80-100 [facility] MCV [Entitic volume] by Auto mated countOrdered By: Felix Simpson on 07-11-2024 MCV (RBC) [Entitic vol] 88.9 fL Normal 80-100 [facility] Comment on above: Performed By: #### H EPATIC, LIPASE, BMP, CBC #### [facility] [address] Monocyte distribution width [Entitic volume] in Blood by AutomatedOrdered By: Felix Simpson on 07-11-2024 Monocyte distribution width Auto (Bld) [Entitic vol] 16.73 % 0.00-20.00 [facility] Monocyte distribution width Auto (Bld) [Entitic vol] Monocyte distribution width [Entitic volume] in Blood by Automated 0.00-20.00 [facility] Monocytes Auto (Bld) [#/Vol] Ordered By: Felix Simpson on 07-11-2024 Monocytes (Bld) [#/Vol] Automated blood monocyte count High 0.0-0.8 [facility] Monocytes/100 WBC Auto (Bld) Ordered By: Felix Simpson on 07-11-2024 Monocytes/100 WBC (Bld) Automated monocyte % . [facility] Mucus [Presence] in Urine by AutomatedOrdered By: Felix Simpson on 07-11-2024 Mucus Auto Ql (U) 3+ [LPF] Abnormal [facility] Mucus Auto Ql (U) Mucus [Presence] in Urine by Automated Abnormal [facility] Neutrophils Auto (Bld) [#/Vo l]Ordered By: Felix Sipmson on 07-11-2024 Neutrophils (Bld) [#/Vol] Neutrophils [#/volume] in Blood by Automated count 1.8-7.7 [facility] Neutrophils [#/volume] in Bl ood by Automated countOrdered By: Felix Simpson on 07-11-2024 Neutrophils (Bld) [#/Vol] 5.5 10*3/uL Normal 1.8-7.7 [facility] Comment on above: Performed By: #### H EPATIC, LIPASE, BMP, CBC #### [facility] [address] Neutrophils/100 WBC Auto (Bl d)Ordered By: Felix Simpson on 07-11-2024 Neutrophils/100 WBC (Bld) Automated neutrophil % . [facility] Nitrite Test strip Ql (U)Ord ered By: Felix Simpson on 07-11-2024 Nitrite Ql (U) Negative Negative [facility] Nitrite Ql (U) Nitrite [Presence] i n Urine by Test strip Negative [facility] No Panel InformationOrdered By: Felix Simpson on 07-11-2024 Estimated GFR (CKD-EPI) > 60.0 mL/Min [facility] Creatinine Clearance (Chem 123.53 [facility] Nucleated erythrocytes [Pres ence] in Blood by Automated countOrdered By: Felix Simpson on 07-11-2024 Nucleated RBC Auto Ql (Bld) 0.0 /100{WBC} 0-0.5 [facility] Nucleated RBC Auto Ql (Bld) Nucleated erythrocytes [Presence] in Blood by Automated count 0-0.5 [facility] Platelet mean volume Auto (B ld) [Entitic vol]Ordered By: Felix Simpson on 07-11-2024 Platelet mean volume (Bld) [Entitic vol] Platelet mean volume [Entitic volume] in Blood by Automated count 6.3-10.7 [facility] Platelet mean volume [Entiti c volume] in Blood by Automated countOrdered By: Felix Simpson on 07-11-2024 Platelet mean volume (Bld) [Entitic vol] 8.8 fL Normal 6.3-10.7 [facility] Comment on above: Performed By: #### H EPATIC, LIPASE, BMP, CBC #### [facility] [address] [place] [address] Platelets Auto (Bld) [#/Vol] Ordered By: Felix Simpson on 07-11-2024 Platelets (Bld) [#/Vol] Platelets [#/vol ume] in Blood by Automated count 150-450 [facility] Platelets [#/volume] in Bloo d by Automated countOrdered By: Felix Simpson on 07-11-2024 Platelets (Bld) [#/Vol] 300 10*3/uL Normal 150-450 [facility] Comment on above: Performed By: #### H EPATIC, LIPASE, BMP, CBC #### [facility] [address] [place] [address] Potassium [Moles/volume] in Serum or PlasmaOrdered By: Felix Simpson on 07-11-2024 Potassium [Moles/Vol] 3.7 mmol/L Normal 3.5-5.[address] [facility] Comment on above: Performed By: #### H EPATIC, LIPASE, BMP, CBC #### [facility] [address] [place] [address] Potassium [Moles/Vol] Potassium [Moles/volume] in Serum or Plasma 3.5-5.1 [facility] Protein Test strip (U) [Mass /Vol]Ordered By: Felix Simpson on 07-11-2024 Protein (U) [Mass/Vol] Protein [Mass/vol ume] in Urine by Test strip High Negative [facility] Protein [Mass/volume] in Ser um or PlasmaOrdered By: Felix Simpson on 07-11-2024 Protein [Mass/Vol] 7.6 g/dL Normal 6.4-8.[address] [facility] Comment on above: Performed By: #### H EPATIC, LIPASE, BMP, CBC #### [address] Protein [Mass/Vol] Protein [Mass/volume ] in Serum or Plasma 6.4-8.9 [facility] Protein [Mass/volume] in Uri ne by Test stripOrdered By: Felix Simpson on 07-11-2024 Protein (U) [Mass/Vol] 50 mg/dL High Negative [facility] Comment on above: Order Comment: Name Collection Type:: Clean-Voided Midstream Performed By: #### U HCG, ADDONUAPLUS #### [address] RBC Auto (Bld) [#/Vol]Ordere d By: Felix Simpson on 07-11-2024 RBC (Bld) [#/Vol] Erythrocytes [#/volume] in Blood by Automated count 3.60-5.00 [facility] Serum globulin measurement b y calculation (mass/volume)Ordered By: Felix Simpson on 07-11-2024 Globulin (S) [Mass/Vol] 3.0 g/dL Normal [facility] Comment on above: Performed By: #### H EPATIC, LIPASE, BMP, CBC #### [facility] [address] [place] [address] Serum or plasma albumin/glob ulin mass ratioOrdered By: Felix Simpson on 07-11-2024 Albumin/Globulin [Mass ratio] 1.5 {ratio} Normal [facility] Comment on above: Performed By: #### H EPATIC, LIPASE, BMP, CBC #### [address] Albumin/Globulin [Mass ratio] Serum or plasma albumin/globulin mass ratio [facility] Serum or plasma anion gap de terminationOrdered By: Felix Simpson on 07-11-2024 Anion gap [Moles/Vol] 9.5 mmol/L Normal 6.0-15.[address] [facility] Comment on above: Performed By: #### H EPATIC LIPASE, BMP, CBC #### [facility] [address] Anion gap [Moles/Vol] Serum or plasma an ion gap determination 6.0-15.0 [facility] Serum or plasma non-glucuron idated bilirubin measurement (mass/volume)Ordered By: Felix Simpson on 07-11-2024 Bilirubin.indirect [Mass/Vol] 0.7 mg/dL [facility] Bilirubin.indirect [Mass/Vol] Serum or plasma non-glucuronidated bilirubin measurement (mass/volume) [facility] Sodium [Moles/volume] in Ser um or PlasmaOrdered By: Felix Simpson on 07-11-2024 Sodium [Moles/Vol] 134 mmol/L Low 136-[address] [facility] Comment on above: Performed By: #### H EPATANIYA LIPASE, BMP, CBC #### [facility] [address] Sodium [Moles/Vol] Sodium [Moles/volume ] in Serum or Plasma Low 136-145 [facility] Specific gravity Test strip (U) [Rel density]Ordered By: Felix Simpson on 07-11-2024 Specific gravity (U) [Rel density] 1.032 High 1.001-1.030 [facility] Specific gravity (U) [Rel density] Specific gravity of Urine by Test strip High 1.001-1.030 [facility] Urea nitrogen [Mass/volume] in Serum or PlasmaOrdered By: Felix Simpson on 07-11-2024 Urea nitrogen [Mass/Vol] 17 mg/dL Normal 04-14 [facility] Comment on above: Performed By: #### H EPATANIYA LIPASE, BMP, CBC #### [facility] [address] [place] [id number] [place] Urea nitrogen [Mass/Vol] Urea nitrogen [Mass/volume] in Serum or Plasma 04-14 [facility] Urine appearanceOrdered By: Felix Simpson on 07-11-2024 Appearance (U) Cloudy Critically abnormal Clear [facility] Comment on above: Order Comment: Name Collection Type:: Clean-Voided Midstream Performed By: #### U HCG, ADDONUAPLUS #### [facility] [address] Urobilinogen Test strip (U) [Mass/Vol]Ordered By: Felix Simpson on 07-11-2024 Urobilinogen (U) [Mass/Vol] Normal mg/dL Normal [facility] Urobilinogen (U) [Mass/Vol] Urobilinogen [Mass/volume] in Urine by Test strip Normal [facility] WBC Auto (Bld) [#/Vol]Ordere d By: Felix Simpson on 07-11-2024 WBC (Bld) [#/Vol] Leukocytes [#/volume ] in Blood by Automated count 3.8-11.6 [facility] pH Test strip (U)Ordered By: Felix Simpson on 07-11-2024 pH (U) pH of Urine by Test strip 5.0-9.0 [facility] pH of Urine by Test stripOrd ered By: Felix Simpson on 07-11-2024 pH (U) 6.0 [pH] Normal 5.0-9.0 [facility] Comment on above: Order Comment: Name Collection Type:: Clean-Voided Midstream Performed By: #### U HCG, ADDONUAPLUS #### [facility] [address] Automated erythrocytes count in urine sediment (number/area)Ordered By: Elias Rogers on 01-15-2024 RBC Auto (Urine sed) [#/Area] 0-1 [HPF] 0-4 [facility] Automated leukocytes count i n urine sediment (number/area)Ordered By: Elias Rogers on 01-15-2024 WBC Auto (Urine sed) [#/Area] 10-19 [HPF] 0-4 [facility] Bilirubin Test strip Ql (U)O rdered By: Elias Rogers on 01-15-2024 Bilirubin Ql (U) Negative Negative [facility] Color Auto (U)Ordered By: Cali Rogers on 01-15-2024 Color (U) Yellow Yellow [facility] HCG ( test) IA.rapi d Ql (U)Ordered By: ALEX AZUL on 01-15-2024 HCG ( test) Ql (U) Negative [facility] Ketones Auto test strip (U) [Mass/Vol]Ordered By: Elias Rogers on 01-15-2024 Ketones (U) [Mass/Vol] Trace Negative [facility] - UrinalysisOrder ed By: Elias Rogers on 01-15-2024 Hyaline casts LM Ql (Urine sed) 0-1 [LPF] 0-8 [facility] Nitrite Test strip Ql (U)Ord ered By: Elias Rogers on 01-15-2024 Nitrite Ql (U) Negative Negative [facility] Protein Auto test strip (U) [Mass/Vol]Ordered By: Elias Rogers on 01-15-2024 Protein (U) [Mass/Vol] Negative Negative [facility] Specific gravity Auto test s trip (U) [Rel density]Ordered By: Elias Rogers on 01-15-2024 Specific gravity (U) [Rel density] 1.028 1.001-1.030 [facility] Squamous epithelial cells de tection in urine sediment by light microscopyOrdered By: Elias Rogers on 01-15-2024 Epithelial cells.squamous LM Ql (Urine sed) 5-9 [HPF] 0-2 [facility] Urine bacteria detection by automated methodOrdered By: Elias Rgoers on 01-15-2024 Bacteria Auto Ql (U) 1+ None Seen [facility] Urine clarity by refractomet ry automatedOrdered By: Elias Rogers on 01-15-2024 Clarity Refractometry automated (U) Clear Clear [facility] Urine glucose measurement by automated test strip (mass/volume)Ordered By: Elias Rogers on 01-15-2024 Glucose Auto test strip (U) [Mass/Vol] Normal mg/dL Normal [facility] Urine hemoglobin detection b y automated test stripOrdered By: Elias Rogers on 01-15-2024 Hemoglobin Auto test strip Ql (U) Negative Negative [facility] Urine leukocyte esterase det ection by automated test stripOrdered By: Elias Rogers on 01-15-2024 Leukocyte esterase Auto test strip Ql (U) 2+ Negative [facility] Urobilinogen Auto test strip (U) [Mass/Vol]Ordered By: Elias Rogers on 01-15-2024 Urobilinogen (U) [Mass/Vol] Normal mg/dL Normal [facility] pH Auto test strip (U)Ordere d By: Elias Rogers on 01-15-2024 pH (U) 6.0 [pH] 5.0-9.0 [facility] Automated erythrocytes count in urine sediment (number/area)Ordered By: Cecilio Brody on 10-14-2023 RBC Auto (Urine sed) [#/Area] 10-19 [HPF] 0-4 [facility] Automated leukocytes count i n urine sediment (number/area)Ordered By: Cecilio Brody on 10-14-2023 WBC Auto (Urine sed) [#/Area] 5-9 [HPF] 0-4 [facility] Bilirubin Test strip Ql (U)O rdered By: Cecilio Brody on 10-14-2023 Bilirubin Ql (U) Negative Negative [facility] Color Auto (U)Ordered By: Alexandra Brody on 10-14-2023 Color (U) Yellow Yellow [facility] HCG ( test) IA.rapi d Ql (U)Ordered By: Cecilio Brody on 10-14-2023 HCG ( test) Ql (U) Negative [facility] Ketones Auto test strip (U) [Mass/Vol]Ordered By: Cecilio Brody on 10-14-2023 Ketones (U) [Mass/Vol] Negative Negative [facility] Laboratory - UrinalysisOrder ed By: Cecilio Brody on 10-14-2023 Hyaline casts LM Ql (Urine sed) 0-8 [LPF] 0-8 [facility] Nitrite Test strip Ql (U)Ord ered By: Cecilio Brody on 10-14-2023 Nitrite Ql (U) Negative Negative [facility] Protein Auto test strip (U) [Mass/Vol]Ordered By: Cecilio Brody on 10-14-2023 Protein (U) [Mass/Vol] Negative Negative [facility] Specific gravity Auto test s trip (U) [Rel density]Ordered By: Cecilio Brody on 10-14-2023 Specific gravity (U) [Rel density] 1.022 1.001-1.030 [facility] Squamous epithelial cells de tection in urine sediment by light microscopyOrdered By: Cecilio Brody on 10-14-2023 Epithelial cells.squamous LM Ql (Urine sed) 3-4 [HPF] 0-2 [facility] Trichomonas vaginalis detect ion by wet preparationOrdered By: Cecilio Brody on 10-14-2023 T. vaginalis Wet prep Ql (Unsp spec) [facility] Urine bacteria detection by automated methodOrdered By: Cecilio Brody on 10-14-2023 Bacteria Auto Ql (U) None seen None Seen [facility] Urine clarity by refractomet ry automatedOrdered By: Cecilio Brody on 10-14-2023 Clarity Refractometry automated (U) Clear Clear [facility] Urine glucose measurement by automated test strip (mass/volume)Ordered By: Cecilio Brody on 10-14-2023 Glucose Auto test strip (U) [Mass/Vol] Normal mg/dL Normal [facility] Urine hemoglobin detection b y automated test stripOrdered By: Cecilio Brody on 10-14-2023 Hemoglobin Auto test strip Ql (U) Negative Negative [facility] Urine leukocyte esterase det ection by automated test stripOrdered By: Cecilio Brody on 10-14-2023 Leukocyte esterase Auto test strip Ql (U) 2+ Negative [facility] Urobilinogen Auto test strip (U) [Mass/Vol]Ordered By: Cecilio Brody on 10-14-2023 Urobilinogen (U) [Mass/Vol] Normal mg/dL Normal [facility] pH Auto test strip (U)Ordere d By: Cecilio Brody on 10-14-2023 pH (U) 6.0 [pH] 5.0-9.0 [facility] Automated erythrocytes count in urine sediment (number/area)Ordered By: Felix Simpson on 08-26-2023 RBC Auto (Urine sed) [#/Area] 3-4 [HPF] 0-4 [facility] Automated leukocytes count i n urine sediment (number/area)Ordered By: Felix Simpson on 08-26-2023 WBC Auto (Urine sed) [#/Area] 5-9 [HPF] 0-4 [facility] Bacteria identified Aer cx N om (Genital specimen)Ordered By: Felix Simpson on 08-26-2023 Genital Culture Gardnerella vaginalis [facility] Bilirubin Test strip Ql (U)O rdered By: Felix Simpson on 08-26-2023 Bilirubin Ql (U) Negative Negative [facility] Color Auto (U)Ordered By: Drew Simpson on 08-26-2023 Color (U) Yellow Yellow [facility] Fungal cultureOrdered By: Drew Simpson on 08-26-2023 Fungus identified Cx Nom (Unsp spec) [facility] HCG ( test) IA.rapi d Ql (U)Ordered By: Felix Simpson on 08-26-2023 HCG ( test) Ql (U) Negative [facility] Ketones Auto test strip (U) [Mass/Vol]Ordered By: Felix Simpson on 08-26-2023 Ketones (U) [Mass/Vol] Negative Negative [facility] - Microbiology an d Antimicrobial susceptibilityOrdered By: Felix Simpson on 08-26-2023 C. trachomatis DNA LEV+probe Ql (Unsp spec) Negative Negative [facility] N. gonorrhoeae DNA LEV+probe Ql (Unsp spec) Negative Negative [facility] Comment on above: Performed at: = - [address] [id number] Director: Mavis Sow MD, Phone: [phone] Laboratory - UrinalysisOrder ed By: Felix Simpson on 08-26-2023 Hyaline casts LM Ql (Urine sed) 0-8 [LPF] 0-8 [facility] Nitrite Test strip Ql (U)Ord ered By: Felix Simpson on 08-26-2023 Nitrite Ql (U) Negative Negative [facility] Protein Auto test strip (U) [Mass/Vol]Ordered By: Felix Simpson on 08-26-2023 Protein (U) [Mass/Vol] Negative Negative [facility] Specific gravity Auto test s trip (U) [Rel density]Ordered By: Felix Simpson on 08-26-2023 Specific gravity (U) [Rel density] 1.020 1.001-1.030 [facility] Squamous epithelial cells de tection in urine sediment by light microscopyOrdered By: Felix Simpson on 08-26-2023 Epithelial cells.squamous LM Ql (Urine sed) 3-4 [HPF] 0-2 [facility] Trichomonas vaginalis detect ion by wet preparationOrdered By: Felix Simpson on 08-26-2023 T. vaginalis Wet prep Ql (Unsp spec) [facility] Urine bacteria detection by automated methodOrdered By: Felix Simpson on 08-26-2023 Bacteria Auto Ql (U) None seen None Seen [facility] Urine clarity by refractomet ry automatedOrdered By: Felix Simpson on 08-26-2023 Clarity Refractometry automated (U) Clear Clear [facility] Urine culture routineOrdered By: Felix Simpson on 08-26-2023 Bacteria identified Cx Nom (U) [address] [facility] Urine glucose measurement by automated test strip (mass/volume)Ordered By: Felix Simpson on 08-26-2023 Glucose Auto test strip (U) [Mass/Vol] Normal mg/dL Normal [facility] Urine hemoglobin detection b y automated test stripOrdered By: Felix Simpson on 08-26-2023 Hemoglobin Auto test strip Ql (U) 2+ Negative [facility] Urine leukocyte esterase det ection by automated test stripOrdered By: Felix Simpson on 08-26-2023 Leukocyte esterase Auto test strip Ql (U) 1+ Negative [facility] Urobilinogen Auto test strip (U) [Mass/Vol]Ordered By: Felix Simpson on 08-26-2023 Urobilinogen (U) [Mass/Vol] Normal mg/dL Normal [facility] pH Auto test strip (U)Ordere d By: Felix Simpson on 08-26-2023 pH (U) 5.5 [pH] 5.0-9.0 [facility] Automated erythrocytes count in urine sediment (number/area)Ordered By: Aura Brown on 12-20-2022 RBC Auto (Urine sed) [#/Area] 5-9 [HPF] 0-4 [facility] Automated leukocytes count i n urine sediment (number/area)Ordered By: Aura Brown on 12-20-2022 WBC Auto (Urine sed) [#/Area] 50-100 [HPF] 0-4 [facility] Bilirubin Test strip Ql (U)O rdered By: Aura Brown on 12-20-2022 Bilirubin Ql (U) Negative Negative [facility] Color Auto (U)Ordered By: Valdez Brown on 12-20-2022 Color (U) Yellow Yellow [facility] Fungal cultureOrdered By: Valdez Brown on 12-20-2022 Fungus identified Cx Nom (Unsp spec) [facility] HCG ( test) IA.rapi d Ql (U)Ordered By: Aura Brown on 12-20-2022 HCG ( test) Ql (U) Positive [facility] Ketones Auto test strip (U) [Mass/Vol]Ordered By: Aura Brown on 12-20-2022 Ketones (U) [Mass/Vol] Negative Negative [facility] Laboratory - UrinalysisOrder ed By: Aura Brown on 12-20-2022 Hyaline casts LM Ql (Urine sed) 0-8 [LPF] 0-8 [facility] Nitrite Test strip Ql (U)Ord ered By: Aura Brown on 12-20-2022 Nitrite Ql (U) Positive Negative [facility] Protein Auto test strip (U) [Mass/Vol]Ordered By: Aura Brown on 12-20-2022 Protein (U) [Mass/Vol] Negative Negative [facility] Specific gravity Auto test s trip (U) [Rel density]Ordered By: Aura Brown on 12-20-2022 Specific gravity (U) [Rel density] 1.019 1.001-1.030 [facility] Squamous epithelial cells de tection in urine sediment by light microscopyOrdered By: Aura Brown on 12-20-2022 Epithelial cells.squamous LM Ql (Urine sed) 5-9 [HPF] 0-2 [facility] Trichomonas vaginalis detect ion by wet preparationOrdered By: Aura Brown on 12-20-2022 T. vaginalis Wet prep Ql (Unsp spec) [facility] Urine bacteria detection by automated methodOrdered By: Aura Brown on 12-20-2022 Bacteria Auto Ql (U) 2+ None Seen [facility] Urine clarity by refractomet ry automatedOrdered By: Aura Brown on 12-20-2022 Clarity Refractometry automated (U) Cloudy Clear [facility] Urine glucose measurement by automated test strip (mass/volume)Ordered By: Aura Brown on 12-20-2022 Glucose Auto test strip (U) [Mass/Vol] Normal mg/dL Normal [facility] Urine hemoglobin detection b y automated test stripOrdered By: Aura Brown on 12-20-2022 Hemoglobin Auto test strip Ql (U) Negative Negative [facility] Urine leukocyte esterase det ection by automated test stripOrdered By: Aura Brown on 12-20-2022 Leukocyte esterase Auto test strip Ql (U) 4+ Negative [facility] Urobilinogen Auto test strip (U) [Mass/Vol]Ordered By: Aura Brown on 12-20-2022 Urobilinogen (U) [Mass/Vol] Normal mg/dL Normal [facility] pH Auto test strip (U)Ordere d By: Aura Brown on 12-20-2022 pH (U) 5.5 [pH] 5.0-9.0 [facility] Automated erythrocytes count in urine sediment (number/area)Ordered By: Lilliam Linares on 08-22-2022 RBC Auto (Urine sed) [#/Area] 3-4 [HPF] 0-4 [facility] Automated leukocytes count i n urine sediment (number/area)Ordered By: Lilliam Linares on 08-22-2022 WBC Auto (Urine sed) [#/Area] 20-49 [HPF] 0-4 [facility] Bilirubin Test strip Ql (U)O rdered By: Lilliam Linares on 08-22-2022 Bilirubin Ql (U) Negative Negative [facility] Casts typing in urine sedime nt by light microscopyOrdered By: Lilliam Linares on 08-22-2022 Casts LM Nom (Urine sed) None seen [LPF] None S een [facility] Color Auto (U)Ordered By: Yadi Linares on 08-22-2022 Color (U) Yellow Yellow [facility] HCG ( test) IA.rapi d Ql (U)Ordered By: Lilliam Linares on 08-22-2022 HCG ( test) Ql (U) Negative [facility] Ketones Auto test strip (U) [Mass/Vol]Ordered By: Lilliam Linares on 08-22-2022 Ketones (U) [Mass/Vol] Trace Negative Fi [facility] Laboratory - UrinalysisOrder ed By: Lilliam Linares on 08-22-2022 Hyaline casts LM Ql (Urine sed) 0-8 [LPF] 0-8 [facility] Nitrite Test strip Ql (U)Ord ered By: Lilliam Linares on 08-22-2022 Nitrite Ql (U) Negative Negative [facility] Protein Auto test strip (U) [Mass/Vol]Ordered By: Lilliam Linares on 08-22-2022 Protein (U) [Mass/Vol] Negative Negative [facility] Specific gravity Auto test s trip (U) [Rel density]Ordered By: Lilliam Linares on 08-22-2022 Specific gravity (U) [Rel density] 1.019 1.001-1.030 [facility] Squamous epithelial cells de tection in urine sediment by light microscopyOrdered By: Lilliam Linares on 08-22-2022 Epithelial cells.squamous LM Ql (Urine sed) 5-9 [HPF] 0-2 [facility] Trichomonas vaginalis detect ion in urine sediment by light microscopyOrdered By: Lilliam Linares on 08-22-2022 T. vaginalis LM Ql (Urine sed) 0-1 [HPF] None Seen [facility] Urine bacteria detection by automated methodOrdered By: Lliliam Linares on 08-22-2022 Bacteria Auto Ql (U) None seen None Seen [facility] Urine clarity by refractomet ry automatedOrdered By: Lilliam Linares on 08-22-2022 Clarity Refractometry automated (U) Clear Clear [facility] Urine glucose measurement by automated test strip (mass/volume)Ordered By: Lilliam Linares on 08-22-2022 Glucose Auto test strip (U) [Mass/Vol] Normal mg/dL Normal [facility] Urine hemoglobin detection b y automated test stripOrdered By: Lilliam Linares on 08-22-2022 Hemoglobin Auto test strip Ql (U) Negative Negative [facility] Urine leukocyte esterase det ection by automated test stripOrdered By: Lilliam Linares on 08-22-2022 Leukocyte esterase Auto test strip Ql (U) 4+ Negative [facility] Urine sediment renal epithel ial cell count by microscopy (number/high power field)Ordered By: Lilliam Linares on 08-22-2022 Epithelial cells.renal LM.HPF (Urine sed) [#/Area] None seen [HPF] 0-1 [facility] Urobilinogen Auto test strip (U) [Mass/Vol]Ordered By: Lilliam Linares on 08-22-2022 Urobilinogen (U) [Mass/Vol] Normal mg/dL Normal [facility] pH Auto test strip (U)Ordere d By: Lilliam Linares on 08-22-2022 pH (U) 6.0 [pH] 5.0-9.0 [facility] XR KNEE LT 4V or >on [...] by: Yared JOYNER Date: 2022-06-07 02:52 Normal [facility] Coding Summaryon 08-29-2021 Coding Summary HTMLBase 64 QbugfhwqBLr8zRq+PGhlYW Q+XC4NREDvR15slCErjT4T V2kMQL4YVNTXVUNOJZ9RRN 9xbLI2LWecN0PrnfRl TjuszQDcDR41JTw9RHA1kJ ptRZwuoE6xfHJwG6r0KiPb VN85rK32XTayDTYjWtD8Wq ZpbjsgbWFy H7trKhPkfQApTrj+PHRhYm xlIHdpZHRoPScxMDAlJyBz bQanAM5eNr1mXWEvOCFxcK xhcHNlOiBj t0vcAEYcIAmuUW3upThyC2 JuyTB9UYLqo6u2Wd14oPK+ WUDyCHG5hGxcHHqom704At Pwj5rhOQX5 mUQbPCuaUUN5I93rp6F5PK JgFQYrRGP2xYT8aQ5hkXlk lefrG7SeaZKbRpA1MEI1xU LiiS0zmUwk tyzdzY8qIgu+G17IGL5THD DKAH6IHrr0F7PuUxwxsRP+ GO72TGKqYX49eIMvnGQyo2 wvtDf5AnSc CEEeOJM6fZhxPXeyc7PfKN LsH38ykTOqk3H8DHEboQyq kIJsNhPxkDH6wC8lULzckq tqr8awntmu Juinl9foqz01xO42G12gMP rdGTQqUPN4VMSdJZYugLaj hh8hgW8gBf1+SWadx9ucq5 neiCx5WqJo LBZglvBvfQumCWO4g9JpRu 77P2LvkYovo5XdFps2lb72 qUEhe8E1aDB5ANlcEQYloZ 8sIOncLzW3 NBIeSbNinB53oKBzUTdiNz 0zxCrhjOqzOA4vHPSblvjl YKRkzW9fNBWjwEBgtDmtGO 4wNTBpbjtm u887YuUgAEY2TRNgyGJzZ1 NckN4kUmIjUCRbSGQaM2Oc bRRwZAzxT274TOzeDzX9HM BgkyJuA3Oz ECKpmTvjIzI6l4G3Fa1Bw8 KkvdbfJVE7CPjxVHKwEsZ0 IaSjYwF5W2DzRcv1ZTBwxX gpHX6xZ4Nz OXJylrmaypbyqUC1HXCgPK MufF14mNKyPFmjOz2al4D8 p652DRXeKFOdrR41On1hiH ogMTBwdCBU gP3havtru1etzjeeVmUoSD VuNXu0FMu3FXKjnOjtCkAd WWL8DyP1NVC7gWVtwR8vvG kpoyfghF2x Oyc+M14uiU0tBOM9DZT2dp roJVNafeVpAT81UW93R2Tc PjwvdGFibGU+PGRpdiBzdH ezXM5wBdLf z2rri3HxHDtrT7PiDAEpOK dvMjw9PSFyQSN6oSW2kX7c YYPxSGtwx3B9fVX6I2Okde Gkyu5gw5um HDCbOQktI29anFGcq1E4ZF JvxKC7SMFfqQrjNvLjsE93 Oyc+YHYsaEccn2RlEgmio9 ltm4lxkTv2 FsPbEQWgmaKsgZlmBTM3d6 LbHp84P96gORwpQDJjKTZh NIFlXRYboIhero1spT8tFu 8+PGNvbCB3 sUU0vA4mSYCiMaU7HVraD8 72JpTayHRyReprm5ana9bk tCk4PkSkIOFxftGqeMvaLR H7o8HvEj48 S03eEAuaVWRjSZXhITCqLI FmuFgbgh2nrJ5fLd3+PC9j m2jwdo43lP41fDK+PHRkIH O4qSztFUqb BOQjfY2qFEhtUrB2PYOkMy ZvyA68zUCwEClzUh9tnKzm bGjzCG0qTVNcfpgvw917Ic Hhl2qpLNIn jXImTNexNEU0E26wr8A2IG GqOXXuASV2eJP5oN3laFem bjogbGVmdDsgdmVydGljYW luNAceL269 IHRvcDsnPlBhdGllbnQgTm TuITp8L9UfVss0VARwvSnk NX8olZReLEioMu9odJmgwF kyOY8cHNMe vjcvi540ZeYhy1fyDSXnbS PoEDwnDWE0X55mi0F0CGVj YLVrFUS9nOU4mK3mfLxoke ogbGVmdDsg gxIcnTenFVjtBKrfR548GM RvcDsnPkJpcnRoIERhdGU6 JY96BZ74wAYxx1V0zMT1Y9 BhZGRpbmct kbykrGU6KNIeIIBciZ30Zb 6uhUxmUq5rEAVsREM6SVRf iWOsJ8RlmS4dXgUwTEElMB TtG1BpeJRj IVimV484YQxgLgI6RWIlwh VsT3NiYLAdfOujSqF6e7V2 Ek4EJ4H1UZ81PP90uMJbz7 I6jUV6R8Rj MSYpoqhgfxoinLX5CPDfHJ OplB00Ea6joHnsWb6nYYVg ZAR3KTCsuNEiK4UqeB4fFv AjMDAwMDAw V0VufRPiZHliK915HNjqPo K0KTThzlFbN8RdNITnySaw EzQ5u7P9Zr0PMEk5YW75HT 81jFNsq5T4 zQG8X7WoOUVuzndrocrhkG S5KHPzVRKfhO93Jz8wiLno Ql0cSBGdHZB7SVTrrFJnL8 IvmS2gOvDo SRMaVMAgB7FjeGZyUAqcU7 80COuuOxM1JYDgoiYaO9Hl RWAlfRucVhQ5z3M7Ah3BQG ZkCP69VBO4 dJL4UB47CG74N6MxRjgneG FibGU+PHRhYmxlIHdpZHRo KQowYRYbHaPhnZlaHT3oDf 9yZGVyLWNv aZzkpZJwKiAxk8dzMHZhYI frYO5vkPtkS0NacUE7SZLf c3z8Ih20R84fE8JnqSK+PG GukCH6wRP6 nE4jYzJeTtM8LLvcU944Ek ZmqRPfYdpqr0hlh5iebVr2 AkO3VJCjrjVlzJkkNFA0l9 WkGm59E64l IHdpZHRoPSIxNSUiIHZhbG qcfc9noY5dZt0+PGNvbCB3 kGM8qP1xOdFdXxZ0XCynI4 49InRvcCIv Vecxz5qec8sfpNw0RxXwCC CkqzLshNzvMKJ5i7YbDr24 I7OehPcjj4YrYbm1az25bP Psb8X7lGG6 Q7PkNICjsyvpeDUesNnpUV 8nZQLfoxzyIVCqpE4lNFFf T0l2YoOaEmB7IYymL6Vnxb J6ZVJvdZWi YPddCIH4Z50gf2Z0IPJoJW DfFIL5kMA1hZ5wqVnrqroo bGVmdDsgdmVydGljYWwtYW mdS593FJJz iQudHRQjyY3sQDUvvVKeyK edED6bDFWvczeoOovTR4PR KywxVRBLXTYPWDX4M2MwEw d4TMYoaPtn MX8hkXDmYNrvAj0npRsxiU zwVL2rIUGdgtisEKKnrS6o BWCnhIRxbDucVT9yFOGmds hsy878XwEa ZBI3LCWohUXlU5CadV5ySe BnKFVfZIOnW3XirCGtIWmc Y946HKzwMpT2MADrgyNrO4 FsLWFsaWdu UqD9e3K8Rl5tNU4rCo7oDI EmCB24OG75mCRld4X3lCS4 O8SzXSDpknyxwaatpXE3HM KlIMJstF42 mNQnFQfbBw7rk0E8m213XZ IgXDIycI47Kq0jbMtoFGBv mQAOkA9olegdi3ehinvvAy AwMDAwMDt0 RXc9XOJbcYhfBgJwUUV8Nw A2RUI7dPAwiN3mwUcifyqr hM4hGkp+YlSuJGBlwpE3T3 GyAix4VPWa bPusXW6naKZzZQjvUd5ewY bxdDuwLM1kZGVugsvnGSCk pJ8bDOFkmDAzcDnvFF9dLH Smmtphc014 QbUdDEE3AKApuFSpV6PzqL 9kYvSzANTaOQBkI6IobUCp JAliF602WDnnBqP7UTKzoh CeP4OkYBYc rYioWwK3v0J7Ea0BII2YZE I0R4AzKqu8ZRTfpJltSD1g jZKkOMbhAv9ioWmpyEwyLI 4wNTBpbjtw OYQscU1nZHJdrGIebIcfRT 6mGEDugrxdl504GyUmHUA1 JJBxrFOgU4WcuZ3yBuEnLO BrDECpE1Ih zKQaWYslZ007XImzCjW1UK WwaeJoS0SpIZQtiQabIzQ3 z4Q3Qw0WUYvvcLN+PC90cj 49Q3EqDhmq Fpg6XXAgTVW8hVE9nM0sJB IxHIord8X2tWJ2J8XlxdGk tu6pd8xvAYQrTGuvP15xaP Vnl6D4TLRc pAV4PHWirEjxIxMihU81Pz c+CMSsvDqqa8OjLptqi9ay z6cqxDw8EpRwXCEzhdWodE otCUQ7y9Mv Cb16X61uBGxtAHIgUFYsDS SuKNDbiFbiir1lvN2gXh2+ BVUytJW0wDP1eK5tFzFwFp Y4OJymO884 HcLaiVDuTkoph0rie3rjkL a0PhDaYKOoheIykXueKQA1 h4UzRs78F4TvlUhzq5FbAz z0ue46zLBv z4S6zNJ5I9XyQTDaieqanY IcjNtsPC7wYOUupikjHGSo tX6iDSMgR8d8OnFlVbR4IJ pkI1YmpxS6 JODahNAzLBUutWRTjS4uum ijl1oucaxlWdCtFIDzXIm2 MUf7DLSweXxyWbIlCUL8Xv P2PIL0jDMr fE5wsZkyetgudD4dBlb+UG m9w1qpdTGgSB5azGN0CX83 RI59fDPbk9S9zMX0T0SkWB Rpbmctcmln xPL7RLObEKKuxZ49Qt3gyX kyYs6xLLUfRKC8EIEgwLUi V4WkxS5bTpEfVZKsIDAjZ5 RleHQtYWxp P877OPfvKbB6AZJuloXzZ1 FqMSDzqCcdRiI2f4T8Kj0Q DI13PX44BU98cAMlx6D1jT W0S4XwSNPq dnrhvuoejYI9FJUfBHXtcG 13Ib7djKlrAg6tDPRhHWY1 QFYajRUbX3DzlU4nDcHsGC QwGLHiZ0Cg cFQrKSihD232GIyfUpO1FJ OuywBkI9ZrEBGefIitFlZ3 y2G7Gk7RRc48DU10AY49vG Hep0R7sIO4 N0VyGRSaaysxmncgvGJ9LU MzBLHsqA82Qz2ioUruSm7o TDFdWZO0TKMumENdY9FtcC 9yOiAjMDAw PSOaK0LpoJBfWYowZ974UG daDyA2KVYhwjNiB4GdNNZw oXfsSmY9w7F6Rl2QGPpzoz s9V6LbNobv dHI+XL28HVVeQT18wRVjiU Ldq2oblRg2StRpLWElSYP9 iFsvQQaug6HiNXOvB66pjL Qbl3P1RRWp bGx (more content not included)... [facility] Coding Summary HTMLBase 64 MuzovpbcKHi1pNy+PGhlYW Q+ZN4FLUAaK79qcDMbdP6J N5oHJP8BYWFEACEKOZ3GWI 6inRE2XRwmX4HgrnBi EtxwiGRvRU12CBq1BPA6sN enCYbjlS5soWLqW2w0QnVz RQ12nP49GEtrKADbUpG5Rz ZpbjsgbWFy P2zmDeBhyYDqScm+PHRhYm xlIHdpZHRoPScxMDAlJyBz sLyqBZ7jOw5pELIxYAShrC xhcHNlOiBj y9njUUDzFNedSP5weHynT9 GmpHO1TGWxt6m3He65aBD+ BWJdRSM2pAsqZMvtl715Iy Zmk3scVOR2 oNOsLZkcPHU6C23om7K5OY HpJOOjAJM6sOW2eS5syVyn ooeeO9QisKJwYgC9AFF0nK TolT4icZcj ftgdzO8aDqt+U44CWI3KYA UUFH7QDxr1O3HrApbecIL+ NJ90MBMcIA80uCNctNUrg3 vkkPl5OuSw RIZlIRN7aEazPTwjv3OqTS YtG02mkMXdt1V4OQSoiRwj dADqTtJtwOM6yL0wRDxrwn lbe2xdegda Vcuot8joym49gJ66T72oTF prZYZyKBT2WOYyERIgaIxf jm5stF3rSu4+HWbpb4exq7 ivgHm5ElOj BDPkzjApjKueTII4t2QsHs 35F4SlmZkzk6PuUov1jz39 nSQpm9O5tME6ADxlUHSbiR 9pQIdbUxJ8 KEVuYrHngC76hYJqTQpsWf 6ydLaclDmlFC4nMZIstpow FUChjY5bPWUswAVngArnCJ 4wNTBpbjtm y428SwWcJHG4OLRxsVIeJ8 KsfR7sAqNlDMYeBJXwY5Lp yELuNHzgH311QCcbZqG6YX IiycEiE4Ju WESqiElrBlT0v5I7Bh8Mz1 UllyjrIWD2MMmuLUGqBfC2 GmLpWdS0N7PgDit4LQWsxC ifNL3wN7Pc OXBzhngdizmvwMF6MDOpNH YvdI37sMLyINoiQl8lp2I3 g721NBNfDUJiiJ64Ml3zmN ogMTBwdCBU pI8knhytb8nbqbziHwKqPT QgDEs6HPp3TALzsFtlCsAo PWU2DxS8KSI2lUWmkI4hmJ hulrmxqI5p Oyc+G76jpD1eMHP6FGV4xe hcKRGzjcOeIW65YG00N4Bf PjwvdGFibGU+PGRpdiBzdH awDO4zRrZq b7dpd5BgZCesE8NxBCAsOQ agShk1DSWzENQ8iSQ1mG3i PCKnWVecp4R4iMR8V3Psdk Dsid8pf3wj AEImYSorE05ukZFgn7L6LM JzdOR7RIDngWekLcMxzP12 Oyc+PUCqtQzef0ZkNuaft6 hag6wfuCv6 OcWhZCZggbPvgTyoIKF5l9 ZnDr83K80cHGvkYKJoFSGb QDVaHVUzjKgedo3ibN1hIt 8+PGNvbCB3 vLT9sS2aIBBgMvN9YKieI7 86WqJvvPMdCzagi7fhw5be yDw5LyYqMBPmwoXgvMncUJ H4c3ZaDj27 Y47wUNzyTMLwZRRfURNsRF KfvDfoxx9fnJ6qDw3+PC9j t3qcjb21bA57pXS+PHRkIH P5wFjdDKgy XUJaeR1gCLxrEeQ3EIDmOu QpxE28yTQrDOliFb1yiAuh kSmfSI0zIMSrgmqyd396Li Stm5cjCTJd kRQfBKcwAWX2I93jy5M0KO EdRDSeIAV2eFH0fB4imIwk bjogbGVmdDsgdmVydGljYW zyBJewY665 IHRvcDsnPlBhdGllbnQgTm VrZDa5D1IbWgr7MCZimEuu MS0esUDoWZtrBz3ksYiyoN syZS6zSFEi zjdtu519OnFrl4ltRKKclN MfXJkcKOV4K88em1B7SUIu AJLtBQG7iMR8mM6tkDdowb ogbGVmdDsg hpYlvMflQFvlCIogJ875JX RvcDsnPkJpcnRoIERhdGU6 KR97VA53jXSxa7D7jSQ5X1 BhZGRpbmct yzrveVM1GBPbYUQqfB66Pm 8uvKonUa0oHQRjRSE3NNGp hLYmP6CiiO0tOaAkOPJvXS UrM2UxiPSh WXmrD526JOdaRpS9SWMjai BvA9LsPRGwpOpiRxQ1i4M3 Ph7TL7W8TF29QZ57vAEfw7 Y6sAL1J8Qh CJXyxytrhczaqLI5LIFlMS FupP14Co0lpNpwSz5pXZUr KJC0YTNdeLDiT1HcsJ0cMi AjMDAwMDAw K1OjqNNpRRdoU793HXswHo H3HLNxjxJnG7PcSGXavXik RlW4a5Q6Ae7FXYz1II24UI 75vQQap8W9 fQT7H6OiGNZslbnidvacxX H2NGJmIXZolP38Tu4ljDrq We9kWNNaALL0MERksLTiL3 UdnC1dBmVy FNGgSNNdU7AyqSSsXRjbK7 26CFdcEaH1PQGkllLdD8Gd HSSonDabVlI3y0D7Lf2XGB OuCU89ZDH2 kKL0VR38CP40J0UhLnvwpJ FibGU+PHRhYmxlIHdpZHRo WRvbFUHnUgDvxDuqQJ1yTw 9yZGVyLWNv hFhdlQWvSdHeo0dwZPYuIG zkRF7vhFlnH4QrpFN6KRBp o8z1Ug55K75cM2VfeGH+PG DxvLT5tQX9 bX4jSlQaObK0DSepH813Rp PctCDqNssrq8ypr9rtfGu8 ZlX9LIFxasHajCfgVNL2m2 ZvXd36I87a IHdpZHRoPSIxNSUiIHZhbG waqs5luT6aPf6+PGNvbCB3 gFU6uJ5qMnMrJvT0TTlpE9 49InRvcCIv Kjwmg5vad6vzrQp9MePvXT NphcIxfIitLGC8n3LnDa16 R8EhiUudt1SdPjf8je22dA Nvx9O6vCP5 T9KdSCWmqyruyXGpxFcqRE 2qHVOdkwfcPRJbbW1gGYAj J8g5BoPmGrH0UVheC1Uszy H6XHUqiKEl GQwhODV6W42wq2D8NYDnGW TqYYI5wCZ7kF7ffCouafha bGVmdDsgdmVydGljYWwtYW heY686URCl gSsmBDRzfQ3sZLJvzDIkxT frIB2yVGBydgfwExnHJ1XG QvvcSPGWFQBNQEG8F2LpHx f8PINnqBwi BA4srAPlDWctBw4zeWynaV hyVB6pNYKtmfduJUHdxA3l QNEvpOWlvXeyBD1vFYVrlz oid721GvUz OGJ4ETUovLDkB2PppB6eOn VfFZIrFVErR8XfuRHcUJpi I591NNurXiA7VCRvwjLrU2 FsLWFsaWdu AoB6n9I7Sb3tMT7fLh9pWB LoSW61BM98lEHcy6P5zWM9 D3QaTSXpovcdoozggGI0WV NzIGPthA66 kYFrDCjvMx1dr4Q5g787OY MhTNIonE88Qx1yyJmmIXMi lAPNxM9erkhjg9xwjbvpZf AwMDAwMDt0 PFb5JJJxrIpgIoPsQRI1Js U7UIG3oGXunQ7kuOfaecxy wI8tJyx+VrRyTTXtriJ7E4 GoMwq9ORIq kXbjGG4tbGIiBKlqJp2wbI cpeNohJF5dKPExkvsvMXFp mD4iZTUvlDJdgXwxVP3qCO Oxjaalc933 EjNaJAS2XXDoeJIoU3ZxaT 3dYjWvVAKjBTYgH8ZqoHJd LAbuX376TOkrTaV3BRMfki ZcO3GrYVOa nWwzYsV4y2T8Kl1PRN9FQZ P8F4FfEnx2FESngPjcBW8t jLOpDBktNw3qjPflbKqyII 4wNTBpbjtw HNAabL5mWPHjjOVmoQsdUN 5jBYVwgjfrw883FkFmVVE4 NYJkcGMxB0QtwB3vPeTaBH ImXNHkD4Tm sECaFQmeQ103BOolBnM4GE CmisOsZ6HmIJXetKurOiP8 q5K6Lw6EoWYgJ6QkD3u2K6 RkPjwvdHI+ IF50OXXiOU78lKTmkNZkm0 keuHz9ToNqCCEsDLJ9jKaw HPeol5WtWNAdR30juLIcn7 N0KNQusPtm cKCwHyMhcJR9sF7eWJlsvm bcf6iixwcyTwscp4gmca79 oL62K22nJIjjXYJiVEJkGT UiIHZhbGln cy9hiU5hJi0+BRUxmAW5qP S8aD6bGuHtMpL1LArsM482 YyApkJHqQtjit1use1rwnJ u4TtKpOWTs teXrgNxoCBG5r7UgPa39M5 9sIHdpZHRoPSIyMCUiIHZh hFlfnc0ryL3dLp0+PC9jb2 hchh89bT83 dHI+IHVhJIF7qUqeUAjpVY TrcW7wCJbtEaD1QJRzIiJs lP81tAMkBEjzXx0rpHwcaI znDT2tFJHf llpko495WdFlr8jqSAEjkP QcLZzfTVW1M91fn4Z3PLRt SQAsPZE1pOC8uL3smZyomc ogbGVmdDsg hbCxiQzpLPivAPkxC613BM AgnAgmSaKkgJApQ8fxhrOZ PU2kPpmeoOW+ZQCgUUL1dE xlPSdwYWRk mD2oFAYhG5c1AeMzZrO0FO zwW3LhjfE4BYNcoHOcYJHx vYNGbM6whaajt3ttijgaMj AwMDAwMDt0 VKu1PJCyuPclAaVeSJW1Cu U9KRX5uACqjJ2hqHobslyv uA4qVqe+RklOOjwvdGQ+PH IlCTE6cEns NNaxLTFczG3hKTSgM9t0Ja DsDrN2NCkoD9EtxjL0ZBPw mLKaYKTrdIARvR4orpifg0 xvcjogIzAw GPEnNEy2MHb8GRJyrGluJo CpUCN7DnI2DUA6nFXifP3v uItziicvwT6uJwe+TVJOOj wvdGQ+PHRk UFY2aHzqLFeoMFUfsI1zLO UyM1x6UkPoDhD7GYjhE6Oy qhD8FJObdQFfIRZleUUGyJ 8winbgp5nh eztjLhBdRBWdGQy4UZm9OP VmuBmhYyEcEIY6AjH6BIG0 oDFvvA0oxVzqrrwsdA1iYm c+WZJ4ZVM3 GL99RM09G6IhBdfkjSEzlS U+PHRhYmxlIHdpZHRoPScx LYExAnXseNxbBJ8sHn0fXU VyLWNvbGxh cHN (more content not included)... [facility] ED Note-Nursingon 08-27-2021 ED Note-Nursing Pt called and spoke with Von BOYCE. Pt stated her dog ate her prescription. Script for Flagyl 500 mg 1 tab BID x7 days called into [facility] pharmacy per pt request. [facility] Chlamydia/GC Amplification L Con 08-21-2021 Chlamydia trachomatis, LEV LC Positive Abnormal Negative [facility] Comment on above: Performed By: #### 1 [id number] ####[facility] (DEFAULT)[address] [place] [address] Neisseria gonorrhoeae, LEV LC Negative Invalid Interpretation Code Negative [facility] Comment on above: Result Comment: Perf ormed At: =[facility] [id number] Magi Mcintyre MD Ph:[phone] Performed By: #### 1 [id number] ####[facility] (DEFAULT)[address] [place] [address] ED Note - Otheron 08-21-2021 ED Note - Other [id number]#1.0 0OTGTIFF [facility] ED Note - Other Pt positive for chlamydia. Dr. Olivares notified. He faxed Rx doxycycline to [facility] pharmacy, [address] Pt notified of results. Instructed to notify any sexual partners and to follow up with OB-TAPE SEWING MACHINE OPERATOR MD. She verbalizes understanding. [Electronically Signed on: 08/21/2021 13:27 EST] Bright HERRERA Janell [Verified on: 08/21/2021 13:27 EST] Bright HERRERAArnave [facility] ED Note - Physicianon 2020 [...] by state law will be forwarded to [facility] health department. [Electronically Signed on: 08/21/2021 10:46 EST] Joel Olivares MD [Verified on: 08/21/2021 10:46 EST] Joel Olivares MD [facility] C Urineon 08-19-2021 C Urine Urine Culture ordere d as a result of parameters set on specific urine dip and urine microsopic results. No growth at 2 days. [facility] Comment on above: Performed By: #### 5 [id number], [id number], [id number], [id number] ####[facility] (DEFAULT)[address] [place] [address] C Genitalon 08-18-2021 C Genital Normal vaginal migue isolated No growth of GC at 3 days. Corrected Results Below Gram Negative Diplococci not seen. 3+ Gram Positive Rods 1+ Gram Positive Cocci Rare Gram Negative Rods Normal [facility] Comment on above: Performed By: #### 2 [id number] ####[facility] (DEFAULT)[address] [place] [address] ED Clinical Summaryon 2020 ED Clinical Summary [facility] - Emergency Department [address] [place] [address] ED Clinical Summary PERSON INFORMATION Name: BEATRIS MACK Age: 21 Years Sex: FEMALE : 2000 MRN: Acct#: Visit Reason: Vaginal discharge; VAGINAL DISCHARGE/ITCHING Arrival: 08/17/2021 13:36:40 Discharge: 08/17/2021 16:11:00 LOS: 000 02:35 Check In: 08/17/2021 13:36:40 Checkout:08/17/2021 16:11:00 Address: [facility] [address] PCP: Provider, None PROVIDER INFORMATION Provider Role [...] chills. No recent sick contacts or travel. GEODETIC TECHNICIAN is Dr. Saab. No known medication allergies. [...] lesions, Normal (more content not included)... Normal [facility] ED Note - Physicianon 2020 ED [...] chills. No recent sick contacts or travel. GEODETIC TECHNICIAN is Dr. Saab. No known medication allergies. [...] Nurse colle (more content not included)... Normal [facility] ED Note-Nursingon 08-17-2021 ED Note-Nursing Patient [...] well. Pt denies any other issues. Normal [facility] ED Patient Summaryon 021 ED Patient Summary [facility] - Emergency Department [address] [place] [address] PATIENT DISCHARGE INSTRUCTIONS Patient Information Name: BEATRIS MACK Age: 21 Years Date of : 2000 Reason For Visit: Vaginal discharge; VAGINAL DISCHARGE/ITCHING Arrival Time: 08/17/2021 13:36:40 Primary Care Physician: Provider, None Attending Physician: Silver Levi MD Comment: Visit Diagnosis: Diagnoses This Visit Trichomonas vaginalis (TV) infection (A59.01) Vaginal discharge ([id number]) Prescription Information: If you have been given a prescription for narcotics, seek immediate medical attention if you have any difficulty breathing or any sudden status changes such as confusion and sleepiness. If you or anyone you know is experiencing suicidal thoughts, mental health, alcohol and/or drug addiction problems; contact the [facility] 13/04 Crisis Hotline -Text 4HLSE to 148233. If you received any narcotics, sedation, or [...] 5 days Comments: Please follow-up with your GEODETIC TECHNICIAN in 3 to 5 days. Contact their [...] and treatment you received today in the [facility] Emergency Department were for an urgent problem and are not intended as complete care. It is important for you to follow up with a doctor, nurse practitioner, or physician?s assistant community director for ongoing care. If your symptoms become [...] so we can reach you if necessary. [facility] Emergency Department has provided you with a complete list of medications post discharge. Please inform your all source intelligence analyst/provider of your visit and for further instruction on these medications. Any specific questions regarding your chronic medications and dosages should be discussed with your primary care physician(s) and/or pharmacist. New Medications [id number], [address] [place], [place] [id number], [phone] metroNIDAZOLE (Flagyl 500 mg oral tablet) 1 [...] also be involved (more content not included)... [facility] Test Urine 1on U Preg Negative [facility] Comment on above: Performed By: #### 5 [id number], [id number], [id number], [id number] ####[facility] (DEFAULT)[address] [place] [address] U Preg Internal Control Pass [facility] Comment on above: Performed By: #### 5 [id number], [id number], [id number], [id number] ####[facility] (DEFAULT)[address] [place] [address] UA Sculw2zg 08-17-2021 UA Bacteria Trace [facility] Comment on above: Order Comment: Urina lysis Microscopic order added on by Trusted Insight Expert Rules system. Performed By: #### 5 [id number], [id number], [id number], [id number] ####[facility] (DEFAULT)[address] [place] [address] UA Mucous 2+ [facility] Comment on above: Order Comment: Urina lysis Microscopic order added on by Trusted [employer]ight Expert Rules system. Performed By: #### 5 [id number], [id number], [id number], [id number] ####[facility] (DEFAULT)[address] [place] [address] UA RBC 3-5 [facility] Comment on above: Order Comment: Urina lysis Microscopic order added on by [employer]ed [employer] Expert Rules system. Performed By: #### 5 [id number], [id number], [id number], [id number] ####[facility] (DEFAULT)[address] [place] [address] UA Squam Epi Few [facility] Comment on above: Order Comment: Urina lysis Microscopic order added on by Discern Expert Rules system. Performed By: #### 5 [id number], [id number], [id number], [id number] ####[facility] (DEFAULT)[address] [place] [address] UA Trichomonas Few [facility] Comment on above: Order Comment: Urina lysis Microscopic order added on by Discern Expert Rules system. Performed By: #### 5 [id number], [id number], [id number], [id number] ####[facility] (DEFAULT)[address] [place] [address] UA WBC 25-30 [facility] Comment on above: Order Comment: Urina lysis Microscopic order added on by Discern Expert Rules system. Performed By: #### 5 [id number], [id number], [id number], [id number] ####[facility] (DEFAULT)[address] [place] [address] UA w Culture if Ind Standard on 08-17-2021 Breakpoint UA [facility] Comment on above: Performed By: #### 5 [id number], [id number], [id number], 9322061 ####[facility] (DEFAULT)[address] [place] [address] Color (U) Yellow [facility] Comment on above: Performed By: #### 5 [id number], [id number], [id number], [id number] ####[facility] (DEFAULT)[address] [place] [address] Culture? Indicated Invalid Interpretation Code [facility] Comment on above: Result Comment: Resu lt created by rule GL_MAGR_ADD_UA_CULT Result created by rule GL_MAGR_ADD_UA_CULT Result created by rule GL_MAGR_ADD_UA_CULT1 Performed By: #### 5 [id number], [id number], [id number], [id number] ####[facility] (DEFAULT)[address] [place] [address] Glucose (U) [Mass/Vol] Negative Normal [facility] Comment on above: Performed By: #### 5 [id number], [id number], [id number], 6548047 ####[facility] (DEFAULT)[address] [place] [address] Ketones Ql (U) Negative Normal [facility] Comment on above: Performed By: #### 5 [id number], [id number], [id number], 7059054 ####[facility] (DEFAULT)[address] [place] [address] Micro? Indicated Invalid Interpretation Code [facility] Comment on above: Result Comment: Resu lt created by rule GL_MAGR_ADD_UA_MICRO Performed By: #### 5 [id number], [id number], [id number], [id number] ####[facility] (DEFAULT)[address] [place] [address] UA Bilirubin Negative Normal [facility] Comment on above: Performed By: #### 5 [id number], [id number], [id number], [id number] ####[facility] (DEFAULT)[address] [place] [address]489 UA Blood Negative Normal NEGATIVE [facility] Comment on above: Performed By: #### 5 8046941, [id number], [id number], 1030590 ####[facility] (DEFAULT)[address] [place] [address] UA Clarity CLEAR Normal CLEAR [facility] Comment on above: Performed By: #### 5 [id number], [id number], [id number], 2386802 ####[facility] (DEFAULT)[address] [place] [address] UA Leuk Est TRACE Abnormal NEGATIVE [facility] Comment on above: Performed By: #### 5 6443596, [id number], [id number], 7661635 ####[facility] (DEFAULT)[address] [place] [address]66[address] UA Nitrite Negative Normal NEGATIVE [facility] Comment on above: Performed By: #### 5 4675545, [id number], [id number], [id number] ####[facility] (DEFAULT)[address] [place] [address] UA pH 6.0 Normal 5-8 [facility] Comment on above: Performed By: #### 5 3934507, [id number], [id number], 6074810 ####[facility] (DEFAULT)[address] [place] [address] UA Protein Negative Normal NEGATIVE [facility] Comment on above: Performed By: #### 5 4271430, [id number], [id number], 5122031 ####[facility] (DEFAULT)[address] [place] [address] UA Spec Grav >=1.030 Normal 1.001-1.035 [facility] Comment on above: Performed By: #### 5 4735570, [id number], [id number], 7574981 ####[facility] (DEFAULT)[address] [place] [address] UA Urobilinogen 0.2 mg/dL Normal 0.2-1.0 [facility] Comment on above: Performed By: #### 5 6088067, [id number], [id number], 2676864 ####[facility] (DEFAULT)[address] [place] [address] Urine Source Clean Catch Normal [facility] Comment on above: Performed By: #### 5 9476351, [id number], [id number], 6987378 ####[facility] (DEFAULT)[address] [place] [address] Wet Mount.on 08-17-2021 Wet Mount. Negative Normal [facility] Comment on above: Performed By: #### 1 [id number] #### [facility] (DEFAULT) [address] [place] [address] RAD - MISCon 06-19-2020 RAD - MISC [id number] CD:127 Normal [facility] Insurance Correspondence Off iceon 06-07-2020 Insurance Correspondence Office [id number] 0CD:127 [facility] Consent for Treatmenton 05-22 Consent for Treatment [id number] 0CD:127 [facility] Consultation Noteon 05-25-20 20 Consultation Note [id number] 0CD:127 [facility] Operative Reporton 0 Operative Report [id number]#1.0 0CD:127 [facility] Ambulatory Clinical Summaryo n 03-12-2020 Ambulatory Clinical Summary {[id number]}CD:[id number] [facility] Coding Summary.on 11-14-2019 Coding Summary. CODING DATE: 11/14/2019 [facility] STATUS: Left Against Medical Advice PAYOR: Teofilo ADMIT DX: REASON FOR VISIT DX: O99.89 Other specified diseases and conditions complicating , childbirth and the puerperium M54.5 Low back pain R51 Headache FINAL DX: PRINCIPAL: Z53.21 Procedure and treatment not carried out due to patient leaving prior to being seen by health care provider [facility] DES[facility] DOCTOR NAME DATE NOTE: The code number assigned matches the documented diagnosis and / or procedure in the patient's chart. However, the narrative phrase printed from the coding software may appear abbreviated, or result in slightly different terminology. Coded By: Belinda Person Date Saved: 11/14/2019 08:46 am [facility] Coding Summary. CODING DATE: 11/14/2019 [facility] STATUS: Left Without Being Seen PAYOR: [...] Person Date Saved: 11/14/2019 08:46 am Normal [facility] ED Clinical Summaryon 2019 ED Clinical Summary [place] [id number] ED Clinical Summary Person Information Name: BEATRIS MACK [place] Age: 19 Years : 2000 Sex: Female Language: Finnish PCP: Jeanine Gimenez DO Marital Status: Single Phone: [phone] Visit Id: Visit Reason: Abdominal pain - [...] 11/12/2019 21:18:58 11/12/2019 21:18:58 11/12/2019 21:18:58 ADDRESS: [facility] [id number] [facility] DOC NOTES: MEDICAL INFORMATION: Prescriptions Given: PATIENT EDUCATION INFORMATION: Instructions: Follow up: DIAGNOSIS: Normal [facility] ED Patient Education Noteon 11-12-2019 ED Patient Education Note Normal [facility] ED Patient Summaryon 020 ED Patient Summary [place] [id number] Patient Discharge Instructions Person Information Name: BEATRIS MACK Age: 19 Years Arrival Date: 11/12/2019 19:17:38 Discharge Diagnosis: Primary Care Physician: Jeanine Gimenez DO Provider Information Primary Provider: Christian Vee MD Advanced Sugar Controller:None The exam and treatment you received in the Emergency Department were for an urgent problem and are not intended as complete care. It is important that you follow up with a doctor, nurse practitioner, or physician?s assistant community director for ongoing care. If your symptoms become [...] opioids can be used to help relieve xjhbviwe-yg-ovspvj pain and are often prescribed following a [...] be struggling with addiction, tell your health career and guidance counselor and ask for guidance or call [facility] National Helpline at 3-557-060-ZSBP. n Source: [place] Department of Health and Human Services/Center for Disease Control & Prevention [facility] Medications Given: Medication Dose Route No medications found. Medication Information: Comment: Pharmacy Information: Thank you for choosing [facility] Patient Education Materials: FREDERICK Stein HAYLEE T , have received the following patient education materials/instructions and have verbalized understanding: Patient Education Materials: Follow-up Instructions: Patient Signature Date Clinician/Nurse Signature ___ Date 11/12/2019 21:18:59 Normal [facility] Progress Note-Nurseon 2019 Progress Note-Nurse pt left before dr. vee was in for exam Normal [facility] UA With Cult Reflexon 2019 Bacteria LM Ql (Urine sed) 1+ /HPF Abnormal Trace [facility] Comment on above: Performed By: #### 1 [id number] ####[facility] [address] [place] [address] Bilirubin Ql (U) Negative Normal Negative [facility] Comment on above: Performed By: #### 1 [id number] ####[facility] [address] [address] Clarity (U) CLEAR Normal Clear [facility] Comment on above: Performed By: #### 1 [id number] ####[facility] [address] [place] [address] Color (U) YELLOW Normal Yellow [facility] Comment on above: Performed By: #### 1 [id number] ####[facility] [address] [place] [address] Crystals LM Ql (Urine sed) Present Normal [facility] Comment on above: Performed By: #### 1 [id number] ####[facility] [address] [place] [address] Epithelial cells.squamous LM.HPF (Urine sed) [#/Area] 3-4 Normal 0-2 [facility] Comment on above: Performed By: #### 1 [id number] ####[facility] [address] [place] [address] Glucose Test strip (U) [Mass/Vol] Negative Normal Negative [facility] Comment on above: Performed By: #### 1 [id number] ####[facility] [address] [place] [address] Hemoglobin Ql (U) Negative Normal Negative [facility] Comment on above: Performed By: #### 1 [id number] ####[address] [address] Ketones (U) [Mass/Vol] Negative Normal Negative [facility] Comment on above: Performed By: #### 1 [id number] ####[address] [address] [place].plasma/[place].R BC (Bld) [Mass ratio] 0-3 Normal 0-3 [facility] Comment on above: Performed By: #### 1 [id number] ####[address] [address] Mucus Ql (Urine sed) TRACE Normal [facility] Comment on above: Performed By: #### 1 [id number] ####[address] [address] Nitrite Ql (U) Negative Normal Negative [facility] Comment on above: Performed By: #### 1 6502415 ####[address] [address] pH (U) 6.0 [pH] 5.0-9.0 [facility] Comment on above: Performed By: #### 1 [id number] ####[address] [address] Protein (U) [Mass/Vol] Negative Normal Negative [facility] Comment on above: Performed By: #### 1 [id number] ####[address] [address] Specific gravity (U) [Rel density] 1.025 1.005-1.030 [facility] Comment on above: Performed By: #### 1 [id number] ####[address] [address] UA Spec Desc Clean Catch Normal [facility] Comment on above: Performed By: #### 1 9002344 ####[address] [place] [address] Urobilinogen Qn (U) 0.2 {Joy'U}/dL Normal 0.0-1.0 [facility] Comment on above: Performed By: #### 1 [id number] ####[facility] [address] [place] [address] WBC Auto Ql (U) Negative Normal Negative [facility] Comment on above: Performed By: #### 1 5995660 ####[facility] [address] [place] [address] WBC LM.HPF (Urine sed) [#/Area] 0-5 Normal 0-5 [facility] Comment on above: Performed By: #### 1 [id number] ####[facility] [address] [place] [address] Automated erythrocytes count in urine sediment (number/area)on 11-10-2019 RBC Auto (Urine sed) [#/Area] 3-4 [HPF] [facility] Automated leukocytes count i n urine sediment (number/area)on 11-10-2019 WBC Auto (Urine sed) [#/Area] 20-49 [HPF] [facility] Automated urine color determ inationon 11-10-2019 Color (U) Yellow Yellow [facility] Automated urine hyaline cast s count (number/volume)on 11-10-2019 Hyaline casts Auto (U) [#/Vol] Rare [LPF] [facility] Casts typing in urine sedime nt by light microscopyon 11-10-2019 Casts LM Nom (Urine sed) None seen [LPF] None S een [facility] Specific gravity of Urine by Automated test stripon 11-10-2019 Specific gravity (U) [Rel density] 1.017 1.001-1.030 [facility] Squamous epithelial cells de tection in urine sediment by light microscopyon 11-10-2019 Epithelial cells.squamous LM Ql (Urine sed) 5-9 [HPF] [facility] Urine bacteria detection by automated methodon 11-10-2019 Bacteria Auto Ql (U) 2+ None Seen [facility] Urine clarity by refractomet ry automatedon 11-10-2019 Clarity Refractometry automated (U) Turbid Clear [facility] Urine culture routineon 10-23 Bacteria identified Cx Nom (U) 2 Days [facility] Urine glucose measurement by automated test strip (mass/volume)on 11-10-2019 Glucose Auto test strip (U) [Mass/Vol] Normal mg/dL Normal [facility] Urine hemoglobin detection b y automated test stripon 11-10-2019 Hemoglobin Auto test strip Ql (U) Negative Negative [facility] Urine ketones measurement by automated test strip (mass/volume)on 11-10-2019 Ketones (U) [Mass/Vol] Negative Negative [facility] Urine leukocyte esterase det ection by automated test stripon 11-10-2019 Leukocyte esterase Auto test strip Ql (U) 3+ Negative [facility] Urine nitrite detection by t est stripon 11-10-2019 Nitrite Ql (U) Negative Negative [facility] Urine pH measurement by auto mated test stripon 11-10-2019 pH (U) 6.5 [pH] 5.0-9.0 [facility] Urine protein measurement by automated test strip (mass/volume)on 11-10-2019 Protein (U) [Mass/Vol] Negative Negative [facility] Urine total bilirubin detect ion by test stripon 11-10-2019 Bilirubin Ql (U) Negative Negative [facility] Urine urobilinogen measureme nt by automated test strip (mass/volume)on 11-10-2019 Urobilinogen (U) [Mass/Vol] Normal mg/dL Normal [facility] Automated erythrocytes count in urine sediment (number/area)on 10-19-2019 RBC Auto (Urine sed) [#/Area] 1-2 [HPF] [facility] Automated leukocytes count i n urine sediment (number/area)on 10-19-2019 WBC Auto (Urine sed) [#/Area] 10-19 [HPF] [facility] Automated urine color determ inationon 10-19-2019 Color (U) Yellow Yellow [facility] Chlamydia trachomatis rRNA d etection by probe and target amplification methodon 10-19-2019 C. trachomatis rRNA LEV+probe Ql (Unsp spec) Negative Negative [facility] Comment on above: Performed at: =[facility] [address] [place] [id number] Director: Mavis Sow MD, Phone: [phone] Serum or plasma beta choriog onadotropin measurement (units/volume)on 10-19-2019 HCG.beta subunit Qn 689488.00 m[IU]/mL [facility] Comment on above: Approximate Approxim ate hCG Gestational Age Range (mIU/ml) (weeks)0.2-1 5-50 1-2 50-500 2-3 100-5,000 3-4 500-10,000 4-5 1,000-50,000 5-6 10,000-100,000 6-8 15,000-200,000 8-12 10,000-100,000 Specific gravity of Urine by Automated test stripon 10-19-2019 Specific gravity (U) [Rel density] 1.021 1.001-1.030 [facility] Squamous epithelial cells de tection in urine sediment by light microscopyon 10-19-2019 Epithelial cells.squamous LM Ql (Urine sed) 10-19 [HPF] [facility] Urinalysison 10-19-2019 Hyaline casts LM Ql (Urine sed) 0-8 [LPF] [facility] Urine bacteria detection by automated methodon 10-19-2019 Bacteria Auto Ql (U) 1+ None Seen [facility] Urine clarity by refractomet ry automatedon 10-19-2019 Clarity Refractometry automated (U) Cloudy Clear [facility] Urine culture routineon 09-22 Bacteria identified Cx Nom (U) 2 Days [facility] Urine glucose measurement by automated test strip (mass/volume)on 10-19-2019 Glucose Auto test strip (U) [Mass/Vol] Normal mg/dL Normal [facility] Urine hemoglobin detection b y automated test stripon 10-19-2019 Hemoglobin Auto test strip Ql (U) Trace Negative [facility] Urine ketones measurement by automated test strip (mass/volume)on 10-19-2019 Ketones (U) [Mass/Vol] Negative [facility] Urine leukocyte esterase det ection by automated test stripon 10-19-2019 Leukocyte esterase Auto test strip Ql (U) 1+ Negative [facility] Urine nitrite detection by t est stripon 10-19-2019 Nitrite Ql (U) Negative Negative [facility] Urine pH measurement by auto mated test stripon 10-19-2019 pH (U) 5.5 [pH] 5.0-9.0 [facility] Urine protein measurement by automated test strip (mass/volume)on 10-19-2019 Protein (U) [Mass/Vol] Negative [facility] Urine total bilirubin detect ion by test stripon 10-19-2019 Bilirubin Ql (U) Negative Negative [facility] Urine urobilinogen measureme nt by automated test strip (mass/volume)on 10-19-2019 Urobilinogen (U) [Mass/Vol] Normal mg/dL Normal [facility] Automated erythrocytes count in urine sediment (number/area)on 10-02-2019 RBC Auto (Urine sed) [#/Area] 0-1 [HPF] [facility] Automated leukocytes count i n urine sediment (number/area)on 10-02-2019 WBC Auto (Urine sed) [#/Area] 20-49 [HPF] [facility] Automated urine color determ inationon 10-02-2019 Color (U) Yellow Yellow [facility] Automated urine hyaline cast s count (number/volume)on 10-02-2019 Hyaline casts Auto (U) [#/Vol] 0-1 [LPF] [facility] Casts typing in urine sedime nt by light microscopyon 10-02-2019 Casts LM Nom (Urine sed) None seen [LPF] None S een [facility] Chlamydia trachomatis rRNA d etection by probe and target amplification methodon 10-02-2019 C. trachomatis rRNA LEV+probe Ql (Unsp spec) Negative Negative [facility] Comment on above: Performed at: =G - L [address] [id number] Director: Mavis Sow MD, Phone: [phone] Specific gravity of Urine by Automated test stripon 10-02-2019 Specific gravity (U) [Rel density] 1.020 1.001-1.030 [facility] Squamous epithelial cells de tection in urine sediment by light microscopyon 10-02-2019 Epithelial cells.squamous LM Ql (Urine sed) 10-19 [HPF] [facility] Urine bacteria detection by automated methodon 10-02-2019 Bacteria Auto Ql (U) 2+ None Seen [facility] Urine clarity by refractomet ry automatedon 10-02-2019 Clarity Refractometry automated (U) Cloudy Clear [facility] Urine culture routineon 09-21 Bacteria identified Cx Nom (U) 2 Days [facility] Urine glucose measurement by automated test strip (mass/volume)on 10-02-2019 Glucose Auto test strip (U) [Mass/Vol] Normal mg/dL Normal [facility] Urine hemoglobin detection b y automated test stripon 10-02-2019 Hemoglobin Auto test strip Ql (U) Negative Negative [facility] Urine ketones measurement by automated test strip (mass/volume)on 10-02-2019 Ketones (U) [Mass/Vol] Negative Negative [facility] Urine leukocyte esterase det ection by automated test stripon 10-02-2019 Leukocyte esterase Auto test strip Ql (U) 2+ Negative [facility] Urine nitrite detection by t est stripon 10-02-2019 Nitrite Ql (U) Negative Negative [facility] Urine pH measurement by auto mated test stripon 10-02-2019 pH (U) 7.0 [pH] 5.0-9.0 [facility] Urine protein measurement by automated test strip (mass/volume)on 10-02-2019 Protein (U) [Mass/Vol] Negative Negative [facility] Urine sediment renal epithel ial cell count by microscopy (number/high power field)on 10-02-2019 Epithelial cells.renal LM.HPF (Urine sed) [#/Area] 1-2 [HPF] [facility] Urine total bilirubin detect ion by test stripon 10-02-2019 Bilirubin Ql (U) Negative Negative [facility] Urine urobilinogen measureme nt by automated test strip (mass/volume)on 10-02-2019 Urobilinogen (U) [Mass/Vol] Normal mg/dL Normal [facility] Automated basophil %on 09-06 Basophils/100 WBC (Bld) 0.1 % [facility] Automated basophil counton 1 11-07-2018 Basophils (Bld) [#/Vol] 0.0 10*3/uL 0.0-0.2 [facility] Automated blood lymphocyte c ount (number/volume)on 09-06-2019 Lymphocytes (Bld) [#/Vol] 0.4 10*3/uL 1.00-4.8 [facility] Automated blood lymphocyte c ount as percentage of total leukocyteson 09-06-2019 Lymphocytes/100 WBC (Bld) 5.3 % [facility] Automated blood monocyte cou nton 09-06-2019 Monocytes (Bld) [#/Vol] 1.2 10*3/uL 0.0-0.8 [facility] Automated blood platelet cou nt (count/volume)on 09-06-2019 Platelets (Bld) [#/Vol] 284 10*3/uL 150-450 [facility] Automated blood platelet mckenna n volume measurementon 09-06-2019 Platelet mean volume (Bld) [Entitic vol] 8.4 fL 6.3-10.7 [facility] Automated eosinophil %on Eosinophils/100 WBC (Bld) 0.3 % [facility] Automated eosinophil counton 09-06-2019 Eosinophils (Bld) [#/Vol] 0.0 10*3/uL 0.0-0.45 [facility] Automated erythrocyte distri bution width ratioon 09-06-2019 Erythrocyte distribution width (RBC) [Ratio] 16.9 % 11.9-15.3 [facility] Automated erythrocyte mean c orpuscular hemoglobin (mass per erythrocyte)on 09-06-2019 MCH (RBC) [Entitic mass] 29.9 pg 24.7-34.3 [facility] Automated erythrocyte mean c orpuscular hemoglobin concentration measurement (mass/volon 09-06-2019 MCHC (RBC) [Mass/Vol] 33.4 g/dL 32.0-35.0 [facility] Automated erythrocyte mean c orpuscular volumeon 09-06-2019 MCV (RBC) [Entitic vol] 89.6 fL 80-100 F [facility] Automated erythrocytes count in urine sediment (number/area)on 09-06-2019 RBC Auto (Urine sed) [#/Area] 10-19 [HPF] [facility] Automated leukocytes count i n urine sediment (number/area)on 09-06-2019 WBC Auto (Urine sed) [#/Area] 5-9 [HPF] [facility] Automated monocyte %on 09-06 Monocytes/100 WBC (Bld) 15.4 % F [facility] Automated neutrophil %on Neutrophils/100 WBC (Bld) 78.9 % [facility] Automated urine color determ inationon 09-06-2019 Color (U) Yellow Yellow [facility] Blood erythrocytes automated count (number/volume)on 09-06-2019 RBC (Bld) [#/Vol] 4.36 10*6/uL 3.60-5.00 [facility] Blood hemoglobin measurement (mass/volume)on 09-06-2019 Hemoglobin (Bld) [Mass/Vol] 13.0 g/dL 11.8-15.4 [facility] Blood leukocytes automated c ount (number/volume)on 09-06-2019 WBC (Bld) [#/Vol] 8.0 10*3/uL 3.8-11.6 [facility] Blood neutrophil count by au tomated method (number/volume)on 09-06-2019 Neutrophils (Bld) [#/Vol] 6.3 10*3/uL 1.8-7.7 [facility] Hematocrit [Volume Fraction] of Blood by Automated counton 09-06-2019 Hematocrit (Bld) [Volume fraction] 39.1 % 34.0-46.4 [facility] Otheron 09-06-2019 Nucleated RBC/100 WBC (Bld) [Ratio] 0.0 % 0-0.5 [facility] Serum or plasma beta choriog onadotropin measurement (units/volume)on 09-06-2019 HCG.beta subunit Qn 4195.00 m[IU]/mL [facility] Comment on above: Approximate Approxim ate hCG Gestational Age Range (mIU/ml) (weeks)0.2-1 5-50 1-2 50-500 2-3 100-5,000 3-4 500-10,000 4-5 1,000-50,000 5-6 10,000-100,000 6-8 15,000-200,000 8-12 10,000-100,000 Specific gravity of Urine by Automated test stripon 09-06-2019 Specific gravity (U) [Rel density] 1.015 1.001-1.030 [facility] Squamous epithelial cells de tection in urine sediment by light microscopyon 09-06-2019 Epithelial cells.squamous LM Ql (Urine sed) 10-19 [HPF] [facility] Urinalysison 09-06-2019 Hyaline casts LM Ql (Urine sed) 0-8 [LPF] [facility] Urine bacteria detection by automated methodon 09-06-2019 Bacteria Auto Ql (U) 1+ None Seen [facility] Urine clarity by refractomet ry automatedon 09-06-2019 Clarity Refractometry automated (U) Clear Clear [facility] Urine culture routineon 08-21 Bacteria identified Cx Nom (U) Strep. agalactiae Grp B [facility] Urine glucose measurement by automated test strip (mass/volume)on 09-06-2019 Glucose Auto test strip (U) [Mass/Vol] Normal mg/dL Normal [facility] Urine hemoglobin detection b y automated test stripon 09-06-2019 Hemoglobin Auto test strip Ql (U) Negative Negative [facility] Urine human chorionic gonado tropin (hCG) detection by immunoassayon 09-06-2019 HCG ( test) Ql (U) Positive [facility] Urine ketones measurement by automated test strip (mass/volume)on 09-06-2019 Ketones (U) [Mass/Vol] 1+ Negative [facility] Urine leukocyte esterase det ection by automated test stripon 09-06-2019 Leukocyte esterase Auto test strip Ql (U) 1+ Negative [facility] Urine nitrite detection by t est stripon 09-06-2019 Nitrite Ql (U) Negative Negative [facility] Urine pH measurement by auto mated test stripon 09-06-2019 pH (U) 7.0 [pH] 5.0-9.0 [facility] Urine protein measurement by automated test strip (mass/volume)on 09-06-2019 Protein (U) [Mass/Vol] Negative Negative [facility] Urine total bilirubin detect ion by test stripon 09-06-2019 Bilirubin Ql (U) Negative Negative [facility] Urine urobilinogen measureme nt by automated test strip (mass/volume)on 09-06-2019 Urobilinogen (U) [Mass/Vol] Normal mg/dL Normal [facility] C Cervicalon 08-03-2019 Cervical Culture [...] Locations R1: This test was performed at: [facility], [address] [place] [address], [id number] , [facility] Comment on above: Performed By: #### [id number] ####[address] [id number] [place] [address] Coding Summary.on 08-03-2019 Coding Summary. CODING DATE: 08/03/2019 FINAL [facility] STATUS: Home (Routine DC) PAYOR: Teofilo [...] Belinda Person Date Saved: 08/03/2019 05:45 am [facility] Coding Summary.on 08-02-2019 Coding Summary. CODING DATE: 08/02/2019 FINAL [facility] STATUS: Home (Routine DC) PAYOR: [place] ADMIT DX: REASON FOR VISIT DX: N89.8 [...] Person Date Saved: 08/02/2019 08:55 am Normal [facility] ED Clinical Summaryon 2018 ED Clinical Summary [place] [id number] ED Clinical Summary Person Information Name: BEATRIS MACK Monique/[facility] Age: 19 Years : 2000 12:00 AM Sex: Female Language: Finnish PCP: Jeanine Gimenez DO Marital Status: Single Phone: [phone] Visit Id: Visit Reason: STD exposure; VAGINAL [...] 08/02/2019 2:51 PM 08/02/2019 2:51 PM ADDRESS: [address] [place] [id number] PHYS DOC NOTES: MEDICAL INFORMATION: Prescriptions Given: PATIENT EDUCATION INFORMATION: Instructions: Sexually Transmitted Disease Follow up: With: Address: When: Jeanine Gimenez [facility] [address], [address] [address] Business (1) In 3 days 08/05/2019 DIAGNOSIS: STD exposure Normal [facility] ED Note-Physicianon 08-02-20 ED Note-Physician Basic [...] She does have appointment next week with GEODETIC TECHNICIAN for follow-up, and is educated that she [...] EST [address] [place] [address]- Business (1) Additional Instructions: Patient Education Sexually Transmitted Disease Attestation Patient seen and evaluated by the physician assistant community director. Attending physician was present in the emergency department and supervised care. This report was transcribed using voice recognition software. Every effort was made to ensure accuracy, however, inadvertently computerized information clerk brokerage mistakes may be present. Problem List/Past Medical [...] Diagnostic Results No qualifying data available. Normal [facility] Comment on above: Result Comment: Elec [...] Document Reviewed: 03/28/2014 ExitCare? Patient Information ?2014 [employer]. This information is not intended to replace advice given to you by your health care provider. Make sure you discuss any questions you have with your health care provider. Normal [facility] ED Patient Summaryon 019 ED Patient Summary [address] [address] Patient Discharge Instructions Person Information Name: BEATRIS MACK Age: 19 Years Arrival Date: 08/02/2019 1:44 PM Discharge Diagnosis: STD exposure Primary Care Physician: Jeanine Gimenez DO Provider Information Primary Provider: Bartolo Randolph DO Advanced Sugar Controller:Agusto Oshea PA-C The exam and treatment you received in the Emergency Department were for an urgent problem and are not intended as complete care. It is important that you follow up with a doctor, nurse practitioner, or physician?s assistant community director for ongoing care. If your symptoms become worse or you do not improve as expected and you are unable to reach your usual health care provider, you should return to the Emergency Department. We are available 24 hours a day. BEATRIS MACK has been given the following list of patient education materials, prescriptions and follow-up instructions: Follow-up Instructions: With: Address: When: Jeanine Gimenez [facility] [address], [facility] [address] [place] [address] Business (1) In 3 days 08/05/2019 In the event that this physician does not participate in your insurance network, please consult with your insurance company to find a nearby participating provider. Patient Education Materials: Sexually Transmitted Disease A MESSAGE TO ALL PATIENTS REGARDING OPIOIDS PRESCRIPTION OPIOIDS: WHAT YOU NEED TO KNOW Prescription opioids can be used to help relieve xcwjueow-pp-ueuvbz pain and are often prescribed following a [...] be struggling with addiction, tell your health career and guidance counselor and ask for guidance or call [facility]?S National Helpline at 6-432-154-BOBY. i Source: [place] Department of Health and Human Services/Center for Disease Control & Prevention [facility] Medications Given: Medication Dose Route No medications found. Medication Information: Medications to Continue with No Changes Other Medications metronidazole (Flagyl 500 mg Tab) 1 Tabs By Mouth every 12 hours for 7 Days. Refills: 0. Comment: Pharmacy Information: Trav Cardoza Thank you for choosing [facility] Patient Education Materials: Sexually Transmitted Disease [...] Document Reviewed: 03/28/2014 ExitCare? Patient Information ?2014 [employer]. This information is not intended to replace advice given to you by your health care provider. Make sure you discuss any questions you have with your health care provider. I, BEATRIS MACK , have received the following patient education materials/instructions and have verbalized understanding: Patient Education Materials: Sexually Transmitted Disease Follow-up Instructions: With: Address: When: Jeanine Gimenez [address] [place], [place] [address]dict [place] , [address] [address] [facility] (1) In 3 days 08/05/2019 Prescriptions: Patient Signature Date Clinician/Nurse Signature ___ Date 08/02/19 14:51:07 Normal [facility] ED Clinical Summaryon 2018 ED Clinical Summary [address] [address] ED Clinical Summary Person Information Name: BEATRIS MACK [place] Age: 19 Years : 2000 12:00 AM Sex: Female Language: Finnish PCP: Jeanine Gimenez DO Marital Status: Single Phone: [phone] Visit Id: Visit Reason: Vaginal pain; Vaginal [...] 08/01/2019 12:06 PM 08/01/2019 12:06 PM ADDRESS: [address] [place] [id number] PHYS DOC NOTES: MEDICAL INFORMATION: Prescriptions Given: Prescription Display metronidazole (Flagyl 500 mg Tab) 500 mg = 1 tab(s), Oral, q12hr, X 7 day(s), # 14 tab(s), Refills(s) 0 PATIENT EDUCATION INFORMATION: Instructions: Trichomoniasis; Sexually Transmitted Disease; Safe Sex; Cervicitis Follow up: With: Address: When: Saida BAIG [address] [place] [address] Business (1) In 3 days 08/04/2019 DIAGNOSIS: Cervicitis; STD exposure Normal [facility] ED Note-Physicianon 08-01-20 ED Note-Physician Basic [...] sexual practices, and is to follow-up with GEODETIC TECHNICIAN and PCP.Patient was encouraged to return to [...] BAIG In 3 days 08/04/2019 EST [address] [place] [address] [facility] (1) Additional Instructions: Patient Education Trichomoniasis Sexually Transmitted Disease Safe Sex Cervicitis Attestation Patient seen and evaluated by the physician assistant community director. Attending physician was present in the emergency department and supervised care. This report was transcribed using voice recognition software. Every effort was made to ensure accuracy, however, inadvertently computerized information clerk brokerage mistakes may be present. ATTENDING NOTE: I [...] Diagnostic Results No qualifying data available. Normal [facility] Comment on above: Result Comment: Elec [...] Document Reviewed: 03/28/2014 ExitCare? Patient Information ?2015 [employer]. This information is not intended to replace [...] Document Reviewed: 03/01/2014 ExitCare? Patient Information ?2015 [employer]. This information is not intended to replace [...] ? Your health care provider may recommend eafk-ohw-fkqnbhw medicines or creams to decrease itching or irritation. ? Your sexual partner will need to be treated if infected. HOME CARE INSTRUCTIONS ? Take medicines only as directed by your health care provider. ? Take rvbe-lkp-uflhwdb medicine for itching or irritation as directed [...] Document Reviewed: 06/19/2014 ExitCare? Patient Information ?2015 [employer]. This information is not intended to replace [...] Document Reviewed: 02/28/2013 ExitCare? Patient Information ?2014 [employer]. This information is not intended to replace advice given to you by your health care provider. Make sure you discuss any questions you have with your health care provider. Normal [facility] ED Patient Summaryon 019 ED Patient Summary [address] [address] Patient Discharge Instructions Person Information Name: BEATRIS MACK Age: 19 Years Arrival Date: 08/01/2019 11:15 AM Discharge Diagnosis: Cervicitis; STD exposure Primary Care Physician: Jeanine Gimenez DO Provider Information Primary Provider: Joanne Lutz Advanced Sugar Controller:Agusto Oshea PA-C The exam and treatment you received in the Emergency Department were for an urgent problem and are not intended as complete care. It is important that you follow up with a doctor, nurse practitioner, or physician?s assistant community director for ongoing care. If your symptoms become [...] With: Address: When: Saidalatisha BAIG [address] [place] [address] Business (1) In 3 days [...] opioids can be used to help relieve xzxdhste-lo-elbqct pain and are often prescribed following a [...] be struggling with addiction, tell your health career and guidance counselor and ask for guidance or call [facility] National Helpline at 2-447-410-AGSY. o Source: US Department of Health and Human Services/Center for Disease Control & Prevention [facility] Medications Given: Medication Dose Route azithromycin 1000.00 mg Oral ceftriaxone 250.00 mg IntraMuscular Left Gluteus Medius fluconazole 150.00 mg Oral Medication Information: New Medications Printed Prescriptions metronidazole (Flagyl 500 mg Tab) 1 Tabs By Mouth every 12 hours for 7 Days. Refills: 0. Comment: Pharmacy Information: Tarv Cardoza Thank you for choosing [facility] Patient Education Materials: Trichomoniasis Trichomoniasis is [...] ? Your health care provider may recommend qvif-orp-jhapwvb medicines or creams to decrease itching or irritation. ? Your sexual partner will need to be treated if infected. HOME CARE INSTRUCTIONS ? Take medicines only as directed by your health care provider. ? Take aklt-mul-dqongqa medicine for itching or irritation as directed [...] Document Reviewed: 06/19/2014 ExitCare? Patient Information ?2015 [employer]. This information is not intended to replace [...] Document Reviewed: 03/28/2014 ExitCare? Patient Information ?2014 [employer]. This information is not intended to replace [...] Document Reviewed: 02/28/2013 ExitCare? Patient Information ?2014 [employer]. This information is not intended to replace [...] Document Reviewed: 03/01/2014 ExitCare? Patient Information ?2015 [employer]. This information is not intended to replace advice given to you by your health care provider. Make sure you discuss any questions you have with your health care provider. FREDERICK Stein HAYLEE T , have received the following patient education materials/instructions and have verbalized understanding: Patient Education Materials: Trichomoniasis; Sexually Transmitted Disease; Safe Sex; Cervicitis Follow-up Instructions: With: Address: When: Saida BAIG [address] [place] [address] Business (1) In 3 days 08/04/2019 Prescriptions: [metronidazole (Flagyl 500 mg Tab)] Patient Signature Date Clinician/Nurse Signature ___ Date 08/01/19 12:06:35 [facility] Pre-Arrival Noteon 9 Pre-Arrival Note Pre-Arrival Summary Name: phil Current Date: 08/01/2019 11:16:54 EST Gender: Female Date of : Age: 89 Pre-Arrival Type: EMS ETA: 08/01/2019 11:29:00 EST Primary Care Physician: Presenting Problem: fall, posterior head lac. Pre-Arrival User: Dominique Matamoros RN Referring Source: Location: DC Completion Date/Time: 08/01/19 10:59:00 [facility] Emergency Department Pre-Hospital Report Form Vital Signs: Pre-Hospital Report: Treatment in Route: Response to Treatment: Misc. Issues: Normal [facility] CNPTOUTREACHon 05-06-2019 CNPTOUTREACH Patient Outreach (NEPHMN) BEATRIS MACK ([id number]) 1 F Date Time Provider Department 05/06/19 SATISH VILLALPANDO NEPHMN During your visit today, we recorded the following information about you: Allergies As of Date: 05/06/2019 (Not on File) Date Reviewed: Never Reviewed Visit Diagnosis:Screening for genitourinary condition [Z13.89] Order(s):UA CHEMSTRIP ONLY [SQUA] Order #: [id number] Problem List As Of Date: 05/06/2019 (None) Encounter Status:Closed by EPIC, PRODUSER on 05/23/19 Normal [facility] Vital Signs Date Time Vital Sign Value Performing Clinician Facility 03-27-2025 11:07-0400 Body height 170.2 cm Rowdy Honeycutt DPM Work Phone: [facility] 03-27-2025 11:07-0400 Body mass index (BMI) [Ratio] 27.41 kg/m2 Rowdy Honeycutt DPM Work Phone: [facility] 03-27-2025 11:07-0400 Body weight 79.38 kg Rowdy Honeycutt DPM Work Phone: [facility] 03-27-2025 11:07-0400 Respiratory rate 18 /min Rowdy Honeycutt DPM Work Phone: [facility] 03-21-2025 13:10-0400 Body height 170.2 cm Rowdy Honeycutt DPM Work Phone: [facility] 03-21-2025 13:10-0400 Body mass index (BMI) [Ratio] 27.41 kg/m2 Rowdy Honeycutt DPM Work Phone: [facility] 03-21-2025 13:10-0400 Body weight 79.38 kg Rowdy Honeycutt DPM Work Phone: [facility] 03-21-2025 13:10-0400 Respiratory rate 18 /min Rowdy Honeycutt DPM Work Phone: [facility] 03-08-2025 14:32-0400 Body height 170.18 cm Shad Alamo DO Work Phone: [facility] 03-08-2025 14:32-0400 Body mass index (BMI) [Ratio] 27.7 kg/m2 Shad Alamo DO Work Phone: [facility] 03-08-2025 14:32-0400 Body temperature 98 [degF] Shad Alamo DO Work Phone: [facility] 03-08-2025 14:32-0400 Body weight 80.28 kg Shad Alamo DO Work Phone: [facility] 03-08-2025 14:32-0400 Diastolic blood pressure 70 mm[Hg] Shad Jasmeet DO Work Phone: [facility] 03-08-2025 14:32-0400 Heart rate 78 /min Shad Alamo DO Work Phone: [facility] 03-08-2025 14:32-0400 Respiratory rate 18 /min Shad Jasmeet DO Work Phone: [facility] 03-08-2025 14:32-0400 SaO2% (BldA) [Mass fraction] 98 % Shad Jasmeet DO Work Phone: [facility] 03-08-2025 14:32-0400 Systolic blood pressure 130 mm[Hg] Shad Jasmeet DO Work Phone: [facility] 03-02-2025 16:22-0400 Body height 170.18 cm Shad Jasmeet DO Work Phone: [facility] 03-02-2025 16:22-0400 Body temperature 99.2 [degF] Shadchaya Alamo DO Work Phone: [facility] 03-02-2025 16:22-0400 Body weight 81.6 kg Shad Alamo DO Work Phone: [facility] 03-02-2025 16:22-0400 Diastolic blood pressure 83 mm[Hg] Shad Alamo DO Work Phone: [facility] 03-02-2025 16:22-0400 Heart rate 98 /min Shad Alamo DO Work Phone: [facility] 03-02-2025 16:22-0400 Respiratory rate 20 /min Shad Alamo DO Work Phone: [facility] 03-02-2025 16:22-0400 SaO2% (BldA) [Mass fraction] 98 % Shad Alamo DO Work Phone: [facility] 03-02-2025 16:22-0400 Systolic blood pressure 125 mm[Hg] Shad Alamo DO Work Phone: [facility] 02-28-2025 17:34-0400 Body height 170.18 cm Shad Alamo DO Work Phone: [facility] 02-28-2025 17:34-0400 Body temperature 98.1 [degF] Shad Alamo DO Work Phone: [facility] 02-28-2025 17:34-0400 Body weight 80.75 kg Shad Alamo DO Work Phone: [facility] 02-28-2025 17:34-0400 Diastolic blood pressure 83 mm[Hg] Shad Alamo DO Work Phone: [facility] 02-28-2025 17:34-0400 Heart rate 81 /min Shad Alamo DO Work Phone: [facility] 02-28-2025 17:34-0400 Respiratory rate 18 /min Shad Alamo DO Work Phone: [facility] 02-28-2025 17:34-0400 SaO2% (BldA) [Mass fraction] 97 % Shad Alamo DO Work Phone: [facility] 02-28-2025 17:34-0400 Systolic blood pressure 133 mm[Hg] Shda Alamo DO Work Phone: [facility] 07-11-2024 16:00-0400 Diastolic blood pressure 76 mm[Hg] PHYSICIAN NO [facility] 07-11-2024 16:00-0400 Heart rate 76 /min PHYSICIAN NO [facility] 07-11-2024 16:00-0400 Respiratory rate 16 /min PHYSICIAN NO [facility] 07-11-2024 16:00-0400 SaO2% (BldA) [Mass fraction] 98 % PHYSICIAN NO [facility] 07-11-2024 16:00-0400 Systolic blood pressure 124 mm[Hg] PHYSICIAN NO [facility] 07-11-2024 13:07-0400 Body height 170.18 cm PHYSICIAN NO [facility] 07-11-2024 13:07-0400 Body temperature 98.6 [degF] PHYSICIAN NO [facility] 07-11-2024 13:07-0400 Body weight 81.25 kg PHYSICIAN NO [facility] 01-15-2024 23:37-0400 Diastolic blood pressure 80 mm[Hg] PHYSICIAN NO [facility] 01-15-2024 23:37-0400 Heart rate 68 /min PHYSICIAN NO [facility] 01-15-2024 23:37-0400 Respiratory rate 18 /min PHYSICIAN NO [facility] 01-15-2024 23:37-0400 SaO2% (BldA) [Mass fraction] 96 % PHYSICIAN NO [facility] 01-15-2024 23:37-0400 Systolic blood pressure 136 mm[Hg] PHYSICIAN NO [facility] 01-15-2024 19:53-0400 Body height 170.18 cm PHYSICIAN NO [facility] 01-15-2024 19:53-0400 Body temperature 98.3 [degF] PHYSICIAN NO [facility] 01-15-2024 19:53-0400 Body weight 80 kg PHYSICIAN NO [facility] 10-14-2023 03:58-0500 Body height 170.18 cm PHYSICIAN NO [facility] 10-14-2023 03:58-0500 Body temperature 99.1 [degF] PHYSICIAN NO [facility] 10-14-2023 03:58-0500 Body weight 75 kg PHYSICIAN NO [facility] 10-14-2023 03:58-0500 Diastolic blood pressure 99 mm[Hg] PHYSICIAN NO [facility] 10-14-2023 03:58-0500 Heart rate 97 /min PHYSICIAN NO [facility] 10-14-2023 03:58-0500 Respiratory rate 18 /min PHYSICIAN NO [facility] 10-14-2023 03:58-0500 SaO2% (BldA) [Mass fraction] 98 % PHYSICIAN NO [facility] 10-14-2023 03:58-0500 Systolic blood pressure 147 mm[Hg] PHYSICIAN NO [facility] 08-26-2023 23:03-0500 Body height 170.18 cm PHYSICIAN NO [facility] 08-26-2023 23:03-0500 Body temperature 98 [degF] PHYSICIAN NO [facility] 08-26-2023 23:03-0500 Body weight 79.37 kg PHYSICIAN NO [facility] 08-26-2023 23:03-0500 Diastolic blood pressure 96 mm[Hg] PHYSICIAN NO [facility] 08-26-2023 23:03-0500 Heart rate 76 /min PHYSICIAN NO [facility] 08-26-2023 23:03-0500 Respiratory rate 16 /min PHYSICIAN NO [facility] 08-26-2023 23:03-0500 SaO2% (BldA) [Mass fraction] 99 % PHYSICIAN NO [facility] 08-26-2023 23:03-0500 Systolic blood pressure 134 mm[Hg] PHYSICIAN NO [facility] 12-20-2022 20:53-0400 Body height 170.18 cm PHYSICIAN NO [facility] 12-20-2022 20:53-0400 Body temperature 98.1 [degF] PHYSICIAN NO [facility] 12-20-2022 20:53-0400 Body weight 77.2 kg PHYSICIAN NO [facility] 12-20-2022 20:53-0400 Diastolic blood pressure 75 mm[Hg] PHYSICIAN NO [facility] 12-20-2022 20:53-0400 Heart rate 83 /min PHYSICIAN NO [facility] 12-20-2022 20:53-0400 Respiratory rate 16 /min PHYSICIAN NO [facility] 12-20-2022 20:53-0400 SaO2% (BldA) [Mass fraction] 97 % PHYSICIAN NO [facility] 12-20-2022 20:53-0400 Systolic blood pressure 128 mm[Hg] PHYSICIAN NO [facility] 08-22-2022 22:16-0500 Body height 170.18 cm PHYSICIAN NO [facility] 08-22-2022 22:16-0500 Body temperature 97.2 [degF] PHYSICIAN NO [facility] 08-22-2022 22:16-0500 Body weight 90.9 kg PHYSICIAN NO [facility] 08-22-2022 22:16-0500 Diastolic blood pressure 84 mm[Hg] PHYSICIAN NO [facility] 08-22-2022 22:16-0500 Heart rate 86 /min PHYSICIAN NO [facility] 08-22-2022 22:16-0500 Respiratory rate 18 /min PHYSICIAN NO [facility] 08-22-2022 22:16-0500 SaO2% (BldA) [Mass fraction] 98 % PHYSICIAN NO [facility] 08-22-2022 22:16-0500 Systolic blood pressure 154 mm[Hg] PHYSICIAN NO [facility] 11-10-2019 22:26-0500 BMI (Body Mass Index) 24.7 kg/m2 FAMILY [facility] 11-10-2019 22:26-0500 Body Temperature 98.8 [degF] FAMILY [facility] 11-10-2019 22:26-0500 Body weight 71.7 kg FAMILY NO [facility] 11-10-2019 22:26-0500 BP Diastolic 78 mm[Hg] FAMILY NO [facility] 11-10-2019 22:26-0500 BP Systolic 131 mm[Hg] FAMILY NO [facility] 11-10-2019 22:26-0500 Height 170.18 cm [facility] NO [facility] 11-10-2019 22:26-0500 Pulse (Heart Rate) 76 /min FAMILY [facility] 11-10-2019 22:26-0500 Pulse Oximetry 99 % [facility] NO [facility] 11-10-2019 22:26-0500 Respiratory Rate 16 /min FAMILY [facility] 10-19-2019 22:43-0500 BP Diastolic 58 mm[Hg] FAMILY NO [facility] 10-19-2019 22:43-0500 BP Systolic 110 mm[Hg] [facility] 10-19-2019 22:43-0500 Pulse (Heart Rate) 75 /min [facility] 10-19-2019 22:43-0500 Pulse Oximetry 99 % [facility] 10-19-2019 22:43-0500 Respiratory Rate 18 /min [facility] 10-19-2019 17:47-0500 BMI (Body Mass Index) 24.8 kg/m2 FAMILY NO [facility] 10-19-2019 17:47-0500 Body Temperature 98.1 [degF] [facility] 10-19-2019 17:47-0500 Body weight 72.05 kg [facility]ILY [facility] 10-19-2019 17:47-0500 Height 170.18 cm [facility]ILY [facility] 10-02-2019 20:23-0500 BP Diastolic 63 mm[Hg] [facility]ILY [facility] 10-02-2019 20:23-0500 BP Systolic 131 mm[Hg] [facility]ILY [facility] 10-02-2019 20:23-0500 Pulse (Heart Rate) 79 /min [facility] 10-02-2019 20:23-0500 Pulse Oximetry 97 % [facility]ILY [facility] 10-02-2019 20:23-0500 Respiratory Rate 16 /min [facility] 10-02-2019 18:13-0500 BMI (Body Mass Index) 24.5 kg/m2 FAMILY NO [facility] 10-02-2019 18:13-0500 Body Temperature 98 [degF] [facility] 10-02-2019 18:13-0500 Body weight 71.25 kg [facility]ILY [facility] 10-02-2019 18:13-0500 Height 170.18 cm [facility]ILY [facility] 09-06-2019 23:41-0500 BP Diastolic 76 mm[Hg] FAMILY [facility] 09-06-2019 23:41-0500 BP Systolic 136 mm[Hg] [facility] 09-06-2019 23:41-0500 Pulse (Heart Rate) 109 /min [facility] 09-06-2019 23:41-0500 Pulse Oximetry 97 % [facility] 09-06-2019 23:41-0500 Respiratory Rate 20 /min [facility] 09-06-2019 21:43-0500 Body Temperature 99.4 [degF] [facility] 09-06-2019 19:08-0500 BMI (Body Mass Index) 24.5 kg/m2 [facility] 09-06-2019 19:08-0500 Body weight 71.2 kg [facility] 09-06-2019 19:08-0500 Height 170.18 cm [facility] Encounters Encounter Date Encounter Type [...] encounter procedure Shad Alamo DO -[facility] [place] Work Phone: Start: 03-23-2025 End: 03-23-2025 ambulatory Shad Alamo DO Work Phone: [facility] Work Phone: Start: 03-21-2025 End: 03-21-2025 Patient encounter procedure LEN Saab -[facility] Start: 03-21-2025 End: 03-21-2025 ambulatory Shad Alamo DO Work Phone: [facility] Work Phone: Start: 03-21-2025 End: 03-21-2025 Bamboo [...] End: 03-08-2025 Patient encounter procedure Lluvia Schmidt FISH SMOKER -[facility] [place] Work Phone: Start: 03-02-2025 End: 03-02-2025 Emergency department patient visit Shad Alamo DO Work Phone: -Emergency Room Work Phone: Start: 02-28-2025 End: 02-28-2025 Emergency department patient visit Shad Alamo DO Work Phone: [facility]-Emergency Room Work Phone: Start: 02-23-2025 End: 02-23-2025 External Result Encounter Anuja Saab MD Work Phone: [facility] External Department Unsolicited Start: 02-23-2025 End: 02-23-2025 External Result Encounter Anuja Saab MD Work Phone: [facility] External Department Unsolicited Start: 02-23-2025 End: 02-23-2025 Patient encounter procedure Shad Alamo DO Work Phone: [facility] [place] Work Phone: Start: 02-23-2025 End: 02-23-2025 Orders Only Anuja Saab MD Work Phone: [facility] OB Comment on above: Anemia, unspecified type (Primary Dx) Start: 02-22-2025 End: 02-22-2025 Patient encounter procedure Shad Alamo DO Work Phone: [facility]-Lab [facility] Start: 02-22-2025 End: 02-22-2025 ambulatory Shad Alamo DO Work Phone: [facility] Work Phone: Start: 02-22-2025 End: 02-28-2025 External Result Encounter Anuja Saab MD Work Phone: [facility] External Department Unsolicited Start: 02-22-2025 End: 02-28-2025 External Result Encounter Anuja Saab MD Work Phone: [facility] External Department Unsolicited Start: 02-22-2025 End: 02-23-2025 Telephone encounter Nhi Castro RN [facility] Start: 02-22-2025 End: 02-22-2025 flow sheet [facility] Ob Nurse [facility] OB Comment on above: GA: [id number] Start: 02-22-2025 End: 02-22-2025 ambulatory ANUJA SAAB Not Available Start: 02-15-2025 End: 02-15-2025 Patient encounter procedure Shad Alamo DO [facility] Start: 02-15-2025 End: 02-15-2025 ambulatory Shad Alamo DO Work Phone: [facility] Work Phone: Start: 02-01-2025 End: 02-01-2025 Patient encounter procedure Shad Alamo DO [facility]: [facility] Start: 02-01-2025 End: 02-01-2025 ambulatory Shad Alamo DO Work Phone: [facility] Work Phone: Start: 09-24-2024 End: 09-24-2024 ambulatory PHYSICIAN NO [facility] Work Phone: Start: 09-24-2024 End: 09-24-2024 Departed Referred PHYSICIAN NO [facility] Start: 07-14-2024 End: 07-14-2024 ambulatory [facility] Start: 07-11-2024 End: 07-11-2024 Emergency department patient visit PHYSICIAN NO [facility]-Emergency Room Work Phone: Start: 01-15-2024 End: 01-15-2024 Emergency department patient visit PHYSICIAN NO [facility]-Emergency Room Work Phone: Start: 10-14-2023 End: 10-14-2023 Emergency department patient visit PHYSICIAN NO [facility] Work Phone: Start: 08-26-2023 End: 08-27-2023 Emergency department patient visit PHYSICIAN NO [facility]-Emergency Room Work Phone: Start: 06-03-2023 End: 06-03-2023 Emergency department patient visit PHYSICIAN NO [facility]-Emergency [facility] Work Phone: Start: 12-20-2022 End: 12-20-2022 Emergency department patient visit PHYSICIAN NO [facility] Work Phone: Start: 08-22-2022 End: 08-23-2022 Emergency department patient visit PHYSICIAN NO [facility] Room Start: 06-07-2022 End: 06-07-2022 [...] Work Phone: Start: 02-22-2025 Antibody screen Service [facility] Senior Comment on above: Order Comment: JUANITA [email or web address] Result Comment: PERF ORMED BY: [facility] [address] [place] [address] PATHOLOGIST INTERNAL AFFAIRS INVESTIGATOR CALLI JAFFE M.D. Start: 02-22-2025 Complete blood [...] laboratory evidence of HIV infection.HIV NegativePerformed at: [address] [id number] Director: Shai Marmolejo PhD, Phone: [phone] Start: 02-22-2025 MISC LAB Anuja tian MD [...] OB [address] [place] [address] Anuja Saab MD [address] [facility] [address] [place] [address] [facility] Start: 04-11-2025 End: 04-11-2025 ambulatory 04/11/2025 11:00 AM EDT Initial [facility] [address] [place] [phone] Anuja Saab MD [address] [place] [address] [facility] Start: 04-05-2025 End: 04-05-2025 Patient encounter procedure 04/05/2025 2:50 PM EDT Office Visit [facility] [address] [place] [phone] Rowdy Honeycutt, DPM [address] [facility] [address] [place] [address] [facility] Start: 03-28-2025 End: 03-28-2025 ambulatory 03/28/2025 2:30 PM EDT Evaluation [facility] PT [address] [place] [address] Meaghan Young, PT [facility] Start: 03-27-2025 End: 03-27-2025 Patient encounter procedure 03/27/2025 11:10 AM EDT Office Visit [facility] [address] [facility] [place] [address] Rowdy Honeycutt, DPM [address] [facility] [address] [place] [address] Closed fracture of proximal end of right fibula, unspecified fracture morphology, initial encounter (Primary Dx) [facility] Comment on above: Closed fracture of p roximal end of right fibula, unspecified fracture morphology, initial encounter (Primary Dx) Start: 03-27-2025 End: 03-27-2025 Professional / ancillary services management 03/27/2025 8:00 AM EDT Ancillary Procedure [facility] [address] [place] [phone] [facility] Start: 03-22-2025 End: 03-22-2025 Patient encounter procedure 03/22/2025 1:00 PM EDT Office Visit [facility] OB [address] [place] [phone] Anuja Saab MD [address] [place] [address] [facility] Start: 03-21-2025 End: 03-21-2025 Patient encounter procedure 03/21/2025 1:00 PM EDT Office Visit [facility] [address] [facility] [place] [phone] Rowdy Honeycutt, DPM [address] [facility] [address] [place] [address] Arrived [facility] Comment on above: Arrived Start: 03-15-2025 End: 03-15-2025 Patient encounter procedure 03/15/2025 10:45 AM EDT Office Visit [facility] OB [address] [place] [phone] Anuja Saab MD [address] [place] [address] [facility] Start: 02-22-2025 End: 02-22-[address] [facility] Start: 02-22-2025 [facility] Start: 02-22-2025 End: 02-22-2026 Bacteria identified in Urine by Culture [facility] Comment on above: Expected: 02/22/2025 , Expires: 02/22/2026 Start: 02-22-2025 End: 02-22-2026 Blood type and Indirect antibody screen panel - Blood Type and screen Lab Routine care, subsequent in first trimester Expected: 02/22/2025, Expires: 02/22/2026 [facility] Comment on above: Expected: 02/22/2025 , Expires: 02/22/2026 Start: 02-22-2025 End: 02-22-2026 CBC W Auto Differential panel - Blood CBC and differential Lab Routine care, subsequent in first trimester Expected: 02/22/2025, Expires: 02/22/2026 [facility] Comment on above: Expected: 02/22/2025 , Expires: 02/22/2026 Start: 02-22-2025 End: 02-22-2026 DRUG SCREEN 17 W/CONF, UR DRUG SCREEN 17 W/CONF, UR Lab Routine Encounter for drug screening Expected: 02/22/2025, Expires: 02/22/2026 [facility] Comment on above: Expected: 02/22/2025 , Expires: 02/22/2026 Start: 02-22-2025 End: 02-22-2026 hCG, quantitative, hCG, quantitative, Lab Routine examination or test, positive result Expected: 02/22/2025 (Approximate), Expires: 02/22/2026 [facility] Work Phone: Comment on above: Expected: 02/22/2025 (Approximate), Expires: 02/22/2026 Start: 02-22-2025 End: 02-22-2026 Hepatitis B virus surface Ag [Presence] in Serum or Plasma by Immunoassay [facility] Comment on above: Expected: 02/22/2025 , Expires: 02/22/2026 Start: 02-22-2025 End: 02-22-2026 Hepatitis C virus Ab [Presence] in Serum or Plasma by Immunoassay Hepatitis C antibody Lab Routine care, subsequent in first trimester Expected: 02/22/2025, Expires: 02/22/2026 [facility] Comment on above: Expected: 02/22/2025 , Expires: 02/22/2026 Start: 02-22-2025 End: 02-22-2026 HIV-2 antigen assay HIV-2 antigen Lab Routine care, subsequent in first trimester Expected: 02/22/2025, Expires: 02/22/2026 [facility] Comment on above: Expected: 02/22/2025 , Expires: 02/22/2026 Start: 02-22-2025 End: 02-22-2026 Rpr (dx) w/refl titer and confirmatory testing Rpr (dx) w/refl titer and confirmatory testing Lab Routine care, subsequent in first trimester Expected: 02/22/2025, Expires: 02/22/2026 [facility] Comment on above: Expected: 02/22/2025 , Expires: 02/22/2026 Start: 02-22-2025 End: 02-22-2026 Rubella antibody, IgG Rubella antibody, IgG Lab Routine care, subsequent in first trimester Expected: 02/22/2025, Expires: 02/22/2026 [facility] Comment on above: Expected: 02/22/2025 , Expires: 02/22/2026 Start: 02-22-2025 End: 02-22-2026 Urinalysis complete panel - Urine [facility] Work Phone: Comment on above: Expected: 02/22/2025 , Expires: 02/22/2026 Start: 09-24-[address] [facility] Start: 09-24-2024 Bacteria identified in Urine by Culture Urine Culture [facility] Start: 01-15-2024 CT Abdomen and Pelvi s WO contrast [facility] Start: 01-15-2024 CT of abdomen and pe lvis without contrast CT abdomen pelvis wo con [facility] Start: 01-15-2024 Bacteria identified in Urine by Culture [facility] Start: 10-14-2023 Bacteria identified in Urine by Culture [facility] Start: 10-14-2023 Genital Culture Genital Culture [facility] Start: 10-14-2023 [facility] Start: 08-26-2023 [facility] Start: 08-26-2023 Bacteria identified in Urine by Culture [facility] Start: 12-20-2022 [facility] Start: 12-20-2022 Bacteria identified in Urine by Culture Urine Culture [facility] Start: 08-22-2022 [facility] Bacteria identified in Genital specimen by Aerobe culture [facility] Work Phone: Bacteria identified in Genital specimen by Aerobe culture [facility] Bacteria identified in Genital specimen by Aerobe culture [facility] Bacteria identified in Urine by Culture [facility] Chlamydia trachomati s DNA [Presence] in Unspecified specimen by LEV with probe detection [facility] Hepatitis C virus Ig G Ab [Presence] in Serum or Plasma by Immunoassay [facility] HIV 1+2 Ab+HIV1 p24 Ag [Presence] in Serum or Plasma by Immunoassay [facility] HIV-1/HIV-2 antigen/antibody combination immunoassay HIV-1 and HIV-2 antibodies Lab Routine 02/22/2025 2:20 PM EDT [facility] Work Phone: Measles virus IgG Ab [Units/volume] in Serum by Immunoassay [facility] Neisseria gonorrhoea e DNA [Presence] in Unspecified specimen by LEV with probe detection [facility] Patient Education [facility] Patient referral [facility] Reagin Ab [Presence] in Serum by RPR [facility] RPR W/RFX TO QUANT & TP ABS ([facility]) RPR W/RFX TO QUANT & TP ABS ([facility]) Lab Routine 02/22/2025 2:20 PM EDT [facility] Healthcare Thyroid stimulating immunoglobulins actual/normal in Serum [facility] Trichomonas vaginali s DNA [Presence] in Unspecified specimen by LEV with probe detection [facility] Immunizations Immunization Date Immunization Notes Care Provider Fa [facility] 04-28-2020 tetanus toxoid, redu julianne diphtheria toxoid, and acellular pertussis vaccine, adsorbed PHYSICIAN NO FAMILY [facility] Payers Date Payer Category Payer Self-pay [id number] 2023 Private Health Insurance [facility] [employer] [id number] 2023 Medicaid [id number] 2016 Unknown [id number] 2000 Unknown [id number] 2.16.840.1.737753.3.579.2. 593 2000 Unknown [id number] 2.16.840.1.610608.3.579.2. 173 2000 Unknown [id number] 2.16.840.1.523833.3.579.2. 1259 2000 Unknown [id number] 2.16.840.1.837805.3.579.2. 1259 2000 Unknown [id number] 2.16.840.1.910936.3.579.2. 1259 2000 Unknown [id number] 2.16.840.1.207630.3.579.2. 1259 2000 Unknown [id number] 2.16.840.1.644381.3.579.2. 1259 2000 Unknown [id number] 2.16.840.1.005293.3.579.2. 1259 2000 Unknown [id number] 2.16.840.1.984479.3.579.2. 1259 1959 Unknown [id number] 1959 Unknown [id number] Unknown [id number] Unknown Insurance No [facility] [id number] Unknown Regular Auto/Medical [id number] Unknown [id number] 2.16.840.1.640113.3.579.2. 531 Unknown [id number] 2.16.840.1.152524.3.579.2. 531 Unknown [id number] 2.16.840.1.559072.3.579.2. 531 Unknown [id number] 2.16.840.1.305147.3.579.2. 531 Unknown [id number] 2.16.840.1.505832.3.579.2. 531 Unknown [id number] 2.16.840.1.410089.3.579.2. 531 Unknown [id number] 2.16.840.1.090831.3.579.2. 531 Unknown [id number] 2.16.840.1.550754.3.579.2. 531 Unknown [id number] 2.16.840.1.517715.3.579.2. 531 Unknown [id number] 2.16.840.1.607693.3.579.2. 531 Social History Date Type Detail Facility Start: 11-10-2019 End: 02-22-2025 Tobacco smoking status SCIS Never smoked tobacco (finding) [facility] Start: 2000 Sex Assigned At Female F [facility] Start: 08-22-2022 End: 07-11-2024 Tobacco smoking status NHIS Smoker (finding) [facility] Start: 01-15-2024 Tobacco smoking status SCIS Current some day smoker [facility] Start: 09-26-2024 End: 02-28-2025 Sex Female (finding) [facility] Start: 02-22-2025 Tobacco use and exposure Smokeless tobacco non-user [facility] Start: 02-22-2025 End: 03-27-2025 Alcoholic beverage intake Ex-drinker (finding) [facility] Start: 02-22-2025 End: 03-21-2025 History of Social function [facility] Start: 02-22-2025 End: 03-21-2025 Tobacco use panel [facility] Start: 02-22-2025 Alcohol Comment Caffiene Intak e- Pt reports none due to chronic kidney stones [facility] Start: 02-04-2025 [facility] Start: 2000 Sex assigned at Not on file [facility] Start: 03-02-2025 Tobacco smoking status [facility] Smokes tobacco daily (finding) [facility] NEGATED: Highlighted row [facility] NEGATED: Highlighted row N [facility] Medical Equipment Procedure Code Equipment Code Equipment [...] of right ankle fracture diagnosed that [facility] ER. Patient has been weight-bearing for the [...] risks, alternatives, benefits, post op complications and rn long term care expectations were discussed including but not limited to: infection,bone infection,wound dehiscence hardware failure and irritation,wound dehiscence,delay union/mal union/non union of bone. RSDS,neuroma,duty limitations,DVT/PE, VA,nerve damage, scar, loss of sensation, swelling. Pt [...] current (date) Date: March 27, 2025 Rowdy Hnoeycutt DPM documented in this encounter [facility] 03-23-2025 Radiology Diagnostic study note [facility] Main [place] [address] [place] [address] Ultrasound Report Signed Patient: Beatris Mack MR#: [id number] : 2000 Acct:[id number] Age/Sex: 24 / F ADM Date: 5 Loc: Room: Type: [facility] Attending Dr: Shad Alamo DO Ordering Provider: [...] Bojorquez M.D. 03/23/2025 4:40 PM Dictation Location: [place] [address] Tech: Renetta Beck Transcribed By: RADHA 03/23/25 1640 Dictated By: Shaan Bojorquez DO 03/23/25 1634 Signed By: 03/23/[address] [facility] 03-21-2025 History of Present illness Narrative Patient: Beatris Mack : 2000 PCP: No primary care provider on file. SUBJECTIVE This is a 24 y.o. female that presents today for a chief complaint of right ankle fracture diagnosed that [facility] ER. Patient has been weight-bearing for the [...] Patient may continue with conservative treatments including hkds-ipx-vdumofx anti-inflammatories and other treatments suggested today. Patient may want to be scheduled for surgical intervention in the near future. Patient be scheduled in the near future for right fibular ORIF of fracture Rowdy Honeycutt DPM documented in this encounter [facility] 03-08-2025 Evaluation note Diagnosis Onset Date Resolution Fracture of lateral malleolus of right ankle noneactive March 08, 2025 2:12pm [facility] Work Phone: 1(667) 990-846606-05-2025 History of Present illness Narrative* Anuja Saab MD - 02/23/2025 5:28 PM EDT Low indicies documented in this encounterLakeland Regional [id number] Telephone encounter Note* Telephone Encounter - Nhi [...] Encouraged pt to call if symptoms worsen. [facility] [id number] Miscellaneous Notes* Telephone Encounter - Nhi Castro [...] Pt called, requesting labs be sent to [facility]. Labs sent * Telephone Encounter - Nhi [...] to go to hospital. documented in this encounterLakeland Regional [id number] Telephone encounter Note* Telephone Encounter - Nhi Castro RN - 02/22/2025 2:03 PM EDT Pt called, requesting labs be sent to [facility]. Labs sent [facility] [id number] Telephone encounter Note* Telephone Encounter - Nhi [...] severe cramping occurs to go to hospital. [facility] [id number] History of Present illness Narrative* Dayna Alvarado [...] MA 02/22/2025 9:27 AM documented in this encounterLakeland Regional [id number] NoteEducation Materials Obstetrics and Gynecology Trichomoniasis Trichomoniasis [...] . Your health care provider may recommend gemx-oaz-dlnbwed medicines or creams to help relieve itching or irritation. You may be tested for infection again 3 months after treatment. Follow these instructions at home: ? Take and use favj-xkj-lzwuxli and prescription medicines, including creams, only as [...] if necessary. This informatio (more content not included)...[facility] noteNo assessment information availableAshtabula County Medical Center Work Phone: Evaluation note* Diagnosis Anemia, unspecified type- Primary documented in this encounter [facility] HealthcareEvaluation note* Diagnosis Urinary tract infection without hematuria, site unspecified- Primary examination or test, positive result documented in this encounter [facility]* Diagnosis care, subsequent in first trimester Encounter for drug screening documented in this encounter [facility]* Diagnosis Closed fracture of proximal end of right fibula, unspecified fracture morphology, initial encounter- Primary documented in this encounter [facility]* Diagnosis Closed fracture of proximal end of right fibula, unspecified fracture morphology, initial encounter- Primary documented in this encounter [facility] Dis[facility] instructions Additional Instructions Do not have sexual intercourse for at least 2 weeks, this includes oral sex You need to use condoms Right all your sexual partners and their sexual partners must be treated Do not have sex again and said everyone has been treated or you will pass disease back in forth You may call [phone] for your results in 3 days Please follow-up with Dr. Saab office Is important that you take your antibiotic as instructed until gone Please return here if you develop any abdominal pain, vaginal bleeding, increased discharge or any other concernAs[facility]abula [facility] Work Phone: Hospital Discharge instructions Additional Instructions If your symptoms return/worsen or you develop any further concerns or symptoms please see your doctor or return to the emergency department immediately. Please be sure to follow-up with the results of your tests.[facility] Work Phone: Hospital Discharge instructions Additional Instructions If you end up having bacterial vaginosis or any sexually transmitted infections, we will call you and prescribe appropriate antibiotics. Follow-up with your GEODETIC TECHNICIAN physician for any persistent symptoms in 5 to 7 days.[facility] Work Phone: Hospital Discharge instructions Additional Instructions If your symptoms return/worsen or you develop any further concerns or symptoms please see your doctor or return to the emergency department immediately.[facility] Work Phone: Reason for referral (narrative)No reason for referral information availableOhiohealth [facility]field [facility] Work Phone: Summary Purpose Family [...] section and content) DATE CREATED AUTHOR 05/23/2019 [facility] DATE CREATED AUTHOR AUTHOR'S ORGANIZ ATION 06/19/2020 [facility] DATE CREATED AUTHOR AUTHOR'S ORGANIZ ATION 09/12/2021 [facility] DATE CREATED AUTHOR AUTHOR'S ORGANIZ ATION 08/06/2022 [facility] DATE CREATED AUTHOR AUTHOR'S ORGANIZ ATION 07/21/2024 [facility] DATE CREATED AUTHOR AUTHOR'S ORGANIZ ATION 03/26/2025 [facility] DATE CREATED AUTHOR AUTHOR'S ORGANIZ ATION 03/31/2025 [facility] EPIC Care Teams (unrecognized sec tion [...] Status: Active Member Role Status Dates Services [facility] Primary Care Provider Ac tive Team Status: Inactive Member Role Status Dates Shad Alamo DO Attending Provider Active St art: February 15, 2025 End: February 15, 2025 Services [facility] Primary Care Provider Ac tive Start: February 15, 2025 End: February 15, 2025 Lime Vat Tender Relationship Specialty Start Date End Date Ivy Corbin NP [address] [place] [address] [facility] 03/21/24 Lime Vat Tender Relationship Specialty Start Date End Date Ivy Corbin BAND INSTRUMENT REPAIRER [address] [place] [address] PCP [facility] 03/21/24 Team Status: Inactive Member Role Status Dates Services [facility] Primary Care Provider Ac tive Start: February 22, 2025 End: February 22, 2025 Anuja Saab MD Attending Provider Active St art: February 22, 2025 End: February 22, 2025 Lime [employer]at Tender Relationship Specialty Start Date End Date Ivy Corbin BAND INSTRUMENT REPAIRER [address] [place] [address] [facility] 03/21/24 Lime Vat Tender Relationship Specialty Start Date End Date Ivy Corbin BAND INSTRUMENT REPAIRER [address] [place] [address] [facility] 03/21/24 Lime Vat Tender Relationship Specialty Start Date End Date Ivy Corbin NP [address] [place] [address] [facility] 03/21/24 Team Status: Inactive Member Role Status Dates Services [facility] Primary Care Provider Ac tive Start: February 23, 2025 End: February 23, 2025 Anuja Saab MD Attending Provider Active St art: February 23, 2025 End: February 23, 2025 Lime Vat Tender Relationship Specialty Start Date End Date Ivy Corbin BAND INSTRUMENT REPAIRER [address] [place] [address] [facility] 03/21/24 Lime Vat Tender Relationship Specialty Start Date End Date Ivy Corbin BAND INSTRUMENT REPAIRER [address] [place] [address] PCP [facility] 03/21/24 Team Status: Inactive Member Role Status Dates Services [facility] Primary Care Provider Ac tive Start: February 28, 2025 End: February 28, 2025 Aura Brown APRN Emergency Provider Active Start: February 28, 2025 End: February 28, 2025 Lime Vat Tender Relationship Specialty Start Date End Date Ivy Corbin BAND INSTRUMENT REPAIRER [address] [place] [address] PCP [facility] 03/21/24 Lime Vat Tender Relationship Specialty Start Date End Date Ivy Corbin NP [address] [place] [address] PCP [facility] 03/21/24 Team Status: Inactive Member Role Status Dates Shad Alamo DO Primary Care Provider Active Start: February 01, 2025 End: February 01, 2025 Shad Alamo DO Attending Provider Active St art: February 01, 2025 End: February 01, 2025 Team Status: Inactive Member Role Status Dates [facility] Primary Care Provider Ac tive Start: March 02, 2025 End: March 02, 2025 Brock Mims APRN Emergency Provider Active Start: March 02, 2025 End: March 02, 2025 Team Status: Inactive Member Role Status Dates [facility] Primary Care Provider Ac tive Start: March 08, 2025 End: March 08, 2025 Lluvia Ellis APRN Attending Provider Active Sta rt: March 08, 2025 End: March 08, 2025 Team Status: Inactive Member Role Status Dates [facility] Primary Care Provider Ac tive Start: March 21, 2025 End: March 21, 2025 Anuja Saab MD Attending Provider Active St art: March 21, 2025 End: March 21, 2025 Team Status: Inactive Member Role Status Dates [facility] Primary Care Provider Ac tive Start: March 23, 2025 End: March 23, 2025 hSad Alamo DO Attending Provider Active St art: March 23, 2025 End: March 23, 2025 Lime Vat Tender Relationship Specialty Start Date End Date Ivy Corbin NP [address] [place] [address] PCP - [facility] 03/21/24 Unallocated, Shawna ProviderMD [address] [place] [address] PCP - General Family Medicine 03/22/25 Lime Vat Tender Relationship Specialty Start Date End Date Ivy Corbin NP [address] [place] [address] PCP - [facility] 03/21/24 Unallocated, Shawna ProviderMD [address] [place] [address] PCP - General Family Medicine 03/22/25 Goals [...] BE BASED ON THE PRIMARY CLINICAL RECORDS. [employer] [facility]. provides no warranty or guarantee of the accuracy or completeness of information in this document.
[2025-04-01] MEDS: SENNOSIDES 8.6 MG TABLET PO (21:11)
[2025-04-01] MEDS: ACETAMINOPHEN 325 MG TABLET 650 MG PO (21:11)
[2025-04-01] MEDS: OXYCODONE HCL 5 MG TABLET PO (21:11)
[2025-04-01] MEDS: 0.9 % SODIUM CHLORIDE 1,000 ML 125 ML IV (21:12)
[2025-04-02] VITALS: BP 122/63; PULSE 105; TEMP 36.8; O2SAT 97
[2025-04-02] MEDS: OXYCODONE HCL 5 MG TABLET PO ×2 (00:55→07:27)
[2025-04-02] MEDS: HYDROMORPHONE HCL 1 MG/ML CARTRIDGE 0.5 MG IVP (00:58)
[2025-04-02] MEDS: 0.9 % SODIUM CHLORIDE 1,000 ML 125 ML IV (03:48)
[2025-04-02] MEDS: KETOROLAC TROMETHAMINE 30 MG/ML VIAL 15 MG IVP ×2 (03:49→14:08)
[2025-04-02 03:58] VITALS: BP 139/83; PULSE 122; TEMP 38.7; O2SAT 96
[2025-04-02 06:58] LABS: Hematocrit 34.4 % (36.0-48.0); Hemoglobin 10.9 g/dL (12.0-16.0); Mean Corpuscular HGB Conc 31.7 g/dL (29.9-35.2); Mean Corpuscular Hemoglobin 29.3 pg (26.7-34.0); Mean Corpuscular Volume 92.5 fL (81.0-99.0); Platelet Count 252 10^3/uL (150-450); Red Blood Count 3.72 10^6/uL (4.20-5.40); White Blood Count 14.2 10^3/uL (4.0-11.0)
[2025-04-02 07:14] LABS: Alanine Aminotransferase 21 U/L (14-59); Albumin Globulin Ratio 0.7; Albumin Level 2.6 g/dL (3.4-5.0); Alkaline Phosphatase 71 U/L (46-116); Anion Gap 14.3; Aspartate Amino Transferase 12 U/L (15-37); Blood Urea Nitrogen 10.0 mg/dL (7.0-18.0); Calcium 8.9 mg/dL (8.5-10.1); Carbon Dioxide 23.9 mmol/L (21.0-32.0); Chloride 106 mmol/L (98-107); Estimated GFR (African America >60 (>=60 mL/min/1.73m^2); Estimated GFR (Non-African Ame >60 (>=60 mL/min/1.73m^2); Globulin 3.8 g/dL; Glucose 117 mg/dL (74-106); Potassium 4.2 mmol/L (3.5-5.1); Sodium 140 mmol/L (136-145); Total Protein 6.4 g/dL (6.4-8.2)
[2025-04-02 07:35] VITALS: BP 122/82; PULSE 102; TEMP 37.1; O2SAT 96
[2025-04-02 07:55] LABS: Basophils Abs Manual 0.00 10^3/uL (0.00-0.10); Basophils Percent Manual 0.0 % (0.2-2.0); Eosinophils Absolute Manual 0.00 10^3/uL (0.00-0.70); Eosinophils Percent Manual 0.0 % (0.9-7.0); Lymphocytes Absolute Manual 0.99 10^3/uL (1.20-3.80); Lymphocytes Percent Manual 7.0 % (20.5-60.0); Monocytes Absolute Manual 2.27 10^3/uL (0.30-0.80); Monocytes Percent Manual 16.0 % (1.7-12.0); Segmented Neut Absolute Manual 10.93 10^3/uL (1.4-6.5); Segmented Neutrophils % Manual 77.0 (43.0-75.0)
--- NOTE | 2025-04-02 09:45 | PM.HP ---
HPI H&P: HPI History of Present Illness Chief complaint: BACK PAIN, BLOOD IN URINE, PYELONEPHRITIS Narrative: Mrs. Andujar is a 24-year-old female who came in with bilateral flank pain mostly on the right side. No fever or chills. She reported that her urine is dark and frequent urination. Patient reported a prior history of kidney stone. CAT scan of the abdomen showed evidence of stranding suggestive of pyelonephritis. No obstructing stone. Patient also had evidence of sepsis manifested by tachycardia, hypotension, fever and leukocytosis. No chest pain. No cough or congestion. Opioid HPI Opioid Management Most Recent Pain and Opioid Data: Last Pain Scale 9 Today, 07:27 Last Pain Assessment 04/01/25, 21:15 Last ED Pain Assessment 04/01/25, 18:01 Last MAR Pain Assessment 04/01/25, 16:59 Last ORT Total Score 1 04/01/25, 20:25 Last ORT Risk Category Low Risk 04/01/25, 20:25 Review of Systems ROS Status of ROS 10 or more systems reviewed and unremarkable except as noted in history and below PFSH PFSH Medical History Vapes nicotine containing substance ?Z72.0 - Tobacco use (ICD-10) Family History (Updated 04/01/25 @ 20:40 by Elisabeth Gurrola RN) Other Patient denies significant medical history Social History (Updated 04/01/25 @ 20:40 by Elisabeth Gurrola RN) Smoking status: Current every day smoker Do you use any of these nicotine containing products: vaping products Non-prescribed substance use: denies use Known occupational exposures/hazards: No Highest level of school completed/degree received: high school graduate Do you want help with school or training: No Little interest or pleasure in doing things: not at all Feeling down, depressed, or hopeless: not at all Feel stressed/tense/nervous/anxious/difficulty sleeping: only a little Due to disability, difficulty making decisions: No Meds Home Medications and Allergies Home Medications ?Medication ?Instructions ?Recorded ?Confirmed ?Type oxycodone-acetaminophen 5 mg-325 1 tab PO Q6H PRN pain 07/12/24 04/02/25 History mg tablet ferrous sulfate 325 mg (65 mg 325 mg PO TID 04/01/25 04/02/25 History iron) tablet,delayed release hydroxyzine HCl 25 mg tablet 25 mg PO .QD 04/01/25 04/02/25 History sertraline 50 mg tablet 50 mg PO .QD 04/01/25 04/02/25 History Allergies Allergy/AdvReac Type Severity Reaction Status Date / Time Penicillins AdvReac Mild Rash Verified 11/15/24 04:04 Exam Constitutional Vital Signs, click to edit/add: Last Vital Signs Temp 98.7 F 04/02/25 07:35 Pulse 102 H 04/02/25 07:35 Resp 16 04/02/25 07:35 BP 122/82 04/02/25 07:35 Pulse Ox 96 04/02/25 07:35 O2 Del Method Room Air 04/02/25 07:35 Results Labs Labs: Short CBC 04/01/25 04/02/25 Range/Units 17:00 06:27 WBC 16.6 H 14.2 H (4.0-11.0) 10^3/uL Hgb 12.6 10.9 L (12.0-16.0) g/dL Hct 38.1 34.4 L (36.0-48.0) % Plt Count 301 252 (150-450) 10^3/uL BMP 04/01/25 04/02/25 17:00 06:27 Sodium 139 140 Potassium 4.1 4.2 Chloride 102 106 Carbon Dioxide 26.0 23.9 BUN 13.0 10.0 Creatinine 0.87 0.70 Glucose 112 H 117 H Calcium 9.7 8.9 Liver Function 04/01/25 04/02/25 Range/Units 17:00 06:27 Total Bilirubin 0.7 0.6 (0.2-1.0) mg/dL AST 17 12 L (15-37) U/L ALT 24 21 (14-59) U/L Alkaline Phosphatase 79 71 (46-116) U/L Albumin 3.4 2.6 L (3.4-5.0) g/dL Urine 04/01/25 Range/Units 17:00 Urine Color Yellow (YELLOW) Urine Clarity Clear (CLEAR) Urine pH 6.5 (5.0-9.0) Ur Specific [place] 1.020 (1.005-1.025) Urine Protein >=300 A (NEG/TRACE) mg/dL Urine Glucose (UA) Negative (NEGATIVE) mg/dL Assessment and Plan Assessment and Plan (1) Pyelonephritis: (2) Urinary tract infection: (3) Sepsis: Plan Sepsis present on admission manifested by tachycardia, hypotension, leukocytosis in the setting of infection Pyelonephritis. I had accepted to admit patient to the medical floor. Sepsis protocol was followed including blood and urine culture, IV fluid infusion and antibiotic treatment. Monitor symptomology Depression No exacerbation or decompensation, continue Zoloft DVT prophylaxis Lovenox
[2025-04-02] MEDS: SERTRALINE HCL 50 MG TABLET PO (10:15)
[2025-04-02] MEDS: LEVOFLOXACIN IN DEXTROSE 5 % 750 MG/150 ML PREMIX 100 MG IV (10:15)
[2025-04-02 13:11] VITALS: BP 125/76; PULSE 106; TEMP 37.2; O2SAT 95
[2025-04-02] MEDS: ACETAMINOPHEN 325 MG TABLET 650 MG PO ×2 (13:14→20:39)
[2025-04-02] MEDS: PROMETHAZINE HCL 12.5 MG in 0.9 % SODIUM CHLORIDE 50 ML 204 MG IV (14:05)
[2025-04-02 19:44] VITALS: BP 100/64; PULSE 80; TEMP 36.7; O2SAT 98
[2025-04-03] VITALS: BP 114/71; PULSE 94; TEMP 37.9; O2SAT 97
[2025-04-03 00:38] VITALS: TEMP 37.9
[2025-04-03] MEDS: KETOROLAC TROMETHAMINE 30 MG/ML VIAL 15 MG IVP (00:38)
[2025-04-03] MEDS: ACETAMINOPHEN 325 MG TABLET 650 MG PO (00:38)
[2025-04-03 04:00] VITALS: BP 133/80; PULSE 72; TEMP 36.4; O2SAT 98
[2025-04-03 07:49] VITALS: BP 132/84; PULSE 93; TEMP 37.7; O2SAT 98
[2025-04-03] MEDS: 0.9 % SODIUM CHLORIDE 250 ML 10 ML IV (08:31)
[2025-04-03] MEDS: PROMETHAZINE HCL 12.5 MG in 0.9 % SODIUM CHLORIDE 50 ML 204 MG IV (08:31)
[2025-04-03] MEDS: LEVOFLOXACIN IN DEXTROSE 5 % 750 MG/150 ML PREMIX 100 MG IV (08:32)
[2025-04-03] MEDS: SERTRALINE HCL 50 MG TABLET PO (08:33)
--- NOTE | 2025-04-03 08:45 | CM.NOTE ---
Rounds made with Dr. Pino, awaiting cultures. No discharge today, continue IV antibiotics.
--- NOTE | 2025-04-03 09:21 | PM.PN ---
Progress Note: Subjective Subjective Interval history: Patient is feeling better. Her urine is not as dark as before. Improvement of abdominal and flank tenderness Exam Narrative Exam Narrative: [pt is awake and alert. oriented to place, time and person HEENT: [place] conjunctiva and NL buccal mucosa Neck: Supple, no tenderness Endocrine: No Thyromegaly. Vascular: No JVD or carotid bruit. Lymphatic: No cervical lymphadenopathy. Chest: CTA no DTP. Heart RRR, no extra sound or murmur. Abd: Soft, improvement in the resolution of her flank discomfort. LE: No cyanosis or clubbing, no varices or edema. Neuro: A A O. Nl speech, comprehension and attention. Nl and symetrical motor and tone examination through out. []] Constitutional Vital Signs, click to edit/add: Last Vital Signs Temp 99.9 F 04/03/25 07:49 Pulse 93 H 04/03/25 07:49 Resp 16 04/03/25 08:39 BP 132/84 04/03/25 07:49 Pulse Ox 98 04/03/25 07:49 O2 Del Method Room Air 04/03/25 07:49 Progress Note: A&P Assessment and Plan (1) Pyelonephritis: (2) Urinary tract infection: (3) Sepsis: Plan Sepsis present on admission manifested by tachycardia, hypotension, leukocytosis in the setting of infection Pyelonephritis. I had accepted to admit patient to the medical floor. Sepsis protocol was followed including blood and urine culture, IV fluid infusion and antibiotic treatment. Monitor symptomology Continue to biotic pending final culture report. Depression No exacerbation or decompensation, continue Zoloft DVT prophylaxis Lovenox
[2025-04-03 11:30] VITALS: BP 104/68; PULSE 80; TEMP 36.8; O2SAT 96
[2025-04-03 16:01] VITALS: BP 128/76; PULSE 82; TEMP 36.9; O2SAT 96
--- NOTE | 2025-04-04 08:10 | P.DS_ITS ---
DS: Providers Provider Date of admission: 04/01/25 20:20 Primary care physician: Sahd Alamo DO DS: Diagnosis Discharge Diagnosis (1) Pyelonephritis: (2) Urinary tract infection: (3) Sepsis: Plan As listed above and others that are not listed DS: Summary Hospital Course Hospital Course: Mrs. Andujar is a 24-year-old female who came in with bilateral flank pain and was found to have the following Sepsis present on admission manifested by tachycardia, hypotension, leukocytosis in the setting of infection Pyelonephritis. I had accepted to admit patient to the medical floor. Sepsis protocol was followed including blood and urine culture, IV fluid infusion and antibiotic treatment. Monitor symptomology Continue to biotic pending final culture report. Culture came back positive for E. coli which is pansensitive. Patient is requesting to be discharged home and feeling great. Patient will be discharged home on Cipro 500 twice a day for 7 days. Patient was instructed not to take hydroxyzine. Patient was instructed not to breast-feed and to prevent for the next 10 days. Depression No exacerbation or decompensation, continue Zoloft DVT prophylaxis Lovenox Time Spent with Patient Time attestation: Total time spent providing and/or coordinating discharge services: Time spent: less than 30 minutes Exam Constitutional Vital Signs, click to edit/add: Last Vital Signs Temp 98.4 F 04/03/25 16:01 Pulse 82 04/03/25 16:01 Resp 16 04/03/25 16:01 BP 128/76 04/03/25 16:01 Pulse Ox 96 04/03/25 16:01 O2 Del Method Room Air 04/03/25 16:01 DS: Data Data Completed and Pending Labs on day of discharge: Preliminary micro results at discharge 04/01/25 18:30 Blood Culture Result 2 - Preliminary Blood - Left Wrist NO GROWTH AT 36-48 HOURS. FINAL TO FOLLOW. 04/01/25 18:20 Blood Culture Result 1 - Preliminary Blood - Left Antecubital NO GROWTH AT 36-48 HOURS. FINAL TO FOLLOW. Discharge Plan Discharge Disposition: Home, Self-Care Assessment: Please do not breast feed while you are taking antibiotics and for 7 days after than. Please use precautions while you are taking this antibiotic s and for 7 days after that as this antibiotic can cause harm to fetus Please return back to ER if you develop fever, chills, worseing pain in flanks Do not take Hydroxizine while taking new antibiotic pill Discharge Medications: New ciprofloxacin HCl [Cipro] 500 mg tablet 500 mg PO BID Qty: 14 0RF Rx Instructions: Start taking this medicine on morning Continued oxycodone-acetaminophen 5-325 mg tablet 1 tab PO Q6H PRN (Reason: pain) ferrous sulfate 325 mg (65 mg iron) tablet,delayed release (DR/EC) 325 mg PO TID sertraline 50 mg tablet 50 mg PO .QD Discontinued hydroxyzine HCl 25 mg tablet 25 mg PO .QD Activity: resume usual activities as tolerated Activity Detail: Please do not breast feed while you are taking antibiotics and for 7 days after than. Please use precautions while you are taking this antibiotic s and for 7 days after that as this antibiotic can cause harm to fetus Please return back to ER if you develop fever, chills, worseing pain in flanks Do not take Hydroxizine while taking new antibiotic pill Diet: advance to your usual diet Print Language: Macedonian Patient Instructions: Kidney Infection (DC), Sepsis (DC) Forms: Portal Instructions Follow Up Appointments: Follow up with you primary care physician in 7-10 days Discharge Date/Time: 04/03/25 18:26
--- NOTE | 2025-04-04 08:56 | PC.NURSE ---
Follow up appt on 04/07 @ 10:45am with [facility] / Dr. Alamo [phone]
--- NOTE | 2025-04-04 14:48 | CM.DCFOLLOWU ---
1st attempt 04/04/25, no answer
--- NOTE | 2025-04-04 14:56 | CM.DCFOLLOWU ---
Person spoke with:patient How are you feeling?feeling fine, has nausea How is your pain?none Did you understand your discharge instructions?yes Do you have any questions about your discharge instructions?no Were you given any prescriptions at discharge?yes Were you able to get your prescriptions filled?yes Do you understand how to take your medications as ordered?yes Do you have any questions about your follow up appointment and do you plan to keep your follow up appointment?no questions, will follow up Is there anything else that you would like to discuss?no Questions/Comments/Concerns/Other:none
== END 2025-04-03 18:26 | disposition home or self-care (01) | DRG 720 ==
LOC: ER 18:20 → MS 20:36
PROVIDERS: Admitting Provider Internal Medicine; Emergency Provider Emergency Medicine; PCP Student in an Organized Health Care Education/Training Program; Visit Provider Internal Medicine
DX: A41.51 Sepsis due to Escherichia coli [E. coli] (principal); N12 Tubulo-interstitial nephritis, not specified as acute or chronic; N39.0 Urinary tract infection, site not specified; F32.A Depression, unspecified; Z87.442 Personal history of urinary calculi; F17.290 Nicotine dependence, other tobacco product, uncomplicated; Z98.890 Other specified postprocedural states
CPT/HCPCS: 36415; 74176; 80053; 81001; 83605; 84703; 85007; 85025; 85027; 87040; 87086; 87088; 87186; 96361; 96365; 96375; 99285; J0744; J1171; J1885; J2405; J2550

== ENCOUNTER 2025-08-12 09:21 | Emergency (ER) | payer OTHER, SELFPAY ==
[2025-08-12 09:34] VITALS: BP 142/90; PULSE 80; O2SAT 99; BMI 29.8
--- OUTSIDE RECORDS SUMMARY | 2025-08-12 09:59 | XMS_ITS | CCD ---
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 Trichomonas; Translations: [Trichomoniasis, unspecified]31-73-9164RukgiaotEwbsb injuries and conditions due to external causes (18 sources)Closed injury of head; Translations: [Unspecified injury of head, initial encounter]31-14-1838JahzptciAohgc non-traumatic joint disorders (3 sources)Pain in left knee; Translations: [PAIN IN LEFT KNEE]Onset: 06-07-2022 EpisodicOther non-traumatic joint disorders (1 source)Pain in right ankle and joints of right foot; Translations: [Pain in right ankle and joints of right foot]Onset: 47-11-6113VbznhwffYrzeb nutritional; endocrine; and metabolic disorders (2 sources)Body mass index (BMI) 27.0-27.9, adultOnset: 105032-79-5830 EpisodicOther and delivery including normal (20 sources)First trimester ; Translations: [Encounter for supervision of normal , unspecified, first trimester]Onset: EpisodicOther screening for suspected conditions (not mental disorders or infectious disease) (20 sources)Clinical finding absent; Translations: [Suspected ingested foreign body not found after observation]Onset: 320595-11-4456IkxwffxgNsnmv skin disorders (14 sources)Xeroderma; 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]43-18-1742EnhfonzfXquvorxl codes; unclassified (18 sources)Gestation period, 13 weeks; Translations: [13 weeks gestation of ]88-19-9797IbadtsseObaaqjzv codes; unclassified (18 sources)H/O: ; Translations: [History of ]10-02-2019 EpisodicResidual codes; unclassified (17 sources)Gestation period, 38 weeks; Translations: [38 weeks gestation of ]64-76-4217EeqwnyfwUjtoktku codes; unclassified (4 sources)Patient encounter status; Translations: [Procedure and treatment not carried out due to patient leaving prior to being seen by health care provider] 04-14-4308JgshkgxpBpfevhmshm (except in labor) (18 sources)Sepsis; Translations: [Sepsis, unspecified organism]01-26-2019 EpisodicSpondylosis; intervertebral disc disorders; other back problems (19 sources)Thoracic back pain; Translations: [Pain in thoracic spine]Onset: 499869-35-8882YvvustsdAchratnxl-nvernig disorders (1 source)Nicotine dependence, cigarettes, uncomplicated; Translations: [NICOTINE DEPEND CIGARETTES UNCOMP]Onset: 86-99-7821PqbqrlmCpqoggttgfe injury; contusion (19 sources)Contusion of knee; Translations: [Contusion of left knee, initial encounter]Onset: 566914-90-2712MngdxvvoWrbiuazaasln (10 sources)OB RemindersOnset: 186316-88-9216Zhyhfem tract infections (20 sources)Acute cystitis; Translations: [Urinary tract infectious disease] 96-62-3940NzzbbzuwBrpot infection (2 sources)Human papilloma virus infection; Translations: [Papillomavirus as the cause of diseases classified elsewhere]58-20-7297Mlyrmgmc Past or Other Problems Problem ClassificationProblemDateDocumented DateEpisodic/ChronicAbdominal pain (20 sources)Abdominal pain in ; Translations: [Left flank pain]Onset: 462554-58-0689DdgjaphdRjofbctpbhqr (2 sources)Closed fracture of upper end of right -86-3946Cscnnjfdcpku (1 source)dn (chief complaint)Onset: 07-12-2025 Results Test NameValueInterpretationReference RangeFacilityXR Ankle - right 3 Viewson 65-31-8486Dudjvya Result: Plate fixation intact with fixer fixation intact with well aligned anatomical fixation with fracture site apparentNOHospital Sisters [facility] Rad[facility] Study observation (narrative)NOMS HealthcareUrine Cultureon 04-01-2025 Bacteria identified Cx Nom (U)ORGANISM: Escherichia coli (O:ESCCOL) [place] Count >100,000 Aerobic JOSE Charge (NMIC56) SUSCEPTIBILITY ORGANISM: O:ESCCOL ANTIBIOTIC INTERPRETATION JOSE Amikacin S <16 Amoxacillin/K Clavulanate S <8 Ampicillin S <8 Ampicillin/Sulbactam S <4 Aztreonam S <4 Cefazolin S <2 Cefepime S <2 Ceftazidime S <1 Ceftazidime/Avibactam S <4 Ceftolozane/Tazobactam S <2 Ceftriaxone S <1 Cefuroxime S <4 Ciprofloxacin S <0.25 Ertapenem S <0.5 Gentamicin S <2 Levofloxacin S <0.5 Meropenem S <1 Meropenem/Vaborbactam S <2 Nitrofurantoin S <32 Piperacillin/Tazobactam S <8 Tetracycline S <4 Tigecycline S <2 Tobramycin S <2 Trimethoprim/Sulfamethoxazole S <0.5 S = SUSCEPTIBLE I = INTERMEDIATE R [...] RESISTANT TO ALL B-LACTAM DRUGS. PERFORMED BY: [place] [address] PATHOLOGIST TIME CLERK CALLI JAFFE M.D.[facility] Physician GroupComment on above: Performed By: #### CUU #### [place] [address] USAUS thyroidon 90-21-7598EG thyroidZANESVILLE [facility] Main [place] [address] [place] [address] Ultrasound Report Signed Patient: Beatris Mack MR#: [id number] 549 : 2000 Acct:[id number] Age/Sex: 24 / F ADM Date: 03/23/25 Loc: Room: Type: [facility] Attending Dr: Shad Alamo DO Ordering [...] Bojorquez M.D. 03/23/2025 4:40 PM Dictation Location: [employer] Tech: Renetta Beck Transcribed By: [facility] 03/23/25 1640 Dictated By: Shaan Bojorquez DO 03/23/25 1634 Signed By: 03/23/[address] [place], [place] [address]Choriogonadotropin.beta subunit [Units/volume] in Serum or PlasmaOrdered By: LEN Saab on 03-21-2025 HCG.beta subunit Qn22.13 m[IU]/mLDetwiler Memorial HospitalComment on above:Approximate Approximate hCG Gestational Age Range (mIU/ml) (weeks)0.2-1 5- 50 1-2 50-500 2-3 100-5,000 3-4 500-10,000 4-5 1,000-50,000 5-6 10,000-100,000 6-8 15,000-200,000 8-12 10,000-100,000HCG,Quantitativeon 03-21-2025 HCG,Yhffhjkykorh79.13 m[iU]/mLNAtrium Health Physician Merit Health RankinComment on above:Result Comment: Approximate Approximate hCG Gestational Age Range (mIU/ml) (weeks) 0.2-1 5-50 1-2 50-500 2-3 100-5,000 3-4 500-10,000 4-5 1,000-50,000 5-6 10,000-100,000 6-8 15,000-200,000 -12 10,000-100,000 PERFORMED BY: [place] [address] PATHOLOGIST TIME CLERK CALLI JAFFE M.D.Performed By: #### HCGQNT #### [place] [id number] USANo Panel Informationon 76-01-6400Cmzuwuiwh Study observation (narrative)NOMS HealthcareXR Ankle - right 3 Viewson 03-21-2025 Imaging Result: Right distal fibular oblique fracture with slight posterior displacement and slight shorteningNONortheast Regional Medical CenterNOCT HealthcareXR Foot - right 2 Viewson 19-89-3212Vflflvy Result: Negative fractures identified normal foot morphologyNONortheast Regional Medical CenterNOCT HealthcareXR ankle RT min 3V*on 59-60-7138KS ankle RT min 3V*[facility] Main [place] [address] [place] [address] XRay Report Signed Patient: Beatris Mack MR#: [id number] 549 : 2000 Acct:[id number] Age/Sex: 24 / F ADM Date: 03/02/25 Loc: ER Room: Type: [facility] ER Attending Dr: Copies to: Brock Mims [...] Sullivan M.D. 03/02/2025 5:34 PM Dictation Location: [place] [address] Transcribed By: RADHA 03/02/25 1734 Dictated By: Kevin Sullivan MD 03/02/25 1733 Signed By: 03/02/[address] [place] [address] Physician GroupMISC LABon 24-96-9924QIMR LAB NOMS [facility] - TrumbullComment on above:See report. Scanned copy available in EMR. FASTING.CHERYL [facility] Test Name: DRUG SCREEN 17 W/CONF TEST#[id number] County Hospital HEPATITIS B SURFACE ANTIGEN ([facility])on 67-34-5469GCLZT SCREENNegativeNegativeNOCT HealthcareComment on above:Performed at: [facility] Lab[address] [id number] Flake Cutter Operator: Shai Marmolejo PhD, Phone: [phone] Hcv antibody rfx to quant pcron 98-03-5903SZRYEDXPL C VIRUS ANTIBODYNon-Reactive Non ReactiveNOCT HealthcareINTERPRETATION HEPATITIS CComment.[facility] Comment on above:Not infected with HCV unless early or acute infection is suspected (which may be delayed in an immunocompromised individual), or other evidence exists to indicate HCV infection. No Panel Informationon 68-13-8710WAXRHBP.[facility] Choriogonadotropin.beta subunit [Units/volume] in Serum or PlasmaOrdered By: THANH Saab on 06-28-2571NTR.beta subunit QnChoriogonadotropin.beta subunit [Units/volume] in Serum or PlasmaDetwiler Memorial Hospital Comment on above:Approximate Approximate hCG Gestational Age Range (mIU/ml) (weeks)0.2-1 5-50 1-2 50-500 2-3 100-5,000 3-4 500-10,000 4-5 1,000-50,000 5-6 10,000-100,000 6-8 15,000-200,000 8-12 10,000-100,000HCG.beta subunit Qn463.90 m[IU]/mLDetwiler Memorial HospitalComment on above:Approximate Approximate hCG Gestational Age Range (mIU/ml) (weeks)0.2-1 5-50 1-2 50-500 2-3 100-5,000 3-4 500-10,000 4-5 1,000-50,000 5-6 10,000-100,000 6-8 15,000-200,000 8-12 10,000-100,000HCG,Quantitativeon 21-44-9629OZN,Gliqyfbkvmxh753.90 m[iU]/mL NormalThe [facility] Physician GroupComment on above:Result Comment: Approximate Approximate hCG Gestational Age Range (mIU/ml) (weeks) 0.2-1 5-50 1-2 50-500 2-3 100-5,000 3-4 500-10,000 4-5 1,000-50,000 5-6 10,000-100,000 6-8 15,000-200,000 8-12 10,000-100,000 PERFORMED BY: [facility] [address] [place] [address] PATHOLOGIST TIME CLERK CALLI JAFFE M.D.Performed By: #### TSH3 wRFLX, T4F, CBC, CMP #### [place] [address] USAhCG, quantitative, pregnancyon 65-16-9615RIJ,QUANTITATIVE 463.9 m[iU]/mLNOMS HealthcareComment on above:Approximate Approximate hCG Gestational Age Range (mIU/ml) (weeks) 0.2-1 5-50 1-2 50-500 2-3 100-5,000 3-4 500-10,000 4-5 1,000-50,000 5-6 10,000-100,000 6-8 15,000-200,000 8-12 10,000-100,000 NOMS HealthcareBacteria [Presence] in Urine by AutomatedOrdered By: LEN Saab on 38-76-9469Qzylighm Auto Ql (U)Bacteria [Presence] in Urine by AutomatedNone SeenDetwiler Memorial HospitalBacteria Auto Ql (U)None seen [HPF]None [facility] HospitalBasophils Auto (Bld) [#/Vol] Ordered By: LEN Saab on 04-96-6411Uxwrfoknh (Bld) [#/Vol]Automated basophil count0.0-0.2FOhio State Harding HospitalBasophils [#/volume] in Blood by Automated countOrdered By: LEN Saab on 87-24-3071Ibktbzcjq (Bld) [#/Vol]0.0 10*3/uLNormal0.0-0.2FOhio State Harding HospitalComment on above:Order Comment: Reason for Exam Generalized anxiety disorderResult Comment: PERFORMED BY: [place] [address] PATHOLOGIST TIME CLERK CALLI JAFFE M.D.Performed By: #### TSH3 wRFLX, T4F, CBC, CMP #### [facility] [address] [place] [address] USABasophils/100 WBC Auto (Bld)Ordered By: LEN Saab on 93-42-9203Thwuakrtl/100 WBC (Bld)Automated basophil %.Detwiler Memorial HospitalBasophils/100 leukocytes in Blood by Automated count Ordered By: LEN Saab on 70-62-9419Xqguwpgsh/100 WBC (Bld)0.8 %Normal .Detwiler Memorial HospitalComment on above:Order Comment: Reason for Exam Generalized anxiety disorderPerformed By: #### TSH3 wRFLX, T4F, CBC, CMP #### [place] [address] USABilirubin Test strip Ql (U)Ordered By: LEN Saab on 29-27-2676Pakcqmhvr Ql (U)Bilirubin.total [Presence] in Urine by Test stripNegativeDetwiler Memorial HospitalBilirubin Ql (U)NegativeNegative Detwiler Memorial HospitalCB W Auto Differential panel (Bld)on 52-51-9276Klqmqylar (Bld) [#/Vol]0 10*3/uL0.0 - 0.2 10*3/uLNOMS Healthcare Basophils/100 WBC Manual cnt (Syn fld)0.8 %.NOMS HealthcareEosinophils (Bld) [#/Vol]0 10*3/uL0.0 - 0.45 10*3/uLNOMS HealthcareEosinophils/100 WBC Manual cnt (Syn fld)0.4 %.NOMS HealthcareErythrocyte distribution width (RBC) [Ratio]15.2 % 11.9 - 15.3 %NOMS HealthcareHematocrit (Bld) [Volume fraction]35.9 %34.0 - 46.4 %[facility] HospitalHemoglobin (Bld) [Mass/Vol]11.9 g/dL11.8 - 15.4 g/dLSt. Louis Children's HospitalLymphocytes (Bld) [#/Vol]2.2 10*3/uL1.00 - 4.8 10*3/uLNOMS Healthcare Lymphocytes/100 WBC Manual cnt (Syn fld)34.9 %.[facility]'s HospitalMCH (RBC) [Entitic mass]29.3 pg24.7 - 34.3 pgMercy Hospital JoplinHC (RBC) [Mass/Vol]33.1 g/dL32.0 - 35.0 g/dLSt. Louis Children's HospitalMCV (RBC) [Entitic vol]88.5 fL80 - 100 fLSt. Louis Children's Hospital Monocytes (Bld) [#/Vol]0.6 10*3/uL0.0 - 0.8 10*3/uLNOCT Healthcare Monocytes+Macrophages/100 WBC Manual cnt (Syn fld)8.8 %.[facility] Neutrophils (Bld) [#/Vol]3.5 10*3/uL1.8 - 7.7 10*3/uLNOCT Healthcare Neutrophils/100 WBC Manual cnt (Syn fld)55.1 %.[facility]'s HospitalNRBC0.1 /100{WBC}0 - 0.5 /100{WBC}[facility] HealthcarePlatelet mean volume (Bld) [Entitic vol]9.1 fL6.3 - 10.7 fLSt. Louis Children's HospitalPlatelets (Bld) [#/Vol]308 10*3/uL150 - 450 10*3/uLNONortheast Regional Medical CenterRBC LM.HPF (Urine sed) [#/Area]4.06 10*6/uL3.60 - 5.00 10*6/uLNOMS [facility] Special[facility] Hospital - TrumbullWBC (Bld) [#/Vol]6.4 10*3/uL3.8 - 11.6 10*3/uLNONortheast Regional Medical CenterWBC LM.HPF (Urine sed) [#/Area]6.4 10*3/uL3.8 - 11.6 10*3/uLNOMS Healthcare FASTING.JKWFIRPenn State Health Holy Spirit Medical CenterComplete Blood Count Auto Diffon 02-22-2025 Mean Corpuscular HGB Conc33.1 g/vQLluadv55.0-35.0[facility]ician Group Comment on above:Order Comment: Reason for Exam Generalized anxiety disorder Performed By: #### TSH3 wRFLX, T4F, CBC, CMP #### [facility] [address] [place] [address] USANRBC%0.1 /100{WBC}Normal0-0.5The [facility] Comment on above:Order Comment: Reason for Exam Generalized anxiety disorder Performed By: #### TSH3 wRFLX, T4F, CBC, CMP #### [facility] [address] [place] [address] USADipstick and Microscopicon 25-43-0060Vndqsoxf,UrineNone SeenNormalNone SeenThe [facility] Hospital Physician GroupComment on above:Order Comment: Reason for Exam Generalized anxiety disorderPerformed By: #### TSH3 wRFLX, T4F, CBC, CMP #### [place] [address] USABilirubin,UrineNegativeNormalNegativeThe [facility] Physician GroupComment on above:Order Comment: Reason for Exam Generalized anxiety disorderPerformed By: #### TSH3 wRFLX, T4F, CBC, CMP #### [facility] [address] [place] [address] USAGlucose Ql (U)NormalNormalNormalThe [facility] Physician GroupComment on above:Order Comment: Reason for Exam Generalized anxiety disorderPerformed By: #### TSH3 wRFLX, T4F, CBC, CMP #### [facility] [address] [place] [address] USAHyaline Casts,UrineNoneNormal0-8The [facility] Physician GroupComment on above:Order Comment: Reason for Exam Generalized anxiety disorderPerformed By: #### TSH3 wRFLX, T4F, CBC, CMP #### [place] [address] USAKetones Ql (U)2+HighNegativeThe [facility] Physician Group Comment on above:Order Comment: Reason for Exam Generalized anxiety disorder Performed By: #### TSH3 wRFLX, T4F, CBC, CMP #### [place] [address] USAMucus,Urine2+Critically abnormalThe [facility] Physician GroupComment on above:Order Comment: Reason for Exam Generalized anxiety disorderResult Comment: PERFORMED BY: [place] [address] PATHOLOGIST TIME CLERK CALLI JAFFE M.D.Performed By: #### TSH3 wRFLX, T4F, CBC, CMP #### [place] [address] USANitrite,UrineNegativeNormalNegativeThe [facility] Physician GroupComment on above:Order Comment: Reason for Exam Generalized anxiety disorderPerformed By: #### TSH3 wRFLX, T4F, CBC, CMP #### [place] [address] USAOccult Blood,Urine2+HighNegativeThe [facility] Physician GroupComment on above:Order Comment: Reason for Exam Generalized anxiety disorderPerformed By: #### TSH3 wRFLX, T4F, CBC, CMP #### [place] [address] USARBC,Inbbt9-6Ysrjbk7-5Ldu [facility] Physician GroupComment on above:Order Comment: Reason for Exam Generalized anxiety disorderPerformed By: #### TSH3 wRFLX, T4F, CBC, CMP #### [place] [address] USASpecificy Lanex[place],Urine>1.314Gxcl7.001-1.030The [facility] Physician GroupComment on above:Order Comment: Reason for Exam Generalized anxiety disorderPerformed By: #### TSH3 wRFLX, T4F, CBC, CMP #### [place] [address] USASquamous Epithelial Cell,Odrrw6-7Rdby8-2Aiv [facility] Physician GroupComment on above:Order Comment: Reason for Exam Generalized anxiety disorderPerformed By: #### TSH3 wRFLX, T4F, CBC, CMP #### [place] [address] USAUrobilinogen,UrineNormalNormalNormalThe [facility] Physician GroupComment on above:Order Comment: Reason for Exam Generalized anxiety disorderPerformed By: #### TSH3 wRFLX, T4F, CBC, CMP #### [facility] [address] [place] [address] USAWBC,Egwcx5-7Wjvg6-4Wut [facility] Physician GroupComment on above:Order Comment: Reason for Exam Generalized anxiety disorderPerformed By: #### TSH3 wRFLX, T4F, CBC, CMP #### [facility] [address] [place] [address] USAEosinophils Auto (Bld) [#/Vol]Ordered By: LEN Saab on 33-82-6815Xsyfmhzxmhi (Bld) [#/Vol]Automated eosinophil count0.0-0.45 [facility]wiler Memorial HospitalEosinophils [#/volume] in Blood by Automated countOrdered By: LEN Saab on 16-84-3633Dfnuymxolov (Bld) [#/Vol]0.0 10*3/uLNormal0.0-0.45Detwiler Memorial HospitalComment on above:Order Comment: Reason for Exam Generalized anxiety disorderPerformed By: #### TSH3 wRFLX, T4F, CBC, CMP #### [facility] [address] [place] [address] USAEosinophils/100 WBC Auto (Bld)Ordered By: LEN Saab on 83-60-5925Jlbqvyockdn/100 WBC (Bld)Automated eosinophil %.[facility]wiler Memorial HospitalEosinophils/100 leukocytes in Blood by Automated count Ordered By: LEN Saab on 60-16-3040Szmbceygjbk/100 WBC (Bld)0.4 % Normal.Detwiler Memorial HospitalComment on above:Order Comment: Reason for Exam Generalized anxiety disorderPerformed By: #### TSH3 wRFLX, T4F, CBC, CMP #### [facility] [address] [place] [address] USAEpithelial cells.squamous [#/area] in Urine sediment by Automated countOrdered By: LEN Saab on 90-41-7339Lybasgnuhl cells.squamous Auto (Urine sed) [#/Area]Epithelial cells.squamous [#/area] in Urine sediment by Automated countHigh0-2FOhio State Harding Hospital Epithelial cells.squamous Auto (Urine sed) [#/Area]5-9 [HPF]High0-2FOhio State Harding HospitalErythrocyte distribution width Auto (RBC) [Ratio]Ordered By: LEN Saab on 90-85-4623Xvnfegqtnuj distribution width (RBC) [Ratio]Erythrocyte distribution width [Ratio] by Automated count11.9-15.3 [facility]iler Memorial HospitalErythrocyte distribution width [Ratio] by Automated countOrdered By: LEN Saab on 30-94-5007Trxvnpxcgcx distribution width (RBC) [Ratio]15.2 %Nwtbpt93.9-15.3FOhio State Harding HospitalComment on above:Order Comment: Reason for Exam Generalized anxiety disorderPerformed By: #### TSH3 wRFLX, T4F, CBC, CMP #### [facility] [address] [place] [address] USAErythrocytes [#/area] in Urine sediment by Automated count Ordered By: LEN Saab on 04-43-2424DKJ Auto (Urine sed) [#/Area] Erythrocytes [#/area] in Urine sediment by Automated count0-4FOhio State Harding HospitalRBC Auto (Urine sed) [#/Area]1-2 [HPF]0-4FOhio State Harding HospitalErythrocytes [#/volume] in Blood by Automated countOrdered By: THANH Saab on 63-63-3511PMB (Bld) [#/Vol]4.06 10*6/uLNormal3.60-5.00 [facility] Memorial HospitalComment on above:Order Comment: Reason for Exam Generalized anxiety disorderPerformed By: #### TSH3 wRFLX, T4F, CBC, CMP #### [facility] [address] [place] [id number] USAGlucose [Mass/volume] in Urine by Test stripOrdered By: LEN Saab on 63-18-8398Sgasery Test strip (U) [Mass/Vol]Glucose [Mass/volume] in Urine by Test stripGrand Lake Joint Township District Memorial Hospital Glucose Test strip (U) [Mass/Vol]Normal mg/dLGrand Lake Joint Township District Memorial HospitalHIV 1/O/2 Antigen/Antibodyon 51-37-2660GRV Screen 4th Generation Non-ReactiveNormalNon ReactiveThe [facility] Physician GroupComment on above: Order Comment: Reason for Exam Generalized anxiety disorderResult Comment: HIV-1/HIV-2 antibodies and HIV-1 p24 antigen were NOT detected. There is no laboratory evidence of HIV infection. HIV Negative Performed at: [facility] Lab[address] [id number] Flake Cutter Operator: Shai Marmolejo PhD, Phone: [phone] By: #### TSH3 wRFLX, T4F, CBC, CMP #### [place] [address] USAHIV antibody and antigen panelOrdered By: LEN Saab on 70-15-3606ATH 1+2 Ab+HIV1 p24 Ag IA QlHIV 1 and HIV-2 antibody assay with HIV-1 p24 antigen detectionNon [facility] Comment on above:HIV-1/HIV-2 antibodies and HIV-1 p24 antigen were NOTdetected. There is no laboratory evidence of HIV infection.HIV NegativePerformed at: [facility] Lab[address] [id number] Director: Shai Marmolejo PhD, Phone: [phone] Auto (Bld) [Volume fraction]Ordered By: LEN Saab on 50-32-4079Qukjeqygub (Bld) [Volume fraction] Hematocrit [Volume Fraction] of Blood by Automated count34.0-46.4FOhio State Harding HospitalHematocrit [Volume Fraction] of Blood by Automated count Ordered By: LEN Saab on 05-90-7127Wbbwxtxiom (Bld) [Volume fraction] 35.9 %Idbyjq73.0-46.4FOhio State Harding HospitalComment on above:Order Comment: Reason for Exam Generalized anxiety disorderPerformed By: #### TSH3 wRFLX, T4F, CBC, CMP #### [facility] [address] [place] [address] USAHemoglobin Test strip Ql (U)Ordered By: LEN Saab on 37-14-1360Ndobabgxay Ql (U)Hemoglobin [Presence] in Urine by Test strip HighNegativeDetwiler Memorial HospitalHemoglobin Ql (U)2+HighNegative [facility]wiler Memorial HospitalHemoglobin [Mass/volume] in BloodOrdered By: LEN Saab on 20-28-0416Ioopldiyqx (Bld) [Mass/Vol]Hemoglobin [Mass/volume] in Blood11.8-15.4FOhio State Harding HospitalHemoglobin (Bld) [Mass/Vol]11.9 g/tOPzxlxc79.8-15.4FOhio State Harding HospitalComment on above:Order Comment: Reason for Exam Generalized anxiety disorderPerformed By: #### TSH3 wRFLX, T4F, CBC, CMP #### [facility] [address] [place] [address] USAHep C Ab wRfx to Qnt PCRon 60-45-0221Tzgbgykxs C Virus AntibodyNon-ReactiveNormalNon ReactiveThe [facility] Physician GroupComment on above:Order Comment: Reason for Exam Generalized anxiety disorderPerformed By: #### TSH3 wRFLX, T4F, CBC, CMP #### [facility] [address] [place] [address] USAInterpretation Hepatitis CCommentNormal.The [facility] Physician GroupComment on above:Order Comment: Reason for Exam Generalized anxiety disorderResult Comment: Not infected with HCV unless early or acute infection is suspected (which may be delayed in an immunocompromised individual), or other evidence exists to indicate HCV infection.Performed By: #### TSH3 wRFLX, T4F, CBC, CMP #### [facility] [address] [place] [address] USAHepatitis B Surface Antigenon 34-57-3068DNsIs Screen NegativeNormalNegativeThe [facility] Physician GroupComment on above:Order Comment: Reason for Exam Generalized anxiety disorderResult Comment: Performed at: - Lab[address] [id number] Flake Cutter Operator: Shai Marmolejo PhD, Phone: [phone] PERFORMED BY: [place] [id number] PATHOLOGIST TIME CLERK CALLI JAFFE M.D.Performed By: #### TSH3 wRFLX, T4F, CBC, CMP #### [facility] [address] [place] [address] USAHepatitis C virus IgG Ab [Presence] in Serum or Plasma by ImmunoassayOrdered By: LEN Saab on 11-08-6892OZT IgG IA QlHepatitis C virus IgG Ab [Presence] in Serum or Plasma by ImmunoassayNon ReactiveDetwiler Memorial HospitalHCV IgG IA QlNon-ReactiveNon ReactiveDetwiler Memorial HospitalHyaline casts [#/area] in Urine sediment by Automated countOrdered By: LEN Saab on 05-25-5171Tydsqdo casts Auto (Urine sed) [#/Area] Hyaline casts [#/area] in Urine sediment by Automated count0-8Detwiler Memorial HospitalHyaline casts Auto (Urine sed) [#/Area]None [LPF]0-8Detwiler Memorial HospitalKetones Test strip (U) [Mass/Vol]Ordered By: LEN Saab on 39-66-4100Ldoscaz (U) [Mass/Vol]Urine ketones measurement by test strip (mass/volume)HighNegMiddletown HospitalKetones (U) [Mass/Vol]2+HighNegMiddletown HospitalLeukocyte esterase [Presence] in Urine by Test stripOrdered By: LEN Saab on 02-22-2025 Leukocyte esterase Test strip Ql (U)Leukocyte esterase [Presence] in Urine by Test stripHighNegMiddletown HospitalLeukocyte esterase Test strip Ql (U)1+HighNegMiddletown HospitalComment on above: Order Comment: Reason for Exam Generalized anxiety disorderPerformed By: #### TSH3 wRFLX, T4F, CBC, CMP #### [facility] [address] [place], [place] [address] USALeukocytes [#/area] in Urine sediment by Automated count Ordered By: LEN Saab on 15-39-6335JWX Auto (Urine sed) [#/Area] Leukocytes [#/area] in Urine sediment by Automated countHigh0-4FOhio State Harding HospitalWBC Auto (Urine sed) [#/Area]5-9 [HPF]High0-4FOhio State Harding HospitalLeukocytes [#/volume] corrected for nucleated erythrocytes in Blood by Automated counOrdered By: LEN Saab on 85-18-5098LJG corrected for nucl RBC Auto (Bld) [#/Vol]Leukocytes [#/volume] corrected for nucleated erythrocytes in Blood by Automated coun3.8-11.6FOhio State Harding HospitalWBC corrected for nucl RBC Auto (Bld) [#/Vol]6.4 10*3/uL 3.8-11.6FOhio State Harding HospitalLeukocytes [#/volume] in Blood by Automated countOrdered By: LEN Saab on 15-79-9712WTF (Bld) [#/Vol] 6.4 10*3/uLNormal3.8-11.6FOhio State Harding HospitalComment on above:Order Comment: Reason for Exam Generalized anxiety disorderPerformed By: #### TSH3 wRFLX, T4F, CBC, CMP #### [facility] [address] [place], [place] [id number] USALymphocytes Auto (Bld) [#/Vol]Ordered By: LEN Saba on 89-27-4691Nftazvlifzi (Bld) [#/Vol]Lymphocytes [#/volume] in Blood by Automated count1.00-4.8Det[facility] HospitalLymphocytes [#/volume] in Blood by Automated countOrdered By: LEN Saab on 02-22-2025 Lymphocytes (Bld) [#/Vol]2.2 10*3/uLNormal1.00-4.8Det[facility] HospitalComment on above:Order Comment: Reason for Exam Generalized anxiety disorderPerformed By: #### TSH3 wRFLX, T4F, CBC, CMP #### [facility] [address] [place] [address] USALymphocytes/100 WBC Auto (Bld)Ordered By: LEN Saab on 06-42-8925Ofxvpysmxaq/100 WBC (Bld)Lymphocytes/100 leukocytes in Blood by Automated count.[facility] HospitalLymphocytes/100 leukocytes in Blood by Automated countOrdered By: LEN Saab on 02-22-2025 Lymphocytes/100 WBC (Bld)34.9 %Normal.[facility] HospitalComment on above:Order Comment: Reason for Exam Generalized anxiety disorderPerformed By: #### TSH3 wRFLX, T4F, CBC, CMP #### [facility] [address] Auto (RBC) [Entitic mass]Ordered By: LEN Saab on 69-30-4591SIS (RBC) [Entitic mass]MCH [Entitic mass] by Automated count 24.7-34.3FK[facility] [Entitic mass] by Automated count Ordered By: LEN Saab on 07-04-3276SKM (RBC) [Entitic mass]29.3 pg Qesqgu12.7-34.3FOhio State Harding HospitalComment on above:Order Comment: Reason for Exam Generalized anxiety disorderPerformed By: #### TSH3 wRFLX, T4F, CBC, CMP #### [facility] [address] [place] [address] [facility] Auto (RBC) [Mass/Vol]Ordered By: LEN Saab on 50-47-8441EFHM (RBC) [Mass/Vol]MCHC [Mass/volume] by Automated count 32.0-35.0[facility] HospitalHC (RBC) [Mass/Vol]33.1 g/dL 32.0-35.0Lima Memorial HospitalV Auto (RBC) [Entitic vol]Ordered By: LEN Saab on 01-45-6178MCM (RBC) [Entitic vol]MCV [Entitic volume] by Automated -383NcetexntaLima Memorial HospitalV [Entitic volume] by Automated countOrdered By: LEN Saab on 65-03-8084KRJ (RBC) [Entitic vol]88.5 bSJkavpt12-215TjkkaetnnDetwiler Memorial HospitalComment on above:Order Comment: Reason for Exam Generalized anxiety disorderPerformed By: #### TSH3 wRFLX, T4F, CBC, CMP #### [place] [id number] USAMISC LABon 73-51-8950JNTY LABNoNovant Health Huntersville Medical Center Physician GroupComment on above:Order Comment: Reason for Exam Generalized anxiety disorderResult Comment: See report. Scanned copy available in EMR. PERFORMED BY: [place] [address] PATHOLOGIST TIME CLERK CALLI JAFFE M.D.Performed By: #### TSH3 wRFLX, T4F, CBC, CMP #### [place] [id number] USAMonocytes Auto (Bld) [#/Vol]Ordered By: LEN Saab on 47-32-0300Zsmtyzrkg (Bld) [#/Vol]Automated blood monocyte count0.0-0.8 [facility] HospitalMonocytes [#/volume] in Blood by Automated countOrdered By: LEN Saab on 31-90-2856Pbqravtiz (Bld) [#/Vol]0.6 10*3/uLNormal0.0-0.8Det[facility]iler Memorial HospitalComment on above:Order Comment: Reason for Exam Generalized anxiety disorderPerformed By: #### TSH3 wRFLX, T4F, CBC, CMP #### [place] [id number] USAMonocytes/100 WBC Auto (Bld)Ordered By: LEN Saab on 16-48-2183Xezsustey/100 WBC (Bld)Automated monocyte %.[facility] HospitalMonocytes/100 leukocytes in Blood by Automated count Ordered By: LEN Saab on 49-93-4724Eqsrsfdnp/100 WBC (Bld)8.8 %Normal .[facility] Memorial HospitalComment on above:Order Comment: Reason for Exam Generalized anxiety disorderPerformed By: #### TSH3 wRFLX, T4F, CBC, CMP #### [facility] [address] [place] [address] USAMucus [Presence] in Urine by AutomatedOrdered By: LEN Saab on 04-90-5654Jmbbe Auto Ql (U)Mucus [Presence] in Urine by AutomatedAbnormalDetwiler Memorial HospitalMucus Auto Ql (U)2+ [LPF] AbnormalDetwiler Memorial HospitalNeutrophils Auto (Bld) [#/Vol]Ordered By: LEN Saab on 14-24-6345Jcasjcreuvr (Bld) [#/Vol]Neutrophils [#/volume] in Blood by Automated count1.8-7.7FOhio State Harding Hospital Neutrophils [#/volume] in Blood by Automated countOrdered By: LEN Saab on 24-89-4241Xsgszqxzfps (Bld) [#/Vol]3.5 10*3/uLNormal1.8-7.7FOhio State Harding HospitalComment on above:Order Comment: Reason for Exam Generalized anxiety disorderPerformed By: #### TSH3 wRFLX, T4F, CBC, CMP #### [facility] [address] [place] [address] USANeutrophils/100 WBC Auto (Bld)Ordered By: LEN Saab on 33-40-8453Xzcosqkpjeq/100 WBC (Bld)Automated neutrophil %.[facility] HospitalNeutrophils/100 leukocytes in Blood by Automated count Ordered By: LEN Saab on 39-34-6390Sjdbbcslunn/100 WBC (Bld)55.1 % Normal.[facility] HospitalComment on above:Order Comment: Reason for Exam Generalized anxiety disorderPerformed By: #### TSH3 wRFLX, T4F, CBC, CMP #### [facility] [address] [place] [address] USANitrite Test strip Ql (U)Ordered By: LEN Saab on 39-49-5773Mvuwdlq Ql (U)Nitrite [Presence] in Urine by Test stripNegative [facility] HospitalNitrite Ql (U)NegativeNegativeDetwiler Memorial HospitalNo Panel InformationOrdered By: LEN Saab on 53-06-5976Iacarxjvw C InterpretationComment.[facility] Comment on above:Not infected with HCV unless early or acute infection issuspected (which may be delayed in an immunocompromisedindividual), or other evidence exists to indicate HCVinfection.Miscellaneous TestSee commentDetwiler Memorial HospitalComment on above:See report. Scanned copy available in EMR.Nucleated erythrocytes [Presence] in Blood by Automated countOrdered By: THANH Saab on 95-56-9291Bjjzoflef RBC Auto Ql (Bld)Nucleated erythrocytes [Presence] in Blood by Automated count0-0.5FOhio State Harding Hospital Nucleated RBC Auto Ql (Bld)0.1 /100{WBC}0-0.5FOhio State Harding Hospital Platelet mean volume Auto (Bld) [Entitic vol]Ordered By: LEN Saab on 91-73-7645Gnpnxtzv mean volume (Bld) [Entitic vol]Platelet mean volume [Entitic volume] in Blood by Automated count6.3-10.7FOhio State Harding Hospital Platelet mean volume [Entitic volume] in Blood by Automated countOrdered By: THANH Saab on 41-43-4030Nmciycnt mean volume (Bld) [Entitic vol]9.1 fL Normal6.3-10.7FOhio State Harding HospitalComment on above:Order Comment: Reason for Exam Generalized anxiety disorderPerformed By: #### TSH3 wRFLX, T4F, CBC, CMP #### [facility] [address] [place] [address] USAPlatelets Auto (Bld) [#/Vol]Ordered By: LEN Saab on 85-70-8357Pfzfyeeek (Bld) [#/Vol]Platelets [#/volume] in Blood by Automated fymrq898-969FfwokxkpyDetwiler Memorial HospitalPlatelets [#/volume] in Blood by Automated countOrdered By: LEN Saab on 55-02-5142Oktazpdkp (Bld) [#/Vol]308 10*3/uVPbokre590-976RzhnenakaDetwiler Memorial HospitalComment on above:Order Comment: Reason for Exam Generalized anxiety disorderPerformed By: #### TSH3 wRFLX, T4F, CBC, CMP #### [facility] [address] [place] [address] USAProtein Test strip (U) [Mass/Vol]Ordered By: LEN Saab on 03-24-1172Hceoypo (U) [Mass/Vol]Protein [Mass/volume] in Urine by Test stripHighNegMiddletown HospitalProtein [Mass/volume] in Urine by Test stripOrdered By: LEN Saab on 99-64-7580Ssnclkc (U) [Mass/Vol]10 mg/dLHighNegMiddletown HospitalComment on above: Order Comment: Reason for Exam Generalized anxiety disorderPerformed By: #### TSH3 wRFLX, T4F, CBC, CMP #### [address] [address] USARBC Auto (Bld) [#/Vol]Ordered By: LEN Saab on 41-54-7436QLB (Bld) [#/Vol]Erythrocytes [#/volume] in Blood by Automated count 3.60-5.00Detwiler Memorial HospitalRPR w/rfx to Quant TP Abson 02-22-2025 RPR, Rfx Quant RPRNon-ReactiveNormalNon ReactiveThe [facility] Physician Group Comment on above:Order Comment: Reason for Exam Generalized anxiety disorder Result Comment: PERFORMED BY: [place] [id number] PATHOLOGIST TIME CLERK CALLI JAFFE M.D.Performed By: #### TSH3 wRFLX, T4F, CBC, CMP #### [facility] [address] [place] [address] USARubeola (Measles) Abs, IgGon 18-96-2787Guyyvrq (Measles) Abs, WkE508.0NormalImmune >16.4The [facility] Physician GroupComment on above: Order Comment: Reason for Exam Generalized anxiety disorderResult Comment: Negative <13.5 Equivocal 13.5 - 16.4 Positive >16.4 Presence of antibodies to Rubeola is presumptive evidence of immunity except when acute infection is suspected. Performed at: [facility] [address] [place], [place] [id number] Flake Cutter Operator: Shai Marmolejo PhD, Phone: [phone] By: #### TSH3 wRFLX, T4F, CBC, CMP #### [facility] [address] [place] [address] USASerum RPR testOrdered By: LEN Saab on 19-31-9972Nbccpn Ab RPR Ql (S)Reagin Ab [Presence] in Serum by RPRNon Reactive [facility] HospitalReagin Ab RPR Ql (S)Non-ReactiveNon Reactive [facility] Hospitalerum measles virus IgG antibody assay by immunoassay (units/volume)Ordered By: LEN Saab on 98-59-7986BoZ IgG IA Qn (S)Measles virus IgG Ab [Units/volume] in Serum by ImmunoassayImmune >16.4 [facility] HospitalComment on above:Negative <13.5 Equivocal 13.5 - 16.4 Positive >16.4Presence of antibodies to Rubeola is presumptive evidenceof immunity except when acute infection is suspected.Performed at: [address] [id number] Director: Shai Marmolejo PhD, Phone: [phone] IgG IA Qn (S)201.0 AU/mLImmune >16.4FOhio State Harding HospitalComment on above:Negative <13.5 Equivocal 13.5 - 16.4 Positive >16.4Presence of antibodies to Rubeola is presumptive evidenceof immunity except when acute infection is suspected.Performed at: [address] [id number] Director: Shai Marmolejo PhD, Phone: [phone] Serum or plasma hepatitis B virus surface antigen detection by immunoassay Ordered By: LEN Saab on 40-17-2927SVY surface Ag IA QlHepatitis B virus surface Ag [Presence] in Serum or Plasma by ImmunoassayNegativeDetwiler Memorial HospitalComment on above:Performed at: [facility] [address] [id number] Director: Shai Marmolejo PhD, Phone: [phone] surface Ag IA QlNegativeNegativeDetwiler Memorial Hospital Comment on above:Performed at: - [facility] [address] [place], [place] [id number] Director: Shai Marmolejo PhD, Phone: [phone] gravity of Urine by RefractometryOrdered By: LEN Saab on 00-02-5409Ncjulgwt gravity Refractometry (U) [Rel density]Specific gravity of Urine by RefractometryHigh1.001-1.030[facility]an Private Hospitalpecific gravity Refractometry (U) [Rel density]>1.761Nyrs0.001-1.030[facility] HospitalType and Screenon 98-97-5994CHC and Rh group Nom (Bld)Blood group O Rh(D) positiveNoNovant Health Huntersville [facility] Center Physician GroupComment on above:Order Comment: Reason for Exam Generalized anxiety disorderUrine Cultureon 15-68-7323Qybjphes identified Cx Nom (U)FASTING.JKW ORGANISM: Strep agalactiae - (group b) (O:STRAGA) [place] Count 30,000 PERFORMED BY: [place] [address] PATHOLOGIST TIME CLERK CALLI JAFFE M.D.NormalAdventhealth Tampa Physician GroupComment on above: Performed By: #### TSH3 wRFLX, T4F, CBC, CMP #### [facility] [address] [place] [address] USAUrine appearance determinationOrdered By: LEN Saab on 01-95-7734Avugimqizz (U)Urine appearanceCleElyria Memorial HospitalAppearance (U)ClearNormalClearDetwiler Memorial HospitalComment on above:Order Comment: Reason for Exam Generalized anxiety disorderPerformed By: #### TSH3 wRFLX, T4F, CBC, CMP #### [facility] [address] [place] [address] USAUrine color determinationOrdered By: LEN Saab on 96-00-0584Jeckn (U)Urine colorYellowDetwiler Memorial HospitalColor (U)YellowNormalYellowDetwiler Memorial HospitalComment on above:Order Comment: Reason for Exam Generalized anxiety disorderPerformed By: #### TSH3 wRFLX, T4F, CBC, CMP #### [facility] [address] [place] [address] USAUrine cultureOrdered By: LEN Saab on 94-43-6705Lmzglxbz identified Cx Nom (U)Group B Strep (Streptococcus agalactiae) AbnormalDetwiler Memorial HospitalBacteria identified Cx Nom (U)Strep agalactiae - (group b)AbnormalDetwiler Memorial HospitalUrobilinogen Test strip (U) [Mass/Vol]Ordered By: LEN Saab on 74-48-1433Fpibhsbeaglz (U) [Mass/Vol]Urobilinogen [Mass/volume] in Urine by Test stripNoUniversity Hospitals Portage Medical CenterUrobilinogen (U) [Mass/Vol]Normal mg/dLNoUniversity Hospitals Portage Medical CenterWBC Auto (Bld) [#/Vol]Ordered By: LEN Saab on 61-21-8085VRJ (Bld) [#/Vol]Leukocytes [#/volume] in Blood by Automated count 3.8-11.6FOhio State Harding HospitalpH Test strip (U)Ordered By: LEN Saab on 62-71-5837wW (U)pH of Urine by Test strip5.0-9.0[facility] HospitalpH of Urine by Test stripOrdered By: LEN Saab on 89-52-5257wZ (U)5.5 [pH]Normal5.0-9.0[facility] Comment on above:Order Comment: Reason for Exam Generalized anxiety disorder Performed By: #### TSH3 wRFLX, T4F, CBC, CMP #### [facility] [address] [place] [address] USAThyroid Stimulating Immunoglobon 91-33-6795Ymglgfe Stimulating Immunoglob<0.27Ekcvgt0.00-0.55[facility] Physician GroupComment on above:Order Comment: Reason for Exam Generalized anxiety disorderResult Comment: Performed at: [facility] - Lab[address] [id number] Flake Cutter Operator: Mami Frank MD, Phone: [phone] PERFORMED BY: [place] [address] PATHOLOGIST TIME CLERK CALLI JAFFE M.D.Performed By: #### TSH3 wRFLX, T4F, CBC, CMP #### [facility] [address] [place] [address] USAThyroid stimulating immunoglobulin (TSI) measurement Ordered By: Shad Alamo on 86-36-2726Uuxwnau stimulating immunoglobulins actual/normal (S) [Relative mass conc]Thyroid stimulating immunoglobulin (TSI) measurement0.00-0.55[facility] HospitalComment on above:Performed at: - Lab[address] [id number] Director: Mami Frank MD, Phone: [phone] stimulating immunoglobulins actual/normal (S) [Relative mass conc]<0.10 IU/L0.00-0.55 [facility] HospitalComment on above:Performed at: - Labco[address] [id number] Director: Mami Frank MD, Phone: [phone] aminotransferase [Enzymatic activity/volume] in Serum or PlasmaOrdered By: Shad Alamo on 21-48-5624NCB [Catalytic activity/Vol]Alanine aminotransferase [Enzymatic activity/volume] in Serum or PlasmaDetwiler Memorial HospitalALT [Catalytic activity/Vol]21 U/L Normal[address] [place], [place] [address]Comment on above:Order Comment: Reason for Exam Generalized anxiety disorderPerformed By: #### TSH3 wRFLX, T4F, CBC, CMP #### [facility] [address] [place] [address] USAAlbumin [Mass/volume] in Serum or Plasma by Bromocresol green (BCG) dye binding methoOrdered By: Shad Alamo on 54-14-2655Xddxxbo BCG dye [Mass/Vol]Albumin [Mass/volume] in Serum or Plasma by Bromocresol green (BCG) dye binding metho3.5-5.7FOhio State Harding HospitalAlbumin BCG dye [Mass/Vol]4.6 g/dL3.5-5.7FOhio State Harding HospitalAlkaline phosphatase [Enzymatic activity/volume] in Serum or PlasmaOrdered By: Shad Alamo on 61-93-1318BHQ [Catalytic activity/Vol]Alkaline phosphatase [Enzymatic activity/volume] in Serum or Pekxvr58-974Yiigodylf[address] [place], [place] [address]ALP [Catalytic activity/Vol]67 U/BFedfsw10-484Cbjmoph[address] Comment on above:Order Comment: Reason for Exam Generalized anxiety disorder Performed By: #### TSH3 wRFLX, T4F, CBC, CMP #### [facility] [address] [place] [address] USAAspartate aminotransferase [Enzymatic activity/volume] in Serum or PlasmaOrdered By: Shad Alamo on 01-74-1603PEG [Catalytic activity/Vol]Aspartate aminotransferase [Enzymatic activity/volume] in Serum or Ihqsuh39-63Cutwiwmhf89 Maxwell StreetAST [Catalytic activity/Vol]17 U/L Cyxpjq94-76Vvcypzoaf89 Maxwell StreetComment on above:Order Comment: Reason for Exam Generalized anxiety disorderPerformed By: #### TSH3 wRFLX, T4F, CBC, CMP #### [facility] [address] [place] [address] USABasophils Auto (Bld) [#/Vol]Ordered By: Shad Alamo on 04-66-4130Gsppejgwb (Bld) [#/Vol]Automated basophil count0.0-0.2FOhio State Harding HospitalBasophils [#/volume] in Blood by Automated countOrdered By: Shad Alamo on 79-50-6548Duwkzazml (Bld) [#/Vol]0.1 10*3/uLNormal0.0-0.2 [facility] HospitalComment on above:Order Comment: Reason for Exam Generalized anxiety disorderResult Comment: PERFORMED BY: [place] [address] PATHOLOGIST TIME CLERK JEAN CARLOS LYNN M.D.Performed By: #### TSH3 wRFLX, T4F, CBC, CMP #### [facility] [address] [place] [address] USABasophils/100 WBC Auto (Bld)Ordered By: Shad Alamo on 96-45-5068Reunrinmn/100 WBC (Bld)Automated basophil %.[facility] Memorial HospitalBasophils/100 leukocytes in Blood by Automated countOrdered By: Shad Alamo on 30-85-6275Cfklzvdmr/100 WBC (Bld)0.9 %Normal.[facility] HospitalComment on above:Order Comment: Reason for Exam Generalized anxiety disorderPerformed By: #### TSH3 wRFLX, T4F, CBC, CMP #### [facility] [address] [place] [address] USABilirubin.total [Mass/volume] in Serum or PlasmaOrdered By: Shad Alamo on 41-90-3063Mvsgbjesy [Mass/Vol]Bilirubin.total [Mass/volume] in Serum or Plasma0.3-1.0[facility] Bilirubin [Mass/Vol]0.5 mg/dLNormal0.3-1.0[facility] Comment on above:Order Comment: Reason for Exam Generalized anxiety disorder Performed By: #### TSH3 wRFLX, T4F, CBC, CMP #### [place] [id number] USACalcium [Mass/volume] in Serum or PlasmaOrdered By: Shad Alamo on 26-35-7070Xcolnws [Mass/Vol]Calcium [Mass/volume] in Serum or Plasma 8.6-10.3FOhio State Harding HospitalCalcium [Mass/Vol]10.2 mg/dLNormal 8.6-10.3FOhio State Harding HospitalComment on above:Order Comment: Reason for Exam Generalized anxiety disorderPerformed By: #### TSH3 wRFLX, T4F, CBC, CMP #### [facility] [address] [place] [address] USACarbon dioxide, total [Moles/volume] in Serum or Plasma Ordered By: Shad Alamo on 72-50-7717GB3 [Moles/Vol]Carbon dioxide, total [Moles/volume] in Serum or Qrcndm95.0-31.0Fire[facility] Medical CenterCO2 [Moles/Vol]29.9 mmol/VFbwhdx19.0-31.0[facility] HospitalComment on above:Order Comment: Reason for Exam Generalized anxiety disorderPerformed By: #### TSH3 wRFLX, T4F, CBC, CMP #### [facility] [address] [place] [address] USAChloride [Moles/volume] in Serum or PlasmaOrdered By: Shad Alamo on 01-31-3149Dtfggalf [Moles/Vol]Chloride [Moles/volume] in Serum or Vhwotq21-102DoktrhyxyDetwiler Memorial HospitalChloride [Moles/Vol]103 mmol/L Rqaaen14-619ThmsxajaiDetwiler Memorial HospitalComment on above:Order Comment: Reason for Exam Generalized anxiety disorderPerformed By: #### TSH3 wRFLX, T4F, CBC, CMP #### [facility] [address] [place] [address] USAComplete Blood Count Auto Diffon 84-67-9778Ajvs Corpuscular HGB Conc33.5 g/jGCftkvw57.0-35.0[facility] Physician GroupComment on above:Order Comment: Reason for Exam Generalized anxiety disorderPerformed By: #### TSH3 wRFLX, T4F, CBC, CMP #### [facility] [address] [place] [address] USANRBC%0.0 /100{WBC}Normal0-0.5[facility] Comment on above:Order Comment: Reason for Exam Generalized anxiety disorder Performed By: #### TSH3 wRFLX, T4F, CBC, CMP #### [facility] [address] [place] [address] USAComprehensive Metabolic Panelon 17-26-9677Efjypla [Mass/Vol]4.6 g/dLNormal3.5-5.7[facility] Physician GroupComment on above: Order Comment: Reason for Exam Generalized anxiety disorderPerformed By: #### TSH3 wRFLX, T4F, CBC, CMP #### [place] [address] USAGFR/1.73 sq M.predicted MDRD (S/P/Bld) [Vol rate/Area] mL/min/{1.73_m2}NormalThe [facility] Hospital Physician GroupComment on above:Order Comment: Reason for Exam Generalized anxiety disorderPerformed By: #### TSH3 wRFLX, T4F, CBC, CMP #### [facility] [address] [place] [address] USACreatinine [Mass/volume] in Serum or PlasmaOrdered By: Shad Alamo on 74-34-8396Ohxdqgfdid [Mass/Vol]Creatinine [Mass/volume] in Serum or Plasma0.60-1.20[facility] HospitalCreatinine [Mass/Vol] 0.73 mg/dLNormal0.60-1.20[facility] HospitalComment on above:Order Comment: Reason for Exam Generalized anxiety disorderPerformed By: #### TSH3 wRFLX, T4F, CBC, CMP #### [facility] [address] [place] [address] USAEosinophils Auto (Bld) [#/Vol]Ordered By: Shad Alamo on 87-92-6754Dltplzgmwzq (Bld) [#/Vol]Automated eosinophil count0.0-0.45 [facility] HospitalEosinophils [#/volume] in Blood by Automated countOrdered By: Shad Alamo on 38-17-5317Ruxvyzbhwiu (Bld) [#/Vol]0.1 10*3/uLNormal0.0-0.45[facility] HospitalComment on above:Order Comment: Reason for Exam Generalized anxiety disorderPerformed By: #### TSH3 wRFLX, T4F, CBC, CMP #### [facility] [address] [place] [address] USAEosinophils/100 WBC Auto (Bld)Ordered By: Shad Alamo on 92-91-3025Kannwqvctrr/100 WBC (Bld)Automated eosinophil %.[facility] Memorial HospitalEosinophils/100 leukocytes in Blood by Automated countOrdered By: Shad Alamo on 22-18-4205Ywdodtdultc/100 WBC (Bld)0.6 %Normal.[facility] HospitalComment on above:Order Comment: Reason for Exam Generalized anxiety disorderPerformed By: #### TSH3 wRFLX, T4F, CBC, CMP #### [facility] [address] [place] [address] USAErythrocyte distribution width Auto (RBC) [Ratio]Ordered By: Shad Alamo on 94-83-4970Hsbdkmfrwyr distribution width (RBC) [Ratio] Erythrocyte distribution width [Ratio] by Automated count11.9-15.3FOhio State Harding HospitalErythrocyte distribution width [Ratio] by Automated count Ordered By: Shad Alamo on 62-78-4043Joajzzwqdmv distribution width (RBC) [Ratio]14.9 %Hbpwom37.9-15.3FOhio State Harding HospitalComment on above: Order Comment: Reason for Exam Generalized anxiety disorderPerformed By: #### TSH3 wRFLX, T4F, CBC, CMP #### [facility] [address] [place] [address] USAErythrocytes [#/volume] in Blood by Automated countOrdered By: Shad Alamo on 35-51-9872QPU (Bld) [#/Vol]4.40 10*6/uLNormal3.60-5.00 [facility] HospitalComment on above:Order Comment: Reason for Exam Generalized anxiety disorderPerformed By: #### TSH3 wRFLX, T4F, CBC, CMP #### [facility] [address] [place] [address] USAGlobulin Calc (S) [Mass/Vol]Ordered By: Shda Alamo on 27-95-8674Vqqzzlkl (S) [Mass/Vol]Serum globulin measurement by calculation (mass/volume)[facility] HospitalGlucose [Mass/volume] in Serum or PlasmaOrdered By: Shad Alamo on 67-86-6363Nboebmx [Mass/Vol]Glucose [Mass/volume] in Serum or Kxoxmh44-477DuszlyjfuDetwiler Memorial HospitalComment on above:ADA recommended reference rangeRandom Glucose Reference Range is dependent on time and content of last meal. Glucose of more than 200 mg/dL in a nonstressed, ambulatory subject supports the diagnosisof Diabetes Mellitus. Glucose [Mass/Vol]94 mg/wOJwmhze25-044FzowoqxfnDetwiler Memorial HospitalComment on above:ADA recommended reference rangeRandom Glucose Reference Range is dependent on time and content of last meal. Glucose of more than 200 mg/dL in a nonstressed, ambulatory subject supports the diagnosisof Diabetes Mellitus.Order Comment: Reason for Exam Generalized anxiety disorderResult Comment: Random Glucose Reference Range is dependent on time and content of last meal. Glucose of more than 200 mg/dL in a nonstressed, ambulatory subject supports the diagnosis of Diabetes Mellitus. ADA recommended reference rangePerformed By: #### TSH3 wRFLX, T4F, CBC, CMP #### [facility] [address] [address] USAHematocrit Auto (Bld) [Volume fraction]Ordered By: Shad Alamo on 98-27-0024Wuzjfvwqph (Bld) [Volume fraction]Hematocrit [Volume Fraction] of Blood by Automated count34.0-46.4FOhio State Harding Hospital Hematocrit [Volume Fraction] of Blood by Automated countOrdered By: Shad Alamo on 82-35-0513Jxznaamyto (Bld) [Volume fraction]38.6 %Nrxazl51.0-46.4 [facility] HospitalComment on above:Order Comment: Reason for Exam Generalized anxiety disorderPerformed By: #### TSH3 wRFLX, T4F, CBC, CMP #### [facility] [address] [address] USAHemoglobin [Mass/volume] in BloodOrdered By: Shad Alamo on 73-10-0640Gstyqpwbnn (Bld) [Mass/Vol]Hemoglobin [Mass/volume] in Blood11.8-15.4FOhio State Harding HospitalHemoglobin (Bld) [Mass/Vol]12.9 g/nHBzwfxk91.8-15.4FOhio State Harding HospitalComment on above:Order Comment: Reason for Exam Generalized anxiety disorderPerformed By: #### TSH3 wRFLX, T4F, CBC, CMP #### [facility] [address] [address] USALeukocytes [#/volume] corrected for nucleated erythrocytes in Blood by Automated counOrdered By: Shad Alamo on 38-74-7811WBA corrected for nucl RBC Auto (Bld) [#/Vol]Leukocytes [#/volume] corrected for nucleated erythrocytes in Blood by Automated coun3.8-11.6FOhio State Harding Hospital WBC corrected for nucl RBC Auto (Bld) [#/Vol]8.2 10*3/uL3.8-11.6FOhio State Harding HospitalLeukocytes [#/volume] in Blood by Automated countOrdered By: Shad Alamo on 82-38-3678HZQ (Bld) [#/Vol]8.2 10*3/uLNormal3.8-11.6 [facility] HospitalComment on above:Order Comment: Reason for Exam Generalized anxiety disorderPerformed By: #### TSH3 wRFLX, T4F, CBC, CMP #### [facility] [address] [place] [address] USALymphocytes Auto (Bld) [#/Vol]Ordered By: Shad Alamo on 41-33-5487Gqtyhvcltaq (Bld) [#/Vol]Lymphocytes [#/volume] in Blood by Automated count1.00-4.8[facility] HospitalLymphocytes [#/volume] in Blood by Automated countOrdered By: Shad Alamo on 33-69-0138Egdmyvgcqbg (Bld) [#/Vol]2.9 10*3/uLNormal1.00-4.8[facility] HospitalComment on above:Order Comment: Reason for Exam Generalized anxiety disorderPerformed By: #### TSH3 wRFLX, T4F, CBC, CMP #### [facility] [address] [place] [address] USALymphocytes/100 WBC Auto (Bld)Ordered By: Shad Alamo on 81-45-4637Mvrawrwhngf/100 WBC (Bld)Lymphocytes/100 leukocytes in Blood by Automated count.[facility] HospitalLymphocytes/100 leukocytes in Blood by Automated countOrdered By: Shad Alamo on 70-16-7507Autsugipwyj/100 WBC (Bld)35.2 %Normal.[facility] HospitalComment on above:Order Comment: Reason for Exam Generalized anxiety disorderPerformed By: #### TSH3 wRFLX, T4F, CBC, CMP #### [facility] [address] Auto (RBC) [Entitic mass]Ordered By: Shad Alamo on 23-63-6101SCX (RBC) [Entitic mass]MCH [Entitic mass] by Automated count24.7-34.3 [facility] [Entitic mass] by Automated countOrdered By: Shad Alamo on 12-86-1500RKN (RBC) [Entitic mass]29.4 ugVtjfdk21.7-34.3 [facility] HospitalComment on above:Order Comment: Reason for Exam Generalized anxiety disorderPerformed By: #### TSH3 wRFLX, T4F, CBC, CMP #### [facility] [address] Auto (RBC) [Mass/Vol]Ordered By: Shad Alamo on 98-62-7147BLHC (RBC) [Mass/Vol]MCHC [Mass/volume] by Automated count32.0-35.0 [facility] (RBC) [Mass/Vol]33.5 g/dL32.0-35.0 [facility] Auto (RBC) [Entitic vol]Ordered By: Shad Alamo on 16-16-4545LQU (RBC) [Entitic vol]MCV [Entitic volume] by Automated -580FvvtdbbzwLima Memorial HospitalV [Entitic volume] by Automated countOrdered By: Shad Alamo on 30-59-3236ZFI (RBC) [Entitic vol]87.7 fL Wpzyyf78-243MtjsnvelxDetwiler Memorial HospitalComment on above:Order Comment: Reason for Exam Generalized anxiety disorderPerformed By: #### TSH3 wRFLX, T4F, CBC, CMP #### [facility] [address] [place] [address] USAMonocytes Auto (Bld) [#/Vol]Ordered By: Shad Alamo on 52-62-1664Dgllvmrfc (Bld) [#/Vol]Automated blood monocyte count0.0-0.8[facility] HospitalMonocytes [#/volume] in Blood by Automated countOrdered By: Shad Alamo on 16-95-0281Kxgvarxcl (Bld) [#/Vol]0.5 10*3/uLNormal0.0-0.8 [facility] HospitalComment on above:Order Comment: Reason for Exam Generalized anxiety disorderPerformed By: #### TSH3 wRFLX, T4F, CBC, CMP #### [facility] [address] [place] [address] USAMonocytes/100 WBC Auto (Bld)Ordered By: Shad Alamo on 40-91-8687Vrevtcwgm/100 WBC (Bld)Automated monocyte %.[facility] HospitalMonocytes/100 leukocytes in Blood by Automated countOrdered By: Shad Alamo on 43-89-3445Mtpjrfgzc/100 WBC (Bld)5.8 %Normal.[facility] HospitalComment on above:Order Comment: Reason for Exam Generalized anxiety disorderPerformed By: #### TSH3 wRFLX, T4F, CBC, CMP #### [facility] [address] [place] [address] USANeutrophils Auto (Bld) [#/Vol]Ordered By: Shad Alamo on 12-58-1081Hayoznsaygk (Bld) [#/Vol]Neutrophils [#/volume] in Blood by Automated count1.8-7.7FOhio State Harding HospitalNeutrophils [#/volume] in Blood by Automated countOrdered By: Shad Alamo on 74-56-4652Josgsfsrjwk (Bld) [#/Vol]4.7 10*3/uLNormal1.8-7.7FOhio State Harding HospitalComment on above:Order Comment: Reason for Exam Generalized anxiety disorderPerformed By: #### TSH3 wRFLX, T4F, CBC, CMP #### [facility] [address] [place] [address] USANeutrophils/100 WBC Auto (Bld)Ordered By: Shad Alamo on 01-32-9483Pwzjoqspvey/100 WBC (Bld)Automated neutrophil %.[facility] HospitalNeutrophils/100 leukocytes in Blood by Automated countOrdered By: Shad Alamo on 94-88-0765Xpwqjfoljjr/100 WBC (Bld)57.5 %Normal.[facility] HospitalComment on above:Order Comment: Reason for Exam Generalized anxiety disorderPerformed By: #### TSH3 wRFLX, T4F, CBC, CMP #### [facility] [address] [place] [address] USANo Panel InformationOrdered By: Shad Alamo on 38-22-9714Wucavioru GFR (CKD-EPI)> 60.0 mL/MinDetwiler Memorial Hospital Pharmacy Creatinine Clearance (ChemN/AFOhio State Harding HospitalNucleated erythrocytes [Presence] in Blood by Automated countOrdered By: Shad Alamo on 72-87-0407Nveneupyf RBC Auto Ql (Bld)Nucleated erythrocytes [Presence] in Blood by Automated count0-0.5FOhio State Harding HospitalNucleated RBC Auto Ql (Bld)0.0 /100{WBC}0-0.5FOhio State Harding HospitalPlatelet mean volume Auto (Bld) [Entitic vol]Ordered By: Shad Alamo on 91-68-5154Veplwoep mean volume (Bld) [Entitic vol]Platelet mean volume [Entitic volume] in Blood by Automated count6.3-10.7FOhio State Harding HospitalPlatelet mean volume [Entitic volume] in Blood by Automated countOrdered By: Shad Alamo on 16-75-2667Tpqgjruy mean volume (Bld) [Entitic vol]9.2 fLNormal6.3-10.7FOhio State Harding HospitalComment on above:Order Comment: Reason for Exam Generalized anxiety disorderPerformed By: #### TSH3 wRFLX, T4F, CBC, CMP #### [facility] [address] [place] [address] USAPlatelets Auto (Bld) [#/Vol]Ordered By: Shad Alamo on 46-43-4316Wgilhlrvh (Bld) [#/Vol]Platelets [#/volume] in Blood by Automated -511FpmkzfunlDetwiler Memorial HospitalPlatelets [#/volume] in Blood by Automated countOrdered By: Shad Alamo on 38-67-1090Vuqkrjgff (Bld) [#/Vol] 376 10*3/aGPuiyic038-059RyfoewydmDetwiler Memorial HospitalComment on above:Order Comment: Reason for Exam Generalized anxiety disorderPerformed By: #### TSH3 wRFLX, T4F, CBC, CMP #### [facility] [address] [place] [address] USAPotassium [Moles/volume] in Serum or PlasmaOrdered By: Shad Alamo on 01-93-8104Dnrklqskq [Moles/Vol]Potassium [Moles/volume] in Serum or Plasma3.5-5.1FOhio State Harding HospitalPotassium [Moles/Vol]4.2 mmol/LNormal3.5-5.1FOhio State Harding HospitalComment on above:Order Comment: Reason for Exam Generalized anxiety disorderPerformed By: #### TSH3 wRFLX, T4F, CBC, CMP #### [facility] [address] [address] USAProtein [Mass/volume] in Serum or PlasmaOrdered By: Shad Alamo on 15-15-3745Cjdcqck [Mass/Vol]Protein [Mass/volume] in Serum or Plasma 6.4-8.9[facility] Memorial HospitalProtein [Mass/Vol]7.6 g/dLNormal6.4-8.9 [facility] HospitalComment on above:Order Comment: Reason for Exam Generalized anxiety disorderPerformed By: #### TSH3 wRFLX, T4F, CBC, CMP #### [facility] [address] [address] USARBC Auto (Bld) [#/Vol]Ordered By: Shad Alamo on 42-38-1092HIA (Bld) [#/Vol]Erythrocytes [#/volume] in Blood by Automated count 3.60-5.00Keenan Private Hospitalerum globulin measurement by calculation (mass/volume)Ordered By: Shad Alamo on 60-59-4355Agwveycp (S) [Mass/Vol]3.0 g/dLNormalDetwiler Memorial HospitalComment on above:Order Comment: Reason for Exam Generalized anxiety disorderPerformed By: #### TSH3 wRFLX, T4F, CBC, CMP #### [facility] [address] [place] [address] USASerum or plasma albumin/globulin mass ratioOrdered By: Shad Alamo on 62-96-2841Qvmuxen/Globulin [Mass ratio]Serum or plasma albumin/globulin mass ratioDetwiler Memorial HospitalAlbumin/Globulin [Mass ratio]1.5 {ratio}NormalDetwiler Memorial HospitalComment on above: Order Comment: Reason for Exam Generalized anxiety disorderPerformed By: #### TSH3 wRFLX, T4F, CBC, CMP #### [facility] [address] [place] [address] USASerum or plasma anion gap determinationOrdered By: Shad Alamo on 98-35-7292Pywfi gap [Moles/Vol]Serum or plasma anion gap determination6.0-15.0[facility] HospitalAnion gap [Moles/Vol]7.3 mmol/LNormal6.0-15.0[facility] HospitalComment on above:Order Comment: Reason for Exam Generalized anxiety disorderPerformed By: #### TSH3 wRFLX, T4F, CBC, CMP #### [place] [id number] USASodium [Moles/volume] in Serum or PlasmaOrdered By: Shad Alamo on 85-96-8439Cbbvhy [Moles/Vol]Sodium [Moles/volume] in Serum or Plasma 136-145Keenan Private Hospitalodium [Moles/Vol]136 mmol/LNormal 136-145[facility] HospitalComment on above:Order Comment: Reason for Exam Generalized anxiety disorderPerformed By: #### TSH3 wRFLX, T4F, CBC, CMP #### [address] [address] USAThyroid Stim Hormone w/Rflxon 73-59-9319Pmkaxyp Stim Hormone w/Rflx0.38 u[iU]/mLLow0.45-5.33[facility] Physician GroupComment on above:Order Comment: Reason for Exam Generalized anxiety disorderResult Comment: PERFORMED BY: [place] [address] PATHOLOGIST TIME CLERK JEAN CARLOS LYNN M.D.Performed By: #### TSH3 wRFLX, T4F, CBC, CMP #### [address] [address] USAThyrotropin [Units/volume] in Serum or PlasmaOrdered By: Shad Alamo on 10-15-4224HPB QnThyrotropin [Units/volume] in Serum or Plasma Low0.45-5.33[facility] HospitalTS Qn0.38 m[IU]/LLow0.45-5.33 [facility] HospitalThyroxine (T4) free [Mass/volume] in Serum or PlasmaOrdered By: Shad Alamo on 90-66-7481Zdcn T4 [Mass/Vol]Thyroxine (T4) free [Mass/volume] in Serum or Plasma0.61-1.12[facility] Free T4 [Mass/Vol]0.79 ng/dLNormal0.61-1.12[facility] Comment on above:Order Comment: Reason for Exam Generalized anxiety disorder Performed By: #### TSH3 wRFLX, T4F, CBC, CMP #### [facility] [address] [address] USAUrea nitrogen [Mass/volume] in Serum or PlasmaOrdered By: Shad Alamo on 45-14-7099Rcso nitrogen [Mass/Vol]Urea nitrogen [Mass/volume] in Serum or Plasma7Detwiler Memorial HospitalUrea nitrogen [Mass/Vol] 13 mg/dLNormal-[facility] HospitalComment on above:Order Comment: Reason for Exam Generalized anxiety disorderPerformed By: #### TSH3 wRFLX, T4F, CBC, CMP #### [facility] [address] [address] USAWBC Auto (Bld) [#/Vol]Ordered By: Shad Alamo on 07-18-6932TRZ (Bld) [#/Vol]Leukocytes [#/volume] in Blood by Automated count 3.8-11.6FLouis Stokes Cleveland [facility] Center Cultureon 90-31-3009Lymwafnv identified Cx Nom (U)ORGANISM: Enterococcus faecalis (O:ENTFAC) [place] Count 40,000 Aerobic JOSE Charge (PCMIC38) SUSCEPTIBILITY ORGANISM: O:ENTFAC ANTIBIOTIC INTERPRETATION JOSE Ampicillin S [...] RESISTANT TO ALL B-LACTAM DRUGS. PERFORMED BY: [place] [address] PATHOLOGIST TIME CLERK JEAN CARLOS LYNN M.D.[facility] Physician GroupComment on above: Performed By: #### TSH3 wRFLX, T4F, CBC, CMP #### [place] [address] USAStone Analysison 97-28-8373Mnhyakv descriptionSAkron Children's HospitalComment on above:Result Comment: (NOTE) Specimen consists of one brown and crane calculus. The total weight is 24 mg.Performed By: #### ASTONE #### [facility] [address] [place] [address] Flake Cutter Operator: Merrill Faulkner [facility] Comment on above:Result Comment: (NOTE) Calculi composed primarily of: 50% calcium oxalate [...] composition determined by FTIR analysis. Performed By: [facility] [address] [id number] Bilingual Executive Assistant: Andrews Marx MD, PhD CLIA Number: [id number] By: #### ASTONE #### [facility] [address] [place] [address] Flake Cutter Operator: Dwight Leess24 mgNormalAccess Hospital DaytonComment on above:Performed By: #### ASTONE #### [facility] [address] [place] [address] Flake Cutter Operator: Merrill Faulkner MDFLUORShoaib FOR SURGICAL PROCEDURESon 13-34-5956RKEWTR FOR SURGICAL PROCEDURESRadiology exam is complete. No Radiologist dictation. Please follow up with ordering provider. Final resultNormalAccess Hospital DaytonHCG, ,Urineon 74-79-5920Hrnq HCG ( test) Ql (U)NegativeNormalNEGAccess Hospital DaytonComment on above: Result Comment: Specimens with hCG levels near the threshold of the test (25 mIU/mL) may give a negative or indeterminate result. In such cases, another test should be performed with a new specimen in 48-72 hours. If early is suspected clinically in this setting, correlation with quantitative serum b-hCG level is suggested. [facility] HospitalLet's Talk [facility] has confirmed the use of plasma for this test. This has not been cleared or approved by the U.S. Food and Drug Administration. The FDA has determined that such clearance is not necessary.Performed By: #### UHCG #### [facility] [address] [place] [address] Flake Cutter Operator: Taylor Lester aminotransferase [Enzymatic activity/volume] in Serum or PlasmaOrdered By: Felix Simpson on 07-11-2024 ALT [Catalytic activity/Vol]30 U/LNormal[address] Comment on above:Performed By: #### HEPATIC, LIPASE, BMP, CBC #### [facility] [address] [place] [address] USAALT [Catalytic activity/Vol]Alanine aminotransferase [Enzymatic activity/volume] in Serum or PlasmaDetwiler Memorial HospitalAlbumin [Mass/volume] in Serum or Plasma by Bromocresol green (BCG) dye binding methoOrdered By: Felix Simpson on 40-48-5796Almhbar BCG dye [Mass/Vol]4.6 g/dL3.5-5.7FOhio State Harding HospitalAlbumin BCG dye [Mass/Vol]Albumin [Mass/volume] in Serum or Plasma by Bromocresol green (BCG) dye binding metho3.5-5.7FOhio State Harding HospitalAlkaline phosphatase [Enzymatic activity/volume] in Serum or PlasmaOrdered By: Felix Simpson on 90-74-5448PKV [Catalytic activity/Vol]58 U/CYccfzy31-730Aisfiboho50 Carey StreetComment on above:Performed By: #### HEPATIC, LIPASE, BMP, CBC #### [facility] [address] [place] [address] USAALP [Catalytic activity/Vol]Alkaline phosphatase [Enzymatic activity/volume] in Serum or Adywts72-620Lglvhclfz[address] [place], [place] [address]Appearance of UrineOrdered By: Felix Simpson on 32-62-8882Jdkndekvor (U)Urine appearanceAbnormalClearDetwiler Memorial HospitalAspartate aminotransferase [Enzymatic activity/volume] in Serum or PlasmaOrdered By: Felix Simpson on 34-95-1563ATU [Catalytic activity/Vol]24 U/MSaifjr42-73 [facility] HospitalComment on above:Performed By: #### HEPATIC, LIPASE, BMP, CBC #### [facility] [address] [place] [address] USAAST [Catalytic activity/Vol]Aspartate aminotransferase [Enzymatic activity/volume] in Serum or Lftlpg62-07LrubuhtouDetwiler Memorial HospitalAutomated basophil %Ordered By: Felix Simpson on 07-11-2024 Basophils/100 WBC (Bld)0.6 %Normal.[facility] HospitalComment on above:Performed By: #### HEPATIC, LIPASE, BMP, CBC #### [facility] [address] [place] [address] USAAutomated basophil countOrdered By: Felix Simpson on 09-16-0591Eemgltojs (Bld) [#/Vol]0.1 10*3/uLNormal0.0-0.2FOhio State Harding HospitalComment on above:Result Comment: PERFORMED BY: [place] [address] PATHOLOGIST TIME CLERK WARREN BUSTAMANTE M.D.Performed By: #### HEPATIC, LIPASE, BMP, CBC #### [facility] [address] [place] [address] USAAutomated blood monocyte countOrdered By: Felix Simpson on 88-15-8613Lijgagekz (Bld) [#/Vol]0.9 10*3/uLHigh0.0-0.8[facility] HospitalComment on above:Performed By: #### HEPATIC, LIPASE, BMP, CBC #### [facility] [address] [place] [address] USAAutomated eosinophil %Ordered By: Felix Simpson on 78-88-0044Cpxolfwhrls/100 WBC (Bld)0.6 %Normal.[facility] Comment on above:Performed By: #### HEPATIC, LIPASE, BMP, CBC #### [place] [address] USAAutomated eosinophil countOrdered By: Felix Simpson on 08-69-5295Jhoeeyummup (Bld) [#/Vol]0.1 10*3/uLNormal0.0-0.45[facility] HospitalComment on above:Performed By: #### HEPATIC, LIPASE, BMP, CBC #### [place] [address] USAAutomated monocyte %Ordered By: Felix Simpson on 25-67-0025Mfcitdzov/100 WBC (Bld)10.5 %Normal.[facility] Comment on above:Performed By: #### HEPATIC, LIPASE, BMP, CBC #### [place] [address] USAAutomated neutrophil %Ordered By: Felix Simpson on 58-89-4451Maubptnjodz/100 WBC (Bld)63.3 %Normal.[facility] HospitalComment on above:Performed By: #### HEPATIC, LIPASE, BMP, CBC #### [place] [address] USABacteria [Presence] in Urine by AutomatedOrdered By: Felix Simpson on 09-72-5297Odvyaozl Auto Ql (U)Rare [HPF]None [facility] HospitalBacteria Auto Ql (U)Bacteria [Presence] in Urine by AutomatedNone [facility] HospitalBasic Metabolic Panelon 52-96-7847Prngnwxucs Clr Calc Bhylvjjq212.53NormalThe [facility] Physician Group Comment on above:Performed By: #### TSH3 wRFLX, T4F, CBC, CMP #### [facility] [address] [place] [address] USAGFR/1.73 sq M.predicted MDRD (S/P/Bld) [Vol rate/Area] mL/min/{1.73_m2}NormalThe [facility] General Hospital Physician GroupComment on above:Performed By: #### TSH3 wRFLX, T4F, CBC, CMP #### [facility] [address] [place] [address] USABasophils Auto (Bld) [#/Vol]Ordered By: Felix Simpson on 01-46-3928Hbqjestlk (Bld) [#/Vol]Automated basophil count0.0-0.2FOhio State Harding HospitalBasophils/100 WBC Auto (Bld)Ordered By: Felix Simpson on 73-57-5273Bqluhufdp/100 WBC (Bld)Automated basophil %.[facility] Memorial HospitalBilirubin Test strip Ql (U)Ordered By: Felix Simpson on 41-78-5310Suemtyqzx Ql (U)NegativeNegativeDetwiler Memorial Hospital Bilirubin Ql (U)Bilirubin.total [Presence] in Urine by Test stripNegative [facility] HospitalBilirubin.direct [Mass/volume] in Serum or PlasmaOrdered By: Felix Simpson on 63-27-0588Rhcepwtum.direct [Mass/Vol]0.20 mg/dLHigh0.03-0.18FOhio State Harding HospitalBilirubin.direct [Mass/Vol] Bilirubin.direct [Mass/volume] in Serum or PlasmaHigh0.03-0.18FOhio State Harding HospitalBilirubin.total [Mass/volume] in Serum or PlasmaOrdered By: Felix Simpson on 49-46-6554Lvuigiitr [Mass/Vol]0.9 mg/dLNormal0.3-1.0 [facility] HospitalComment on above:Performed By: #### HEPATIC, LIPASE, BMP, CBC #### [facility] [address] [place] [address] USABilirubin [Mass/Vol]Bilirubin.total [Mass/volume] in Serum or Plasma0.3-1.0[facility] Memorial HospitalCT abdomen pelvis wo conon 48-95-4463JX abdomen pelvis wo [facility] [address] [place] [address] CT Scan Report Signed Patient: Beatris Mack MR#: [id number] : 2000 Acct:[id number] Age/Sex: 24 / F ADM Date: 07/11/24 Loc: ER Room: Type: [facility] ER Attending Dr: Copies to: Felix [...] Gayle Knox M.D.07/11/2024 3:17 PM Dictation Location: [place] [address] Transcribed By: [facility] 07/11/241516 Dictated By: Gayle Knox II, MD 07/11/241510 Signed By: 07/11/24 [facility] Physician GroupCalcium [Mass/volume] in Serum or PlasmaOrdered By: Felix Simpson on 41-03-1937Trffjvf [Mass/Vol]10.0 mg/dL Normal8.6-10.3FOhio State Harding HospitalComment on above:Performed By: #### TSH3 wRFLX, T4F, CBC, CMP #### [facility] [address] [place] [address] USACalcium [Mass/Vol]Calcium [Mass/volume] in Serum or Plasma 8.6-10.3FOhio State Harding HospitalCarbon dioxide, total [Moles/volume] in Serum or PlasmaOrdered By: Felix Simpson on 33-59-2840YB6 [Moles/Vol]24.2 mmol/HHoarev83.0-31.0[facility] HospitalComment on above:Performed By: #### TSH3 wRFLX, T4F, CBC, CMP #### [facility] [address] [place] [address] USACO2 [Moles/Vol]Carbon dioxide, total [Moles/volume] in Serum or Lnqmsh86.0-31.0[facility] Memorial HospitalChloride [Moles/volume] in Serum or PlasmaOrdered By: Felix Simpson on 74-86-2249Bqkoonfe [Moles/Vol]104 mmol/VClqfqg09-912HujmpbeliDetwiler Memorial HospitalComment on above:Performed By: #### TSH3 wRFLX, T4F, CBC, CMP #### [facility] [address] [place] [address] USAChloride [Moles/Vol]Chloride [Moles/volume] in Serum or Novwip94-882Rtbtwrekm70 Valdez StreetColor Auto (U)Ordered By: Felix Simpson on 64-23-1840Pzufh (U)Color of Urine by AutoYellowDetwiler Memorial HospitalColor of Urine by AutoOrdered By: Felix Simpson on 07-11-2024 Color (U)YellowNormalYellowDetwiler Memorial HospitalComment on above: Order Comment: Reason for Exam Generalized anxiety disorderPerformed By: #### TSH3 wRFLX, T4F, CBC, CMP #### [facility] [address] [place] [address] USAComplete Blood Count Auto Diffon 83-12-3105Hnnf Corpuscular HGB Conc33.2 g/iKVljndj75.0-35.0[facility] Physician GroupComment on above:Performed By: #### HEPATIC, LIPASE, BMP, CBC #### [place] [address] USAMonocytes/100 WBC (Bld)16.73 %Normal0.00-20.00[facility] Physician GroupComment on above:Performed By: #### HEPATIC, LIPASE, BMP, CBC #### [facility] [address] [place] [address] USANRBC%0.0 /100{WBC}Normal0-0.5[facility] Comment on above:Performed By: #### HEPATIC, LIPASE, BMP, CBC #### [facility] [address] [place] [address] USACreatinine [Mass/volume] in Serum or PlasmaOrdered By: Felix Simpson on 06-50-3605Hjvvddlwnq [Mass/Vol]0.77 mg/dLNormal0.60-1.20 [facility] HospitalComment on above:Performed By: #### TSH3 wRFLX, T4F, CBC, CMP #### [facility] [address] [place] [address] USACreatinine [Mass/Vol]Creatinine [Mass/volume] in Serum or Plasma0.60-1.20[facility] HospitalCrystals [Presence] in Urine by AutomatedOrdered By: Felix Simpson on 30-78-7149Tqheewyh Auto Ql (U)2+ [HPF] [facility] HospitalCrystals Auto Ql (U)Crystals [Presence] in Urine by AutomatedDetwiler Memorial HospitalDipstick and Microscopicon 34-78-3949Tlilcayu,UrineRareNormalNone SeenThe [facility] Hospital Physician GroupComment on above:Order Comment: Reason for Exam Generalized anxiety disorderPerformed By: #### TSH3 wRFLX, T4F, CBC, CMP #### [facility] [address] [place] [address] USABilirubin,UrineNegativeNormalNegativeAdventhealth Tampa Physician GroupComment on above:Order Comment: Reason for Exam Generalized anxiety disorderPerformed By: #### TSH3 wRFLX, T4F, CBC, CMP #### [facility] [address] [place] [address] USAGlucose Ql (U)NormalNormalNormalThe [facility] Physician GroupComment on above:Order Comment: Reason for Exam Generalized anxiety disorderPerformed By: #### TSH3 wRFLX, T4F, CBC, CMP #### [facility] [address] [place] [address] USAHyaline Casts,UrineNoneNormal0-8The [facility] Physician GroupComment on above:Order Comment: Reason for Exam Generalized anxiety disorderPerformed By: #### TSH3 wRFLX, T4F, CBC, CMP #### [facility] [address] [place] [address] USAMucus,Urine3+Critically abnormalThe [facility] Physician GroupComment on above:Order Comment: Reason for Exam Generalized anxiety disorderPerformed By: #### TSH3 wRFLX, T4F, CBC, CMP #### [facility] [address] [address] USANitrite,UrineNegativeNormalNegativeAdventhealth Tampa Physician GroupComment on above:Order Comment: Reason for Exam Generalized anxiety disorderPerformed By: #### TSH3 wRFLX, T4F, CBC, CMP #### [facility] [address] [place] [address] USAOccult Blood,Urine3+HighNegativeThe [facility] Hospital Physician GroupComment on above:Order Comment: Reason for Exam Generalized anxiety disorderPerformed By: #### TSH3 wRFLX, T4F, CBC, CMP #### [facility] [address] [place] [address] USAOthe Crystals,Urine2+NormalThe [facility] Comment on above:Order Comment: Reason for Exam Generalized anxiety disorder Performed By: #### TSH3 wRFLX, T4F, CBC, CMP #### [facility] [address] [place] [address] USARBC,UrineInnumerableHigh0-4The [facility] Comment on above:Order Comment: Reason for Exam Generalized anxiety disorder Performed By: #### TSH3 wRFLX, T4F, CBC, CMP #### [facility] [address] [place] [address] USASpecificy Lanex[place],Urine1.168Ofsb6.001-1.030The [facility] Physician GroupComment on above:Order Comment: Reason for Exam Generalized anxiety disorderPerformed By: #### TSH3 wRFLX, T4F, CBC, CMP #### [facility] [address] [place] [address] USASquamous Epithelial Cell,Rlxfc0-5Flhz6-6Gxw [facility] Physician GroupComment on above:Order Comment: Reason for Exam Generalized anxiety disorderPerformed By: #### TSH3 wRFLX, T4F, CBC, CMP #### [facility] [address] [address] USAUrobilinogen,UrineNormalNormalNormalThe [facility] Physician GroupComment on above:Order Comment: Reason for Exam Generalized anxiety disorderPerformed By: #### TSH3 wRFLX, T4F, CBC, CMP #### [facility] [address] [place] [address] USAWBC CLUMP, UrineOccasionalHighNone SeenThe [facility] Physician GroupComment on above:Order Comment: Reason for Exam Generalized anxiety disorderPerformed By: #### TSH3 wRFLX, T4F, CBC, CMP #### [facility] [address] [address] USAWBC,Sotbn04-38Chvs0-3Ina [facility] Physician GroupComment on above:Order Comment: Reason for Exam Generalized anxiety disorderPerformed By: #### TSH3 wRFLX, T4F, CBC, CMP #### [facility] [address] [address] USAEosinophils Auto (Bld) [#/Vol]Ordered By: Felix Simpson on 08-71-7761Eeytznpulgp (Bld) [#/Vol]Automated eosinophil count0.0-0.45 [facility] HospitalEosinophils/100 WBC Auto (Bld)Ordered By: Felix Simpson on 50-44-5128Wtyzbycdasu/100 WBC (Bld)Automated eosinophil %. [facility] HospitalEpithelial cells.squamous [#/area] in Urine sediment by Automated countOrdered By: Felix Simpson on 30-64-5459Tpaejssqlo cells.squamous Auto (Urine sed) [#/Area]5-9 [HPF]High062 Phillips StreetEpithelial cells.squamous Auto (Urine sed) [#/Area]Epithelial cells.squamous [#/area] in Urine sediment by Automated countHigh02FOhio State Harding HospitalErythrocyte distribution width Auto (RBC) [Ratio]Ordered By: Felix Simpson on 95-79-7000Xgrmbhsqhjy distribution width (RBC) [Ratio] Erythrocyte distribution width [Ratio] by Automated count11.9-15.3FOhio State Harding HospitalErythrocyte distribution width [Ratio] by Automated count Ordered By: Felix Simpson on 71-05-4103Jfkmgrmefii distribution width (RBC) [Ratio]14.7 %Ahsltg21.9-15.3FOhio State Harding HospitalComment on above: Performed By: #### HEPATIC, LIPASE, BMP, CBC #### [facility] [address] [address] USAErythrocytes [#/area] in Urine sediment by Automated count Ordered By: Felix Simpson on 87-04-8110QKU Auto (Urine sed) [#/Area] Innumerable [HPF]High0-4FOhio State Harding HospitalRBC Auto (Urine sed) [#/Area]Erythrocytes [#/area] in Urine sediment by Automated countHigh0-4 [facility] HospitalErythrocytes [#/volume] in Blood by Automated countOrdered By: Felix Simpson on 97-99-7038YXT (Bld) [#/Vol]4.30 10*6/uL Normal3.60-5.00[facility] HospitalComment on above:Performed By: #### HEPATIC, LIPASE, BMP, CBC #### [facility] [address] [address] USAGlobulin Calc (S) [Mass/Vol]Ordered By: Felix Simpson on 27-08-3644Tppdlfka (S) [Mass/Vol]Serum globulin measurement by calculation (mass/volume)[facility] HospitalGlucose [Mass/volume] in Serum or PlasmaOrdered By: Felix Simpson on 66-00-3865Ptixmfs [Mass/Vol]91 mg/dL Vtoojc86-337ZrstclqkaDetwiler Memorial HospitalComment on above:ADA recommended reference rangeRandom Glucose Reference Range is dependent on time and content of last meal. Glucose of more than 200 mg/dL in a nonstressed, ambulatory subject supports the diagnosisof Diabetes Mellitus.Result Comment: Random Glucose Reference Range is dependent on time and content of last meal. Glucose of more than 200 mg/dL in a nonstressed, ambulatory subject supports the diagnosis of Diabetes Mellitus. ADA recommended reference rangePerformed By: #### TSH3 wRFLX, T4F, CBC, CMP #### [facility] [address] [address] USAGlucose [Mass/Vol]Glucose [Mass/volume] in Serum or Plasma 70-100[facility] HospitalComment on above:ADA recommended reference rangeRandom Glucose Reference Range is dependent on time and content of last meal. Glucose of more than 200 mg/dL in a nonstressed, ambulatory subject supports the diagnosisof Diabetes Mellitus.Glucose [Mass/volume] in Urine by Test stripOrdered By: Felix Simpson on 79-18-5509Dmcbhwx Test strip (U) [Mass/Vol]Normal mg/dLNormalDetwiler Memorial HospitalGlucose Test strip (U) [Mass/Vol]Glucose [Mass/volume] in Urine by Test stripNormalDetwiler Memorial HospitalHCG ( test) IA.rapid Ql (U)Ordered By: Felix Simpson on 31-03-4077CPF ( test) Ql (U)NegativeDetwiler Memorial HospitalHCG ( test) Ql (U)Urine human chorionic gonadotropin (hCG) detection by immunoassayDetwiler Memorial HospitalHCG,Urineon 43-32-4217Drql HCG ( test) Ql (U)NegativeNoNovant Health Huntersville [facility] Center Physician GroupComment on above:Order Comment: Reason for Exam Generalized anxiety disorderResult Comment: PERFORMED BY: [place] [address] PATHOLOGIST TIME CLERK WARREN BUSTAMANTE M.D.Performed By: #### TSH3 wRFLX, T4F, CBC, CMP #### [facility] [address] [place] [address] USAHematocrit Auto (Bld) [Volume fraction]Ordered By: Felix Simpson on 06-96-0147Cdgpvblpvr (Bld) [Volume fraction]Hematocrit [Volume Fraction] of Blood by Automated count34.0-46.4FOhio State Harding HospitalHematocrit [Volume Fraction] of Blood by Automated countOrdered By: Felix Simpson on 08-41-9422Qzergqoocj (Bld) [Volume fraction]38.2 %Normal 34.0-46.4FOhio State Harding HospitalComment on above:Performed By: #### HEPATIC, LIPASE, BMP, CBC #### [facility] [address] [place] [address] USAHemoglobin Test strip Ql (U)Ordered By: Felix Simpson on 60-41-8743Xwalnixnfi Ql (U)3+HighNegativeDetwiler Memorial Hospital Hemoglobin Ql (U)Hemoglobin [Presence] in Urine by Test stripHighNegative [facility] HospitalHemoglobin [Mass/volume] in BloodOrdered By: Felix Simpson on 55-46-4789Lowfvzegzy (Bld) [Mass/Vol]12.7 g/dLNormal 11.8-15.4Fire[facility] Regional Medical CenterComment on above:Performed By: #### HEPATIC, LIPASE, BMP, CBC #### [facility] [address] [place] [address] USAHemoglobin (Bld) [Mass/Vol]Hemoglobin [Mass/volume] in Blood11.8-15.4FOhio State Harding HospitalHepatic Panelon 61-81-0788Ymeenah [Mass/Vol]4.6 g/dLNormal3.5-5.7The [facility] Physician GroupComment on above: Performed By: #### HEPATIC, LIPASE, BMP, CBC #### [facility] [address] [place] [address] USABilirubin,Indirect0.7 mg/dLNormalThe [facility] Physician GroupComment on above:Performed By: #### HEPATIC, LIPASE, BMP, CBC #### [facility] [address] [place] [address] USABilirubin.indirect [Mass/Vol]0.20 mg/dLHigh0.03-0.18The [facility] Physician GroupComment on above:Performed By: #### HEPATIC, LIPASE, BMP, CBC #### [facility] [address] [place] [address] USAHyaline casts [#/area] in Urine sediment by Automated countOrdered By: Felix Simpson on 60-69-5663Cggimxf casts Auto (Urine sed) [#/Area]None [LPF]0-8[facility] HospitalHyaline casts Auto (Urine sed) [#/Area]Hyaline casts [#/area] in Urine sediment by Automated count0-8 [facility] HospitalKetones Test strip Ql (U)Ordered By: Felix Simpson on 69-07-4710Ekbjfto Ql (U)Ketones [Presence] in Urine by Test stripHigh NegativeDetwiler Memorial HospitalKetones [Presence] in Urine by Test stripOrdered By: Felix Simpson on 90-03-0125Bsferev Ql (U)3+HighNegative [facility] HospitalComment on above:Order Comment: Reason for Exam Generalized anxiety disorderPerformed By: #### TSH3 wRFLX, T4F, CBC, CMP #### [facility] [address] [place] [address] USALeukocyte clumps [Presence] in Urine by AutomatedOrdered By: Felix Simpson on 37-24-6845Skitwiipn clumps Auto Ql (U)Occasional [LPF] [facility] HospitalLeukocyte clumps Auto Ql (U) Leukocyte clumps [Presence] in Urine by AutomatedUC West Chester HospitalLeukocyte esterase [Presence] in Urine by Test stripOrdered By: Felix Simpson on 57-50-7467Rjfxtqglz esterase Test strip Ql (U)Negative NormalNegMiddletown HospitalComment on above:Order Comment: Reason for Exam Generalized anxiety disorderPerformed By: #### TSH3 wRFLX, T4F, CBC, CMP #### [facility] [address] [address] USALeukocyte esterase Test strip Ql (U)Leukocyte esterase [Presence] in Urine by Test stripNegMiddletown Hospital Leukocytes [#/area] in Urine sediment by Automated countOrdered By: Felix Simpson on 09-98-7874VPM Auto (Urine sed) [#/Area]10 [HPF][address] Williams StreetWBC Auto (Urine sed) [#/Area]Leukocytes [#/area] in Urine sediment by Automated count98 Williams StreetLeukocytes [#/volume] corrected for nucleated erythrocytes in Blood by Automated coun Ordered By: Felix Simpson on 30-17-1184PDY corrected for nucl RBC Auto (Bld) [#/Vol]8.8 10*3/uL3.8-11.6FOhio State Harding HospitalWBC corrected for nucl RBC Auto (Bld) [#/Vol]Leukocytes [#/volume] corrected for nucleated erythrocytes in Blood by Automated coun3.8-11.6FOhio State Harding Hospital Leukocytes [#/volume] in Blood by Automated countOrdered By: Felix Simpson on 40-47-8376XXE (Bld) [#/Vol]8.8 10*3/uLNormal3.8-11.[address] [place], [place] [address]Comment on above:Performed By: #### HEPATIC, LIPASE, BMP, CBC #### [facility] [address] [address] USALipase [Enzymatic activity/volume] in Serum or Plasma Ordered By: Felix Simpson on 89-05-8710Kasjkg [Catalytic activity/Vol]26.0 U/KXesphu44.0-82.0[facility] HospitalComment on above:Result Comment: PERFORMED BY: [place] [id number] PATHOLOGIST TIME CLERK WARREN BUSTAMANTE M.D.Performed By: #### TSH3 wRFLX, T4F, CBC, CMP #### [facility] [address] [place] [address] USALipase [Catalytic activity/Vol]Lipase [Enzymatic activity/volume] in Serum or Jndppw75.0-82.0[facility] Lymphocytes Auto (Bld) [#/Vol]Ordered By: Felix Simpson on 07-11-2024 Lymphocytes (Bld) [#/Vol]Lymphocytes [#/volume] in Blood by Automated count 1.00-4.8[facility] HospitalLymphocytes [#/volume] in Blood by Automated countOrdered By: Felix Simpson on 82-95-7420Zmtothhqkae (Bld) [#/Vol]2.2 10*3/uLNormal1.00-4.8[facility] HospitalComment on above:Performed By: #### HEPATIC, LIPASE, BMP, CBC #### [facility] [address] [place] [address] USALymphocytes/100 WBC Auto (Bld)Ordered By: Felix Simpson on 28-67-4585Ghrizcwexhm/100 WBC (Bld)Lymphocytes/100 leukocytes in Blood by Automated count.[facility] HospitalLymphocytes/100 leukocytes in Blood by Automated countOrdered By: Felix Simpson on 16-49-1268Odxccoerndd/100 WBC (Bld)25.0 %Normal.[facility] HospitalComment on above:Performed By: #### HEPATIC, LIPASE, BMP, CBC #### [address] [address] USAH Auto (RBC) [Entitic mass]Ordered By: Felix Simpson on 35-79-5292IHT (RBC) [Entitic mass]MCH [Entitic mass] by Automated count 24.7-34.3FKet[facility] Hamilton [Entitic mass] by Automated count Ordered By: Felix Simpson on 11-21-9059AXV (RBC) [Entitic mass]29.5 pgNormal 24.7-34.3FOhio State Harding HospitalComment on above:Performed By: #### HEPATIC, LIPASE, BMP, CBC #### [facility] [address] [address] USAHC Auto (RBC) [Mass/Vol]Ordered By: Felix Simpson on 19-62-2853ERNJ (RBC) [Mass/Vol]33.2 g/dL32.0-35.0[facility] HospitalHC (RBC) [Mass/Vol]MCHC [Mass/volume] by Automated count32.0-35.0 [facility] HospitalV Auto (RBC) [Entitic vol]Ordered By: Felix Simpson on 89-59-7401AGX (RBC) [Entitic vol]MCV [Entitic volume] by Automated mpgog38-541HjxebkydbLima Memorial HospitalV [Entitic volume] by Automated countOrdered By: Felix Simpson on 11-64-3683DQI (RBC) [Entitic vol]88.9 yGHtvudh95-091ImgzpzjfuDetwiler Memorial HospitalComment on above: Performed By: #### HEPATIC, LIPASE, BMP, CBC #### [facility] [address] [address] USAMonocyte distribution width [Entitic volume] in Blood by AutomatedOrdered By: Felix Simpson on 87-31-8794Izzdreko distribution width Auto (Bld) [Entitic vol]16.73 %0.00-20.00[facility] Monocyte distribution width Auto (Bld) [Entitic vol]Monocyte distribution width [Entitic volume] in Blood by Automated0.00-20.00[facility] HospitalMonocytes Auto (Bld) [#/Vol]Ordered By: Felix Simpson on 07-11-2024 Monocytes (Bld) [#/Vol]Automated blood monocyte countHigh0.0-0.8[facility] HospitalMonocytes/100 WBC Auto (Bld)Ordered By: Felix Simpson on 85-52-2488Ohxseuqfv/100 WBC (Bld)Automated monocyte %.[facility] HospitalMucus [Presence] in Urine by AutomatedOrdered By: Felix Simpson on 44-40-6271Kyelb Auto Ql (U)3+ [LPF]AbnormalDetwiler Memorial HospitalMucus Auto Ql (U)Mucus [Presence] in Urine by AutomatedAbnormalDetwiler Memorial HospitalNeutrophils Auto (Bld) [#/Vol]Ordered By: Felix Simpson on 72-91-9452Ukapuwfflsp (Bld) [#/Vol]Neutrophils [#/volume] in Blood by Automated count1.8-7.7FOhio State Harding HospitalNeutrophils [#/volume] in Blood by Automated countOrdered By: Felix Simpson on 07-11-2024 Neutrophils (Bld) [#/Vol]5.5 10*3/uLNormal1.8-7.7FOhio State Harding HospitalComment on above:Performed By: #### HEPATIC, LIPASE, BMP, CBC #### [facility] [address] [place] [address] USANeutrophils/100 WBC Auto (Bld)Ordered By: Felix Simpson on 22-45-6196Phsdoprjcwb/100 WBC (Bld)Automated neutrophil %.[facility] HospitalNitrite Test strip Ql (U)Ordered By: Felix Simpson on 86-18-5032Nbeutss Ql (U)NegativeNegativeDetwiler Memorial Hospital Nitrite Ql (U)Nitrite [Presence] in Urine by Test stripNegativeDetwiler Memorial HospitalNo Panel InformationOrdered By: Felix Simpson on 50-64-4404Snlhkwrwb GFR (CKD-EPI)> 60.0 mL/MinDetwiler Memorial Hospital Pharmacy Creatinine Clearance (Ygtb727.53[facility] Nucleated erythrocytes [Presence] in Blood by Automated countOrdered By: Felix Simpson on 12-72-3951Mddzgxemr RBC Auto Ql (Bld)0.0 /100{WBC}0-0.5 [facility] HospitalNucleated RBC Auto Ql (Bld)Nucleated erythrocytes [Presence] in Blood by Automated count0-0.5FOhio State Harding HospitalPlatelet mean volume Auto (Bld) [Entitic vol]Ordered By: Felix Simpson on 01-63-3714Cunclnpo mean volume (Bld) [Entitic vol]Platelet mean volume [Entitic volume] in Blood by Automated count6.3-10.7FOhio State Harding HospitalPlatelet mean volume [Entitic volume] in Blood by Automated count Ordered By: Felix Simpson on 06-52-1449Udbleblo mean volume (Bld) [Entitic vol]8.8 fLNormal6.3-10.7FOhio State Harding HospitalComment on above: Performed By: #### HEPATIC, LIPASE, BMP, CBC #### [facility] [address] [address] USAPlatelets Auto (Bld) [#/Vol]Ordered By: Felix Simpson on 65-92-3075Psunioscl (Bld) [#/Vol]Platelets [#/volume] in Blood by Automated ggbot779-423YguhmahfgDetwiler Memorial HospitalPlatelets [#/volume] in Blood by Automated countOrdered By: Felix Simpson on 71-00-2307Tlculbzui (Bld) [#/Vol]300 10*3/mHYrekfh519-548ItjtkxfivDetwiler Memorial HospitalComment on above:Performed By: #### HEPATIC, LIPASE, BMP, CBC #### [facility] [address] [address] USAPotassium [Moles/volume] in Serum or PlasmaOrdered By: Felix Simpson on 72-40-0421Xjquorwou [Moles/Vol]3.7 mmol/LNormal3.5-5.1 [facility] HospitalComment on above:Performed By: #### TSH3 wRFLX, T4F, CBC, CMP #### [facility] [address] [address] USAPotassium [Moles/Vol]Potassium [Moles/volume] in Serum or Plasma3.5-5.1FOhio State Harding HospitalProtein Test strip (U) [Mass/Vol] Ordered By: Felix Simpson on 84-16-8897Aoojhzp (U) [Mass/Vol]Protein [Mass/volume] in Urine by Test stripHighNegMiddletown HospitalProtein [Mass/volume] in Serum or PlasmaOrdered By: Felix Simpson on 32-56-1678Mdbpzii [Mass/Vol]7.6 g/dLNormal6.4-8.9[facility] HospitalComment on above:Performed By: #### HEPATIC, LIPASE, BMP, CBC #### [facility] [address] [place] [address] USAProtein [Mass/Vol]Protein [Mass/volume] in Serum or Plasma 6.4-8.9[facility] HospitalProtein [Mass/volume] in Urine by Test stripOrdered By: Felix Simpson on 31-58-2823Swgfviz (U) [Mass/Vol]50 mg/dL HighNegMiddletown HospitalComment on above:Order Comment: Reason for Exam Generalized anxiety disorderPerformed By: #### TSH3 wRFLX, T4F, CBC, CMP #### [facility] [address] [address] USARBC Auto (Bld) [#/Vol]Ordered By: Felix Simpson on 95-97-0293PHU (Bld) [#/Vol]Erythrocytes [#/volume] in Blood by Automated count 3.60-5.00[facility] Private Hospitalerum globulin measurement by calculation (mass/volume)Ordered By: Felix Simpson on 85-79-1437Jmuhxnji (S) [Mass/Vol]3.0 g/dLNormalDetwiler Memorial HospitalComment on above: Performed By: #### HEPATIC, LIPASE, BMP, CBC #### [facility] [address] [place] [address] USASerum or plasma albumin/globulin mass ratioOrdered By: Felix Simpson on 53-75-2331Jqjwoqr/Globulin [Mass ratio]1.5 {ratio}Normal [facility] HospitalComment on above:Performed By: #### HEPATIC, LIPASE, BMP, CBC #### [facility] [address] [place] [address] USAAlbumin/Globulin [Mass ratio]Serum or plasma albumin/globulin mass ratioKeenan Private Hospitalerum or plasma anion gap determinationOrdered By: Felix Simpson on 31-88-4475Jinjd gap [Moles/Vol]9.5 mmol/LNormal6.0-15.0[facility] HospitalComment on above:Performed By: #### TSH3 wRFLX, T4F, CBC, CMP #### [facility] [address] [place] [address] USAAnion gap [Moles/Vol]Serum or plasma anion gap determination6.0-15.0[facility] Hospitalerum or plasma non- glucuronidated bilirubin measurement (mass/volume)Ordered By: Felix Simpson on 95-54-5706Ruriseghm.indirect [Mass/Vol]0.7 mg/dLDetwiler Memorial HospitalBilirubin.indirect [Mass/Vol]Serum or plasma non-glucuronidated bilirubin measurement (mass/volume)[facility] Hospitalodium [Moles/volume] in Serum or PlasmaOrdered By: Felix Simpson on 46-44-1562Ygskiz [Moles/Vol] 134 mmol/GAbs854-018ZtnfarfgjDetwiler Memorial HospitalComment on above:Performed By: #### TSH3 wRFLX, T4F, CBC, CMP #### [facility] [address] [place] [address] USASodium [Moles/Vol]Sodium [Moles/volume] in Serum or Plasma Deh090-734YrfpzzrvkKeenan Private Hospitalpecific gravity Test strip (U) [Rel density]Ordered By: Felix Simpson on 29-11-4072Uuuuobsn gravity (U) [Rel density]1.752Lkic5.001-1.030[facility] Hospitalpecific gravity (U) [Rel density]Specific gravity of Urine by Test stripHigh1.001-1.030[facility] HospitalUrea nitrogen [Mass/volume] in Serum or PlasmaOrdered By: Felix Simpson on 75-16-1077Vsoh nitrogen [Mass/Vol]17 mg/dLNormal04-14 [facility] HospitalComment on above:Performed By: #### TSH3 wRFLX, T4F, CBC, CMP #### [facility] [address] [place] [address] USAUrea nitrogen [Mass/Vol]Urea nitrogen [Mass/volume] in Serum or Plasma04-14[facility] Memorial HospitalUrine appearanceOrdered By: Felix Simpson on 42-24-5656Uinccvkoqm (U)CloudyCritically abnormalClear [facility] HospitalComment on above:Order Comment: Reason for Exam Generalized anxiety disorderPerformed By: #### TSH3 wRFLX, T4F, CBC, CMP #### [facility] [address] [place] [address] USAUrobilinogen Test strip (U) [Mass/Vol]Ordered By: Felix Simpson on 08-88-5604Yhtimcihxqmz (U) [Mass/Vol]Normal mg/dLNormal [facility] HospitalUrobilinogen (U) [Mass/Vol]Urobilinogen [Mass/volume] in Urine by Test stripNormMagruder HospitalWBC Auto (Bld) [#/Vol]Ordered By: Felix Simpson on 46-77-3747WHT (Bld) [#/Vol] Leukocytes [#/volume] in Blood by Automated count3.8-11.6FOhio State Harding HospitalpH Test strip (U)Ordered By: Felix Simpson on 01-40-6285cV (U) pH of Urine by Test strip5.0-9.0[facility] HospitalpH of Urine by Test stripOrdered By: Felix Simpson on 27-62-8822uS (U)6.0 [pH]Normal5.0-9.0 [facility] HospitalComment on above:Order Comment: Reason for Exam Generalized anxiety disorderPerformed By: #### TSH3 wRFLX, T4F, CBC, CMP #### [facility] [address] [place] [address] USAAutomated erythrocytes count in urine sediment (number/area)Ordered By: Elias Rogers on 44-66-5528XCO Auto (Urine sed) [#/Area]0-1 [HPF]0-4FOhio State Harding HospitalAutomated leukocytes count in urine sediment (number/area)Ordered By: Elias Rogers on 36-39-6780ZDJ Auto (Urine sed) [#/Area]10-19 [HPF]0-4FOhio State Harding HospitalBilirubin Test strip Ql (U)Ordered By: Elias Rogers on 62-98-2900Zocvvbhhl Ql (U)Negative NegativeDetwiler Memorial HospitalColor Auto (U)Ordered By: Elias Rogers on 87-34-9805Wdpdc (U)YellowYellowDetwiler Memorial HospitalHCG ( test) IA.rapid Ql (U)Ordered By: ALEX AZUL on 02-91-2623TQJ ( test) Ql (U)NegativeDetwiler Memorial HospitalKetones Auto test strip (U) [Mass/Vol]Ordered By: Elias Rogers on 61-22-3345Qhghfyd (U) [Mass/Vol]TraceNegativeDetwiler Memorial HospitalLaboratory - Urinalysis Ordered By: Elias Rogers on 88-25-9106Sjmtogu casts LM Ql (Urine sed)0-1 [LPF] 0-8[facility] Memorial HospitalNitrite Test strip Ql (U)Ordered By: Elias Rogers on 88-31-0019Stvzvax Ql (U)NegativeNegMiddletown HospitalProtein Auto test strip (U) [Mass/Vol]Ordered By: Elias Rogers on 67-44-6127Ewvunso (U) [Mass/Vol]NegativeNegGrant Hospitalpecific gravity Auto test strip (U) [Rel density]Ordered By: Elias Rogers on 12-91-8522Hqshszku gravity (U) [Rel density]1.0281.001-1.030 [facility] Hospitalquamous epithelial cells detection in urine sediment by light microscopyOrdered By: Elias Rogers on 90-69-3538Zcltrcfutt cells.squamous LM Ql (Urine sed)5-9 [HPF]0-2FOhio State Harding Hospital Urine bacteria detection by automated methodOrdered By: Elias Rogers on 83-57-5114Izwekvet Auto Ql (U)1+None SeenDetwiler Memorial HospitalUrine clarity by refractometry automatedOrdered By: Elias Rogers on 31-90-1589Vsqesdw Refractometry automated (U)ClearClearFOhio State Harding HospitalUrine glucose measurement by automated test strip (mass/volume)Ordered By: Elias Rogers on 97-35-1412Xrvbznq Auto test strip (U) [Mass/Vol]Normal mg/dLNormal [facility] HospitalUrine hemoglobin detection by automated test stripOrdered By: Elias Rogers on 09-01-9157Ycneillqhf Auto test strip Ql (U) NegativeNegMiddletown HospitalUrine leukocyte esterase detection by automated test stripOrdered By: Elias Rogers on 01-15-2024 Leukocyte esterase Auto test strip Ql (U)2+NegativeDetwiler Memorial HospitalUrobilinogen Auto test strip (U) [Mass/Vol]Ordered By: Elias Rogers on 04-27-2157Fculhmwulfrt (U) [Mass/Vol]Normal mg/dLNormalDetwiler Memorial HospitalpH Auto test strip (U)Ordered By: Elias Rogers on 61-10-9019eT (U)6.0 [pH]5.0-9.0[facility] HospitalAutomated erythrocytes count in urine sediment (number/area)Ordered By: Cecilio Brody on 91-40-1085SYK Auto (Urine sed) [#/Area]10-19 [HPF]0-4FOhio State Harding Hospital Automated leukocytes count in urine sediment (number/area)Ordered By: Cecilio Brody on 67-41-4421EXD Auto (Urine sed) [#/Area]5-9 [HPF]0-4FOhio State Harding HospitalBilirubin Test strip Ql (U)Ordered By: Cecilio Brody on 51-35-5881Pwazrhcsr Ql (U)NegativeNegMiddletown Hospital Color Auto (U)Ordered By: Cecilio Brody on 48-39-6474Rtnvm (U)YellowMemorial HospitalHCG ( test) IA.rapid Ql (U)Ordered By: Cecilio Brody on 28-77-7216CRG ( test) Ql (U)NegativeDetwiler Memorial HospitalKetones Auto test strip (U) [Mass/Vol]Ordered By: Cecilio Brody on 61-14-5589Ncmbgcd (U) [Mass/Vol]NegativeNegMiddletown HospitalLaboratory - UrinalysisOrdered By: Cecilio Brody on 10-14-2023 Hyaline casts LM Ql (Urine sed)0-8 [LPF]0-8[facility] Nitrite Test strip Ql (U)Ordered By: Cecilio Brody on 86-02-5534Fffhobf Ql (U)NegativeNegMiddletown HospitalProtein Auto test strip (U) [Mass/Vol]Ordered By: Cecilio Brody on 27-62-8322Fhtghof (U) [Mass/Vol] NegativeNegGrant Hospitalpecific gravity Auto test strip (U) [Rel density]Ordered By: Cecilio Brody on 32-19-0173Gfqxsmnm gravity (U) [Rel density]1.0221.001-1.030[facility] Squamous epithelial cells detection in urine sediment by light microscopyOrdered By: Cecilio Brody on 12-63-3210Gvzlzhufwy cells.squamous LM Ql (Urine sed)3-4 [HPF]0-2FOhio State Harding HospitalTrichomonas vaginalis detection by wet preparationOrdered By: Cecilio Brody on 10-14-2023T. vaginalis Wet prep Ql (Unsp spec)[facility] HospitalUrine bacteria detection by automated methodOrdered By: Cecilio Brody on 59-13-4689Ncrmlwoz Auto Ql (U) None seenNone SeenDetwiler Memorial HospitalUrine clarity by refractometry automatedOrdered By: Cecilio Brody on 26-95-8067Mzirlet Refractometry automated (U)ClearCleElyria Memorial HospitalUrine glucose measurement by automated test strip (mass/volume)Ordered By: Cecilio Brody on 75-67-1743Vxhcnum Auto test strip (U) [Mass/Vol]Normal mg/dLNoal [facility] HospitalUrine hemoglobin detection by automated test stripOrdered By: Cecilio Brody on 98-14-7967Vghdjxoykz Auto test strip Ql (U) NegativeNegMiddletown HospitalUrine leukocyte esterase detection by automated test stripOrdered By: Cecilio Brody on 10-14-2023 Leukocyte esterase Auto test strip Ql (U)2+NegativeDetwiler Memorial HospitalUrobilinogen Auto test strip (U) [Mass/Vol]Ordered By: Cecilio Brody on 18-93-1182Jyzjoacdgpzt (U) [Mass/Vol]Normal mg/dLNoUniversity Hospitals Portage Medical CenterpH Auto test strip (U)Ordered By: Cecilio Brody on 73-35-8259tD (U)6.0 [pH]5.0-9.0[facility] HospitalAutomated erythrocytes count in urine sediment (number/area)Ordered By: Felix Simpson on 32-84-0595JIP Auto (Urine sed) [#/Area]3-4 [HPF]0-4FOhio State Harding HospitalAutomated leukocytes count in urine sediment (number/area)Ordered By: eFlix Simpson on 66-11-7245ASG Auto (Urine sed) [#/Area]5-9 [HPF]0-4FOhio State Harding HospitalBacteria identified Aer cx Nom (Genital specimen)Ordered By: Felix Simpson on 49-41-3971Tazzeqy CultureGardnerella vaginalisDetwiler Memorial HospitalBilirubin Test strip Ql (U)Ordered By: Felix Simpson on 63-87-4225Fiybrarjh Ql (U)NegativeNegativeDetwiler Memorial HospitalColor Auto (U)Ordered By: Felix Simpson on 88-22-9416Yxcbz (U)YellowYellow [facility] HospitalFungal cultureOrdered By: Felix Simpson on 03-07-6845Rmtsaa identified Cx Nom (Unsp spec)[facility] HCG ( test) IA.rapid Ql (U)Ordered By: Felix Simpson on 08-26-2023 HCG ( test) Ql (U)NegativeDetwiler Memorial HospitalKetones Auto test strip (U) [Mass/Vol]Ordered By: Felix Simpson on 88-74-5638Xtclhxg (U) [Mass/Vol]NegativeNegMiddletown HospitalLaboratory - Microbiology and Antimicrobial susceptibilityOrdered By: Felix Simpson on 08-26-2023. trachomatis DNA LEV+probe Ql (Unsp spec)NegativeNegMiddletown HospitalN. gonorrhoeae DNA LEV+probe Ql (Unsp spec)Negative NegativeDetwiler Memorial HospitalComment on above:Performed at: =[address] [id number] Director: Mavis Sow MD, Phone: [phone] - UrinalysisOrdered By: Felix Simpson on 92-22-4292Orzvaov casts LM Ql (Urine sed)0-8 [LPF]0-8[facility] HospitalNitrite Test strip Ql (U)Ordered By: Felix Simpson on 73-05-0477Kvdxqoz Ql (U)NegativeNegativeDetwiler Memorial HospitalProtein Auto test strip (U) [Mass/Vol]Ordered By: Felix Simpson on 08-26-2023 Protein (U) [Mass/Vol]NegativeNegativeKeenan Private Hospitalpecific gravity Auto test strip (U) [Rel density]Ordered By: Felix Simpson on 83-97-1510Vudnbbuh gravity (U) [Rel density]1.0201.001-1.030[facility] Private Hospitalquamous epithelial cells detection in urine sediment by light microscopyOrdered By: Felix Simpson on 36-02-5395Nrnyulxtex cells.squamous LM Ql (Urine sed)3-4 [HPF]0-2FOhio State Harding HospitalTrichomonas vaginalis detection by wet preparationOrdered By: Felix Sipmson on 08-26-2023T. vaginalis Wet prep Ql (Unsp spec)[facility] Urine bacteria detection by automated methodOrdered By: Felix Simpson on 12-31-4012Nvskpyuk Auto Ql (U)None seenNone SeenDetwiler Memorial HospitalUrine clarity by refractometry automatedOrdered By: Felix Simpson on 09-37-3540Frxgvsg Refractometry automated (U)ClearCleElyria Memorial HospitalUrine culture routineOrdered By: Felix Simpson on 08-26-2023 Bacteria identified Cx Nom (U)2 DaysDetwiler Memorial HospitalUrine glucose measurement by automated test strip (mass/volume)Ordered By: Felix Simpson on 84-29-2776Sxmstsy Auto test strip (U) [Mass/Vol]Normal mg/dLNormal [facility] HospitalUrine hemoglobin detection by automated test stripOrdered By: Felix Simpson on 15-66-8967Awvhjfeogy Auto test strip Ql (U)2+NegativeDetwiler Memorial HospitalUrine leukocyte esterase detection by automated test stripOrdered By: Felix Simpson on 28-27-7092Mqbcjtfwr esterase Auto test strip Ql (U)1+NegativeDetwiler Memorial Hospital Urobilinogen Auto test strip (U) [Mass/Vol]Ordered By: Felix Simpson on 84-97-3796Guhrjmiianpc (U) [Mass/Vol]Normal mg/dLNormalDetwiler Memorial HospitalpH Auto test strip (U)Ordered By: Felix Simpson on 08-26-2023 pH (U)5.5 [pH]5.0-9.0Det[facility] HospitalAutomated erythrocytes count in urine sediment (number/area)Ordered By: Aura Brown on 12-20-2022 RBC Auto (Urine sed) [#/Area]5-9 [HPF]0-4FOhio State Harding Hospital Automated leukocytes count in urine sediment (number/area)Ordered By: Aura Brown on 92-79-8416QYN Auto (Urine sed) [#/Area]50-100 [HPF]0-4FOhio State Harding HospitalBilirubin Test strip Ql (U)Ordered By: Aura Brown on 46-54-8463Izirqnjej Ql (U)NegativeNegativeDetwiler Memorial Hospital Color Auto (U)Ordered By: Aura Brown on 95-57-5297Pjhcb (U)YellowYellow [facility] HospitalFungal cultureOrdered By: Aura Brown on 70-77-5861Axwmnm identified Cx Nom (Unsp spec)[facility] HCG ( test) IA.rapid Ql (U)Ordered By: Aura Brown on 93-64-6272WVB ( test) Ql (U)PositiveDetwiler Memorial HospitalKetones Auto test strip (U) [Mass/Vol]Ordered By: Aura Brown on 27-38-1440Oqlyyyu (U) [Mass/Vol]NegativeNegativeDetwiler Memorial HospitalLaboratory - UrinalysisOrdered By: Aura Brown on 56-86-7318Klbkukv casts LM Ql (Urine sed)0-8 [LPF]0-8[facility] Memorial HospitalNitrite Test strip Ql (U) Ordered By: Aura Brown on 74-36-5331Qipwpxo Ql (U)PositiveNegMiddletown HospitalProtein Auto test strip (U) [Mass/Vol]Ordered By: Aura Brown on 67-75-4240Fxzssze (U) [Mass/Vol]NegativeNegGrant Hospitalpecific gravity Auto test strip (U) [Rel density]Ordered By: Aura Brown on 20-02-1209Ffuxxaxf gravity (U) [Rel density]1.019 1.001-1.030[facility] Private Hospitalquamous epithelial cells detection in urine sediment by light microscopyOrdered By: Aura Brown on 12-20-2022 Epithelial cells.squamous LM Ql (Urine sed)5-9 [HPF]0-2FOhio State Harding HospitalTrichomonas vaginalis detection by wet preparationOrdered By: Aura Brown on 12-20-2022T. vaginalis Wet prep Ql (Unsp spec)[facility] HospitalUrine bacteria detection by automated methodOrdered By: Aura Brown on 53-04-3099Kidlhecq Auto Ql (U)2+None SeenDetwiler Memorial HospitalUrine clarity by refractometry automatedOrdered By: Aura Brown on 11-40-4868Aagaisk Refractometry automated (U)CloudyClearFOhio State Harding HospitalUrine glucose measurement by automated test strip (mass/volume)Ordered By: Aura Brown on 03-69-3371Cgquawb Auto test strip (U) [Mass/Vol]Normal mg/dLNormMagruder HospitalUrine hemoglobin detection by automated test stripOrdered By: Aura Brown on 88-50-7706Ckikdpqtas Auto test strip Ql (U)NegativeNegMiddletown HospitalUrine leukocyte esterase detection by automated test stripOrdered By: Aura Brown on 83-38-6888Zgkjkzkyz esterase Auto test strip Ql (U)4+ NegativeDetwiler Memorial HospitalUrobilinogen Auto test strip (U) [Mass/Vol]Ordered By: Aura Brown on 74-93-3212Mxxzlbnrtuqj (U) [Mass/Vol] Normal mg/dLNormMagruder HospitalpH Auto test strip (U)Ordered By: Aura Brown on 80-38-2621bW (U)5.5 [pH]5.0-9.0[facility] HospitalAutomated erythrocytes count in urine sediment (number/area) Ordered By: Lilliam Linares on 25-34-4567YUW Auto (Urine sed) [#/Area]3-4 [HPF]0-4 [facility] HospitalAutomated leukocytes count in urine sediment (number/area)Ordered By: Lilliam Linares on 98-28-5504XGI Auto (Urine sed) [#/Area]20-49 [HPF]0-4FOhio State Harding HospitalBilirubin Test strip Ql (U)Ordered By: Lilliam Linares on 02-07-9790Hmosedzcv Ql (U)NegativeNegative [facility] HospitalCasts typing in urine sediment by light microscopyOrdered By: Lilliam Linares on 27-81-4195Czhmn LM Nom (Urine sed)None seen [LPF]None SeenDetwiler Memorial HospitalColor Auto (U)Ordered By: Lilliam Linares on 34-14-7659Rghix (U)YellowYellowDetwiler Memorial HospitalHCG ( test) IA.rapid Ql (U)Ordered By: Lilliam Linares on 75-23-5284KEW ( test) Ql (U)NegativeDetwiler Memorial Hospital Ketones Auto test strip (U) [Mass/Vol]Ordered By: Lilliam Linares on 08-22-2022 Ketones (U) [Mass/Vol]TraceNegativeDetwiler Memorial HospitalLaboratory - UrinalysisOrdered By: Lilliam Linares on 56-13-3845Gryxazu casts LM Ql (Urine sed)0-8 [LPF]0-8[facility] Memorial HospitalNitrite Test strip Ql (U) Ordered By: Lilliam Linares on 65-78-3040Bbqrrqs Ql (U)NegativeNegativeDetwiler Memorial HospitalProtein Auto test strip (U) [Mass/Vol]Ordered By: Lilliam Linares on 31-82-0302Gdfxpiq (U) [Mass/Vol]NegativeNegativeKeenan Private Hospitalpecific gravity Auto test strip (U) [Rel density]Ordered By: Lilliam Linares on 42-02-2787Qkbtuozb gravity (U) [Rel density]1.0191.001-1.030 [facility] Hospitalquamous epithelial cells detection in urine sediment by light microscopyOrdered By: Lilliam Linares on 78-11-3435Byefwwmiys cells.squamous LM Ql (Urine sed)5-9 [HPF]0-2FOhio State Harding Hospital Trichomonas vaginalis detection in urine sediment by light microscopyOrdered By: Lilliam Linares on 08-22-2022T. vaginalis LM Ql (Urine sed)0-1 [HPF]None Seen [facility] HospitalUrine bacteria detection by automated method Ordered By: Lilliam Linares on 67-70-2142Hgsmgwvy Auto Ql (U)None seenNone Seen [facility] HospitalUrine clarity by refractometry automatedOrdered By: Lilliam Linares on 18-12-9567Tpertrr Refractometry automated (U)ClearClear [facility] HospitalUrine glucose measurement by automated test strip (mass/volume)Ordered By: Lilliam Linares on 55-07-5906Ebeaxpl Auto test strip (U) [Mass/Vol]Normal mg/dLNormalDetwiler Memorial HospitalUrine hemoglobin detection by automated test stripOrdered By: Lilliam Linares on 78-43-0320Mglbsqaiik Auto test strip Ql (U)NegativeNegativeDetwiler Memorial HospitalUrine leukocyte esterase detection by automated test stripOrdered By: Lilliam Linares on 74-63-4005Dmgosoyrn esterase Auto test strip Ql (U)4+ NegativeDetwiler Memorial HospitalUrine sediment renal epithelial cell count by microscopy (number/high power field)Ordered By: Lilliam Linares on 69-17-2847Brmyjfqrin cells.renal LM.HPF (Urine sed) [#/Area]None seen [HPF]0-1 [facility] HospitalUrobilinogen Auto test strip (U) [Mass/Vol] Ordered By: Lilliam Linares on 18-72-9763Obxdavnklxeg (U) [Mass/Vol]Normal mg/dL NormalDetwiler Memorial HospitalpH Auto test strip (U)Ordered By: Lilliam Linares on 31-53-2003uZ (U)6.0 [pH]5.0-9.0[facility] HospitalXR KNEE LT 4V or >on 95-90-4427MA KNEE LT 4V or >EXAM: XR KNEE LT 4V or > HISTORY: [...] Electronically authenticated by: Yared JOYNER Date: 2022-06-07 02:[address] [place], [place] [address]Coding Summaryon 62-90-2118Eqefqi SummaryMLBase 64 DqpsriwiPMn0sEp+PGhlYWQ+QQ9VSTFlA22qpYUydV0MM8uHZO9RUDOYVWFTWJ7QZP3ceIV9DDwlF2Cq biAv [file] bGx (more content not included)...NormalMercy Health St. Anne Hospital HospitalCoding SummaryHTMLBase 64 MjgsxnbaFTe9pUh+PGhlYWQ+PU2SYPXcL39awVJefZ9JU4zJKY2LIAPHQINUVU0XXF2xsVU2BLycZ9Qf biAv [file] cHN (more content not included)...TriHealthED Note-Nursingon 25-05-9453DP Note-NursingPt called and spoke with Von BOYCE. Pt stated her dog ate her prescription. Script for Flagyl 500 mg 1 tab BID x7 days called into [facility] pharmacy per pt request.TriHealthChlamydia/GC Amplification LCon 47-02-6765Ptkdwxoic trachomatis, LEV LCPositiveAbnormal NegativeWilson Street HospitalComment on above:Performed By: #### [id number] ####[facility] (DEFAULT)[address] [place], [place] [address]Neisseria gonorrhoeae, LEV LCNegativeInvalid Interpretation CodeNegMarietta Memorial Hospital Comment on above:Result Comment: Performed At: =[address] [id number] Magi Mcintyre MD Ph:[phone] By: #### [id number] ####[facility] (DEFAULT)[address] [place], [place] [address]CR Note - Otheron 66-18-5346EV Note - [id number]#1.00OTGTMcCullough-Hyde Memorial HospitalED Note - OtherPt positive for chlamydia. Dr. Olivares notified. He faxed Rx doxycycline to [facility] pharmacy, [address] Pt notified of results. Instructed to notify any sexual partners and to follow up with [employer] MD. She verbalizes understanding. [Electronically Signed on: 08/21/2021 13:27 EST] Janell Novoa RN [Verified on: 08/21/2021 13:27 EST] Afua Novoa RNNorwalk Memorial HospitalED Note - Physicianon 56-75-2026YE Note - PhysicianPatient: BEATRIS MACK Age: 21 years Sex: FEMALE : 2000 Associated Diagnoses: None Author: Joel Olivares MD Addendum Rad-Lab Results Addendum: Report: 08/21/2021 10:45:00 . Patient had chlamydia sent out testing turn positive. We will contact patient regarding the positive testing. We will treat with doxycycline twice daily for 10 days. Notify patient that testing as by state law will be forwarded to [facility]. [Electronically Signed on: 08/21/2021 10:46 EST] Joel Olivares MD [Verified on: 08/21/2021 10:46 EST] Joel Olivares [facility] Urineon 08-19-2021 UrineUrine Culture ordered as a result of parameters set on specific urine dip and urine microsopic results. No growth at 2 days.TriHealthComment on above:Performed By: #### [id number], [id number], [id number], [id number] ####[facility] (DEFAULT)[address] [place] [address] Genitalon 08-18-2021 GenitalNormal vaginal migue isolated No growth of GC at 3 days. Corrected Results Below Gram Negative Diplococci not seen. 3+ Gram Positive Rods 1+ Gram Positive Cocci Rare Gram Negative RodsTriHealthComment on above:Performed By: #### [id number] ####[facility] (DEFAULT)[address] [place] [address] Clinical Summaryon [id number] [facility] [address] [place] [address] ED Clinical Summary PERSON INFORMATION Name: BEATRIS MACK Age: 21 Years Sex: FEMALE : 2000 MRN: Acct#: Visit Reason: Vaginal discharge; VAGINAL DISCHARGE/ITCHING Arrival: 08/17/2021 13:36:40 Discharge: 08/17/2021 16:11:00 LOS: 000 02:35 Check In: 08/17/2021 13:36:40 Checkout:08/17/2021 16:11:00 Address: [facility] [address] PCP: Provider, None PROVIDER INFORMATION Provider Role [...] chills. No recent sick contacts or travel. LACQUERER is Dr. Saab. No known medication allergies. [...] genitalia, no lesions, Normal (more content not included)...[facility] Note - Physicianon 26-25-8092MF Note - PhysicianPatient: BEATRIS MACK Age: 21 years Sex: FEMALE : 2000 Associated Diagnoses: Trichomonas vaginalis (TV) infection Author: Hosea LOVELeonidas Basic Information Time seen: Date & time [...] chills. No recent sick contacts or travel. LACQUERER is Dr. Saab. No known medication allergies. [...] Vagina, 08/17/2021 14:24 EST, Stat collect, Nurse kumar (more content not included)...[facility] Note-Nursing on 98-15-1084PQ Note-NursingPatient arrives to ED room 4 via ambulation, gait is steady. Pt c/o vaginal itching and discharge, states it is yellowish and foul- smelling. She states it started a few days ago, just after her last menstrual period ended. She reports that she has been having unprotected sex with her current partner, states that she does not live with him, so she states that she cannot speak to what he may or maynot be doing when she is not with him. Pt states that she has been having burning with urination for the past few days as well. Pt denies any other issues.[facility] Patient Summaryon [id number] Patient SummaryWilson [facility] - Emergency Department [address] [place] [address] PATIENT DISCHARGE INSTRUCTIONS Patient Information Name: BEATRIS MACK Age: 21 Years Date of : 2000 Reason For Visit: Vaginal discharge; VAGINAL DISCHARGE/ITCHING Arrival Time: 08/17/2021 13:36:40 Primary Care Physician: Provider, None Attending Physician: Silver Levi MD Comment: Visit Diagnosis: Diagnoses This Visit Trichomonas vaginalis (TV) infection (A59.01) Vaginal discharge ([id number]) Prescription Information: If you have been given a prescription for narcotics, seek immediate medical attention if you have any difficulty breathing or any sudden status changes such as confusion andsleepiness. If you or anyone you know is experiencing suicidal thoughts, mental health, alcohol and/or drug addiction problems; contact the [facility] 13/04 Crisis Hotline -Text 4HOPE to 527161. If you received any narcotics, sedation, or [...] 5 days Comments: Please follow-up with your LACQUERER in 3 to 5 days. Contact their office on Thursday morning to schedule a follow-up appointment let them know that you were seen and evaluated in the emergency departmentin regards to vaginal disc charge and discomfort. [...] and treatment you received today in the [facility] Emergency Department were for an urgent problem and are not intended as complete care. It is important for you to follow up with a doctor, nurse practitioner, or physician?s seismic survey assistant for ongoing care. If your symptoms become worse or you donot improve as expected and you are unable [...] of medications post discharge. Please inform your director of claims/provider of your visit and for further instruction on these medications. Any specific questions regarding your chronic medications and dosages should be discussed with your primary care physician(s) and/or pharmacist. New Medications [facility], [address] [place] [id number], [phone] metroNIDAZOLE (Flagyl 500 mg oral tablet) 1 [...] reproductive organs can also be involved (more contentnot included)... NormalWilson Street HospitalPregnancy Test Urine 1on 08-17-2021U PregNegativeNormal [address] HospitalComment on above:Performed By: #### [id number], [id number], [id number], [id number] ####[facility] (DEFAULT)[address] [place] [address] Preg Internal ControlPassNoRegional Medical CenterComment on above:Performed By: #### [id number], [id number], [id number], [id number] ####[facility] (DEFAULT)[address] [place] [address]JJ Jplza4lf 08-17-2021 UA BacteriaTraceTriHealthComment on above:Order Comment: Urinalysis Microscopic order added on by [employer] Expert Rules system.Performed By: #### [id number], [id number], [id number], [id number] ####[facility] (DEFAULT)[address] [place], [place] [address]UA Mucous2+NormalMercy Health St. Anne Hospital HospitalComment on above:Order Comment: Urinalysis Microscopic order added on by [employer] Expert Rules system.Performed By: #### [id number], [id number], [id number], [id number] ####[facility] (DEFAULT)[address] [place] [address] RBC3-5NoOhioHealth Mansfield Hospital HospitalComment on above:Order Comment: Urinalysis Microscopic order added on by [employer] Expert Rules system.Performed By: #### [id number], [id number], [id number], [id number] ####[facility] (DEFAULT)[address] [place] [address] Squam EpiFewFulton County Health Center HospitalComment on above:Order Comment: Urinalysis Microscopic order added on by [employer] Expert Rules system.Performed By: #### [id number], [id number], [id number], [id number] ####[facility] (DEFAULT)[address] [place] [address] TrichomonasFewTriHealthComment on above:Order Comment: Urinalysis Microscopic order added on by [employer] Expert Rules system.Performed By: #### [id number], [id number], [id number], [id number] ####[facility] (DEFAULT)[address] [place] [address] MOQ20-09RclnnsUowyzukl HospitalComment on above:Order Comment: Urinalysis Microscopic order added on by [employer] Expert Rules system.Performed By: #### [id number], [id number], [id number], [id number] ####[facility] (DEFAULT)[address] [place] [address] w Culture if Ind Standardon 50-59-2848Okoduhvrdb UATriHealth Comment on above:Performed By: #### [id number], [id number], [id number], [id number] ####[facility] (DEFAULT)[address] [place] [address]Xyzpn (U) YellowNormalMagrkettering health troy HospitalComment on above:Performed By: #### [id number], [id number], [id number], [id number] ####[facility] (DEFAULT)[address] [place] [address]Rrlqpna?IndicatedInvalid Interpretation CodeMercy Health St. Anne Hospital HospitalComment on above:Result Comment: Result created by rule GL_MAGR_ADD_UA_CULT Result created by rule GL_MAGR_ADD_UA_CULT Result created by rule GL_MAGR_ADD_UA_CULT1Performed By: #### [id number], [id number], [id number], [id number] ####[facility] (DEFAULT)[address] [place] [address] Glucose (U) [Mass/Vol]NegativeNormalMaselect medical [facility] HospitalComment on above:Performed By: #### [id number], [id number], [id number], [id number] ####[facility] (DEFAULT)[address] [place] [address]Aojauko Ql (U)NegativeNormal [facility] HospitalComment on above:Performed By: #### [id number], [id number], [id number], [id number] ####[facility] (DEFAULT)[address] [place] [address]Hoirn?IndicatedInvalid Interpretation CodeMercy Health St. Anne Hospital Hospital Comment on above:Result Comment: Result created by rule GL_MAGR_ADD_UA_MICRO Performed By: #### [id number], [id number], [id number], [id number] ####[facility] (DEFAULT)[address] [place] [address]AN BilirubinNegative NormalMagrkettering health troy HospitalComment on above:Performed By: #### [id number], [id number], [id number], [id number] ####[facility] (DEFAULT)[address] [place] [address] 15033TL BloodNegativeNormalNEGATIVEMagrkettering health troy HospitalComment on above:Performed By: #### [id number], [id number], [id number], [id number] ####[facility] (DEFAULT)[address] [place] [address]JY ClarityCLEARNormal CLEARMercy Health St. Anne Hospital HospitalComment on above:Performed By: #### [id number], [id number], [id number], [id number] ####[facility] (DEFAULT)[address] [place] [address] 75703BS Leuk EstTRACEAbnormalNEGATIVEMercy Health St. Anne Hospital HospitalComment on above:Performed By: #### [id number], [id number], [id number], [id number] ####[facility] (DEFAULT)[address] [place] [address] [id number] NitriteNegative NormalNEGATIVEMercy Health St. Anne Hospital HospitalComment on above:Performed By: #### [id number], [id number], [id number], [id number] ####[facility] (DEFAULT)[address] [place] [address] 77596RC pH6.1Dhhlgy7-4Njgleyvo HospitalComment on above: Performed By: #### [id number], [id number], [id number], [id number] ####[facility] (DEFAULT)[address] [place] [address] 85418OH ProteinNegative NormalNEGUC Medical Center HospitalComment on above:Performed By: #### [id number], [id number], [id number], [id number] ####[facility] (DEFAULT)[address] [place] [address] 44485FX Spec Grav>=1.729Yoreek6.001-1.035[facility] HospitalComment on above:Performed By: #### [id number], [id number], [id number], [id number] ####[facility] (DEFAULT)[address] [place] [address] 35651GJ Urobilinogen0.2 mg/dLNormal0.2-1.0[facility] HospitalComment on above:Performed By: #### [id number], [id number], [id number], [id number] ####[facility] (DEFAULT)[address] [place] [address] [address] SourceClean C[address] HospitalComment on above:Performed By: #### [id number], [id number], [id number], [id number] ####[facility] (DEFAULT)[address] [place] [address] 30817Eyn [place] 87-08-1465Tkd [facility].NegativeNormalMercy Health St. [facility] Hospital HospitalComment on above:Performed By: #### [id number] #### [facility] (DEFAULT) [address] [place] [address] 08419QZV - MISCon 63-80-0044AYQ - MISC [id number]#1.00CD:[address] [place], [place] [address]Insurance Correspondence Officeon 72-53-3127Nkbacteod Correspondence [id number]#1.00CD:[address] [place], [place] [address]Consent for Treatmenton 19-22-9840Jfvvyrf for Treatment [id number]#1.00CD:[address] [place], [place] [address]Consultation Noteon 22-59-4645Cytmhgjrursi Note [id number]#1.00CD:[address] [place], [place] [address]Operative Reporton 98-53-7848Tgshdrsbs Report [id number]#1.00CD:[address] [place], [place] [address]Ambulatory Clinical Summaryon 71-17-1069Nmjmcswtxg Clinical Summary {5v-59-8k-1s-6a-k0-9d-09-[id number]-n3-79-g0-4c-14-42-c8}CD:[id number] Health West HospitalCoding Summary.on 21-28-0617Pmxvcw Summary.CODING DATE: 11/14/2019 [facility] STATUS: Left Against Medical Advice PAYOR: Teofilo [...] By: Belinda Person Date Saved: 11/14/2019 08:46 [facility] CenterC[facility] Summary. CODING DATE: 11/14/2019 FINAL [facility] STATUS: Left Without Being Seen PAYOR: Teofilo [...] By: Belinda Person Date Saved: 11/14/2019 08:46 [facility] Clinical Summaryon [id number] Clinical Summary [place] [id number] ED Clinical Summary Person Information Name: BEATRIS MACK [place] Age: 19 Years : 2000 Sex: Female Language: Chadian PCP: Jeanine Gimenez DO Marital Status: Single Phone: [phone] Visit Id: Visit Reason: Abdominal pain - [...] 11/12/2019 21:18:58 11/12/2019 21:18:58 11/12/2019 21:18:58 ADDRESS: [address] [place] [address] [id number] PHYS DOC NOTES: MEDICAL INFORMATION: Prescriptions Given: PATIENT EDUCATION INFORMATION: Instructions: Follow up: DIAGNOSIS:[facility] CenterED Patient Education Noteon 40-43-6387FI Patient Education NoteNormalLewis Pittman Medical CenterED Patient Summaryon 39-29-3057DX Patient Summary [place] [id number] Patient Discharge Instructions Person Information Name: BEATRIS MACK Age: 19 Years Arrival Date: 11/12/2019 19:17:38 Discharge Diagnosis: Primary Care Physician: Jeanine Gimenez DO Provider Information Primary Provider: Christian Vee MD Advanced Lace Cutter:None The exam and treatment you received in the Emergency Department were for an urgent problem and are not intended as complete care. It is important that you follow up with a doctor, nurse practitioner,or physician?s seismic survey assistant for ongoing care. If your symptoms [...] opioids can be used to help relieve aelmfzuu-vp-fcwnua pain and are often prescribed following a [...] and have fewer risks and side effects. Optionsmay include: ? Pain relievers such as acetaminophen, [...] unused prescription opioids: Find your community drug take- back program or yourpharmacy mail-back program, or flush them down the toilet, following guidance from the Food and Drug Administration (www.fda.gov/Drugs/ResourcesForYou). ? Visit www.cdc.gov/drugoverdose to learn about the risks of opioids abuse and overdose. ? If you believe you may be struggling with addiction, tell your health wound care coordinator and ask for guidance or call SAMHSA?S National Helpline at 4-317-216-ZVUZ. v Source: US Department of Health and Human Services/Center for Disease Control & Prevention Citizen Of [facility] Medications Given: Medication Dose Route No medications found. Medication Information: Comment: Pharmacy Information: Thank you for choosing [facility] Patient Education Materials: FREDERICK Stein HAYLEE T , have received the following patient education materials/instructions and haveverbalized understanding: Patient Education Materials: Follow-up Instructions: Patient Signature Date Clinician/Nurse Signature Date 11/12/2019 21:18:59NormalDetwiler Memorial HospitalProgress Note-Nurseon 41-61-9744Gclmpmth Note-Nursept left before dr. vee was in for examNormal [facility] HospitalUA With Cult Reflexon 43-12-7479Tgpzlata LM Ql (Urine sed)1+ /HPFAbnormalTraceDetwiler Memorial HospitalComment on above:Performed By: #### [id number] ####[facility] Eclxulqbex[address]NS[place], [place] [address]Gzhfdupob Ql (U)NegativeNormalNegativeDetwiler Memorial HospitalComment on above:Performed By: #### [id number] ####[facility] [address] [place], [place] [address]Wdvvfxk (U)CLEARNormalClear [facility] HospitalComment on above:Performed By: #### [id number] ####[facility] Q[address] [place] [address]Ogenz (U)YELLOWNormalYellowDetwiler Memorial HospitalComment on above:Performed By: #### [id number] ####[facility] [address] [place], [place] [address]Usskunbq LM Ql (Urine sed)PresentNoSt. Rita's Hospital Comment on above:Performed By: #### [id number] ####[address] [address]Yjkgroubob cells.squamous LM.HPF (Urine sed) [#/Area]4-9Xfjdqb5-5Jtgunr [facility] Orthopaedic InstituteComment on above: Performed By: #### [id number] ####[address] [address]Idteyog Test strip (U) [Mass/Vol]NegativeNormal NegativeDetwiler Memorial HospitalComment on above:Performed By: #### [id number] ####[address] [address] Hemoglobin Ql (U)NegativePike County Memorial HospitalalNegMercy Health Willard HospitalComment on above:Performed By: #### [id number] ####[address] [address]Horazrt (U) [Mass/Vol]NegativeNormalNegativeDetwiler Memorial HospitalComment on above:Performed By: #### [id number] ####[address] [address] [place].plasma/[place].RBC (Bld) [Mass ratio]3-7Fhehuw7-9Bxhoor [facility] Orthopaedic InstituteComment on above:Performed By: #### [id number] ####[facility] Wow[address] [place] [address]Nghbd Ql (Urine sed)TRACE NormalDetwiler Memorial HospitalComment on above:Performed By: #### [id number] ####[facility] [address] [address] Nitrite Ql (U)NegativeNormalNegativeDetwiler Memorial HospitalComment on above: Performed By: #### [id number] ####[facility] [address] [address]uX (U)6.0 [pH]5.0-9.0[facility] Comment on above:Performed By: #### [id number] ####[facility] [address] [address]Iwjerfa (U) [Mass/Vol]NegativeNormal NegativeDetwiler Memorial HospitalComment on above:Performed By: #### [id number] ####[address] [address] Specific gravity (U) [Rel density]1.0251.005-1.030[facility] Comment on above:Performed By: #### [id number] ####[facility] [address] [address]JK Spec DescClean CatchNormalDetwiler Memorial HospitalComment on above:Performed By: #### [id number] ####[address] [address]Fotrxgpopzhp Qn (U)0.2 {Joy'U}/dLNormal0.0-1.0[facility] Memorial HospitalComment on above: Performed By: #### [id number] ####[facility] [address] [address]TZL Auto Ql (U)NegativeNormalNegativeDetwiler Memorial HospitalComment on above:Performed By: #### [id number] ####[address] [address]BRW LM.HPF (Urine sed) [#/Area]8-8Craoaa6-8Xbsmhq [facility] Orthopaedic InstituteComment on above:Performed By: #### [id number] ####[place] [address] [place], [place] [address]Ueszxdqpo erythrocytes count in urine sediment (number/area)on 66-07-2157JAJ Auto (Urine sed) [#/Area]3-4 [HPF][facility] Automated leukocytes count in urine sediment (number/area)on 31-81-5480KWM Auto (Urine sed) [#/Area]20-49 [HPF][facility] HospitalAutomated urine color determinationon 79-95-5660Zgxwz (U)YellowYellowTwin City HospitalAutomated urine hyaline casts count (number/volume)on 18-86-4230Srvzlhz casts Auto (U) [#/Vol]Rare [LPF][facility] CtrCasts typing in urine sediment by light microscopyon 55-16-9401Zswbe LM Nom (Urine sed)None seen [LPF] None SeenTwin City HospitalSpecific gravity of Urine by Automated test stripon 05-67-6537Xojzrjgf gravity (U) [Rel density]1.0171.001-1.030 [facility] HospitalSquamous epithelial cells detection in urine sediment by light microscopyon 79-30-5114Efywzpvivw cells.squamous LM Ql (Urine sed)5-9 [HPF][facility] HospitalUrine bacteria detection by automated methodon 39-06-5294Znpmlcif Auto Ql (U)2+None [facility] HospitalUrine clarity by refractometry automatedon 65-75-3304Ccttyiq Refractometry automated (U)TurbidClearFCommunity Regional Medical CenterUrine culture routineon 14-43-6589Kobaczmd identified Cx Nom (U)2 DaysTwin City Hospital Urine glucose measurement by automated test strip (mass/volume)on 11-10-2019 Glucose Auto test strip (U) [Mass/Vol]Normal mg/dLNormalTwin City HospitalUrine hemoglobin detection by automated test stripon 11-10-2019 Hemoglobin Auto test strip Ql (U)NegativeNegativeTwin City Hospital Urine ketones measurement by automated test strip (mass/volume)on 11-10-2019 Ketones (U) [Mass/Vol]NegativeNegativeTwin City HospitalUrine leukocyte esterase detection by automated test stripon 01-72-1260Iatlignur esterase Auto test strip Ql (U)3+NegativeBarnesville Hospital CtrUrine nitrite detection by test stripon 40-04-8801Bjepbdu Ql (U)NegativeNegative [facility] HospitalUrine pH measurement by automated test stripon 54-35-9504oI (U)6.5 [pH]5.0-9.0[facility] CtrUrine protein measurement by automated test strip (mass/volume)on 43-01-9452Xccadot (U) [Mass/Vol]NegativeNegativeBarnesville Hospital CtrUrine total bilirubin detection by test stripon 06-43-2856Gforynszy Ql (U)NegativeNegativeTwin City HospitalUrine urobilinogen measurement by automated test strip (mass/volume)on 56-50-2445Lrfeqvhgfzoj (U) [Mass/Vol]Normal mg/dLNormalBarnesville Hospital CtrAutomated erythrocytes count in urine sediment (number/area)on 07-38-1703BNW Auto (Urine sed) [#/Area]1-2 [HPF][facility] CtrAutomated leukocytes count in urine sediment (number/area)on 09-85-3799FCM Auto (Urine sed) [#/Area]10-19 [HPF][facility] CtrAutomated urine color determinationon 28-39-0735Rnsbd (U)YellowYellow [facility] CtrChlamydia trachomatis rRNA detection by probe and target amplification methodon 10-19-2019C. trachomatis rRNA LEV+probe Ql (Unsp spec)NegativeNegKettering Health – Soin Medical Center CtrComment on above:Performed at: =[address] [id number] Director: Mavis Sow MD, Phone: [phone] or plasma beta choriogonadotropin measurement (units/volume)on 53-10-4941IHU.beta subunit Qn 893963.00 m[IU]/mLBarnesville Hospital CtrComment on above:Approximate Approximate hCG Gestational Age Range (mIU/ml) (weeks)0.2-1 5-50 1-2 50-500 2-3 100-5,000 3-4 500-10,000 4-5 1,000-50,000 5-6 10,000-100,000 6-8 15,000-200,000 8-12 10,000-100,000Specific gravity of Urine by Automated test stripon 35-53-0176Isxpbolw gravity (U) [Rel density]1.0211.001-1.030[facility] CtrSquamous epithelial cells detection in urine sediment by light microscopyon 16-32-0742Kvnstrdxxz cells.squamous LM Ql (Urine sed)10-19 [HPF] [facility] CtrUrinalysison 94-48-4833Kwxrkfk casts LM Ql (Urine sed)0-8 [LPF][facility] CtrUrine bacteria detection by automated methodon 58-28-5727Uriiohod Auto Ql (U)1+None SeenBarnesville Hospital CtrUrine clarity by refractometry automatedon 20-14-7536Souorkh Refractometry automated (U)CloudyClearFPomerene Hospital CtrUrine culture routineon 54-01-2291Cijrshsn identified Cx Nom (U)2 DaysBarnesville Hospital Ctr Urine glucose measurement by automated test strip (mass/volume)on 10-19-2019 Glucose Auto test strip (U) [Mass/Vol]Normal mg/dLNormalBarnesville Hospital CtrUrine hemoglobin detection by automated test stripon 10-19-2019 Hemoglobin Auto test strip Ql (U)TraceNegativeBarnesville Hospital Ctr Urine ketones measurement by automated test strip (mass/volume)on 10-19-2019 Ketones (U) [Mass/Vol]NegativeNegMcKitrick HospitalUrine leukocyte esterase detection by automated test stripon 35-54-1675Caiwfhssx esterase Auto test strip Ql (U)1+NegativeBarnesville Hospital CtrUrine nitrite detection by test stripon 47-14-3997Qdzpfof Ql (U)NegativeNegative [facility] CtrUrine pH measurement by automated test stripon 21-34-9140iD (U)5.5 [pH]5.0-9.0[facility] CtrUrine protein measurement by automated test strip (mass/volume)on 83-37-9938Mukqxlt (U) [Mass/Vol]NegativeNegKettering Health – Soin Medical Center CtrUrine total bilirubin detection by test stripon 24-99-9265Gkmaoxqbc Ql (U)NegativeNegKettering Health – Soin Medical Center CtrUrine urobilinogen measurement by automated test strip (mass/volume)on 86-10-9359Yoobtmorovmm (U) [Mass/Vol]Normal mg/dLNormOhioHealth Doctors Hospital CtrAutomated erythrocytes count in urine sediment (number/area)on 58-77-5819JRY Auto (Urine sed) [#/Area]0-1 [HPF][facility] CtrAutomated leukocytes count in urine sediment (number/area)on 82-72-8169PDD Auto (Urine sed) [#/Area]20-49 [HPF][facility] CtrAutomated urine color determinationon 02-44-8024Caesq (U)YellowYellow [facility] CtrAutomated urine hyaline casts count (number/volume)on 58-82-3313Dxveyhz casts Auto (U) [#/Vol]0-1 [LPF][facility] CtrCasts typing in urine sediment by light microscopyon 85-92-0665Idrqu LM Nom (Urine sed)None seen [LPF]None SeenBarnesville Hospital CtrChlamydia trachomatis rRNA detection by probe and target amplification methodon 10-02-2019C. trachomatis rRNA LEV+probe Ql (Unsp spec) NegativeNegativeBarnesville Hospital CtrComment on above:Performed at: =[facility] [id number] Director: Mavis Sow MD, Phone: [phone] gravity of Urine by Automated test stripon 97-72-9145Xkkmjzqt gravity (U) [Rel density]1.0201.001-1.030[facility] CtrSquamous epithelial cells detection in urine sediment by light microscopyon 37-25-3517Aerzzztybi cells.squamous LM Ql (Urine sed)10-19 [HPF][facility] CtrUrine bacteria detection by automated method on 04-61-9589Fzpaonbt Auto Ql (U)2+None SeenBarnesville Hospital CtrUrine clarity by refractometry automatedon 50-89-9380Mqipyga Refractometry automated (U)CloudyClearFPomerene Hospital CtrUrine culture routineon 10-02-2019 Bacteria identified Cx Nom (U)2 DaysTwin City HospitalUrine glucose measurement by automated test strip (mass/volume)on 94-78-6807Obsupih Auto test strip (U) [Mass/Vol]Normal mg/dLNormOhioHealth Doctors Hospital CtrUrine hemoglobin detection by automated test stripon 65-55-5542Jtwluapmfv Auto test strip Ql (U)NegativeNegKettering Health – Soin Medical Center CtrUrine ketones measurement by automated test strip (mass/volume)on 97-79-6166Orvsxmk (U) [Mass/Vol]NegativeNegativeBarnesville Hospital CtrUrine leukocyte esterase detection by automated test stripon 30-42-1113Inuizpthc esterase Auto test strip Ql (U)2+NegativeBarnesville Hospital CtrUrine nitrite detection by test stripon 84-21-0488Civybyh Ql (U)NegativeNegativeBarnesville Hospital CtrUrine pH measurement by automated test stripon 99-86-5239dX (U)7.0 [pH] 5.0-9.0[facility] CtrUrine protein measurement by automated test strip (mass/volume)on 79-40-6882Vaarezd (U) [Mass/Vol]NegativeNegativeBarnesville Hospital CtrUrine sediment renal epithelial cell count by microscopy (number/high power field)on 56-36-5967Lizoklrmqd cells.renal LM.HPF (Urine sed) [#/Area]1-2 [HPF][facility] CtrUrine total bilirubin detection by test stripon 70-86-9147Ifisyqdhr Ql (U)NegativeNegMcKitrick HospitalUrine urobilinogen measurement by automated test strip (mass/volume) on 50-22-9439Xgauizklhimm (U) [Mass/Vol]Normal mg/dLNormOhioHealth Doctors Hospital CtrAutomated basophil %on 47-51-7515Klmgbzjiz/100 WBC (Bld)0.1 % [facility] CtrAutomated basophil counton 09-58-0211Jtahpqauf (Bld) [#/Vol]0.0 10*3/uL0.0-0.2FPomerene Hospital CtrAutomated blood lymphocyte count (number/volume)on 60-04-3070Gcpcbxosqbs (Bld) [#/Vol]0.4 10*3/uL1.00-4.8T[facility] City HospitalAutomated blood lymphocyte count as percentage of total leukocyteson 63-84-0701Exzmjhpyudn/100 WBC (Bld)5.3 % [facility] CtrAutomated blood monocyte counton 09-06-2019 Monocytes (Bld) [#/Vol]1.2 10*3/uL0.0-0.8[facility] CtrAutomated blood platelet count (count/volume)on 42-22-5665Naohngusb (Bld) [#/Vol]284 10*3/zG560-882IipykqcrbBarnesville Hospital CtrAutomated blood platelet mean volume measurementon 44-91-9875Nhpwqvgj mean volume (Bld) [Entitic vol]8.4 fL6.3-10.7 [facility] CtrAutomated eosinophil %on 89-01-1029Wldecmrqsge/100 WBC (Bld)0.3 %[facility] CtrAutomated eosinophil counton 39-26-5167Xvgjrppskrb (Bld) [#/Vol]0.0 10*3/uL0.0-0.45[facility] CtrAutomated erythrocyte distribution width ratioon 28-60-5179Rhkavplgxny distribution width (RBC) [Ratio]16.9 %11.9-15.3FPomerene Hospital Ctr Automated erythrocyte mean corpuscular hemoglobin (mass per erythrocyte)on 42-70-0469AIB (RBC) [Entitic mass]29.9 pg24.7-34.3FPomerene Hospital Ctr Automated erythrocyte mean corpuscular hemoglobin concentration measurement (mass/volon 82-25-3499AEIK (RBC) [Mass/Vol]33.4 g/dL32.0-35.0[facility] CtrAutomated erythrocyte mean corpuscular volumeon 81-98-0289COQ (RBC) [Entitic vol]89.6 tB11-967FutrysddgBarnesville Hospital CtrAutomated erythrocytes count in urine sediment (number/area)on 90-18-5463UVT Auto (Urine sed) [#/Area] 10-19 [HPF][facility] CtrAutomated leukocytes count in urine sediment (number/area)on 66-01-1370ZRZ Auto (Urine sed) [#/Area]5-9 [HPF] [facility] CtrAutomated monocyte %on 71-81-0613Qyxlfurku/100 WBC (Bld)15.4 %[facility] CtrAutomated neutrophil %on 09-06-2019 Neutrophils/100 WBC (Bld)78.9 %[facility] CtrAutomated urine color determinationon 51-18-2137Fcron (U)YellowYellowBarnesville Hospital CtrBlood erythrocytes automated count (number/volume)on 06-39-6298OUM (Bld) [#/Vol]4.36 10*6/uL3.60-5.00[facility] CtrBlood hemoglobin measurement (mass/volume)on 86-06-1496Thdcorugfh (Bld) [Mass/Vol]13.0 g/dL 11.8-15.4FPomerene Hospital CtrBlood leukocytes automated count (number/volume)on 01-09-3338AFY (Bld) [#/Vol]8.0 10*3/uL3.8-11.6FCommunity Regional Medical CenterBlood neutrophil count by automated method (number/volume)on 18-64-5337Xjsbikcqxtw (Bld) [#/Vol]6.3 10*3/uL1.8-7.7FPomerene Hospital CtrHematocrit [Volume Fraction] of Blood by Automated counton 09-06-2019 Hematocrit (Bld) [Volume fraction]39.1 %34.0-46.4FPomerene Hospital Ctr Otheron 18-49-7077Sutndelll RBC/100 WBC (Bld) [Ratio]0.0 %0-0.5FPomerene Hospital CtrSerum or plasma beta choriogonadotropin measurement (units/volume)on 97-58-9573VMN.beta subunit Rk6339.00 m[IU]/mLBarnesville Hospital CtrComment on above:Approximate Approximate hCG Gestational Age Range (mIU/ml) (weeks)0.2-1 5-50 1-2 50-500 2-3 100-5,000 3-4 500-10,000 4-5 1,000- 50,000 5-6 10,000-100,000 6-8 15,000-200,000 8-12 10,000-100,000Specific gravity of Urine by Automated test stripon 39-00-0842Binnfysg gravity (U) [Rel density] 1.0151.001-1.030[facility] CtrSquamous epithelial cells detection in urine sediment by light microscopyon 92-33-7510Mfewlwfarz cells.squamous LM Ql (Urine sed)07-09 [HPF][facility] Urinalysison 69-14-7700Lwmnprh casts LM Ql (Urine sed)0-8 [LPF][facility] CtrUrine bacteria detection by automated methodon 09-06-2019 Bacteria Auto Ql (U)1+None SeenBarnesville Hospital CtrUrine clarity by refractometry automatedon 11-32-6928Jhrdgmo Refractometry automated (U)Clear ClearBarnesville Hospital CtrUrine culture routineon 41-61-8814Ysqjqzds identified Cx Nom (U)Strep. agalactiae Grp BFCommunity Regional Medical CenterUrine glucose measurement by automated test strip (mass/volume)on 57-57-2697Hghbamr Auto test strip (U) [Mass/Vol]Normal mg/dLNormSelect Medical Specialty [facility] Urine hemoglobin detection by automated test stripon 65-39-3546Lnsovycskj Auto test strip Ql (U)NegativeNegMcKitrick HospitalUrine human chorionic gonadotropin (hCG) detection by immunoassayon 08-96-2341DOU ( test) Ql (U)PositiveTwin City HospitalUrine ketones measurement by automated test strip (mass/volume)on 90-33-5707Linitpq (U) [Mass/Vol]1+Negative [facility] HospitalUrine leukocyte esterase detection by automated test stripon 91-36-3458Ocsxjbvkf esterase Auto test strip Ql (U)1+Negative [facility] HospitalUrine nitrite detection by test stripon 09-06-2019 Nitrite Ql (U)NegativeNegMcKitrick HospitalUrine pH measurement by automated test stripon 24-62-2088tM (U)7.0 [pH]5.0-9.0T[facility] City HospitalUrine protein measurement by automated test strip (mass/volume)on 83-27-0169Wvobxsj (U) [Mass/Vol]NegativeNegMcKitrick Hospital Urine total bilirubin detection by test stripon 65-49-9732Ldijmaibn Ql (U) NegativeNegMcKitrick HospitalUrine urobilinogen measurement by automated test strip (mass/volume)on 51-83-3614Aqsmfmyvgmaw (U) [Mass/Vol]Normal mg/dLNormOhioHealth Doctors Hospital CtrC Cervicalon 61-53-2265Gtsmcobx CultureMicrobiology PROCEDURE: Cervical Culture [R1] SOURCE: Cerv BODY [...] or tested, I=Intermediate, ESBL=Extended spectrum beta-lactamase, R=Resistant, TFG=Thymidine-dependent strain, BRITTNEY=Beta-lactamase positive, JOSE=mcg/m;(mg/L), S*=Predicted susceptible interp, [...] Locations R1: This test was performed at: [facility], [address] [place] [address], [address] [phone] [facility] HospitalComment on above:Performed By: #### [id number] ####[facility] [address] [place] [address] Coding Summary.on 87-46-5114Bstiaj Summary.CODING DATE: 08/03/2019 FINAL [facility] STATUS: Home (Routine DC) PAYOR: Teofilo ADMIT [...] By: Belinda Person Date Saved: 08/03/2019 05:45 amNDunlap Memorial HospitalCoding Summary. on 38-74-3663Nkrtvb Summary.CODING DATE: 08/02/2019 FINAL [facility] STATUS: Home (Routine DC) PAYOR: Teofilo ADMIT [...] By: Belinda Person Date Saved: 08/02/2019 08:55 [facility] Clinical Summaryon 55-93-0425UR Clinical Summary [place] [id number] ED Clinical Summary Person Information Name: BEATRIS MACK/[place] Age: 19 Years : 2000 12:00 AM Sex: Female Language: Chadian PCP: Jeanine Gimenez DO Marital Status: Single Phone: [phone] Visit Id: Visit Reason: STD exposure; VAGINAL [...] 08/02/2019 2:51 PM 08/02/2019 2:51 PM ADDRESS: [address] [place] [id number] PHYS DOC NOTES: MEDICAL INFORMATION: Prescriptions Given: PATIENT EDUCATION INFORMATION: Instructions: Sexually Transmitted Disease Follow up: With: Address: When: Jeanine Gimenez [address], Ezekiel C, [facility] [address] [phone] Business (1) In 3 days 08/05/2019 DIAGNOSIS: STD exposureNormalFisher [facility]idan Medical CenterED Note-Physicianon [id number] Note-PhysicianBasic Information Time Seen: Agusto Oshea PA-C 08/02/2019 [...] nausea, vomiting. No abdominal pains. Denies concerns ofpregnancy reporting or control. Review of Systems A [...] utility in repeating her testing today, as itwould not change treatment. Her cervical cultures are still pending. Her wet prep did return with clue cells and Diflucan, and she is already on a 7-day course of Flagyl and was prescribed Diflucan. She does have appointment next week with LACQUERER for follow-up, and is educated that she [...] Gimenez In 3 days 08/05/2019 EST [address], Ezekiel C, [place] [address] [place] [address]- Business (1) Additional Instructions: Patient Education Sexually Transmitted Disease Attestation Patient seen and evaluated by the physician seismic survey assistant. Attending physician was present in the emergency department and supervised care. This report was transcribed using voice recognition software. Every effort was made to ensure accuracy, however, inadvertently computerized hydroelectric mechanic mistakes may be present. Problem List/Past Medical [...] data available. Diagnostic Results No qualifying data available.[facility] HospitalComment on above: Result Comment: Electronically Signed By: Agusto Oshea PA-C\.br\Date and Time Signed: 08/02/1914:41 EST\.br\Electronically Co-Signed By: Bartolo Randolph DO\.br\Date and Time Co-Signed: 08/02/19 14:43 NIYAH Patient Education Noteon [id number] Patient Education NoteFamily Medicine Sexually Transmitted Disease A sexually transmitted [...] evaluation. They should not have sex until theirhealth care providers say it is okay. HOW [...] to prevent HIV infection. This is called pre- exposure prophylaxis (PrEP). You are considered at risk [...] HIV. You should then be tested every 3months for as long as you are taking [...] Document Reviewed: 03/28/2014 ExitCare? Patient Information ?2014 [employer]. This information is not intended to replace advice given to you by your health care provider. Make sure you discuss any questions you have with yourhealth care provider.[facility] Patient Summaryon [id number] Patient Summary [address] [address] Patient Discharge Instructions Person Information Name: BEATRIS MACK Age: 19 Years Arrival Date: 08/02/2019 1:44 PM Discharge Diagnosis: STD exposure Primary Care Physician: Jeanine Gimenez DO Provider Information Primary Provider: Bartolo Randolph DO Advanced Lace Cutter:Agusto Oshea PA-C The exam and treatment you received in the Emergency Department were for an urgent problem and are not intended as complete care. It is important that you follow up with a doctor, nurse practitioner,or physician?s seismic survey assistant for ongoing care. If your symptoms [...] Follow-up Instructions: With: Address: When: Jeanine Gimenez [address] [place] [address] [address] C, [facility] [address] [phone] [facility] (1) In 3 days 08/05/2019 In the event that this physician does not participate in your insurance network, please consult with your insurance company to find a nearby participating provider. Patient Education Materials: Sexually Transmitted Disease A MESSAGE TO ALL PATIENTS REGARDING OPIOIDS PRESCRIPTION OPIOIDS: WHAT YOU NEED TO KNOW Prescription opioids can be used to help relieve ldvvztmz-na-bxoect pain and are often prescribed following a [...] and have fewer risks and side effects. Optionsmay include: ? Pain relievers such as acetaminophen, [...] unused prescription opioids: Find your community drug take- back program or yourpharmacy mail-back program, or flush them down the toilet, following guidance from the Food and Drug Administration (www.fda.gov/Drugs/ResourcesForYou). ? Visit www.cdc.gov/drugoverdose to learn about the risks of opioids abuse and overdose. ? If you believe you may be struggling with addiction, tell your health wound care coordinator and ask for guidance or call [facility]?S [employer] Helpline at 5-023-489-XKXR. i Source: US Department of Health and Human Services/Center for Disease Control & Prevention [facility] Medications Given: Medication Dose Route No medications found. Medication Information: Medications to Continue with No Changes Other Medications metronidazole (Flagyl 500 mg Tab) 1 Tabs By Mouth every 12 hours for 7 Days. Refills: 0. Comment: Pharmacy Information: Trav Chang Thank you for choosing [facility] Patient Education Materials: Sexually Transmitted Disease A [...] evaluation. They should not have sex until theirhealth care providers say it is okay. HOW [...] to prevent HIV infection. This is called pre- exposure prophylaxis (PrEP). You are considered at risk [...] HIV. You should then be tested every 3months for as long as you are taking [...] Document Reviewed: 03/28/2014 ExitCare? Patient Information ?2014 [employer]. This information is not intended to replace advice given to you by your health care provider. Make sure you discuss any questions you have with yourhealth care provider. I, BEATRIS MACK , have received the following patient education materials/instructions and haveverbalized understanding: Patient Education Materials: Sexually Transmitted Disease Follow-up Instructions: With: Address: When: Jeanine Gimenez [address] [place] [address], [address] [address] [facility] () In 3 days 08/05/2019 Prescriptions: Patient Signature Date Clinician/Nurse Signature Date 08/02/19 14:51:07[facility] Clinical Summaryon [id number] Clinical Summary [address] [address] ED Clinical Summary Person Information Name: BEATRIS MACK [facility] Age: 19 Years : 2000 12:00 AM Sex: Female Language: Chadian PCP: Jeanine Gimenez DO Marital Status: Single Phone: [phone] Visit Id: Visit Reason: Vaginal pain; Vaginal [...] 08/01/2019 12:06 PM 08/01/2019 12:06 PM ADDRESS: [address] [place] [phone] [facility] DOC NOTES: MEDICAL INFORMATION: Prescriptions Given: Prescription Display metronidazole (Flagyl 500 mg Tab) 500 mg = 1 tab(s), Oral, q12hr, X 7 day(s), # 14 tab(s), Refills(s) 0 PATIENT EDUCATION INFORMATION: Instructions: Trichomoniasis; Sexually Transmitted Disease; Safe Sex; Cervicitis Follow up: With: Address: When: Saida BAIG [address] [place] [address] [employer] (1) In 3 days 08/04/2019 DIAGNOSIS: Cervicitis; STD exposureNormalFisher Zain Medical CenterED Note-Physicianon [id number] Note-PhysicianBasic Information Time Seen: Agusto Oshea PA-C 08/01/2019 [...] examination shows a large amount of abnormal whiteand yellow discharge concerning for candidiasis or bacterial vaginosis. Given her history and physical examination findings, she is treated empirically here in the ED with ceftriaxone and azithromycin for chlamydia and gonorrhea coverage. She'll be discharged home on Flagyl for both bacterial vaginosis and Trichomonas coverage. Additionally, she is treated with Diflucan for yeast. She is educatedas a sexual practices, and is to follow-up with LACQUERER and PCP.Patient was encouraged to return to [...] q12hr Follow-up With When Contact Information Saida SAFIA In 3 days 08/04/2019 EST [address] [place], [place] [address] Business (1) Additional Instructions: Patient Education Trichomoniasis Sexually Transmitted Disease Safe Sex Cervicitis Attestation Patient seen and evaluated by the physician seismic survey assistant. Attending physician was present in the emergency department and supervised care. This report was transcribed using voice recognition software. Every effort was made to ensure accuracy, however, inadvertently computerized hydroelectric mechanic mistakes may be present. ATTENDING NOTE: I [...] data available. Diagnostic Results No qualifying data available.[facility] HospitalComment on above: Result Comment: Electronically Signed By: Agusto Oshea PA-C\.br\Date and Time Signed: 08/01/1912:46 EST\.br\Electronically Co-Signed By: Joanne Lutz DO\.br\Date and Time Co-Signed: 08/01/1915:41 ESTED Patient Education Noteon [id number] Patient Education NoteFamily Medicine Sexually Transmitted Disease A sexually transmitted [...] evaluation. They should not have sex until theirhealth care providers say it is okay. HOW [...] to prevent HIV infection. This is called pre- exposure prophylaxis (PrEP). You are considered at risk [...] HIV. You should then be tested every 3months for as long as you are taking [...] Document Reviewed: 03/28/2014 ExitCare? Patient Information ?2015 [employer]. This information is not intended to replace advice given to you by your health care provider. Make sure you discuss any questions you have with yourhealth care provider. Cervicitis Cervicitis is a soreness [...] Document Reviewed: 03/01/2014 ExitCare? Patient Information ?2015 [employer]. This information is not intended to replace advice given to you by your health care provider. Make sure you discuss any questions you have with yourhealth care provider. Obstetrics and Gynecology Trichomoniasis Trichomoniasis [...] ? Your health care provider may recommend ujfi-gjk-rwhuuoh medicines or creams to decrease itching or irritation. ? Your sexual partner will need to be treated if infected. HOME CARE INSTRUCTIONS ? Take medicines only as directed by your health care provider. ? Take yglw-coh-ogephei medicine for itching or irritation as directed by your health care provider. ? Do not have sexual intercourse while you have the infection. ? Women should not douche or wear tampons while they have the infection. ? Discuss your infection with your partner. Your partner may have gotten the infection from you, oryou may have gotten it from your partner. [...] Document Reviewed: 06/19/2014 ExitCare? Patient Information ?2015 [employer]. This information is not intended to replace advice given to you by your health care provider. Make sure you discuss any questions you have with yourhealth care provider. Preventive Medicine Safe Sex Safe sex is about reducing the risk of giving or getting a sexually transmitted disease (STD). STDsare spread through sexual contact involving the genitals, [...] intercourse. This includes vaginal, oral, and anal sexualactivity. Both females and males should wear condoms during oral sex. Only use latex or polyurethane condoms and water-based lubricants. Using petroleum-based lubricants or oils to lubricate a condomwill weaken the condom and increase the chance [...] are being treated for an STD. If youor your partner has herpes, avoid sexual contact when blisters are present. Use condoms at all other times. ? If you are at risk of being infected with HIV, it is recommended that you take a prescription medicine daily to prevent HIV infection. This is called pre- exposure prophylaxis (PrEP). You are considered at risk [...] HIV. You should then be tested every 3months for as long as you are taking [...] Document Reviewed: 02/28/2013 ExitCare? Patient Information ?2015 [employer] [facility]. This information is not intended to replace advice given to you by your health care provider. Make sure you discuss any questions you have with yourhealth care provider.[facility] Patient Summaryon [id number] Patient Summary [address] [address] Patient Discharge Instructions Person Information Name: BEATRIS MACK Age: 19 Years Arrival Date: 08/01/2019 11:15 AM Discharge Diagnosis: Cervicitis; STD exposure Primary Care Physician: Jeanine Gimenez DO Provider Information Primary Provider: Joanne Luzt Advanced Lace Cutter:Agusto Oshea PA-C The exam and treatment you received in the Emergency Department were for an urgent problem and are not intended as complete care. It is important that you follow up with a doctor, nurse practitioner,or physician?s seismic survey assistant for ongoing care. If your symptoms [...] Follow-up Instructions: With: Address: When: Saida BAIG [address] [phone] Business (1) In 3 days 08/04/2019 In the event that this physician does not participate in your insurance network, please consult with your insurance company to find a nearby participating provider. Patient Education Materials: Trichomoniasis; Sexually Transmitted Disease; Safe Sex; Cervicitis A MESSAGE TO ALL PATIENTS REGARDING OPIOIDS PRESCRIPTION OPIOIDS: WHAT YOU NEED TO KNOW Prescription opioids can be used to help relieve woqtipcw-vg-krxrxx pain and are often prescribed following a [...] and have fewer risks and side effects. Optionsmay include: ? Pain relievers such as acetaminophen, [...] unused prescription opioids: Find your community drug take- back program or yourpharmacy mail-back program, or flush them down the toilet, following guidance from the Food and Drug Administration (www.fda.gov/Drugs/ResourcesForYou). ? Visit www.cdc.gov/drugoverdose to learn about the risks of opioids abuse and overdose. ? If you believe you may be struggling with addiction, tell your health wound care coordinator and ask for guidance or call [facility]?S National Helpline at 5-378-277-SHCQ. g Source: US Department of Health and Human Services/Center for Disease Control & Prevention [facility] Medications Given: Medication Dose Route azithromycin 1000.00 mg Oral ceftriaxone 250.00 mg IntraMuscular Left Gluteus Medius fluconazole 150.00 mg Oral Medication Information: New Medications Printed Prescriptions metronidazole (Flagyl 500 mg Tab) 1 Tabs By Mouth every 12 hours for 7 Days. Refills: 0. Comment: Pharmacy Information: Trav Chang Thank you for choosing [facility] Patient Education Materials: Trichomoniasis Trichomoniasis is an [...] ? Your health care provider may recommend skgg-gvq-bxtoqzl medicines or creams to decrease itching or irritation. ? Your sexual partner will need to be treated if infected. HOME CARE INSTRUCTIONS ? Take medicines only as directed by your health care provider. ? Take nhfz-rvw-xbjwjlu medicine for itching or irritation as directed by your health care provider. ? Do not have sexual intercourse while you have the infection. ? Women should not douche or wear tampons while they have the infection. ? Discuss your infection with your partner. Your partner may have gotten the infection from you, oryou may have gotten it from your partner. [...] 01/22/2015 Document Reviewed: 06/19/2014 ExitCare? Patient Information ?2014 [employer]. This information is not intended to replace advice given to you by your health care provider. Make sure you discuss any questions you have with yourhealth care provider. Sexually Transmitted Disease A sexually [...] evaluation. They should not have sex until theirhealth care providers say it is okay. HOW [...] to prevent HIV infection. This is called pre- exposure prophylaxis (PrEP). You are considered at risk [...] HIV. You should then be tested every 3months for as long as you are taking [...] Document Reviewed: 03/28/2014 ExitCare? Patient Information ?2015 [employer]. This information is not intended to replace advice given to you by your health care provider. Make sure you discuss any questions you have with yourhealth care provider. Safe Sex Safe sex is about reducing the risk of giving or getting a sexually transmitted disease (STD). STDsare spread through sexual contact involving the genitals, [...] intercourse. This includes vaginal, oral, and anal sexualactivity. Both females and males should wear condoms during oral sex. Only use latex or polyurethane condoms and water-based lubricants. Using petroleum-based lubricants or oils to lubricate a condomwill weaken the condom and increase the chance [...] are being treated for an STD. If youor your partner has herpes, avoid sexual contact when blisters are present. Use condoms at all other times. ? If you are at risk of being infected with HIV, it is recommended that you take a prescription medicine daily to prevent HIV infection. This is called pre- exposure prophylaxis (PrEP). You are considered at risk [...] HIV. You should then be tested every 3months for as long as you are taking [...] Document Reviewed: 02/28/2013 ExitCare? Patient Information ?2015 [employer]. This information is not intended to replace advice given to you by your health care provider. Make sure you discuss any questions you have with yourhealth care provider. Cervicitis Cervicitis is a soreness [...] Document Reviewed: 03/01/2014 ExitCare? Patient Information ?2015 [employer]. This information is not intended to replace advice given to you by your health care provider. Make sure you discuss any questions you have with yourhealth care provider. FREDERICK Stein HAYLEE T , have received the following patient education materials/instructions and haveverbalized understanding: Patient Education Materials: Trichomoniasis; Sexually Transmitted Disease; Safe Sex; Cervicitis Follow-up Instructions: With: Address: When: Saida BAIG [address] [place] [address] Business (1) In 3 days 08/04/2019 Prescriptions: [metronidazole (Flagyl 500 mg Tab)] Patient Signature Date Clinician/Nurse Signature Date 08/01/19 12:06:35Normal[facility]Pre[facility] Noteon 08-01-2019 Pre-Arrival NotePre-Arrival Summary Name: phil Current Date: 08/01/2019 11:16:54 EST Gender: Female Date of : Age: 89 Pre-Arrival Type: EMS ETA: 08/01/2019 11:29:00 EST Primary Care Physician: Presenting Problem: fall, posterior head lac. Pre-Arrival User: Dominique Matamoros RN Referring Source: Location: [place] Completion Date/Time: 08/01/19 10:59:00 [facility] Emergency Department Pre-Hospital Report Form Vital Signs: Pre-Hospital Report: Treatment in Route: Response to Treatment: Misc. Issues:[facility] HospitalCNPTOUTREACHon 05-06-2019 CNPTOUTREACHPatient Outreach (NEPHMN) BEATRIS MACK ([id number]) 1 F Date Time Provider Department 05/06/19 SATISH VILLALPANDO NEPHMN During your visit today, we recorded the following information about you: Allergies As of Date: 05/06/2019 (Not on File) Date Reviewed: Never Reviewed Visit Diagnosis:Screening for genitourinary condition [Z13.89] Order(s):UA CHEMSTRIP ONLY [SQUA] Order #: [id number] Problem List As Of Date: 05/06/2019 (None) Encounter Status:Closed by JANET HODGEUSER on 05/23/19No[facility] Vital Signs Date TimeVital SignValuePerforming CyvdvvdwpUxtthmnd27-15-9643 10:56-0400Body uwpgdp485.18 cmLiborio Jasmine DMD Work Phone: [phone] [place], [place] 5804010-22-2025 10:56-0400Body mass index (BMI) [Ratio]27.41 kg/e9FuzvvLiborio Jasmine DMD Work Phone: [phone])[address] [place], [place] 5804010-22-2025 10:56-0400Body surface area Derived from formula1.94 l6MddsnLiborio Jasmine DMD Work Phone: [phone])[address] [place], [place] 5804010-22-2025 10:56-0400Body shseixvqxpb29.2 [degF]Liborio Jasmine DMD Work Phone: [phone] [place], [place] 5804010-22-2025 10:56-0400Body egdpnj10.38 kgLiborio Jasmine DMD Work Phone: [phone])[address] [place], [place] 5804010-22-2025 10:56-0400Diastolic blood mm[Hg]Liborio Jasmine DMD Work Phone: 1(292)[address] [place], [place] 5804010-22-2025 10:56-0400Heart rate81 /minLiborio Jasmine DMD Work Phone: [phone] [place], [place] 5804010-22-2025 10:56-0400Systolic blood wkgueeww661 mm[Hg]Liborio Jasmine DMD Work Phone: [phone])[address] [place], [place] 5804007-30-2025 16:32-0400Body lentfl214.2 cmRowdy Honeycutt DPM Work Phone: [facility] HospitalYtymzvrrgi60-04-4152 16:32-0400Body mass index (BMI) [Ratio]27.25 kg/o1GlplifkgRowdy Honeycutt DPM Work Phone: [facility] HospitalEulbekvzjz45-37-6852 16:32-0400Body .93 kgRowdy Honeycutt DPM Work Phone: [place] [address]Ljgypwnrpb12-17-1357 16:32-0400Respiratory rate16 /minNicholas Brown DPM Work Phone: [facility] HospitalOxrdddujqe43-75-9130 16:25-0400Body edadtn758.2 cmNicholas Brown DPM Work Phone: [facility] HospitalVgnbszslhf25-15-6838 16:25-0400Body mass index (BMI) [Ratio]27.25 kg/p9Vjwvbjsj Brown DPM Work Phone: [facility] HospitalDfmhintkkv86-57-1310 16:25-0400Body obviur06.93 kgNicholas Brown DPM Work Phone: [facility] HospitalXbuszkbstc48-78-5485 16:25-0400Respiratory rate16 /minNicholas Brown DPM Work Phone: [facility] HospitalWwfinxvnxe43-10-2377 13:31-0400Body mass index (BMI) [Ratio]27.25 kg/t1WdfbfdAnuja Saab MD Work Phone: [facility] HospitalKgzgwbaceu57-44-0917 13:31-0400Body zyyyln30.93 kgAnuja Saab MD Work Phone: [facility] HospitalHmddkbyxhp09-40-9748 13:31-0400Diastolic blood xvofwnsy09 mm[Hg]Anuja Saab MD Work Phone: [facility] HospitalKbhwfnvkph82-69-8428 13:31-0400Systolic blood jqyaszuu632 mm[Hg]Anuja Saab MD Work Phone: [place] [address]Fgyubweenv75-59-9331 15:11-0400Body .2 cmNicholas Brown DPM Work Phone: [place] [address]Akssgkdugz83-34-0261 15:11-0400Body mass index (BMI) [Ratio]27.41 kg/l3Wpldhfun Brown DPM Work Phone: [place] [address]Eouwmaycsf89-84-2598 15:11-0400Body bviegc02.38 kgNicholas Brown DPM Work Phone: [place] [address]Zlylkplyzo01-40-3828 15:11-0400Respiratory rate16 /minRowdy Honeycutt DPM Work Phone: [facility] HospitalSthuvdnjqy60-95-6322 14:58-0400Body zetrxz165.18 cmAaron Jasmeet DO Work Phone: [facility]07-12-2025 14:58-0400 Body uvtzgjhfkuh36.3 [degF]Shad Alamo DO Work Phone: [phone])829-[facility]07-12-2025 14:58-0400 Body aoyeqg15.75 kgShad Alamo DO Work Phone: [phone])166-[address] [place], [place] 0288207-12-2025 14:58-0400 Diastolic blood oxbrnoan81 mm[Hg]Shad Alamo DO Work Phone: 1(090)081-[address] [place], [place] 0288207-12-2025 14:58-0400 Heart ccqs868 /minKirkron Jasmeet DO Work Phone: [phone] [place], [place] 0288207-12-2025 14:58-0400 Respiratory rate18 /minKirkron Jasmeet DO Work Phone: [phone])324-[facility]07-12-2025 14:58-0400 SaO2% (BldA) [Mass fraction]96 %Shad Alamo DO Work Phone: [facility]07-12-2025 14:58-0400 Systolic blood yzvjksch790 mm[Hg]Shad Alamo DO Work Phone: 1(722)639-[facility]07-07-2025 11:07-0400 Body efxiem058.2 cmRowdy Honeycutt DPM Work Phone: [facility] HospitalWhdstdaezk68-61-2695 11:07-0400Body mass index (BMI) [Ratio]27.41 kg/n9VovwzcupRowdy Honeycutt DPM Work Phone: [facility] HospitalEbqatmtvli87-44-9290 11:07-0400Body oosptu29.38 kgRowdy Honeycutt DPM Work Phone: [facility] HospitalAionjvcbzi50-67-5729 11:07-0400Respiratory rate18 /minRowdy Honeycutt DPM Work Phone: [facility] HospitalOllavuhyua90-23-4506 13:10-0400Body ywqpks213.2 cmRowdy Honeycutt DPM Work Phone: [facility] HospitalUkdcmvtpye98-84-1983 13:10-0400Body mass index (BMI) [Ratio]27.41 kg/c2KmwlhkonRowdy Honeycutt DPM Work Phone: [facility] HospitalKquakfjrao48-40-4117 13:10-0400Body iwliky75.38 kgRowdy Honeycutt DPM Work Phone: [facility] HospitalOlgujlzcvj85-48-2732 13:10-0400Respiratory rate18 /Devyn Honeycutt DPM Work Phone: [facility] HospitalMxrpkzixyy84-05-9488 14:32-0400Body lqapnd437.18 cmAirvin Alamo DO Work Phone: 1(200)070-[facility]06-18-2025 14:32-0400 Body mass index (BMI) [Ratio]27.7 kg/t6BsqdaShad Alamo DO Work Phone: 1(579)073-[address] [place], [place] 0288206-18-2025 14:32-0400 Body zqzptjggwuj81 [degF]Shad Alamo DO Work Phone: [phone])195-[address] [place], [place] 0288206-18-2025 14:32-0400 Body apvzhq66.28 kgShad Alamo DO Work Phone: [phone]-[facility] 14:32-0400 Diastolic blood aqsgkkcl90 mm[Hg]Shad Alamo DO Work Phone: [phone]06-18-2025 14:32-0400 Heart rate78 /minShad Alamo DO Work Phone: [phone]-[facility]06-18-2025 14:32-0400 Respiratory rate18 /minKirkron Jasmeet DO Work Phone: [phone])380-[address] [place], [place] 0288206-18-2025 14:32-0400 SaO2% (BldA) [Mass fraction]98 %Shad Alamo DO Work Phone: [phone] [place], [place] 0288206-18-2025 14:32-0400 Systolic blood gozmgkbi430 mm[Hg]Shad Alamo DO Work Phone: [phone])[address]06-12-2025 16:22-0400 Body xboukh418.18 Deeirvin Alamo DO Work Phone: [phone])[address]06-12-2025 16:22-0400 Body tlmahmsfsww53.2 [degF]Shad Alamo DO Work Phone: [phone])[address]06-12-2025 16:22-0400 Body repeua43.6 kgShad Alamo DO Work Phone: [phone])[address]06-12-2025 16:22-0400 Diastolic blood jpumrlnu95 mm[Hg]Shad Alamo DO Work Phone: [phone]06-12-2025 16:22-0400 Heart rate98 /minShad Alamo DO Work Phone: [phone])[address]06-12-2025 16:22-0400 Respiratory rate20 /minShad Alamo DO Work Phone: [phone])[address]06-12-2025 16:22-0400 SaO2% (BldA) [Mass fraction]98 %Shad Alamo DO Work Phone: [phone])[address]06-12-2025 16:22-0400 Systolic blood frojfgcs081 mm[Hg]Shad Alamo DO Work Phone: [phone])[address]06-10-2025 17:34-0400 Body scyric104.18 Alethea Alamo DO Work Phone: [phone])[address]06-10-2025 17:34-0400 Body opgantvjlch65.1 [degF]Shad Alamo DO Work Phone: [phone]06-10-2025 17:34-0400 Body esmfgu48.75 kgShad Alamo DO Work Phone: [phone])[address]06-10-2025 17:34-0400 Diastolic blood zpithsis91 mm[Hg]Shad Alamo DO Work Phone: 1(292)616-[address] [place], [place] 0288206-10-2025 17:34-0400 Heart rate81 /Elisabet Alamo DO Work Phone: 1([phone])398-[address] [place], [place] 0288206-10-2025 17:34-0400 Respiratory rate18 /minKirkron Jasmeet DO Work Phone: [phone])[address]06-10-2025 17:34-0400 SaO2% (BldA) [Mass fraction]97 %Shad Alamo DO Work Phone: [phone] [place], [place] 0288206-10-2025 17:34-0400 Systolic blood scpmgzef319 mm[Hg]Shad Alamo DO Work Phone: 1(261)407-[address] [place], [place] 0288210-21-2024 16:00-0400 Diastolic blood omlqvifp03 mm[Hg]PHYSICIAN NO [facility]10-21-2024 16:00-0400Heart rate76 /minPHYSICIAN [facility]10-21-2024 16:00-0400Respiratory rate16 /minPHYSICIAN [facility]10-21-2024 16:00-8215VaW4% (BldA) [Mass fraction]98 %PHYSICIAN [facility]10-21-2024 16:00-0400Systolic blood rlobttkn166 mm[Hg]PHYSICIAN NO [facility]10-21-2024 13:07-0400Body reuusb727.18 cmPHYSICIAN [facility]10-21-2024 13:07-0400Body nocpznlvhil37.6 [degF]PHYSICIAN [facility]10-21-2024 13:07-0400 Body ahkzwn76.[address] [facility] 01-15-2024 23:37-0400Diastolic blood pfwqkreh92 mm[Hg]PHYSICIAN NO [facility]04-26-2024 23:37-0400Heart rate68 /minPHYSICIAN [facility]04-26-2024 23:37-0400Respiratory rate 18 /minPHYSICIAN [facility]04-26-2024 23:37-0400 SaO2% (BldA) [Mass fraction]96 %PHYSICIAN NO [facility]04-26-2024 23:37-0400Systolic blood mm[Hg]PHYSICIAN NO [facility]04-26-2024 19:53-0400Body .18 cm PHYSICIAN [facility]04-26-2024 19:53-0400Body abfrvwqykcy35.3 [degF]PHYSICIAN [facility] 01-15-2024 19:53-0400Body egykal[address] [facility]01-24-2024 03:58-0500Body uxqipf390.18 cmPHYSICIAN [facility]01-24-2024 03:58-0500Body tjeltrykhla96.1 [degF]PHYSICIAN [facility]01-24-2024 03:58-0500 Body kgPHYSICIAN [facility]01-24-2024 03:58-0500Diastolic blood ezivpfaq47 mm[Hg]PHYSICIAN [facility]01-24-2024 03:58-0500Heart rate97 /minPHYSICIAN [facility]01-24-2024 03:58-0500Respiratory rate18 /min PHYSICIAN [facility]01-24-2024 03:58-0235DsG4% (BldA) [Mass fraction]98 %PHYSICIAN [facility] 10-14-2023 03:58-0500Systolic blood ruoigvsb704 mm[Hg]PHYSICIAN NO [facility]12-06-2023 23:03-0500Body xtboma779.18 cm PHYSICIAN [facility]12-06-2023 23:03-0500Body nwfoxqaneau12 [degF]PHYSICIAN [facility] 08-26-2023 23:03-0500Body .[address] [facility]12-06-2023 23:03-0500Diastolic blood uvcznobp32 mm[Hg]PHYSICIAN NO [facility]12-06-2023 23:03-0500Heart rate76 /min PHYSICIAN [facility]12-06-2023 23:03-0500 Respiratory rate16 /minPHYSICIAN [facility] 08-26-2023 23:03-7432DsE7% (BldA) [Mass fraction]99 %PHYSICIAN NO [facility]12-06-2023 23:03-0500Systolic blood sofimtil012 mm[Hg]PHYSICIAN [facility]04-01-2023 20:53-0400 Body tkujxy349.[address] [facility] 12-20-2022 20:53-0400Body aevaidrbmqb13.1 [degF]PHYSICIAN [facility]04-01-2023 20:53-0400Body juxezj25.[address] [facility]04-01-2023 20:53-0400Diastolic blood lbwbjkha30 mm[Hg]PHYSICIAN NO [facility]04-01-2023 20:53-0400Heart rate83 /minPHYSICIAN [facility] 12-20-2022 20:53-0400Respiratory rate16 /minPHYSICIAN [facility]04-01-2023 20:53-5536YjB6% (BldA) [Mass fraction]97 % PHYSICIAN [facility]04-01-2023 20:53-0400 Systolic blood witdlknm504 mm[Hg]PHYSICIAN [facility]12-02-2022 22:16-0500Body .[address] [facility]12-02-2022 22:16-0500Body mqvjxrajgjg41.2 [degF]PHYSICIAN [facility]12-02-2022 22:16-0500Body ezftfa60.[address] [facility]12-02-2022 22:16-0500 Diastolic blood jpdetrpc72 mm[Hg]PHYSICIAN [facility]12-02-2022 22:16-0500Heart rate86 /minPHYSICIAN [facility]12-02-2022 22:16-0500Respiratory rate18 /minPHYSICIAN [facility]12-02-2022 22:16-5285ZgO2% (BldA) [Mass fraction]98 %PHYSICIAN [facility]12-02-2022 22:16-0500Systolic blood jvspwzna694 mm[Hg]PHYSICIAN [facility]02-20-2020 22:26-0500BMI (Body Mass Index)24.7 kg/f2XZNXYMKettering Memorial Hospital Qfs39-43-2717 22:26-0500Body Lkisfbqshtv32.8 [degF] [facility] Pwo31-43-9280 22:26-0500Body dlqaxr28.7 kg [facility] Fpp48-64-9052 22:26-0500BP Tilvkxbkl24 mm[Hg][facility] Vsz33-27-9575 22:26-0500BP Enrnngbl145 mm[Hg][facility] Vqk27-75-8070 22:26-5910Nwuavj306.18 [facility] Rbk58-00-6027 22:26-0500Pulse (Heart Rate) 76 /[facility] Kij64-24-7766 22:26-0500Pulse Vjjjwfmq02 %[facility] Yzg37-49-2485 22:26-0500 Respiratory Rate16 /[facility] Fnx86-92-6040 22:43-0500BP Jgjpgfdqe21 mm[Hg][facility] Zul54-08-6015 22:43-0500BP Pwraujat407 mm[Hg][facility] Ctr 10-19-2019 22:43-0500Pulse (Heart Rate)75 /[facility] Gwg04-68-7055 22:43-0500Pulse Xlpjemdz90 %[facility] Koh87-45-0431 22:43-0500Respiratory Rate18 /minC[facility] Avd39-49-8278 17:47-0500BMI (Body Mass Index)24.8 kg/v0SDDQMXC[facility] Lik05-33-1833 17:47-0500Body Qymgaegglma43.1 [degF] [facility] Mto17-22-6366 17:47-0500Body tujeju87.05 kg [facility] Jym98-52-6010 17:47-8776Yisqiu140.18 cm [facility] Erq94-57-5396 20:23-0500BP Lhmlpluzg92 mm[Hg][facility] Nhz35-99-5154 20:23-0500BP Qeidlejj625 mm[Hg][facility] Zwy34-50-8495 20:23-0500Pulse (Heart Rate)79 /[facility] Xtk72-77-4193 20:23-0500Pulse Iyyqvqld20 %[facility] Mzy68-61-8293 20:23-0500 Respiratory Rate16 /[facility] Zym46-24-8814 18:13-0500BMI (Body Mass Index)24.5 kg/d4DEKBYXC[facility] Clinic [facility] Ctr 10-02-2019 18:13-0500Body Ndkvmfgdrrp82 [degF][facility] Bec90-35-7255 18:13-0500Body jzzybs75.25 kgC[facility] Bqz68-54-0173 18:13-0141Byrjtj242.18 cmFABucyrus Community Hospital Fxq50-92-5609 23:41-0500BP Qxwgpznor27 mm[Hg][facility] Nnf69-80-6923 23:41-0500BP Ozwpgagl324 mm[Hg][facility] Jti15-06-0713 23:41-0500Pulse (Heart Rate)109 /[facility] Ekw38-39-3361 23:41-0500Pulse Gythdozo23 %[facility] Wkw87-95-7294 23:41-0500Respiratory Rate20 /minFABucyrus Community Hospital Dse90-25-5536 21:43-0500Body Pfdllixcxdz88.4 [degF]FAMILY [facility] Zxp89-52-7300 19:08-0500BMI (Body Mass Index)24.5 kg/v5QTBNODC[facility] Clinic [facility] Pqe74-80-7568 19:08-0500 Body ckrtul30.2 kgC[facility] Zln77-22-5868 19:08-0500 Mimxjc359.18 cmFABucyrus Community Hospital Ctr Encounters Encounter DateEncounter TypeCare ProviderFacilityStart: 07-12-2025 End: 35-82-9808hnhccdufazksz oral evaluation - new or established patientLiborio Jasmine DMD Work Phone: [facility]: 07-12-2025 End: 71-41-6103Oeydiqvct identifierLiborio Jasmine DMD Work Phone: Dental ClinicStart: 27-79-5984awfuftjglrCubrh Kanani [facility] DEPARTMENTStart: 05-24-2025 End: 74-71-3903Mexlppzqa encounterRowdy Honeycutt DPM Work Phone: [facility] PodiatryStart: 05-10-2025 End: 22-15-3733Nzdoflcen identifierSusachandana Mali Gimenez WHCNP Work Phone: [facility]Start: 04-26-2025 End: 02-60-3589Hlxuzn outpatient visit 5 minutesAnuja Saab MD Work Phone: NOXW Nani OBGYNComment on above:History of abnormal cervical Pap smear; HPV in femaleStart: 04-19-2025 End: 44-28-3386hyjeaqlsdvAQNGGWSC A BROWNNot AvailableStart: 04-19-2025 End: 56-91-8582Rfgpra follow up visit related to original Bonnie Honeycutt DPM Work Phone: [facility] Suggs PodiatryComment on above:Closed fracture of proximal end of right fibula, unspecified fracture morphology, initial encounter(Primary Dx)Start: 04-19-2025 End: 42-18-3517Vxhnlx Madi Janel Gray DPM Work Phone: [facility] PodiatryStart: 04-19-2025 End: 71-79-4892Adscva Madi Janel Gray DPM Work Phone: [facility] PodiatryStart: 04-17-2025 End: 74-70-0442Thqnbmntm Miranda G[facility]enez [facility] Work Phone: [facility] Rocktart: 04-12-2025 End: 85-08-6856Tduwlk follow up visit related to original Bonnie Janel Gray DPM Work Phone: [facility] MT PODComment on above:Closed fracture of proximal end of right fibula, unspecified fracture morphology, initial encounter (Primary Dx)Start: 04-12-2025 End: 91-75-3358htjgitxmnvVNVJCAXG A BROWNNot AvailableStart: 04-12-2025 End: 67-64-8328bppuhdokeyAHPEPJ P JONESNot AvailableStart: 04-12-2025 End: 86-64-9129Yhczutg encounter statusAnuja Saab MD Work Phone: [facility] HealthcareStart: 04-12-2025 End: 74-82-3836Wmlwynqe preventive med est patient 18-39 yrsAnuja Saab MD Work Phone: [facility] OBComment on above:Encounter for gynecological examination without abnormal finding; Encounter for screening for cervical cancer; Vaginitis and vulvovaginitis; Missed with demise before 20 completed weeks of gestation ([facility]); History of abnormal cervical Pap smearStart: 04-05-2025 End: 80-56-5644mkcfjsvvvvVNPASGTY A BROWNNot AvailableStart: 04-05-2025 End: 53-65-0402Lncjsq follow up visit related to original saritaYobanyphilipyolanda Islas Gray DPM Work Phone: [facility] MT PODComment on above:Closed fracture of proximal end of right fibula, unspecified fracture morphology, initial encounter (Primary Dx)Start: 04-05-2025 End: 42-23-7309Hwqlahbeverley Honeycutt DPM Work Phone: noMS MT PODStart: 04-05-2025 End: 68-63-0886Zogcorbeverley Honeycutt DPM Work Phone: [facility] MT PODStart: 04-01-2025 End: 59-51-8427owsdybrzmtSujoj Martinez DO Work Phone: [facility] Work Phone: Start: 04-01-2025 End: 92-97-0084Pwlptmpo ReferredMariam A Royer MD-LAB Path [facility] Start: 78-29-5951Pkrndvhydq ReferredMariam A Royer MD-LAB [facility] Start: 04-01-2025 End: 25-52-4711Xbuvpgbpe department patient visitShad Alamo DO Work Phone: [phone]-Iqecijrvs Room Work Phone: Start: 03-27-2025 End: 97-81-3634Lgljoybeverley Honeycutt DPM Work Phone: [facility] MT PODStart: 03-27-2025 End: 28-27-2916Tfvykrbeverley Honeycutt DPM Work Phone: [facility] MT PODStart: 03-27-2025 End: 83-57-6030Pwdhrq outpatient visit 25 minutesNicjihan Honeycutt DPM Work Phone: [facility] MT PODComment on above:Closed fracture of proximal end of right fibula, unspecified fracture morphology, initial encounter (Primary Dx)Start: 03-27-2025 End: 90-23-6164eyfhsqihwyNHJSVCJU A BROWNNot AvailableStart: 03-23-2025 End: 05-57-8187Izrtgxe encounter procedureAaron Jasmeet DO-Ultrasound [facility] Work Phone: Start: 03-23-2025 End: 19-98-0996stagilakpgFepbw Martinez DO Work Phone: [facility] Work Phone: Start: 03-21-2025 End: 09-60-0907Lnyldow encounter procedureLEN Saab-[facility] McAllentart: 03-21-2025 End: 15-40-5714edvkjgcunzLujiw Martinez DO Work Phone: [facility] Work Phone: Start: 03-21-2025 End: 15-01-3366Nzttqjbeverley Honeycutt DPM Work Phone: [facility] MT PODStart: 03-21-2025 End: 82-03-3494Pxqgvdbeverley Honeycutt DPM Work Phone: [facility] MT PODStart: 03-21-2025 End: 19-68-6966Rplpdh outpatient new 45 minutesNicjihan Honeycutt DPM Work Phone: [facility] MT PODComment on above:Closed fracture of proximal end of right fibula, unspecified fracture morphology, initial encounter (Primary Dx)Start: 03-21-2025 End: 43-31-5230nttnlyodynMVZXFZFW A BROWNNot AvailableStart: 03-09-2025 End: 00-97-5017axnxcmrwxnMIKEKG P JONESNot AvailableStart: 03-08-2025 End: 42-37-7299Ixmjmts encounter procedureLluvia Schmidt MEDICAL AND SCIENTIFIC ILLUSTRATOR-[facility] Work Phone: Start: 03-02-2025 End: 44-59-4670Wxrwpwccf department patient visitShad Alamo DO Work Phone: [phone]-Mbqclsime Room Work Phone: Start: 02-28-2025 End: 82-99-6293Xayavzehf department patient visitShad Alamo DO Work Phone: [facility]-Emergency [facility] Work Phone: Start: 02-23-2025 End: 89-53-7477Weyvfyev Result EncounterAnuja Saab MD Work Phone: [facility] External Department UnsolicitedStart: 02-23-2025 End: 82-98-3460Ubuqvvjn Result EncounterAnuja Saab MD Work Phone: [facility] External Department UnsolicitedStart: 02-23-2025 End: 37-84-8134Wvjyjhp encounter procedureShad Alamo DO Work Phone: [facility]-Lab [facility] Work Phone: Start: 02-23-2025 End: 46-21-6525Otggzs OnlyAnuja Saab MD Work Phone: [facility] SWS OBComment on above:Anemia, unspecified type (Primary Dx)Start: 02-22-2025 End: 52-35-5001Usizoln encounter procedureShad Alamo DO Work Phone: [facility]-Lab [facility] Campustart: 02-22-2025 End: 50-78-4060cbhuvmolzgOwjvf Martinez DO Work Phone: [facility] Work Phone: Start: 02-22-2025 End: 91-98-1427Kilgkciy Result Cindy Saab MD Work Phone: [facility] External Department UnsolicitedStart: 02-22-2025 End: 31-60-9610Oupuunmd Result Cindy Saab MD Work Phone: [facility] External Department UnsolicitedStart: 02-22-2025 End: 05-96-1074Wblhriixp encounterMadison Matthew RNNOMS SWS OBStart: 02-22-2025 End: 12-12-1699Sleetedc flow sheetNoms Sws Ob NurseNOMS SWS OBComment on above: GA: 2u2kFaazu: 02-22-2025 End: 72-87-9124cirgtjpbbsQXONEN JONESNot AvailableStart: 02-15-2025 End: 33-83-0121Fjcgeno encounter procedureAaron Jasmeet DO Work Phone: [facility]-Lab [facility] Campustart: 02-15-2025 End: 35-00-3516mumfcoedxrVssop Jasmeet DO Work Phone: [facility] Work Phone: Start: 02-01-2025 End: 42-09-0576Pjqxpif encounter procedureAaron Jasmeet DO Work Phone: [facility]-Lab [facility] Campustart: 02-01-2025 End: 71-42-2333lbktvuocqrCtddo Martinez DO Work Phone: [facility] Work Phone: Start: 09-24-2024 End: 57-32-0994sjychqvlbnBBYDNANDU NO [facility] Work Phone: Start: 09-24-2024 End: 87-95-6536Rypuztoy ReferredPHYSICIAN NO [facility] C[facility]-LAB [facility]ospStart: 07-14-2024 End: 95-98-6123icqjpzbvnlGPQXWZ [facility] Hospitaltart: 07-11-2024 End: 53-33-2954Hfilqkzpd department patient visitPHYSICIAN NO [facility] Ctr-Emergency Room Work Phone: Start: 01-15-2024 End: 03-72-7508Vsyocfcmx department patient visitPHYSICIAN NO [facility]-Emergency Room Work Phone: Start: 10-14-2023 End: 49-87-0342Huusnbeet department patient visitPHYSICIAN NO [facility] Ctr-Emergency Room Work Phone: Start: 08-26-2023 End: 82-72-3709Gkngwnezc department patient visitPHYSICIAN NO [facility] Ctr-Emergency Room Work Phone: Start: 06-03-2023 End: 35-04-8388Ajwoxrset department patient visitPHYSICIAN [facility] Work Phone: Start: 12-20-2022 End: 02-55-2259Lcoauhzdq department patient visitPHYSICIAN NO [facility] Ctr-Emergency Room Work Phone: Start: 08-22-2022 End: 81-06-6731Zryjkbgzx department patient visitPHYSICIAN [facility] Ctr-Emergency RoomStart: 06-07-2022 End: 00-59-3787kprqnlyjuqBO NONE LISTED REQUESTFacility:F2Qpqfe: 11-10-2019 End: 98-34-9514Sorggnycn department patient visitFAMILY NO-Emergency RoomStart: 10-19-2019 End: 92-35-4888Kifslkxxe department patient visitFAMILY NO-Emergency RoomStart: 10-02-2019 End: 44-63-6976Cvfrqseaj department patient visitFAMILY NO-Emergency RoomStart: 09-06-2019 End: 96-48-7764Txprszhbh department patient visitFAMILY NO-Emergency RoomStart: 07-26-2019 End: 37-83-0225Gtwhdnsoc department patient visitFAMILY NO-Emergency RoomStart: 11-11-2018 End: 36-97-3096Qmenvkqer department patient visitFAMILY NO-Emergency Room Procedures DateProcedureProcedure DetailPerforming ClinicianStart: 07-12-2025 End: 00-68-6559noqpkk risk assessment and documentation, with a finding of high riskKunal Mitali DMD Work Phone: Start: 07-12-2025 End: 89-79-1318Dhharwgthxgln of current medicationsKunal Talatani DMD Work Phone: Start: 07-12-2025 End: 11-92-0280sgehzlvbp - complete series of radiographic imagesKunal Talatani DMD Work Phone: Start: 07-12-2025 End: 58-10-7813umsg hygiene instructionsKjosé miguel Jasmine DMD Work Phone: Start: 07-12-2025 End: 92-59-0853wdkdfmegjnv - adultLiborio Jasmine DMD Work Phone: Start: 45-42-3560Zrojg ankle complete minimum 3 views Rowdy Honeycutt DPM Work Phone: Start: 67-04-7381ZA scan of thyroidAaluis alfredo Alamo DO Work Phone: Start: 16-59-9905Yqeci ankle complete minimum 3 views Rowdy Honeycutt DPM Work Phone: Start: 55-39-2458N-ray of right ankleAaluis alfredo Alamo DO Work Phone: Start: 31-51-3073Lsilxnpueuau chorionic quantitative Anuja Saab MD Work Phone: start: 03-81-3721Wszkvnjm screenTimothy DymondComment on above:Order Comment: Reason for Exam Generalized anxiety disorderResult Comment: PERFORMED BY: [address] [place] [address] PATHOLOGIST TIME CLERK CALLI JAFFE M.D.Start: 09-52-8186Avhjgtbt blood count with white cell differential, automatedAnuja Saab MD Work Phone: start: 87-98-7092Pllgwso bacterial quanttative colony count urineAnuja Saab MD Work Phone: start: 27-16-1566UQNKLBLFC B SURFACE ANTIGEN ([facility]) Anuja Saab MD Work Phone: start: 53-00-6177Gevutdbqm c antibodyAnuja Saab MD Work Phone: start: 02-27-1229Xyqvp immunodeficiency virus antibody testAaluis alfredo Alamo DO Work Phone: Comment on above:HIV-1/HIV-2 antibodies and HIV-1 p24 antigen were NOTdetected. There is no laboratory evidence of HIV infection.HIV NegativePerformed at: - [facility] [address] [id number] Director: Shai Marmolejo PhD, Phone: [phone]: 02-22-2025 [facility] Beatriz Saab MD Work Phone: start: 55-19-8718Taphk Ruby Alamo DO Work Phone: Start: 69-85-3544RA of abdomen and pelvis without contrastPHYSICIAN NO FAMILYStart: 80-92-5743Ggbrexfelrs vaginalis detection PHYSICIAN NO FAMILYStart: 87-58-9463Vikgurjn identification testPHYSICIAN NO FAMILYStart: 32-29-1466Teuzrltu culturePHYSICIAN NO FAMILYStart: 08-26-2023 Trichomonas vaginalis detectionPHYSICIAN NO FAMILYStart: 55-78-0484Bivqy culture PHYSICIAN NO FAMILYStart: 17-62-5023Ywfligsh culturePHYSICIAN NO FAMILYStart: 47-63-9843Aeebkjccmtd vaginalis detectionPHYSICIAN NO FAMILYStart: 11-10-2019 Urine cultureFAMILY NOStart: 10-19-2019 End: 69-18-4494Dwfinmrd identification testFAMILY NOStart: 97-55-1100Mndqfqwmlu ultrasound of gravid uterusFAMILY NOStart: 83-81-2794Tzywk cultureFAMILY NO Start: 10-02-2019 End: 66-50-7078Ztetjmbe identification testFAMILY NOStart: 10-17-6283Vknmt cultureFAMILY NOStart: 34-60-5479Cmrxoayrxa ultrasound of gravid uterusFAMILY NO Start: 60-59-8220Jcpgvytsuteg obstetric ultrasonographyFAMILY NOStart: 19-83-5442Hxaal cultureFAMILY NOStart: 06-30-2013 End: 31-88-6921BPXIytzsKirby MEADE Work Phone: Mycology culturePHYSICIAN NO FAMILYTrichomonas vaginalis detectionPHYSICIAN NO FAMILY Plan of Treatment DateCare ActivityDetailAuthorStart: 74-03-2045WayzamLindaChildren's Hospital [facility] Work Phone: Start: 43-88-9247Nfgxdux management education, guidance, and counselingDietary management education, guidance, and counseling [facility]art: 45-05-5825Wsstnxd referralPhyTriStar [facility] timeframe: 6 Months. (related to Body mass index [BMI] 27.0- 27.9, adult)[facility]art: 25-09-7518[facility] Work Phone: Start: 77-28-8793Roinemczv vaccinationNOMS Healthcare Start: 05-15-2025 End: 14-44-3277Anxwddp encounter kztslplne33/25/2025 4:30 PM EDT Office Visit [facility] [address] [place] [phone] Rowdy Honeycutt DPM [address] [address] [facility]ryStart: 04-26-2025 End: 30-36-0636Amcvynb encounter ytwcnsmya71/06/2025 4:00 PM EDT Office Visit [facility] [address] [place] [phone] Anuja Saab MD [address] [place] [address] [facility] LUGOGYNStart: 04-19-2025 End: 07-14-7692Rqsaicj encounter yzzhwyxjb76/30/2025 4:20 PM EDT Office Visit [facility] [address] [place] [phone] Rowdy Honeycutt DPM [address] [address] JON GRACIA PODStart: 49-14-9733[facility] Work Phone: Start: 04-12-2025 End: 76-94-0527Nrzdvupo identified in Urine by CultureUrine culture Microbiology Routine Encounter for gynecological examination without abnormal finding Vaginitis and vulvovaginitis History of abnormal cervical Pap smear Expected: 04/12/2025 (Approximate), Expires: 04/12/2026[facility] HealthcareComment on above: Expected: 04/12/2025 (Approximate), Expires: 04/12/2026Start: 04-12-2025 End: 98-66-6523Jzjehfw encounter kheoqltrg67/23/2025 1:15 PM EDT Office Visit [facility] [address] [place] [phone] Anuja Saab MD [address] [place] [address] [facility]Start: 04-11-2025 End: 02-17-0946xxhkuwktsz81/22/2025 11:00 AM EDT Initial [facility] [address] [place] [phone] Anuja Saab MD [address] [place] [address] [facility] OBStart: 04-05-2025 End: 24-05-6914Tsggeux encounter /16/2025 2:50 PM EDT Office Visit [facility] [address] [place] [phone] Rowdy Honeycutt DPM [address] [facility] [address] [place] [address] [facility] [place] PODStart: 33-99-0522Etiawmc function panelKeenan Private Hospitaltart: 23-02-6165NntsgfgyxKeenan Private Hospitaltart: 27-96-9603Mkflf cultureKeenan Private Hospitaltart: 04-01-2025 Bacteria identified in Urine by CultureUrine CultureKeenan Private Hospitaltart: 03-28-2025 End: 93-90-3479dcrzjlwwly01/08/2025 2:30 PM EDT Evaluation [facility] PT [address] [place] [phone] Meaghan Young PTNOMS SWS PTStart: 03-27-2025 End: 26-99-6472Neaoxbp encounter jenausize15/07/2025 11:10 AM EDT Office Visit [facility] [place] [facility] [address] [place] [address] Rowdy Honeycutt DPM [address] [facility] [address] [place] [address] Closed fracture of proximal end of right fibula, unspecified fracture morphology, initial encounter (Primary Dx)[facility] BASIL PODComment on above: Closed fracture of proximal end of right fibula, unspecified fracture morphology, initial encounter(Primary Dx)Start: 03-27-2025 End: 39-28-9764Xqwdsqzoplzc / ancillary services zmeneihcgw90/07/2025 8:00 AM EDT Ancillary Procedure [facility] OB [address] [place] [address] [facility] OBStart: 03-22-2025 End: 06-82-3776Chhmhxw encounter aoffekfxg33/02/2025 1:00 PM EDT Office Visit [facility] OB [address] [place] [address] Anuja Saab MD [address] [place] [address] [facility] SWS OBStart: 03-21-2025 End: 47-80-4380Jbzmnyq encounter obwcodjvd09/01/2025 1:00 PM EDT Office Visit [facility] [address] [place] [address] Rowdy Honeycutt DPM [address] [facility] [address] [place] [address] [facility] PODComment on above:ArrivedStart: 03-15-2025 End: 83-22-4928Xkocflc encounter /25/2025 10:45 AM EDT Office Visit [facility] [place] [facility] [address] [place] [address] Anuja Saab MD [address] [place] [address] [facility] OBStart: 02-22-2025 End: 23-77-2951Rhldk [facility] Hospitaltart: 02-22-2025 [facility]: 02-22-2025 End: 99-73-9288Bhdlgaqi identified in Urine by [facility] HospitalComment on above:Expected: 02/22/2025, Expires: 02/22/2026Start: 02-22-2025 End: 78-69-9526Ipowk type and Indirect antibody screen panel - BloodType and screen Lab Routine care, subsequent in first trimester Expected: 02/22/2025, Expires: 02/22/2026[facility] HealthcareComment on above: Expected: 02/22/2025, Expires: 02/22/2026Start: 02-22-2025 End: 48-04-5854FDW W Auto Differential panel - BloodCBC and differential Lab Routine care, subsequent in first trimester Expected: , Expires: 02/22/2026[facility] HealthcareComment on above:Expected: 02/22/2025, Expires: 02/22/2026Start: 02-22-2025 End: 87-08-0637OADT SCREEN 17 W/CONF, URDRUG SCREEN 17 W/CONF, UR Lab Routine Encounter for drug screening Expected: 02/22/2025, Expires: 02/22/2026[facility] HealthcareComment on above:Expected: 02/22/2025, Expires: 02/22/2026Start: 02-22-2025 End: 64-60-6892rJE, quantitative, pregnancyhCG, quantitative, Lab Routine examination or test, positive result Expected: 02/22/2025 (Approximate), Expires: 02/22/2026[facility] Work Phone: comment on above:Expected: 02/22/2025 (Approximate), Expires: 02/22/2026Start: 02-22-2025 End: 08-84-2547Wsrccghnp B virus surface Ag [Presence] in Serum or Plasma by ImmunoassayDetwiler Memorial HospitalComment on above:Expected: 02/22/2025, Expires: 02/22/2026Start: 02-22-2025 End: 16-19-8712Yxdadzzvl C virus Ab [Presence] in Serum or Plasma by Immunoassay Hepatitis C antibody Lab Routine care, subsequent in first trimester Expected: 02/22/2025, Expires: 02/22/2026[facility] HospitalComment on above:Expected: 02/22/2025, Expires: 02/22/2026Start: 02-22-2025 End: 22-19-1918AHK-2 antigen assayHIV-2 antigen Lab Routine care, subsequent in first trimester Expected: 02/22/2025, Expires: 02/22/2026[facility] HospitalComment on above:Expected: 02/22/2025, Expires: 02/22/2026Start: 02-22-2025 End: 10-72-0263Cex (dx) w/refl titer and confirmatory testingRpr (dx) w/refl titer and confirmatory testing Lab Routine care, subsequent in first trimester Expected: 02/22/2025, Expires: 02/22/2026[facility] Comment on above:Expected: 02/22/2025, Expires: 02/22/2026Start: 02-22-2025 End: 78-48-3326Hqmubhs antibody, IgGRubella antibody, IgG Lab Routine care, subsequent in first trimester Expected: 02/22/2025, Expires: 02/22/2026[facility] HospitalComment on above:Expected: 02/22/2025, Expires: 02/22/2026Start: 02-22-2025 End: 49-66-0419Bkvtrcxsnn complete panel - [facility] Work Phone: comment on above:Expected: 02/22/2025, Expires: 02/22/2026Start: 03-01-5849Biwiz [facility] Hospitaltart: 74-21-7576Kmcrmdum identified in Urine by CultureUrine [facility] Centertart: 77-15-9754MN Abdomen and Pelvis WO contrastKeenan Private Hospitaltart: 79-17-6587MF of abdomen and pelvis without contrastCT abdomen pelvis wo [facility] Hospitaltart: 51-20-2806Tpvwbkxs identified in Urine by [facility]art: 17-39-5320Erfbglwf identified in Urine by [facility]art: 10-51-2597Casxnzi CultureGenital [facility]ertart: 92-91-8081ZtnunuycaKeenan Private Hospitaltart: 13-04-6430QcdkvfdtrKeenan Private Hospitaltart: 09-65-9770Otyxssiu identified in Urine by [facility]art: 06-32-9873BizfkqykeKeenan Private Hospitaltart: 40-99-4616Qnoxcout identified in Urine by Culture Urine [facility]ertart: 72-27-4435DxkymuagfDetwiler Memorial HospitalAlbumin/Globulin ratioDetwiler Memorial Hospital Anion gap measurementDetwiler Memorial HospitalBacteria identified in Genital specimen by [employer] [facility] Work Phone: Bacteria identified in Genital specimen by [facility] HospitalBacteria identified in Genital specimen by [facility] HospitalBacteria identified in Urine by [facility] HospitalBasophils [#/volume] in Blood by Automated [facility] HospitalBasophils/100 leukocytes in Blood by Automated [facility] HospitalBilirubin.indirect [Mass/volume] in Serum or PlasmaDetwiler Memorial HospitalChlamydia trachomatis DNA [Presence] in Unspecified specimen by LEV with probe detection Detwiler Memorial HospitalEosinophils/100 leukocytes in Blood by Automated [facility] HospitalErythrocyte distribution width [Ratio] by Automated [facility] HospitalErythrocytes [#/volume] in CentervilleGENITAL MYCOPLASMAS LEV, SWABGENITAL MYCOPLASMAS LEV, SWAB Pathology and Cytology Routine Encounter for gynecological examination without abnormal finding Vaginitis and vulvovaginitis History of abnormal cervical Pap smear Ordered: 04/12/2025[facility] HospitalComment on above:Ordered: 04/12/2025Globulin [Mass/volume] in SerumDetwiler Memorial HospitalHematocrit [Volume Fraction] of CentervilleHemoglobin [Mass/volume] in [place] Hepatitis C virus IgG Ab [Presence] in Serum or Plasma by ImmunoassayDetwiler Memorial HospitalHIV 1+2 Ab+HIV1 p24 Ag [Presence] in Serum or Plasma by ImmunoassayDetwiler Memorial HospitalHIV-1/HIV-2 antigen/antibody combination immunoassayHIV-1 and HIV-2 antibodies Lab Routine 02/22/2025 2:20 PM [facility] [employer] Work Phone: IGP, APT HPV,RFX 16/18,45IGP, APT HPV,RFX 16/18,45 Lab Routine Encounter for gynecological examination without abnormal finding Encounter for screening for cervical cancer History of abnormal cervical Pap smear Ordered: 04/12/2025[facility] [employer] Work Phone: comment on above:Ordered: 04/12/2025Leukocytes [#/volume] corrected for nucleated erythrocytes in Blood by Automated coun [facility]wiler Memorial HospitalLeukocytes [#/volume] in CentervilleLymphocytes [#/volume] in Blood by Automated count [facility]iler Memorial HospitalLymphocytes/100 leukocytes in Blood by Automated countDetwiler Memorial HospitalMCH [Entitic mass] by Automated countDetwiler Memorial HospitalMCHC [Mass/volume] by Automated count [facility]wiler Memorial HospitalMCV [Entitic volume] by Automated [facility]'s HospitalMeasles virus IgG Ab [Units/volume] in Serum by ImmunoassayDetwiler Memorial HospitalMonocytes [#/volume] in Blood by Automated countDetwiler Memorial HospitalMonocytes/100 leukocytes in Blood by Automated [facility] HospitalNeisseria gonorrhoeae DNA [Presence] in Unspecified specimen by LEV with probe detectionDetwiler Memorial HospitalNeutrophils [#/volume] in Blood by Automated count [facility] Memorial HospitalNeutrophils/100 leukocytes in Blood by Automated [facility] HospitalNucleated erythrocytes [Presence] in Blood by Automated [facility] HospitalNuSwab Vaginitis Plus (VG+)NuSwab Vaginitis Plus (VG+) Microbiology Routine Encounter for gynecological examination without abnormal finding Vaginitis and vulvovaginitis History of abnormal cervical Pap smear Ordered: 04/12/2025[facility] HealthcareComment on above:Ordered: 04/12/2025Patient EducationBarnesville Hospital CtrPatient referralBarnesville Hospital CtrPlatelet mean volume [Entitic volume] in Blood by Automated [facility] HospitalPlatelets [#/volume] in BloodDetwiler Memorial HospitalReagin Ab [Presence] in Serum by [facility] CenterRPR W/RFX TO QUANT & TP ABS ([facility])RPR W/RFX TO QUANT & TP ABS ([facility]) Lab Routine 02/22/2025 2:20 PM EDTNOCT HealthcareThyroid stimulating immunoglobulins actual/normal in Serum Detwiler Memorial HospitalTrichomonas vaginalis DNA [Presence] in Unspecified specimen by LEV with probe detectionDetwiler Memorial Hospital Immunizations Immunization DateImmunizationNotesCare UzhwchxfFbxdocnr12-52-0094spcdzjq toxoid, reduced diphtheria toxoid, and acellular pertussis vaccine, adsorbedPHYSICIAN NO [facility]10-10-2013tetanus toxoid, reduced diphtheria toxoid, and acellular pertussis vaccine, adsorbed; Translations: [Tdap]Janna Gimenez [facility] Work Phone: [facility] Payers DatePayer CategoryPayerPolicy [id number] Health InsuranceCAR[facility]OWAG[facility] [place] [id number] [id number] [id number] 2.160.1.815000.3.579.2.364 [id number] 2.16840.1.299669.3.57[id number] 2.16840.1.782886.3.57[id number] 2.840.1.057328.3.57[id number] 2.840.1.450649.3.579.2.[id number] 2.16840.1.005724.3.579.[id number] 2.16840.1.172029.3.57[id number] 2.16840.1.352946.3.579.2.66[id number] 2.16840.1.786405.3.579.2.750340-22-1991Nbcoqxv16712758 2.16840.1.283753.3.579.2.252628-97-3679Kbvtzxk09933801 2.16840.1.077427.3.579.2.961388-10-2291Zpswckz33485061 2..1.065214.3.579.2.095794-84-1598Jupmmpa68380244 2..1.868640.3.579.2.408199-98-5849Zqzvlzg46803740 2..1.149781.3.579.2.275386-04-8908Hywolkr05526465 2..1.168784.3.579.2.44933-60-2411Ejprszr90630350053556-23-7425Rjmndxl [id number] 30vy2pm0-38fr-1278-e23i-ew70t2t5480tMihyxhd [facility] [id number] 4n52n9zn-8q2h-6503-1451-094iu70e027bDjlejqkCilsduh [facility]/[id number] t1z7a69g-o205-2r15-64r6-208r59awqn0nWpmxqvd67672650 2..1.328472.3.579.2.110Eggmemh31083985 2..1.848465.3.579.2.531 Ydqfsxx53149853 2..1.191862.3.579.2.730Azpdqdo24396281 2..1.596704.3.579.2.875Tluadmz13526230 2..1.452446.3.579.2.531 Jamsvnk45820272 2..1.152182.3.579.2.576Uwoatqv99532983 2..1.608140.3.579.2.910Nghlics31942353 2..1.768751.3.579.2.531 Xanracp95910979 2.840.1.183975.3.579.2.126Xkncclj98153466 2.840.1.344039.3.579.2.816Ppawzou57622997 2.16840.1.465603.3.579.2.531 Zhsvwkz11992680 2.840.1.111978.3.579.2.531 Social History DateTypeDetailFacilityStart: 11-10-2019 End: 23-38-4879Sgswsqx smoking status NHISNever smoked tobacco (finding) [facility] CenterStart: 53-56-9172Xah Assigned At BirthFemale [facility] Hospitaltart: 08-22-2022 End: 45-05-2387Demkinn smoking status NHISSmoker (finding)[facility]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 drainage, minimal edema with negative clinical signs of infection. Vascular: Palpable pedal pulses to right foot Neuro: Gross sensation intact to right foot. Musculoskeletal: Negative pain on palpation to right calf. Ortho: Ankle range of motion less than 10 degrees of dorsiflexion at right ankle joint. XRAY: XR ankle 3+ views right Imaging Result: Plate fixation intact with fixer fixation intact with well aligned anatomical fixation with fracture site apparent ASSESSMENT 7 days s/p ORIF right fibular fracture 1. Closed fracture of proximal end of right fibula, unspecified fracture morphology, initial encounter PLAN Reviewed x-rays today with patient Patient to keep dry sterile dressing intact and keep dressing dry with non weightbearing. Patient may take anti-inflammatories as needed for pain. May continue with ice to foot as needed p.r.n. Patient instructed to be strictly nonweightbearing to the foot Rowdy Honeycutt DPM documented in this encounterSt. Louis Children's [id number] History of Present illness Narrative* Rowdy Honeycutt DPM - 03/27/2025 11:10 AM EDT Patient: Beatris Mack : 2000 PCP: No primary care provider on file. SUBJECTIVE This is a 24 y.o. female that presents today for a chief complaint of right ankle fracture diagnosed that [facility]. Patient has been weight-bearing for the [...] risks, alternatives, benefits, post op complications and skilled nursing expectations were discussed including but not limited to: infection,bone infection,wound dehiscence hardware failure and irritation,wound dehiscence,delay union/mal union/non union of bone. RSDS,neuroma,duty limitations,DVT/PE, [place],nerve damage, scar, loss of sensation, swelling. Pt [...] 2025 Rowdy Honeycutt DPM documented in this encounterSt. Louis Children's [id number] Radiology Diagnostic study [facility] [place] [address] [place] [address] Ultrasound Report Signed Patient: Beatris Mack MR#: [id number] : 2000 Acct:[id number] Age/Sex: 24 / F ADM Date: 5 Loc: Room: Type: [facility] Attending Dr: Shad Alamo DO Ordering [...] Bojorquez M.D. 03/23/2025 4:40 PM Dictation Location: [facility]--20 Tech: Renetta Kiran Transcribed By: RADHA 03/23/25 1640 Dictated By: Shaan Bojorquez DO 03/23/25 1634 Signed By: 03/23/25 1640 [facility]07-01-2025 History of Present illness Narrative * Rowdy Honeycutt, HANNA - 03/21/2025 1:00 PM EDT Patient: Beatris Mack : 2000 PCP: No primary care provider on file. SUBJECTIVE This is a 24 y.o. female that presents today for a chief complaint of right ankle fracture diagnosed that [facility] ER. Patient has been weight-bearing [...] pneumatically inflated for proper customfitting by Rowdy Honeycutt DPM and staff. A [...] Patient may continue with conservative treatments including suln-tub-rjfqgpo anti- inflammatories and other treatments suggested today. Patient may want to be s cheduled for surgical intervention in the near future. Patient be scheduled in the near future for right fibular ORIF of fracture Rowdy Honeycutt DPM documented in this [facility]06-18-2025 Evaluation note* Diagnosis Onset Date Resolution Status Admit Date Fracture of lateral malleolus of right a nkle noneactiveJune 2024 2:12pm [facility] Work Phone: 1(846) 589-335206-05-2025 History of Present illness Narrative* Anuja Saab MD - 02/23/2025 5:28 PM EDT Low indicies documented in this [facility]06-05-2025 Telephone encounter Note* Telephone Encounter - Nhi [...] Encouraged pt to call if symptoms worsen. [facility] [id number] Miscellaneous Notes* Telephone Encounter - Nhi Castro [...] Pt called, requesting labs be sent to [facility]. Labs sent * [...] to go to hospital. documented in this encounterNOMS [id number] Telephone encounter Note* Telephone Encounter - Nhi Castro RN - 02/22/2025 2:03 PM EDT Pt called, requesting labs be sent to [facility]. Labs sent [facility] HospitalEfwkelpphl07-29-7336 Telephone encounter Note* Telephone Encounter - Nhi [...] severe cramping occurs to go to hospital. [facility] [id number] History of Present illness Narrative* Dayna Alvarado [...] oz F Vag-Spont N LAVELLE 2 SAB 2014 1 IAB Past Medical / Surgical History [...] MA 02/22/2025 9:27 AM documented in this encounterSt. Louis Children's [id number] NoteEducation Materials Obstetrics and Gynecology Trichomoniasis Trichomoniasis [...] . Your health care provider may recommend scgq-uqx-qldjjmf medicines or creams to help relieve itching or irritation. You may be tested for infection again 3 months after treatment. Follow these instructions at home: ? Take and use wptm-uov-ofqbata and prescription medicines, including creams, only as [...] if necessary. This informatio (more content not included)...[facility] note* Clinical Note Date No Information [facility] Work Phone: Discharge summary* Clinical Note Date No Information [facility] Work Phone: Evaluation noteNo assessment information available [facility] Work Phone: Evaluation note* Diagnosis Anemia, unspecified type- Primary documented in this encounter [facility]* Diagnosis Urinary tract infection without hematuria, site unspecified- Primary examination or test, positive result documented in this encounter [facility]* Diagnosis care, subsequent in first trimester Encounter for drug screening documented in this encounter [facility]* Diagnosis Closed fracture of proximal end of right fibula, unspecified fracture morphology, initial encounter- Primary documented in this encounter [facility]* Diagnosis Closed fracture of proximal end of right fibula, unspecified fracture morphology, initial encounter- Primary documented in this encounter [facility]* Diagnosis Closed fracture of proximal end of right fibula, unspecified fracture morphology, initial encounter- Primary documented in this encounter [facility]* Diagnosis Closed fracture of proximal end of right fibula, unspecified fracture morphology, initial encounter- Primary documented in this encounter [facility]* Diagnosis Encounter for gynecological examination without abnormal finding Encounter for screening for cervical cancer Vaginitis and vulvovaginitis Missed with demise before 20 completed weeks of gestation ([facility]) History of abnormal cervical Pap smear documented in this encounter [facility]* Diagnosis Closed fracture of proximal end of right fibula, unspecified fracture morphology, initial encounter- Primary documented in this encounter [facility]* Diagnosis History of abnormal cervical 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 documented in this encounter [facility]* Type Assessment Date No Information [facility] Work Phone: History and physical note* Clinical Note Date No Information [facility] Work Phone: History of Past illness Narrative* Condition Effective Dates (start - stop) O utcome No Information [facility] Work Phone: History of Present illness Narrative* Encounter Date Complaint History Of Prese nt Illness No Information [facility] Work Phone: Hospital Discharge instructions Additional Instructions Do not have sexual intercourse for at least 2 weeks, this includes oral sex You need to use condoms Right all your sexual partners and their sexual partners must be treated Do not have sex again and said everyone has been treated or you will pass disease back in forth You may call [phone] for your results in 3 days Please follow-up with Dr. Saab office Is important that you take your antibiotic as instructed until gone Please return here if you develop any abdominal pain, vaginal bleeding, increased discharge or any other concernT[facility] Work Phone: Hospital Discharge instructions Additional Instructions If your symptoms return/worsen or you develop any further concerns or symptoms please see your doctor or return to the emergency department immediately. Please be sure to follow-up with the results of your tests.[facility] Work Phone: Hospital Discharge instructions Additional Instructions If you end up having bacterial vaginosis or any sexually transmitted infections, we will call you and prescribe appropriate antibiotics. Follow-up with your [facility] physician for any persistent symptoms in 5 to 7 days.[facility] Work Phone: Hospital Discharge instructions Additional Instructions If your symptoms return/worsen or you develop any further concerns or symptoms please see your doctor or return to the emergency department immediately.[facility] Work Phone: Instructions* Date Instruction Additional Infor mation No Information [facility] Work Phone: Progress note* Clinical Note Date No Information [facility] Work Phone: Reason for referral (narrative)No reason for referral information availableTwin City Hospital Work Phone: Reason for referral (narrative)* Reason For Referral No Information [facility] Work Phone: Review of systems Narrative - Reported* System Pos/Neg Findings No Information [facility] Work Phone: Summary Purpose Family History Relationship Condition Age at Onset Recorded Date/T scott Not Specified No pertinent family history Unknown Family Member Type Diagnosis Age At Onset Brother Problem (finding) Alive and well MotherProblem (finding)Hepatitis CPaternal grandmotherProblem (finding) hypertensionMotherProblem (finding)Alive and wellSisterProblem (finding)Alive and wellPaternal grandfatherProblem (finding)FatherProblem (finding)Alive and wellPaternal grandmotherProblem (finding)Alive and wellFatherProblem (finding) diabetes mellitus in first degree relativePaternal grandfatherProblem (finding) stroke Advance Directives Advance Directive Response Recorded Date/ Time Advance Directives No August 25, 2017 10:41pm Advance Directive Response Recorded Date/ Time Advance Directives No August 25, 2017 11:41pm Directive Yes / No Effective Date File Name No Information Chief Complaint and Reason for Visit From encounter dated 07/12/2025 09:48'. dn (chief complaint). Description: dn Chief Complaint lower back pain Poss yeast [...] m R79.89 March 23, 2025 1:36p m Chief Complaint Admit Date F41.1 February 01, 2025 2:53p m R79.89 February 15, 2025 2:40p m Z34.81 February 22, 2025 2:08p m Z34.81 February 23, 2025 12:43 pm bleeding, February 28, 2025 5:28 pm fall/ankle pain March 02, 2025 4:09 pm right ankle injury March 08, 2025 2:12 pm Z32.01, O20.9 March 21, 2025 2:09p m R79.89 March 23, 2025 1:36p m rt side pain, back pain nausea March 2:41pm Unknown April 01, 2025 5:00 pm Assessments No Assessments Information Available Additional Source Comments INFORMATION SOURCE (unrecogn ized section and content) DATE CREATED AUTHOR 05/23/2019 [facility] DATE CREATED AUTHOR AUTHOR'S ORGANIZ ATION 06/19/2020 [facility] DATE CREATED AUTHOR AUTHOR'S ORGANIZ ATION 09/12/[address] [facility] DATE CREATED AUTHOR AUTHOR'S ORGANIZ ATION 08/06/2022 [facility] DATE CREATED AUTHOR AUTHOR'S ORGANIZ ATION 07/21/2024 [facility] DATE CREATED AUTHOR AUTHOR'S ORGANIZ ATION 04/21/2025 [facility] EPIC DATE CREATED AUTHOR AUTHOR'S ORGANIZ ATION 04/28/2025 [facility] DATE CREATED AUTHOR AUTHOR'S ORGANIZ ATION 07/13/2025 [facility] Care Teams (unrecognized sec tion and content) Team Status: Inactive Member Role Status Dates PHYSICIAN NO FAMILY Primary Care Provider Active Lilliam Linares DO RESActiveThTrisha Xiao Jr ProviderActive Team Status: Active Member Role Status Dates PHYSICIAN NO FAMILY Primary Care Provider Active Team Status: Inactive Member Role Status Dates PHYSICIAN NO FAMILY Primary Care Provider Active Viola Pond ProviderActive Team Status: Inactive Member Role Status Dates PHYSICIAN NO FAMILY Primary Care Provider Active Yessenia Marinelli ProviderActive Team Status: Inactive Member Role Status Dates PHYSICIAN NO FAMILY Primary Care Provider Active Yessenia Pritchard ProviderActive Team Status: Inactive Member Role Status Dates PHYSICIAN NO FAMILY Primary Care Provider Active Start: August 26, 2023 End: August 27Yessenia Summers ProviderActiveStart: August 26, 2023 End: August 27, 2023 Team Status: Inactive Member Role Status Dates PHYSICIAN NO FAMILY Primary Care Provider Active Start: October 14, 2023 End: October 14, 2023Yessenia Lomeli ProviderActiveStart: October 14, 2023 End: October 14, 2023 Team Status: Inactive Member Role Status Dates PHYSICIAN NO FAMILY Primary Care Provider Active Start: January 15, 2024 End: January 15, 2024Yessenia Marinelli ProviderActiveStart: January 15, 2024 End: January 15, 2024 Team Status: Inactive Member Role Status Dates PHYSICIAN NO FAMILY Primary Care Provider Active Start: July 11, 2024 End: July 11Yessenia Summers ProviderActiveStart: July 11, 2024 End: July 11, 2024 [...] Status: Active Member Role Status Dates [facility] Primary Care Provider Ac tive Team Status: Inactive Member Role Status Dates Shad Alamo DO Attending Provider Active St art: February 15, 2025 End: February 15, 2025[facility] ProviderActive Start: February 15, 2025 End: February 15, 2025Team MemberRelationshipSpecialtyStart DateEnd Date Ivy Corbin MANAGER CONTENT [address] [place] [address] [facility]03/21/24Team MemberRelationshipSpecialtyStart DateEnd Date Ivy Corbin MANAGER CONTENT [address] [place] [address] [place] [address] Team Status: Inactive Member Role Status Dates [facility] Primary Care Provider Ac tive Start: February 22, 2025 End: February 22, 2025Bassam Rogers ProviderActiveStart: February 22, 2025 End: February 22, 2025Team MemberRelationshipSpecialtyStart DateEnd Date Ivy Corbin MANAGER CONTENT [address] [place] [address] [facility]03/21/24Team MemberRelationshipSpecialtyStart DateEnd Date Ivy Corbin MANAGER CONTENT [address] [place] [address]10/14Team MemberRelationshipSpecialtyStart DateEnd Date Ivy Corbin, MANAGER CONTENT [address] [place] [address] [facility]03/21/24 Team Status: Inactive Member Role Status Dates [facility] Primary Care Provider Ac tive Start: February 23, 2025 End: February 23, 2025Anuja Saab MDAttmikal ProviderActiveStart: February 23, 2025 End: February 23, 2025Team MemberRelationshipSpecialtyStart DateEnd Date Ivy Corbin, MANAGER CONTENT [address] [facility] [address] [place] [address] [facility]03/21/24Team MemberRelationshipSpecialtyStart DateEnd Date Ivy Corbin MANAGER CONTENT [address] [facility] [address] [place] [address] [facility]03/21/24 Team Status: Inactive Member Role Status Dates [facility] Primary Care Provider Ac tive Start: February 28, 2025 End: February 28Viola Saldana ProviderActiveStart: February 28, 2025 End: February 28, 2025Team MemberRelationshipSpecialtyStart DateEnd Date Ivy Corbin, MANAGER CONTENT [address] [facility] [address] [place] [address] [address]10/14Team MemberRelationshipSpecialtyStart DateEnd Date Ivy Corbin, MANAGER CONTENT [address] [facility] [address] [place] [address] [place] [address] Team Status: Inactive Member Role Status Dates Shad Alamo DO Primary Care Provider Active Start: February 01, 2025 End: February 01irvin Alamo DOAttending ProviderActiveStart: February 01, 2025 End: February 01, 2025 Team Status: Inactive Member Role Status [facility] Primary Care Provider Ac tive Start: March 02, 2025 End: March 02, 2025Viola Landaverde ProviderActiveStart: March 02, 2025 End: March 02, 2025 Team Status: Inactive Member Role Status [facility] Primary Care Provider Ac tive Start: March 08, 2025 End: March 08Ian Ordaz ProviderActiveStart: March 08, 2025 End: March 08, 2025 Team Status: Inactive Member Role Status [facility] Primary Care Provider Ac tive Start: March 21, 2025 End: March 21, 2025Bassam Rogers ProviderActiveStart: March 21, 2025 End: March 21, 2025 Team Status: Inactive Member Role Status [facility] Primary Care Provider Ac tive Start: March 23, 2025 End: March 23Rosalio Duque ProviderActiveStart: March 23, 2025 End: March 23, 2025Team MemberRelationshipSpecialtyStart DateEnd Date Ivy Corbin NP [address] [facility] [address] [place] [address] PCP - [facility]03/21/24 Unallocated, [place] [address] [facility]Team MemberRelationshipSpecialtyStart DateEnd Date Ivy Corbin NP [address] [facility] [address] [place] [address] PCP [facility]03/21/24 Unallocated, [place] [address] PCP - [facility]03/22/25 Team Status: Active Member Role Status Dates NON STAFF Primary Care Provider Active Team Status: Inactive Member Role Status Dates NON STAFF Primary Care Provider Active Start: April 01, 2025 End: April 01, 2025Carlton Brayan Palenciaromel Mikayla ProviderActiveStart: April 01, 2025 End: April 01, 2025 Team Status: Active Member Role Status Dates Jasmin Linton MD Attending Provider Active Sta rt: April 01, 2025 Team Status: Inactive Member Role Status Dates Jasmin Linton MD Attending Provider Active Sta rt: April 01, 2025 End: April 01, 2025Team MemberRelationshipSpecialtyStart DateEnd Date Ivy Corbin, MANAGER CONTENT [address] [place] [address] [address] - [facility]03/21/24 Unallocated, [place] [address] [facility] - [facility]03/22/25Team MemberRelationshipSpecialtyStart DateEnd Date Ivy Corbin, MANAGER CONTENT [address] [facility] [address] [place] [address] PCP - [facility]03/21/24 Unallocated, Jon Valenzuela MD [address] [place] [address] [facility] - [facility]03/22/25Team MemberRelationshipSpecialtyStart DateEnd Date Ivy Corbin, MANAGER CONTENT [address] [facility] [address] [place] [address] PCP [facility]03/21/24 Unallocated, [place] [address] PCP - [facility]03/22/25Team MemberRelationshipSpecialtyStart DateEnd Date Ivy Corbin NP [address] [place] [address] PCP - [facility]03/21/24 Unallocated, Jon Provider, [address] [place] [address] PCP - [facility]03/22/25 Name Effective Dates (start - stop) Status Members No Information Team MemberRelationshipSpecialtyStart DateEnd Date Ivy Corbin NP [address] [facility] [address] [place] [address] [address] - [facility]03/21/24 Unallocated, Jon Provider, [address] [place] [address] PCP - [facility]03/22/25 Goals (unrecognized section and content) Health Concern Goal Type Priority Status No Information Reason for Visit (unrecogniz ed section and content) ReasonCommentsInitial VisitNurse visitReasonCommentsFoot/ankle Fracture ReasonCommentsConsent Or InstructionspreopReasonCommentsPost-op7d s/p orifReason CommentsPost-op14d s/p rt orifReasonCommentsGynecologic ExamPatient present for yearly, patient states that she thinks she may have a UTI or BV. LMP: 04/04/25 ReasonCommentsPost-op21d s/p rt orifReasonCommentstelevisit FOR RECORDS PERTAINING TO PATIENTS WHO ARE [...] BE BASED ON THE PRIMARY CLINICAL RECORDS. [facility] [facility]. provides no warranty or guarantee of the accuracy or completeness of information in this document.
--- OUTSIDE RECORDS SUMMARY | 2025-08-12 10:00 | XMS_ITS | Clinical Summary ---
Author Organization [employer] [facility] tem Address [id number] [place] [address] Care Team Providers Care Anesthesiology Medical Doctor Name Role Phone Pcp, Not In System Primary Care Provider Unavail able Allergies Active AllergyReactionsCriticalityNoted DateCommentsPenicillinsHivesLow 05/23/2016 Medications No known medications Social History Tobacco UseTypesPacks/DayYears UsedDateSmoking Tobacco: NeverSmokeless Tobacco: NeverCommentsNoSex and Gender InformationValueDate RecordedSex Assigned at BirthNot on fileLegal WdbKdsaxj50/23/2021 11:25 AM EDTGender IdentityNot on fileSexual OrientationNot on file Last Filed Vital Signs Vital SignReadingTime TakenCommentsBlood Xvqveanp467/8706 11:38 AM EDT Elpsy497103/13/2021 11:38 AM QUHWklofrvyyse65.8 ??C (98.2 ??F)03/13/2021 11:38 AM EDTRespiratory Xeyl031103/13/2021 11:38 AM EDTOxygen Gkpvcibsha64%03/13/2021 11:38 AM EDTInhaled Oxygen Concentration--Havvfh98.1 kg (170 lb)03/13/2021 11:38 AM DHXAsefcl336.2 cm (5' 7 )03/13/2021 11:38 AM EDTBody Mass Index26.6306 11:38 AM EDT Plan of Treatment Not on file Medical Devices Not on file Insurance MemberSubscriberPlan / Payer (Effective 2020-Present)Name:Beatris Andujar Relation to Subscriber:ChildName:RENATA ANDUJAR Date of :1969 (Home) Address: [address] [place] [id number] Payer ID:Not on file Type:Not on file Address: [address] [place] [id number] Care Teams Team MemberRelationshipSpecialtyStart DateEnd Date Pcp, [place] [address] PCP - GeneralFamily Medicine03/13/21
--- OUTSIDE RECORDS SUMMARY | 2025-08-12 10:00 | XMS_ITS | Clinical Summary ---
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 Name Role Phone Linda Story MD Primary Care Provider [phone] Allergies Active AllergyReactionsCriticalityNoted DateCommentsPenicillinsHivesLow 04/03/2017 Medications No known medications Family History Medical HistoryRelationCommentsKidney StonesFatherKidney StonesMotherRelation StatusCommentsFatherAliveMotherAlive Social History Tobacco UseTypesPacks/DayYears UsedDateSmoking Tobacco: NeverComments UnknownSex and Gender InformationValueDate RecordedSex Assigned at BirthNot on fileLegal TftWzjfjg80/17/2017 12:00 PM EDTGender IdentityNot on fileSexual OrientationNot on file Last Filed Vital Signs Vital SignReadingTime TakenCommentsBlood Pressure--Pulse--Nsmilbbhnfc00.1 ??C (98.7 ??F)04/03/2017 9:49 AM EDTRespiratory Rate--Oxygen Saturation--Inhaled Oxygen Concentration--Vbfjsa58.4 kg (141 lb 15.6 oz)07/03/2017 12:04 PM EDT Eqklne048 cm (5' 6.93 )07/03/2017 12:04 PM EDTBody Mass Index22.281 12:04 PM EDT Plan of Treatment Health MaintenanceDue DateLast DoneCommentsMMR (1 of 1 - Standard series) 2001Tetanus Diphtheria and Pertussis Vaccines (1 - Tdap)2007 Varicella (1 of 2 - 13+ 2-dose series)2013HPV (1 - 3-dose series) 2015MenB (1 of 2 - MenB 2-Dose Series Bexsero)2016Hepatitis B (1 of 3 - 19+ 3-dose series)2019COVID-19 ( season)2025FLU (#1) 05/22/2025HIBAged OutNo longer eligible based on patient's age to complete this topicHepatitis AAged OutNo longer eligible based on patient's age to complete this topicMenACWYAged OutNo longer eligible based on patient's age to complete this topicNirsevimabAged OutNo longer eligible based on patient's age to complete this topicPneumococcalAged OutNo longer eligible based on patient's age to complete this topicPolioAged OutNo longer eligible based on patient's age to complete this topicRotavirusAged OutNo longer eligible based on patient's age to complete this topic [place] [address] Care Teams Team MemberRelationshipSpecialtyStart DateEnd Date Linda Story MD [address] [place] [address] [facility] - [facility]02/04/17
--- OUTSIDE RECORDS SUMMARY | 2025-08-12 10:00 | XMS_ITS | Clinical Summary ---
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 Name Role Phone Unavailable Primary Care Provider Unavailabl e Social History Tobacco UseTypesPacks/DayYears UsedDateSmoking Tobacco: Never Assessed CommentsUnknownSex and Gender InformationValueDate RecordedSex Assigned at Not on fileLegal MdpEywkyq81/29/2016 2:15 PM EDTGender IdentityNot on fileSexual OrientationNot on file Plan of Treatment Health MaintenanceDue DateLast DoneCommentsPeds To Adult Transition Initial Ojhyzgacma26/03/2012Peds To Adult Transition Annual Lipxewrjmi99/03/2014HPV Vaccine (1 - 3-dose series)2015nxiety Azgchkqul70/03/2018Depression Gbvidllro30/03/2018HIV Ymofzjenh55/03/2018Hepatitis C Bcmxprysa62/03/2018 DTaP,Tdap,Td Vaccine (1 - Tdap)2019Hepatitis B Vaccine (1 of 3 - 19+ 3- dose series)2019Cervical Cancer Tmkbrrgmb82/03/2021Covid-19 Vaccine (1 - 2024-26 season)2025Influenza Vaccine (#1)2025 Insurance
[2025-08-12 10:24] LABS: Glucose Urine UA NEGATIVE (NEGATIVE); HCG Qualitative Urine* NEGATIVE (NEGATIVE)
[2025-08-12 10:51] LABS: Cast Seen? NONE SEEN #/LPF (NONE SEEN); Crystals Seen? None Seen #/HPF (None Seen); Urine Culture Indicated YES-FRMC
--- NOTE | 2025-08-12 11:21 | ED.GENADUL1 ---
HPI HPI - General Adult General Chief complaint: Urogenital-Female Stated complaint: URINARY COMPLICATIONS Time Seen by Provider: 08/12/25 09:42 Source: patient Mode of arrival: walk-in History of Present Illness HPI narrative: The patient presented to the ER almost 1 week after she was already treated for possible vaginal infection mostly Batool as well as bacterial vaginosis, at that time the patient was treated with local cream for both pathology, patient mentioned that for the last 24 hours she has been having more itching no pain but she does have burning and frequency No other concerns and she did mention that she have risk factor for STD Related Data Previous Rx's ?Medication ?Instructions ?Recorded fluconazole 150 mg tablet 150 mg PO ONCE #1 tab 08/12/25 nitrofurantoin 100 mg PO BID 5 days #10 caps 08/12/25 monohydrate/macrocrystals 100 mg capsule (Macrobid) Allergies Allergy/AdvReac Type Severity Reaction Status Date / Time Penicillins AdvReac Mild Rash Verified 11/15/24 04:04 Opioid HPI Opioid Management Most Recent Opioid Data: Last Pain Scale 5 04/03/25, 01:00 Last ORT Total Score 1 04/01/25, 20:25 Last ORT Risk Category Low Risk 04/01/25, 20:25 Review of Systems ROS Status of ROS 10 or more systems reviewed and unremarkable except as noted in history and below PFSH PFSH Medical History Vapes nicotine containing substance ?Z72.0 - Tobacco use (ICD-10) Family History (Updated 04/01/25 @ 20:40 by Elisabeth Gurrola RN) Other Patient denies significant medical history Social History (Updated 04/01/25 @ 20:40 by Elisabeth Gurrola RN) Smoking status: Current every day smoker Do you use any of these nicotine containing products: vaping products Non-prescribed substance use: denies use Known occupational exposures/hazards: No Highest level of school completed/degree received: high school graduate Do you want help with school or training: No Little interest or pleasure in doing things: not at all Feeling down, depressed, or hopeless: not at all Feel stressed/tense/nervous/anxious/difficulty sleeping: only a little Due to disability, difficulty making decisions: No Exam Narrative Exam Narrative: Nurses notes and vital signs reviewed and patient is not hypoxic. General: Well-appearing and in no apparent distress. Skin: Warm, dry, no pallor noted. No rash. Head: Normocephalic, atraumatic. Cardiovascular: Regular Rate and Rhythm without murmur, gallop or rub. Respiratory: No accessory muscle use or respiratory distress. Lungs are clear to auscultation, no wheezing, rales or rhonchi GI: Abdomen is soft, non-distended. Normal bowel sounds. No masses appreciated. No tenderness to palpation. No rebound, guarding, or rigidity noted. Neurological: A&O x4. No cranial nerve dysfunction observed. No truncal ataxia. Moves all extremities. Sensation intact. Psychiatric: Cooperative and interactive. Normal mood and affect. Constitutional Vital Signs, click to edit/add: Last Vital Signs Pulse 80 08/12/25 09:34 Resp 18 08/12/25 09:34 BP 142/90 H 08/12/25 09:34 Pulse Ox 99 08/12/25 09:34 O2 Del Method Room Air 08/12/25 09:34 Course Vital Signs Vital signs: Vital Signs Pulse Rate 80 08/12/25 09:34 Respiratory Rate 18 08/12/25 09:34 Blood Pressure 142/90 H 08/12/25 09:34 Pulse Oximetry 99 08/12/25 09:34 Oxygen Delivery Method Room Air 08/12/25 09:34 Pulse Rate 80 08/12/25 09:34 Respiratory Rate 18 08/12/25 09:34 Blood Pressure 142/90 H 08/12/25 09:34 Pulse Oximetry 99 08/12/25 09:34 Oxygen Delivery Method Room Air 08/12/25 09:34 Medical Decision Making [facility] Narrative Medical decision making narrative: The patient vaginal discharge and she could be secondary to vaginal infection and right now I did send her urine for chlamydia and gonorrhea testing test is negative but urinalysis positive for UTI Patient was started on Macrobid in addition to fluconazole provided with 1 pill here and 1 pill to be taken after she finishes Macrobid Patient instructed about hydration monitoring her symptoms and come back to the ER in case of any worsening specially that in case of any development of any lesion or any swelling in her perennial area The patient to follow-up with the primary care within 2 to 3 days and to come back to the ER in case of any worsening of the current symptoms or any new symptoms or concerns Lab Data Labs: Lab Results 08/12/25 Range/Units 09:39 Urine Color Lt. yellow (YELLOW) Urine Clarity Sl cloudy (CLEAR) Urine pH 6.0 (5.0-9.0) Ur Specific [place] 1.025 (1.005-1.025) Urine Protein Negative (NEG/TRACE) mg/dL Urine Glucose (UA) Negative (NEGATIVE) mg/dL Urine Ketones Negative (NEGATIVE) mg/dL Urine Occult Blood Trace-i (NEGATIVE) Urine Nitrite Negative (NEGATIVE) Urine Bilirubin Negative (NEGATIVE) Urine Urobilinogen 0.2 (0.2-1.0) EU/dL Ur Leukocyte Esterase Large A (NEGATIVE) Urine RBC 2-5 A (0-2) #/HPF Urine WBC 50-75 A (NONE SEEN) #/HPF Ur Squamous Epith Cells Moderate A (NONE/RARE) #/LPF Urine Crystals None seen (None Seen) #/HPF Urine Bacteria Large A (NONE SEEN) #/HPF Urine Casts None seen (NONE SEEN) #/LPF Urine Mucus Trace A (NONE SEEN) Ur Culture Indicated? Yes-[facility] Urine HCG, Qual Negative (NEGATIVE) Discharge Plan Discharge Chief Complaint: Urogenital-Female Clinical Impression: UTI (urinary tract infection), Batool infection Patient Disposition: Home, Self-Care Time of Disposition Decision: 11:22 Condition: Good Prescriptions / Home Meds: New nitrofurantoin monohyd/m-cryst [Macrobid] 100 mg capsule 100 mg PO BID 5 Days Qty: 10 0RF Rx Instructions: must administer with a meal/food fluconazole 150 mg tablet 150 mg PO ONCE Qty: 1 0RF Rx Instructions: Please take once after finishing the antibiotic course Print Language: Monegasque Instructions: Urinary Tract Infection in Women (DC), Yeast Infection (ED) Additional Instructions: Please hydrate well and come back to the ER in case any new symptoms The patient to follow-up with the primary care within 2 to 3 days and to come back to the ER in case of any worsening of the current symptoms or any new symptoms or concerns Referrals: Shad Alamo DO [Primary Care Provider] - 1 week Discharge Date/Time: 08/12/25 11:42
[2025-08-12] MEDS: FLUCONAZOLE 150 MG TABLET PO (11:30)
[2025-08-14 21:07] LABS: Neisseria gonorrhoeae, NAA Negative (Negative)
== END 2025-08-12 11:42 | disposition home or self-care (01) ==
PROVIDERS: Emergency Provider Emergency Medicine; PCP Student in an Organized Health Care Education/Training Program
DX: N39.0 Urinary tract infection, site not specified (principal); B37.9 Candidiasis, unspecified; F17.290 Nicotine dependence, other tobacco product, uncomplicated
CPT/HCPCS: 81001; 84703; 87086; 87491; 87591; 99283